=== PATIENT | female | born 1960 | race Hispanic/Latino ===

== ENCOUNTER 2021-08-02 14:10 | Inpatient (IN) | payer OTHER ==
--- OUTSIDE RECORDS SUMMARY | 2021-08-02 14:13 | XMS REPORT | Continuity of Care Document ---
:1960 Author Organization [facility] t Address [address] [place] [address] [place] [id number] Care Team Providers Name Role Phone Shankar MEYER Attending Clinician Unavailable Problems This patient has no known problems. Allergies, Adverse Reactions, Alerts This patient has no known allergies or adverse reactions. Medications This patient has no known medications. Procedures This patient has no known procedures. Results Test Description Test Time Test Comments Results Result Comments Source MISCELLANEOUS LAB ORDER 2021-04-23 10:27:00 Test Item Value Reference Range Interpretation Comme nts SCAN RESULT (test code = 0157137) See scanned [id number] 14:57:00 Test Item Value Reference Range Interpretation Comments FERRITIN (BEAKER) (test code = 425.05 ng/mL 5.00-275.00 H 361) Marriage Therapist ID - JAVI CALPHA FETOPROTEIN (AFP), TUMOR [id number] 14:16:00 Test Item Value Reference Range Interpretation Comments ALPHA-FETOPROTEIN (BEAKER) (test 38.9 ng/mL <10.0 H code = 1094) Marriage Therapist ID - MARJ MHEPATITIS B CORE ANTIBODY, [id number] 14:16:00 Test Item Value Reference Range Interpretation Comments HEPATITIS B CORE TOTAL ANTIBODY Nonreactive Nonreactive (BEAKER) (test code = 497) Marriage Therapist ID - MARJ ADÁN, TIBC, % SAT. (WITHOUT FERRITIN)2021-04-16 13:52:00 Test Item Value Reference Range Interpretation Comments IRON (BEAKER) (test code = 547) 136.0 ug/dL 40.0-160.0 TOTAL IRON BINDING CAPACITY 325 ug/dL 250-450 (BEAKER) (test code = 769) IRON % SATURATION (2) (BEAKER) 42 % 20-55 (test code = 2590) Marriage Therapist ID - MARJ MCOMPREHENSIVE METABOLIC [id number] 13:50:00 Test Item Value Reference Range Interpretation Comments TOTAL PROTEIN 7.9 gm/dL 6.0-8.3 (BEAKER) (test code = 770) ALBUMIN (BEAKER) 3.8 g/dL 3.5-5.0 (test code = 1145) ALKALINE PHOSPHATASE 175 U/L 40-150 H (BEAKER) (test code = 346) BILIRUBIN TOTAL 1.9 mg/dL 0.2-1.2 H (BEAKER) (test code = 377) SODIUM (BEAKER) (test 136 meq/L 136-145 code = 381) POTASSIUM (BEAKER) 4.8 meq/L 3.5-5.1 (test code = 379) CHLORIDE (BEAKER) 106 meq/L 98-107 (test code = 382) CO2 (BEAKER) (test 24 meq/L 22-29 code = 355) BLOOD UREA NITROGEN 10 mg/dL 7-21 (BEAKER) (test code = 354) CREATININE (BEAKER) 0.76 mg/dL 0.57-1.25 (test code = 358) GLUCOSE RANDOM 88 mg/dL 70-105 (BEAKER) (test code = 652) CALCIUM (BEAKER) 9.3 mg/dL 8.4-10.2 (test code = 697) AST (SGOT) (BEAKER) 106 U/L 5-34 H (test code = 353) ALT (SGPT) (BEAKER) 96 U/L 6-55 H (test code = 347) EGFR (BEAKER) (test 94 mL/min/1.73 ESTIMA ANA MARÍA GFR IS code = 1092) sq m NOT ACCURATE CREATININE CLEARANCE IN PREDICTING GLOMERULAR FILTRATION RATE . ESTIMATED GFR I S NOT APPLICABLE FOR DIALYSIS PATIEN TS. Marriage Therapist ID - MARJ MBILIRUBIN, [id number] 13:50:00 Test Item Value Reference Range Interpretation Comments BILIRUBIN DIRECT (BEAKER) (test 1.1 mg/dL 0.1-0.5 H code = 706) Marriage Therapist ID - MARJ MPROTHROMBIN [id number] 13:30:00 Test Item Value Reference Range Interpretation Comments PROTIME (BEAKER) 14.9 seconds 11.9-14.2 H (test code = 759) INR (BEAKER) (test 1.20 See_Comment [Automat ed message] code = 370) The system [employer] generated this result transmitted ref erence range: <=5.90. The reference range was not used to int erpret this result as normal/abnormal . RECOMMENDED COUMADIN/WARFARIN INR THERAPY RANGESSTANDARD DOSE: 2.0 - 3.0 Includes: PROPHYLAXIS forvenous thrombosis, systemic embolization; TREATMENT for venous thrombosis and/or pulmonary embolus.HIGH RISK: Target INR is 2.5-3.5 for patients with mechanical heart valves.CBC W/PLT COUNT & AUTO DIFFERENTIAL 2021-04-16 13:25:00 Test Item Value Reference Range Interpretation Comments WHITE BLOOD CELL COUNT (BEAKER) 8.3 K/ L 3.5-10.5 (test code = 775) RED BLOOD CELL COUNT (BEAKER) 3.96 M/ L 3.93-5.22 (test code = 761) HEMOGLOBIN (BEAKER) (test code = 13.1 GM/DL 11.2-15.7 410) HEMATOCRIT (BEAKER) (test code = 40.8 % 34.1-44.9 411) MEAN CORPUSCULAR VOLUME (BEAKER) 103.0 fL 79.4-94.8 H (test code = 753) MEAN CORPUSCULAR HEMOGLOBIN 33.1 pg 25.6-32.2 H (BEAKER) (test code = 751) MEAN CORPUSCULAR HEMOGLOBIN CONC 32.1 GM/DL 32.2-35.5 L (BEAKER) (test code = 752) RED CELL DISTRIBUTION WIDTH 13.6 % 11.7-14.4 (BEAKER) (test code = 412) PLATELET COUNT (BEAKER) (test code 97 K/CU MM 150-450 L = 756) MEAN PLATELET VOLUME (BEAKER) 12.8 fL 9.4-12.3 H (test code = 754) NUCLEATED RED BLOOD CELLS (BEAKER) 0 /100 WBC 0-0 (test code = 413) NEUTROPHILS RELATIVE PERCENT 62 % (BEAKER) (test code = 429) LYMPHOCYTES RELATIVE PERCENT 23 % (BEAKER) (test code = 430) MONOCYTES RELATIVE PERCENT 10 % (BEAKER) (test code = 431) EOSINOPHILS RELATIVE PERCENT 4 % (BEAKER) (test code = 432) BASOPHILS RELATIVE PERCENT 1 % (BEAKER) (test code = 437) NEUTROPHILS ABSOLUTE COUNT 5.12 K/ L 1.56-6.13 (BEAKER) (test code = 670) LYMPHOCYTES ABSOLUTE COUNT 1.92 K/ L 1.18-3.74 (BEAKER) (test code = 414) MONOCYTES ABSOLUTE COUNT (BEAKER) 0.86 K/ L 0.24-0.36 H (test code = 415) EOSINOPHILS ABSOLUTE COUNT 0.30 K/ L 0.04-0.36 (BEAKER) (test code = 416) BASOPHILS ABSOLUTE COUNT (BEAKER) 0.05 K/ L 0.01-0.08 (test code = 417) IMMATURE GRANULOCYTES-RELATIVE 0 % 0-1 PERCENT (BEAKER) (test code = 2801)
[2021-08-02 15:02] LABS: Basophils % 0.5 % (0-1.3); Hematocrit 40.9 % (36.0-45.0); Lymphocytes % 14.5 % (15.3-44.8); MPV 10.2 fL (7.6-11.3); RBC Red Blood Cell Count 4.05 M/uL (3.86-4.86)
[2021-08-02] MEDS ORDERED: NA CHLORIDE 0.9% 1,000 ML ONE (15:18)
[2021-08-02 16:16] LABS: Potassium 3.7 mmol/L (3.5-5.1)
[2021-08-02] MEDS ORDERED: Ringers Lactate 1,000 ML IV ONE (16:54)
--- NOTE | 2021-08-02 17:20 | RAD REPORT ---
EXAM DESCRIPTION: CT - Abdomen Pelvis W Contrast - 08/02/2021 4:45 pm CLINICAL HISTORY: ABD PAIN COMPARISON: Abdomen W Contrast dated 03/12/2021; Abdomen WWo Cont dated 04/02/2021 TECHNIQUE: Biphasic, helical CT imaging of the abdomen and pelvis was performed following 100 ml non -ionic IV contrast. No oral contrast administered. All CT scans are performed using dose optimization technique as appropriate and may include automated exposure control or mA/KV adjustment according to patient size. FINDINGS: No suspicious findings in the lung bases. Cirrhotic liver changes are noted. No portal vein abnormality seen. No new or enlarging liver lesion. The 13 millimeter subcapsular dome lesion is only minimally visualized on today's study. Spleen and pancreas show no acute findings. Gallbladder and biliary tree are also without suspicious finding. Symmetric renal function is seen with no hydronephrosis or suspicious renal mass. No pyelonephritis o r acute parenchymal process. No bladder abnormalities. No adrenal abnormalities. Normal for age sized uterus demonstrates a large 3.4 centimeter densely calcified fibroid. Lower left uterus shows a 16 m illimeter partially calcified fibroid. No suspicious ovarian finding. Stomach is decompressed which accentuates gastric wall thickness. No acute gastric finding identified . Small bowel loops are not dilated. There are several fluid-filled distal small bowel loops. The cassy endix is unremarkable. Liquid stool is seen in the right-side of the colon. Chen of the rectosigmoid colon are mildly thickened or edematous. There is a trace amount of stranding in the fat adjacent to the rectum. A discrete mass is not seen. No free air, free fluid or pneumatosis. No hernia, mass or bulky lymphadenopathy. No suspicious bony findings. IMPRESSION: No bowel obstruction, free air or surgically emergent finding identifiable. Mild wall thickness in the rectosigmoid colon, more notable in the rectum where there is also adjacen t stranding in the perirectal fat. Rectosigmoid colitis would be the primary consideration. Patient has a few mildly prominent fluid-filled small bowel loops and a concurrent nonspecific enteri tis could also be a consideration.
--- NOTE | 2021-08-02 17:29 | ER ---
Nurse's Notes [facility] Name: Leonila Chaudhry Age: 61 yrs Sex: Female : 1960 Arrival Date: 08/02/2021 Time: 14:16 Bed 27 Private MD: Diagnosis: Acidosis;Diarrhea, unspecified;Rectosigmoid Colitis;Enteritis Presentation: 08/02 14:19 Chief complaint: Patient states: Diarrhea x 6 days. Coronavirus screen: Vaccine status: kg Patient reports receiving the 1st dose of the Covid vaccine. Gee \T\ Gee diarrhea, Client presents with at least one sign or symptom that may indicate coronavirus-19. Standard/surgical mask placed on the client. Provider contacted for isolation considerations. Ebola Screen: Patient negative for fever greater than or equal to 101.5 degrees Fahrenheit, and additional compatible Ebola Virus Disease symptoms Patient denies exposure to infectious person. Patient denies travel to an Ebola-affected area in the 21 days before illness onset. Initial Sepsis Screen: Does the patient meet any 2 criteria? No. Patient's initial sepsis screen is negative. Does the patient have a suspected source of infection? No. Patient's initial sepsis screen is negative. Risk Assessment: Do you want to hurt yourself or someone else? Patient reports no desire to harm self or others. Onset of symptoms was July 27, 2021. 14:19 Method Of Arrival: Ambulatory kg 14:19 Acuity: ADAM 3 kg Triage Assessment: 14:22 General: Appears in no apparent distress. Behavior is calm, cooperative, appropriate kg for age, quiet. Pain: Denies pain. GI: Reports diarrhea. Historical: - Allergies: 14:22 No Known Allergies; kg - Home Meds: 14:22 lithium carbonate Oral [Active]; olanzapine oral [Active]; lisinopril Oral [Active]; kg metoprolol tartrate oral [Active]; amlodipine [Active]; omeprazole oral [Active]; - PMHx: 14:22 Hypertensive disorder; GERD; Bipolar disorder; kg - PSHx: 14:22 section; kg - Immunization history:: Adult Immunizations not up to date, Client reports receiving the Gee \T\ Gee single-dose vaccine. Date received February 05, 2021. - Social history:: Smoking status: Patient reports the use of cigarette tobacco products, smokes one-half pack cigarettes per day. Screenin:01 Abuse screen: Denies threats or abuse. Denies injuries from another. Nutritional ld1 screening: No deficits noted. Tuberculosis screening: No symptoms or risk factors identified. Fall Risk None identified. Assessment: 15:01 General: Appears in no apparent distress. comfortable, Behavior is calm, cooperative, ld1 appropriate for age. Pain: Denies pain. Neuro: Level of Consciousness is awake, alert, obeys commands, Oriented to person, place, time, situation, Appropriate for age. Cardiovascular: Capillary refill < 3 seconds Patient's skin is warm and dry. Respiratory: Airway is patent Respiratory effort is even, unlabored, Respiratory pattern is regular, symmetrical. GI: Abdomen is flat, non-distended, Reports diarrhea, nausea. : No signs and/or symptoms were reported regarding the genitourinary system. EENT: No signs and/or symptoms were reported regarding the EENT system. Derm: No signs and/or symptoms reported regarding the dermatologic system. Musculoskeletal: No signs and/or symptoms reported regarding the musculoskeletal system. 16:15 Reassessment: Patient appears in no apparent distress at this time. No changes from ld1 previously documented assessment. Patient and/or family updated on plan of care and expected duration. Pain level reassessed. Patient is alert, oriented x 3, equal unlabored respirations, skin warm/dry/pink. 16:57 Reassessment: Patient appears in no apparent distress at this time. No changes from ld1 previously documented assessment. Patient and/or family updated on plan of care and expected duration. Pain level reassessed. Patient is alert, oriented x 3, equal unlabored respirations, skin warm/dry/pink. Vital Signs: 14:19 BP 94 / 60; Pulse 48; Resp 18; Temp 97.7(O); Pulse Ox 100% on R/A; Weight 72.57 kg; kg Height 5 ft. 4 in. (162.56 cm); Pain 0/10; 15:01 BP 90 / 53; Pulse 46; Resp 18; Pulse Ox 98% on R/A; Pain 0/10; ld1 16:15 BP 100 / 65; Pulse 51; Resp 18; Pulse Ox 98% on R/A; ld1 16:57 BP 109 / 76; Pulse 53; Resp 18; Pulse Ox 99% on R/A; ld1 14:19 Body Mass Index 27.46 (72.57 kg, 162.56 cm) kg ED Course: 14:16 Patient arrived in ED. as 14:18 [facility] C Contreras [facility]-C [facility]. kb 14:18 Leoncio Polanco MD is Attending Physician. kb 14:22 Triage completed. kg 15:01 Patient has correct armband on for positive identification. Placed in gown. Bed in low ld1 position. Call light in reach. Side rails up X2. quality assurance monitor chassis on. Pulse ox on. NIBP on. Door closed. Noise minimized. Warm blanket given. 15:01 No provider procedures requiring assistance completed. Inserted saline lock: 20 gauge ld1 in right upper arm, using aseptic technique. Blood collected. 16:45 CT Abd/Pelvis - IV Contrast Only In Process Unspecified. EDMS 17:29 Alvaro Goodman is Hospitalizing Provider. kb 17:49 Blair Polanco MD is Hospitalizing Provider. kb Administered Medications: 15:06 Drug: NS 0.9% 1000 ml Route: IV; Rate: 1000 ml; Site: right forearm; ld1 16:34 Follow up: Response: No adverse reaction; IV Status: Completed infusion; IV Intake: ld1 1000ml 16:31 Drug: Lactated Ringers Solution 1000 ml Route: IV; Rate: bolus; Site: right forearm; ld1 17:43 Follow up: Response: No adverse reaction; IV Status: Completed infusion; IV Intake: ld1 1000ml 17:43 Drug: Cipro (ciprofloxacin) 400 mg Volume: 200 ml; Route: IVPB; Infused Over: 60 mins; ld1 Site: right antecubital; 18:57 Follow up: Response: No adverse reaction; IV Status: Completed infusion; IV Intake: ld1 200ml 18:45 Drug: Flagyl (metroNIDAZOLE) 500 mg Volume: 100 ml; Route: IVPB; Rate: 200 ml/hr; ld1 Infused Over: 30 mins; Site: right antecubital; Intake: 16:34 IV: 1000ml; Total: 1000ml. ld1 17:43 IV: 1000ml; Total: 2000ml. ld1 18:57 IV: 200ml; Total: 2200ml. ld1 Outcome: 17:29 Decision to Hospitalize by Provider. kb 21:14 Patient left the ED. ds4 Signatures: Dispatcher [employer] EDMS Maria C Contreras, HYDROELECTRIC SYSTEMS TECHNICIAN-C HYDROELECTRIC SYSTEMS TECHNICIAN-Elida Phillip as Erik Rosenthal ds4 Twila Resendiz RN RN ld1 Brigid Tovar RN RN kg Corrections: (The following items were deleted from the chart) 14: 14:22 PSHx: None; kg kg
--- NOTE | 2021-08-02 17:29 | EDPHYS ---
Physician Documentation [facility] Name: Leonila Chaudhry Age: 61 yrs Sex: Female : 1960 Arrival Date: 08/02/2021 Time: 14:16 Bed 27 Private MD: ED Physician Leoncio Polanco HPI: 08/02 15:53 This 61 yrs old Female presents to ER via Ambulatory with complaints of r/o kb covid. 15:53 The patient presents to the emergency department with diarrhea. Onset: The kb symptoms/episode began/occurred 6 day(s) ago. Possible causes: unknown. The symptoms are aggravated by nothing. The symptoms are alleviated by nothing. Associated signs and symptoms: Pertinent positives: diarrhea, Pertinent negatives: abdominal pain, fever, nausea, vomiting. Severity of symptoms: At their worst the symptoms were moderate in the emergency department the symptoms are unchanged. The patient has not experienced similar symptoms in the past. The patient has not recently seen a physician. Pt reports diarrhea for 6 days. Denies any pain, fever, chills, n/v or other symptoms. Historical: - Allergies: 14:22 No Known Allergies; kg - Home Meds: 14:22 lithium carbonate Oral [Active]; olanzapine oral [Active]; lisinopril Oral [Active]; kg metoprolol tartrate oral [Active]; amlodipine [Active]; omeprazole oral [Active]; - PMHx: 14:22 Hypertensive disorder; GERD; Bipolar disorder; kg - PSHx: 14:22 section; kg - Immunization history:: Adult Immunizations not up to date, Client reports receiving the Gee \T\ Gee single-dose vaccine. Date received February 05, 2021. - Social history:: Smoking status: Patient reports the use of cigarette tobacco products, smokes one-half pack cigarettes per day. ROS: 15:52 Constitutional: Negative for fever, chills, and weight loss. kb 15:52 Abdomen/GI: Positive for diarrhea, Negative for abdominal pain, nausea and vomiting. 15:52 All other systems are negative. Exam: 15:52 Constitutional: This is a well developed, well nourished patient who is awake, alert, kb and in no acute distress. Head/Face: Normocephalic, atraumatic. Cardiovascular: Regular rate and rhythm with a normal S1 and S2. No gallops, murmurs, or rubs. No pulse deficits. Respiratory: Respirations even and unlabored. No increased work of breathing, no retractions or nasal flaring. Abdomen/GI: Soft, non-tender. No distention Skin: Warm, dry with normal turgor. Normal color. MS/ Extremity: Pulses equal, no cyanosis. Neurovascular intact. Full, normal range of motion. Neuro: Awake and alert, GCS 15, oriented to person, place, time, and situation. Moves all extremities. Normal gait. Psych: Awake, alert, with orientation to person, place and time. Behavior, mood, and affect are within normal limits. Vital Signs: 14:19 BP 94 / 60; Pulse 48; Resp 18; Temp 97.7(O); Pulse Ox 100% on R/A; Weight 72.57 kg; kg Height 5 ft. 4 in. (162.56 cm); Pain 0/10; 15:01 BP 90 / 53; Pulse 46; Resp 18; Pulse Ox 98% on R/A; Pain 0/10; ld1 16:15 BP 100 / 65; Pulse 51; Resp 18; Pulse Ox 98% on R/A; ld1 16:57 BP 109 / 76; Pulse 53; Resp 18; Pulse Ox 99% on R/A; ld1 14:19 Body Mass Index 27.46 (72.57 kg, 162.56 cm) kg MDM: 14:20 Patient medically screened. kb 15:52 Data reviewed: vital signs, nurses notes. Data interpreted: Pulse oximetry: on room air kb is 98 %. Interpretation: normal. 17:27 Counseling: I had a detailed discussion with the patient and/or guardian regarding: the kb historical points, exam findings, and any diagnostic results supporting the discharge/admit diagnosis, lab results, radiology results, the need for further work-up and treatment in the hospital. 08/02 14:21 Order name: Basic Metabolic Panel; Complete Time: 16:18 kb 08/02 14:21 Order name: CBC with Diff; Complete Time: 15:07 kb 08/02 14:21 Order name: Stool Culture kb 08/02 14:21 Order name: C.difficile 08/02 16:11 Order name: SARS-COV-2 RT PCR; Complete Time: 16:12 EDMS 08/02 14:21 Order name: IV Saline Lock; Complete Time: 15:01 kb 08/02 14:21 Order name: Labs collected and sent; Complete Time: 15:01 kb 08/02 15:12 Order name: Labs - recollect needed: recollect green top tube; Complete Time: 15:41 bd 08/02 16:20 Order name: CT Abd/Pelvis - IV Contrast Only; Complete Time: 17:22 kb Administered Medications: 15:06 Drug: NS 0.9% 1000 ml Route: IV; Rate: 1000 ml; Site: right forearm; ld1 16:34 Follow up: Response: No adverse reaction; IV Status: Completed infusion; IV Intake: ld1 1000ml 16:31 Drug: Lactated Ringers Solution 1000 ml Route: IV; Rate: bolus; Site: right forearm; ld1 17:43 Follow up: Response: No adverse reaction; IV Status: Completed infusion; IV Intake: ld1 1000ml 17:43 Drug: Cipro (ciprofloxacin) 400 mg Volume: 200 ml; Route: IVPB; Infused Over: 60 mins; ld1 Site: right antecubital; 18:57 Follow up: Response: No adverse reaction; IV Status: Completed infusion; IV Intake: ld1 200ml 18:45 Drug: Flagyl (metroNIDAZOLE) 500 mg Volume: 100 ml; Route: IVPB; Rate: 200 ml/hr; ld1 Infused Over: 30 mins; Site: right antecubital; Disposition Summary: 08/02/21 17:29 Hospitalization Ordered Hospitalization Status: Observation kb Location: Telemetry/[facility] (observation) kb Condition: Stable kb Problem: new kb Symptoms: are unchanged kb Bed/Room Type: Standard kb Provider: Blair Polanco(08/02/21 17:49) kb Room Assignment: 215(08/02/21 19:56) mw Diagnosis - Acidosis kb - Diarrhea, unspecified kb - Rectosigmoid Colitis kb - Enteritis kb Forms: - Medication Reconciliation Form kb - SBAR form kb Addendum: 08/04/2021 07:08 Co-signature as Attending Physician, Leoncio Polanco MD I agree with the assessment and r n plan of care. Attestation: The patient's history, exam findings, diagnostics, and a summary of any interventions or procedures was reviewed in detail with Maria C GOODMAN. Signatures: Dispatcher [employer] EDMS Maria C Contreras, HYPERBARIC TECHNOLOGIST-C HYPERBARIC TECHNOLOGIST-Ckb Erlinda Thompson Martha RN RN mw Leoncio Polanco MD MD rn Dibbern, Lauren, RN RN ld1 Brigid Tovar RN RN kg Corrections: (The following items were deleted from the chart) 08/02 14:26 14:22 PSHx: None; kg kg 15:14 14:21 CORONAVIRUS+MR.LAB.BRZ ordered. EDMS EDMS 17:49 17:29 Alvaro Goodman kb kb 19:56 17:29 kb maricruz
[2021-08-02] MEDS ORDERED: METRONIDAZOLE 500mg IVPB 500 MG/100 ML BAG IV ONE (18:01)
[2021-08-02] MEDS ORDERED: CIPROFLOXACIN 400mg IV 400 MG/200 ML BAG IV ONE (18:01)
--- NOTE | 2021-08-02 18:20 | P.HP ---
Certification for Inpatient Patient admitted to: Inpatient Patient will require the following post-hospital care: None Practitioner: I am a practitioner with admitting privileges, knowledge of patient current condition, hospital course, and medical plan of care. Services: Services provided to patient in accordance with Admission requirements found in Title 42 Section 412.3 of the Code of Federal Regulations Patient History Date of Service: 08/02/21 Reason for admission: Colitis, dehydration History of Present Illness: 61-year-old [place] female with history of bipolar disorder, hypertension, GERD presents emergency department for diarrhea. Patient reports ongoing diarrhea over the course of last 1 week, denies any nausea/vomiting/abdominal pain. Patient was evaluated in the emergency department labs are significant for sodium 141 potassium 3.7 chloride 120 carbon dioxide 19 GFR 65 white blood cell count 13.9 platelets 115 MCV [address] abdomen pelvis demonstrated no bowel obstruction free air or surgically emergent findings identified, mild wall thickening in the rectosigmoid colon more notable in the rectum where there is also adjacent stranding in the perirectal fat, rectosigmoid colitis with a primary consideration. Also noted nonspecific enteritis pattern. Patient was treated with Cipro/Flagyl in the emergency department, ED provider wishes to admit for further evaluation and management of rectosigmoid colitis/dehydration/enteritis. - Past Medical/Surgical History -: GERD -: BPD -: Hypertension -: Psychosocial/ Personal History: Unemployed, lives with her daughter - Family History Father -: Heart disease Mother -: Heart disease - Social History Smoking Status: Never smoker Alcohol use: No CD- Drugs: No Caffeine use: Yes Place of Residence: Home Review of Systems 10-point ROS is otherwise unremarkable Gastrointestinal: Diarrhea Physical Examination - Physical Exam General: Alert, In no apparent distress, Oriented x3 HEENT: Atraumatic, PERRLA, Other (Mucous membranes dry), EOMI, Sclerae nonicteric Neck: Supple, 2+ carotid pulse no bruit, No LAD, Without JVD or thyroid abnormality Respiratory: Clear to auscultation bilaterally, Normal air movement Cardiovascular: Regular rate/rhythm, Normal S1 S2 Gastrointestinal: Normal bowel sounds, No tenderness Musculoskeletal: No tenderness Integumentary: No rashes Neurological: Normal speech, Normal strength at 5/5 x4 extr, Normal tone, Normal affect - Studies Laboratory Data (last 24 hrs) 08/02/21 15:39: Sodium 141, Potassium 3.7, BUN 18, Creatinine 0.89, Glucose 80 08/02/21 14:55: WBC 13.90 H, Hgb 13.6, Hct 40.9, Plt Count 115 L Assessment and Plan - Plan Assessment: Diarrhea/dehydration secondary to Retrosigmoid colitis/enteritis Diarrhea Hypertension GERD BPD Plan: Diarrhea/dehydration secondary to retrosigmoid colitis/enteritis: Patient without abdominal pain or vomiting this time continue with IV antibiotics Cipro/Flagyl, clear liquid diet advance as tolerated. P.o. probiotics, stool cultures/O&P/C. difficile pending. Anticipate clinical improvement over the course next 24 to 48 hours. Hypertension: Obtain and continue home medications GERD: Obtain and continue home medications BPD: Obtain and continue home medication DVT PPX: Lovenox Code status: Full Discharge Plan: Home Plan to discharge in: 48 Hours - Advance Directives Does patient have a Living Will: No Does patient have a Durable POA for Healthcare: No - Code Status/Comfort Care Code Status Assessed: Yes (Full code) Critical Care: No Time Spent Managing Pts Care (In Minutes): 55
[2021-08-02] MEDS ORDERED: ACETAMINOPHEN 500 MG TAB PO PRN (19:18)
[2021-08-02] MEDS ORDERED: ONDANSETRON 4 MG/2 ML VIAL IV PRN (19:18)
[2021-08-02 21:36] VITALS: O2SAT 99
[2021-08-02] MEDS: LACTOBACILLUS/ACIDOPHILUS TAB PO SCH (21:41)
[2021-08-03] MEDS: METRONIDAZOLE 500mg IVPB 500 MG/100 ML BAG IV SCH ×3 (00:12→16:44)
[2021-08-03 01:22] VITALS: BMI 29.6
[2021-08-03 01:32] LABS: Urine Appearance CLEAR (Clear); Urine Bilirubin NEGATIVE (Negative); Urine Blood NEGATIVE (Negative); Urine Color YELLOW (Yellow); Urine Glucose NEGATIVE (Negative); Urine Protein NEGATIVE (Negative); Urine Specific Gravity 1.015 (1.005-1.030); Urine Urobilinogen 0.2 mg/dL (0.2-1.0)
[2021-08-03 01:42] LABS: Urine Microscopic Reflex NO UMIC
[2021-08-03 05:56] LABS: Absolute Lymphocytes (CBC) 1.7 K/uL (0.7-4.9); Basophils % 0.6 % (0-1.3); Hematocrit 33.5 % (36.0-45.0); MPV 10.5 fL (7.6-11.3); RBC Red Blood Cell Count 3.32 M/uL (3.86-4.86)
[2021-08-03 06:32] LABS: ALT/SGPT 78 U/L (12-78); AST/SGOT 69 U/L (15-37); Albumin 2.6 g/dL (3.4-5.0); Alkaline Phosphatase 120 U/L (45-117); BUN Blood Urea Nitrogen 15 mg/dL (7-18); Bicarbonate 19 mmol/L (21-32); Bilirubin Total 1.4 mg/dL (0.2-1.0); Glucose Level 103 mg/dL (74-106); HDL Cholesterol 13 mg/dL (40-60); Magnesium 1.9 mg/dL (1.8-2.4); Potassium 4.2 mmol/L (3.5-5.1); Protein, Total 6.1 g/dL (6.4-8.2); Sodium Level 140 mmol/L (136-145)
[2021-08-03 06:36] LABS: LDL Cholesterol, Calculated 24 (<130)
[2021-08-03] MEDS: LACTOBACILLUS/ACIDOPHILUS TAB PO SCH ×3 (08:14→21:00)
[2021-08-03] MEDS: CIPROFLOXACIN 400mg IV 400 MG/200 ML BAG IV SCH ×2 (08:15→21:01)
[2021-08-03] MEDS: ENOXAPARIN 40 MG/0.4 ML SQ SCH (08:15)
[2021-08-03 09:07] LABS: Blood Morphology Comment NOT SEEN (NOT SEEN); Platelet Estimate DECR; White Blood Cell Scan OK (OK)
--- NOTE | 2021-08-03 09:32 | P.PN ---
Subjective Date of Service: 08/03/21 Chief Complaint: Colitis, dehydration Subjective: Improving (feeling better this morning, no abd pain, diarrhea improving. no SOB/chest pain. some appetite this morning) Review of Systems 10-point ROS is otherwise unremarkable Physical Examination - Vital Signs Temperature: 98.2 F Blood Pressure: 113/59 Pulse: 70 Respirations: 20 Pulse Ox (%): 96 - Studies Laboratory Data (last 24 hrs) 08/02/21 15:39: Sodium 141, Potassium 3.7, BUN 18, Creatinine 0.89, Glucose 80 08/02/21 14:55: WBC 13.90 H, Hgb 13.6, Hct 40.9, Plt Count 115 L Assessment & Plan Physician Review Additional Text: Physical Exam General: Alert, In no apparent distress, Oriented x3 HEENT: EOMI, Sclerae nonicteric Neck: Supple, 2+ carotid pulse no bruit, No LAD Respiratory: Clear to auscultation bilaterally, Normal air movement Cardiovascular: Regular rate/rhythm, Normal S1 S2 Gastrointestinal: soft, nontender, nondistended Integumentary: No rashes Problem List Diarrhea/dehydration secondary to Retrosigmoid colitis/enteritis metabolic acidosis Hypertension GERD BPD -continue IV antibiotics - cipro/flagyl. CLD and ADAT -continue probiotics -acidosis likely from intestinal loss, improving -f/u stool cultures/O&P, c diff -HTN - initially held secondary to hypotension -confirm / continue home medications -will need c-scope in near future Dispo: anticipated dc home in 24-48hrs Time Spent Managing Pts Care (In Minutes): 35
[2021-08-03] MEDS ORDERED: OLANZapine 10 MG TABLET PO SCH (21:00)
[2021-08-03] MEDS: LITHIUM CARBONATE 300 MG TAB PO SCH (21:00)
[2021-08-04] MEDS: METRONIDAZOLE 500mg IVPB 500 MG/100 ML BAG IV SCH (00:04)
[2021-08-04 05:42] LABS: Absolute Lymphocytes (CBC) 1.9 K/uL (0.7-4.9); Basophils % 0.6 % (0-1.3); Hematocrit 32.3 % (36.0-45.0); Lymphocytes % 22.8 % (15.3-44.8); MPV 10.3 fL (7.6-11.3); RBC Red Blood Cell Count 3.24 M/uL (3.86-4.86)
[2021-08-04 05:54] LABS: Potassium 4.1 mmol/L (3.5-5.1)
[2021-08-04 05:55] LABS: Albumin 2.6 g/dL (3.4-5.0); Bilirubin Total 1.3 mg/dL (0.2-1.0); Magnesium 1.7 mg/dL (1.8-2.4)
[2021-08-04] MEDS: ENOXAPARIN 40 MG/0.4 ML SQ SCH (08:49)
[2021-08-04] MEDS: LACTOBACILLUS/ACIDOPHILUS TAB PO SCH (08:50)
[2021-08-04] MEDS: LITHIUM CARBONATE 300 MG TAB PO SCH (08:55)
[2021-08-04] MEDS ORDERED: MAGNESIUM SULFATE 1 gm IVPB 1 GM/100 ML BAG IV ONE (09:00)
[2021-08-04] MEDS ORDERED: CIPROFLOXACIN HCL 500 MG TAB PO SCH (09:00)
[2021-08-04] MEDS ORDERED: metroNIDAZOLE 500 MG TABLET PO SCH (09:00)
[2021-08-04] MEDS ORDERED: NA CHLORIDE 0.9% 500 ML IV ONE (09:52)
[2021-08-04 11:46] VITALS: BP 102/56; TEMP 97.9
--- NOTE | 2021-08-04 16:41 | P.DS ---
Admission Date: 08/02/21 Discharge Date: 08/04/21 Disposition: ROUTINE DISCHARGE Discharge Condition: GOOD Reason for Admission: Colitis, dehydration Procedures: CT abdomen/pelvis (08/02): FINDINGS: No suspicious findings in the lung bases. Cirrhotic liver changes are noted. No portal vein abnormality seen. No new or enlarging liver lesion. The 13 millimeter subcapsular dome lesion is only minimally visualized on today's study. Spleen and pancreas show no acute findings. Gallbladder and biliary tree are also without suspicious finding. Symmetric renal function is seen with no hydronephrosis or suspicious renal mass . No pyelonephritis or acute parenchymal process. No bladder abnormalities. No adrenal abnormalities. Normal for age sized uterus demonstrates a large 3.4 centimeter densely calcified fibroid. Lower left uterus shows a 16 millimeter partially calcified fibroid. No suspicious ovarian finding. Stomach is decompressed which accentuates gastric wall thickness. No acute gastric finding identified. Small bowel loops are not dilated. There are several fluid-filled distal small bowel loops. The appendix is unremarkable. Liquid stool is seen in the right-side of the colon. Chen of the rectosigmoid colon are mildly thickened or edematous. There is a trace amount of stranding in the fat adjacent to the rectum. A discrete mass is not seen. No free air, free fluid or pneumatosis. No hernia, mass or bulky lymphadenopathy. No suspicious bony findings. IMPRESSION: No bowel obstruction, free air or surgically emergent finding identifiable. Mild wall thickness in the rectosigmoid colon, more notable in the rectum where there is also adjacent stranding in the perirectal fat. Rectosigmoid colitis would be the primary consideration. Patient has a few mildly prominent fluid-filled small bowel loops and a concurrent nonspecific enteritis could also be a consideration. Problem List Diarrhea/dehydration secondary to Retrosigmoid colitis/enteritis metabolic acidosis secondary to GI loss / diarrhea Hypertension GERD Bipolar disorder Brief History of Present Illness: 61-year-old [place] female with history of bipolar disorder, hypertension, GERD presents emergency department for diarrhea. Patient reports ongoing diarrhea over the course of last 1 week, denies any nausea/vomiting/abdominal pain. Patient was evaluated in the emergency department labs are significant for sodium 141 potassium 3.7 chloride 120 carbon dioxide 19 GFR 65 white blood cell count 13.9 platelets 115 MCV [address] abdomen pelvis demonstrated no bowel obstruction free air or surgically emergent findings identified, mild wall thickening in the rectosigmoid colon more notable in the rectum where there is also adjacent stranding in the perirectal fat, rectosigmoid colitis with a primary consideration. Also noted nonspecific enteritis pattern. Patient was treated with Cipro/Flagyl in the emergency department, ED provider wishes to admit for further evaluation and management of rectosigmoid colitis/dehydration/enteritis. Hospital Course: Patient was empirically treated with IV ciprofloxacin and Flagyl. She had improvement of her symptoms and no longer had diarrhea. She remained afebrile, her leukocytosis resolved, and she was tolerating regular diet and feeling much better. She was subsequently discharged home to complete a total of 2-week courses of antibiotics. Advised to follow-up with her PCP in 3-5 days. Advised to follow-up with her GI doctor, may benefit from a colonoscopy in the near future. Daughter states she had a colonoscopy approximately 6 months ago. Vital Signs/Physical Exam: Physical Exam General: Alert, In no apparent distress, Oriented x3 HEENT: EOMI, Sclerae nonicteric Neck: Supple, No LAD Respiratory: Clear to auscultation bilaterally, Normal air movement Cardiovascular: Regular rate/rhythm, Normal S1 S2 Gastrointestinal: soft, nontender, nondistended Integumentary: No rashes Temp Pulse Resp BP Pulse Ox 97.9 F 94 H 20 102/56 L 90 L 08/04/21 11:45 08/04/21 11:45 08/04/21 11:45 08/04/21 11:45 08/04/21 11:45 Laboratory Data at Discharge: WBC 8.10 K/uL (4.3-10.9) 08/04/21 05:07 Hgb 11.0 g/dL (12.0-15.0) L 08/04/21 05:07 Hct 32.3 % (36.0-45.0) L 08/04/21 05:07 Plt Count 95 K/uL (152-406) L 08/04/21 05:07 Sodium 138 mmol/L (136-145) 08/04/21 05:07 Potassium 4.1 mmol/L (3.5-5.1) 08/04/21 05:07 BUN 8 mg/dL (7-18) 08/04/21 05:07 Creatinine 0.80 mg/dL (0.55-1.3) 08/04/21 05:07 Glucose 95 mg/dL (74-106) 08/04/21 05:07 Magnesium 1.7 mg/dL (1.8-2.4) L 08/04/21 05:07 Total Bilirubin 1.3 mg/dL (0.2-1.0) H 08/04/21 05:07 AST 71 U/L (15-37) H 08/04/21 05:07 ALT 76 U/L (12-78) 08/04/21 05:07 Alkaline Phosphatase 140 U/L (45-117) H 08/04/21 05:07 Triglycerides 64 mg/dL (<150) 08/03/21 05:38 Cholesterol < 50 mg/dL (<200) 08/03/21 05:38 HDL Cholesterol 13 mg/dL (40-60) L 08/03/21 05:38 Cholesterol/HDL Ratio 3.85 08/03/21 05:38 Home Medications: Amlodipine Besylate 10 mg PO DAILY 08/02/21 Lisinopril [Zestril] 40 mg PO DAILY 08/02/21 [place] Carbonate [Lithotabs *] 300 mg PO BID 08/02/21 Metoprolol Tartrate [Lopressor*] 50 mg PO DAILY 08/02/21 OLANZapine [Olanzapine] 10 mg PO BEDTIME 08/02/21 Omeprazole [Prilosec] 40 mg PO DAILY 08/02/21 hydrOXYzine HCL [Atarax*] 25 mg PO BID 08/02/21 Ciprofloxacin HCl [Cipro 500 MG Tablet] 500 mg PO BID 12 Days #24 tab 08/04/21 metroNIDAZOLE [Flagyl] 500 mg PO Q8H 12 Days #36 tablet 08/04/21 New Medications: Ciprofloxacin HCl [Cipro 500 MG Tablet] 500 mg PO BID 12 Days #24 tab metroNIDAZOLE [Flagyl] 500 mg PO Q8H 12 Days #36 tablet Physician Discharge Instructions: PROBLEM: Colitis GOAL: Clear understanding of disease process INSTRUCTIONS: You were found to have rectosigmoid colitis - and improved with antibiotics. Your blood counts normalized, and you were able to tolerate soft foods. You are discharged home to continue antibiotics for an additional 12 days. Follow up with your PCP in 3-5 days. You were noted to have low-normal blood pressure, at times down to 100/60. Recommend holding your blood pressure medications - metoprolol, amlodipine, li sinopril. Check your blood pressure daily at home and can restart your metoprolol once your blood pressure (top number) is >130. Then you can restart your amlodipine or lisinopril one at a time afterwards if your blood pressure remains > 130. Avoid restarting all of them at once so that your blood pressure doesn't get too low. Your lithium may be at too high of a dose, recommend following up your doctor to obtain a lithium level and adjust the dosage as needed. If symptoms worsen, please go to the ER. If you have any questions, feel free to call . Diet: [place] Activity: Ad candice DME DME: Date Ordered: Name of Company: [employer] Services Needed: None Name of Company: Date or Referral: IMMUNIZATION Influenza Vaccine Indicated: Influenza Vaccine Given: Date Given: Pneumonia Vaccine Indicated: No Pneumonia Vaccine Given: Date Given: Diet: [place] Activity: Ad candice Followup: Johnathon Chandler FNP [Primary Care Provider] - Time spent managing pt's care (in minutes): 45
== END 2021-08-04 13:45 | disposition home or self-care (01) | DRG 392 ==
LOC: ER 14:10 → ERHOLD 18:09 → 2ND 20:39
PROVIDERS: ADMIT Hospitalist; ATTEND Hospitalist
DX: K52.9 Noninfective gastroenteritis and colitis, unspecified (principal); E87.2 Acidosis; E86.0 Dehydration; I10 Essential (primary) hypertension; K21.9 Gastro-esophageal reflux disease without esophagitis; F31.9 Bipolar disorder, unspecified; Z20.822 Contact with and (suspected) exposure to COVID-19
CPT/HCPCS: 36415; 74177; 80048; 80053; 80061; 81003; 83735; 84439; 84443; 85025; 96361; 96365; 96375; 99284; J0744; J1650; J3475; J7030; J7040; J7120; Q9967; U0003

== ENCOUNTER 2021-09-23 16:40 | Observation (INO) | payer OTHER ==
--- NOTE | 2021-09-23 18:02 | RAD REPORT ---
EXAM DESCRIPTION: RAD - Chest Single View - 09/23/2021 5:55 pm CLINICAL HISTORY: edema;Abdominal distention COMPARISON: Abdomen Pelvis W Contrast dated 08/02/2021 FINDINGS: Lines: None. Lungs: Mild basilar opacities. Pleural: No significant pleural effusions or pneumothorax. Cardiac: The heart size is within normal limits. Bones: No acute fractures. Other: IMPRESSION: Mild basilar opacities likely representing atelectasis. No definite process identified
[2021-09-23 18:20] LABS: Absolute Lymphocytes (CBC) 1.7 K/uL (0.7-4.9); Basophils % 0.6 % (0-1.3); Hematocrit 33.5 % (36.0-45.0); Lymphocytes % 25.7 % (15.3-44.8); RBC Red Blood Cell Count 3.29 M/uL (3.86-4.86)
[2021-09-23 18:27] LABS: Protime INR 1.31
[2021-09-23 18:41] LABS: ALT/SGPT 71 U/L (12-78); AST/SGOT 87 U/L (15-37); Albumin 2.5 g/dL (3.4-5.0); Alkaline Phosphatase 160 U/L (45-117); BUN Blood Urea Nitrogen 11 mg/dL (7-18); Bicarbonate 22 mmol/L (21-32); Bilirubin Direct 0.9 mg/dL (0-0.2); Bilirubin Total 1.5 mg/dL (0.2-1.0); Glucose Level 116 mg/dL (74-106); Magnesium 2.1 mg/dL (1.8-2.4); NT PRO-BNP 371 pg/mL (<125); Potassium 3.5 mmol/L (3.5-5.1); Protein, Total 6.9 g/dL (6.4-8.2); Sodium Level 141 mmol/L (136-145); Troponin (Emerg Dept Use Only) < 0.02 ng/mL (0.0-0.045)
--- NOTE | 2021-09-23 19:13 | RAD REPORT ---
EXAM DESCRIPTION: US - Extrem Venous W Compress Dany - 09/23/2021 6:37 pm CLINICAL HISTORY: Swelling COMPARISON: None. TECHNIQUE: Real-time sonographic evaluation of the bilateral lower extremity deep venous systems was performed. FINDINGS: Normal compressibility, flow augmentation, phasic flow and spontaneous flow is identified in both the left and right lower extremity deep venous systems. No intraluminal filling defects seen. IMPRESSION: No DVT in either lower extremity.
--- NOTE | 2021-09-23 20:05 | RAD REPORT ---
EXAM DESCRIPTION: CTAbdomen Pelvis W Contrast - 09/23/2021 7:47 pm CLINICAL HISTORY: ABDOMINAL DISTENTION COMPARISON: Abdomen Pelvis W Contrast dated 08/02/2021bdomen Pelvis W Contrast dated 08/02/2021; Abdomen WWo Cont dated 04/02/2021 TECHNIQUE: CT of the abdomen and pelvis was performed. All CT scans are performed using dose optimization technique as appropriate and may include automated exposure control or mA/KV adjustment according to patient size. FINDINGS: Lower chest: Small bilateral effusions. Moderately thickened distal esophagus. Paraesophag eal varices. Liver: Cirrhotic with liver morphology with heterogeneous enhancement an small subcentimeter nodules. The portal vein is patent. Biliary: No biliary ductal dilatation. Stomach: No significant focal abnormality. Duodenum: No significant focal abnormality. Pancreas: No significant abnormality. Spleen: No significant abnormality. Adrenal: No suspicious lesions. Kidney/ureter: No hydronephrosis. No renal calculi. Too small to characterize and/or benign appearing renal lesions are noted. Retroperitoneum: No retroperitoneal adenopathy. Vascular: Atherosclerosis. Bowel: Clinical wall thickening favored to be due to presence of portal hypertension.. Peritoneum: No ascites or free air. Bladder: Grossly unremarkable. Reproductive: No adnexal masses. Calcified uterine fibroid. Bones: No acute fracture. Other: n/a IMPRESSION: Interval development of large volume of ascites presumably due to portal hypertension. C irrhotic liver morphology. Portal vein is patent. Suggest nonemergent follow-up MRI for the findings on the comparison MRI from 04/02/2021.
[2021-09-23 20:56] LABS: Blood Morphology Comment NOT SEEN (NOT SEEN); Platelet Estimate DECR; White Blood Cell Scan OK (OK)
--- NOTE | 2021-09-23 21:21 | ER ---
Nurse's Notes [facility] Name: Leonila Chaudhry Age: 61 yrs Sex: Female : 1960 Arrival Date: 09/23/2021 Time: 16:42 Bed 23 Private MD: Diagnosis: Other cirrhosis of liver;Pleural effusion in other conditions classified elsewhere;Dyspnea, unspecified Presentation: 09/23 17:00 Chief complaint: Patient states: My feet started swelling 3 months ago, but today my ld1 abdomen started throbbing and swelling too. Coronavirus screen: At this time, the client does not indicate any symptoms associated with coronavirus-19. Ebola Screen: No symptoms or risks identified at this time. Initial Sepsis Screen: Does the patient meet any 2 criteria? No. Patient's initial sepsis screen is negative. Does the patient have a suspected source of infection? No. Patient's initial sepsis screen is negative. Risk Assessment: Do you want to hurt yourself or someone else? Patient reports no desire to harm self or others. Onset of symptoms was September 23, 2021. 17:00 Method Of Arrival: Ambulatory ld1 17:00 Acuity: ADAM 3 ld1 Triage Assessment: 17:02 General: Appears in no apparent distress. comfortable, Behavior is calm, cooperative, ld1 appropriate for age. Pain: Denies pain. EENT: No signs and/or symptoms were reported regarding the EENT system. Neuro: Level of Consciousness is awake, alert, obeys commands, Oriented to person, place, time, situation, Appropriate for age. Cardiovascular: Capillary refill < 3 seconds Patient's skin is warm and dry. Cardiovascular:. Cardiovascular: Cardiovascular: Reports swelling to CHERYL lower extremities. Respiratory: Airway is patent Respiratory effort is even, unlabored, Respiratory pattern is regular, symmetrical. Respiratory:. GI: Abdomen is round distended, Reports bloating. GI:. GI:. : No signs and/or symptoms were reported regarding the genitourinary system. Derm: No signs and/or symptoms reported regarding the dermatologic system. Derm:. Derm:. Musculoskeletal: No signs and/or symptoms reported regarding the musculoskeletal system. Historical: - Allergies: 17:02 No Known Allergies; ld1 - Home Meds: 17:02 Amlodipine [Active]; lisinopril Oral [Active]; [place] Carbonate Oral [Active]; ld1 Metoprolol Tartrate Oral [Active]; olanzapine Oral [Active]; Omeprazole Oral [Active]; - PMHx: 17:02 Bipolar disorder; Hypertensive disorder; GERD; ld1 17:54 Cirrhosis of liver; Hepatitis C; vg1 - PSHx: 17:02 section; ld1 - Immunization history:: Adult Immunizations up to date, Client reports receiving the Gee \T\ Gee single-dose vaccine. - Social history:: Smoking status: Patient reports the use of cigarette tobacco products, smokes one-half pack cigarettes per day, Patient/guardian denies using alcohol, street drugs. Screenin:52 Abuse screen: Denies threats or abuse. Denies injuries from another. Nutritional vg1 screening: No deficits noted. Tuberculosis screening: No symptoms or risk factors identified. Fall Risk No fall in past 12 months (0 pts). No secondary diagnosis (0 pts). IV access (20 points). Ambulatory Aid- None/Bed Rest/Nurse Assist (0 pts). Gait- Normal/Bed Rest/Wheelchair (0 pts) Mental Status- Oriented to own ability (0 pts). Total Doss Fall Scale indicates No Risk (0-24 pts). Assessment: 17:50 General: Appears in no apparent distress. comfortable, Behavior is calm, cooperative. vg1 Pain: Denies pain. Neuro: Level of Consciousness is awake, alert, obeys commands, Oriented to person, place, time, situation. Cardiovascular: Patient's skin is warm and dry. Respiratory: Reports shortness of breath at rest on exertion Airway is patent Respiratory effort is even, unlabored. GI: Abdomen is distended, Last BM was September 23, 2021. Bowel sounds hypoactive in right upper quadrant, left upper quadrant, right lower quadrant and left lower quadrant Abd is soft and non tender X 4 quads. Reports bloating, since x1 month Patient currently denies diarrhea, nausea, vomiting. : No signs and/or symptoms were reported regarding the genitourinary system. EENT: No signs and/or symptoms were reported regarding the EENT system. Derm: Skin is intact, is healthy with good turgor. Musculoskeletal: Circulation, motion, and sensation intact. Swelling present in CHERYL lower extremities. 18:40 Reassessment: Patient appears in no apparent distress at this time. No changes from vg1 previously documented assessment. Patient and/or family updated on plan of care and expected duration. Pain level reassessed. Patient is alert, oriented x 3, equal unlabored respirations, skin warm/dry/pink. 18:55 Reassessment: Brandon RN at bedside attempting IV. vg1 19:32 Reassessment: Patient appears in no apparent distress at this time. No changes from vg1 previously documented assessment. Patient and/or family updated on plan of care and expected duration. Pain level reassessed. Patient is alert, oriented x 3, equal unlabored respirations, skin warm/dry/pink. 20:40 Reassessment: Patient appears in no apparent distress at this time. No changes from vg1 previously documented assessment. Patient and/or family updated on plan of care and expected duration. Pain level reassessed. Patient is alert, oriented x 3, equal unlabored respirations, skin warm/dry/pink. Patient denies pain at this time. 22:30 Reassessment: No changes from previously documented assessment. Patient and/or family fu updated on plan of care and expected duration. Pain level reassessed. Patient is alert, oriented x 3, equal unlabored respirations, skin warm/dry/pink. Vital Signs: 17:00 BP 139 / 85; Pulse 91; Resp 22; Temp 98.2(O); Pulse Ox 98% on R/A; Weight 77.11 kg; ld1 Height 5 ft. 4 in. (162.56 cm); Pain 0/10; 17:54 BP 118 / 81; Pulse 85; Resp 16; Pulse Ox 100% ; vg1 18:35 BP 138 / 90; Pulse 84; Resp 18; Pulse Ox 100% ; vg1 19:22 BP 103 / 80; Pulse 80; Resp 17; Pulse Ox 100% ; vg1 20:30 BP 112 / 79; Pulse 81; Resp 19; Pulse Ox 100% ; vg1 20:55 BP 106 / 71; Pulse 81; Resp 22; Pulse Ox 100% ; vg1 22:53 BP 135 / 95; Pulse 83; Resp 20; Temp 98.9(O); Pulse Ox 100% on R/A; Pain 0/10; fu 17:00 Body Mass Index 29.18 (77.11 kg, 162.56 cm) ld1 ED Course: 16:42 Patient arrived in ED. as 17:02 Triage completed. ld1 17:02 Arm band placed on right wrist. ld1 17:18 Eduardo Tatum PA is PHCP. cp 17:18 Leoncio Polanco MD is Attending Physician. cp 17:42 Elvia Barker, RN is Primary Nurse. vg1 17:52 Patient has correct armband on for positive identification. Bed in low position. Call vg1 light in reach. Side rails up X 1. 17:52 No provider procedures requiring assistance completed. vg1 17:55 XRAY Chest (1 view) In Process Unspecified. EDMS 18:05 Initial lab(s) drawn, by me, sent to lab. Missed attempt(s): 24 gauge in right vg1 antecubital area. 18:37 US Extremity Venous W Compression Cheryl In Process Unspecified. EDMS 19:18 Inserted saline lock: 20 gauge in left upper arm, using aseptic technique. ,using vg1 aseptic technique. Midline, 10 cm Left Bicep, completed by Brandon SAMSON. 19:47 CT Abd/Pelvis - IV Contrast Only In Process Unspecified. EDMS 21:20 Meet Flynn PA is Hospitalizing Provider. cp 21:22 COVID swab sent to lab. vg1 21:59 Report given to Cathi SAMSON. vg1 22:55 Patient admitted, IV remains in place. fu Administered Medications: No medications were administered Outcome: 21:21 Decision to Hospitalize by Provider. cp 23:40 Admitted to Med/surg accompanied by nurse, via stretcher, room 225 , Report called to jorge Reece RN 23:40 Condition: good 23:40 Instructed on the need for admit, Demonstrated understanding of instructions. 23:50 Patient left the ED. fu Signatures: Dispatcher [employer] EDMS Elida Lehman as Eduardo Tatum PA PA cp Umadhay, Felix, RN Elvia Marlow, RN RN vg1 Twila Resendiz, MALI RN ld1 Corrections: (The following items were deleted from the chart) 17:54 17:50 Respiratory: Airway is patent Respiratory effort is even, unlabored, vg1 vg1 17:54 17:50 GI: Abdomen is distended, Last BM was September 23, 2021. Abd is soft and non vg1 tender X 4 quads. Reports bloating, since x1 month Patient currently denies diarrhea, nausea, vomiting, vg1 18:17 17:50 Cardiovascular: Patient's skin is warm and dry. [facility] 18:17 17:50 Derm: Skin is intact, is healthy with good turgor, [place] [id number] 18: 17:50 Musculoskeletal: Circulation, motion, and sensation intact. [facility] 23: 22:54 Admitted to Med/surg room 225 , fu fu : 22:54 Admitted to Med/surg accompanied by tech, room 225 , Report called to RN fu fu 22:54 Condition: good fu fu 22:54 Instructed on the need for admit, Demonstrated understanding of instructions, fu fu 22:54 Admitted to Med/surg accompanied by nurse, via stretcher, room 225 , Report fu called to MALI Reece fu
--- NOTE | 2021-09-23 21:21 | EDPHYS ---
Physician Documentation [facility] Name: Leonila Chaudhry Age: 61 yrs Sex: Female : 1960 Arrival Date: 09/23/2021 Time: 16:42 Bed 23 Private MD: ED Physician Leoncio Polanco HPI: 09/23 17:30 This 61 yrs old Female presents to ER via Ambulatory with complaints of cp Abdominal Swelling, Feet Swelling. 17:30 The patient presents with abdominal pain that is diffuse, abdominal distention that is cp diffuse. Onset: The symptoms/episode began/occurred gradually, and became worse today. 17:30 The symptoms do not radiate. Associated signs and symptoms: Pertinent positives: cp shortness of breath, lower extremity edema, Pertinent negatives: chest pain, fever, vomiting. The symptoms are described as constant. Historical: - Allergies: 17:02 No Known Allergies; ld1 - Home Meds: 17:02 Amlodipine [Active]; lisinopril Oral [Active]; [place] Carbonate Oral [Active]; ld1 Metoprolol Tartrate Oral [Active]; olanzapine Oral [Active]; Omeprazole Oral [Active]; - PMHx: 17:02 Bipolar disorder; Hypertensive disorder; GERD; ld1 17:54 Cirrhosis of liver; Hepatitis C; vg1 - PSHx: 17:02 section; ld1 - Immunization history:: Adult Immunizations up to date, Client reports receiving the Gee \\T\\ Gee single-dose vaccine. - Social history:: Smoking status: Patient reports the use of cigarette tobacco products, smokes one-half pack cigarettes per day, Patient/guardian denies using alcohol, street drugs. ROS: 17:35 Respiratory: Positive for shortness of breath, at rest. Negative for cough, wheezing. cp 17:35 Eyes: Negative for injury, pain, redness, and discharge. cp 17:35 Constitutional: Negative for body aches, chills, fever. 17:35 Cardiovascular: Positive for edema, Negative for chest pain, palpitations. 17:35 Abdomen/GI: Positive for abdominal distension, Negative for abdominal pain, vomiting, diarrhea, constipation, black/tarry stool, rectal bleeding. 17:35 Back: Negative for pain at rest, pain with movement. 17:35 MS/extremity: Negative for injury or acute deformity, decreased range of motion. 17:35 Skin: Negative for cellulitis, rash. 17:35 Neuro: Negative for altered mental status, headache, syncope, weakness. 17:35 All other systems are negative. Exam: 17:40 Constitutional: The patient appears in no acute distress, alert, awake, cp non-diaphoretic, non-toxic, well developed, well nourished. 17:40 Head/Face: Normocephalic, atraumatic. cp 17:40 Eyes: Periorbital structures: appear normal, Conjunctiva: normal, no exudate, no injection, Sclera: no appreciated abnormality, Lids and lashes: appear normal, bilaterally. 17:40 ENT: External ear(s): are unremarkable, Nose: is normal, Mouth: Lips: moist, Oral mucosa: moist, Posterior pharynx: Airway: no evidence of obstruction, patent. 17:40 Chest/axilla: Inspection: normal. 17:40 Cardiovascular: Rate: normal, Rhythm: regular, Edema: ankle edema, that is moderate, JVD: is not appreciated. 17:40 Respiratory: the patient does not display signs of respiratory distress, Respirations: normal, no use of accessory muscles, no retractions, labored breathing, is not present, Breath sounds: are clear throughout, no decreased breath sounds, no stridor, no wheezing. 17:40 Abdomen/GI: Inspection: distension, that is moderate, Bowel sounds: active, all quadrants, Palpation: soft, in all quadrants, mild abdominal tenderness, in all quadrants, rebound tenderness, is not appreciated, voluntary guarding, is not appreciated, involuntary guarding, is not appreciated. 17:40 Back: CVA tenderness, is absent. 17:40 Skin: cellulitis, is not appreciated, no rash present. 17:40 Neuro: Orientation: to person, place \\T\\ time. Mentation: is normal, Motor: moves all fours, strength is normal, Sensation: is normal. 18:17 ECG was reviewed by the Attending Physician. cp Vital Signs: 17:00 BP 139 / 85; Pulse 91; Resp 22; Temp 98.2(O); Pulse Ox 98% on R/A; Weight 77.11 kg; ld1 Height 5 ft. 4 in. (162.56 cm); Pain 0/10; 17:54 BP 118 / 81; Pulse 85; Resp 16; Pulse Ox 100% ; vg1 18:35 BP 138 / 90; Pulse 84; Resp 18; Pulse Ox 100% ; vg1 19:22 BP 103 / 80; Pulse 80; Resp 17; Pulse Ox 100% ; vg1 20:30 BP 112 / 79; Pulse 81; Resp 19; Pulse Ox 100% ; vg1 20:55 BP 106 / 71; Pulse 81; Resp 22; Pulse Ox 100% ; vg1 22:53 BP 135 / 95; Pulse 83; Resp 20; Temp 98.9(O); Pulse Ox 100% on R/A; Pain 0/10; fu 17:00 Body Mass Index 29.18 (77.11 kg, 162.56 cm) ld1 MDM: 17:28 Patient medically screened. cp 21:11 Data reviewed: vital signs, nurses notes, lab test result(s), EKG, radiologic studies, cp CT scan, plain films. Test interpretation: by ED physician or midlevel provider: ECG, plain radiologic studies. Physician consultation: Meet JADE was called at 21:11, was contacted at 21:11, regarding admission, to the telemetry unit. patient's condition, and will see patient in ED, shortly. 09/23 17:29 Order name: Basic Metabolic Panel; Complete Time: 18:47 cp 09/23 18:48 Interpretation: Normal except: CL 112; GLUC 116; GFR 57. cp 09/23 17:29 Order name: CBC with Diff; Complete Time: 21:09 cp 09/23 18:48 Interpretation: Normal except: RBC 3.29; HGB 11.0; HCT 33.5; MCV 101.7; PLT 92; MN% cp 12.5. 09/23 17:29 Order name: LFT's; Complete Time: 18:47 cp 09/23 18:48 Interpretation: Normal except: AST 87; ALK 160; BILIT 1.5; BILID 0.9; ALB 2.5; GLOB cp 4.4; A/G 0.6. 09/23 17:29 Order name: Magnesium; Complete Time: 18:47 cp 09/23 17:29 Order name: NT PRO-BNP; Complete Time: 18:47 cp 09/23 18:48 Interpretation: Abnormal: NT PRO-BNP 371. cp 09/23 17:29 Order name: PT-INR; Complete Time: 18:47 cp 09/23 17:29 Order name: US Extremity Venous W Compression Dany; Complete Time: 20:55 cp 09/23 17:29 Order name: Troponin (emerg Dept Use Only); Complete Time: 18:47 cp 09/23 17:29 Order name: XRAY Chest (1 view); Complete Time: 18:47 cp 09/23 17:29 Order name: EKG; Complete Time: 17:30 09/23 18:50 Order name: CT Abd/Pelvis - IV Contrast Only; Complete Time: 20:55 cp 09/23 20:56 Order name: CBC Smear Scan; Complete Time: 21:09 EDMS 09/23 21:19 Order name: COVID-19 (Coronavirus) Document "Date of Onset" if Symptomatic vg1 09/23 22:17 Order name: SARS-COV-2 RT PCR; Complete Time: 22:52 EDMS 09/23 22:52 Interpretation: Results reviewed. 09/23 17:29 Order name: Cardiac monitoring; Complete Time: 18:15 09/23 17:29 Order name: EKG - Nurse/Tech; Complete Time: 18:16 cp 09/23 17:29 Order name: IV Saline Lock; Complete Time: 19:19 cp 09/23 17:29 Order name: Labs collected and sent; Complete Time: 18:04 09/23 17:29 Order name: O2 Per Protocol; Complete Time: 17:43 cp 09/23 17:29 Order name: O2 Sat Monitoring; Complete Time: 17:43 cp EC:17 Rate is 83 beats/min. Rhythm is regular. SC interval is normal. QRS interval is normal. cp QT interval is normal. T waves are Inverted in lead V2. Interpreted by me. Reviewed by me. Administered Medications: No medications were administered Disposition: 09/24 19:05 Co-signature as Attending Physician, Leoncio Polanco MD I agree with the assessment and rn plan of care. Attestation: The patient's history, exam findings, diagnostics, and a summary of any interventions or procedures was reviewed in detail with Eduardo JADE. Disposition Summary: 09/23/21 21:21 Hospitalization Ordered Hospitalization Status: Observation cp Provider: Meet Flynn cp Location: Telemetry/MedSurg (observation) cp Condition: Stable cp Problem: an ongoing problem cp Symptoms: are unchanged cp Bed/Room Type: Standard cp Room Assignment: 225(09/23/21 22:18) mw Diagnosis - Other cirrhosis of liver cp - Pleural effusion in other conditions classified elsewhere cp - Dyspnea, unspecified cp Forms: - Medication Reconciliation Form cp - SBAR form cp Signatures: Dispatcher [employer] EDMS Rose Bailey RN RN mw Leoncio Polanco MD MD rn Page, Corey, PA PA cp Garcia, Victoria, RN RN vg1 Twila Resendiz RN RN ld1 Corrections: (The following items were deleted from the chart) 09/23 22:18 21:21 cp mw
--- NOTE | 2021-09-23 22:21 | P.HP ---
Certification for Inpatient Patient admitted to: Inpatient With expected LOS: <2 Midnights Patient will require the following post-hospital care: None Practitioner: I am a practitioner with admitting privileges, knowledge of patient current condition, hospital course, and medical plan of care. Services: Services provided to patient in accordance with Admission requirements found in Title 42 Section 412.3 of the Code of Federal Regulations Patient History Date of Service: 09/23/21 Reason for admission: ascites History of Present Illness: Ms. Chaudhry is a 61 yo F with hepatitis C cirrhosis (MELD score 11), bipolar disorder, HTN who presents with worsening ascites, edema and sypnea over the past month. She has had increasing swelling and pain in her abdomen. Her brother brought her in to be evaluated today. She reports cough, wheezing and leg pain. She is scheduled to see the liver team in [place] on 11/01 for further workup of a liver mass. She smokes 1/2ppd and drinks 2-3 beers a day. CTAP IMPRESSION: Interval development of large volume of ascites presumably due to portal hypertension. Cirrhotic liver morphology. Portal vein is patent. Allergies No Known Allergies Allergy (Unverified 08/02/21 19:18) Home Medications: Amlodipine Besylate 10 mg PO DAILY 08/02/21 Lisinopril [Zestril] 40 mg PO DAILY 08/02/21 [place] Carbonate [Lithotabs *] 300 mg PO BID 08/02/21 Metoprolol Tartrate [Lopressor*] 50 mg PO DAILY 08/02/21 OLANZapine [Olanzapine] 10 mg PO BEDTIME 08/02/21 Omeprazole [Prilosec] 40 mg PO DAILY 08/02/21 hydrOXYzine HCL [Atarax*] 25 mg PO BID 08/02/21 Ciprofloxacin HCl [Cipro 500 MG Tablet] 500 mg PO BID 12 Days #24 tab 08/04/21 metroNIDAZOLE [Flagyl] 500 mg PO Q8H 12 Days #36 tablet 08/04/21 - Past Medical/Surgical History -: GERD -: BPD -: Hypertension -: Hep C cirrhosis -: Psychosocial/ Personal History: Unemployed, lives with her daughter - Family History Father -: Heart disease Mother -: Heart disease - Social History Smoking Status: Current every day smoker Counseled patient to stop smoking for: less than 10 minutes Smoking therapy provided: Yes Patient receptive to therapy: Yes Alcohol use: Yes CD- Drugs: No Caffeine use: Yes Place of Residence: Home Review of Systems 10-point ROS is otherwise unremarkable General: Unremarkable Eyes: Unremarkable ENT: Unremarkable Respiratory: Cough, Shortness of Breath, SOB with Excertion, Wheezing, As per HPI Cardiovascular: Edema Gastrointestinal: Abdominal Pain, Distention, As per HPI Genitourinary: Unremarkable Musculoskeletal: Leg Pain, As per HPI Integumentary: Unremarkable Neurological: Unremarkable Lymphatics: Unremarkable Physical Examination - Physical Exam General: Alert, In no apparent distress, Cooperative HEENT: Atraumatic, PERRLA, Mucous membr. moist/pink, EOMI, Scleral icterus Neck: Supple, 2+ carotid pulse no bruit, No LAD, Without JVD or thyroid abnormality Respiratory: Normal air movement, Crackles/rales Cardiovascular: Regular rate/rhythm, Normal S1 S2, Edema Gastrointestinal: Normal bowel sounds, No tenderness, Ascites Musculoskeletal: No tenderness Integumentary: No rashes Neurological: Normal speech, Normal strength at 5/5 x4 extr, Normal tone, Normal affect Lymphatics: No axilla or inguinal lymphadenopathy - Studies Laboratory Data (last 24 hrs) 09/23/21 18:03: PT 15.1 H, INR 1.31 09/23/21 18:03: WBC 6.40, Hgb 11.0 L, Hct 33.5 L, Plt Count 92 L 09/23/21 18:03: Sodium 141, Potassium 3.5, BUN 11, Creatinine 1.00, Glucose 116 H, Magnesium 2.1, Total Bilirubin 1.5 H, AST 87 H, ALT 71, Alkaline Phosphatase 160 H Assessment and Plan - Problems (Diagnosis) (1) Hepatic cirrhosis due to chronic hepatitis C infection Current Visit: Yes Status: Chronic (2) Bipolar 1 disorder Current Visit: Yes Status: Chronic (3) HTN (hypertension) Current Visit: Yes Status: Chronic Qualifiers: Hypertension type: primary hypertension Qualified Code(s): I10 - Essential (primary) hypertension (4) Tobacco use Current Visit: Yes Status: Chronic (5) Alcohol use Current Visit: Yes Status: Chronic (6) Ascites Current Visit: Yes Status: Acute Qualifiers: Ascites type: other type Qualified Code(s): R18.8 - Other ascites - Plan US paracentesis in the AM low sodium diet, begin spironolactone hold BP medications counseled on alcohol and tobacco cessation reconcile and continue home medications SCDs Discharge Plan: Home Plan to discharge in: 48 Hours - Advance Directives Does patient have a Living Will: No Does patient have a Durable POA for Healthcare: No - Code Status/Comfort Care Code Status Assessed: Yes (full code ) Critical Care: No Time Spent Managing Pts Care (In Minutes): 70
[2021-09-23] MEDS ORDERED: ONDANSETRON 4 MG/2 ML VIAL IV PRN (23:17)
[2021-09-23] MEDS ORDERED: ALBUTEROL 2.5 MG/3 ML NEB SOL NEB PRN (23:17)
[2021-09-24 00:41] VITALS: BMI 29.0
[2021-09-24 06:19] LABS: Protime INR 1.36
[2021-09-24 06:20] LABS: Absolute Lymphocytes (CBC) 1.7 K/uL (0.7-4.9); Basophils % 0.8 % (0-1.3); Hematocrit 30.2 % (36.0-45.0); Lymphocytes % 27.5 % (15.3-44.8); MPV 9.3 fL (7.6-11.3); RBC Red Blood Cell Count 2.98 M/uL (3.86-4.86)
[2021-09-24 07:11] LABS: Albumin 2.1 g/dL (3.4-5.0); Bilirubin Total 1.3 mg/dL (0.2-1.0); Folic Acid, (Folate) 6.6 ng/mL (3.1-17.5); Magnesium 2.1 mg/dL (1.8-2.4); Phosphorus 3.2 mg/dL (2.5-4.9); Potassium 3.7 mmol/L (3.5-5.1); Protein, Total 6.1 g/dL (6.4-8.2)
[2021-09-24 07:14] LABS: Thyroid Stimulating Hormone 4.52 uIU/mL (0.360-3.740)
[2021-09-24] MEDS ORDERED: SPIRONOLACTONE 25 MG TABLET PO SCH (09:00)
--- NOTE | 2021-09-24 10:59 | RAD REPORT ---
EXAM DESCRIPTION: US - Paracentesis Proc Guidance - 09/24/2021 10:46 am CLINICAL HISTORY: ascites Ascites COMPARISON: Abdomen Pelvis W Contrast dated 09/23/2021 FINDINGS: Informed consent was obtained and time-out was performed. Patient's abdomen was prepped and draped in the usual sterile fashion. 1% lidocaine was used for loca l anesthetic purposes. A small skin incision was made. A paracentesis catheter was guided into the peroneal cavity under son ographic guidance. A small amount of fluid was sent for requested lab studies. A large volume paracentesis was performed . The patient tolerated the procedure well. IMPRESSION: Successful ultrasound-guided paracentesis.
[2021-09-24 13:06] LABS: Appearance CLEAR (CLEAR); Body Fluid Source PERITONEAL; Body Fluid WBC 63 /mm^3; Color of fluid Yellow (COLORLESS)
[2021-09-24] MEDS ORDERED: ALBUTEROL 2.5 MG/3 ML NEB SOL NEB PRN (15:00)
--- NOTE | 2021-09-24 16:04 | P.DS ---
Admission Date: 09/23/21 Discharge Date: 09/24/21 Disposition: ROUTINE DISCHARGE Discharge Condition: FAIR Reason for Admission: ascites - Problems (1) Ascites Current Visit: Yes Status: Acute Qualifiers: Ascites type: other type Qualified Code(s): R18.8 - Other ascites (2) Alcohol use Current Visit: Yes Status: Chronic (3) Bipolar 1 disorder Current Visit: Yes Status: Chronic (4) HTN (hypertension) Current Visit: Yes Status: Chronic Qualifiers: Hypertension type: primary hypertension Qualified Code(s): I10 - Essential (primary) hypertension (5) Hepatic cirrhosis due to chronic hepatitis C infection Current Visit: Yes Status: Chronic (6) Tobacco use Current Visit: Yes Status: Chronic (7) Chronic anemia Current Visit: Yes Status: Acute (8) Acquired thrombocytopenia Current Visit: Yes Status: Acute Brief History of Present Illness: 61 y/o woman with hepatitis C cirrhosis (MELD score 11), bipolar disorder, HTN presented with worsening ascites, edema and dyspnea over 1 month. She reported cough, wheezing and leg pain. She is scheduled to see the liver team in [place] on 11/01 for further workup of a liver mass. She smokes 1/2ppd and drinks 2-3 beers a day. CTAP IMPRESSION: Interval development of large volume of ascites presumably due to portal hypertension. Cirrhotic liver morphology. Portal vein is patent. Hospital Course: Patient placed under observation on the medical floor. [place].S. paracentesis was done by IR. Large volume of ascitic fluid was drained. Her blood pressure was stable after the paracenteses. Patient started on Aldactone 50 mg. She denied any pain. Ascitic fluid cell count unremarkable. Her abdominal distention has decreased significantly. Patient deemed stable for discharge. She is discharged with Lasix maintenance and Aldactone. Vital Signs/Physical Exam: Temp Pulse Resp BP Pulse Ox 97.1 F 82 18 113/56 L 98 09/24/21 12:00 09/24/21 12:00 09/24/21 12:00 09/24/21 12:00 09/24/21 12:00 General: Alert, In no apparent distress, Oriented x3 HEENT: Mucous membr. moist/pink, Sclerae nonicteric Neck: JVD not distended Respiratory: Clear to auscultation bilaterally, Normal air movement Cardiovascular: Regular rate/rhythm, Normal S1 S2, Edema (Trace bilateral lower extremity edema) Capillary refill: <2 Seconds Gastrointestinal: Normal bowel sounds, Soft and benign, No tenderness, Distended (Mildly distended) Musculoskeletal: No swelling Integumentary: No erythema Neurological: Normal strength at 5/5 x4 extr Laboratory Data at Discharge: WBC 6.10 K/uL (4.3-10.9) 09/24/21 06:06 Hgb 10.1 g/dL (12.0-15.0) L 09/24/21 06:06 Hct 30.2 % (36.0-45.0) L 09/24/21 06:06 Plt Count 83 K/uL (152-406) L 09/24/21 06:06 PT 15.7 SECONDS (9.5-12.5) H 09/24/21 06:06 INR 1.36 09/24/21 06:06 Sodium 143 mmol/L (136-145) 09/24/21 06:06 Potassium 3.7 mmol/L (3.5-5.1) 09/24/21 06:06 BUN 11 mg/dL (7-18) 09/24/21 06:06 Creatinine 0.82 mg/dL (0.55-1.3) 09/24/21 06:06 Glucose 86 mg/dL (74-106) 09/24/21 06:06 Phosphorus 3.2 mg/dL (2.5-4.9) 09/24/21 06:06 Magnesium 2.1 mg/dL (1.8-2.4) 09/24/21 06:06 Total Bilirubin 1.3 mg/dL (0.2-1.0) H 09/24/21 06:06 AST 81 U/L (15-37) H 09/24/21 06:06 ALT 63 U/L (12-78) 09/24/21 06:06 Alkaline Phosphatase 150 U/L (45-117) H 09/24/21 06:06 Triglycerides 80 mg/dL (<150) 09/24/21 06:06 Cholesterol 72 mg/dL (<200) 09/24/21 06:06 HDL Cholesterol 17 mg/dL (40-60) L 09/24/21 06:06 Cholesterol/HDL Ratio 4.24 09/24/21 06:06 Home Medications: [place] Carbonate [Lithotabs *] 300 mg PO BID 08/02/21 OLANZapine [Olanzapine] 10 mg PO BEDTIME 08/02/21 Omeprazole [Prilosec] 40 mg PO DAILY 08/02/21 hydrOXYzine HCL [Atarax*] 25 mg PO BID 08/02/21 Furosemide [Lasix] 40 mg PO DAILY #30 tab 09/24/21 Spironolactone [Aldactone*] 50 mg PO DAILY #60 tab 09/24/21 New Medications: Spironolactone [Aldactone*] 50 mg PO DAILY #60 tab Furosemide [Lasix] 40 mg PO DAILY #30 tab Diet: AHA Activity: Ad candice Followup: Johnathon Chandler FNP [Primary Care Provider] - 1 Week
[2021-09-24 17:03] VITALS: BP 127/69; TEMP 98
[2021-09-24 17:15] VITALS: O2SAT 95
--- NOTE | 2021-09-27 18:35 | EKG ---
Test Date: 2021-09-23 Test Time: 18:12:58 Administrative Assistant Front Desk: ALISHA MEASUREMENT RESULTS: Intervals: Rate: 83 OR: 144 QRSD: 80 QT: 358 QTc: 420 [place]: P: 52 OR: 144 QRS: 36 T: 46 INTERPRETIVE STATEMENTS: Normal sinus rhythm Cannot rule out Anterior infarct, age undetermined Abnormal ECG No previous ECG available for comparison Electronically Signed On 09-27-21 18:24:45 STOCK PREPARER by Enmanuel Leblanc
--- OUTSIDE RECORDS SUMMARY | 2021-10-02 11:43 | XMS REPORT | Continuity of Care Document ---
:1960 Author Organization [facility] t Address [address] [place] [address] Care Team Providers Name Role Phone Shankar MEYER Attending Clinician Unavailable Payers Payer Name Policy Type Policy Number Effective Date Expiration Date S tamiko [facility] [id number] 2018 00:00:00 PLAN Problems This patient has no known problems. Allergies, Adverse Reactions, Alerts Allergy Allergy Status Severity Reaction(s) Onset Inactive Treating Comm ents Source Name Type Date Date Clinician NO KNOWN Allergy Active [facility] Medications This patient has no known medications. Vital Signs Vital Name Observation Time Observation Value Comments Source HEIGHT 2021-04-16 09:45:00 162.6 cm WEIGHT 2021-04-16 09:45:00 76.839 kg HEIGHT 2021-04-16 09:45:00 162.6 cm WEIGHT 2021-04-16 09:45:00 76.839 kg Procedures This patient has no known procedures. Encounters Start End Encounter Admission Attending Care Care Encounter Source Date/Time Date/Time Type Type Clinicians Facility Department ID 2021-08-10 2021-08-10 [facility] [id number] [facility] 00:00:00 00:00:00 2021-08-02 2021-08-02 Outpatient KASEY BETSYERICCARL OREILLY [facility] [id number] [facility] 00:00:00 00:00:00 2021-06-15 2021-06-15 Outpatient VAISHNAVI SANCHES [facility] [id number] [facility] 00:00:00 00:00:00 2021-04-16 2021-04-16 Outpatient KASEY BETSYVAISHNAVI AFIA [facility] [id number] [facility] 00:00:00 00:00:00 Results Test Description Test Time Test Comments Results Result Comments Source MISCELLANEOUS LAB ORDER 2021-04-23 10:27:00 Test Item Value Reference Range Interpretation Comme nts SCAN RESULT (test code = 8562518) See scanned [id number] 14:57:00 Test Item Value Reference Range Interpretation Comments FERRITIN (BEAKER) (test code = 425.05 ng/mL 5.00-275.00 H 361) [employer] Operator ID - JAVI CALPHA FETOPROTEIN (AFP), TUMOR [id number] 14:16:00 Test Item Value Reference Range Interpretation Comments ALPHA-FETOPROTEIN (BEAKER) (test 38.9 ng/mL <10.0 H code = 1094) [employer] Operator ID - MARJ MHEPATITIS B CORE ANTIBODY, [id number] 14:16:00 Test Item Value Reference Range Interpretation Comments HEPATITIS B CORE TOTAL ANTIBODY Nonreactive Nonreactive (BEAKER) (test code = 497) [employer] Operator ID - MARJ ADÁN, TIBC, % SAT. (WITHOUT FERRITIN)2021-04-16 13:52:00 Test Item Value Reference Range Interpretation Comments IRON (BEAKER) (test code = 547) 136.0 ug/dL 40.0-160.0 TOTAL IRON BINDING CAPACITY 325 ug/dL 250-450 (BEAKER) (test code = 769) IRON % SATURATION (2) (BEAKER) 42 % 20-55 (test code = 2590) [employer] Operator ID - MARJ MCOMPREHENSIVE METABOLIC [id number] 13:50:00 Test Item Value Reference Range Interpretation [...] S NOT APPLICABLE FOR DIALYSIS PATIEN TS. [employer] Operator ID - MARJ MBILIRUBIN, [id number] 13:50:00 Test Item Value Reference Range Interpretation Comments BILIRUBIN DIRECT (BEAKER) (test 1.1 mg/dL 0.1-0.5 H code = 706) [employer] Operator ID - MARJ MPROTHROMBIN [id number] 13:30:00 Test Item Value Reference Range Interpretation Comments PROTIME (BEAKER) 14.9 seconds 11.9-14.2 H (test code = 759) INR (BEAKER) (test 1.20 See_Comment [Automat ed message] code = 370) The system [employer] generated this result transmitted ref erence range: [...] % 0-1 PERCENT (BEAKER) (test code = 2281)
== END 2021-09-24 17:16 | disposition home or self-care (01) ==
LOC: ER 16:40 → INTOOBSV 21:32 → ERHOLD 21:32 → 2ND 23:09
PROVIDERS: ADMIT Internal Medicine; ATTEND Internal Medicine
PROC: 0W9G3ZZ Drainage of Peritoneal Cavity, Percutaneous Approach (ICD-10-PCS; principal; 2021-09-24)
PROC: BW40ZZZ Ultrasonography of Abdomen (ICD-10-PCS; 2021-09-24)
DX: B19.20 Unspecified viral hepatitis C without hepatic coma (principal); K74.60 Unspecified cirrhosis of liver; R18.8 Other ascites; F31.9 Bipolar disorder, unspecified; I10 Essential (primary) hypertension; K21.9 Gastro-esophageal reflux disease without esophagitis; F17.200 Nicotine dependence, unspecified, uncomplicated; D64.9 Anemia, unspecified; D69.6 Thrombocytopenia, unspecified; Z20.822 Contact with and (suspected) exposure to COVID-19
CPT/HCPCS: 93005; 85025 ×2; 80048; 36415; 89050; 83735 ×2; 83615; 84100; 84157; 85610 ×2; 80061; 80076; 84443; 84484; 84439; 82746; 82607; 80053; 82042; 83880; 74177; 71045; 93970; 49083 ×2; 94760 ×3; 99285; U0003; Q9967; G0378 ×3

== ENCOUNTER 2022-12-27 12:40 | Inpatient (IN) | payer OTHER ==
--- OUTSIDE RECORDS SUMMARY | 2022-12-27 12:48 | XMS REPORT | Continuity of Care Document ---
:1960 Author Organization [facility] t Address [address] [place] [address] Care Team Providers Name Role Phone Abhinav MCGRATH,, Opal Primary Care Physician [phone] Jef ANGELA, Sri Attending Clinician Unavailable Mechelle SAMSON, Kayli Rubin Attending Clinician Unavailable VAISHNAVI MEYER Attending Clinician Unavailable Payers Payer Name Policy Type Policy Number Effective Date Expiration Date S ource Problems Condition Condition Condition Status Onset Resolution Last Treating Co mments Source Name Details Category Date Date Treatment Clinician Date Cirrhosis Cirrhosis Disease Active Overview: [facility] St 5-28 [facility] 00:00: g of this Medical note Center might be different from the original. Cirrhosis confirmed by imaging CT February, w/ nodular liver contour and sequela of portal hypertens ion (see discussio n). Etiology suspected - HCV. Last Assessmen t & Plan: Formattin g of this note might be different from the original. Cirrhosis confirmed by imaging CT February, w/ nodular liver contour and sequela of portal hypertens ion (see discussio n). Comprehen sive testing is available for review today, suspected etiology of cirrhosis is hepatitis C. In the absence of prior liver tests available to review at initial visit, we are unable to comment to current synthetic function of her liver. She denies episode of decompens ation or hospitali zations and none noted on exam today. Counseled today in pathology of cirrhosis and complicat ions of liver disease requiring emergent evaluatio n as well as guideline s for optimizin g care in patients with cirrhosis . We will update MELD labs today. She appears early for a discussio n of transplan t. Portal Portal Disease Active Overview: [facility] hypert[facility] hypertensi 04-16 [facility] on on 00:00: g of this Medical 00 note Center might be different from the original. CT February, reporting splenomeg wilda and MPV 1.7 cm Last Assessmen t & Plan: Formattin g of this note might be different from the original. Evidenced by CT February, reporting splenomeg wilda, MPV 1.7 cm. Cirrhosis represent s a potential risk for gastroeso phageal varices and/or portal hypertens lillie gastropat hy. Both increase the risk of UGI bleeding. She denies prior hematemes is or varices noted to recent EGD by Dr. Michaels, the official report is unavailab le at visit today for review. If moderate to large varices are found, we would recommend considera tion of serial band ligation to obliterat e large varices and beta blockade with either propranol ol or nadalol at a dose sufficien t to reduce the resting heart rate by 25%. Both are proven to prevent variceal bleeding. We will request report. Counseled and literatur e provided to low sodium diet (< 2GM). Encounter Encounter Disease Active Last [facility]: t & Plan: M edical for other for other 00 [facility] C enter viral viral g of this diseases diseases note might be different from the original. Serologic al tests previousl y completed to determine the presence of immunity to hepatitis A and B. CDC recommend s that all patients with chronic liver disease, regardles s of etiology, should be immunized to prevent hepatitis A and hepatitis B if they are not already immune. This should be done in addition to other age-appro priate vaccines. She should obtain both vaccinati ons with her PCP or local pharmacy. Hepatitis Hepatitis Disease Active Last [facility] 00:[facility]: t & Plan: Medical 00 [facility] g of this note might be different from the original. Pt reports diagnosed 2007. Suspected due to personal history of IV drug use (cocaine) in the . She reports two brothers with liver disease: one was also diagnosed with Hepatitis C and treated in 2016. The other passed from cirrhosis at the age of 53 suspected secondary to ETOH, but she is unsure of if HCV was ruled out. She has not previousl y pursued treatment as her insurance did not cover at the time. HCV viral load 04/02/21 1,010,000 IU/mL, genotype unknown. We will defer treatment due to evaluatio n of new liver mass. Genotype was ordered in anticipat ion of treatment at some time in the future. Liver mass Liver mass Disease Active Last [facility] 04[facility] 00:00: t & Plan: Medical 00 [facility] g of this note might be different from the original. CT scan February, reporting 1.3 cm enhancing lesion in the right segment of the liver - posterior ly at the dome. Equivocal finding on repeat MRI in Mar, 2021 notes T2 enhanceme nt with no visualiza tion on delayed sequences no mention of capsule. Cirrhosis , regardles s of etiology, is a risk factor for developme nt of hepatocel lular carcinoma . Correlati onally, alpha fetoprote in tumor marker elevated to 19.5 on 04/02/21. We will submit the outside imaging for review at radiology review conferenc e. Further recommend ations to come. Esophageal Esophageal Disease Active [facility] varices varices 04-16 [facility] 00:00: Medical 00 Center Allergies, Adverse Reactions, Alerts Allergy Allergy Status Severity Reaction(s) Onset Inactive Treating Comm ents Source Name Type Date Date Clinician NO KNOWN Allergy Active [facility] Family History Family Member Diagnosis Comments Start Date Stop Date Source Natural brother Liver disease [facility] Natural father Cancer [facility] Natural mother Aneurysm [facility] Paternal aunt Cancer [facility] Social History Social Habit Start Date Stop Date Quantity Comments Source History SDOH [facility] Alcohol Frequency Medical Center History SDOH [facility] Alcohol Std Drinks [facility] Center History SDOH [facility] Alcohol Binge Medical [facility] [facility] Alcohol Comment 2021-04-16 2021-04-16 Beer - one daily [facility] 00:00:00 00:00:00 [facility] Tobacco use and 2021-04-16 2021-04-16 Current user [facility] exposure 00:00:00 00:00:00 [facility] Alcohol intake 2021-04-16 2021-04-16 Current drinker LYNN Santiago 00:00:00 00:00:00 of alcohol Medical Center (finding) Sex Assigned At [birth year] [facility] Lila martínez 00:00:00 00:00:00 Medical Center Smoking Status Start Date Stop Date Source Current every day smoker 2021-04-16 00:00:00 [facility] Medications Ordered Filled Start Stop Current Ordering Indication Dosage Frequency Signature Comments Components Source Medication Medication Date Date Medication? Clinician (SIG) Name Name TAKE 1 2-0 No 40 CAPSULE BY 8-16 MOUTH EVERY 00:00: DAY 00 TAKE 1 2022-0 No 40 CAPSULE BY 8-16 MOUTH EVERY 00:00: DAY 00 TAKE 1 2-0 No 40 CAPSULE BY 8-16 MOUTH EVERY 00:00: DAY 00 lisinopril 2-0 No 1mg 40 mg 7-20 tablet 00:00: 00 &lt 2022-0 No 10 7-20 00:00: 00 &lt 2022-0 No 40 7-18 00:00: 00 TAKE 1 2-0 No 40 TABLET BY 7-18 MOUTH EVERY 00:00: DAY 00 TAKE 1 2-0 No 500 TABLET BY 7-18 MOUTH TWICE 00:00: A DAY 00 Lasix 40 mg 2-0 No 1mg tablet 7-12 00:00: 00 TAKE 1 2-0 No 50 TABLET BY 7-12 MOUTH EVERY 00:00: DAY 00 &lt 2022-0 No 10 7-12 00:00: 00 TAKE 1 2022-0 No TABLET BY 6-03 MOUTH EVERY 00:00: DAY FOR 00 BLOOD PRESSURE TAKE 1 2022-0 No TABLET BY 6-03 MOUTH EVERY 00:00: DAY 00 TAKE 1 2022-0 No TABLET BY 6-03 MOUTH EVERY 00:00: DAY 00 TAKE 1 2022-0 No TABLET BY 6-03 MOUTH EVERY 00:00: DAY FOR 00 BLOOD PRESSURE TAKE 1 2022-0 No TABLET BY 6-03 MOUTH TWICE 00:00: A DAY 00 TAKE 1 2022-0 No TABLET BY 6-03 MOUTH TWICE 00:00: A DAY 00 TAKE 1 2022-0 No CAPSULE BY 6-03 MOUTH TWICE 00:00: A DAY 00 TAKE 1 2022-0 No CAPSULE BY 6-03 MOUTH TWICE 00:00: A DAY 00 Dose 2022-0 No Unknown 4-11 00:00: 00 Dose 2022-0 No Unknown 4-11 00:00: 00 Dose 2022-0 No Unknown 4-11 00:00: 00 Dose 2022-0 No Unknown 4-11 00:00: 00 Dose 2022-0 No Unknown 4-11 00:00: 00 Dose 2022-0 No Unknown 4-11 00:00: 00 Dose 2022-0 No Unknown 4-11 00:00: 00 Dose 2022-0 No Unknown 4-11 00:00: 00 Dose 2022-0 No Unknown 4-11 00:00: 00 Dose 2022-0 No Unknown 4-11 00:00: 00 Dose 2022-0 No Unknown 4-11 00:00: 00 Dose 2022-0 No Unknown 4-11 00:00: 00 Dose 2022-0 No Unknown 4-11 00:00: 00 Dose 2022-0 No Unknown 4-11 00:00: 00 Dose 2022-0 No Unknown 4-11 00:00: 00 Dose 2022-0 No Unknown 4-11 00:00: 00 Dose 2022-0 No Unknown 4-11 00:00: 00 Dose 2022-0 No Unknown 4-11 00:00: 00 Dose 2022-0 No Unknown 4-11 00:00: 00 Dose 2022-0 No Unknown 4-11 00:00: 00 Dose 2022-0 No Unknown 4-11 00:00: 00 Dose 2022-0 No Unknown 4-11 00:00: 00 Dose 2022-0 No Unknown 4-11 00:00: 00 Dose 2022-0 No Unknown 4-11 00:00: 00 Dose 2022-0 No Unknown 4-11 00:00: 00 Dose 2022-0 No Unknown 4-11 00:00: 00 Dose 2022-0 No Unknown 4-11 00:00: 00 Dose 2022-0 No Unknown 4-11 00:00: 00 Dose 2022-0 No Unknown 4-11 00:00: 00 Dose 2022-0 No Unknown 4-11 00:00: 00 Dose 2022-0 No Unknown 4-11 00:00: 00 Dose 2022-0 No Unknown 4-11 00:00: 00 Dose 2022-0 No Unknown 4-11 00:00: 00 Dose 2022-0 No Unknown 4-11 00:00: 00 Dose 2022-0 No Unknown 4-11 00:00: 00 Dose 2022-0 No Unknown 4-11 00:00: 00 Dose 2022-0 No Unknown 4-11 00:00: 00 Dose 2022-0 No Unknown 4-11 00:00: 00 Dose 2022-0 No Unknown 4-11 00:00: 00 Dose 2022-0 No Unknown 4-11 00:00: 00 Dose 2022-0 No Unknown 4-11 00:00: 00 Dose 2022-0 No Unknown 4-11 00:00: 00 Dose 2022-0 No Unknown 4-11 00:00: 00 Dose 2022-0 No Unknown 4-11 00:00: 00 Dose 2022-0 No Unknown 4-11 00:00: 00 Dose 2022-0 No Unknown 4-11 00:00: 00 Dose 2022-0 No Unknown 4-11 00:00: 00 Dose 2022-0 No Unknown 4-11 00:00: 00 Lasix 40 mg 2-0 No 1mg tablet 4-11 00:00: 00 lisinopril 2-0 No 1mg 40 mg 4-11 tablet 00:00: 00 metoprolol 2022-0 No 1mg tartrate 50 4-11 mg tablet 00:00: 00 Dose 2022-0 No Unknown 4-11 00:00: 00 Dose 2022-0 No Unknown 4-11 00:00: 00 Dose 2022-0 No Unknown 4-11 00:00: 00 Dose 2022-0 No Unknown 4-11 00:00: 00 Dose 2022-0 No Unknown 4-11 00:00: 00 Dose 2022-0 No Unknown 4-11 00:00: 00 Dose 2022-0 No Unknown 4-11 00:00: 00 Dose 2022-0 No Unknown 4-11 00:00: 00 Dose 2022-0 No Unknown 4-11 00:00: 00 Dose 2022-0 No Unknown 4-11 00:00: 00 Dose 2022-0 No Unknown 4-11 00:00: 00 Dose 2022-0 No Unknown 4-11 00:00: 00 Dose 2022-0 No Unknown 4-11 00:00: 00 Dose 2022-0 No Unknown 4-11 00:00: 00 Dose 2022-0 No Unknown 4-11 00:00: 00 Dose 2022-0 No Unknown 4-11 00:00: 00 Dose 2022-0 No Unknown 4-11 00:00: 00 Dose 2022-0 No Unknown 4-11 00:00: 00 Dose 2022-0 No Unknown 4-11 00:00: 00 Dose 2022-0 No Unknown 4-11 00:00: 00 Dose 2022-0 No Unknown 4-11 00:00: 00 Dose 2-0 No Unknown 4-11 00:00: 00 Dose 2022-0 No Unknown 4-11 00:00: 00 Dose 2022-0 No Unknown 4-11 00:00: 00 Dose 2-0 No Unknown 4-11 00:00: 00 Dose 2-0 No Unknown 4-11 00:00: 00 Dose 2-0 No Unknown 4-11 00:00: 00 Dose 2022-0 No Unknown 4-11 00:00: 00 Dose 2-0 No Unknown 1-10 00:00: 00 Dose 2020-1 No Unknown 1-29 00:00: 00 Dose 2020-1 No Unknown 1-29 00:00: 00 Xifaxan 550 1-1 No 1mg mg tablet 1-11 00:00: 00 Dose 1-0 No Unknown 6-28 00:00: 00 Dose 1-0 No Unknown 6-28 00:00: 00 lisinopril 2020-0 No 1mg 40 mg 6-28 tablet 00:00: 00 OLANZapine 2020-[address] [facility] (ZYPREXA[facility] 5-24 [facility] 10 MG 00:00: Medical tablet 00 Center OLANZapine 2020-[address] [facility] (ZYPREXA) 5-24 [facility] 10 MG 00:00: Medical tablet 00 Center OLANZapine 2020-[address] [facility] (ZYPREXA) 5-24 [facility] 10 MG 00:00: Medical tablet 00 Center OLANZapine 2020-[address] [facility] (ZYPREXA) 5-24 [facility] 10 MG 00:00: Medical tablet 00 [place] omeprazole 2020-[address] (PriLOSEC) 5-21 [facility] 40 MG 00:00: Medical capsule 00 [place] amLODIPine 2020-0 Yes 10mg QD Take [address] (NORVASC) 5-21 by mouth [facility] 10 MG 00:00: daily. Medical tablet 00 [place] omeprazole 2020-[address] [facility] (PriLOSEC) 5-21 [facility] 40 MG 00:00: Medical capsule 00 [place] amLODIPine 2020-0 Yes 10mg QD Take [address] (NORVASC) 5-21 by mouth [facility] 10 MG 00:00: daily. Medical tablet 00 [place] omeprazole 2020-[address] (PriLOSEC) 5-21 [facility] 40 MG 00:00: Medical capsule 00 [place] amLODIPine 2020-0 Yes 10mg QD Take [address] (NORVASC) 5-21 by mouth [facility] 10 MG 00:00: daily. Medical tablet 00 [place] omeprazole 2020-[address] (PriLOSEC) 5-21 [facility] 40 MG 00:00: Medical capsule 00 [place] amLODIPine 2020-0 Yes 10mg QD Take [address] (NORVASC) 5-21 by mouth [facility] 10 MG 00:00: daily. Medical tablet 00 [place] lithium 300 2020-0 Yes 300mg Q.5D Take [address] MG capsule 4-29 mg by [facility] 00:00: mouth 2 Medical 00 (two) Center times daily. lithium 300 2020-0 Yes 300mg Q.5D Take [address] MG capsule 4-29 mg by [facility] 00:00: mouth 2 Medical 00 (two) Center times daily. lithium 300 2020-0 Yes 300mg Q.5D Take [address] MG capsule 4-29 mg by [facility] 00:00: mouth 2 Medical 00 (two) Center times daily. lithium 300 2020-0 Yes 300mg Q.5D Take [address] MG capsule 4-29 mg by [facility] 00:00: mouth 2 Medical 00 (two) Center times daily. lisinopriL 2020-0 Yes 40mg QD Take [address] (PRINIVIL,Z 4-18 by mouth [facility] ESTRIL) 40 00:00: daily. Medic al MG tablet [address] [place] [address] lisinopriL 2020-0 Yes 40mg QD Take [address] (PRINIVIL,Z 4-18 by mouth [facility] ESTRIL) 40 00:00: daily. Medic al MG tablet [address] [place] [address] lisinopriL 2020-0 Yes 40mg QD Take [address] (PRINIVIL,Z 4-18 by mouth [facility] ESTRIL) 40 00:00: daily. Medic al MG tablet 00 Center lisinopriL 2020-0 Yes 40mg QD Take [address] (PRINIVIL,Z 4-18 by mouth [facility] ESTRIL) 40 00:00: daily. Medic al MG tablet 00 Center metoprolol 2020-0 Yes 50mg QD Take [address] tartrate 4-03 by mouth [facility] (LOPRESSOR) 00:00: daily. Medi [place] 50 MG 00 Center tablet metoprolol 2020-0 Yes 50mg QD Take [address] tartrate 4-03 by mouth [facility] (LOPRESSOR) 00:00: daily. Medi [place] 50 MG 00 Center tablet metoprolol 2020-0 Yes 50mg QD Take [address] tartrate 4-03 by mouth [facility] (LOPRESSOR) 00:00: daily. Medi [place] 50 MG 00 Center tablet metoprolol 2020-0 Yes 50mg QD Take [address] tartrate 4-03 by mouth [facility] (LOPRESSOR) 00:00: daily. Medi [place] 50 MG 00 Center tablet amlodipine 0 No 1mg 10 mg 3-17 tablet 00:00: 00 metoprolol 2020-0 No 1mg tartrate 50 3-17 mg tablet 00:00: 00 lisinopril 2020-0 No 1mg 40 mg 1-28 tablet 00:00: 00 amlodipine 2019-1 No 1mg 10 mg 1-18 tablet 00:00: 00 metoprolol 2019-1 No 1mg tartrate 50 1-18 mg tablet 00:00: 00 lisinopril 2019-1 No 1mg 40 mg 1-18 tablet 00:00: 00 lisinopril 2020-1 No 1mg 40 mg 1-18 tablet 00:00: 00 metoprolol 2020-1 No 1mg tartrate 50 1-18 mg tablet 00:00: 00 amlodipine 2020-1 No 1mg 10 mg 1-18 tablet 00:00: 00 amlodipine 2020-0 No 1mg 10 mg 9-09 tablet 00:00: 00 metoprolol 2020-0 No 1mg tartrate 50 9-09 mg tablet 00:00: 00 lisinopril 2019-0 No 1mg 40 mg 7-21 tablet 00:00: 00 metoprolol 2020-0 No 1mg tartrate 50 5-26 mg tablet 00:00: 00 amlodipine 2020-0 No 1mg 10 mg 5-26 tablet 00:00: 00 lisinopril 2020-0 No 1mg 40 mg 4-20 tablet 00:00: 00 amlodipine 2019-1 No 1mg 10 mg 0-22 tablet 00:00: 00 metoprolol 2019-1 No 1mg tartrate 50 0-22 mg tablet 00:00: 00 lisinopril 2019-1 No 1mg 40 mg 0-22 tablet 00:00: 00 lisinopril 2019-0 No 1mg 40 mg 9-30 tablet 00:00: 00 amlodipine 2019-0 No 1mg 10 mg 9-30 tablet 00:00: 00 metoprolol 2019-0 No 1mg tartrate 50 9-30 mg tablet 00:00: 00 metronidazo 2019-0 No 1mg le 500 mg 2-21 tablet 00:00: 00 lisinopril 2019-0 No 1mg 40 mg 2-05 tablet 00:00: 00 amlodipine 2019-0 No 1mg 10 mg 2-05 tablet 00:00: 00 metoprolol 2019-0 No 1mg tartrate 50 2-05 mg tablet 00:00: 00 lisinopril 2018-1 No 1mg 40 mg 1-06 tablet 00:00: 00 amlodipine 2018-1 No 1mg 10 mg 1-06 tablet 00:00: 00 metoprolol 2018-1 No 1mg tartrate 50 1-06 mg tablet 00:00: 00 lisinopril 2018-1 No 1mg 40 mg 0-23 tablet 00:00: 00 amlodipine 2018-1 No 1mg 10 mg 0-23 tablet 00:00: 00 lisinopril 2018-0 No 1mg 40 mg 9-25 tablet 00:00: 00 metoprolol 2018-0 No 1mg tartrate 9-25 100 mg 00:00: tablet 00 metoprolol 2018-0 No 5mg tartrate 9-25 100 mg 00:00: tablet 00 lisinopril 2018-0 No 1mg 40 mg 6-22 tablet 00:00: 00 metoprolol 2018-0 No 1mg tartrate 50 6-22 mg tablet 00:00: 00 lisinopril 2018-0 No 1mg 40 mg 1-23 tablet 00:00: 00 metoprolol 2018-0 No 1mg tartrate 50 1-23 mg tablet 00:00: 00 lisinopril 2017-1 No 1mg 40 mg 2-06 tablet 00:00: 00 metoprolol 2017-1 No 1mg tartrate 50 2-06 mg tablet 00:00: 00 lisinopril 2017-0 No 1mg 40 mg 8-05 tablet 00:00: 00 metoprolol 2017-0 No 1mg tartrate 50 8-05 mg tablet 00:00: 00 metoprolol 2017-0 No 1mg tartrate 50 1-27 mg tablet 00:00: 00 lisinopril 2017-0 No 1mg 20 1-27 mg-hydrochl 00:00: orothiazide 00 12.5 mg tablet simvastatin 2017-0 No 1mg 20 mg 1-27 tablet 00:00: 00 metoprolol 2016-1 No 1mg tartrate 50 0-21 mg tablet 00:00: 00 lisinopril 2016-1 No 1mg 20 0-21 mg-hydrochl 00:00: orothiazide 00 12.5 mg tablet simvastatin 2016-1 No 1mg 20 mg 0-21 tablet 00:00: 00 metoprolol 2016-0 No 1mg tartrate 50 6-03 mg tablet 00:00: 00 lisinopril 2016-0 No 1mg 20 6-03 mg-hydrochl 00:00: orothiazide 00 12.5 mg tablet simvastatin 2016-0 No 1mg 20 mg 6-03 tablet 00:00: 00 lisinopril 2016-0 No 1mg 20 2-16 mg-hydrochl 00:00: orothiazide 00 12.5 mg tablet simvastatin 2016-0 No 1mg 20 mg 2-16 tablet 00:00: 00 metoprolol 2016-0 No 1mg tartrate 50 2-16 mg tablet 00:00: 00 metoprolol 2015-0 No 1mg tartrate 50 4-01 mg tablet 00:00: 00 lisinopril 2015-0 No 1mg 20 4-01 mg-hydrochl 00:00: orothiazide 00 12.5 mg tablet Depakote ER 2015-0 No 2mg 500 mg 4-01 tablet,exte 00:00: nded 00 release hydroxyzine 2014-0 No 1mg pamoate 25 4-01 mg capsule 00:00: 00 metoprolol 2013-0 No 1mg tartrate 50 9-02 mg tablet 00:00: 00 lisinopril 2014-0 No 1mg 20 9-02 mg-hydrochl 00:00: orothiazide 00 12.5 mg tablet Vital Signs Vital Name Observation Time Observation Value Comments Source HEIGHT 2021-04-16 09:45:00 162.6 cm WEIGHT 2021-04-16 09:45:00 76.839 kg HEIGHT 2021-04-16 09:45:00 162.6 cm WEIGHT 2021-04-16 09:45:00 76.839 kg BP Systolic 2022-07-29 10:45:00 162 mm[Hg] BP Diastolic 2022-07-29 10:45:00 88 mm[Hg] Weight Measured 2022-07-29 10:45:00 161.40 pounds Height Measured 2022-07-29 10:45:00 64.00 inches Body Temperature 2022-07-29 10:45:00 98.30 degrees Heart Rate 2022-07-29 10:45:00 92.00 /min Respiratory Rate 2022-07-29 10:45:00 17.00 /min BP Systolic 2022-04-22 10:42:00 103 mm[Hg] BP Diastolic 2022-04-22 10:42:00 68 mm[Hg] Weight Measured 2022-04-22 10:42:00 157.60 pounds Height Measured 2022-04-22 10:42:00 64.00 inches Body Temperature 2022-04-22 10:42:00 98.10 degrees Heart Rate 2022-04-22 10:42:00 54.00 /min Respiratory Rate 2022-04-22 10:42:00 18.00 /min BP Systolic 2022-03-17 10:43:00 119 mm[Hg] BP Diastolic 2022-03-17 10:43:00 72 mm[Hg] Weight Measured 2022-03-17 10:43:00 158.40 pounds Height Measured 2022-03-17 10:43:00 64.00 inches Body Temperature 2022-03-17 10:43:00 98.10 degrees Heart Rate 2022-03-17 10:43:00 75.00 /min Respiratory Rate 2022-03-17 10:43:00 BP Systolic 2022-02-28 13:38:00 160 mm[Hg] BP Diastolic 2022-02-28 13:38:00 87 mm[Hg] Weight Measured 2022-02-28 13:38:00 160.80 pounds Height Measured 2022-02-28 13:38:00 64.00 inches Body Temperature 2022-02-28 13:38:00 98.40 degrees Heart Rate 2022-02-28 13:38:00 97.00 /min Respiratory Rate 2022-02-28 13:38:00 BP Systolic 2021-11-29 09:41:00 BP Diastolic 2021-11-29 09:41:00 Weight Measured 2021-11-29 09:41:00 150.40 pounds Height Measured 2021-11-29 09:41:00 64.00 inches Body Temperature 2021-11-29 09:41:00 98.30 degrees Heart Rate 2021-11-29 09:41:00 67.00 /min Respiratory Rate 2021-11-29 09:41:00 16.00 /min BP Systolic 2021-10-18 13:37:00 123 mm[Hg] BP Diastolic 2021-10-18 13:37:00 71 mm[Hg] Weight Measured 2021-10-18 13:37:00 156.00 pounds Height Measured 2021-10-18 13:37:00 64.00 inches Body Temperature 2021-10-18 13:37:00 98.20 degrees Heart Rate 2021-10-18 13:37:00 77.00 /min Respiratory Rate 2021-10-18 13:37:00 BP Systolic 2021-09-30 14:22:00 136 mm[Hg] BP Diastolic 2021-09-30 14:22:00 87 mm[Hg] Weight Measured 2021-09-30 14:22:00 177.60 pounds Height Measured 2021-09-30 14:22:00 64.00 inches Body Temperature 2021-09-30 14:22:00 98.10 degrees Heart Rate 2021-09-30 14:22:00 100.00 /min Respiratory Rate 2021-09-30 14:22:00 18.00 /min BP Systolic 2021-05-31 09:26:00 132 mm[Hg] BP Diastolic 2021-05-31 09:26:00 80 mm[Hg] Weight Measured 2021-05-31 09:26:00 172.40 pounds Height Measured 2021-05-31 09:26:00 64.00 inches Body Temperature 2021-05-31 09:26:00 97.70 degrees Heart Rate 2021-05-31 09:26:00 69.00 /min Respiratory Rate 2021-05-31 09:26:00 16.00 /min BP Systolic 2021-05-17 10:47:00 126 mm[Hg] BP Diastolic 2021-05-17 10:47:00 76 mm[Hg] Weight Measured 2021-05-17 10:47:00 168.20 pounds Height Measured 2021-05-17 10:47:00 64.00 inches Body Temperature 2021-05-17 10:47:00 98.40 degrees Heart Rate 2021-05-17 10:47:00 57.00 /min Respiratory Rate 2021-05-17 10:47:00 17.00 /min BP Systolic 2020-10-07 14:35:00 135 mm[Hg] BP Diastolic 2020-10-07 14:35:00 88 mm[Hg] Weight Measured 2020-10-07 14:35:00 163.80 pounds Height Measured 2020-10-07 14:35:00 64.00 inches Body Temperature 2020-10-07 14:35:00 98.60 degrees Heart Rate 2020-10-07 14:35:00 81.00 /min Respiratory Rate 2020-10-07 14:35:00 16.00 /min Procedures This patient has no known procedures. Plan of Care Planned Activity Planned Date Details Comments Source Future Scheduled 2022-11-[address] [facility] 00:00:00 (12+) [code = Medical Center DEPRESSION SCREENING (12+)] Future Scheduled 2022-07-21 INFLUENZA VACCINE (#1) [facility] 00:00:00 [code = INFLUENZA Medical Ce nter VACCINE (#1)] Future Scheduled 2022-07-21 INFLUENZA VACCINE (#1) [facility] 00:00:00 [code = INFLUENZA Medical Ce nter VACCINE (#1)] Future Scheduled 2022-07-21 INFLUENZA VACCINE (#1) [facility] 00:00:00 [code = INFLUENZA Medical Ce nter VACCINE (#1)] Future Scheduled 2022-07-21 INFLUENZA VACCINE (#1) [facility] 00:00:00 [code = INFLUENZA Medical Ce nter VACCINE (#1)] Future Scheduled 2022-04-[address] [facility] 00:00:00 Counseling and Medical Cente r Screening (12+) [code = Tobacco Cessation Counseling and Screening (12+)] Future Scheduled 2022-04-[address] [facility] 00:00:00 [facility]ing and Medical Cente r Screening (12+) [code = Tobacco Cessation Counseling and Screening (12+)] Future Scheduled 2021-11-[address] [facility] 00:00:00 (12+) [code = Medical Center DEPRESSION SCREENING (12+)] Future Scheduled 2021-11-[address] [facility] 00:00:00 (12+) [code = Medical Center DEPRESSION SCREENING (12+)] Future Scheduled 2021-11-[address] [facility] 00:00:00 (12+) [code = Medical Center DEPRESSION SCREENING (12+)] Future Scheduled 2012 SHINGLES VACCINES ([address] [facility] 00:00:00 2) [code = SHINGLES [facility] VACCINES (1 of 2)] Future Scheduled 2012 SHINGLES VACCINES ([address] [facility] 00:00:00 2) [code = SHINGLES Medical Center VACCINES (1 of 2)] Future Scheduled 2012 SHINGLES VACCINES ([address] [facility] Test 00:00:00 2) [code = SHINGLES Medical Center VACCINES (1 of 2)] Future Scheduled 2012 SHINGLES VACCINES ([address] [facility] 00:00:00 2) [code = SHINGLES [facility] VACCINES (1 of 2)] Future Scheduled 2007 Lipid panel (procedure) [facility] 00:00:00 [code = 64999625] Medical Ce nter Future Scheduled 2007 Lipid panel (procedure) [facility] 00:00:00 [code = [id number]] Medical Ce nter Future Scheduled 2007 Lipid panel (procedure) [facility] 00:00:00 [code = [id number]] Medical Ce nter Future Scheduled 2007 Lipid panel (procedure) [facility] 00:00:00 [code = [id number]] Medical Ce nter Future Scheduled 1983 Screening for malignant [facility] 00:00:00 neoplasm of cervix Medical C enter (procedure) [code = 556300342] Future Scheduled 1983 Screening for malignant [facility] 00:00:00 neoplasm of cervix Medical C enter (procedure) [code = 625231071] Future Scheduled 1983 Screening for malignant [facility] Test 00:00:00 neoplasm of cervix Medical C enter (procedure) [code = 614134097] Future Scheduled 1983 Screening for malignant [facility] 00:00:00 neoplasm of cervix Medical C enter (procedure) [code = 407018142] Future Scheduled 1981 DTAP/TDAP/TD VACCINES [facility] 00:00:00 (1 - Tdap) [code = Medical C enter DTAP/TDAP/TD VACCINES (1 - Tdap)] Future Scheduled 1981 DTAP/TDAP/TD VACCINES [facility] 00:00:00 (1 - Tdap) [code = Medical C enter DTAP/TDAP/TD VACCINES (1 - Tdap)] Future Scheduled 1981 DTAP/TDAP/TD VACCINES [facility] 00:00:00 (1 - Tdap) [code = Medical C enter DTAP/TDAP/TD VACCINES (1 - Tdap)] Future Scheduled 1981 DTAP/TDAP/TD VACCINES [facility] 00:00:00 (1 - Tdap) [code = Medical C enter DTAP/TDAP/TD VACCINES (1 - Tdap)] Future Scheduled [address] [facility] 00:00:00 0-64 YRS (1 - PCV) Medical C enter [code = PNEUMOCOCCAL VACCINE 0-64 YRS (1 - PCV)] Future Scheduled [address] [facility] 00:00:00 0-64 YRS (1 - PCV) Medical C enter [code = PNEUMOCOCCAL VACCINE 0-64 YRS (1 - PCV)] Future Scheduled [address] [facility] 00:00:00 0-64 YRS (1 - PCV) Medical C enter [code = PNEUMOCOCCAL VACCINE 0-64 YRS (1 - PCV)] Future Scheduled [address] [facility] 00:00:00 0-64 YRS (1 - PCV) Medical C enter [code = PNEUMOCOCCAL VACCINE 0-64 YRS (1 - PCV)] Future Scheduled 1962 COVID-19 VACCINE (#1) [facility] 00:00:00 [code = COVID-[address]ACCINE (#1)] Future Scheduled 1962 COVID-19 VACCINE (#1) [facility] 00:00:00 [code = COVID-[address] VACCINE (#1)] Future Scheduled 1962 COVID-19 VACCINE (#1) [facility] 00:00:00 [code = COVID-[address] VACCINE (#1)] Future Scheduled 1962 COVID-19 VACCINE (#1) [facility] 00:00:00 [code = COVID-[address] VACCINE (#1)] Future Scheduled 1962 Screening for malignant [facility] 00:00:00 neoplasm of breast Medical C enter (procedure) [code = 011810234] Future Scheduled 1962 CT Colonography (combo) [facility] 00:00:00 [code = CT Colonography [facility] (combo)] Future Scheduled 1962 Screening for malignant [facility] 00:00:00 neoplasm of colon Medical Ce nter (procedure) [code = 974567787] Future Scheduled 1962 Screening for malignant [facility] 00:00:00 neoplasm of colon Medical Ce nter (procedure) [code = 940958825] Future Scheduled 1962 Screening for malignant [facility] 00:00:00 neoplasm of colon Medical Ce nter (procedure) [code = 505995853] Future Scheduled 1962 Screening for malignant [facility] 00:00:00 neoplasm of colon Medical Ce nter (procedure) [code = 454780717] Future Scheduled 1962 Sigmoidoscopy [code = [facility] S[facility]oscopy] [facility] Future Scheduled 1962 Screening for malignant [facility] 00:00:00 neoplasm of breast Medical C enter (procedure) [code = 736389499] Future Scheduled 1962 CT Colonography (combo) [facility] 00:00:00 [code = CT Colon[facility] (combo)] Future Scheduled 1962 Screening for malignant [facility] 00:00:00 neoplasm of colon Medical Ce nter (procedure) [code = 157621057] Future Scheduled 1962 Screening for malignant [facility] 00:00:00 neoplasm of colon Medical Ce nter (procedure) [code = 676387203] Future Scheduled 1962 Screening for malignant [facility] 00:00:00 neoplasm of colon Medical Ce nter (procedure) [code = 335041460] Future Scheduled 1962 Screening for malignant [facility] 00:00:00 neoplasm of colon Medical Ce nter (procedure) [code = 452885002] Future Scheduled 1962 Sigmoidoscopy [code = [facility] Sigmoidoscopy] Medical [place] [facility] Future Scheduled 1962 Screening for malignant [facility] 00:00:00 neoplasm of breast Medical C enter (procedure) [code = 957462165] Future Scheduled 1962 CT Colonography (combo) [facility] 00:00:00 [code = CT Colonography [facility] (combo)] Future Scheduled 1962 Screening for malignant [facility] 00:00:00 neoplasm of colon Medical Ce nter (procedure) [code = 392239964] Future Scheduled 1962 Screening for malignant [facility] 00:00:00 neoplasm of colon Medical Ce nter (procedure) [code = 064299529] Future Scheduled 1962 Screening for malignant [facility] 00:00:00 neoplasm of colon Medical Ce nter (procedure) [code = 857046851] Future Scheduled 1962 Screening for malignant [facility] 00:00:00 neoplasm of colon Medical Ce nter (procedure) [code = 485603487] Future Scheduled 1962 Sigmoidoscopy [code = [facility] Sigmoidoscopy] Medical Cent[facility] r Future Scheduled 1962 Screening for malignant [facility] 00:00:00 neoplasm of breast Medical C enter (procedure) [code = 989285129] Future Scheduled 1962 CT Colonography (combo) [facility] 00:00:00 [code = CT Colonography [facility] (combo)] Future Scheduled 1962 Screening for malignant [facility] 00:00:00 neoplasm of colon Medical Ce nter (procedure) [code = 036590071] Future Scheduled 1962 Screening for malignant [facility] 00:00:00 neoplasm of colon Medical Ce nter (procedure) [code = 186958938] Future Scheduled 1962 Screening for malignant [facility] 00:00:00 neoplasm of colon Medical Ce nter (procedure) [code = 276719871] Future Scheduled 1962 Screening for malignant [facility] 00:00:00 neoplasm of colon Medical Ce nter (procedure) [code = 167545161] Future Scheduled 1962 Sigmoidoscopy [code = [facility] Sigmoidoscopy] Medical Cente r Goal Plan of Care Note [code = 58866-4] Goal Plan of Care Note [code = 29227-3] Goal Plan of Care Note [code = 04751-4] Goal Plan of Care Note [code = 85492-6] Goal Plan of Care Note [code = 59464-5] Goal Plan of Care Note [code = 50591-9] Goal Plan of Care Note [code = 79632-0] Goal Plan of Care Note [code = 58797-3] Goal Plan of Care Note [code = 39920-6] Goal Plan of Care Note [code = 05913-3] Goal Plan of Care Note [code = 82471-4] Goal Plan of Care Note [code = 87718-6] Goal Plan of Care Note [code = 97976-3] Goal Plan of Care Note [code = 00033-3] Goal Plan of Care Note [code = 55026-2] Goal Plan of Care Note [code = 20226-6] Goal Plan of Care Note [code = 39875-0] Goal Plan of Care Note [code = 81654-6] Goal Plan of Care Note [code = 24952-3] Goal Plan of Care Note [code = 06725-1] Goal Plan of Care Note [code = 48645-4] Goal Plan of Care Note [code = 33792-8] Goal Plan of Care Note [code = 43985-6] Goal Plan of Care Note [code = 75845-6] Goal Plan of Care Note [code = 85766-9] Goal Plan of Care Note [code = 87255-8] Goal Plan of Care Note [code = 95198-5] Goal Plan of Care Note [code = 32884-6] Goal Plan of Care Note [code = 79729-8] Goal Plan of Care Note [code = 60522-6] Goal Plan of Care Note [code = 05479-2] Goal Plan of Care Note [code = 88238-6] Goal Plan of Care Note [code = 74807-1] Goal Plan of Care Note [code = 46737-6] Goal Plan of Care Note [code = 20980-3] Encounters Start End Encounter Admission Attending Care Care Encounter Source Date/Time Date/Time Type Type Clinicians Facility Department ID 2022-11-16 2022-11-16 Outpatient PASCUAL GARNER [id number] Kamar 09:04:19 09:04:19 228 F Marj 2022-10-28 2022-10-[address] [facility]ef[facility]US[facility] [id number] [facility]00 [facility] 2022-10-28 2022-10-[address] JefConchita [id number] 00[facility] 00:[facility]:00 [facility] 2022-08-19 2022-08-19 Outpatient PASCUAL GARNER [id number] 220 Kamar 11:07:33 11:07:33 930 F Marj 2022-07-29 2022-07-29 Outpatient [id number] 00:00:00 00:00:00 Visit [id number] 2021-12-06 2021-12-06 [facility] [id number] [facility]00 [facility] 2021-11-05 2021-11-05 [facility] [id number] [facility] 00[facility]00 [facility] 2021-09-14 2021-09-14 [facility] [id number] [facility] 00:00:00 00:00:00 [facility] 2021-08-10 2021-08-10 Outpatient VAISHNAVI SANCHES [facility] [id number] [facility] 00:00:00 00:00:00 2021-08-02 2021-08-02 Outpatient VAISHNAVI SANCHES [facility] [id number] [facility] 00:00:00 00:00:00 2021-06-15 2021-06-15 Outpatient VAISHNAVI SANCHES [facility] [id number] [facility] 00:00:00 00:00:00 2021-04-16 2021-04-16 Outpatient VAISHNAVI SANCHES [facility] [id number] [facility] 00:00:00 00:00:00 Results Test Description Test Time Test Comments Results Result Comments Source COMPREHENSIVE METABOLIC PANEL 2022-07-30 08:43:11 Test Item Value Reference Range Interpretation Comme nts GLUCOSE (test code = 2217) 102 MG/DL 70-99 H BUN (test code = 8) 9 MG/DL 8-23 CREATININE (test code = 0.76 MG/DL 0.60-1.30 2213) eGFR (2020 CKD-EPI) (test 90 ML/MIN/1.73 >60 code = 30024) CALC BUN/CREAT (test code = 12 RATIO 05-17) SODIUM (test code = 2231) 142 MEQ/L 133-146 POTASSIUM (test code = 2228) 4.3 MEQ/L 3.5-5.4 CHLORIDE (test code = 2215) 105 MEQ/L 95-107 CARBON DIOXIDE (test code = 24 MEQ/L -2205) CALCIUM (test code = 2209) 10.1 MG/DL 8.5-10.5 PROTEIN, TOTAL (test code = 8.0 G/DL 6.1-8.3 2228) ALBUMIN (test code = 220) 4.1 G/DL 3.5-5.2 CALC GLOBULIN (test code = 3.9 G/DL 1.9-3.7 H 2239) CALC A/G RATIO (test code = 1.1 RATIO 1.0-2.6 2233) BILIRUBIN, TOTAL (test code 2.5 MG/DL See_Comment H [Automated message] The = 2206) system which ge nerated this result transmit ana maría reference range: <=1.2. T he reference range was not u sed to interpret this result as normal/abnormal . ALKALINE PHOSPHATASE (test 163 U/L 40-136 H code = 2204) AST (test code = 2218) 125 U/L 9-40 H ALT (test code = 2219) 94 U/L 5-40 H LIPID [id number] 08:43:11 Test Item Value Reference Range Interpretation Comments CHOLESTEROL (test 137 MG/DL <200 code = 2210) TRIGLYCERIDES (test 98 MG/DL <150 code = 2232) HDL CHOLESTEROL (test 48 MG/DL >39 code = 2220) CALC LDL CHOL (test 71 MG/DL <100 NOTE: C ALCULATED LDL code = 2237) IS BASED ON VIOLET-CHAMORRO METHOD WHICHINCLUDES ADJUSTABLE TRIGLYCERIDE:VL DL CHOLESTEROL RAT IO.THIS FACTOR VARIES B Y MEASURED TRIGLY CERIDE AND NON-HDLCHOL ESTEROL CONCENTRATIONS WITH INCREASED CALCU LATED LDL SEENIN HIGH ER TRIGLYCERIDE OR LOWER NON-HDL SPECIME NS. FOR MOREINFORMATION , SEE CLIENT ANNOUNCE MENT AT [email or web address] RISK RATIO LDL/HDL 1.48 RATIO <3.22 UNLESS O THERWISE (test code = 223) INDICATED , ALL TESTING PERFORMED [facility], [place] [facility] [place] [address] [facility] DIRECTOR: MARLENE BARBOSA M.D. CLIA NUMBER [id number] CAP ACCREDITATION N O. [id number] CBC W/AUTO DIFF WITH [id number] 08:17:54 Test Item Value Reference Range Interpretation Comments WBC (test code = 7.1 K/UL 3.5-11.0 1001) RBC (test code = 3.72 M/UL 3.80-5.40 L 1002) HEMOGLOBIN (test code 12.9 G/DL 11.5-15.5 = 1003) HEMATOCRIT (test code 37.1 % 34.0-45.0 = 1004) MCV (test code = 99.7 fL 80.0-99.0 H 1005) MCH (test code = 34.7 PG 25.0-33.0 H 1006) MCHC (test code = 34.8 G/DL 31.0-36.0 1007) RDW (test code = 12.1 % 11.5-15.0 1038) NEUTROPHILS (test 60.4 % code = 1008) LYMPHOCYTES (test 25.1 % code = 1010) MONOCYTES (test code 11.1 % = 1011) EOSINOPHILS (test 2.7 % code = 1012) BASOPHILS (test code 0.6 % = 1013) IMMATURE GRANULOCYTES 0.1 % (test code = 1036) NUCLEATED RBCS (test 0.0 /100 WBC'S See_Comment [Aut omated code = 1065) message] The sy stem which generated this result transmitted reference range : 0.0. The refere nce range was not u sed to interpret th is result as normal/abnormal . PLATELET COUNT (test 81 K/UL 130-400 L code = 1015) ABSOLUTE NEUTROPHILS 4.30 K/UL 1.50-7.50 (test code = 1066) ABSOLUTE LYMPHOCYTES 1.79 K/UL 1.00-4.00 (test code = 1067) ABSOLUTE MONOCYTES 0.79 K/UL 0.20-1.00 (test code = 1068) ABSOLUTE EOSINOPHILS 0.19 K/UL 0.00-0.50 (test code = 1040) ABSOLUTE BASOPHILS 0.04 K/UL 0.00-0.20 (test code = 1069) ABS IMMATURE 0.01 K/UL 0.00-0.10 GRANULOCYTES (test code = 1020) ABS NUCLEATED RBCS 0.00 K/UL 0.00-0.11 (test code = 62151) HEMOGLOBIN [id number] 08:16:27 Test Item Value Reference Range Interpretation Comments HEMOGLOBIN A1c (test code = 89071) 4.4 % 4.2-5.6 HEMOGLOBIN [id number] 00:00:00 Test Item Value Reference Range Interpretation Comments HEMOGLOBIN A1c (test code = 02948) 4.4 % HEMOGLOBIN [id number] 00:00:00 Test Item Value Reference Range Interpretation Comments HEMOGLOBIN A1c (test code = 12887) 4.4 % HEMOGLOBIN [id number] 00:00:00 Test Item Value Reference Range Interpretation Comments HEMOGLOBIN A1c (test code = 52963) 4.4 % CBC W/AUTO [id number] 00:00:00 Test Item Value Reference Range Interpretation Comments WBC (test code = 1001) 7.1 K/UL RBC (test code = 1002) 3.72 M/UL HEMOGLOBIN (test code = 1003) 12.9 G/DL HEMATOCRIT (test code = 1004) 37.1 % MCV (test code = 1005) 99.7 fL MCH (test code = 1006) 34.7 PG MCHC (test code = 1007) 34.8 G/DL RDW (test code = 1038) 12.1 % NEUTROPHILS (test code = 1008) 60.4 % LYMPHOCYTES (test code = 1010) 25.1 % MONOCYTES (test code = 1011) 11.1 % EOSINOPHILS (test code = 1012) 2.7 % BASOPHILS (test code = 1013) 0.6 % IMMATURE GRANULOCYTES (test 0.1 % code = 1036) NUCLEATED RBCS (test code = 0.0 /100WBC'S 1065) PLATELET COUNT (test code = 81 K/UL 1015) ABSOLUTE NEUTROPHILS (test code 4.30 K/UL = 1066) ABSOLUTE LYMPHOCYTES (test code 1.79 K/UL = 1067) ABSOLUTE MONOCYTES (test code = 0.79 K/UL 1068) ABSOLUTE EOSINOPHILS (test code 0.19 K/UL = 1040) ABSOLUTE BASOPHILS (test code = 0.04 K/UL 1069) ABS IMMATURE GRANULOCYTES (test 0.01 K/UL code = 1020) ABS NUCLEATED RBCS (test code = 0.00 K/UL 48530) CBC W/AUTO [id number] 00:00:00 Test Item Value Reference Range Interpretation Comments WBC (test code = 1001) 7.1 K/UL RBC (test code = 1002) 3.72 M/UL HEMOGLOBIN (test code = 1003) 12.9 G/DL HEMATOCRIT (test code = 1004) 37.1 % MCV (test code = 1005) 99.7 fL MCH (test code = 1006) 34.7 PG MCHC (test code = 1007) 34.8 G/DL RDW (test code = 1038) 12.1 % NEUTROPHILS (test code = 1008) 60.4 % LYMPHOCYTES (test code = 1010) 25.1 % MONOCYTES (test code = 1011) 11.1 % EOSINOPHILS (test code = 1012) 2.7 % BASOPHILS (test code = 1013) 0.6 % IMMATURE GRANULOCYTES (test 0.1 % code = 1036) NUCLEATED RBCS (test code = 0.0 /100WBC'S 1065) PLATELET COUNT (test code = 81 K/UL 1015) ABSOLUTE NEUTROPHILS (test code 4.30 K/UL = 1066) ABSOLUTE LYMPHOCYTES (test code 1.79 K/UL = 1067) ABSOLUTE MONOCYTES (test code = 0.79 K/UL 1068) ABSOLUTE EOSINOPHILS (test code 0.19 K/UL = 1040) ABSOLUTE BASOPHILS (test code = 0.04 K/UL 1069) ABS IMMATURE GRANULOCYTES (test 0.01 K/UL code = 1020) ABS NUCLEATED RBCS (test code = 0.00 K/UL 24356) CBC W/AUTO [id number] 00:00:00 Test Item Value Reference Range Interpretation Comments WBC (test code = 1001) 7.1 K/UL RBC (test code = 1002) 3.72 M/UL HEMOGLOBIN (test code = 1003) 12.9 G/DL HEMATOCRIT (test code = 1004) 37.1 % MCV (test code = 1005) 99.7 fL MCH (test code = 1006) 34.7 PG MCHC (test code = 1007) 34.8 G/DL RDW (test code = 1038) 12.1 % NEUTROPHILS (test code = 1008) 60.4 % LYMPHOCYTES (test code = 1010) 25.1 % MONOCYTES (test code = 1011) 11.1 % EOSINOPHILS (test code = 1012) 2.7 % BASOPHILS (test code = 1013) 0.6 % IMMATURE GRANULOCYTES (test 0.1 % code = 1036) NUCLEATED RBCS (test code = 0.0 /100WBC'S 1065) PLATELET COUNT (test code = 81 K/UL 1015) ABSOLUTE NEUTROPHILS (test code 4.30 K/UL = 1066) ABSOLUTE LYMPHOCYTES (test code 1.79 K/UL = 1067) ABSOLUTE MONOCYTES (test code = 0.79 K/UL 1068) ABSOLUTE EOSINOPHILS (test code 0.19 K/UL = 1040) ABSOLUTE BASOPHILS (test code = 0.04 K/UL 1069) ABS IMMATURE GRANULOCYTES (test 0.01 K/UL code = 1020) ABS NUCLEATED RBCS (test code = 0.00 K/UL 91239) COMPREHENSIVE METABOLIC [id number] 00:00:00 Test Item Value Reference Range Interpretation Comments GLUCOSE (test code = 2217) 102 MG/DL BUN (test code = 2208) 9 MG/DL CREATININE (test code = 2214) 0.76 MG/DL eGFR (2020 CKD-EPI) (test code 90 ML/MIN/1.73 = 73399) CALC BUN/CREAT (test code = 12 RATIO 2235) SODIUM (test code = 2231) 142 MEQ/L POTASSIUM (test code = 2228) 4.3 MEQ/L CHLORIDE (test code = 2215) 105 MEQ/L CARBON DIOXIDE (test code = 24 MEQ/L 220) CALCIUM (test code = 2209) 10.1 MG/DL PROTEIN, TOTAL (test code = 8.0 G/DL 2228) ALBUMIN (test code = 2201) 4.1 G/DL CALC GLOBULIN (test code = 3.9 G/DL 2240) CALC A/G RATIO (test code = 1.1 RATIO 2234) BILIRUBIN, TOTAL (test code = 2.5 MG/DL 2206) ALKALINE PHOSPHATASE (test 163 U/L code = 2204) AST (test code = 2218) 125 U/L ALT (test code = 2219) 94 U/L COMPREHENSIVE METABOLIC [id number] 00:00:00 Test Item Value Reference Range Interpretation Comments GLUCOSE (test code = 2217) 102 MG/DL BUN (test code = 2208) 9 MG/DL CREATININE (test code = 2214) 0.76 MG/DL eGFR (2020 CKD-EPI) (test code 90 ML/MIN/1.73 = 78959) CALC BUN/CREAT (test code = 12 RATIO 2235) SODIUM (test code = 2231) 142 MEQ/L POTASSIUM (test code = 2228) 4.3 MEQ/L CHLORIDE (test code = 2215) 105 MEQ/L CARBON DIOXIDE (test code = 24 MEQ/L 2205) CALCIUM (test code = 2209) 10.1 MG/DL PROTEIN, TOTAL (test code = 8.0 G/DL 2228) ALBUMIN (test code = 2201) 4.1 G/DL CALC GLOBULIN (test code = 3.9 G/DL 2239) CALC A/G RATIO (test code = 1.1 RATIO 223) BILIRUBIN, TOTAL (test code = 2.5 MG/DL 2206) ALKALINE PHOSPHATASE (test 163 U/L code = 2204) AST (test code = 2218) 125 U/L ALT (test code = 2219) 94 U/L LIPID [id number] 00:00:00 Test Item Value Reference Range Interpretation Comments CHOLESTEROL (test code = 2210) 137 MG/DL TRIGLYCERIDES (test code = 2232) 98 MG/DL HDL CHOLESTEROL (test code = 2220) 48 MG/DL CALC LDL CHOL (test code = 2237) 71 MG/DL RISK RATIO LDL/HDL (test code = 1.48 RATIO 2238) LIPID [id number] 00:00:00 Test Item Value Reference Range Interpretation Comments CHOLESTEROL (test code = 2210) 137 MG/DL TRIGLYCERIDES (test code = 2232) 98 MG/DL HDL CHOLESTEROL (test code = 2220) 48 MG/DL CALC LDL CHOL (test code = 2237) 71 MG/DL RISK RATIO LDL/HDL (test code = 1.48 RATIO 2238) TSH, THIRD [id number] 03:55:19 Test Item Value Reference Range Interpretation Comments TSH, THIRD GENERATION (test code 2.080 UIU/ML 0.400-4.100 = 2821) FREE [id number] 03:55:19 Test Item Value Reference Range Interpretation Comments FREE T3 (test code = 4273) 2.5 PG/ML 2.2-4.2 FREE T4 (THYROXINE)2022-04-23 03:55:19 Test Item Value Reference Range Interpretation Comments FREE T4 1.43 NG/DL 0.80-1.90 UNLESS OTHERWI SE (THYROXINE) (test INDICATED, ALL TESTING code = 2823) [facility] [address] [place] [address] [facility] DIRECTOR: MARLENE BARBOSA M.D. CLIA NUMBER [id number] CAP ACCREDITATION N O. [id number] 00:00:00 Test Item Value Reference Range Interpretation Comments TSH, THIRD GENERATION (test code 2.080 UIU/ML = 2821) [id number] 00:00:00 Test Item Value Reference Range Interpretation Comments TSH, THIRD GENERATION (test code 2.080 UIU/ML = 2821) [id number] 00:00:00 Test Item Value Reference Range Interpretation Comments TSH, THIRD GENERATION (test code 2.080 UIU/ML = 2821) FREE 00:00:00 Test Item Value Reference Range Interpretation Comments FREE T3 (test code = 4273) 2.5 PG/ML FREE 00:00:00 Test Item Value Reference Range Interpretation Comments FREE T3 (test code = 4273) 2.5 PG/ML FREE T4 (THYROXINE)2022-04-23 00:00:00 Test Item Value Reference Range Interpretation Comments FREE T4 (THYROXINE) (test code = 1.43 NG/DL 2823) FREE T4 (THYROXINE)2022-04-23 00:00:00 Test Item Value Reference Range Interpretation Comments FREE T4 (THYROXINE) (test code = 1.43 NG/DL 2823) FREE T4 (THYROXINE)2022-04-23 00:00:00 Test Item Value Reference Range Interpretation Comments FREE T4 (THYROXINE) (test code = 1.43 NG/DL 2823) BASIC METABOLIC [id number] 04:23:34 Test Item Value Reference Range Interpretation Comments GLUCOSE (test code 86 MG/DL 70-99 = 2217) BUN (test code = 8 MG/DL 05-09) CREATININE (test 0.75 MG/DL 0.60-1.30 code = 2214) eGFR (2020 CKD-EPI) 92 ML/MIN/1.73 >60 (test code = 83354) SODIUM (test code = 139 MEQ/L 262-220 5625) POTASSIUM (test 3.8 MEQ/L 3.5-5.4 code = 2228) CHLORIDE (test code 103 MEQ/L 95-107 = 2215) CARBON DIOXIDE 22 MEQ/L 19-31 (test code = 2206) CALCIUM (test code 9.9 MG/DL 8.5-10.5 UNLESS OTHERWISE = 2209) INDICATED, ALL TESTING PERFORM [facility] [place] [place] [address] [facility] DIRECTOR: MARLENE BARBOSA M.D. CLIA NUMBER [id number] CAP ACCREDITATION N O. [id number] BASIC METABOLIC [id number] 00:00:00 Test Item Value Reference Range Interpretation Comments GLUCOSE (test code = 2217) 86 MG/DL BUN (test code = 2208) 8 MG/DL CREATININE (test code = 2214) 0.75 MG/DL eGFR (2020 CKD-EPI) (test code 92 ML/MIN/1.73 = 79875) SODIUM (test code = 2231) 139 MEQ/L POTASSIUM (test code = 2228) 3.8 MEQ/L CHLORIDE (test code = 2215) 103 MEQ/L CARBON DIOXIDE (test code = 22 MEQ/L 2206) CALCIUM (test code = 2209) 9.9 MG/DL BASIC METABOLIC [id number] 00:00:00 Test Item Value Reference Range Interpretation Comments GLUCOSE (test code = 2217) 86 MG/DL BUN (test code = 2208) 8 MG/DL CREATININE (test code = 2214) 0.75 MG/DL eGFR (2020 CKD-EPI) (test code 92 ML/MIN/1.73 = 77882) SODIUM (test code = 2231) 139 MEQ/L POTASSIUM (test code = 2228) 3.8 MEQ/L CHLORIDE (test code = 2215) 103 MEQ/L CARBON DIOXIDE (test code = 22 MEQ/L 2206) CALCIUM (test code = 2209) 9.9 MG/DL COMPREHENSIVE METABOLIC [id number] 00:00:00 Test Item Value Reference Range Interpretation Comments GLUCOSE (test code = 2217) 90 MG/DL BUN (test code = 2208) 18 MG/DL CREATININE (test code = 2214) 1.15 MG/DL eGFR AMER. (test code 60 ML/MIN/1.73 = 01556) eGFR NON- AMER. (test 52 ML/MIN/1.73 code = 12170) CALC BUN/CREAT (test code = 16 RATIO 2235) SODIUM (test code = 2231) 137 MEQ/L POTASSIUM (test code = 2228) 4.9 MEQ/L CHLORIDE (test code = 2215) 108 MEQ/L CARBON DIOXIDE (test code = 20 MEQ/L 2205) CALCIUM (test code = 2209) 9.7 MG/DL PROTEIN, TOTAL (test code = 7.9 G/DL 2228) ALBUMIN (test code = 2201) 3.7 G/DL CALC GLOBULIN (test code = 4.2 G/DL 2240) CALC A/G RATIO (test code = 0.9 RATIO 2234) BILIRUBIN, TOTAL (test code = 1.2 MG/DL 2206) ALKALINE PHOSPHATASE (test 197 U/L code = 2204) AST (test code = 2218) 74 U/L ALT (test code = 2219) 64 U/L COMPREHENSIVE METABOLIC [id number] 00:00:00 Test Item Value Reference Range Interpretation Comments GLUCOSE (test code = 2217) 90 MG/DL BUN (test code = 2208) 18 MG/DL CREATININE (test code = 2214) 1.15 MG/DL eGFR AMER. (test code 60 ML/MIN/1.73 = 16110) eGFR NON- AMER. (test 52 ML/MIN/1.73 code = 61259) CALC BUN/CREAT (test code = 16 RATIO 2235) SODIUM (test code = 2231) 137 MEQ/L POTASSIUM (test code = 2228) 4.9 MEQ/L CHLORIDE (test code = 2215) 108 MEQ/L CARBON DIOXIDE (test code = 20 MEQ/L 2205) CALCIUM (test code = 2209) 9.7 MG/DL PROTEIN, TOTAL (test code = 7.9 G/DL 2228) ALBUMIN (test code = 2201) 3.7 G/DL CALC GLOBULIN (test code = 4.2 G/DL 2240) CALC A/G RATIO (test code = 0.9 RATIO 2234) BILIRUBIN, TOTAL (test code = 1.2 MG/DL 2207) ALKALINE PHOSPHATASE (test 197 U/L code = 2204) AST (test code = 2218) 74 U/L ALT (test code = 2219) 64 U/L CBC W/AUTO [id number] 00:00:00 Test Item Value Reference Range Interpretation Comments WBC (test code = 1001) 6.2 K/UL RBC (test code = 1002) 3.56 M/UL HEMOGLOBIN (test code = 1003) 12.4 G/DL HEMATOCRIT (test code = 1004) 34.8 % MCV (test code = 1005) 97.8 fL MCH (test code = 1006) 34.8 PG MCHC (test code = 1007) 35.6 G/DL RDW (test code = 1038) 11.9 % NEUTROPHILS (test code = 1008) 57.0 % LYMPHOCYTES (test code = 1010) 29.1 % MONOCYTES (test code = 1011) 9.5 % EOSINOPHILS (test code = 1012) 3.4 % BASOPHILS (test code = 1013) 0.5 % IMMATURE GRANULOCYTES (test 0.5 % code = 1036) NUCLEATED RBCS (test code = 0.0 /100WBC'S 1065) PLATELET COUNT (test code = 98 K/UL 1015) ABSOLUTE NEUTROPHILS (test code 3.52 K/UL = 1066) ABSOLUTE LYMPHOCYTES (test code 1.80 K/UL = 1067) ABSOLUTE MONOCYTES (test code = 0.59 K/UL 1068) ABSOLUTE EOSINOPHILS (test code 0.21 K/UL = 1040) ABSOLUTE BASOPHILS (test code = 0.03 K/UL 1069) ABS IMMATURE GRANULOCYTES (test 0.03 K/UL code = 1020) ABS NUCLEATED RBCS (test code = 0.00 K/UL 69765) CBC W/AUTO [id number] 00:00:00 Test Item Value Reference Range Interpretation Comments WBC (test code = 1001) 6.2 K/UL RBC (test code = 1002) 3.56 M/UL HEMOGLOBIN (test code = 1003) 12.4 G/DL HEMATOCRIT (test code = 1004) 34.8 % MCV (test code = 1005) 97.8 fL MCH (test code = 1006) 34.8 PG MCHC (test code = 1007) 35.6 G/DL RDW (test code = 1038) 11.9 % NEUTROPHILS (test code = 1008) 57.0 % LYMPHOCYTES (test code = 1010) 29.1 % MONOCYTES (test code = 1011) 9.5 % EOSINOPHILS (test code = 1012) 3.4 % BASOPHILS (test code = 1013) 0.5 % IMMATURE GRANULOCYTES (test 0.5 % code = 1036) NUCLEATED RBCS (test code = 0.0 /100WBC'S 1065) PLATELET COUNT (test code = 98 K/UL 1015) ABSOLUTE NEUTROPHILS (test code 3.52 K/UL = 1066) ABSOLUTE LYMPHOCYTES (test code 1.80 K/UL = 1067) ABSOLUTE MONOCYTES (test code = 0.59 K/UL 1068) ABSOLUTE EOSINOPHILS (test code 0.21 K/UL = 1040) ABSOLUTE BASOPHILS (test code = 0.03 K/UL 1069) ABS IMMATURE GRANULOCYTES (test 0.03 K/UL code = 1020) ABS NUCLEATED RBCS (test code = 0.00 K/UL 24872) CBC W/AUTO [id number] 00:00:00 Test Item Value Reference Range Interpretation Comments WBC (test code = 1001) 6.2 K/UL RBC (test code = 1002) 3.56 M/UL HEMOGLOBIN (test code = 1003) 12.4 G/DL HEMATOCRIT (test code = 1004) 34.8 % MCV (test code = 1005) 97.8 fL MCH (test code = 1006) 34.8 PG MCHC (test code = 1007) 35.6 G/DL RDW (test code = 1038) 11.9 % NEUTROPHILS (test code = 1008) 57.0 % LYMPHOCYTES (test code = 1010) 29.1 % MONOCYTES (test code = 1011) 9.5 % EOSINOPHILS (test code = 1012) 3.4 % BASOPHILS (test code = 1013) 0.5 % IMMATURE GRANULOCYTES (test 0.5 % code = 1036) NUCLEATED RBCS (test code = 0.0 /100WBC'S 1065) PLATELET COUNT (test code = 98 K/UL 1015) ABSOLUTE NEUTROPHILS (test code 3.52 K/UL = 1066) ABSOLUTE LYMPHOCYTES (test code 1.80 K/UL = 1067) ABSOLUTE MONOCYTES (test code = 0.59 K/UL 1068) ABSOLUTE EOSINOPHILS (test code 0.21 K/UL = 1040) ABSOLUTE BASOPHILS (test code = 0.03 K/UL 1069) ABS IMMATURE GRANULOCYTES (test 0.03 K/UL code = 1020) ABS NUCLEATED RBCS (test code = 0.00 K/UL 90421) COMPREHENSIVE METABOLIC [id number] 00:00:00 Test Item Value Reference Range Interpretation Comments GLUCOSE (test code = 2217) 89 MG/DL BUN (test code = 2208) 9 MG/DL CREATININE (test code = 2214) 0.81 MG/DL eGFR AMER. (test code 92 ML/MIN/1.73 = 72093) eGFR NON- AMER. (test 79 ML/MIN/1.73 code = 64110) CALC BUN/CREAT (test code = 11 RATIO 2235) SODIUM (test code = 2231) 140 MEQ/L POTASSIUM (test code = 2228) 4.3 MEQ/L CHLORIDE (test code = 2215) 106 MEQ/L CARBON DIOXIDE (test code = 24 MEQ/L 2205) CALCIUM (test code = 2209) 9.5 MG/DL PROTEIN, TOTAL (test code = 7.0 G/DL 2228) ALBUMIN (test code = 2201) 3.2 G/DL CALC GLOBULIN (test code = 3.8 G/DL 2240) CALC A/G RATIO (test code = 0.8 RATIO 4) BILIRUBIN, TOTAL (test code = 1.8 MG/DL 2206) ALKALINE PHOSPHATASE (test 151 U/L code = 2204) AST (test code = 2218) 104 U/L ALT (test code = 2219) 73 U/L COMPREHENSIVE METABOLIC [id number] 00:00:00 Test Item Value Reference Range Interpretation Comments GLUCOSE (test code = 2217) 89 MG/DL BUN (test code = 2208) 9 MG/DL CREATININE (test code = 2214) 0.81 MG/DL eGFR AMER. (test code 92 ML/MIN/1.73 = 25648) eGFR NON- AMER. (test 79 ML/MIN/1.73 code = 77329) CALC BUN/CREAT (test code = 11 RATIO 2235) SODIUM (test code = 2231) 140 MEQ/L POTASSIUM (test code = 2228) 4.3 MEQ/L CHLORIDE (test code = 2215) 106 MEQ/L CARBON DIOXIDE (test code = 24 MEQ/L 2205) CALCIUM (test code = 2209) 9.5 MG/DL PROTEIN, TOTAL (test code = 7.0 G/DL 2228) ALBUMIN (test code = 2201) 3.2 G/DL CALC GLOBULIN (test code = 3.8 G/DL 0) CALC A/G RATIO (test code = 0.8 RATIO 2233) BILIRUBIN, TOTAL (test code = 1.8 MG/DL 2206) ALKALINE PHOSPHATASE (test 151 U/L code = 2204) AST (test code = 2218) 104 U/L ALT (test code = 2219) 73 U/L PATHOLOGIST SMEAR [id number] 00:00:00 Test Item Value Reference Range Interpretation Comments DIAGNOSIS: (test code = 8200) (NOTE) MICROSCOPIC DESCRIPTION: (test (NOTE) code = 8210) PATHOLOGIST: (test code = 8250) (NOTE) CPT: (test code = 8400) 04889 WBC (test code = 1001) 8.4 K/UL RBC (test code = 1002) 3.89 M/UL HEMOGLOBIN (test code = 1003) 12.7 G/DL HEMATOCRIT (test code = 1004) 37.4 % MCV (test code = 1005) 96.1 fL MCH (test code = 1006) 32.6 PG MCHC (test code = 1007) 34.0 G/DL RDW (test code = 1038) 12.1 % NEUTROPHILS (test code = 1008) 63.4 % LYMPHOCYTES (test code = 1010) 29.6 % MONOCYTES (test code = 1011) 6.1 % EOSINOPHILS (test code = 1012) 0.9 % BASOPHILS (test code = 1013) 0.0 % NUCLEATED RBCS (test code = 0.0 /100WBC'S 1065) PLATELET COUNT (test code = 94 K/UL 1015) ABSOLUTE NEUTROPHILS (test code 5.33 K/UL = 1066) ABSOLUTE LYMPHOCYTES (test code 2.49 K/UL = 1067) ABSOLUTE MONOCYTES (test code = 0.51 K/UL 1068) ABSOLUTE EOSINOPHILS (test code 0.08 K/UL = 1040) ABSOLUTE BASOPHILS (test code = 0.00 K/UL 1069) ABS NUCLEATED RBCS (test code = 0.00 K/UL 85190) COMMENTS (test code = 1016) (NOTE) PATHOLOGIST SMEAR [id number] 00:00:00 Test Item Value Reference Range Interpretation Comments DIAGNOSIS: (test code = 8200) (NOTE) MICROSCOPIC DESCRIPTION: (test (NOTE) code = 8210) PATHOLOGIST: (test code = 8250) (NOTE) CPT: (test code = 8400) 05324 WBC (test code = 1001) 8.4 K/UL RBC (test code = 1002) 3.89 M/UL HEMOGLOBIN (test code = 1003) 12.7 G/DL HEMATOCRIT (test code = 1004) 37.4 % MCV (test code = 1005) 96.1 fL MCH (test code = 1006) 32.6 PG MCHC (test code = 1007) 34.0 G/DL RDW (test code = 1038) 12.1 % NEUTROPHILS (test code = 1008) 63.4 % LYMPHOCYTES (test code = 1010) 29.6 % MONOCYTES (test code = 1011) 6.1 % EOSINOPHILS (test code = 1012) 0.9 % BASOPHILS (test code = 1013) 0.0 % NUCLEATED RBCS (test code = 0.0 /100WBC'S 1065) PLATELET COUNT (test code = 94 K/UL 1015) ABSOLUTE NEUTROPHILS (test code 5.33 K/UL = 1066) ABSOLUTE LYMPHOCYTES (test code 2.49 K/UL = 1067) ABSOLUTE MONOCYTES (test code = 0.51 K/UL 1068) ABSOLUTE EOSINOPHILS (test code 0.08 K/UL = 1040) ABSOLUTE BASOPHILS (test code = 0.00 K/UL 1069) ABS NUCLEATED RBCS (test code = 0.00 K/UL 52323) COMMENTS (test code = 1016) (NOTE) CBC W/AUTO [id number] 00:00:00 Test Item Value Reference Range Interpretation Comments WBC (test code = 1001) 6.9 K/UL RBC (test code = 1002) 4.08 M/UL HEMOGLOBIN (test code = 1003) 13.4 G/DL HEMATOCRIT (test code = 1004) 39.3 % MCV (test code = 1005) 96.3 fL MCH (test code = 1006) 32.8 PG MCHC (test code = 1007) 34.1 G/DL RDW (test code = 1038) 12.1 % NEUTROPHILS (test code = 1008) 47.5 % LYMPHOCYTES (test code = 1010) 40.8 % MONOCYTES (test code = 1011) 8.4 % EOSINOPHILS (test code = 1012) 2.3 % BASOPHILS (test code = 1013) 0.7 % IMMATURE GRANULOCYTES (test 0.3 % code = 1036) NUCLEATED RBCS (test code = 0.0 /100WBC'S 1065) PLATELET COUNT (test code = 88 K/UL 1015) ABSOLUTE NEUTROPHILS (test code 3.26 K/UL = 1066) ABSOLUTE LYMPHOCYTES (test code 2.80 K/UL = 1067) ABSOLUTE MONOCYTES (test code = 0.58 K/UL 1068) ABSOLUTE EOSINOPHILS (test code 0.16 K/UL = 1040) ABSOLUTE BASOPHILS (test code = 0.05 K/UL 1069) ABS IMMATURE GRANULOCYTES (test 0.02 K/UL code = 1020) ABS NUCLEATED RBCS (test code = 0.00 K/UL 40267) CBC W/AUTO [id number] 00:00:00 Test Item Value Reference Range Interpretation Comments WBC (test code = 1001) 6.9 K/UL RBC (test code = 1002) 4.08 M/UL HEMOGLOBIN (test code = 1003) 13.4 G/DL HEMATOCRIT (test code = 1004) 39.3 % MCV (test code = 1005) 96.3 fL MCH (test code = 1006) 32.8 PG MCHC (test code = 1007) 34.1 G/DL RDW (test code = 1038) 12.1 % NEUTROPHILS (test code = 1008) 47.5 % LYMPHOCYTES (test code = 1010) 40.8 % MONOCYTES (test code = 1011) 8.4 % EOSINOPHILS (test code = 1012) 2.3 % BASOPHILS (test code = 1013) 0.7 % IMMATURE GRANULOCYTES (test 0.3 % code = 1036) NUCLEATED RBCS (test code = 0.0 /100WBC'S 1065) PLATELET COUNT (test code = 88 K/UL 1015) ABSOLUTE NEUTROPHILS (test code 3.26 K/UL = 1066) ABSOLUTE LYMPHOCYTES (test code 2.80 K/UL = 1067) ABSOLUTE MONOCYTES (test code = 0.58 K/UL 1068) ABSOLUTE EOSINOPHILS (test code 0.16 K/UL = 1040) ABSOLUTE BASOPHILS (test code = 0.05 K/UL 1069) ABS IMMATURE GRANULOCYTES (test 0.02 K/UL code = 1020) ABS NUCLEATED RBCS (test code = 0.00 K/UL 37031) CBC W/AUTO [id number] 00:00:00 Test Item Value Reference Range Interpretation Comments WBC (test code = 1001) 6.9 K/UL RBC (test code = 1002) 4.08 M/UL HEMOGLOBIN (test code = 1003) 13.4 G/DL HEMATOCRIT (test code = 1004) 39.3 % MCV (test code = 1005) 96.3 fL MCH (test code = 1006) 32.8 PG MCHC (test code = 1007) 34.1 G/DL RDW (test code = 1038) 12.1 % NEUTROPHILS (test code = 1008) 47.5 % LYMPHOCYTES (test code = 1010) 40.8 % MONOCYTES (test code = 1011) 8.4 % EOSINOPHILS (test code = 1012) 2.3 % BASOPHILS (test code = 1013) 0.7 % IMMATURE GRANULOCYTES (test 0.3 % code = 1036) NUCLEATED RBCS (test code = 0.0 /100WBC'S 1065) PLATELET COUNT (test code = 88 K/UL 1015) ABSOLUTE NEUTROPHILS (test code 3.26 K/UL = 1066) ABSOLUTE LYMPHOCYTES (test code 2.80 K/UL = 1067) ABSOLUTE MONOCYTES (test code = 0.58 K/UL 1068) ABSOLUTE EOSINOPHILS (test code 0.16 K/UL = 1040) ABSOLUTE BASOPHILS (test code = 0.05 K/UL 1069) ABS IMMATURE GRANULOCYTES (test 0.02 K/UL code = 1020) ABS NUCLEATED RBCS (test code = 0.00 K/UL 88839) COMPREHENSIVE METABOLIC [id number] 00:00:00 Test Item Value Reference Range Interpretation Comments GLUCOSE (test code = 2217) 98 MG/DL BUN (test code = 2208) 9 MG/DL CREATININE (test code = 2214) 0.72 MG/DL eGFR AMER. (test code 106 ML/MIN/1.73 = 79478) eGFR NON- AMER. (test 92 ML/MIN/1.73 code = 03608) CALC BUN/CREAT (test code = 13 RATIO 2235) SODIUM (test code = 2231) 144 MEQ/L POTASSIUM (test code = 2228) 5.1 MEQ/L CHLORIDE (test code = 2215) 109 MEQ/L CARBON DIOXIDE (test code = 23 MEQ/L 2205) CALCIUM (test code = 2209) 9.5 MG/DL PROTEIN, TOTAL (test code = 7.5 G/DL 222) ALBUMIN (test code = 2201) 3.8 G/DL CALC GLOBULIN (test code = 3.7 G/DL 2240) CALC A/G RATIO (test code = 1.0 RATIO 2234) BILIRUBIN, TOTAL (test code = 1.6 MG/DL 2206) ALKALINE PHOSPHATASE (test 154 U/L code = 2204) AST (test code = 2218) 113 U/L ALT (test code = 2219) 81 U/L COMPREHENSIVE METABOLIC [id number] 00:00:00 Test Item Value Reference Range Interpretation Comments GLUCOSE (test code = 2217) 98 MG/DL BUN (test code = 2208) 9 MG/DL CREATININE (test code = 2214) 0.72 MG/DL eGFR AMER. (test code 106 ML/MIN/1.73 = 87862) eGFR NON- AMER. (test 92 ML/MIN/1.73 code = 97987) CALC BUN/CREAT (test code = 13 RATIO 2234) SODIUM (test code = 2231) 144 MEQ/L POTASSIUM (test code = 2228) 5.1 MEQ/L CHLORIDE (test code = 2215) 109 MEQ/L CARBON DIOXIDE (test code = 23 MEQ/L 2205) CALCIUM (test code = 2209) 9.5 MG/DL PROTEIN, TOTAL (test code = 7.5 G/DL 2228) ALBUMIN (test code = 2201) 3.8 G/DL CALC GLOBULIN (test code = 3.7 G/DL 2240) CALC A/G RATIO (test code = 1.0 RATIO 2234) BILIRUBIN, TOTAL (test code = 1.6 MG/DL 7) ALKALINE PHOSPHATASE (test 154 U/L code = 2204) AST (test code = 2218) 113 U/L ALT (test code = 2219) 81 U/L LIPID [id number] 00:00:00 Test Item Value Reference Range Interpretation Comments CHOLESTEROL (test code = 2210) 115 MG/DL TRIGLYCERIDES (test code = 2232) 96 MG/DL HDL CHOLESTEROL (test code = 2220) 41 MG/DL CALC LDL CHOL (test code = 2237) 56 MG/DL RISK RATIO LDL/HDL (test code = 1.37 RATIO 2238) LIPID [id number] 00:00:00 Test Item Value Reference Range Interpretation Comments CHOLESTEROL (test code = 2210) 115 MG/DL TRIGLYCERIDES (test code = 2232) 96 MG/DL HDL CHOLESTEROL (test code = 2220) 41 MG/DL CALC LDL CHOL (test code = 2237) 56 MG/DL RISK RATIO LDL/HDL (test code = 1.37 RATIO 2238) MISCELLANEOUS LAB [id number] 10:27:00 Test Item Value Reference Range Interpretation Comments SCAN RESULT (test code = 9283515) See scanned [id number] 14:57:00 Test Item Value Reference Range Interpretation Comments FERRITIN (BEAKER) (test code = 425.05 ng/mL 5.00-275.00 H 361) Hair Rooting Machine Operator ID - JAVI CALPHA FETOPROTEIN (AFP), TUMOR [id number] 14:16:00 Test Item Value Reference Range Interpretation Comments ALPHA-FETOPROTEIN (BEAKER) (test 38.9 ng/mL <10.0 H code = 1094) Hair Rooting Machine Operator ID - MARJ MHEPATITIS B CORE ANTIBODY, [id number] 14:16:00 Test Item Value Reference Range Interpretation Comments HEPATITIS B CORE TOTAL ANTIBODY Nonreactive Nonreactive (BEAKER) (test code = 497) Hair Rooting Machine Operator ID - MARJ ADÁN, TIBC, % SAT. (WITHOUT FERRITIN)2021-04-16 13:52:00 Test Item Value Reference Range Interpretation Comments IRON (BEAKER) (test code = 547) 136.0 ug/dL 40.0-160.0 TOTAL IRON BINDING CAPACITY 325 ug/dL 250-450 (BEAKER) (test code = 769) IRON % SATURATION (2) (BEAKER) 42 % 20-55 (test code = 2590) Hair Rooting Machine Operator ID - MARJ MCOMPREHENSIVE METABOLIC [id number] 13:50:00 Test Item Value Reference Range Interpretation [...] S NOT APPLICABLE FOR DIALYSIS PATIEN TS. Hair Rooting Machine Operator ID - MARJ MBILIRUBIN, [id number] 13:50:00 Test Item Value Reference Range Interpretation Comments BILIRUBIN DIRECT (BEAKER) (test 1.1 mg/dL 0.1-0.5 H code = 706) Hair Rooting Machine Operator ID - MARJ MPROTHROMBIN [id number] 13:30:00 Test Item Value Reference Range Interpretation Comments PROTIME (BEAKER) 14.9 seconds 11.9-14.2 H (test code = 759) INR (BEAKER) (test 1.20 See_Comment [Automat ed message] code = 370) The system [employer] generated this result transmitted ref erence range: <=5.90. The reference range was not used to int erpret this result as normal/abnormal . RECOMMENDED COUMADIN/WARFARIN INR THERAPY RANGESSTANDARD DOSE: 2.0 - 3.0 Includes: PROPHYLAXIS for venous thrombosis, systemic embolization; TREATMENT for venous thrombosis and/or pulmonary embolus.HIGH RISK: Target INR is 2.5-3.5 for patients with mechanical heart valves.CBC W/PLT COUNT & AUTO [id number] 13:25:00 Test Item Value Reference Range Interpretation [...] 0-1 PERCENT (BEAKER) (test code = 2801) CBC W/AUTO [id number] 00:00:00 Test Item Value Reference Range Interpretation Comments WBC (test code = 1001) 10.7 K/UL RBC (test code = 1002) 4.40 M/UL HEMOGLOBIN (test code = 1003) 14.5 G/DL HEMATOCRIT (test code = 1004) 42.2 % MCV (test code = 1005) 95.9 fL MCH (test code = 1006) 33.0 PG MCHC (test code = 1007) 34.4 G/DL RDW (test code = 1038) 11.7 % NEUTROPHILS (test code = 1008) 59.9 % LYMPHOCYTES (test code = 1010) 31.7 % MONOCYTES (test code = 1011) 7.5 % EOSINOPHILS (test code = 1012) 0.1 % BASOPHILS (test code = 1013) 0.8 % PLATELET COUNT (test code = 1015) 135 K/UL CBC W/AUTO [id number] 00:00:00 Test Item Value Reference Range Interpretation Comments WBC (test code = 1001) 10.7 K/UL RBC (test code = 1002) 4.40 M/UL HEMOGLOBIN (test code = 1003) 14.5 G/DL HEMATOCRIT (test code = 1004) 42.2 % MCV (test code = 1005) 95.9 fL MCH (test code = 1006) 33.0 PG MCHC (test code = 1007) 34.4 G/DL RDW (test code = 1038) 11.7 % NEUTROPHILS (test code = 1008) 59.9 % LYMPHOCYTES (test code = 1010) 31.7 % MONOCYTES (test code = 1011) 7.5 % EOSINOPHILS (test code = 1012) 0.1 % BASOPHILS (test code = 1013) 0.8 % PLATELET COUNT (test code = 1015) 135 K/UL CBC W/AUTO [id number] 00:00:00 Test Item Value Reference Range Interpretation Comments WBC (test code = 1001) 10.7 K/UL RBC (test code = 1002) 4.40 M/UL HEMOGLOBIN (test code = 1003) 14.5 G/DL HEMATOCRIT (test code = 1004) 42.2 % MCV (test code = 1005) 95.9 fL MCH (test code = 1006) 33.0 PG MCHC (test code = 1007) 34.4 G/DL RDW (test code = 1038) 11.7 % NEUTROPHILS (test code = 1008) 59.9 % LYMPHOCYTES (test code = 1010) 31.7 % MONOCYTES (test code = 1011) 7.5 % EOSINOPHILS (test code = 1012) 0.1 % BASOPHILS (test code = 1013) 0.8 % PLATELET COUNT (test code = 1015) 135 K/UL COMPREHENSIVE METABOLIC [id number] 00:00:00 Test Item Value Reference Range Interpretation Comments GLUCOSE (test code = 2217) 95 MG/DL BUN (test code = 2208) 8 MG/DL CREATININE (test code = 2214) 0.78 MG/DL eGFR AMER. (test code 97 ML/MIN/1.73 = 32717) eGFR NON- AMER. (test 84 ML/MIN/1.73 code = 51814) CALC BUN/CREAT (test code = 10 RATIO 2235) SODIUM (test code = 2231) 137 MEQ/L POTASSIUM (test code = 2228) 5.2 MEQ/L CHLORIDE (test code = 2215) 104 MEQ/L CARBON DIOXIDE (test code = 22 MEQ/L 2206) CALCIUM (test code = 2209) 10.1 MG/DL PROTEIN, TOTAL (test code = 8.5 G/DL 2228) ALBUMIN (test code = 2201) 4.4 G/DL CALC GLOBULIN (test code = 4.1 G/DL 2240) CALC A/G RATIO (test code = 1.1 RATIO 2234) BILIRUBIN, TOTAL (test code = 0.9 MG/DL 2206) ALKALINE PHOSPHATASE (test 130 U/L code = 2204) AST (test code = 2218) 109 U/L ALT (test code = 2219) 88 U/L COMPREHENSIVE METABOLIC [id number] 00:00:00 Test Item Value Reference Range Interpretation Comments GLUCOSE (test code = 2217) 95 MG/DL BUN (test code = 2208) 8 MG/DL CREATININE (test code = 2214) 0.78 MG/DL eGFR AMER. (test code 97 ML/MIN/1.73 = 48416) eGFR NON- AMER. (test 84 ML/MIN/1.73 code = 22898) CALC BUN/CREAT (test code = 10 RATIO 2235) SODIUM (test code = 2231) 137 MEQ/L POTASSIUM (test code = 2228) 5.2 MEQ/L CHLORIDE (test code = 2215) 104 MEQ/L CARBON DIOXIDE (test code = 22 MEQ/L 2205) CALCIUM (test code = 2209) 10.1 MG/DL PROTEIN, TOTAL (test code = 8.5 G/DL 2228) ALBUMIN (test code = 2201) 4.4 G/DL CALC GLOBULIN (test code = 4.1 G/DL 2239) CALC A/G RATIO (test code = 1.1 RATIO 2233) BILIRUBIN, TOTAL (test code = 0.9 MG/DL 2206) ALKALINE PHOSPHATASE (test 130 U/L code = 2204) AST (test code = 2218) 109 U/L ALT (test code = 2219) 88 U/L LIPID [id number] 00:00:00 Test Item Value Reference Range Interpretation Comments CHOLESTEROL (test code = 2210) 119 MG/DL TRIGLYCERIDES (test code = 2232) 140 MG/DL HDL CHOLESTEROL (test code = 2220) 32 MG/DL CALC LDL CHOL (test code = 2237) 65 MG/DL RISK RATIO LDL/HDL (test code = 2.03 RATIO 2238) LIPID [id number] 00:00:00 Test Item Value Reference Range Interpretation Comments CHOLESTEROL (test code = 2210) 119 MG/DL TRIGLYCERIDES (test code = 2232) 140 MG/DL HDL CHOLESTEROL (test code = 2220) 32 MG/DL CALC LDL CHOL (test code = 2237) 65 MG/DL RISK RATIO LDL/HDL (test code = 2.03 RATIO 2238) CBC W/AUTO [id number] 00:00:00 Test Item Value Reference Range Interpretation Comments WBC (test code = 1001) 6.0 K/UL RBC (test code = 1002) 4.37 M/UL HEMOGLOBIN (test code = 1003) 14.5 G/DL HEMATOCRIT (test code = 1004) 40.5 % MCV (test code = 1005) 92.7 fL MCH (test code = 1006) 33.2 PG MCHC (test code = 1007) 35.8 G/DL RDW (test code = 1038) 12.7 % NEUTROPHILS (test code = 1008) 45.9 % LYMPHOCYTES (test code = 1010) 41.5 % MONOCYTES (test code = 1011) 11.6 % EOSINOPHILS (test code = 1012) 0.2 % BASOPHILS (test code = 1013) 0.8 % PLATELET COUNT (test code = 1015) 81 K/UL CBC W/AUTO [id number] 00:00:00 Test Item Value Reference Range Interpretation Comments WBC (test code = 1001) 6.0 K/UL RBC (test code = 1002) 4.37 M/UL HEMOGLOBIN (test code = 1003) 14.5 G/DL HEMATOCRIT (test code = 1004) 40.5 % MCV (test code = 1005) 92.7 fL MCH (test code = 1006) 33.2 PG MCHC (test code = 1007) 35.8 G/DL RDW (test code = 1038) 12.7 % NEUTROPHILS (test code = 1008) 45.9 % LYMPHOCYTES (test code = 1010) 41.5 % MONOCYTES (test code = 1011) 11.6 % EOSINOPHILS (test code = 1012) 0.2 % BASOPHILS (test code = 1013) 0.8 % PLATELET COUNT (test code = 1015) 81 K/UL CBC W/AUTO [id number] 00:00:00 Test Item Value Reference Range Interpretation Comments WBC (test code = 1001) 6.0 K/UL RBC (test code = 1002) 4.37 M/UL HEMOGLOBIN (test code = 1003) 14.5 G/DL HEMATOCRIT (test code = 1004) 40.5 % MCV (test code = 1005) 92.7 fL MCH (test code = 1006) 33.2 PG MCHC (test code = 1007) 35.8 G/DL RDW (test code = 1038) 12.7 % NEUTROPHILS (test code = 1008) 45.9 % LYMPHOCYTES (test code = 1010) 41.5 % MONOCYTES (test code = 1011) 11.6 % EOSINOPHILS (test code = 1012) 0.2 % BASOPHILS (test code = 1013) 0.8 % PLATELET COUNT (test code = 1015) 81 K/UL LIPID [id number] 00:00:00 Test Item Value Reference Range Interpretation Comments CHOLESTEROL (test code = 2210) 131 MG/DL TRIGLYCERIDES (test code = 2232) 108 MG/DL HDL CHOLESTEROL (test code = 2220) 28 MG/DL CALC LDL CHOL (test code = 2237) 81 MG/DL RISK RATIO LDL/HDL (test code = 2.91 RATIO 2238) LIPID [id number] 00:00:00 Test Item Value Reference Range Interpretation Comments CHOLESTEROL (test code = 2210) 131 MG/DL TRIGLYCERIDES (test code = 2232) 108 MG/DL HDL CHOLESTEROL (test code = 2220) 28 MG/DL CALC LDL CHOL (test code = 2237) 81 MG/DL RISK RATIO LDL/HDL (test code = 2.91 RATIO 2238) COMPREHENSIVE METABOLIC [id number] 00:00:00 Test Item Value Reference Range Interpretation Comments GLUCOSE (test code = 2217) 85 MG/DL BUN (test code = 2208) 13 MG/DL CREATININE (test code = 2214) 0.78 MG/DL eGFR AMER. (test code 98 ML/MIN/1.73 = 43800) eGFR NON- AMER. (test 84 ML/MIN/1.73 code = 17087) CALC BUN/CREAT (test code = 17 RATIO 2235) SODIUM (test code = 2231) 143 MEQ/L POTASSIUM (test code = 2228) 4.5 MEQ/L CHLORIDE (test code = 2215) 105 MEQ/L CARBON DIOXIDE (test code = 24 MEQ/L 2205) CALCIUM (test code = 2209) 9.6 MG/DL PROTEIN, TOTAL (test code = 7.6 G/DL 2228) ALBUMIN (test code = 2201) 3.9 G/DL CALC GLOBULIN (test code = 3.7 G/DL 2239) CALC A/G RATIO (test code = 1.1 RATIO 2234) BILIRUBIN, TOTAL (test code = 0.7 MG/DL 2206) ALKALINE PHOSPHATASE (test 171 U/L code = 2204) AST (test code = 2218) 73 U/L ALT (test code = 2219) 54 U/L COMPREHENSIVE METABOLIC [id number] 00:00:00 Test Item Value Reference Range Interpretation Comments GLUCOSE (test code = 2217) 85 MG/DL BUN (test code = 2208) 13 MG/DL CREATININE (test code = 2214) 0.78 MG/DL eGFR AMER. (test code 98 ML/MIN/1.73 = 26820) eGFR NON- AMER. (test 84 ML/MIN/1.73 code = 49966) CALC BUN/CREAT (test code = 17 RATIO 2235) SODIUM (test code = 2231) 143 MEQ/L POTASSIUM (test code = 2228) 4.5 MEQ/L CHLORIDE (test code = 2215) 105 MEQ/L CARBON DIOXIDE (test code = 24 MEQ/L 2205) CALCIUM (test code = 2209) 9.6 MG/DL PROTEIN, TOTAL (test code = 7.6 G/DL 222) ALBUMIN (test code = 2201) 3.9 G/DL CALC GLOBULIN (test code = 3.7 G/DL 2240) CALC A/G RATIO (test code = 1.1 RATIO 2234) BILIRUBIN, TOTAL (test code = 0.7 MG/DL 2206) ALKALINE PHOSPHATASE (test 171 U/L code = 2204) AST (test code = 2218) 73 U/L ALT (test code = 2219) 54 U/L VAGINAL PATHOGENS DNA [id number] 00:00:00 Test Item Value Reference Range Interpretation Comments PILY SPECIES (test code = ) NEGATIVE G. VAGINALIS (test code = 06270) POSITIVE T. VAGINALIS (test code = 76642) NEGATIVE VAGINAL PATHOGENS DNA [id number] 00:00:00 Test Item Value Reference Range Interpretation Comments PILY SPECIES (test code = 13960) NEGATIVE G. VAGINALIS (test code = 50940) POSITIVE T. VAGINALIS (test code = 23549) NEGATIVE PAP TEST, THINPREP, [id number] 00:00:00 Test Item Value Reference Range Interpretation Comments SOURCE: (test code = Vaginal 8001) SLIDES: (test code = 1 8011) LMP: (test code = 8021) 2011 SPECIMEN ADEQUACY: (NOTE) (test code = 16338) INTERPRETATION: (test NILM/NO EPITH. code = 84120) ABNORMALITY;SEE BELOW PROCESS DEVELOPMENT TECHNICIAN: (test JOHN G. code = 8101) ANAND MARIE(ASCP) LOCATION: (test code = (NOTE) 27066) CPT: (test code = 8140) (NOTE) PAP TEST, THINPREP, [id number] 00:00:00 Test Item Value Reference Range Interpretation Comments SOURCE: (test code = Vaginal 8001) SLIDES: (test code = 1 8011) LMP: (test code = 8021) 2011 SPECIMEN ADEQUACY: (NOTE) (test code = 54788) INTERPRETATION: (test NILM/NO EPITH. code = 79099) ABNORMALITY;SEE BELOW PROCESS DEVELOPMENT TECHNICIAN: (test JOHN Palma. code = 8101) ANAND MARIE(ASCP) LOCATION: (test code = (NOTE) 06749) CPT: (test code = 8140) (NOTE) HPV HIGH RISK WITH GENOTYPE, [id number] 00:00:00 Test Item Value Reference Range Interpretation Comments HPV HIGH RISK INTERP (test code = NEGATIVE 39732) HPV 16 (test code = 99843) NEGATIVE HPV 18 (test code = 75189) NEGATIVE HPV, HR, OTHER GENOTYPES (test code NEGATIVE = 03187) HPV HIGH RISK WITH GENOTYPE, [id number] 00:00:00 Test Item Value Reference Range Interpretation Comments HPV HIGH RISK INTERP (test code = NEGATIVE 10163) HPV 16 (test code = 16036) NEGATIVE HPV 18 (test code = 10490) NEGATIVE HPV, HR, OTHER GENOTYPES (test code NEGATIVE = 05694) HEMOGLOBIN [id number] 00:00:00 Test Item Value Reference Range Interpretation Comments HEMOGLOBIN A1c (test code = 13280) 4.7 % HEMOGLOBIN [id number] 00:00:00 Test Item Value Reference Range Interpretation Comments HEMOGLOBIN A1c (test code = 71426) 4.7 % HEMOGLOBIN [id number] 00:00:00 Test Item Value Reference Range Interpretation Comments HEMOGLOBIN A1c (test code = 87091) 4.7 % CBC W/AUTO [id number] 00:00:00 Test Item Value Reference Range Interpretation Comments WBC (test code = 1001) 6.6 K/UL RBC (test code = 1002) 4.43 M/UL HEMOGLOBIN (test code = 1003) 15.0 G/DL HEMATOCRIT (test code = 1004) 41.9 % MCV (test code = 1005) 94.6 fL MCH (test code = 1006) 33.9 PG MCHC (test code = 1007) 35.8 G/DL RDW (test code = 1038) 12.9 % NEUTROPHILS (test code = 1008) 38.1 % LYMPHOCYTES (test code = 1010) 50.1 % MONOCYTES (test code = 1011) 9.3 % EOSINOPHILS (test code = 1012) 2.0 % BASOPHILS (test code = 1013) 0.5 % PLATELET COUNT (test code = 1015) 88 K/UL CBC W/AUTO [id number] 00:00:00 Test Item Value Reference Range Interpretation Comments WBC (test code = 1001) 6.6 K/UL RBC (test code = 1002) 4.43 M/UL HEMOGLOBIN (test code = 1003) 15.0 G/DL HEMATOCRIT (test code = 1004) 41.9 % MCV (test code = 1005) 94.6 fL MCH (test code = 1006) 33.9 PG MCHC (test code = 1007) 35.8 G/DL RDW (test code = 1038) 12.9 % NEUTROPHILS (test code = 1008) 38.1 % LYMPHOCYTES (test code = 1010) 50.1 % MONOCYTES (test code = 1011) 9.3 % EOSINOPHILS (test code = 1012) 2.0 % BASOPHILS (test code = 1013) 0.5 % PLATELET COUNT (test code = 1015) 88 K/UL CBC W/AUTO [id number] 00:00:00 Test Item Value Reference Range Interpretation Comments WBC (test code = 1001) 6.6 K/UL RBC (test code = 1002) 4.43 M/UL HEMOGLOBIN (test code = 1003) 15.0 G/DL HEMATOCRIT (test code = 1004) 41.9 % MCV (test code = 1005) 94.6 fL MCH (test code = 1006) 33.9 PG MCHC (test code = 1007) 35.8 G/DL RDW (test code = 1038) 12.9 % NEUTROPHILS (test code = 1008) 38.1 % LYMPHOCYTES (test code = 1010) 50.1 % MONOCYTES (test code = 1011) 9.3 % EOSINOPHILS (test code = 1012) 2.0 % BASOPHILS (test code = 1013) 0.5 % PLATELET COUNT (test code = 1015) 88 K/UL COMPREHENSIVE METABOLIC [id number] 00:00:00 Test Item Value Reference Range Interpretation Comments GLUCOSE (test code = 2217) 84 MG/DL BUN (test code = 2208) 11 MG/DL CREATININE (test code = 2214) 0.79 MG/DL eGFR AMER. (test code 97 ML/MIN/1.73 = 22629) eGFR NON- AMER. (test 84 ML/MIN/1.73 code = 15839) CALC BUN/CREAT (test code = 14 RATIO 2235) SODIUM (test code = 2231) 143 MEQ/L POTASSIUM (test code = 2228) 5.6 MEQ/L CHLORIDE (test code = 2215) 107 MEQ/L CARBON DIOXIDE (test code = 26 MEQ/L 2205) CALCIUM (test code = 2209) 8.9 MG/DL PROTEIN, TOTAL (test code = 7.0 G/DL 2228) ALBUMIN (test code = 2201) 3.4 G/DL CALC GLOBULIN (test code = 3.6 G/DL 0) CALC A/G RATIO (test code = 0.9 RATIO 4) BILIRUBIN, TOTAL (test code = 0.9 MG/DL 2206) ALKALINE PHOSPHATASE (test 112 U/L code = 2204) AST (test code = 2218) 63 U/L ALT (test code = 2219) 45 U/L COMPREHENSIVE METABOLIC [id number] 00:00:00 Test Item Value Reference Range Interpretation Comments GLUCOSE (test code = 2217) 84 MG/DL BUN (test code = 2208) 11 MG/DL CREATININE (test code = 2214) 0.79 MG/DL eGFR AMER. (test code 97 ML/MIN/1.73 = 31190) eGFR NON- AMER. (test 84 ML/MIN/1.73 code = 06611) CALC BUN/CREAT (test code = 14 RATIO 2235) SODIUM (test code = 2231) 143 MEQ/L POTASSIUM (test code = 2228) 5.6 MEQ/L CHLORIDE (test code = 2215) 107 MEQ/L CARBON DIOXIDE (test code = 26 MEQ/L 2205) CALCIUM (test code = 2209) 8.9 MG/DL PROTEIN, TOTAL (test code = 7.0 G/DL 2228) ALBUMIN (test code = 2201) 3.4 G/DL CALC GLOBULIN (test code = 3.6 G/DL 2240) CALC A/G RATIO (test code = 0.9 RATIO 2234) BILIRUBIN, TOTAL (test code = 0.9 MG/DL 2206) ALKALINE PHOSPHATASE (test 112 U/L code = 2204) AST (test code = 2218) 63 U/L ALT (test code = 2219) 45 U/L LIPID [id number] 00:00:00 Test Item Value Reference Range Interpretation Comments CHOLESTEROL (test code = 2210) 132 MG/DL TRIGLYCERIDES (test code = 2232) 125 MG/DL HDL CHOLESTEROL (test code = 2220) 24 MG/DL CALC LDL CHOL (test code = 2237) 83 MG/DL RISK RATIO LDL/HDL (test code = 3.46 RATIO 2238) LIPID [id number] 00:00:00 Test Item Value Reference Range Interpretation Comments CHOLESTEROL (test code = 2210) 132 MG/DL TRIGLYCERIDES (test code = 2232) 125 MG/DL HDL CHOLESTEROL (test code = 2220) 24 MG/DL CALC LDL CHOL (test code = 2237) 83 MG/DL RISK RATIO LDL/HDL (test code = 3.46 RATIO 2238) HCV RNA, PCR QUANT [REFLEX][id number] 00:00:00 Test Item Value Reference Range Interpretation Comments HCV RNA, PCR QUANT (test code 8614624 IU/ML = 4571) HCV VIRAL LOG (test code = 6.932 LOGIU/ML 46924) HCV RNA, PCR QUANT [REFLEX][id number] 00:00:00 Test Item Value Reference Range Interpretation Comments HCV RNA, PCR QUANT (test code 9617104 IU/ML = 4571) HCV VIRAL LOG (test code = 6.932 LOGIU/ML 33407) HCV RNA, PCR QUANT [REFLEX]2017-12-18 00:00:00 Test Item Value Reference Range Interpretation Comments HCV RNA, PCR QUANT (test code 7978064 IU/ML = 4571) HCV VIRAL LOG (test code = 6.932 LOGIU/ML 72850) CBC W/AUTO [id number] 00:00:00 Test Item Value Reference Range Interpretation Comments WBC (test code = 1001) 7.1 K/UL RBC (test code = 1002) 4.77 M/UL HEMOGLOBIN (test code = 1003) 15.5 G/DL HEMATOCRIT (test code = 1004) 44.0 % MCV (test code = 1005) 92.2 fL MCH (test code = 1006) 32.5 PG MCHC (test code = 1007) 35.2 G/DL RDW (test code = 1038) 13.2 % NEUTROPHILS (test code = 1008) 59.8 % LYMPHOCYTES (test code = 1010) 29.0 % MONOCYTES (test code = 1011) 10.6 % EOSINOPHILS (test code = 1012) 0.0 % BASOPHILS (test code = 1013) 0.6 % PLATELET COUNT (test code = 1015) 90 K/UL COMMENTS (test code = 1016) (NOTE) CBC W/AUTO [id number] 00:00:00 Test Item Value Reference Range Interpretation Comments WBC (test code = 1001) 7.1 K/UL RBC (test code = 1002) 4.77 M/UL HEMOGLOBIN (test code = 1003) 15.5 G/DL HEMATOCRIT (test code = 1004) 44.0 % MCV (test code = 1005) 92.2 fL MCH (test code = 1006) 32.5 PG MCHC (test code = 1007) 35.2 G/DL RDW (test code = 1038) 13.2 % NEUTROPHILS (test code = 1008) 59.8 % LYMPHOCYTES (test code = 1010) 29.0 % MONOCYTES (test code = 1011) 10.6 % EOSINOPHILS (test code = 1012) 0.0 % BASOPHILS (test code = 1013) 0.6 % PLATELET COUNT (test code = 1015) 90 K/UL COMMENTS (test code = 1016) (NOTE) CBC W/AUTO [id number] 00:00:00 Test Item Value Reference Range Interpretation Comments WBC (test code = 1001) 7.1 K/UL RBC (test code = 1002) 4.77 M/UL HEMOGLOBIN (test code = 1003) 15.5 G/DL HEMATOCRIT (test code = 1004) 44.0 % MCV (test code = 1005) 92.2 fL MCH (test code = 1006) 32.5 PG MCHC (test code = 1007) 35.2 G/DL RDW (test code = 1038) 13.2 % NEUTROPHILS (test code = 1008) 59.8 % LYMPHOCYTES (test code = 1010) 29.0 % MONOCYTES (test code = 1011) 10.6 % EOSINOPHILS (test code = 1012) 0.0 % BASOPHILS (test code = 1013) 0.6 % PLATELET COUNT (test code = 1015) 90 K/UL COMMENTS (test code = 1016) (NOTE) COMPREHENSIVE METABOLIC [id number] 00:00:00 Test Item Value Reference Range Interpretation Comments GLUCOSE (test code = 2217) 109 MG/DL BUN (test code = 2208) 14 MG/DL CREATININE (test code = 2214) 0.73 MG/DL eGFR AMER. (test code 107 ML/MIN/1.73 = 87015) eGFR NON- AMER. (test 93 ML/MIN/1.73 code = 12890) CALC BUN/CREAT (test code = 19 RATIO 2235) SODIUM (test code = 2231) 142 MEQ/L POTASSIUM (test code = 2228) 5.0 MEQ/L CHLORIDE (test code = 2215) 99 MEQ/L CARBON DIOXIDE (test code = 27 MEQ/L 2205) CALCIUM (test code = 2209) 9.6 MG/DL PROTEIN, TOTAL (test code = 8.0 G/DL 2228) ALBUMIN (test code = 2201) 3.8 G/DL CALC GLOBULIN (test code = 4.2 G/DL 2240) CALC A/G RATIO (test code = 0.9 RATIO 2234) BILIRUBIN, TOTAL (test code = 0.7 MG/DL 220) ALKALINE PHOSPHATASE (test 163 U/L code = 2204) AST (test code = 2218) 85 U/L ALT (test code = 2219) 57 U/L COMPREHENSIVE METABOLIC [id number] 00:00:00 Test Item Value Reference Range Interpretation Comments GLUCOSE (test code = 2217) 109 MG/DL BUN (test code = 2208) 14 MG/DL CREATININE (test code = 2214) 0.73 MG/DL eGFR AMER. (test code 107 ML/MIN/1.73 = 22227) eGFR NON- AMER. (test 93 ML/MIN/1.73 code = 76030) CALC BUN/CREAT (test code = 19 RATIO 2235) SODIUM (test code = 2231) 142 MEQ/L POTASSIUM (test code = 2228) 5.0 MEQ/L CHLORIDE (test code = 2215) 99 MEQ/L CARBON DIOXIDE (test code = 27 MEQ/L 220) CALCIUM (test code = 2209) 9.6 MG/DL PROTEIN, TOTAL (test code = 8.0 G/DL 2228) ALBUMIN (test code = 2201) 3.8 G/DL CALC GLOBULIN (test code = 4.2 G/DL 224) CALC A/G RATIO (test code = 0.9 RATIO 2233) BILIRUBIN, TOTAL (test code = 0.7 MG/DL 2206) ALKALINE PHOSPHATASE (test 163 U/L code = 2204) AST (test code = 2218) 85 U/L ALT (test code = 2219) 57 U/L LIPID [id number] 00:00:00 Test Item Value Reference Range Interpretation Comments CHOLESTEROL (test code = 2210) 153 MG/DL TRIGLYCERIDES (test code = 2232) 239 MG/DL HDL CHOLESTEROL (test code = 2220) 27 MG/DL CALC LDL CHOL (test code = 2237) 78 MG/DL RISK RATIO LDL/HDL (test code = 2.90 RATIO 2238) LIPID [id number] 00:00:00 Test Item Value Reference Range Interpretation Comments CHOLESTEROL (test code = 2210) 153 MG/DL TRIGLYCERIDES (test code = 2232) 239 MG/DL HDL CHOLESTEROL (test code = 2220) 27 MG/DL CALC LDL CHOL (test code = 2237) 78 MG/DL RISK RATIO LDL/HDL (test code = 2.90 RATIO 2238) HEPATITIS C REFLEX [id number] 00:00:00 Test Item Value Reference Range Interpretation Comments HEPATITIS C ANTIBODY (test code = REACTIVE 4675) HEPATITIS C REFLEX [id number] 00:00:00 Test Item Value Reference Range Interpretation Comments HEPATITIS C ANTIBODY (test code = REACTIVE 4675) COMPREHENSIVE METABOLIC [id number] 00:00:00 Test Item Value Reference Range Interpretation Comments GLUCOSE (test code = 2217) 102 MG/DL BUN (test code = 2208) 17 MG/DL CREATININE (test code = 2214) 0.64 MG/DL eGFR AMER. (test code 116 ML/MIN/1.73 = 31367) eGFR NON- AMER. (test 100 ML/MIN/1.73 code = 11942) CALC BUN/CREAT (test code = 27 RATIO 2235) SODIUM (test code = 2231) 145 MEQ/L POTASSIUM (test code = 2228) 4.8 MEQ/L CHLORIDE (test code = 2215) 108 MEQ/L CARBON DIOXIDE (test code = 26 MEQ/L 2206) CALCIUM (test code = 2209) 9.1 MG/DL PROTEIN, TOTAL (test code = 6.6 G/DL 2228) ALBUMIN (test code = 2201) 3.5 G/DL CALC GLOBULIN (test code = 3.1 G/DL 2240) CALC A/G RATIO (test code = 1.1 RATIO 2234) BILIRUBIN, TOTAL (test code = 0.6 MG/DL 2206) ALKALINE PHOSPHATASE (test 177 U/L code = 2204) AST (test code = 2218) 78 U/L ALT (test code = 2219) 54 U/L COMPREHENSIVE METABOLIC [id number] 00:00:00 Test Item Value Reference Range Interpretation Comments GLUCOSE (test code = 2217) 102 MG/DL BUN (test code = 2208) 17 MG/DL CREATININE (test code = 2214) 0.64 MG/DL eGFR AMER. (test code 116 ML/MIN/1.73 = 12217) eGFR NON- AMER. (test 100 ML/MIN/1.73 code = 63941) CALC BUN/CREAT (test code = 27 RATIO 2235) SODIUM (test code = 2231) 145 MEQ/L POTASSIUM (test code = 2228) 4.8 MEQ/L CHLORIDE (test code = 2215) 108 MEQ/L CARBON DIOXIDE (test code = 26 MEQ/L 2206) CALCIUM (test code = 2209) 9.1 MG/DL PROTEIN, TOTAL (test code = 6.6 G/DL 222) ALBUMIN (test code = 2201) 3.5 G/DL CALC GLOBULIN (test code = 3.1 G/DL 2240) CALC A/G RATIO (test code = 1.1 RATIO 2234) BILIRUBIN, TOTAL (test code = 0.6 MG/DL 2207) ALKALINE PHOSPHATASE (test 177 U/L code = 2204) AST (test code = 2218) 78 U/L ALT (test code = 2219) 54 U/L LIPID [id number] 00:00:00 Test Item Value Reference Range Interpretation Comments CHOLESTEROL (test code = 2210) 126 MG/DL TRIGLYCERIDES (test code = 2232) 127 MG/DL HDL CHOLESTEROL (test code = 2220) 29 MG/DL CALC LDL CHOL (test code = 2237) 72 MG/DL RISK RATIO LDL/HDL (test code = 2.47 RATIO 2238) LIPID [id number] 00:00:00 Test Item Value Reference Range Interpretation Comments CHOLESTEROL (test code = 2210) 126 MG/DL TRIGLYCERIDES (test code = 2232) 127 MG/DL HDL CHOLESTEROL (test code = 2220) 29 MG/DL CALC LDL CHOL (test code = 2237) 72 MG/DL RISK RATIO LDL/HDL (test code = 2.47 RATIO 2238) CBC W/AUTO [id number] 00:00:00 Test Item Value Reference Range Interpretation Comments WBC (test code = 1001) 4.7 K/UL RBC (test code = 1002) 4.02 M/UL HEMOGLOBIN (test code = 1003) 13.3 G/DL HEMATOCRIT (test code = 1004) 38.1 % MCV (test code = 1005) 94.8 fL MCH (test code = 1006) 33.1 PG MCHC (test code = 1007) 34.9 G/DL RDW (test code = 1038) 12.8 % NEUTROPHILS (test code = 1008) 47.3 % LYMPHOCYTES (test code = 1010) 40.0 % MONOCYTES (test code = 1011) 12.3 % EOSINOPHILS (test code = 1012) 0.0 % BASOPHILS (test code = 1013) 0.4 % PLATELET COUNT (test code = 1015) 79 K/UL COMMENTS (test code = 1016) (NOTE) CBC W/AUTO [id number] 00:00:00 Test Item Value Reference Range Interpretation Comments WBC (test code = 1001) 4.7 K/UL RBC (test code = 1002) 4.02 M/UL HEMOGLOBIN (test code = 1003) 13.3 G/DL HEMATOCRIT (test code = 1004) 38.1 % MCV (test code = 1005) 94.8 fL MCH (test code = 1006) 33.1 PG MCHC (test code = 1007) 34.9 G/DL RDW (test code = 1038) 12.8 % NEUTROPHILS (test code = 1008) 47.3 % LYMPHOCYTES (test code = 1010) 40.0 % MONOCYTES (test code = 1011) 12.3 % EOSINOPHILS (test code = 1012) 0.0 % BASOPHILS (test code = 1013) 0.4 % PLATELET COUNT (test code = 1015) 79 K/UL COMMENTS (test code = 1016) (NOTE) CBC W/AUTO [id number] 00:00:00 Test Item Value Reference Range Interpretation Comments WBC (test code = 1001) 4.7 K/UL RBC (test code = 1002) 4.02 M/UL HEMOGLOBIN (test code = 1003) 13.3 G/DL HEMATOCRIT (test code = 1004) 38.1 % MCV (test code = 1005) 94.8 fL MCH (test code = 1006) 33.1 PG MCHC (test code = 1007) 34.9 G/DL RDW (test code = 1038) 12.8 % NEUTROPHILS (test code = 1008) 47.3 % LYMPHOCYTES (test code = 1010) 40.0 % MONOCYTES (test code = 1011) 12.3 % EOSINOPHILS (test code = 1012) 0.0 % BASOPHILS (test code = 1013) 0.4 % PLATELET COUNT (test code = 1015) 79 K/UL COMMENTS (test code = 1016) (NOTE) PATHOLOGIST SMEAR [id number] 00:00:00 Test Item Value Reference Range Interpretation Comments DIAGNOSIS: (test code = 8200) (NOTE) COMMENTS: (test code = 8205) (NOTE) MICROSCOPIC DESCRIPTION: (test code (NOTE) = 8210) PATHOLOGIST: (test code = 8250) (NOTE) WBC (test code = 1001) 5.1 K/UL RBC (test code = 1002) 4.43 M/UL HEMOGLOBIN (test code = 1003) 15.0 G/DL HEMATOCRIT (test code = 1004) 42.0 % MCV (test code = 1005) 94.8 fL MCH (test code = 1006) 33.9 PG MCHC (test code = 1007) 35.7 G/DL RDW (test code = 1038) 13.0 % NEUTROPHILS (test code = 1008) 31.3 % LYMPHOCYTES (test code = 1010) 50.3 % MONOCYTES (test code = 1011) 17.2 % EOSINOPHILS (test code = 1012) 0.6 % BASOPHILS (test code = 1013) 0.6 % PLATELET COUNT (test code = 1015) 73 K/UL COMMENTS (test code = 1016) (NOTE) PATHOLOGIST SMEAR [id number] 00:00:00 Test Item Value Reference Range Interpretation Comments DIAGNOSIS: (test code = 8200) (NOTE) COMMENTS: (test code = 8205) (NOTE) MICROSCOPIC DESCRIPTION: (test code (NOTE) = 8210) PATHOLOGIST: (test code = 8250) (NOTE) WBC (test code = 1001) 5.1 K/UL RBC (test code = 1002) 4.43 M/UL HEMOGLOBIN (test code = 1003) 15.0 G/DL HEMATOCRIT (test code = 1004) 42.0 % MCV (test code = 1005) 94.8 fL MCH (test code = 1006) 33.9 PG MCHC (test code = 1007) 35.7 G/DL RDW (test code = 1038) 13.0 % NEUTROPHILS (test code = 1008) 31.3 % LYMPHOCYTES (test code = 1010) 50.3 % MONOCYTES (test code = 1011) 17.2 % EOSINOPHILS (test code = 1012) 0.6 % BASOPHILS (test code = 1013) 0.6 % PLATELET COUNT (test code = 1015) 73 K/UL COMMENTS (test code = 1016) (NOTE) LEUKEMIA/LYMPHOMA [id number] 00:00:00 Test Item Value Reference Range Interpretation Comments FLOW CYTOMETRY (test code = 22674) (NOTE) PATHOLOGIST: (test code = 8250) (NOTE) DISCLAIMER (test code = 50445) (NOTE) CPT: (test code = 662949) (NOTE) NUMBER OF SITES (test code = 42286) (NOTE) LEUKEMIA/LYMPHOMA [id number] 00:00:00 Test Item Value Reference Range Interpretation Comments FLOW CYTOMETRY (test code = 40318) (NOTE) PATHOLOGIST: (test code = 8250) (NOTE) DISCLAIMER (test code = 51692) (NOTE) CPT: (test code = 589712) (NOTE) NUMBER OF SITES (test code = 47465) (NOTE) SEDIMENTATION [id number] 00:00:00 Test Item Value Reference Range Interpretation Comments SEDIMENTATION RATE (test code = 7 MM/HOUR 1017) SEDIMENTATION [id number] 00:00:00 Test Item Value Reference Range Interpretation Comments SEDIMENTATION RATE (test code = 7 MM/HOUR 1017) CBC W/AUTO [id number] 00:00:00 Test Item Value Reference Range Interpretation Comments WBC (test code = 1001) 6.2 K/UL RBC (test code = 1002) 4.71 M/UL HEMOGLOBIN (test code = 1003) 15.7 G/DL HEMATOCRIT (test code = 1004) 45.8 % MCV (test code = 1005) 97.2 fL MCH (test code = 1006) 33.3 PG MCHC (test code = 1007) 34.3 G/DL RDW (test code = 1038) 13.0 % NEUTROPHILS (test code = 1008) 31.5 % LYMPHOCYTES (test code = 1010) 54.7 % MONOCYTES (test code = 1011) 13.5 % EOSINOPHILS (test code = 1012) 0.0 % BASOPHILS (test code = 1013) 0.3 % PLATELET COUNT (test code = 1015) 103 K/UL CBC W/AUTO [id number] 00:00:00 Test Item Value Reference Range Interpretation Comments WBC (test code = 1001) 6.2 K/UL RBC (test code = 1002) 4.71 M/UL HEMOGLOBIN (test code = 1003) 15.7 G/DL HEMATOCRIT (test code = 1004) 45.8 % MCV (test code = 1005) 97.2 fL MCH (test code = 1006) 33.3 PG MCHC (test code = 1007) 34.3 G/DL RDW (test code = 1038) 13.0 % NEUTROPHILS (test code = 1008) 31.5 % LYMPHOCYTES (test code = 1010) 54.7 % MONOCYTES (test code = 1011) 13.5 % EOSINOPHILS (test code = 1012) 0.0 % BASOPHILS (test code = 1013) 0.3 % PLATELET COUNT (test code = 1015) 103 K/UL CBC W/AUTO [id number] 00:00:00 Test Item Value Reference Range Interpretation Comments WBC (test code = 1001) 6.2 K/UL RBC (test code = 1002) 4.71 M/UL HEMOGLOBIN (test code = 1003) 15.7 G/DL HEMATOCRIT (test code = 1004) 45.8 % MCV (test code = 1005) 97.2 fL MCH (test code = 1006) 33.3 PG MCHC (test code = 1007) 34.3 G/DL RDW (test code = 1038) 13.0 % NEUTROPHILS (test code = 1008) 31.5 % LYMPHOCYTES (test code = 1010) 54.7 % MONOCYTES (test code = 1011) 13.5 % EOSINOPHILS (test code = 1012) 0.0 % BASOPHILS (test code = 1013) 0.3 % PLATELET COUNT (test code = 1015) 103 K/UL CBC W/AUTO [id number] 00:00:00 Test Item Value Reference Range Interpretation Comments WBC (test code = TEST NOT PERFORMED K/UL 1001) CBC W/AUTO [id number] 00:00:00 Test Item Value Reference Range Interpretation Comments WBC (test code = TEST NOT PERFORMED K/UL 1001) CBC W/AUTO [id number] 00:00:00 Test Item Value Reference Range Interpretation Comments WBC (test code = TEST NOT PERFORMED K/UL 1001) PAP TEST, THINPREP, [id number] 00:00:00 Test Item Value Reference Range Interpretation Comments SOURCE: (test code = A) Cervical/Endocervical 8001) SLIDES: (test code = 1 8011) LMP: (test code = 8021) SPECIMEN ADEQUACY: (NOTE) (test code = 08760) INTERPRETATION: (test NO EPITHELIAL code = 62900) ABNORMALITY SEE BELOW PROCESS DEVELOPMENT TECHNICIAN: ANAND CALHOUN(ASCP) (test code = 8101) LOCATION: (test code (NOTE) = 15772) CPT: (test code = (NOTE) 8140) PAP TEST, THINPREP, [id number] 00:00:00 Test Item Value Reference Range Interpretation Comments SOURCE: (test code = A) Cervical/Endocervical 8001) SLIDES: (test code = 1 8011) LMP: (test code = 8021) SPECIMEN ADEQUACY: (NOTE) (test code = 60842) INTERPRETATION: (test NO EPITHELIAL code = 57419) ABNORMALITY SEE BELOW PROCESS DEVELOPMENT TECHNICIAN: ANAND CALHOUN(ASCP) (test code = 8101) LOCATION: (test code (NOTE) = 59112) CPT: (test code = (NOTE) 8140) HPV HIGH RISK WITH GENOTYPE, [id number] 00:00:00 Test Item Value Reference Range Interpretation Comments HPV HIGH RISK INTERP (test code = NEGATIVE 55200) HPV 16 (test code = 68183) NEGATIVE HPV 18 (test code = 35924) NEGATIVE HPV, HR, OTHER GENOTYPES (test code NEGATIVE = 02907) HPV HIGH RISK WITH GENOTYPE, [id number] 00:00:00 Test Item Value Reference Range Interpretation Comments HPV HIGH RISK INTERP (test code = NEGATIVE 15486) HPV 16 (test code = 73589) NEGATIVE HPV 18 (test code = 47652) NEGATIVE HPV, HR, OTHER GENOTYPES (test code NEGATIVE = 46993) CBC W/AUTO [id number] 00:00:00 Test Item Value Reference Range Interpretation Comments WBC (test code = 1001) 5.1 K/UL RBC (test code = 1002) 4.83 M/UL HEMOGLOBIN (test code = 1003) 16.4 G/DL HEMATOCRIT (test code = 1004) 47.0 % MCV (test code = 1005) 97.3 fL MCH (test code = 1006) 34.0 PG MCHC (test code = 1007) 34.9 G/DL RDW (test code = 1038) 13.7 % NEUTROPHILS (test code = 1008) 46 % LYMPHOCYTES (test code = 1010) 37 % MONOCYTES (test code = 1011) 15 % EOSINOPHILS (test code = 1012) 2 % BASOPHILS (test code = 1013) % PLATELET COUNT (test code = 1015) 107 K/UL CBC W/AUTO [id number] 00:00:00 Test Item Value Reference Range Interpretation Comments WBC (test code = 1001) 5.1 K/UL RBC (test code = 1002) 4.83 M/UL HEMOGLOBIN (test code = 1003) 16.4 G/DL HEMATOCRIT (test code = 1004) 47.0 % MCV (test code = 1005) 97.3 fL MCH (test code = 1006) 34.0 PG MCHC (test code = 1007) 34.9 G/DL RDW (test code = 1038) 13.7 % NEUTROPHILS (test code = 1008) 46 % LYMPHOCYTES (test code = 1010) 37 % MONOCYTES (test code = 1011) 15 % EOSINOPHILS (test code = 1012) 2 % BASOPHILS (test code = 1013) % PLATELET COUNT (test code = 1015) 107 K/UL CBC W/AUTO [id number] 00:00:00 Test Item Value Reference Range Interpretation Comments WBC (test code = 1001) 5.1 K/UL RBC (test code = 1002) 4.83 M/UL HEMOGLOBIN (test code = 1003) 16.4 G/DL HEMATOCRIT (test code = 1004) 47.0 % MCV (test code = 1005) 97.3 fL MCH (test code = 1006) 34.0 PG MCHC (test code = 1007) 34.9 G/DL RDW (test code = 1038) 13.7 % NEUTROPHILS (test code = 1008) 46 % LYMPHOCYTES (test code = 1010) 37 % MONOCYTES (test code = 1011) 15 % EOSINOPHILS (test code = 1012) 2 % BASOPHILS (test code = 1013) % PLATELET COUNT (test code = 1015) 107 K/UL COMPREHENSIVE METABOLIC [id number] 00:00:00 Test Item Value Reference Range Interpretation Comments GLUCOSE (test code = 2217) 177 MG/DL BUN (test code = 2208) 9 MG/DL CREATININE (test code = 2214) 0.86 MG/DL eGFR AMER. (test code 89 ML/MIN/1.73 = 69122) eGFR NON- AMER. (test 77 ML/MIN/1.73 code = 77981) CALC BUN/CREAT (test code = 10 RATIO 2235) SODIUM (test code = 2231) 137 MEQ/L POTASSIUM (test code = 2228) 4.0 MEQ/L CHLORIDE (test code = 2215) 102 MEQ/L CARBON DIOXIDE (test code = 27 MEQ/L 2205) CALCIUM (test code = 2209) 9.3 MG/DL PROTEIN, TOTAL (test code = 7.4 G/DL 2228) ALBUMIN (test code = 2201) 3.4 G/DL CALC GLOBULIN (test code = 4.0 G/DL 2240) CALC A/G RATIO (test code = 0.9 RATIO 2234) BILIRUBIN, TOTAL (test code = 1.4 MG/DL 2206) ALKALINE PHOSPHATASE (test 115 U/L code = 2204) AST (test code = 2218) 82 U/L ALT (test code = 2219) 50 U/L COMPREHENSIVE METABOLIC [id number] 00:00:00 Test Item Value Reference Range Interpretation Comments GLUCOSE (test code = 2217) 177 MG/DL BUN (test code = 2208) 9 MG/DL CREATININE (test code = 2214) 0.86 MG/DL eGFR AMER. (test code 89 ML/MIN/1.73 = 68820) eGFR NON- AMER. (test 77 ML/MIN/1.73 code = 94102) CALC BUN/CREAT (test code = 10 RATIO 2235) SODIUM (test code = 2231) 137 MEQ/L POTASSIUM (test code = 2228) 4.0 MEQ/L CHLORIDE (test code = 2215) 102 MEQ/L CARBON DIOXIDE (test code = 27 MEQ/L 2205) CALCIUM (test code = 2209) 9.3 MG/DL PROTEIN, TOTAL (test code = 7.4 G/DL 2228) ALBUMIN (test code = 2201) 3.4 G/DL CALC GLOBULIN (test code = 4.0 G/DL 2240) CALC A/G RATIO (test code = 0.9 RATIO 2234) BILIRUBIN, TOTAL (test code = 1.4 MG/DL 2206) ALKALINE PHOSPHATASE (test 115 U/L code = 2204) AST (test code = 2218) 82 U/L ALT (test code = 2219) 50 U/L COMPREHENSIVE METABOLIC [id number] 00:00:00 Test Item Value Reference Range Interpretation Comments GLUCOSE (test code = 2217) 123 MG/DL BUN (test code = 2208) 10 MG/DL CREATININE (test code = 2214) 0.74 MG/DL eGFR AMER. (test code 107 ML/MIN/1.73 = 33492) eGFR NON- AMER. (test 92 ML/MIN/1.73 code = 44767) CALCULATED BUN/CREAT (test 14 RATIO code = 2235) SODIUM (test code = 2231) 140 MEQ/L POTASSIUM (test code = 2228) 4.4 MEQ/L CHLORIDE (test code = 2215) 102 MEQ/L CARBON DIOXIDE (test code = 20 MEQ/L 220) CALCIUM (test code = 2209) 9.8 MG/DL PROTEIN, TOTAL (test code = 7.7 G/DL 2228) ALBUMIN (test code = 2201) 3.7 G/DL CALCULATED GLOBULIN (test 4.0 G/DL code = 2240) CALCULATED A/G RATIO (test 0.9 RATIO code = 2234) BILIRUBIN, TOTAL (test code = 0.8 MG/DL 2206) ALKALINE PHOSPHATASE (test 91 U/L code = 2204) SGOT (AST) (test code = 2218) 59 U/L SGPT (ALT) (test code = 2219) 45 U/L COMPREHENSIVE METABOLIC [id number] 00:00:00 Test Item Value Reference Range Interpretation Comments GLUCOSE (test code = 2217) 123 MG/DL BUN (test code = 2208) 10 MG/DL CREATININE (test code = 2214) 0.74 MG/DL eGFR AMER. (test code 107 ML/MIN/1.73 = 37016) eGFR NON- AMER. (test 92 ML/MIN/1.73 code = 75518) CALCULATED BUN/CREAT (test 14 RATIO code = 2235) SODIUM (test code = 2231) 140 MEQ/L POTASSIUM (test code = 2228) 4.4 MEQ/L CHLORIDE (test code = 2215) 102 MEQ/L CARBON DIOXIDE (test code = 20 MEQ/L 2205) CALCIUM (test code = 2209) 9.8 MG/DL PROTEIN, TOTAL (test code = 7.7 G/DL 2228) ALBUMIN (test code = 2201) 3.7 G/DL CALCULATED GLOBULIN (test 4.0 G/DL code = 2240) CALCULATED A/G RATIO (test 0.9 RATIO code = 2234) BILIRUBIN, TOTAL (test code = 0.8 MG/DL 2206) ALKALINE PHOSPHATASE (test 91 U/L code = 2204) SGOT (AST) (test code = 2218) 59 U/L SGPT (ALT) (test code = 2219) 45 U/L LIPID [id number] 00:00:00 Test Item Value Reference Range Interpretation Comments CHOLESTEROL (test code = 2210) 170 MG/DL TRIGLYCERIDES (test code = 2232) 170 MG/DL HDL CHOLESTEROL (test code = 2220) 41 MG/DL CALCULATED LDL CHOL (test code = 95 MG/DL 2237) RISK RATIO LDL/HDL (test code = 2.32 RATIO 2238) LIPID [id number] 00:00:00 Test Item Value Reference Range Interpretation Comments CHOLESTEROL (test code = 2210) 170 MG/DL TRIGLYCERIDES (test code = 2232) 170 MG/DL HDL CHOLESTEROL (test code = 2220) 41 MG/DL CALCULATED LDL CHOL (test code = 95 MG/DL 2237) RISK RATIO LDL/HDL (test code = 2.32 RATIO 2238) CBC W/AUTO [id number] 00:00:00 Test Item Value Reference Range Interpretation Comments WBC (test code = 1001) 5.6 K/UL RBC (test code = 1002) 4.97 M/UL HEMOGLOBIN (test code = 1003) 15.6 G/DL HEMATOCRIT (test code = 1004) 45.3 % MCV (test code = 1005) 91.1 fL MCH (test code = 1006) 31.4 PG MCHC (test code = 1007) 34.4 G/DL RDW (test code = 1038) 13.9 % NEUTROPHILS (test code = 1008) 51 % LYMPHOCYTES (test code = 1010) 38 % MONOCYTES (test code = 1011) 11 % EOSINOPHILS (test code = 1012) % BASOPHILS (test code = 1013) % PLATELET COUNT (test code = 1015) 116 K/UL CBC W/AUTO [id number] 00:00:00 Test Item Value Reference Range Interpretation Comments WBC (test code = 1001) 5.6 K/UL RBC (test code = 1002) 4.97 M/UL HEMOGLOBIN (test code = 1003) 15.6 G/DL HEMATOCRIT (test code = 1004) 45.3 % MCV (test code = 1005) 91.1 fL MCH (test code = 1006) 31.4 PG MCHC (test code = 1007) 34.4 G/DL RDW (test code = 1038) 13.9 % NEUTROPHILS (test code = 1008) 51 % LYMPHOCYTES (test code = 1010) 38 % MONOCYTES (test code = 1011) 11 % EOSINOPHILS (test code = 1012) % BASOPHILS (test code = 1013) % PLATELET COUNT (test code = 1015) 116 K/UL CBC W/AUTO [id number] 00:00:00 Test Item Value Reference Range Interpretation Comments WBC (test code = 1001) 5.6 K/UL RBC (test code = 1002) 4.97 M/UL HEMOGLOBIN (test code = 1003) 15.6 G/DL HEMATOCRIT (test code = 1004) 45.3 % MCV (test code = 1005) 91.1 fL MCH (test code = 1006) 31.4 PG MCHC (test code = 1007) 34.4 G/DL RDW (test code = 1038) 13.9 % NEUTROPHILS (test code = 1008) 51 % LYMPHOCYTES (test code = 1010) 38 % MONOCYTES (test code = 1011) 11 % EOSINOPHILS (test code = 1012) % BASOPHILS (test code = 1013) % PLATELET COUNT (test code = 1015) 116 K/UL HEMOGLOBIN [id number] 00:00:00 Test Item Value Reference Range Interpretation Comments HEMOGLOBIN A1c (test code = 59216) 5.3 % HEMOGLOBIN [id number] 00:00:00 Test Item Value Reference Range Interpretation Comments HEMOGLOBIN A1c (test code = 18884) 5.3 % HEMOGLOBIN [id number] 00:00:00 Test Item Value Reference Range Interpretation Comments HEMOGLOBIN A1c (test code = 48023) 5.3 % [id number] 00:00:00 Test Item Value Reference Range Interpretation Comments TSH (test code = 2821) 1.5 UIU/ML [id number] 00:00:00 Test Item Value Reference Range Interpretation Comments TSH (test code = 2821) 1.5 UIU/ML [id number] 00:00:00 Test Item Value Reference Range Interpretation Comments TSH (test code = 2821) 1.5 UIU/ML
--- NOTE | 2022-12-27 13:04 | RAD REPORT ---
EXAM DESCRIPTION: CT - Ct Stroke Brain Wo Cont - 12/27/2022 12:47 pm CLINICAL HISTORY: STROKE ALERT, AMS COMPARISON: No comparisons TECHNIQUE: Axial 5 millimeter thick images of the head were obtained without IV contrast. All CT scans are performed using dose optimization technique as appropriate and may include automated exposure control or mA/KV adjustment according to patient size. FINDINGS: No intracranial hemorrhage, mass, or cerebral edema. No acute cortical based infarction. N o cortical edema or sulcal effacement. There is some minimal artifacts along the inner table of the s kull. Asymmetry is created by patient head tilt. No extra-axial fluid collections. [place] matter-white matter differentiation is preserved.No significant atrophy or chronic ischemic changes seen. Ventric les are normal. Visualized portions of the mastoid air cells, paranasal sinuses, and orbits are unremarkable. Findings telephoned to Dr. Molina 12:47 p.m. IMPRESSION: No CT evidence of acute intracranial process.
[2022-12-27 13:10] LABS: Absolute Lymphocytes (CBC) 2.2 K/uL (0.7-4.9); Lymphocytes % 26.9 % (15.3-44.8); MPV 10.1 fL (7.6-11.3); RBC Red Blood Cell Count 4.06 M/uL (3.86-4.86)
--- NOTE | 2022-12-27 13:33 | RAD REPORT ---
EXAM DESCRIPTION: RAD - Chest Single View - 12/27/2022 1:24 pm CLINICAL HISTORY: AMS Chest pain. COMPARISON: Chest Single View dated 09/23/2021 FINDINGS: Portable technique limits examination quality. Mild interstitial pulmonary edema suspected. The heart is moderately enlarged in size. No displaced f ractures. IMPRESSION: Mild CHF.
[2022-12-27 13:36] LABS: Urine Blood Negative (Negative); Urine Glucose Negative (Negative); Urine Protein Negative (Negative); Urine Specific Gravity <=1.005 (1.005-1.030); Urine pH 5.5 (5.0-7.0)
[2022-12-27 13:52] LABS: Urine Bilirubin Negative (Negative); Urine Blood Negative (Negative); Urine Clarity Clear (Clear); Urine Color Yellow (Yellow); Urine Glucose Negative (Negative); Urine Protein Negative (Negative); Urine pH 5.5 (5.0-7.0)
[2022-12-27 13:54] LABS: Urine Bacteria <20 /HPF (<20); Urine Mucus Slight /HPF (None Seen); Urine RBC <5 /HPF (None Seen)
[2022-12-27 14:19] LABS: Protime INR 1.29
[2022-12-27 14:34] LABS: Albumin 3.3 g/dL (3.4-5.0); Bilirubin Direct 0.9 mg/dL (0-0.2); Bilirubin Total 1.4 mg/dL (0.2-1.0); Magnesium 1.9 mg/dL (1.6-2.4); Potassium 4.5 mmol/L (3.5-5.1); Protein, Total 8.9 g/dL (6.4-8.2); Troponin High Sensitivity 4.5 pg/mL (<58.9)
[2022-12-27 15:12] LABS: SARS-CoV-2 Antigen Rapid Res Negative (Negative)
--- NOTE | 2022-12-27 15:45 | EDPHYS ---
Physician Documentation [facility] Name: Leonila Chaudhry Age: 62 yrs Sex: Female : 1960 Arrival Date: 12/27/2022 Time: 12:44 Bed 4 Private MD: ED Physician Jones Molina HPI: 12/27 14:02 This 62 yrs old Female presents to ER via EMS with complaints of Altered sp3 Mental Status. 14:02 62-year-old female with a history of cirrhosis of the liver, bipolar disease, GERD, sp3 hepatitis C, hypertension presents with chief complaint altered mental status last seen yesterday p.m. Per EMS, patient was found this way at 10 AM and after nonself resolution EMS was activated around noon at which point patient presented to the ED. She has garbled speech the past with her appearing to understand questions but chronic with broken speech. No facial droop noted or focal gross neurodeficit. Review of systems and H\T\P fully limited secondary to altered mental status. Stroke alert was initiated and initial head CT was negative. Please see below for remainder of assessment and plan.. Historical: - Home Meds: 12:44 [place] Carbonate Oral [Active]; Amlodipine [Active]; lisinopril Oral [Active]; mb9 Metoprolol Tartrate Oral [Active]; - PMHx: 12:44 Bipolar disorder; cirrhosis of liver; GERD; Hepatitis C; Hypertensive disorder; mb9 - PSHx: 12:44 section; mb9 ROS: 14:04 Unable to obtain ROS due to altered mental status. sp3 Exam: 14:05 Neck: Trachea midline, no thyromegaly or masses palpated, and no cervical sp3 lymphadenopathy. Supple, full range of motion without nuchal rigidity, or vertebral point tenderness. No Meningismus. Chest/axilla: Normal chest wall appearance and motion. Nontender with no deformity. No lesions are appreciated. Cardiovascular: Regular rate and rhythm with a normal S1 and S2. No gallops, murmurs, or rubs. Normal PMI, no JVD. No pulse deficits. Respiratory: Lungs have equal breath sounds bilaterally, clear to auscultation and percussion. No rales, rhonchi or wheezes noted. No increased work of breathing, no retractions or nasal flaring. Abdomen/GI: Soft, non-tender, with normal bowel sounds. No distension or tympany. No guarding or rebound. No evidence of tenderness throughout. MS/ Extremity: Pulses equal, no cyanosis. Neurovascular intact. Full, normal range of motion. 14:05 Neuro: Patient has a very limited neurological exam. Patient is able to to answer questions in a limited fashion but answers with garbled voice. He is also on lithium and lithium level is pending ordered in addition to her other lab work. Because of pain equally on both sides and does have spontaneous movement. Pupils equal round reactive to light she does have spontaneous eye movements and opening.. Vital Signs: 12:45 BP 148 / 71; Pulse 60; Resp 13; Temp 96.2(R); Pulse Ox 96% on 2 lpm NC; Pain 0/10; mb9 13:23 Weight 72.57 kg; Height 5 ft. 5 in. (165.10 cm); mb9 14:20 BP 107 / 71; Pulse 55; Resp 15; Pulse Ox 98% on 2 lpm NC; mb9 15:12 BP 136 / 81; Pulse 58; Resp 12; Pulse Ox 98% on 2 lpm NC; mb9 16:16 BP 135 / 71; Pulse 61; Resp 13; Temp 97.5(R); Pulse Ox 96% on 2 lpm NC; mb9 16:59 BP 108 / 60; Pulse 56; Resp 13; Pulse Ox 96% on 2 lpm NC; mb9 18:09 BP 113 / 61; Pulse 58; Resp 18; Pulse Ox 97% on 2 lpm NC; mb9 13:23 Body Mass Index 26.63 (72.57 kg, 165.10 cm) mb9 MDM: 14:06 Data reviewed: vital signs, nurses notes, EMS record, lab test result(s), EKG, sp3 radiologic studies. ED course: 60 differential diagnosis includes and enidfsbo-qbwn-asf female with multiple medical problems including bipolar disease and cirrhosis of the liver presents with altered mental status. CT scan of the head is negative as per report and images reviewed by me also further support that. Laboratory values are pending. Will admit patient for general observation assuming no diagnoses attained through initial work-up. Diagnosis includes CVA, ICH, metabolic derangement, lithium toxicity, liver cirrhosis, hepatic encephalopathy, sepsis, shock, infection, UTI, pneumonia, among others.. 15:40 ED course: [place] level noted to be 2.4 with the upper limit of normal being 1.2. I sp3 believe this is the source of patient's acute mental status changes. Stat consults were placed to general surgery for Dimit[place] dialysis access placement and nephrology for emergent dialysis. Both consult services responded and will be here in reasonable timeframe for dialysis. I discussed this with the patient and family who consent and are okay with the plan. Patient will be subsequently admitted for further work-up.. 15:44 Patient medically screened. 3 12/27 12:44 Order name: Basic Metabolic Panel; Complete Time: 14:44 3 12/27 12:44 Order name: CBC with Diff; Complete Time: 14:44 3 12/27 12:44 Order name: Hepatic Function; Complete Time: 14:44 3 12/27 12:44 Order name: High Sensitivity Troponin; Complete Time: 14:44 3 12/27 12:44 Order name: Magnesium; Complete Time: 14:44 3 12/27 12:44 Order name: Protime (+inr); Complete Time: 14:44 3 12/27 12:44 Order name: Ptt, Activated; Complete Time: 14:44 3 12/27 12:52 Order name: Blood Culture Adult (2) 3 12/27 12:53 Order name: AMMONIA; Complete Time: 14:44 3 12/27 12:55 Order name: Lactate w/ 2H reflex if indic.; Complete Time: 14:44 3 12/27 13:03 Order name: Glucose, Ancillary Testing; Complete Time: 14:44 EDMT 12/27 12:44 Order name: CT Stroke Brain w/o Contrast; Complete Time: 14:44 3 12/27 12:44 Order name: Stroke CXR 1 View; Complete Time: 14:44 3 12/27 12:44 Order name: Call for Old EKG 3 12/27 12:44 Order name: EKG; Complete Time: 12:45 3 12/27 12:44 Order name: Accucheck; Complete Time: 12:50 3 12/27 12:44 Order name: Cardiac monitoring; Complete Time: 12:50 3 12/27 12:44 Order name: EKG - Nurse/Tech; Complete Time: 12:50 3 12/27 12:44 Order name: IV Saline Lock; Complete Time: 12:50 sp3 12/27 12:44 Order name: Labs collected and sent; Complete Time: 12:50 sp3 12/27 12:44 Order name: NPO; Complete Time: 12:50 sp3 12/27 13:36 Order name: Urine Dipstick-Ancillary; Complete Time: 14:44 EDMS 12/27 13:52 Order name: Urinalysis; Complete Time: 14:44 EDMS 12/27 13:54 Order name: Urine Microscopic Only; Complete Time: 14:44 EDMS 12/27 14:31 Order name: SARS RAPID; Complete Time: 15:21 mb9 12/27 14:46 Order name: [place]; Complete Time: 15:26 sp3 12/27 16:40 Order name: CXR XRAY bd 12/27 12:44 Order name: O2 Per Protocol; Complete Time: 12:50 sp3 12/27 12:44 Order name: O2 Sat Monitoring; Complete Time: 12:50 sp3 12/27 12:52 Order name: Urine Dipstick-Ancillary (obtain specimen); Complete Time: 14:27 sp3 12/27 13:16 Order name: Labs - recollect needed: recollect green and blue top; Complete Time: 13:56 bd 12/27 13:19 Order name: Labs - recollect needed: recollect all labs, ammonia and lactate on ice; bd Complete Time: 13:56 Administered Medications: No medications were administered Disposition Summary: 12/27/22 15:44 Hospitalization Ordered Hospitalization Status: Inpatient Admission sp3 Provider: [place] sp3 [facility] sp[facility] Condition: Fair sp3 Problem: new sp3 Symptoms: have worsened sp3 Bed/Room Type: Standard sp3 Room Assignment: 224(12/27/22 18:06) jl7 Diagnosis - [place] Toxicity, Altered Mental Status sp3 Forms: - Medication Reconciliation Form sp3 - SBAR form sp3 Signatures: Dispatcher [employer] EDMS Erlinda Thompson Shelby, RN RN ss Leal, Jahala, RN RN jl7 Domenic Benito RN RN ja1 Jones Molina MD MD sp3 Rand [address] RN RN mb9 Corrections: (The following items were deleted from the chart) 13:32 12:52 URINALYSIS+U.LAB.BRZ ordered. EDMS EDMS 13:32 12:52 UA MICROSCOPIC+U.LAB.BRZ ordered. EDMS EDMS 13:54 13:32 Urinalysis W/Microscopic ordered. EDMS EDMS 17:25 15:44 sp3 ss 18:06 17:25 219 ss ja1 18:06 18:06 224 ja1 jl7
--- NOTE | 2022-12-27 15:45 | ER ---
Nurse's Notes [facility] Name: Leonila Chaudhry Age: 62 yrs Sex: Female : 1960 Arrival Date: 12/27/2022 Time: 12:44 Bed 4 Private MD: Diagnosis: [place] Toxicity, Altered Mental Status Presentation: 12/27 12:44 Chief complaint: EMS states: Last seen normal at midnight. Found with AMS at 1000 by ss family. Coronavirus screen: Client denies travel out of the [place] in the last 14 days. Ebola Screen: Patient denies exposure to infectious person. Patient denies travel to an Ebola-affected area in the 21 days before illness onset. Initial Sepsis Screen: Does the patient meet any 2 criteria? No. Patient's initial sepsis screen is negative. Does the patient have a suspected source of infection? No. Patient's initial sepsis screen is negative. Risk Assessment: Do you want to hurt yourself or someone else? Patient reports no desire to harm self or others. Onset of symptoms is unknown. 12:44 Method Of Arrival: EMS: [facility] 12:44 Acuity: ADAM 2 ss Historical: - Home Meds: 12:44 [place] Carbonate Oral [Active]; Amlodipine [Active]; lisinopril Oral [Active]; mb9 Metoprolol Tartrate Oral [Active]; - PMHx: 12:44 Bipolar disorder; cirrhosis of liver; GERD; Hepatitis C; Hypertensive disorder; mb9 - PSHx: 12:44 section; mb9 Screenin:00 [facility] ED Fall Risk Assessment (Adult) History of falling in the last 3 months, mb9 including since admission No falls in past 3 months (0 pts) Confusion or Disorientation Yes (5 pts) Intoxicated or Sedated No (0 pts) Impaired Gait Yes (1 pt) Mobility Assist Device Used No (0 pt) Altered Elimination Yes (1 pt) Score/Fall Risk Level 3 or more points = High Risk Oriented to surroundings, Maintained a safe environment, Educated pt \\T\\ family on fall prevention, incl call for assistance when getting out of bed. Abuse screen: Denies threats or abuse. Nutritional screening: No deficits noted. Tuberculosis screening: No symptoms or risk factors identified. Assessment: 12:44 Reassessment: Code stroke called. Pt taken to CT via stretcher with charge nurse, greta Solorio, and MALI Philip. 13:00 General: Behavior is responsive to painful stimuli. mb9 13:00 Pain: Unable to use pain scale. Patient is disoriented. Neuro: Snow mb9 Agitation-Sedation Scale (RASS): -1 Drowsy Level of Consciousness is lethargic, Oriented to none Weakness in left in right in bilateral hand(s) arm(s) leg(s) Speech is slurred, Facial symmetry appears normal, Pupils are non-reactive, pinpoint. Cardiovascular: Heart tones S1 S2 present Rhythm is sinus bradycardia. Respiratory: Airway is patent Respiratory effort is even, unlabored, Respiratory pattern is regular, symmetrical, Breath sounds are clear bilaterally. Respiratory: pt intermittently clearing throat and coughing. GI: Abdomen is round non-distended, Bowel sounds present X 4 quads. Abd is soft and non tender X 4 quads. : Urine is orange. EENT:. EENT: No signs and/or symptoms were reported regarding the EENT system. Derm: Skin is fragile, is thin, Skin is dry, Skin is normal, Skin temperature is cool. Musculoskeletal: Range of motion: limited in all extremities. 13:25 Reassessment: Spoke with inside lab about redrawing blood. Stated "we will come but it mb9 may be a while". 13:55 Reassessment: First set of blood cultures sent. Lab at bedside collecting second set. mb9 14:00 General:. Neuro: Level of Consciousness is lethargic, Oriented to none. Respiratory: mb9 Airway is patent Respiratory effort is even, unlabored, Respiratory pattern is regular, symmetrical. Derm: Skin is fragile, is thin, Skin is dry, Skin is normal, Skin temperature is cool. 15:00 General: Appears uncomfortable. Pain: Denies pain. Neuro: Level of Consciousness is mb9 awake, Oriented to person, place, Speech is slurred. Cardiovascular: Rhythm is sinus bradycardia. Respiratory: Airway is patent Respiratory effort is even, unlabored, Respiratory pattern is regular, symmetrical. Derm: Skin is normal. 16:16 Reassessment: No changes from previously documented assessment. Neuro: Level of mb9 Consciousness is awake, lethargic, Oriented to person. Cardiovascular: Rhythm is regular. Respiratory: Airway is patent Respiratory effort is even, unlabored, Respiratory pattern is regular, symmetrical. 16:43 Reassessment: Dr. Miner at bedside performing dialysis catheter placement. Pt altered ss and no family present at this time. Consent signed by Dr. Miner and Dr. Molina for emergent procedure. 17:28 Reassessment: Attempted to call report to admitting nurse. mb9 18:04 Reassessment: Attempted to call report to admitting nurse. Kalina from second floor mb9 stated "that room is blocked off so I'm going to call Domenic to figure that out." Charge nurse, Bobby, notified. 18:09 Reassessment: Attempted to call report to extension [phone], line says "busy". mb9 18:11 Reassessment: No changes from previously documented assessment. Cardiovascular: Rhythm mb9 is sinus bradycardia. Respiratory: Airway is patent Respiratory effort is even, unlabored, Respiratory pattern is regular, symmetrical. Derm: Skin is normal. 18:26 Reassessment: gave report to admitting nurse MALI Ivy. mb9 Vital Signs: 12:45 BP 148 / 71; Pulse 60; Resp 13; Temp 96.2(R); Pulse Ox 96% on 2 lpm NC; Pain 0/10; mb9 13:23 Weight 72.57 kg; Height 5 ft. 5 in. (165.10 cm); mb9 14:20 BP 107 / 71; Pulse 55; Resp 15; Pulse Ox 98% on 2 lpm NC; mb9 15:12 BP 136 / 81; Pulse 58; Resp 12; Pulse Ox 98% on 2 lpm NC; mb9 16:16 BP 135 / 71; Pulse 61; Resp 13; Temp 97.5(R); Pulse Ox 96% on 2 lpm NC; mb9 16:59 BP 108 / 60; Pulse 56; Resp 13; Pulse Ox 96% on 2 lpm NC; mb9 18:09 BP 113 / 61; Pulse 58; Resp 18; Pulse Ox 97% on 2 lpm NC; mb9 13:23 Body Mass Index 26.63 (72.57 kg, 165.10 cm) mb9 ED Course: 12:44 Patient arrived in ED. sp3 12:44 Jones Molina MD is Attending Physician. sp3 12:44 Arm band placed on. mb9 12:47 CT Stroke Brain w/o Contrast In Process Unspecified. EDMS 12:[address], RN is Primary Nurse. mb9 13:00 Placed in gown. Bed in low position. Call light in reach. Side rails up X 1. Client mb9 placed on continuous cardiac and pulse oximetry monitoring. NIBP monitoring applied. compliance monitor on. 13:00 Inserted saline lock: 20 gauge in right antecubital area, using aseptic technique. mb9 Blood collected. 13:00 EKG done, by it technical architect. reviewed by Jones Molina MD. Mueller cath inserted, using sterile mb9 technique, 16 Fr., by health care attorney, balloon inflated, to gravity drainage, clamped. urine specimen collected. returned kelby urine. Patient tolerated well. 13:05 Inserted saline lock: 20 gauge in left antecubital area, using aseptic technique. mb9 13:26 Triage completed. ss 13:26 Stroke CXR 1 View In Process Unspecified. EDMS 13:35 Missed attempt(s): 22 gauge in left hand. Bleeding controlled, band aid applied, mb9 catheter tip intact. 15:13 No provider procedures requiring assistance completed. mb9 15:43 [place] MD is Hospitalizing Provider. sp3 17:05 CXR XRAY In Process Unspecified. EDMS 18:35 Patient admitted, IV remains in place. mb9 Administered Medications: No medications were administered Medication: 15:14 VIS not applicable for this client. mb9 Outcome: 15:44 Decision to Hospitalize by Provider. sp3 18:34 Admitted to Med/surg accompanied by tech, room 224, with oxygen, Report called to greta Ivy RN 18:34 Condition: stable 18:34 Condition: stable 18:35 Patient left the ED. mb9 Signatures: Dispatcher [employer] EDSD Lyndsey Fontenot RN RN ss Jones Molina MD MD sp3 [address], MALI RN greta Corrections: (The following items were deleted from the chart) 13:27 13:27 General: Appears mb9 mb9 16:44 14:00 Reassessment: No changes from previously documented assessment. mb9 ss 18:04 17:56 Reassessment: Attempted to call report to admitting nurse. Kalina from second mb9 floor stated "that room is blocked off so I'm going to call Domenic to figure that out." mb9
[2022-12-27] MEDS ORDERED: LIDOCAINE 1% MPF 30 ML VIAL ONE (16:06)
[2022-12-27] MEDS ORDERED: HEPARIN 500 UNIT/5 ML SYR IV ONE (16:06)
[2022-12-27] MEDS ORDERED: NA CHLORIDE 0.9% 1,000 ML ONE (16:13)
--- NOTE | 2022-12-27 17:09 | RAD REPORT ---
EXAM DESCRIPTION: RAD - Chest Single View - 12/27/2022 5:03 pm CLINICAL HISTORY: cath placement Chest pain. COMPARISON: Chest Single View dated 12/27/2022; Chest Single View dated 09/23/2021 FINDINGS: Portable technique limits examination quality. A left-sided venous catheter has been placed with its tip in the SVC. No postprocedure pneumothorax i s present.
[2022-12-27] MEDS ORDERED: ACETAMINOPHEN 650MG/RECT SUPP PR PRN (18:25)
[2022-12-27] MEDS ORDERED: ONDANSETRON 4 MG/2 ML VIAL IV PRN (18:25)
[2022-12-27] MEDS ORDERED: SODIUM CHLORIDE 0.9% 10ML INJ IV PRN (18:26)
--- NOTE | 2022-12-27 18:30 | P.HP ---
Certification for Inpatient Patient admitted to: Inpatient With expected LOS: >2 Midnights Patient will require the following post-hospital care: None Practitioner: I am a practitioner with admitting privileges, knowledge of patient current condition, hospital course, and medical plan of care. Services: Services provided to patient in accordance with Admission requirements found in Title 42 Section 412.3 of the Code of Federal Regulations Patient History Date of Service: 12/27/22 Reason for admission: Altered mental status, lithium toxicity History of Present Illness: Patient is a 62-year-old female with a past medical history significant for bipolar disorder, cirrhosis of the liver, GERD, hep C, hypertension who presents with complaint of altered mental status. Patient with garbled speech and lethargic. Patient unable to respond appropriately to verbal commands. Per nursing staff patient was found confused, noted to be weak and lethargic. No other signs or symptoms reported. Symptoms are aggravated or relieved by nothing. Patient was brought to the hospital for medical evaluation. Allergies No Known Allergies Allergy (Unverified 08/02/21 19:18) Home Medications: [place] Carbonate [Lithotabs *] 300 mg PO BID 08/02/21 OLANZapine [Olanzapine] 10 mg PO BEDTIME 08/02/21 Omeprazole [Prilosec] 40 mg PO DAILY 08/02/21 hydrOXYzine HCL [Atarax*] 25 mg PO BID 08/02/21 Furosemide [Lasix] 40 mg PO DAILY #30 tab 09/24/21 Spironolactone [Aldactone*] 50 mg PO DAILY #60 tab 09/24/21 - Past Medical/Surgical History -: GERD -: BPD -: Hypertension -: Hep C cirrhosis -: Psychosocial/ Personal History: Unemployed, lives with her daughter - Family History Father -: Heart disease Mother -: Heart disease - Social History Smoking Status: Unknown if ever smoked Alcohol use: Yes CD- Drugs: No Caffeine use: Yes Place of Residence: Home Review of Systems is unable to be obtained (Unable to assess. Patient confused.) Physical Examination - Physical Exam General: In no apparent distress, Confused HEENT: Atraumatic, PERRLA, Mucous membr. moist/pink, EOMI, Sclerae nonicteric Neck: Supple, 2+ carotid pulse no bruit, No LAD, Without JVD or thyroid abnormality Respiratory: Clear to auscultation bilaterally, Normal air movement Cardiovascular: No edema, Regular rate/rhythm, Normal S1 S2 Capillary refill: <2 Seconds Gastrointestinal: Normal bowel sounds, Non-distended, No tenderness Musculoskeletal: No clubbing, No swelling, No tenderness Integumentary: No rashes, No breakdown, No significant lesion, No tenderness/swelling Neurological: Normal speech, Normal tone, Normal affect Lymphatics: No axilla or inguinal lymphadenopathy - Studies Laboratory Data (last 24 hrs) 12/27/22 13:52: PT 14.2 H, INR 1.29, APTT 36.0 12/27/22 13:52: Sodium 136, Potassium 4.5, BUN 13, Creatinine 1.07 H, Glucose 124 H, Magnesium 1.9, Total Bilirubin 1.4 H, AST 86 H, ALT 77 H, Alkaline Phosphatase 183 H 12/27/22 12:57: WBC 8.30, Hgb 13.7, Hct 41.0, Plt Count 91 L Assessment and Plan - Plan --[place] toxicity. Surgeon consulted in the ER. Patient had a dialysis catheter placed. Nephrology consulted for emergent dialysis. CT head does not indicate any acute intracranial abnormality. We will await further recommendation from consultants. --Acute encephalopathy. Likely secondary to lithium toxicity. Initial ammonia level was elevated but repeat labs indicates normal levels. CT head unremarkable for any intracranial abnormality. Emergent dialysis planned. Continue supportive care --Bipolar disorder. We will hold off on home medication. Continue supportive care. --Liver cirrhosis. Continue supportive care. --History of hep C. Status unknown. Continue supportive care. --Thrombocytopenia. Secondary to liver disease. Continue supportive care. --Hypertension. Poorly controlled. We will manage BP with hydralazine as needed. --Hypomagnesemia. Replete as needed. --UTI POA. Continue antibiotics. Urine cultures pending. --CKD 3A. Baseline functions unknown. We will continue to monitor renal functions. --GERD. Patient placed on Protonix. --DVT prophylaxis with SCDs. Discharge Plan: Home Plan to discharge in: Greater than 2 days - Advance Directives Does patient have a Living Will: No Does patient have a Durable POA for Healthcare: No - Code Status/Comfort Care Code Status Assessed: Yes Physician Review: Patient Assessed, Agree with Above Assessment and Plan Critical Care: No
[2022-12-27 19:59] LABS: Thyroid Stimulating Hormone 0.412 uIU/mL (0.358-3.740)
[2022-12-27] MEDS ORDERED: ENOXAPARIN 40 MG/0.4 ML SQ SCH (20:00)
[2022-12-27 20:02] LABS: Magnesium 1.4 mg/dL (1.6-2.4)
[2022-12-27 20:10] LABS: Hepatitis B surface AG Interp. Nonreactive (Nonreactive)
[2022-12-27] MEDS ORDERED: MAGNESIUM SULFATE 1 gm IVPB 1 GM/100 ML BAG IV ONE (20:43)
[2022-12-27] MEDS ORDERED: HYDRALAZINE HCL 20 MG/ML VIAL IV PRN (20:52)
[2022-12-27] MEDS: CEFTRIAXONE 1,000 MG in NA CHLORIDE 0.9% 50 ML IVPB SCH (22:02)
[2022-12-28 02:25] VITALS: BMI 26.6
[2022-12-28 04:19] LABS: Absolute Lymphocytes (CBC) 2.3 K/uL (0.7-4.9); MPV 9.7 fL (7.6-11.3); RBC Red Blood Cell Count 3.53 M/uL (3.86-4.86)
[2022-12-28 04:32] LABS: Magnesium 2.4 mg/dL (1.6-2.4); Potassium 4.3 mmol/L (3.5-5.1)
[2022-12-28 05:06] LABS: Blood Morphology Comment NOT SEEN (NOT SEEN); Platelet Estimate DECR; White Blood Cell Scan OK (OK)
[2022-12-28] MEDS ORDERED: NA CHLORIDE 0.9% 500 ML IV ONE (08:02)
[2022-12-28] MEDS ORDERED: NA CHLORIDE 0.9% 1,000 ML ONE (08:08)
[2022-12-28] MEDS: PANTOPRAZOLE 40 MG INJ IVP SCH (08:49)
[2022-12-28] MEDS: CEFTRIAXONE 1,000 MG in NA CHLORIDE 0.9% 50 ML IVPB SCH (08:52)
[2022-12-28] MEDS ORDERED: NA CHLORIDE 0.9% 250 ML IV ONE (09:57)
[2022-12-28] MEDS ORDERED: NA CHLORIDE 0.9% 1,000 ML IV SCH ×2 (10:00→11:00)
[2022-12-28 10:07] LABS: Arterial Blood Carboxyhemoglob 1.3 % (0-1.5); Blood Gas Oxyhemoglobin 92.6 % (94-97); Blood O2 Saturation 95.2 % (92-98.5)
[2022-12-28] MEDS ORDERED: NA CHLORIDE 0.9% 1,000 ML IV ONE (10:39)
[2022-12-28 10:56] LABS: Absolute Lymphocytes (CBC) 1.5 K/uL (0.7-4.9); Hematocrit 33.4 % (36.0-45.0); MPV 9.3 fL (7.6-11.3); RBC Red Blood Cell Count 3.28 M/uL (3.86-4.86)
[2022-12-28 11:06] LABS: Protime INR 1.41
[2022-12-28 11:15] LABS: Albumin 2.6 g/dL (3.4-5.0); Bilirubin Total 1.2 mg/dL (0.2-1.0); Magnesium 2.3 mg/dL (1.6-2.4); Potassium 4.3 mmol/L (3.5-5.1); Protein, Total 6.8 g/dL (6.4-8.2); Troponin High Sensitivity 5.6 pg/mL (<58.9)
--- NOTE | 2022-12-28 12:02 | RAD REPORT ---
EXAM DESCRIPTION: RAD - Chest Single View - 12/28/2022 11:56 am CLINICAL HISTORY: pneumonia Chest pain. COMPARISON: Chest Single View dated 12/27/2022; Chest Single View dated 12/27/2022; Chest Single View da dipika 09/23/2021 FINDINGS: Portable technique limits examination quality. Mild linear atelectasis is present in the left lung base. The heart is mildly prominent in size. Left -sided venous catheter its tip in the SVC.
--- NOTE | 2022-12-28 15:05 | CON ---
Date of Consultation: 12/28/2022 History Of Present Illness: All the information has been obtained from the record and from the famil y by bedside as the patient sleepy, altered mental status. This is a 62-year-old female with signifi cant past medical history of bipolar and hypertension and cirrhosis, GERD, hep C. The patient came t o the hospital with altered mental status and drooling from the mouth. The patient's primary workup showed lithium toxicity with level 2.5. We took the patient for urgent dialysis yesterday. The aleta ent tolerated the dialysis very well. The patient's repeated lithium level down to 0.8, but the aleta ent still altered mental status. The patient denied taking any nonsteroidal. No recent change in he r medication. Allergies: NO KNOWN DRUG ALLERGIES. Home Medications: Include lithium 300 b.i.d., , omeprazole, Atarax, Lasix 40 daily, spiron olactone 50. Past Medical History: Includes; 1.GERD. 2.Bipolar. 3.Hypertension. 4.Cirrhosis of the liver. Past Surgical History: Includes , temporary hemodialysis catheter placement. Family History: Positive for hypertension and CAD. Social History: Active alcohol. Denied drugs abuse. Denied smoking. Review of Systems: Head and Neck: No red eye. No ear pain. GI: No nausea. No vomiting. : No polyuria. No dysuria. No hematuria. 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 Respiratory: No shortness of breath. Cardiovascular: No chest pain. Endocrine: No polydipsia. Skin: No rash. Neuro: Has altered mental status. Musculoskeletal: Generalized fatigue. Physical Examination: Vital Signs: Blood pressure 103/54, pulse of 60, afebrile. Earlier blood pressure down to 82. Chest: Clear to auscultation. Heart: S1, S2. Regular. Abdomen: Soft, nontender. Extremities: No edema. Neuro: The patient is sleepy. Moving 4 extremities. No focality. Laboratory Data: WBC 9, hemoglobin 11.1, platelet of 77. Sodium 142, potassium 4.3, bicarb 24, BUN 17, creatinine 1.1, GFR 53, calcium 8.2, phosphorus of 3. TSH 0.4. Urinalysis was negative for infe ction. Current Medications: The patient on include; 1.Ceftriaxone. 2.Hydralazine. 3.IV fluid at 75 per hour of normal saline. Assessment And Plan: 1.[place] toxicity, status post dialysis, currently low level is down. I am going to watch the aleta ent and we will follow up repeated level. 2.Acute kidney injury secondary to prerenal, dehydration, secondary to possible DI secondary to the lithium supported with specific gravity of 1.005. The patient will need aggressive hydration. I am going to give the patient another L of bolus and we will increase the normal saline to 100 to avoid a ny dehydration. 3.Marginal hypernatremia secondary to dehydration, secondary to the DI. I will change IV fluid to D 5 half and we will follow up the patient. 4.Altered mental status, possible secondary to lithium toxicity. Nevertheless, currently the level is down. We will follow up with primary. Continue hydration. Time spent examining the patient, [id number] review of data, lab, and radiology, discussing the vaibhav e with family by bedside, discussing the case with hospitalist and nursing staff, placing order more than 65 minutes. BONNIE Voice ID: [id number] Report ID: [id number]
[2022-12-28] MEDS: D5 0.45 NS 1,000 ML IV SCH ×2 (15:11→22:00)
--- NOTE | 2022-12-28 15:14 | RAD REPORT ---
EXAM DESCRIPTION: MRI - Brain Wo Cont - 12/28/2022 2:56 pm CLINICAL HISTORY: AMS Headache, drowsiness COMPARISON: Ct Stroke Brain Wo Cont dated 12/27/2022; Chest Single View dated 12/28/2022 TECHNIQUE: Multi-sequence, multiplanar MR imaging of the brain was performed without contrast. FINDINGS: No intracranial hemorrhage, hydrocephalus or extra-axial fluid collections. No edema or sh ift of midline structures. No findings to suspect brain mass. DWI is negative for acute CVA. Midline structures are normally formed. Mastoid air cells and paranasal sinuses are clear. IMPRESSION: No acute or concerning intracranial abnormalities.
--- NOTE | 2022-12-28 22:22 | CON ---
Reason For Consultation: Consultation called because of altered mental status. Chief Complaint: The patient is in bed and mumbles some words, but eventually did follow commands, b ut complaint is altered mental status. History Of Present Illness: Ms. Chaudhry is a 62-year-old patient with bipolar disorder, hepatitis rel ated liver cirrhosis, gastroesophageal reflux disease, and hypertension who reportedly was last known well somewhere in the afternoon, but then was found around 10 in the morning confused, disoriented w ith garbled speech, and not making sense. She was brought to [facility] and her evaluation identified toxic levels of lithium of twice the upper limit at 2.4. Her ammonia level was elevated t o 70. Creatinine was slightly elevated at 1.17. Otherwise, there is mildly elevated white blood baldo l count of 12.1. Arterial blood gas did show low pH of 7.4, pCO2 was elevated 47.2, and pO2 normal a t 81.8. Urinalysis showed positive nitrite with 10 to 20 hyaline casts, but was otherwise unremarkab le. Her hepatitis B antigen nonreactive and COVID testing was negative. She did have a head CT scan and an MRI of the brain that showed no acute ischemic or hemorrhagic findings. The patient has rece ived hydration and she has actually had low blood pressures, initially reported systolic had dropped to 82 with diastolic 51 and she did receive hydration, most recently 140/73. She is not on lactulose yet and will likely be shortly as she has had some low blood pressures. The patient's lithium level on repeat today after hydration was 0.8. She did have a routine electroencephalogram, which showed a mild to moderately slow background with diffusely expressed diphasic and triphasic sharp waves cons istent with diffuse, but nonspecific dysfunction in cerebral activity. The effects of lithium toxici ty may have that appearance. Past Medical History: As noted. Medications: At home are lithium, amlodipine, lisinopril, and metoprolol. Past Surgical History: . Review of Systems: Not reliable. Family History: Noncontributory. Physical Examination: Vital Signs: Blood pressure 140/73, pulse 65, respiratory rate 16, temperature 97.7, and oxygen satu ration 97% to 100%. Weight 106 pounds, height 5 feet 5 inches. General: Ms. Chaudhry is resting in bed. She is receiving IV fluids. Family is at the bedside. Neurologic: She did make some grunting sounds and eventually did follow commands to move her feet, w hich she did equally well to the left hand. The right hand had board restraining it where the IV was placed, but she did move her hands and that was across the forearm where the board was placed. In t erms of cranial nerves, she did not have any obvious focal deficits. With the motor exam, no focal w eakness noted. Sensory exam with no apparent asymmetries. Reflexes symmetric and depressed. Coordi nation difficult to assess, but she did have slowed movements and she did not ambulate and will ambul ate with physical therapy and likely with a gait belt in place. Assessment: Ms. Chaudhry is a 62-year-old patient with likely encephalopathy due to toxic causes of li thium toxicity and elevated ammonia level from her hepatitis C cirrhosis. She is mildly dehydrated a nd has had some hypercapnia as well. At this point, IV hydration and elevation of the blood pressure s will be helpful and may then give lactulose to help lower the ammonia level. [place] level in the blood is now normal, but likely has diffused from the cerebral regions allowing more improved cogniti ve functioning. She did not have seizures on EEG, but diffusely slow pattern with biphasic and triph asic sharp waves that should improve as lithium is removed from the brain. Plan: Follow the patient as she is improving. Continue hydration. Continue possibility of ammonia reduction with lactulose and she may require physical therapy to help improve her coordination, gait, balance, especially if she remains in the hospital for 3 days. Otherwise, she may follow up with r psychiatrist as appropriate. She has no evidence of stroke on MRI and CT or neurological examination. She may follow up with Neur ology as needed. LB/MODL Voice ID: [id number] Report ID: [id number]
[2022-12-28] MEDS ORDERED: LORazepam 2 MG/ML VIAL IV ONE (23:01)
[2022-12-29] MEDS ORDERED: ZIPRASIDONE MESYLA 20 MG/VIAL IM ONE (00:08)
[2022-12-29] MEDS ORDERED: WATER FOR INJ,STERILE 10 ML IM PRN (00:08)
--- NOTE | 2022-12-29 00:08 | P.PN ---
Date of Service: 12/29/22 Patient has been intermittently agitated, trying to pull out her dialysis catheter and getting out of bed resulting in a mechanical fall. Bed alarm did not sound. She was found on the floor on her hands and knees. No signs of head trauma. Noted to be very confused without and is unable to verbalize what happened or how she ended up on the floor. No injuries sustained. Vital signs stable. No indication for imaging. Per chart review, ammonia elevated at 70. Lactulose ordered. Geodon ordered for agitation.
[2022-12-29] MEDS ORDERED: LACTULOSE 20 GM/30 ML UCUP PO ONE (03:50)
--- NOTE | 2022-12-29 08:01 | EKG ---
Test Date: 2022-12-27 Test Time: 12:52:32 Sports Physiologist: BUDDY MEASUREMENT RESULTS: Intervals: Rate: 50 NC: 154 QRSD: 80 QT: 444 QTc: 404 [place]: P: 43 NC: 154 QRS: 85 T: 80 INTERPRETIVE STATEMENTS: Sinus bradycardia Otherwise normal ECG Compared to ECG 09/23/2021 18:12:58 Sinus rhythm no longer present Myocardial infarct finding no longer present Electronically Signed On 12-29-22 07:56:06 EVENT HOST by Jaylon Wheat
--- NOTE | 2022-12-29 08:33 | ECHO ---
HEIGHT: 5 ft 5 in WEIGHT: 160 lb 0 oz DATE OF STUDY: 12/28/[address]: [place] MD 2-DIMENSIONAL: YES M.MODE: YES DOPPLER: YES COLOR FLOW: YES TDS: PORTABLE: DEFINITY: BUBBLE STUDY: DIAGNOSIS: CONGESTIVE HEART FAILURE CARDIAC HISTORY: CATHERIZATION: SURGERY: PROSTHETIC VALVE: PACEMAKER: MEASUREMENTS (cm) DIASTOLIC (NORMALS) SYSTOLIC (NORMALS) IVSd 0.9 (0.6-1.2) LA Diam 3.8 (1.9-4.0) LVEF 76% LVIDd 4.1 (3.5-5.7) LVIDs 2.3 (2.0-3.5) %FS 44% LVPWd 0.9 (0.6-1.2) Ao Diam 2.6 (2.0-3.7) 2 DIMENSIONAL ASSESSMENT: RIGHT ATRIUM: NORMAL LEFT ATRIUM: NORMAL RIGHT VENTRICLE: NORMAL LEFT VENTRICLE: NORMAL TRICUSPID VALVE: MILD TRICUSPID REGURGITATION MITRAL VALVE: MILD MITRAL REGURGITATION PULMONIC VALVE: MILD PULMONIC INSUFFICIENCY AORTIC VALVE: NORMAL PERICARDIAL EFFUSION: NONE AORTIC ROOT: NORMAL LEFT VENTRICULAR WALL MOTION: NORMAL DOPPLER/COLOR FLOW: SEE BELOW COMMENTS: 1. NORMAL LEFT VENTRICULAR EJECTION FRACTION 60-65% WITH NORMAL WALL MOTION 2. NORMAL DIASTOLIC FUNCTION 3. MILD TRICUSPID REGURGITATION, PULMONIC INSUFFICIENCY 4. MILD MITRAL REGURGITATION 5. RIGHT VENTRICULAR SYSTOLIC PRESSURE 40-45 mmHg (MILDLY ELEVATED) TECHNOLOGIST: DAVID BISHOP
[2022-12-29] MEDS: CEFTRIAXONE 1,000 MG in NA CHLORIDE 0.9% 50 ML IVPB SCH (09:41)
[2022-12-29] MEDS: PANTOPRAZOLE 40 MG INJ IVP SCH (09:41)
[2022-12-29] MEDS: D5 0.45 NS 1,000 ML IV SCH (09:42)
--- NOTE | 2022-12-29 09:48 | EEG ---
CHART: [id number] TEST ID#: [id number] DATE OF STUDY: 12-28-2022 THE EEG WAS RECORDED PORTABLE IN THE PATIENT'S ROOM ON A 17 CHANNEL MACHINE. ELECTRODES WERE APPLIED IN THE USUAL MANNER USING THE INTERNATIONAL 10-20 SYSTEM. THE WAKING BACKGROUND RHYTHM IN THIS RECORD CONSISTS OF POORLY DEVELOPED AND POORLY ORGANIZED WAVES OF 4-6 HZ., IN A WIDE DISTRIBUTION WHICH ATTENUATE NORMALLY WITH EYE OPENING. MODERATE VOLTAGE DIAPHASIC AND TRIPHASIC WAVES ARE DIFFUSELY EXPRESSED. THERE ARE NO FOCAL OR LATERALIZING FEATURES. NO EPILEPTIFORM ACTIVITY APPEARS. SLEEP DID NOT OCCUR. HYPERVENTILATION WAS NOT PERFORMED. PHOTIC STIMULATION PRODUCED NO DRIVING BILATERALLY. IMPRESSION: THIS IS A MODERATELY ABNORMAL AWAKE EEG DUE TO A DIFFUSELY SLOW BACKGROUND AND DIFFUSELY EXPRESSED DIAPHASIC AND TRIPHASIC SHARP WAVES. THESE FINDINGS INDICATE THE PRESENCE OF A NON-SPECIFIC DIFFUSE DISTURBANCE IN CEREBRAL ACTIVITY. LITHIUM TOXICITY COULD HAVE THIS APPEARANCE.
[2022-12-29 12:30] LABS: Absolute Lymphocytes (CBC) 2.2 K/uL (0.7-4.9); Hematocrit 35.8 % (36.0-45.0); Lymphocytes % 31.2 % (15.3-44.8); MCV 102.2 fL (80-100); MPV 9.6 fL (7.6-11.3)
[2022-12-29 13:16] LABS: Blood Morphology Comment NOTED (NOT SEEN); Macrocytosis 1+; Platelet Estimate DECR; White Blood Cell Scan OK (OK)
[2022-12-29] MEDS ORDERED: D5 0.45 NS 1,000 ML IV SCH (14:00)
[2022-12-29 14:26] LABS: Albumin 2.6 g/dL (3.4-5.0); Bilirubin Total 1.3 mg/dL (0.2-1.0); Protein, Total 6.8 g/dL (6.4-8.2)
--- NOTE | 2022-12-29 14:29 | PN ---
Date of Progress Note: 12/29/2022 Subjective: The patient was admitted with lithium toxicity. The patient undergone dialysis 1 sessio n. [place] level has improved to therapeutic level. The patient more awake today. Physical Examination: Vital Signs: Blood pressure 106/59, pulse of 69, afebrile. Chest: Clear to auscultation. Heart: S1, S2. Regular. Abdomen: Soft, nontender. Extremities: No edema. Neurologic: Alert. No focality. Laboratory Data: Hemoglobin 11.9. Sodium 142, potassium 4.3, bicarb 24, BUN 17, creatinine 1.1, GFR 53, calcium 8.2. Current Medications: The patient on include; 1.Ceftriaxone. 2.Tylenol. 3.Geodon. 4.Lactulose. 5.Zofran. Assessment And Plan: 1.Acute kidney injury secondary to prerenal, secondary to polyuria secondary to lithium, recovered. I am going to continue hydration. If the patient optimizes her oral intake, we will discontinue IV fluid for today. We will decrease it to 50 per hour. 2.[place] toxicity, status post dialysis, recovered, resolved. 3.Hypernatremia. Continue IV fluid. Given the sodium toxicity and low specific gravity, I am going to go ahead and start the patient on hydrochlorothiazide and we will follow up the patient. 4.Hypertension, controlled, optimal. Continue current treatment and hydrochlorothiazide. 5.Bipolar as by primary. COREEN/ROLDAN Voice ID: [id number] Report ID: [id number]
--- NOTE | 2022-12-30 06:20 | P.PN ---
Subjective Date of Service: 12/28/22 PATIENT CONTINUES TO HAVE ALTERED MENTATION. VERY LETHARGIC. AGGRESSIVE IV FLUID BOLUSES PATIENT WITH VERY MINIMAL URINE OUTPUT. CONTINUE MONITORING LITHIUM LEVEL. CHECK AMMONIA LEVEL WELL. Review of Systems 10-point ROS is otherwise unremarkable Physical Examination - Vital Signs Temperature: 99.4 F Blood Pressure: 115/67 Pulse: 74 Respirations: 20 Pulse Ox (%): 96 - Physical Exam General: Confused Respiratory: Clear to auscultation bilaterally, Normal air movement Cardiovascular: Regular rate/rhythm, Normal S1 S2 Gastrointestinal: Normal bowel sounds, Soft and benign, Non-distended, No tenderness Musculoskeletal: No clubbing, No swelling, No tenderness Neurological: Sensation intact, Cranial nerves 3-12 intact - Studies Medications List Reviewed: Yes Assessment & Plan - Problems (Diagnosis) (1) [place] toxicity Current Visit: Yes Status: Acute (2) ESRD (end stage renal disease) Current Visit: Yes Status: Acute (3) Hemodialysis status Current Visit: Yes Status: Acute (4) Alcohol use Current Visit: No Status: Chronic (5) Bipolar 1 disorder Current Visit: No Status: Chronic (6) HTN (hypertension) Current Visit: No Status: Chronic Qualifiers: Hypertension type: primary hypertension Qualified Code(s): I10 - Essential (primary) hypertension (7) Hepatic cirrhosis due to chronic hepatitis C infection Current Visit: No Status: Chronic - Plan PLAN: 1. CONTINUE WITH AGGRESSIVE IV HYDRATION 2. APPRECIATE NEPHROLOGY CONSULTATION 3. MONITOR LITHIUM LEVEL 4. MRI AND EEG PENDING 5. NEUROLOGY CONSULTATION 6. MONITOR AMMONIA LEVEL 7. RULE OUT INFECTIOUS CAUSES 8. GI AND DVT PROPHYLAXIS Discharge Plan: Home Plan to discharge in: Greater than 2 days - Advance Directives Does patient have a Living Will: No Does patient have a Durable POA for Healthcare: No - Code Status/Comfort Care Code Status Assessed: Yes Code Status: Full Code Physician Review: Patient Assessed, Agree with Above Assessment and Plan Critical Care: No Time Spent Managing PTS Care (In Minutes): 35
--- NOTE | 2022-12-30 06:24 | P.PN ---
Date of Service: 12/29/22 Subjective PATIENT CONTINUES TO IMPROVE. REMOVED HEMODIALYSIS ACCESS CATHETER / MIRIAN CATHETER. SHE HAD PULLED ON IT THE NIGHT BEFORE AND THERE WAS BLEEDING AROUND THE CATHETER SITE. DECIDED TO GO AHEAD AND REMOVE IT AFTER TALKING TO NEPHROLOGY. LITHIUM LEVEL IS STABLE. AMMONIA LEVEL HAS IMPROVED. MENTATION HAS IMPROVED AND PATIENT A REALLY WELL. SHE SEEMS REALLY GEL FEEL AT THIS POINT. IF SHE CONTINUES TO IMPROVE POSSIBLE DISCHARGE IN THE MORNING. Review of Systems 10-point ROS is otherwise unremarkable Physical Examination - Vital Signs REVIEWED - Physical Exam General: ORIENTED TO PERSON PLACE BUT NOT TO TIME Respiratory: Clear to auscultation bilaterally, Normal air movement Cardiovascular: Regular rate/rhythm, Normal S1 S2 Gastrointestinal: Normal bowel sounds, Soft and benign, Non-distended, No tenderness Musculoskeletal: No clubbing, No swelling, No tenderness Neurological: Sensation intact, Cranial nerves 3-12 intact - Studies Medications List Reviewed: Yes Assessment & Plan - Problems (Diagnosis) (1) [place] toxicity Current Visit: Yes Status: Acute (2) ESRD (end stage renal disease) Current Visit: Yes Status: Acute (3) Hemodialysis status Current Visit: Yes Status: Acute (4) Alcohol use Current Visit: No Status: Chronic (5) Bipolar 1 disorder Current Visit: No Status: Chronic (6) HTN (hypertension) Current Visit: No Status: Chronic Qualifiers: Hypertension type: primary hypertension Qualified Code(s): I10 - Essential (primary) hypertension (7) Hepatic cirrhosis due to chronic hepatitis C infection Current Visit: No Status: Chronic - Plan CONTINUE WITH PLAN OF CARE MENTIONED BELOW 1. CONTINUE WITH IV HYDRATION 2. APPRECIATE NEPHROLOGY CONSULTATION 3. MONITOR LITHIUM LEVEL; LAST TWO LITHIUM LEVELS HAVE BEEN WITHIN NORMAL LIMITS 4. MRI AND EEG HAVE BEEN REVIEWED 5. NEUROLOGY CONSULTATION APPRECIATED 6. MONITOR AMMONIA LEVEL; WITHIN NORMAL LIMITS 7. GI AND DVT PROPHYLAXIS
[2022-12-30] MEDS: hydroCHLOROthiazide 12.5 MG CAP PO SCH (09:28)
[2022-12-30] MEDS: CEFTRIAXONE 1,000 MG in NA CHLORIDE 0.9% 50 ML IVPB SCH (09:28)
[2022-12-30] MEDS: PANTOPRAZOLE 40 MG INJ IVP SCH (09:28)
--- NOTE | 2022-12-30 14:06 | P.PN ---
Subjective Date of Service: 12/30/22 Chief Complaint: Altered mental status, lithium toxicity Subjective: No new changes Physical Examination - Vital Signs Temperature: 98.4 F Blood Pressure: 113/62 Pulse: 73 Respirations: 18 Pulse Ox (%): 97 - Physical Exam General: In no apparent distress HEENT: Atraumatic, Normocephalic Neck: Supple, JVD not distended Respiratory: Other (symmetric chest expansion) Cardiovascular: No rubs, No murmurs Gastrointestinal: Soft and benign, No guarding Musculoskeletal: No clubbing Integumentary: No warmth Neurological: Normal speech, Normal tone Lymphatics: No axilla or inguinal lymphadenopathy Urinary: Other (no bladder distention) External genitalia: Deferred Rectal: Deferred - Studies Medications List Reviewed: Yes Assessment And Plan - Plan # Acute kidney injury secondary to prerenal, secondary to polyuria secondary to lithium YOGI resolved [place] by mouth fluid intake. IV hydration prn. # [place] toxicity S/p dialysis Resolved, monitor # Hypertension Controlled, cont current med regimen # Bipolar disorder Per primary team # Dispo Okay to DC to home from renal standpoint Physician Review: Patient Assessed, Agree with Above Assessment and Plan
--- NOTE | 2022-12-30 15:08 | RAD REPORT ---
EXAM DESCRIPTION: RAD - Foot Left 2 View - 12/30/2022 1:51 pm CLINICAL HISTORY: Pain; s/p fall COMPARISON: No comparisons FINDINGS: No acute fracture. No malalignment. Calcaneal spurring. IMPRESSION: No acute osseous abnormality involving the left foot.
[2022-12-30 22:23] VITALS: O2SAT 96
--- NOTE | 2022-12-30 23:47 | P.PN ---
Date of Service: 12/30/22 Subjective patient is clinically doing well. Ambulated the patient without difficulty. Patient is tolerating her diet as well. Overall patient is doing much better. Anticipate discharge home later today. Review of Systems 10-point ROS is otherwise unremarkable Physical Examination - Vital Signs REVIEWED - Physical Exam General: Awake, alert, oriented to person place and time Respiratory: Clear to auscultation bilaterally, Normal air movement Cardiovascular: Regular rate/rhythm, Normal S1 S2 Gastrointestinal: Normal bowel sounds, Soft and benign, Non-distended, No tenderness Musculoskeletal: No clubbing, No swelling, No tenderness Neurological: no focal deficits - Studies Medications List Reviewed: Yes Assessment & Plan - Problems (Diagnosis) (1) [place] toxicity Current Visit: Yes Status: Acute (2) ESRD (end stage renal disease) Current Visit: Yes Status: Acute (3) Hemodialysis status Current Visit: Yes Status: Acute (4) Alcohol use Current Visit: No Status: Chronic (5) Bipolar 1 disorder Current Visit: No Status: Chronic (6) HTN (hypertension) Current Visit: No Status: Chronic Qualifiers: Hypertension type: primary hypertension Qualified Code(s): I10 - Essential (primary) hypertension (7) Hepatic cirrhosis due to chronic hepatitis C infection Current Visit: No Status: Chronic - Plan CONTINUE WITH PLAN OF CARE MENTIONED BELOW 1. CONTINUE WITH IV HYDRATION 2. APPRECIATE NEPHROLOGY CONSULTATION 3. LITHIUM LEVELS HAVE BEEN WITHIN NORMAL LIMITS; HEMODIALYSIS ACCESS CATHETER HAS BEEN REMOVED 4. MRI AND EEG HAVE BEEN REVIEWED 5. NEUROLOGY CONSULTATION APPRECIATED 6. MONITOR [place] LEVEL; WITHIN NORMAL LIMITS 7. STABLE FOR DISCHARGE HOME; WAITING FOR FAMILY TO [employer] BU[employer]ER PATIENT 8. GI AND DVT PROPHYLAXIS
[2022-12-31 06:40] LABS: Absolute Lymphocytes (CBC) 1.9 K/uL (0.7-4.9); Lymphocytes % 39.5 % (15.3-44.8); MCV 100.8 fL (80-100); MPV 9.7 fL (7.6-11.3); RBC Red Blood Cell Count 2.98 M/uL (3.86-4.86)
[2022-12-31 06:59] LABS: Magnesium 1.7 mg/dL (1.6-2.4); Potassium 3.9 mmol/L (3.5-5.1)
[2022-12-31 07:54] LABS: Blood Morphology Comment NOT SEEN (NOT SEEN); Platelet Estimate DECR; White Blood Cell Scan OK (OK)
[2022-12-31] MEDS: hydroCHLOROthiazide 12.5 MG CAP PO SCH ×2 (09:00→09:04)
[2022-12-31] MEDS: CEFTRIAXONE 1,000 MG in NA CHLORIDE 0.9% 50 ML IVPB SCH (09:04)
[2022-12-31] MEDS: PANTOPRAZOLE 40 MG INJ IVP SCH (09:04)
[2022-12-31 12:27] VITALS: BP 106/65; TEMP 98
== END 2022-12-31 13:27 | disposition home or self-care (01) | DRG 917 ==
LOC: ER 12:40 → ERHOLD 16:54 → 2ND 17:58
PROVIDERS: ADMIT Hospitalist; ATTEND Hospitalist
PROC: 5A1D70Z Performance of Urinary Filtration, Intermittent, Less than 6 Hours Per Day (ICD-10-PCS; principal; 2022-12-27)
PROC: 02HV33Z Insertion of Infusion Device into Superior Vena Cava, Percutaneous Approach (ICD-10-PCS; 2022-12-27)
DX: T43.591A Poisoning by other antipsychotics and neuroleptics, accidental (unintentional), initial encounter (principal); G92.8 Other toxic encephalopathy; N18.6 End stage renal disease; N39.0 Urinary tract infection, site not specified; N17.9 Acute kidney failure, unspecified; E87.0 Hyperosmolality and hypernatremia; I12.0 Hypertensive chronic kidney disease with stage 5 chronic kidney disease or end stage renal disease; K21.9 Gastro-esophageal reflux disease without esophagitis; F31.9 Bipolar disorder, unspecified; E86.0 Dehydration; K74.60 Unspecified cirrhosis of liver; B18.2 Chronic viral hepatitis C; D69.59 Other secondary thrombocytopenia; E83.42 Hypomagnesemia; Z99.2 Dependence on renal dialysis; Z56.0 Unemployment, unspecified; Z95.9 Presence of cardiac and vascular implant and graft, unspecified; Z79.899 Other long term (current) drug therapy; Z20.822 Contact with and (suspected) exposure to COVID-19
CPT/HCPCS: 36415; 51702; 70450; 70551; 71045; 80048; 80053; 80061; 80076; 80178; 81003; 81015; 82140; 82747; 82805; 82947; 83540; 83605; 83735; 83880; 84100; 84145; 84439; 84443; 84484; 85025; 85610; 85730; 87040; 87340; 87811; 92610; 93005; 93306; 95816; 97116; 97161; 99285; C9113; J1642; J2001; J3475; J7030; J7799

== ENCOUNTER 2023-10-05 11:24 | Inpatient (IN) | payer OTHER ==
--- OUTSIDE RECORDS SUMMARY | 2023-10-05 11:32 | XMS REPORT | Continuity of Care Document ---
:1960 Author Organization [facility] t Address [address] [facility]. [address] [place] [address] Care Team Providers Name Role Phone Abhinav MSN,, Opal Primary Care Physician [phone] Pollo Wagoner MD Attending Clinician Valente Glover PA-C Attending Clinician Mayra Whyte Attending Clinician Enmanuel Manning MD Attending Clinician Virtual, Surgeon Attending Clinician Unavailable ENMANUEL MANNING Attending Clinician Unavailable Jeffery CARDONA, Elsi Cassidy Attending Clinician [phone] Kip Molina MD Attending Clinician Alexander Burrows Attending Clinician Unavailable Maury SAMSON, Kaylyn Attending Clinician Unavailable Jung Sanches RN Attending Clinician Unavailable Uzma Perry MA Attending Clinician Unavailable Rusty Nguyễn MD Attending Clinician Sri Fuchs MA Attending Clinician Unavailable Benson Ireland MA Attending Clinician Unavailable Kayli Min RN Attending Clinician Unavailable VAISHNAVI MEYER Attending Clinician Unavailable ENMANUEL MANNING Admitting Clinician Unavailable Payers Payer Name Policy Type Policy Number Effective Date Expiration Date S ource Problems Condition Condition Condition Status Onset Resolution Last Treating Co mments Source Name Details Category Date Date Treatment Clinician Date 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 Portal Portal Disease Recurre Overview: [facility] on on 00:00: g of this Medical 00 note Center might be different from the original. CT February, reporting splenomeg wilda and MPV 1.7 cm Last Assessmen t & Plan: Formattin g of this note might be different from the original. Evidenced by CT February, reporting splenomeg widla, MPV 1.7 cm. Cirrhosis represent s a potential risk for gastroeso phageal varices and/or portal hypertens lillie gastropat hy. Both increase the risk of UGI bleeding. She denies prior hematemes is or varices noted to recent EGD by Dr. Mancuso, the official report is unavailab le at [...] provided to low sodium diet (< 2GM). Esophageal Esophageal Disease Recurre [facility] varices [facility] 04[facility]16 [facility] 00:[facility]: Medical 00 Center Encounter Encounter Disease Active Last [facility] for 04-16 [facility] screening screening 00:00: t & Plan: M [...] [facility] 00:00: t & Plan: Medical 00 [facility] g of this note might be different [...] [facility] 00:00: t & Plan: Medical 00 [facility] g of this note might be different [...] conferenc e. Further recommend ations to come. Allergies, Adverse Reactions, Alerts Allergy Allergy Status Severity Reaction(s) Onset Inactive Treating Comm ents Source Name Type Date Date Clinician NO KNOWN Allergy Active [facility] Family History Family Member Diagnosis Comments Start Date Stop Date Source Natural brother Liver disease [facility] Natural brother Hepatitis [facility] Natural father Cancer [facility] Maternal aunt Cancer [facility] Natural mother Aneurysm [facility] Paternal aunt Cancer [facility] Paternal uncle Cancer [facility] Social History Social Habit Start Date Stop Date Quantity Comments Source Sexual orientation 2023-06-[address] [facility] 09:21:24 (finding) Medical Center History of tobacco Cigarette Smoker [facility] use Medical Center History SDOH [facility] Alcohol Frequency Medical Center History SDOH [facility] Alcohol Std Drinks Medica [facility] History SDOH [facility] Alcohol Binge Medical [facility] [facility] Alcohol intake 2023-06-14 2023-06-14 Current drinker of [facility] 00:00:00 00:00:00 alcohol (finding) Medical Center History of Social 2023-06-14 2023-06-[address] [facility] function 00:00:00 00:00:00 Medical Center Cigarettes smoked 2023-04-12 2023-04-[address] [facility] current (pack per 00:00:00 00:00:00 Medical Center day) - Reported Cigarette 2023-04-12 2023-04-[address] [facility] pack-years 00:00:00 00:00:00 Medical Center Tobacco use and 2023-04-12 2023-04-12 User of smokeless [facility] exposure 00:00:00 00:00:00 tobacco Medical Center Alcohol Comment 2021-04-16 2021-04-16 Beer - one daily [facility] 00:00:00 00:00:00 Medical Center Sex Assigned At [address] [facility] 00:00:00 00:00:00 Medical Center Smoking Status Start Date Stop Date Source Smokes tobacco daily 2023-04-12 00:00:00 [facility] Medications Ordered Filled Start Stop Current Ordering Indication Dosage Frequency Signature Comments Components Source Medication Medication Date Date Medication? Clinician (SIG) Name Name spironolact Yes Other TAKE [address] [facility] one 7-17 [facility] TABLET BY [facility] (ALDACTONE) 00:00: MOUTH Medic al 50 MG 00 EVERY Center tablet MORNING FOR 30 DAYS spironolact Yes Other TAKE [address] [facility] one 7-17 ascites TABLET BY [facility] (ALDACTONE) 00:00: MOUTH Medic al 50 MG 00 EVERY Center tablet MORNING FOR 30 DAYS ibuprofen Yes 800mg [id number] Take [address] (ADVIL,MOTR 6-21 [id number] tablet [facility] IN) 800 MG 00:00: 3D (800 mg [facility]i [facility] tablet 00 total) by Center mouth 3 (three) times daily. ibuprofen Yes 800mg [id number] Take [address] (ADVIL,MOTR 6-21 [id number] tablet [facility] IN) 800 MG 00:00: 3D (800 mg [facility]i [facility] tablet 00 total) by Center mouth 3 (three) times daily. ibuprofen Yes 800mg [id number] Take [address] [address] (ADVIL,MOTR 6-21 [id number] tablet [facility] IN) 800 MG 00:00: 3D (800 mg Medi [place] tablet 00 total) by Center mouth 3 (three) times daily. albuterol Yes SMARTSIG:V [facility]FA 6-14 ia Inhaler [facility] (VENTOLIN 00:00: Medical HFA) 90 00 Center mcg/actuati on inhaler albuterol Yes SMARTSIG:V [facility] 6-14 ia Inhaler [facility] (VENTOLIN 00:00: Medical HFA) 90 00 Center mcg/actuati on inhaler albuterol Yes SMARTSIG:V [facility]FA 6-14 ia Inhaler [facility] (VENTOLIN 00:00: Medical HFA) 90 00 Center mcg/actuati on inhaler furosemide 0 2024- No 40mg QD Take [address] [facility] [address] (LASIX) 40 08 06-07 tablet (40 [facility] MG tablet 00:00: 23:59 mg total) Me dical 00 :00 by mouth Center in the morning. furosemide 2023- No 40mg QD Take [address] [facility] [address] (LASIX) 40 04-27-07 tablet (40 [facility] MG tablet 00:00: 23:59 mg total) Me dical 00 :00 by mouth Center in the morning. furosemide 2023- No 40mg QD Take [address] [facility] [address] (LASIX) 40 04-27-07 tablet (40 [facility] MG tablet 00:00: 23:59 mg total) Me dical 00 :00 by mouth Center in the morning. spironolact 2022- No Other 50mg QD Take [address] one 04-27-17 [facility] tablet (50 [facility] (ALDACTONE) 00:00: 00:00 mg total) Medical 50 MG 00 :00 by mouth Center tablet in the morning for 30 days. spironolact 2022- No Other 50mg QD Take [address] one 04-27- ascites tablet (50 [facility] (ALDACTONE) 00:00: 00:00 mg total) Medical 50 MG 00 :00 by mouth Center tablet in the morning for 30 days. spironolact 2022- No Other 50mg QD Take [address] one 04-27-08 [facility] tablet (50 [facility] (ALDACTONE) 00:00: 23:59 mg total) Medical 50 MG 00 :00 by mouth Center tablet in the morning for 30 days. spironolact 2022- No Other 50mg QD Take [address] one 04-20- ascites tablet (50 [facility] (ALDACTONE) 00:00: 00:00 mg total) Medical 50 MG 00 :00 by mouth Center tablet in the morning for 30 days. spironolact 2022- No Other 50mg QD Take [address] one 04-20-08 [facility] tablet (50 [facility] (ALDACTONE) 00:00: 00:00 mg total) Medical 50 MG 00 :00 by mouth Center tablet in the morning for 30 days. spironolact 2022- No Other 50mg QD Take [address] one 04-20-08 [facility] tablet (50 [facility] (ALDACTONE) 00:00: 00:00 mg total) Medical 50 MG 00 :00 by mouth Center tablet in the morning for 30 days. spironolact 2022-0 2022- No Other 50mg QD Take [address] one 04-04 [facility] tablet (50 [facility] (ALDACTONE) 00:00: 00:00 mg total) Medical 50 MG 00 :00 by mouth Center tablet in the morning for 90 days. spironolact 2022-0 2022- No Other 50mg QD Take [address] one 04-04 [facility] tablet (50 [facility] (ALDACTONE) 00:00: 00:00 mg total) Medical 50 MG 00 :00 by mouth Center tablet in the morning for 90 days. spironolact 2022-0 2022- No Other 50mg QD Take [address] one 04-04 [facility] tablet (50 [facility] (ALDACTONE) 00:00: 00:00 mg total) Medical 50 MG 00 :00 by mouth Center tablet in the morning for 90 days. lactulose 3-0 Yes QD Take by [facility] (CHRONULAC[facility] 5-11 mouth [facility] 10 gram/15 00:00: daily. Medic al mL solution 00 Center lactulose 2022-0 Yes QD Take by [facility] (CHRONULAC) 5-11 mouth [facility] 10 gram/15 00:00: daily. Medic al mL solution 00 Center lactulose 3-0 Yes QD Take by [facility] (CHRONULAC) 5-11 mouth [facility] 10 gram/15 00:00: daily. Medic al mL solution 00 Center furosemide 2022-0 3- No 40mg QD Take [address] [facility] (LASIX) 40 5-09 25-09 tablet (40 [facility] MG tablet 00:00: 00:00 mg total) Me dical 00 :00 by mouth Center in the morning. furosemide 2022-0 2022- No 40mg QD Take [address] [facility] (LASIX) 40 5- 06-09 tablet (40 [facility] MG tablet 00:00: 00:00 mg total) Me dical 00 :00 by mouth Center in the morning. furosemide 2022-0 2022- No 40mg QD Take [address] [facility] (LASIX) 40 5- 06-09 tablet (40 [facility] MG tablet 00:00: 00:00 mg total) Me dical 00 :00 by mouth Center in the morning. losartan 2023-0 Yes 100mg QD Take [address] [facility] (COZAAR) 3-21 tablet [facility] 100 MG 00:00: (100 mg Medical tablet 00 total) by Center mouth daily. losartan 2023-0 Yes 100mg QD Take [address] [facility] (COZAAR) 3-21 tablet [facility] 100 MG 00:00: (100 mg Medical tablet 00 total) by Center mouth daily. losartan 2023-0 Yes 100mg QD Take [address] (COZAAR) 3-21 tablet [facility] 100 MG 00:00: (100 mg Medical tablet 00 total) by Center mouth daily. TAKE 1 2-0 No 40 CAPSULE BY 8-16 MOUTH EVERY 00:00: DAY 00 TAKE 1 2022-0 No 40 CAPSULE BY 8-16 MOUTH EVERY 00:00: DAY 00 TAKE 1 2022-0 No 40 CAPSULE BY 8-16 MOUTH EVERY 00:00: DAY 00 lisinopril 2022-0 No 1mg 40 mg 7-20 tablet 00:00: 00 &lt 2022-0 No 10 7-20 00:00: 00 &lt 2022-0 No 40 7-18 00:00: 00 TAKE 1 2-0 No 40 TABLET BY 7-18 MOUTH EVERY 00:00: DAY 00 TAKE 1 2-0 No 500 TABLET BY 7-18 MOUTH TWICE 00:00: A DAY 00 Lasix 40 mg 2-0 No 1mg tablet 712 00:00: 00 TAKE 1 2-0 No 50 [...] DAY FOR 00 BLOOD PRESSURE TAKE 1 2-0 No TABLET BY 6-03 MOUTH TWICE 00:00: [...] No Unknown 1-29 00:00: 00 Xifaxan 550 2020-1 No 1mg mg tablet 1-11 00:00: 00 Dose 2020-0 No Unknown 6-28 00:00: 00 Dose 2020-0 No Unknown 6-28 00:00: 00 lisinopril 2020-0 No 1mg 40 mg 6-28 tablet 00:00: 00 OLANZapine 2020-0 Yes 10mg QD Take [facility] (ZYPREXA) 5-24 tablet (10 [facility] 10 MG 00:00: mg total) Medical tablet 00 by mouth Center nightly. OLANZapine [address] [facility] (ZYPREXA) 5-24 [facility] 10 MG 00:00: Medical tablet 00 [place] OLANZapine [address] [facility] [address] (ZYPREXA) 5-24 [facility] 10 MG 00:00: Medical tablet 00 Center OLANZapine [address] [facility] (ZYPREXA) 5-24 [facility] 10 MG 00:00: Medical tablet 00 [place] OLANZapine [address] [facility] (ZYPREXA) 5-24 [facility] 10 MG 00:00: Medical tablet 00 [place] OLANZapine 2020-[address] (ZYPREXA) 5-24 [facility] 10 MG 00:00: Medical tablet 00 Center OLANZapine 2020-[address] [facility] (ZYPREXA) 5-24 [facility] 10 MG 00:00: Medical tablet 00 Center OLANZapine 2020-[address] [facility] (ZYPREXA) 5-24 [facility] 10 MG 00:00: Medical tablet 00 [place] OLANZapine 2020-[address] [address] (ZYPREXA) 5-24 [facility] 10 MG 00:00: Medical tablet 00 [place] OLANZapine 2020-0 Yes 10mg QD Take 1 [facility] (ZYPREXA) 5-24 tablet (10 [facility] 10 MG 00:00: mg total) Medical tablet 00 by mouth Center nightly. OLANZapine 2020-0 Yes 10mg QD Take 1 [facility] (ZYPREXA) 5-24 tablet (10 [facility] 10 MG 00:00: mg total) Medical tablet 00 by mouth Center nightly. OLANZapine 2020-[address] (ZYPREXA) 5-24 [facility] 10 MG 00:00: Medical tablet 00 [place] OLANZapine 2020-[address] (ZYPREXA) 5-24 [facility] 10 MG 00:00: Medical tablet 00 [place] OLANZapine 2020-[address] (ZYPREXA) 5-24 [facility] 10 MG 00:00: Medical tablet 00 [place] omeprazole 2020-0 Yes 40mg QD [address] (PriLOSEC) 5-21 (40 mg [facility] 40 MG 00:00: total) Medical capsule 00 daily. [place] amLODIPine 2020-0 Yes 10mg QD Take 1 [facility] (NORVASC) 5-21 tablet (10 [facility] 10 MG 00:00: mg total) Medical tablet 00 by mouth Center daily. omeprazole 2020-[address] (PriLOSEC) 5-21 [facility] 40 MG 00:00: Medical capsule 00 [place] amLODIPine 2020-0 Yes 10mg QD Take [address] (NORVASC) 5-21 by mouth [facility] 10 MG 00:00: daily. Medical tablet 00 [place] omeprazole 2020-[address] (PriLOSEC) 5-21 [facility] 40 MG 00:00: Medical capsule 00 [place] amLODIPine 2020-0 Yes 10mg QD Take [address] (NORVASC) 5-21 by mouth [facility] 10 MG 00:00: daily. Medical tablet 00 [place] omeprazole [address] [facility] (PriLOSEC) 5-21 [facility] 40 MG 00:00: Medical capsule 00 [place] amLODIPine 2020-0 Yes 10mg QD Take [address] (NORVASC) 5-21 by mouth [facility] 10 MG 00:00: daily. Medical tablet 00 [place] omeprazole 2020-[address] (PriLOSEC) 5-21 [facility] 40 MG 00:00: Medical capsule 00 [place] amLODIPine 2020-0 Yes 10mg QD Take [address] (NORVASC) 5-21 by mouth [facility] 10 MG 00:00: daily. Medical tablet 00 [place] omeprazole 2020-[address] (PriLOSEC) 5-21 [facility] 40 MG 00:00: Medical capsule 00 [place] amLODIPine 2020-0 Yes 10mg QD Take [address] (NORVASC) 5-21 by mouth [facility] 10 MG 00:00: daily. Medical tablet 00 [place] omeprazole 2020-[address] (PriLOSEC) 5-21 [facility] 40 MG 00:00: Medical capsule 00 [place] amLODIPine 2020-0 Yes 10mg QD Take [address] (NORVASC) 5-21 by mouth [facility] 10 MG 00:00: daily. Medical tablet 00 [place] omeprazole 2020-[address] (PriLOSEC) 5-21 [facility] 40 MG 00:00: Medical capsule 00 [place] amLODIPine 2020-0 Yes 10mg QD Take [address] (NORVASC) 5-21 by mouth [facility] 10 MG 00:00: daily. Medical tablet 00 [place] omeprazole 2020-[address] (PriLOSEC) 5-21 [facility] 40 MG 00:00: Medical capsule 00 [place] amLODIPine 2020-0 Yes 10mg QD Take [address] (NORVASC) 5-21 by mouth [facility] 10 MG 00:00: daily. Medical tablet 00 [place] omeprazole 2020-0 Yes 40mg QD [address] [facility] (PriLOSEC) 5-21 (40 mg [facility] 40 MG 00:00: total) Medical capsule 00 daily. Center amLODIPine 2020-0 Yes 10mg QD Take 1 [facility] (NORVASC) 5-21 tablet (10 [facility] 10 MG 00:00: mg total) Medical tablet 00 by mouth Center daily. omeprazole 1-0 Yes 40mg QD [address] (PriLOSEC) 5-21 (40 mg [facility] 40 MG 00:00: total) Medical capsule 00 daily. Center amLODIPine 2020-0 Yes 10mg QD Take 1 [facility] (NORVASC) 5-21 tablet (10 [facility] 10 MG 00:00: mg total) Medical tablet 00 by mouth Center daily. omeprazole 1-[address] (PriLOSEC) 5-21 [facility] 40 MG 00:00: Medical capsule 00 Center amLODIPine 2020-0 Yes 10mg QD Take [address] (NORVASC) 5-21 by mouth [facility] 10 MG 00:00: daily. Medical tablet 00 [place] omeprazole 2020-[address] (PriLOSEC) 5-21 [facility] 40 MG 00:00: Medical capsule 00 [place] amLODIPine 2020-0 Yes 10mg QD Take [address] (NORVASC) 5-21 by mouth [facility] 10 MG 00:00: daily. Medical tablet 00 [place] omeprazole 2020-[address] (PriLOSEC) 5-21 [facility] 40 MG 00:00: Medical capsule 00 [place] amLODIPine 1-0 Yes 10mg QD Take [address] (NORVASC) 5-21 by mouth [facility] 10 MG 00:00: daily. Medical tablet 00 [place] lithium 300 1-0 Yes 300mg Q.5D Take [address] MG capsule 4-29 mg by [facility] 00:00: mouth 2 Medical 00 (two) Center times daily. lithium 300 2021-0 Yes 300mg Q.5D Take [address] MG capsule 4-29 mg by [facility] 00:00: mouth 2 Medical 00 (two) Center times daily. lithium 300 2021-0 Yes 300mg Q.5D Take [address] MG capsule 4-29 mg by [facility] 00:00: mouth 2 Medical 00 (two) Center times daily. lithium 300 2021-0 Yes 300mg Q.5D Take [address] MG capsule 4-29 mg by [facility] 00:00: mouth 2 Medical 00 (two) Center times daily. lithium 300 2021-0 Yes 300mg Q.5D Take [address] MG capsule 4-29 mg by [facility] 00:00: mouth 2 Medical 00 (two) Center times daily. lithium 300 2021-0 Yes 300mg Q.5D Take [address] MG capsule 4-29 mg by [facility] 00:00: mouth 2 Medical 00 (two) Center times daily. lithium 300 2021-0 Yes 300mg Q.5D Take [address] MG capsule 4-29 mg by [facility] 00:00: mouth 2 Medical 00 (two) Center times daily. lithium 300 2021-0 Yes 300mg Q.5D Take [address] MG capsule 4-29 mg by [facility] 00:00: mouth 2 Medical 00 (two) Center times daily. lithium 300 1-0 Yes 300mg Q.5D Take [address] MG capsule 4-29 mg by [facility] 00:00: mouth 2 Medical 00 (two) Center times daily. lithium 300 1-0 Yes 300mg Q.5D Take [address] MG capsule 4-29 mg by [facility] 00:00: mouth 2 Medical 00 (two) Center times daily. lithium 300 1-0 Yes 300mg Q.5D Take [address] MG capsule 4-29 mg by [facility] 00:00: mouth 2 Medical 00 (two) Center times daily. lithium 300 1-0 2023- No 300mg Q.5D Take [address] [facility] capsule 4-29 05-16 capsule [facility] 00:00: 00:00 (300 mg Medical 00 :00 total) by Center mouth in the morning and 1 capsule (300 mg total) before bedtime. lithium 300 2021-0 2023- No 300mg Q.5D Take [address] [facility] capsule 4-29 05-16 capsule [facility] 00:00: 00:00 (300 mg Medical 00 :00 total) by Center mouth in the morning and 1 capsule (300 mg total) before bedtime. lithium 300 2021-0 2023- No 300mg Q.5D Take [address] MG capsule 4-29 05-16 capsule [facility] 00:00: 00:00 (300 mg Medical 00 :00 total) by Center mouth in the morning and 1 capsule (300 mg total) before bedtime. lisinopriL 2021-0 Yes 40mg QD Take [address] (PRINIVIL,Z 4-18 by mouth Luke s ESTRIL) 40 00:00: daily. Medic al MG tablet 00 Center lisinopriL 2021-0 Yes 40mg QD Take [address] (PRINIVIL,Z 4-18 by mouth Luke s ESTRIL) 40 00:00: daily. Medic al MG tablet 00 Center lisinopriL 2021-0 Yes 40mg QD Take [address] (PRINIVIL,Z 4-18 by mouth Luke s ESTRIL) 40 00:00: daily. Medic al MG tablet 00 Center lisinopriL 2021-0 Yes 40mg QD Take [address] (PRINIVIL,Z 4-18 by mouth Luke s ESTRIL) 40 00:00: daily. Medic al MG tablet 00 Center lisinopriL 2021-0 Yes 40mg QD Take [address] (PRINIVIL,Z 4-18 by mouth Luke s ESTRIL) 40 00:00: daily. Medic al MG tablet 00 Center lisinopriL 2021-0 Yes 40mg QD Take [address] (PRINIVIL,Z 4-18 by mouth Luke s ESTRIL) 40 00:00: daily. Medic al MG tablet 00 Center lisinopriL 2021-0 Yes 40mg QD Take [address] (PRINIVIL,Z 4-18 by mouth Luke s ESTRIL) 40 00:00: daily. Medic al MG tablet 00 Center lisinopriL 2021-0 Yes 40mg QD Take [address] (PRINIVIL,Z 4-18 by mouth Luke s ESTRIL) 40 00:00: daily. Medic al MG tablet 00 Center lisinopriL 2021-0 Yes 40mg QD Take [address] (PRINIVIL,Z 4-18 by mouth Luke s ESTRIL) 40 00:00: daily. Medic al MG tablet 00 Center lisinopriL 2021-0 Yes 40mg QD Take [address] (PRINIVIL,Z 4-18 by mouth Luke s ESTRIL) 40 00:00: daily. Medic al MG tablet 00 Center lisinopriL 2021-0 Yes 40mg QD Take [address] (PRINIVIL,Z 4-18 by mouth Luke s ESTRIL) 40 00:00: daily. Medic al MG tablet 00 Center lisinopriL 2020-0 2023- No 40mg QD Take [address] [facility] (PRINIVIL,Z 4-18 05-16 by mouth María es ESTRIL) 40 00:00: 00:00 daily. [facility] MG tablet 00 :00 Center lisinopriL 2020-0 2023- No 40mg QD Take [address] [facility] (PRINIVIL,Z 4-18 05-16 by mouth María es ESTRIL) 40 00:00: 00:00 daily. [facility] MG tablet 00 :00 Center lisinopriL 2020-0 2023- No 40mg QD Take [address] [facility] (PRINIVIL,Z 4-18 05-16 by mouth María es ESTRIL) 40 00:00: 00:00 daily. [facility] MG tablet 00 :00 Center metoprolol 2020-0 Yes 50mg QD Take 1 [facility] tartrate 4-03 tablet (50 [facility] (LOPRESSOR) 00:00: mg total) M edical 50 MG 00 by mouth Center tablet daily. metoprolol 2020-0 Yes 50mg QD Take [address] tartrate 4-03 by mouth [facility] (LOPRESSOR) 00:00: daily. [facility] 50 MG 00 Center tablet metoprolol 2020-0 Yes 50mg QD Take [address] tartrate 4-03 by mouth [facility] (LOPRESSOR) 00:00: daily. [facility] 50 MG 00 Center tablet metoprolol 1-0 Yes 50mg QD Take [address] tartrate 4-03 by mouth [facility] (LOPRESSOR) 00:00: daily. [facility] [place] 50 MG 00 Center tablet metoprolol 1-0 Yes 50mg QD Take [address] tartrate 4-03 by mouth [facility] (LOPRESSOR) 00:00: daily. [facility] 50 MG 00 Center tablet metoprolol 2021-0 Yes 50mg QD Take [address] tartrate 4-03 by mouth [facility] (LOPRESSOR) 00:00: daily. [facility] 50 MG 00 Center tablet metoprolol 1-0 Yes 50mg QD Take [address] tartrate 4-03 by mouth [facility] (LOPRESSOR) 00:00: daily. [facility] 50 MG 00 Center tablet metoprolol 2020-0 Yes 50mg QD Take [address] tartrate 4-03 by mouth [facility] (LOPRESSOR) 00:00: daily. [facility] 50 MG 00 Center tablet metoprolol 1-0 Yes 50mg QD Take [address] tartrate 4-03 by mouth [facility] (LOPRESSOR) 00:00: daily. [facility]i [facility] 50 MG 00 Center tablet metoprolol 1-0 Yes 50mg QD Take [facility] tartrate 4-03 tablet (50 [facility] (LOPRESSOR) 00:00: mg total) M edical 50 MG 00 by mouth Center tablet daily. metoprolol 1-0 Yes 50mg QD Take [facility] tartrate 4-03 tablet (50 [facility] (LOPRESSOR) 00:00: mg total) M edical 50 MG 00 by mouth Center tablet daily. metoprolol 1-0 Yes 50mg QD Take 50 mg C [...] [place] 50 MG 00 Center tablet amlodipine 2020-0 No 1mg 10 mg 3-17 tablet 00:00: 00 metoprolol 1-0 No 1mg tartrate 50 3-17 mg tablet 00:00: 00 lisinopril 1-0 No 1mg 40 mg 1-28 tablet 00:00: 00 amlodipine 2020-1 No 1mg 10 mg 1-18 tablet 00:00: 00 metoprolol 2020-1 No 1mg tartrate 50 1-18 mg tablet 00:00: 00 lisinopril 2020-1 No 1mg [...] 50 9-09 mg tablet 00:00: 00 lisinopril 2020-0 No 1mg 40 mg 7-21 tablet 00:00: [...] 50 4-01 mg tablet 00:00: 00 lisinopril 2014-0 No 1mg 20 4-01 mg-hydrochl 00:00: orothiazide 00 12.5 mg tablet Depakote ER 2014-0 No 2mg 500 mg 4-01 tablet,exte 00:00: nded 00 release hydroxyzine 2014-0 No 1mg pamoate 25 4-01 mg capsule 00:00: 00 metoprolol 2013-0 No 1mg tartrate 50 9-02 mg tablet 00:00: 00 lisinopril 2013-0 No 1mg 20 9-02 mg-hydrochl 00:00: orothiazide 00 12.5 mg tablet Vital Signs Vital Name Observation Time Observation Value Comments Source HEIGHT 2021-04-16 09:45:00 162.6 cm WEIGHT 2021-04-16 09:45:00 76.839 kg HEIGHT 2021-04-16 09:45:00 162.6 cm WEIGHT 2021-04-16 09:45:00 76.839 kg Systolic blood 2023-06-14 19:00:00 142 mm[Hg] [facility] Diastolic blood 2023-06-14 19:00:00 68 mm[Hg] [facility] Heart rate 2023-06-14 19:00:00 62 /min [facility] Body temperature 2023-06-14 19:00:00 36.5 [facility] Respiratory rate 2023-06-14 19:00:00 14 /min [facility] Oxygen saturation in 2023-06-14 19:00:00 99 /min [facility] Arterial blood by Medical Ce nter Pulse oximetry Body height 2023-06-14 09:10:00 162.6 cm [facility] Body weight 2023-06-14 09:10:00 72.2 kg [facility] BMI 2023-06-14 09:10:00 27.32 kg/m2 [facility] Systolic blood 2023-05-29 09:19:00 106 mm[Hg] [facility] Diastolic blood 2023-05-29 09:19:00 67 mm[Hg] [facility] Heart rate 2023-05-29 09:19:00 66 /min [facility] Body temperature 2023-05-29 09:19:00 36.72 [facility] Body height 2023-05-29 09:19:00 162.6 cm [facility] Body weight 2023-05-29 09:19:00 72.213 kg [facility] BMI 2023-05-29 09:19:00 27.33 kg/m2 [facility] Oxygen saturation in 2023-05-29 09:19:00 99 /min [facility] Arterial blood by Medical Ce nter Pulse oximetry Respiratory rate 2023-04-12 11:12:00 18 /min [facility] Systolic blood 2023-01-24 13:41:00 148 mm[Hg] [facility] Diastolic blood 2023-01-24 13:41:00 68 mm[Hg] [facility] Heart rate 2023-01-24 13:41:00 78 /min [facility] Body temperature 2023-01-24 13:41:00 36.11 [facility] Respiratory rate 2023-01-24 13:41:00 18 /min [facility] Body weight 2023-01-24 13:41:00 70.398 kg [facility] BMI 2023-01-24 13:41:00 26.64 kg/m2 [facility] Oxygen saturation in 2023-01-24 13:41:00 96 /min [facility] Arterial blood by Medical Ce nter Pulse oximetry BP Systolic 2022-07-29 10:45:00 162 mm[Hg] BP [...] Respiratory Rate 2020-10-07 14:35:00 16.00 /min Procedures Procedure Date / Time Performed Performing Clinician Sourc e IR EMBOLIZATION ARTERIAL 2023-06-14 16:30:00 Vaishnavi Meyer [facility] ABORH, MANUAL 2023-06-14 10:16:00 Halina Canales [facility] CBC W/PLT COUNT & AUTO 2023-06-14 09:59:00 Elif Teran [facility] PROTHROMBIN TIME/INR 2023-06-14 09:59:00 Elif Teran [facility] APTT 2023-06-14 09:59:00 Elif Teran [facility] HEPATIC FUNCTION PANEL 2023-06-14 09:59:00 TeranElif burgos [facility] BASIC METABOLIC PANEL 2023-06-14 09:59:00 Elif Teran [facility] TYPE AND SCREEN, 2023-06-14 09:59:00 Pedro Wise [facility] CBC W/PLT COUNT & AUTO 2023-06-14 09:59:00 Elif Teran [facility] NM BONE SCAN WHOLE BODY 2023-05-18 13:42:00 Pollo Wagoner I [facility] MR ABDOMEN WITH & WITHOUT 2023-05-17 15:13:44 Ciaran [facility] IV CONTRAST [facility] Center CT CHEST WITH IV CONTRAST 2023-05-17 14:30:00 Ciaran [facility] CBC W/PLT COUNT & AUTO 2023-05-12 10:28:00 [facility] 2023-05-12 10:28:00 Pollo W[facility]er [facility] ALPHA FETOPROTEIN (AFP), 2023-05-12 10:28:00 Pollo Wagoner [facility] CBC W/PLT COUNT & AUTO 2023-05-12 10:28:[address] [facility] BASIC METABOLIC PANEL 2023-04-04 12:04:00 Jeffery [facility] HEPATIC FUNCTION PANEL 2023-04-04 12:04:00 Jeffery [facility] CBC W/PLT COUNT & AUTO 2023-04-04 12:04:00 Jeffery [facility] PROTHROMBIN TIME/INR 2023-04-04 12:04:00 Jeffery [facility] ALPHA FETOPROTEIN (AFP), 2023-04-04 12:04:00 Jeffery [facility] TUMOR [facility] CBC W/PLT COUNT & AUTO 2023-04-04 12:04:00 Jeffery El[facility] MR ABDOMEN WITH & WITHOUT 2023-03-14 10:00:00 Mayra Healy [facility] BASIC METABOLIC PANEL 2023-01-24 14:17:00 Mayra Healy [facility] HEPATIC FUNCTION PANEL 2023-01-24 14:17:00 Mayra Healy [facility] CBC W/PLT COUNT & AUTO 2023-01-24 14:17:00 Mayra Healy [facility] PROTHROMBIN TIME/INR 2023-01-24 14:17:00 Mayra Healy [facility] ALPHA FETOPROTEIN (AFP), 2023-01-24 14:17:[address] [facility] CBC W/PLT COUNT & AUTO 2023-01-24 14:17:[address] [facility] Plan of Care Planned Activity Planned Date Details Comments Source Future Scheduled 2023-07-21 Influenza Vaccine (#1) [facility] [code = Influenza Vaccine Me dical Center (#1)] Future Scheduled 2023-07-21 INFLUENZA VACCINE (Season [facility] 00:00:00 Ended) [code = INFLUENZA Med ical Center VACCINE (Season Ended)] Future Scheduled 2023-07-21 INFLUENZA VACCINE (Season [facility] 00:00:00 Ended) [code = INFLUENZA Med ical Center VACCINE (Season Ended)] Future Scheduled 2023-07-21 INFLUENZA VACCINE (Season [facility] 00:00:00 Ended) [code = INFLUENZA Med ical Center VACCINE (Season Ended)] Future Scheduled 2023-07-21 INFLUENZA VACCINE (Season [facility] 00:00:00 Ended) [code = INFLUENZA Med ical Center VACCINE (Season Ended)] Future Scheduled 2023-07-21 Influenza Vaccine (#1) [facility]00 [code = Influenza Vaccine Me dical Center (#1)] Future Scheduled 2023-07-21 Influenza Vaccine (#1) [facility] 00:00:00 [code = Influenza Vaccine Me dical Center (#1)] Future Scheduled 2022-11-[address] [facility] 00:00:00 (12+) [code = DEPRESSION Med ical Center SCREENING (12+)] Future Scheduled 2022-11-[address] [facility] 00:00:00 (12+) [code = DEPRESSION Med ical Center SCREENING (12+)] Future Scheduled 2022-11-[address] [facility] 00:00:00 (12+) [code = DEPRESSION Med ical Center SCREENING (12+)] Future Scheduled 2022-11-[address] [facility] 00:00:00 (12+) [code = DEPRESSION Med ical Center SCREENING (12+)] Future Scheduled 2022-11-[address] [facility] 00:00:00 (12+) [code = DEPRESSION Med ical Center SCREENING (12+)] Future Scheduled 2022-11-[address] [facility] 00:00:00 (12+) [code = DEPRESSION Med ical Center SCREENING (12+)] Future Scheduled 2022-11-[address] [facility] 00:00:00 (12+) [code = DEPRESSION Med ical Center SCREENING (12+)] Future Scheduled 2022-11-[address] [facility] 00:00:00 (12+) [code = DEPRESSION Med ical Center SCREENING (12+)] Future Scheduled 2022-07-21 INFLUENZA VACCINE (#1) [facility] 00:00:00 [code = INFLUENZA VACCINE Me dical Center (#1)] Future Scheduled 2022-07-21 INFLUENZA VACCINE (#1) [facility] 00:00:00 [code = INFLUENZA VACCINE Me dical Center (#1)] Future Scheduled 2022-07-21 INFLUENZA VACCINE (#1) [facility] 00:00:00 [code = INFLUENZA VACCINE Me dical Center (#1)] Future Scheduled 2022-07-21 INFLUENZA VACCINE (#1) [facility] 00:00:00 [code = INFLUENZA VACCINE Me dical Center (#1)] Future Scheduled 2022-07-21 INFLUENZA VACCINE (#1) [facility] 00:00:00 [code = INFLUENZA VACCINE Me dical Center (#1)] Future Scheduled 2022-07-21 INFLUENZA VACCINE (#1) [facility] 00:00:00 [code = INFLUENZA VACCINE Me dical Center (#1)] Future Scheduled 2022-07-21 INFLUENZA VACCINE (#1) [facility] 00:00:00 [code = INFLUENZA VACCINE Me dical Center (#1)] Future Scheduled 2022-04-[address] [facility] 00:00:00 Counseling and Screening Med ical Center (12+) [code = Tobacco Cessation Counseling and Screening (12+)] Future Scheduled 2022-04-[address] [facility] 00:00:00 Counseling and Screening Med ical Center (12+) [code = Tobacco Cessation Counseling and Screening (12+)] Future Scheduled 2021-11-[address] [facility] 00:00:00 (12+) [code = DEPRESSION Med ical Center SCREENING (12+)] Future Scheduled 2021-11-[address] [facility] 00:00:00 (12+) [code = DEPRESSION Med ical Center SCREENING (12+)] Future Scheduled 2021-11-[address] [facility] 00:00:00 (12+) [code = DEPRESSION Med ical Center SCREENING (12+)] Future Scheduled 2012 SHINGLES VACCINES [facility] 2) [code = SHINGLES [facility] Center VACCINES (1 of 2)] Future Scheduled 2012 SHINGLES VACCINES ([address] [facility] 00:00:00 2) [code = SHINGLES [facility] Center VACCINES (1 of 2)] Future Scheduled 2007 Lipid panel (procedure) [facility] 00:00:00 [code = [id number]] Medical Ce nter Future Scheduled 2007 Lipid panel (procedure) [facility] 00:00:00 [code = 82343059] Medical Ce nter Future Scheduled 2007 Lipid panel (procedure) [facility] 00:00:00 [code = [id number]] Medical Ce nter Future Scheduled 2007 Lipid panel (procedure) [facility] 00:00:00 [code = [id number]] Medical Ce nter Future Scheduled 2007 Lipid panel (procedure) [facility] 00:00:00 [code = 46200204] Medical Ce nter Future Scheduled 2007 Lipid panel (procedure) [facility] 00:00:00 [code = 63813612] Medical Ce nter Future Scheduled 2007 Lipid panel (procedure) [facility] 00:00:00 [code = 81634616] Medical Ce nter Future Scheduled 2007 Lipid panel (procedure) [facility] 00:00:00 [code = 09758654] Medical Ce nter Future Scheduled 2007 Lipid panel (procedure) [facility] 00:00:00 [code = 96893437] Medical Ce nter Future Scheduled 2007 Lipid panel (procedure) [facility] 00:00:00 [code = 19663975] Medical Ce nter Future Scheduled 2007 Lipid panel (procedure) [facility] 00:00:00 [code = [id number]] Medical Ce nter Future Scheduled 2007 Lipid panel (procedure) [facility] 00:00:00 [code = 81573613] Medical Ce nter Future Scheduled 2007 Lipid panel (procedure) [facility] 00:00:00 [code = 71346625] Medical Ce nter Future Scheduled 2007 Lipid panel (procedure) [facility] 00:00:00 [code = 31712044] Medical Ce nter Future Scheduled 1983 Screening for malignant [facility] 00:00:00 neoplasm of cervix Medical C enter (procedure) [code = 497611687] Future Scheduled 1983 Screening for malignant [facility] 00:00:00 neoplasm of cervix Medical C enter (procedure) [code = 478511812] Future Scheduled 1983 Screening for malignant [facility] 00:00:00 neoplasm of cervix Medical C enter (procedure) [code = 119774789] Future Scheduled 1983 Screening for malignant [facility] 00:00:00 neoplasm of cervix Medical C enter (procedure) [code = 618699504] Future Scheduled 1983 Screening for malignant [facility] 00:00:00 neoplasm of cervix Medical C enter (procedure) [code = 571100684] Future Scheduled 1983 Screening for malignant [facility] 00:00:00 neoplasm of cervix Medical C enter (procedure) [code = 566531921] Future Scheduled 1983 Screening for malignant [facility] 00:00:00 neoplasm of cervix Medical C enter (procedure) [code = 898705977] Future Scheduled 1983 Screening for malignant [facility] 00:00:00 neoplasm of cervix Medical C enter (procedure) [code = 940703098] Future Scheduled 1983 Screening for malignant [facility] 00:00:00 neoplasm of cervix Medical C enter (procedure) [code = 520049973] Future Scheduled 1983 Screening for malignant [facility] 00:00:00 neoplasm of cervix Medical C enter (procedure) [code = 926384483] Future Scheduled 1983 Screening for malignant [facility] 00:00:00 neoplasm of cervix Medical C enter (procedure) [code = 177323733] Future Scheduled 1983 Screening for malignant [facility] 00:00:00 neoplasm of cervix Medical C enter (procedure) [code = 789927264] Future Scheduled 1983 Screening for malignant [facility] 00:00:00 neoplasm of cervix Medical C enter (procedure) [code = 475423126] Future Scheduled 1983 Screening for malignant [facility] 00:00:00 neoplasm of cervix Medical C enter (procedure) [code = 932019257] Future Scheduled 1981 DTAP/TDAP/TD VACCINES ([address] [facility] 00:00:00 - Tdap) [code = Medical Cent er DTAP/TDAP/TD VACCINES (1 - Tdap)] Future Scheduled 1981 DTAP/TDAP/TD VACCINES ([address] [facility] 00:00:00 - Tdap) [code = Medical Cent er DTAP/TDAP/TD VACCINES (1 - Tdap)] Future Scheduled 1981 DTAP/TDAP/TD VACCINES ([address] [facility] 00:00:00 - Tdap) [code = Medical Cent er DTAP/TDAP/TD VACCINES (1 - Tdap)] Future Scheduled 1981 DTAP/TDAP/TD VACCINES ([address] [facility] 00:00:00 - Tdap) [code = Medical Cent er DTAP/TDAP/TD VACCINES (1 - Tdap)] Future Scheduled 1981 DTAP/TDAP/TD VACCINES ([address] [facility] 00:00:00 - Tdap) [code = Medical Cent er DTAP/TDAP/TD VACCINES (1 - Tdap)] Future Scheduled 1981 DTAP/TDAP/TD VACCINES ([address] [facility] 00:00:00 - Tdap) [code = Medical Cent er DTAP/TDAP/TD VACCINES (1 - Tdap)] Future Scheduled 1981 DTAP/TDAP/TD VACCINES ([address] [facility] 00:00:00 - Tdap) [code = Medical Cent er DTAP/TDAP/TD VACCINES (1 - Tdap)] Future Scheduled 1981 DTAP/TDAP/TD VACCINES ([address] [facility] 00:00:00 - Tdap) [code = Medical Cent er DTAP/TDAP/TD VACCINES (1 - Tdap)] Future Scheduled 1981 DTAP/TDAP/TD VACCINES ([address] [facility] 00:00:00 - Tdap) [code = Medical Cent er DTAP/TDAP/TD VACCINES (1 - Tdap)] Future Scheduled 1981 DTAP/TDAP/TD VACCINES ([address] [facility] 00:00:00 - Tdap) [code = Medical Cent er DTAP/TDAP/TD VACCINES (1 - Tdap)] Future Scheduled 1981 DTAP/TDAP/TD VACCINES ([address] [facility] 00:00:00 - Tdap) [code = Medical Cent er DTAP/TDAP/TD VACCINES (1 - Tdap)] Future Scheduled 1981 DTAP/TDAP/TD VACCINES ([address] [facility] 00:00:00 - Tdap) [code = Medical Cent er DTAP/TDAP/TD VACCINES (1 - Tdap)] Future Scheduled 1981 DTAP/TDAP/TD VACCINES ([address] [facility] 00:00:00 - Tdap) [code = Medical Cent er DTAP/TDAP/TD VACCINES (1 - Tdap)] Future Scheduled 1981 DTAP/TDAP/TD VACCINES ([address] [facility] 00:00:00 - Tdap) [code = Medical Cent er DTAP/TDAP/TD VACCINES (1 - Tdap)] Future Scheduled [address] [facility] 00:00:00 virus screening Medical Cent er (procedure) [code = 206052469] Future Scheduled [address] Human [address] [facility] 00:00:00 virus screening Medical Cent er (procedure) [code = 398187123] Future Scheduled [address] [facility] 00:00:00 Counseling and Screening [facility] (12+) [code = Tobacco Cessation Counseling and Screening (12+)] Future Scheduled [address] [facility] 00:00:00 Counseling and Screening [facility] (12+) [code = Tobacco Cessation Counseling and Screening (12+)] Future Scheduled [address] [facility] 00:00:00 Counseling and Screening Med ical Center (12+) [code = Tobacco Cessation Counseling and Screening (12+)] Future Scheduled [address] [facility] 00:00:00 Counseling and Screening Med ical Center (12+) [code = Tobacco Cessation Counseling and Screening (12+)] Future Scheduled [address] [facility] 00:00:00 Counseling and Screening Med ical Center (12+) [code = Tobacco Cessation Counseling and Screening (12+)] Future Scheduled [address] [facility] 00:00:00 Counseling and Screening Med ical Center (12+) [code = Tobacco Cessation Counseling and Screening (12+)] Future Scheduled [address] [facility] 00:00:00 Counseling and Screening Med ical Center (12+) [code = Tobacco Cessation Counseling and Screening (12+)] Future Scheduled [address] [facility] 00:00:00 Counseling and Screening Med ical Center (12+) [code = Tobacco Cessation Counseling and Screening (12+)] Future Scheduled [address] [facility] 00:00:00 Counseling and Screening Med ical Center (12+) [code = Tobacco Cessation Counseling and Screening (12+)] Future Scheduled [address] [facility] 00:00:00 Counseling and Screening Med ical Center (12+) [code = Tobacco Cessation Counseling and Screening (12+)] Future Scheduled 1968 Pneumococcal Vaccine: [facility]:00 0-64 Years (1 - PCV) Medical Center [code = Pneumococcal Vaccine: 0-64 Years (1 - PCV)] Future Scheduled 1968 PNEUMOCOCCAL VACCINE 0-[address] [facility] 00:00:00 YRS (1 - PCV) [code = Medica l Center PNEUMOCOCCAL VACCINE 0-64 YRS (1 - PCV)] Future Scheduled 1968 PNEUMOCOCCAL VACCINE 0-[address] [facility] 00:00:00 YRS (1 - PCV) [code = Medica l Center PNEUMOCOCCAL VACCINE 0-64 YRS (1 - PCV)] Future Scheduled 1968 PNEUMOCOCCAL VACCINE 0-[address] [facility] 00:00:00 YRS (1 - PCV) [code = Medica l Center PNEUMOCOCCAL VACCINE 0-64 YRS (1 - PCV)] Future Scheduled 1968 PNEUMOCOCCAL VACCINE 0-[address] [facility] 00:00:00 YRS (1 - PCV) [code = Medica l Center PNEUMOCOCCAL VACCINE 0-64 YRS (1 - PCV)] Future Scheduled 1968 PNEUMOCOCCAL VACCINE 0-[address] [facility] 00:00:00 YRS (1 - PCV) [code = Medica l Center PNEUMOCOCCAL VACCINE 0-64 YRS (1 - PCV)] Future Scheduled 1968 PNEUMOCOCCAL VACCINE 0-[address] [facility] 00:00:00 YRS (1 - PCV) [code = Medica l Center PNEUMOCOCCAL VACCINE 0-64 YRS (1 - PCV)] Future Scheduled 1968 PNEUMOCOCCAL VACCINE 0-[address] [facility] 00:00:00 YRS (1 - PCV) [code = Medica l Center PNEUMOCOCCAL VACCINE 0-64 YRS (1 - PCV)] Future Scheduled 1968 PNEUMOCOCCAL VACCINE 0-[address] [facility] 00:00:00 YRS (1 - PCV) [code = Medica l Center PNEUMOCOCCAL VACCINE 0-64 YRS (1 - PCV)] Future Scheduled 1968 Pneumococcal Vaccine: [facility] 00:[facility]:00 0-64 Years (1 - PCV) Medical Center [code = Pneumococcal Vaccine: 0-64 Years (1 - PCV)] Future Scheduled 1968 PNEUMOCOCCAL VACCINE 0-[address] [facility] 00:00:00 YRS (1 - PCV) [code = Medica l Center PNEUMOCOCCAL VACCINE 0-64 YRS (1 - PCV)] Future Scheduled 1968 Pneumococcal Vaccine: [facility] 00:00:00 0-64 Years (1 - PCV) Medical Center [code = Pneumococcal Vaccine: 0-64 Years (1 - PCV)] Future Scheduled 1968 PNEUMOCOCCAL VACCINE 0-[address] [facility] 00:00:00 YRS (1 - PCV) [code = Medica l Center PNEUMOCOCCAL VACCINE 0-64 YRS (1 - PCV)] Future Scheduled 1968 PNEUMOCOCCAL VACCINE 0-[address] [facility] 00:00:00 YRS (1 - PCV) [code = Medica l Center PNEUMOCOCCAL VACCINE 0-64 YRS (1 - PCV)] Future Scheduled 1962 COVID-19 VACCINE (#1) [facility]:00 [code = COVID-19 VACCINE Med ical Center (#1)] Future Scheduled 1962 COVID-19 VACCINE (#1) [facility]:00 [code = COVID-19 VACCINE Med ical Center (#1)] Future Scheduled 1962 COVID-19 VACCINE (#1) [facility]:00 [code = COVID-19 VACCINE Med ical Center (#1)] Future Scheduled 1962 COVID-19 VACCINE (#1) [facility]:00 [code = COVID-19 VACCINE Med ical Center (#1)] Future Scheduled 1962 COVID-19 VACCINE (#1) [facility]:00 [code = COVID-19 VACCINE Med ical Center (#1)] Future Scheduled 1962 COVID-19 VACCINE (#1) [facility]:00:00 [code = COVID-19 VACCINE Med ical Center (#1)] Future Scheduled 1962 COVID-19 VACCINE (#1) [facility]:00:00 [code = COVID-19 VACCINE Med ical Center (#1)] Future Scheduled 1962 COVID-19 VACCINE (#1) [facility]:00:00 [code = COVID-19 VACCINE Med ical Center (#1)] Future Scheduled 1962 COVID-19 VACCINE (#1) [facility]:00:00 [code = COVID-19 VACCINE Med ical Center (#1)] Future Scheduled 1962 COVID-19 VACCINE (#1) [facility]:00:00 [code = COVID-19 VACCINE Med ical Center (#1)] Future Scheduled 1962 COVID-19 VACCINE (#1) [facility]:00:00 [code = COVID-19 VACCINE Med ical Center (#1)] Future Scheduled 1962 COVID-19 VACCINE (#1) [facility]:00:00 [code = COVID-19 VACCINE Med ical Center (#1)] Future Scheduled 1962 COVID-19 VACCINE (#1) [facility]:00:00 [code = COVID-19 VACCINE Med ical Center (#1)] Future Scheduled 1962 COVID-19 VACCINE (#1) [facility]:00 [code = COVID-19 VACCINE Med ical Center (#1)] Future Scheduled 1962 Screening for malignant [facility] 00:00:00 neoplasm of breast Medical C enter (procedure) [code = 989500694] Future Scheduled 1962 CT Colonography (combo) [facility] 00:00:00 [code = [facility] ([facility])] Future Scheduled 1962 Screening for malignant [facility] 00:00:00 neoplasm of colon Medical Ce nter (procedure) [code = 966193920] Future Scheduled 1962 Screening for malignant [facility] 00:00:00 neoplasm of colon Medical Ce nter (procedure) [code = 996541981] Future Scheduled 1962 Screening for malignant [facility] 00:00:00 neoplasm of colon Medical Ce nter (procedure) [code = 780574956] Future Scheduled 1962 Screening for malignant [facility] 00:00:00 neoplasm of colon Medical Ce nter (procedure) [code = 179612819] Future Scheduled 1962 Sigmoidoscopy [code = [facility] S[facility]oidoscopy] Medical Cente r Future Scheduled 1962 CT Colonography (combo) [facility] 00:00:00 [code = CT [facility] (combo)] Future Scheduled 1962 Screening for malignant [facility] 00:00:00 neoplasm of colon Medical Ce nter (procedure) [code = 643624717] Future Scheduled 1962 Screening for malignant [facility] 00:00:00 neoplasm of colon Medical Ce nter (procedure) [code = 592717558] Future Scheduled 1962 Screening for malignant [facility] 00:00:00 neoplasm of colon Medical Ce nter (procedure) [code = 665459946] Future Scheduled 1962 Screening for malignant [facility] 00:00:00 neoplasm of colon Medical Ce nter (procedure) [code = 771595928] Future Scheduled 1962 Sigmoidoscopy [code = [facility] Sigmoidoscopy] Medical Cente r Future Scheduled 1962 Screening for malignant [facility] 00:00:00 neoplasm of breast Medical C enter (procedure) [code = 280670047] Future Scheduled 1962 CT Colonography (combo) [facility] 00:00:00 [code = CT [facility] (combo)] Future Scheduled 1962 Screening for malignant [facility] 00:00:00 neoplasm of colon Medical Ce nter (procedure) [code = 874138392] Future Scheduled 1962 Screening for malignant [facility] 00:00:00 neoplasm of colon Medical Ce nter (procedure) [code = 651155250] Future Scheduled 1962 Screening for malignant [facility] 00:00:00 neoplasm of colon Medical Ce nter (procedure) [code = 567642485] Future Scheduled 1962 Screening for malignant [facility] 00:00:00 neoplasm of colon Medical Ce nter (procedure) [code = 504140463] Future Scheduled 1962 Sigmoidoscopy [code = [facility] Sigmoidoscopy] Medical Cente r Future Scheduled 1962 Screening for malignant [facility] 00:00:00 neoplasm of breast Medical C enter (procedure) [code = 092909864] Future Scheduled 1962 CT Colonography (combo) [facility] 00:00:00 [code = CT [facility] (combo)] Future Scheduled 1962 Screening for malignant [facility] 00:00:00 neoplasm of colon Medical Ce nter (procedure) [code = 750970865] Future Scheduled 1962 Screening for malignant [facility] 00:00:00 neoplasm of colon Medical Ce nter (procedure) [code = 437841007] Future Scheduled 1962 Screening for malignant [facility] 00:00:00 neoplasm of colon Medical Ce nter (procedure) [code = 365712231] Future Scheduled 1962 Screening for malignant [facility] 00:00:00 neoplasm of colon Medical Ce nter (procedure) [code = 785030781] Future Scheduled 1962 Sigmoidoscopy [code = [facility] Sigmoidoscopy] Medical Cente r Future Scheduled 1962 Screening for malignant [facility] 00:00:00 neoplasm of breast Medical C enter (procedure) [code = 732069089] Future Scheduled 1962 CT Colonography (combo) [facility] 00:00:00 [code = CT [facility]ography [facility] (combo)] Future Scheduled 1962 Screening for malignant [facility] 00:00:00 neoplasm of colon Medical Ce nter (procedure) [code = 546221393] Future Scheduled 1962 Screening for malignant [facility] 00:00:00 neoplasm of colon Medical Ce nter (procedure) [code = 356452175] Future Scheduled 1962 Screening for malignant [facility] 00:00:00 neoplasm of colon Medical Ce nter (procedure) [code = 373697707] Future Scheduled 1962 Screening for malignant [facility] 00:00:00 neoplasm of colon Medical Ce nter (procedure) [code = 551434766] Future Scheduled 1962 Sigmoidoscopy [code = [facility] Sigmoidoscopy] Medical Cente r Future Scheduled 1962 Screening for malignant [facility] 00:00:00 neoplasm of breast Medical C enter (procedure) [code = 983478976] Future Scheduled 1962 CT Colonography (combo) [facility] 00:00:00 [code = CT Colonography [facility] (combo)] Future Scheduled 1962 Screening for malignant [facility] 00:00:00 neoplasm of colon Medical Ce nter (procedure) [code = 586161625] Future Scheduled 1962 Screening for malignant [facility] 00:00:00 neoplasm of colon Medical Ce nter (procedure) [code = 204956729] Future Scheduled 1962 Screening for malignant [facility] 00:00:00 neoplasm of colon Medical Ce nter (procedure) [code = 714387585] Future Scheduled 1962 Screening for malignant [facility] 00:00:00 neoplasm of colon Medical Ce nter (procedure) [code = 118539812] Future Scheduled 1962 Sigmoidoscopy [code = [facility] Sigmoidoscopy] Medical Cente r Future Scheduled 1962 Screening for malignant [facility] 00:00:00 neoplasm of breast Medical C enter (procedure) [code = 530529962] Future Scheduled 1962 CT Colonography (combo) [facility] 00:00:00 [code = CT Colonography [facility] (com[facility])] Future Scheduled 1962 Screening for malignant [facility] 00:00:00 neoplasm of colon Medical Ce nter (procedure) [code = 374641582] Future Scheduled 1962 Screening for malignant [facility] 00:00:00 neoplasm of colon Medical Ce nter (procedure) [code = 596057391] Future Scheduled 1962 Screening for malignant [facility] 00:00:00 neoplasm of colon Medical Ce nter (procedure) [code = 425514105] Future Scheduled 1962 [facility] [facility] neoplasm of colon Medical Ce nter (procedure) [code = 410917285] Future Scheduled 1960 S[facility]oid[facility]code [facility]] [facility] Cent[facility] Future Scheduled 1962 Screening for malignant [facility] 00:[facility]:00 neoplasm of breast Medical C enter (procedure) [code = 829205570] Future Scheduled 1962 CT Colonography (combo) [facility] 00[facility] [code = CT [facility] ([facility])] Future Scheduled 1962 Screening for malignant [facility] 00:[facility]:00 neoplasm of colon Medical Ce nter (procedure) [code = 497092743] Future Scheduled 1962 Screening for malignant [facility] 00:00:00 neoplasm of colon Medical Ce nter (procedure) [code = 703763802] Future Scheduled 1962 Screening for malignant [facility] 00:00:00 neoplasm of colon Medical Ce nter (procedure) [code = 222759253] Future Scheduled 1962 Screening for malignant [facility] 00:00:00 neoplasm of colon Medical Ce nter (procedure) [code = 896640387] Future Scheduled 1962 S[facility]oidoscopy [facility]code [facility]oscopy] Medical Cente r Future Scheduled 1962 Screening for malignant [facility] 00:00:00 neoplasm of breast Medical C enter (procedure) [code = 984698972] Future Scheduled 1962 CT Colonography (combo) [facility] 00:[facility]:00 [code = CT Colonography [facility] (combo)] Future Scheduled 1962 Screening for malignant [facility] 00:00:00 neoplasm of colon Medical Ce nter (procedure) [code = 399744303] Future Scheduled 1962 Screening for malignant [facility] 00:00:00 neoplasm of colon Medical Ce nter (procedure) [code = 933909203] Future Scheduled 1962 Screening for malignant [facility] 00:00:00 neoplasm of colon Medical Ce nter (procedure) [code = 179607528] Future Scheduled 1962 Screening for malignant [facility] 00:00:00 neoplasm of colon Medical Ce nter (procedure) [code = 252670641] Future Scheduled 1962 Sigmoidoscopy [facility]code [facility]oscopy] Medical Cente r Future Scheduled 1962 Screening for malignant [facility] 00:00:00 neoplasm of breast Medical C enter (procedure) [code = 304746023] Future Scheduled 1962 CT Colonography (combo) [facility] 00:00:00 [code = CT [facility] ([facility])] Future Scheduled 1962 Screening for malignant [facility] 00:00:00 neoplasm of colon Medical Ce nter (procedure) [code = 956961757] Future Scheduled 1962 Screening for malignant [facility] 00:00:00 neoplasm of colon Medical Ce nter (procedure) [code = 365564426] Future Scheduled 1962 Screening for malignant [facility] 00:00:00 neoplasm of colon Medical Ce nter (procedure) [code = 545473329] Future Scheduled 1962 Screening for malignant [facility] 00:00:00 neoplasm of colon Medical Ce nter (procedure) [code = 634501848] Future Scheduled 1962 S[facility]oidoscopy [facility]code [facility]oscopy] Medical Cente r Future Scheduled 1962 Screening for malignant [facility] 00:00:00 neoplasm of breast Medical C enter (procedure) [code = 040279617] Future Scheduled 1962 CT Colonography (combo) [facility] 00:00:00 [code = CT Colonography [facility] (combo)] Future Scheduled 1962 Screening for malignant [facility] 00:00:00 neoplasm of colon Medical Ce nter (procedure) [code = 797519679] Future Scheduled 1962 Screening for malignant [facility] 00:00:00 neoplasm of colon Medical Ce nter (procedure) [code = 898534587] Future Scheduled 1962 Screening for malignant [facility] 00:00:00 neoplasm of colon Medical Ce nter (procedure) [code = 752002457] Future Scheduled 1962 Screening for malignant [facility] 00:00:00 neoplasm of colon Medical Ce nter (procedure) [code = 883438991] Future Scheduled 1962 S[facility]oidoscopy [facility]code [facility]oscopy] Medical Cente r Future Scheduled 1962 Screening for malignant [facility] 00:00:00 neoplasm of breast Medical C enter (procedure) [code = 465668959] Future Scheduled 1962 CT Colonography (combo) [facility] 00:00:00 [code = CT Colonography [facility] (combo)] Future Scheduled 1962 Screening for malignant [facility] 00:00:00 neoplasm of colon Medical Ce nter (procedure) [code = 505607466] Future Scheduled 1962 Screening for malignant [facility] 00:00:00 neoplasm of colon Medical Ce nter (procedure) [code = 012780297] Future Scheduled 1962 Screening for malignant [facility] 00:00:00 neoplasm of colon Medical Ce nter (procedure) [code = 621340447] Future Scheduled 1962 Screening for malignant [facility] 00:00:00 neoplasm of colon Medical Ce nter (procedure) [code = 374861669] Future Scheduled 1962 S[facility]oidoscopy [facility]code [facility]] [facility] Future Scheduled 1962 Screening for malignant [facility] 00:00:00 neoplasm of breast Medical C enter (procedure) [code = 725506536] Future Scheduled 1962 CT Colonography (combo) [facility] 00:00:00 [code = CT Colonography [facility] (combo)] Future Scheduled 1962 Screening for malignant [facility] 00:00:00 neoplasm of colon Medical Ce nter (procedure) [code = 720058521] Future Scheduled 1962 Screening for malignant [facility] 00:00:00 neoplasm of colon Medical Ce nter (procedure) [code = 152312203] Future Scheduled 1962 Screening for malignant [facility] 00:00:00 neoplasm of colon Medical Ce nter (procedure) [code = 302441411] Future Scheduled 1962 Screening for malignant [facility] 00:00:00 neoplasm of colon Medical Ce nter (procedure) [code = 715325477] Future Scheduled 1962 S[facility]oidoscopy [facility]code [facility]] Medical Cente r Future Scheduled 1962 Screening for malignant [facility] 00:00:00 neoplasm of breast Medical C enter (procedure) [code = 919313181] Future Scheduled 1962 CT Colonography (combo) [facility] 00:00:00 [code = CT Colonography [facility] (combo)] Future Scheduled 1962 Screening for malignant [facility] 00:00:00 neoplasm of colon Medical Ce nter (procedure) [code = 420089102] Future Scheduled 1962 Screening for malignant [facility] 00:00:00 neoplasm of colon Medical Ce nter (procedure) [code = 279638889] Future Scheduled 1962 Screening for malignant [facility] 00:00:00 neoplasm of colon Medical Ce nter (procedure) [code = 074017986] Future Scheduled 1962 Screening for malignant [facility] 00:00:00 neoplasm of colon Medical Ce nter (procedure) [code = 312890304] Future Scheduled 1962 Sigmoidoscopy [code = [facility]] Medical Cente r Future Scheduled 1962 Screening for malignant [facility] 00:00:00 neoplasm of breast Medical C enter (procedure) [code = 069556288] Goal Plan of Care Note [code = 48702-5] Goal Plan of Care Note [code = 81893-2] Goal Plan of Care Note [code = 31080-6] Goal Plan of Care Note [code = 81368-9] Goal Plan of Care Note [code = 22084-8] Goal Plan of Care Note [code = 40341-7] Goal Plan of Care Note [code = 16772-9] Goal Plan of Care Note [code = 84831-2] Goal Plan of Care Note [code = 99483-5] Goal Plan of Care Note [code = 47028-4] Goal Plan of Care Note [code = 96354-6] Goal Plan of Care Note [code = 89070-0] Goal Plan of Care Note [code = 55699-0] Goal Plan of Care Note [code = 16205-5] Goal Plan of Care Note [code = 98984-2] Goal Plan of Care Note [code = 02201-3] Goal Plan of Care Note [code = 72330-1] Goal Plan of Care Note [code = 61276-5] Goal Plan of Care Note [code = 68636-3] Goal Plan of Care Note [code = 58337-1] Goal Plan of Care Note [code = 95769-7] Goal Plan of Care Note [code = 53742-3] Goal Plan of Care Note [code = 99222-6] Goal Plan of Care Note [code = 92470-9] Goal Plan of Care Note [code = 98161-5] Goal Plan of Care Note [code = 04251-3] Goal Plan of Care Note [code = 12114-0] Goal Plan of Care Note [code = 69215-1] Goal Plan of Care Note [code = 20550-5] Goal Plan of Care Note [code = 86122-6] Goal Plan of Care Note [code = 17427-8] Goal Plan of Care Note [code = 61802-5] Goal Plan of Care Note [code = 45286-2] Goal Plan of Care Note [code = 66664-1] Goal Plan of Care Note [code = 85059-5] Encounters Start End Encounter Admission Attending Care Care Encounter Source Date/Time Date/Time Type Type Clinicians Facility Department ID 2023-09-13 2023-09-13 Telephone Ciaran [facility] [id number] LYNN Martinez 00:00:00 00:00:00 [facility] 2023-07-11 2023-07-11 Telephone Ciaran [facility] [id number] LYNN Martinez 00:00:00 00:00:00 [facility] 2023-06-15 2023-06-15 Telephone Valente Glover [facility] [id number] 00:00:00 00:00:00 [facility] 2023-06-15 2023-06-15 Valente Peña [facility] [id number] 00:00:00 00:00:00 [facility] 2023-06-14 2023-06-14 [facility] [id number] 11:00:00 23:59:00 Encounter [facility] 2023-06-14 2023-06-14 [facility] [id number] 08:25:00 19:20:00 Encounter [facility] 2023-06-14 2023-06-14 Surgery Virtual, [facility] [id number] 11:00:00 11:30:00 [facility] 2023-06-14 2023-06-14 Travel [facility] [id number] [facility] 00:00:00 00:00:00 [facility] 2023-06-13 2023-06-13 [facility] Monet [facility] [id number] 00:00:00 00:00:00 [facility] 2023-06-07 2023-06-07 Outpatient SFA SFA [id number] 230 Kamar 09:55:20 09:55:20 719 F Marj 2023-06-06 2023-06-06 Outpatient SFA SFA [id number] 230 Kamar 11:32:53 11:32:53 718 F Marj 2023-06-05 2023-06-05 Antoni Gil, [facility] [id number] 00:00:00 00:00:00 [facility] 2023-06-05 2023-06-05 Reflaxmi Gil [facility] [id number] 00:00:00 00:00:00 [facility] 2023-05-31 2023-05-31 Surgery Virtual, [facility] [id number] 11:00:00 11:30:00 [facility] 2023-05-31 2023-05-31 Surgery Virtual, [facility] [id number] 11:00:00 11:30:00 [facility] 2023-05-31 2023-05-31 [facility], [facility] [id number] 07:14:00 07:14:00 Encounter [facility] 2023-05-31 2023-05-31 [facility] [id number] 07:14:00 07:14:00 Encounter [facility] 2023-05-29 2023-05-29 Office [facility], [facility] [id number] 09:20:00 12:20:20 Visit [facility] 2023-05-29 2023-05-29 Office [facility], [facility] [id number] 09:20:00 12:20:20 Visit [facility] 2023-05-29 2023-05-29 Treatment [facility], [facility] [id number] 09:05:00 09:20:00 [facility] 2023-05-29 2023-05-29 [facility] [id number] 09:05:00 09:20:00 [facility] 2023-05-18 2023-05-18 [facility] [id number] 10:08:03 23:59:00 Encounter [facility] 2023-05-18 2023-05-18 [facility] [id number] 10:08:03 23:59:00 Encounter [facility] 2023-05-18 2023-05-18 [facility] [id number] 09:30:00 10:07:00 Encounter [facility] 2023-05-18 2023-05-18 [facility] [id number] 09:30:00 10:07:00 Encounter [facility] 2023-05-17 2023-05-17 [facility] [id number] 13:07:32 23:59:00 Encounter [facility] 2023-05-17 2023-05-17 [facility], [facility] [id number] 13:07:32 23:59:00 Encounter [facility] 2023-05-17 2023-05-17 [facility] [id number] 13:00:00 13:06:00 Encounter [facility] 2023-05-17 2023-05-17 [facility], [facility] [id number] 13:00:00 13:06:00 Encounter [facility] 2023-05-12 2023-05-12 [facility] [id number] 09:20:00 10:48:50 Visit [facility] 2023-05-12 2023-05-12 [facility] [id number] 09:20:00 10:48:50 Visit [facility] 2023-05-12 2023-05-12 [facility] Ciaran [facility] [id number] 10:05:00 10:20:00 [facility] 2023-05-12 2023-05-12 [facility] Ciaran [facility] [id number] 10:05:00 10:20:00 [facility] 2023-05-11 2023-05-11 Surgery Virtual, [facility] [id number] 09:00:00 09:30:00 [facility] 2023-05-11 2023-05-11 Surgery Virtual, [facility] [id number] 09:00:00 09:30:00 [facility] 2023-05-11 2023-05-11 [facility] Mon[facility], [facility] [id number] 09:00:00 09:00:00 Encounter Mayra [facility] 2023-05-11 2023-05-11 [facility] [id number] 09:00:00 09:00:00 Encounter [facility] 2023-05-11 2023-05-11 [facility] [id number] 09:00:00 09:00:00 Encounter [facility] Pattie [facility] 2023-05-11 2023-05-11 [facility] [id number] 09:00:00 09:00:00 Encounter [facility] 2023-05-04 2023-05-04 [facility] [id number] 00:00:00 00:00:00 ion [facility] 2023-05-04 2023-05-04 Aiden Burrows [facility] [id number] 00:00:00 00:00:00 ion [facility] 2023-04-28 2023-04-28 [facility] [id number] 13:00:00 15:18:42 Visit [facility] 2023-04-28 2023-04-28 Office Ciaran [facility] [id number] 13:00:00 15:18:42 Visit [facility] 2023-04-27 2023-04-27 Rimma Gil [facility] [id number] 00:00:00 00:00:00 Only [facility] 2023-04-27 2023-04-27 Rimma Gil [facility] [id number] 00:00:00 00:00:00 Only [facility] 2023-04-26 2023-04-26 Reflaxmi Mendiola [facility] [id number] 00:00:00 00:00:00 [facility] 2023-04-26 2023-04-26 Reflaxmi Mendiola [facility] [id number] 00:00:00 00:00:00 [facility] 2023-04-25 2023-04-25 Telephone Myron [facility] [id number] 00:00:00 00:00:00 [facility] 2023-04-25 2023-04-25 Telephone Myron [facility] [id number] 00:00:00 00:00:00 [facility] 2023-04-20 2023-04-20 Abstract Uzma Perry [facility] [id number] 00:00:00 00:00:00 [facility] 2023-04-20 2023-04-20 Orders Jeffery [facility] [id number] 00:00:00 00:00:00 Only [facility] 2023-04-20 2023-04-20 Abstract Uzma Perry [facility] [id number] 00:00:00 00:00:00 [facility] 2023-04-20 2023-04-20 Orders Jeffery [facility] [id number] 00:00:00 00:00:00 Only [facility] 2023-04-19 2023-04-19 Orders Monet [facility] [id number] 00:00:00 00:00:00 Only [facility] 2023-04-19 2023-04-19 Orders Monet [facility] [id number] 00:00:00 00:00:00 Only [facility] 2023-04-12 2023-04-12 Office Delma [facility] [id number] 11:00:00 12:00:00 Visit [facility] 2023-04-12 2023-04-12 Office Delma [facility] [id number] 11:00:00 12:00:00 Visit [facility] 2023-04-12 2023-04-12 Telephone Monet [facility] [id number] 00:00:00 00:00:00 [facility] 2023-04-12 2023-04-12 Telephone Monet [facility] [id number] 00:00:00 00:00:00 [facility] 2023-04-10 2023-04-10 Abstract Uzma Perry [facility] [id number] 00:00:00 00:00:00 [facility] 2023-04-10 2023-04-10 Abstract Uzma Perry [facility] [id number] 00:00:00 00:00:00 [facility] 2023-04-06 2023-04-06 Telephone Jeffery [facility] [id number] 00:00:00 00:00:00 [facility] 2023-04-06 2023-04-06 [facility] [id number] 00:00:00 00:00:00 [facility] 2023-04-04 2023-04-04 Office Jeffery [facility] [id number] 10:30:00 11:00:00 Visit [facility] 2023-04-04 2023-04-04 Office Jeffery [facility] [id number] 10:30:00 11:00:00 Visit [facility] 2023-03-29 2023-03-29 Telephone Myron [facility] [id number] 00:00:00 00:00:00 [facility] 2023-03-29 2023-03-29 Telephone Myron [facility] [id number] 00:00:00 00:00:00 [facility] 2023-03-28 2023-03-28 Telephone Monet [facility] [id number] 00:00:00 00:00:00 [facility] 2023-03-28 2023-03-28 Telephone Monet [facility] [id number] 00:00:00 00:00:00 [facility] 2023-03-24 2023-03-24 [facility] [id number] 00:00:00 00:00:00 [facility] 2023-03-24 2023-03-24 [facility] [id number] 00:00:00 00:00:00 [facility] 2023-03-21 2023-03-21 [facility] [id number] 00:00:00 00:00:00 [facility] 2023-03-21 2023-03-21 Telephone Monet [facility] [id number] 00:00:00 00:00:00 [facility] 2023-03-14 2023-03-14 [facility], [facility] [id number] 07:29:36 23:59:00 [facility]23-[facility]-14 2023-03-14 [facility], [facility] [id number] 07:29:36 23:59:00 Encounter [facility] 2023-03-13 2023-03-13 Outpatient SFA SFA [id number] Kamar 13:30:17 13:30:17 424 F Marj 2023-02-28 2023-02-28 Outpatient SFA SFA [id number] 230 Kamar 17:34:06 17:34:06 411 F Marj 2023-02-07 2023-02-07 Outpatient SFA SFA [id number] 230 Kamar 09:50:41 09:50:41 321 F Marj 2023-01-24 2023-01-24 Office EL Monet [facility] [id number] [facility] 13:30:00 14:00:00 Visit [facility] 2023-01-24 2023-01-24 Office Monet [facility] [id number] 13:30:00 14:00:00 Visit [facility] 2023-01-23 2023-01-23 Telephone Yordymalaika [facility] [id number] 00:00:00 00:00:00 [facility] 2023-01-23 2023-01-23 Telephone Jef [facility] [id number] 00:00:00 00:00:00 [facility] 2023-01-03 2023-01-03 Telephone Beka [facility] [id number] 00:00:00 00:00:00 [facility] 2023-01-03 2023-01-03 Telephone Beka [facility] [id number] 00:00:00 00:00:00 [facility] 2022-11-16 2022-11-16 Outpatient SFA PASCUAL [id number] Kamar 09:04:19 09:04:19 228 F Marj 2022-10-28 2022-10-28 Abstract Jef [facility] [id number] 00:00:00 00:00:00 [facility] 2022-10-28 2022-10-28 Abstract Jef [facility] [id number] 00:00:00 00:00:00 [facility] 2022-08-19 2022-08-19 Outpatient SFA PASCUAL [id number] Kamar 11:07:33 11:07:33 930 F Marj 2022-07-29 2022-07-29 Outpatient [id number] 00:00:00 00:00:00 Visit [id number] 2021-12-06 2021-12-06 [facility] [id number] [facility] 00:00:00 00:00:00 [facility] 2021-11-05 2021-11-05 Telephone [facility] [id number] [facility] 00:00:00 00:00:00 [facility] 2021-09-14 2021-09-14 Telephone [facility] [id number] [facility] 00:00:00 00:00:00 [facility] 2021-08-10 2021-08-10 Outpatient [facility] [id number] [facility] 00:00:00 00:00:00 2021-08-02 2021-08-02 Outpatient [facility]ISH[facility]VI [facility]CH[facility] [id number] [facility] 00:00:00 00:00:00 2021-06-15 2021-06-15 Outpatient [facility]CH[facility] [id number] [facility] 00:00:00 00:00:00 2021-04-16 2021-04-16 Outpatient VAISHNAVI [facility]CH[facility] [id number] [facility] 00:00:00 00:00:00 Results Test Description Test Time Test Comments Results Result [facility] e Comments IR EMBOLIZATION 2023-05-21 ARTERIAL 7 12:41:26 [facility] 1960 Sex: F Chemoembolization. History: Hepatic dome HCC. Modality: Sonography and fluoroscopy. Sedation: Moderate sedation was administered. 1 mg of Versed and 50 mcgof fentanyl IV was used for moderate sedation monitored under mydirection. Total intra-service time of sedation was 120 minutes. Thepatient's vital signs were monitored throughout the procedure andrecorded in the patient's medical record by the nurse. [employer]: Jose Molina M.D.Sql Developer Dba: Dr. Abdalla Approach: Right common femoral artery. Estimated blood loss: < 5 cc.Specimen: None. Technique: Informed written consent was obtained. Discussion of risks, benefits,and alternatives were made with the patient. The patient expressedunderstanding and agreed to proceed. A universal timeout was performedprior to starting the procedure. All elements maximal sterile barriertechnique was utilized for this procedure, including utilization ofsterile scrub solution for skin prep, a large sterile sheet to cover theareas of the patient that were not prepped, and hand hygiene, mask, headcovering, and sterile gown for performing radiologist and scrubtechnologist.Local anesthesia was administered overlying the right common femoralartery. The right common femoral artery was accessed using amicropuncture needle and ultrasound guidance. The site was upsized toaccept a 5 [place] Helenian vascular sheath. Right common femoral angiogram wasperformed for closure purposes.A reverse curve catheter was advanced into the aorta. The superiormesenteric artery was catheterized, and DSA was performed. Thisdemonstrated no hepatic supply. Delayed angiogram demonstrated patentportal vein. Next, the same base catheter was used to select the originof the celiac artery. This demonstrated tumoral opacification in thehepatic dome, which was supplied by branches of the right hepaticartery.At this point, a 2.8 [place] Helenian microcatheter and microwire were used tointerrogate several branches of the right hepatic artery. There were 2right hepatic artery branches which were suspicious for supplying thetumor. A more lateral coursing branch was catheterized and treated.Approximately 25 mg of the doxorubicin was administered into the morelateral branch. Postembolization angiography demonstrated pruning of theblood vessel with no further opacification of the tumor. Next, the moremedial of the 2 branches was catheterized. DSA from this locationconfirmed that this was the dominant supply to the hepatic dome tumor.Once appropriate positioning was confirmed, the remainder of thedoxorubicin (approximately 50 mg) was administered. After administrationof the doxorubicin, there continue to be tumoral opacification.Therefore bland embolization was performed with approximately one vialof 100-300 particles. Postembolization angiography demonstrated nofurther tumoral opacification.All catheters and wires were removed. Hemostasis of the right commonfemoral arteriotomy was achieved with the Angio-Seal device. Steriledressing applied. IMPRESSION:Impression: Successful bland and chemoembolization of the hepatic dome tumor.Electronically Signed By: Jose Molina06/15/2023 12:43 CDTWorkstation Name: [id number] HEPATIC FUNCTION PANEL 2023-06-14 10:24:45 Test Item Value Reference Range Interpretation Comme nts TOTAL PROTEIN (BEAKER) (test code = 6.9 gm/dL 6.0-8.3 Specimen slightly hemolyzed 770) ALBUMIN (BEAKER) (test code = 1145) 2.9 g/dL 3.5-5.0 L Specimen slightly hemolyzed BILIRUBIN TOTAL (BEAKER) (test code = 1.4 mg/dL 0.2-1.2 H Specimen slightly hemolyzed 377) BILIRUBIN DIRECT (BEAKER) (test code 0.7 mg/dL 0.1-0.5 H Specimen slightly hemolyzed = 706) ALKALINE PHOSPHATASE (BEAKER) (test 172 U/L 40-150 H code = 346) AST (SGOT) (BEAKER) (test code = 353) 103 U/L 5-34 H Specimen slightly hemolyzed ALT (SGPT) (BEAKER) (test code = 347) 58 U/L 6-55 H Specimen slightly hemolyzed Phone Triage Specialist ID - MMBASIC METABOLIC [id number] 10:24:44 Test Item Value Reference Range Interpretation Comments SODIUM (BEAKER) 143 meq/L 136-145 (test code = 381) POTASSIUM 4.4 meq/L 3.5-5.1 Specimen slight ly (BEAKER) (test hemolyzed code = 379) CHLORIDE (BEAKER) 107 meq/L 98-107 (test code = 382) CO2 (BEAKER) 29 meq/L 22-29 (test code = 355) BLOOD UREA 12 mg/dL 7-21 NITROGEN (BEAKER) (test code = 354) CREATININE 0.71 mg/dL 0.57-1.25 Specimen slight ly (BEAKER) (test hemolyzed code = 358) GLUCOSE RANDOM 99 mg/dL 70-105 (BEAKER) (test code = 652) CALCIUM (BEAKER) 8.7 mg/dL 8.4-10.2 (test code = 697) EGFR (BEAKER) 97 Interpretatio n of eGFR (test code = mL/min/1.73 values Stage De scription 1092) sq m Result G1 Rolanda l or high >=90 G2 Mildly decreased 60-89 G3a Mildl y to moderately 45-5 9 G3b Moderately to s everely 30-44 G4 Severl y decreased 15-29 G5 Kidney failure <15Reported eGF R is based on the CKD-EPI 2020 equation that d oes not use a race coefficientEsti mated GFR is not as accur ate as Creatinine Helen law in predicting glom erular filtration rate . Estimated GFR is not appl icable for dialysis patien ts Phone Triage Specialist ID - MMCBC W/PLT COUNT & AUTO [id number] 10:23:05 Test Item Value Reference Range Interpretation Comments WHITE BLOOD CELL COUNT (BEAKER) 4.4 K/ L 3.5-10.5 (test code = 775) RED BLOOD CELL COUNT (BEAKER) 3.61 M/ L 3.93-5.22 L (test code = 761) HEMOGLOBIN (BEAKER) (test code = 10.7 GM/DL 11.2-15.7 L 410) HEMATOCRIT (BEAKER) (test code = 33.7 % 34.1-44.9 L 411) MEAN CORPUSCULAR VOLUME (BEAKER) 93 fL 79-95 (test code = 753) MEAN CORPUSCULAR HEMOGLOBIN 29.6 pg 25.6-32.2 (BEAKER) (test code = 751) MEAN CORPUSCULAR HEMOGLOBIN CONC 31.8 GM/DL 32.2-35.5 L (BEAKER) (test code = 752) RED CELL DISTRIBUTION WIDTH 17.2 % 11.7-14.4 H (BEAKER) (test code = 412) PLATELET COUNT (BEAKER) (test code 71 K/CU MM 150-450 L = 756) MEAN PLATELET VOLUME (BEAKER) 10.8 fL 9.4-12.3 (test code = 754) NUCLEATED RED BLOOD CELLS (BEAKER) 0 /100 WBC 0-0 (test code = 413) NEUTROPHILS RELATIVE PERCENT 41 % (BEAKER) (test code = 429) LYMPHOCYTES RELATIVE PERCENT 46 % (BEAKER) (test code = 430) MONOCYTES RELATIVE PERCENT 13 % (BEAKER) (test code = 431) EOSINOPHILS RELATIVE PERCENT 0 % (BEAKER) (test code = 432) BASOPHILS RELATIVE PERCENT 1 % (BEAKER) (test code = 437) NEUTROPHILS ABSOLUTE COUNT 1.77 K/ L 1.56-6.13 (BEAKER) (test code = 670) LYMPHOCYTES ABSOLUTE COUNT 2.00 K/ L 1.18-3.74 (BEAKER) (test code = 414) MONOCYTES ABSOLUTE COUNT (BEAKER) 0.56 K/ L 0.24-0.36 H (test code = 415) EOSINOPHILS ABSOLUTE COUNT 0.00 K/ L 0.04-0.36 L (BEAKER) (test code = 416) BASOPHILS ABSOLUTE COUNT (BEAKER) 0.02 K/ L 0.01-0.08 (test code = 417) IMMATURE GRANULOCYTES-RELATIVE 0.20 % 0.00-1.00 PERCENT (BEAKER) (test code = 2801) [id number] 10:16:49 Test Item Value Reference Range Interpretation Comments PARTIAL THROMBOPLASTIN TIME 34.4 seconds 22.5-36.0 (BEAKER) (test code = 760) PROTHROMBIN [id number] 10:16:05 Test Item Value Reference Range Interpretation Comments PROTIME (BEAKER) (test code = 16.9 seconds 11.9-14.2 H 759) INR (BEAKER) (test code = 370) 1.46 <=5.90 RECOMMENDED COUMADIN/WARFARIN INR THERAPY RANGESSTANDARD DOSE: 2.0 - 3.0 Includes: PROPHYLAXIS for venous thrombosis, systemic embolization; TREATMENT for venous thrombosis and/or pulmonary embolus.HIGH RISK: Target INR is 2.5-3.5 for patients with mechanical heart valves.MR ABDOMEN WITH & WITHOUT IV [id number] 15:23:50 [facility] : 1960 Sex: FMRI of the abdomen with and without contrastClinical History: Gastrointestinal cancer, stagingTechnique: Multiplanar and multisequence MR images of the abdomen areobtained before and after intravenous contrast administration. Contrastis administered to evaluate neoplasm and vasculature. Comparison: MRI dated March 14, 2023, and April 02, 2021 (performed at [facility])Discussion:Liver is cirrhotic. A lesion at the right hepatic dome measures 4.0 x3.4 x 2.7 cm, not significant changed since the previous exam. Itdemonstrates mild T1 hyperintensity, heterogeneous enhancement and aprominent pseudocapsule. LI-RADS 5. No new liver mass is identified.Hepatic vasculature is patent. The periumbilical vein is recanalized.Main portal vein measures 16 mm in diameter.No biliary ductal dilatation. Gallbladder is unremarkable. Previouslyseen gallbladder wall edema has resolved.Spleen is borderline enlarged and measures 12.5 cm axially. Thepancreas, and adrenal glands appear normal.There are several cystsin the kidneys, a few arehemorrhagic/proteinaceous. No hydronephrosis, or renal mass.Trace perihepatic ascites. Varices are present. There is nolymphadenopathy. Visualized bowel is unremarkable. No suspicious bonylesion. IMPRESSION:Impression:Stable LI-RADS 5 observation in the right hepatic lobe.Cirrhosis and portal hypertension. Trace ascites.Electronically Signed By: Kiki Morocho05/20/2023 15:25 CDTWorkstation Name: [id number] BONE SCAN WHOLE BODY 2023-05-18 15:26:19 [facility] : 1960 Sex: FPROCEDURE: BONE SCAN, WHOLE BODYCPT CODE: [id number]: Hepatocellular carcinomaTECHNIQUE: 22 mCi ofTc-99m MDP was injected intravenously. Whole bodyand selected spot images were obtained approximately 3 hours later.Comparison: Chest CT on May 17, 2023FINDINGS:Mildly increased uptake within the shoulders, cervical and lower lumbarspine, knees, and feet.Focus of increased activity at the third right costochondral junction.No radiologic correlate on recent chest imaging. There is irregular mildincrease in activity in the calvarium.IMPRESSION:1. Focus of activity at the right costochondral junction isindeterminate but likely represents prior traumatic injury. 2. Degenerative changes of the spine and peripheral joints.3. Benign hyperostosis of the skull.Electronically Signed By: Edin Quiroga05/18/2023 15:28 CDTWorkstation Name: [id number] CHEST WITH IV [id number] 22:48:10 [facility] : 1960 Sex: FEXAM: CT Chest WITH intravenous contrastINDICATION: Gastrointestinal cancer, stagingCOMPARISON: MRI abdomen 03/14/2023TECHNIQUE:The thorax was scanned utilizing a multidetector helical scanner fromthe lungapex through the level of the adrenal glands afteradministration of IV contrast. Coronal and sagittal reformations wereobtained. Routine protocol was performed. Dose modulation, iterative reconstruction, and/or weight basedadjustment of the mA/kV was utilized to reduce the radiation dose to aslow as reasonably achievable. FINDINGS:LINES/ TUBES: None.LUNGS AND AIRWAYS: No focal airspace consolidation.No suspiciouspulmonary nodules. PLEURA: No pleural effusion or pneumothorax.HEART AND MEDIASTINUM: Normal thyroid. No thoracic lymphadenopathy.Nonspecific calcified lymph node in the right axillary region. Normalheart size. No pericardial effusion. No significant aortic or coronaryartery atherosclerosi s.UPPER ABDOMEN: Cirrhotic liver morphology with a 4.1 cm mass in segmentVII, unchanged from prior exams. The spleen is enlarged. There areesophageal and perigastric varices.BONES: No acute osseous injury. No suspicious lytic or blastic lesions.SOFT TISSUES: Unremarkable.IMPRESSION:1. No evidence of me tastatic disease within the chest.2. Grossly stable segment VII 4.1 cm mass, previously characterized asa LI-RADS 5 observation.3. Hepatic cirrhosis with sequela of portal hypertension.Electronically Signed By: Osmin Tucker05/17/2023 22:50 CDTWorkstation Name: [id number] FETOPROTEIN (AFP), TUMOR MARKER 2023-05-12 12:52:38 Test Item Value Reference Range Interpretation Comments ALPHA-FETOPROTEIN (BEAKER) (test 64.2 ng/mL <10.0 H code = 1094) Phone Triage Specialist ID - ADMINCOMPREHENSIVE METABOLIC [id number] 11:02:22 Test Item Value Reference Range Interpretation Comments TOTAL PROTEIN 8.8 gm/dL 6.0-8.3 H Specimen sligh tly (BEAKER) (test hemolyzed code = 770) ALBUMIN (BEAKER) 4.1 g/dL 3.5-5.0 Specimen sl ightly (test code = 1145) hemolyzed ALKALINE 185 U/L 40-150 H PHOSPHATASE (BEAKER) (test code = 346) BILIRUBIN TOTAL 2.2 mg/dL 0.2-1.2 H Specimen sli ghtly (BEAKER) (test hemolyzed code = 377) SODIUM (BEAKER) 138 meq/L 136-145 (test code = 381) POTASSIUM (BEAKER) 4.8 meq/L 3.5-5.1 Specimen slightly (test code = 379) hemolyzed CHLORIDE (BEAKER) 107 meq/L 98-107 (test code = 382) CO2 (BEAKER) (test 26 meq/L 22-29 code = 355) BLOOD UREA 15 mg/dL 7-21 NITROGEN (BEAKER) (test code = 354) CREATININE 0.93 mg/dL 0.57-1.25 Specimen slight ly (BEAKER) (test hemolyzed code = 358) GLUCOSE RANDOM 87 mg/dL 70-105 (BEAKER) (test code = 652) CALCIUM (BEAKER) 9.6 mg/dL 8.4-10.2 (test code = 697) AST (SGOT) 105 U/L 5-34 H Specimen slight ly (BEAKER) (test hemolyzed code = 353) ALT (SGPT) 69 U/L 6-55 H Specimen slight ly (BEAKER) (test hemolyzed code = 347) EGFR (BEAKER) 70 Interpretatio n of eGFR (test code = 1092) mL/min/1.[address] age Description sq m Result G1 Rolanda l or high >=90 G2 Mildly decreased 60-89 G3a Mildl y to moderately 45- 59 G3b Moderately to s everely 30-44 G4 Severl y decreased 15-29 G5 Kidney failure <15Reported eGF R is based on the CKD-EPI 2021 equation that d oes not use a race coefficientEsti mated GFR is not as accur ate as Creatinine Helen foy in predicting glom erular filtration rate . Estimated GFR is not appl icable for dialysis patien ts Specimen slightly ictericCBC W/PLT COUNT & AUTO [id number] 10:48:10 Test Item Value Reference Range Interpretation Comments WHITE BLOOD CELL COUNT (BEAKER) 9.4 K/ L 3.5-10.5 (test code = 775) RED BLOOD CELL COUNT (BEAKER) 4.06 M/ L 3.93-5.22 (test code = 761) HEMOGLOBIN (BEAKER) (test code = 12.4 GM/DL 11.2-15.7 410) HEMATOCRIT (BEAKER) (test code = 39.3 % 34.1-44.9 411) MEAN CORPUSCULAR VOLUME (BEAKER) 97 fL 79-95 H (test code = 753) MEAN CORPUSCULAR HEMOGLOBIN 30.5 pg 25.6-32.2 (BEAKER) (test code = 751) MEAN CORPUSCULAR HEMOGLOBIN CONC 31.6 GM/DL 32.2-35.5 L (BEAKER) (test code = 752) RED CELL DISTRIBUTION WIDTH 15.9 % 11.7-14.4 H (BEAKER) (test code = 412) PLATELET COUNT (BEAKER) (test 146 K/CU MM 150-450 L code = 756) MEAN PLATELET VOLUME (BEAKER) 11.8 fL 9.4-12.3 (test code = 754) NEUTROPHILS RELATIVE PERCENT 52 % (BEAKER) (test code = 429) LYMPHOCYTES RELATIVE PERCENT 33 % (BEAKER) (test code = 430) MONOCYTES RELATIVE PERCENT 14 % (BEAKER) (test code = 431) EOSINOPHILS RELATIVE PERCENT 0 % (BEAKER) (test code = 432) BASOPHILS RELATIVE PERCENT 1 % (BEAKER) (test code = 437) NEUTROPHILS ABSOLUTE COUNT 4.90 K/ L 1.56-6.13 (BEAKER) (test code = 670) LYMPHOCYTES ABSOLUTE COUNT 3.06 K/ L 1.18-3.74 (BEAKER) (test code = 414) MONOCYTES ABSOLUTE COUNT (BEAKER) 1.34 K/ L 0.24-0.36 H (test code = 415) EOSINOPHILS ABSOLUTE COUNT 0.01 K/ L 0.04-0.36 L (BEAKER) (test code = 416) BASOPHILS ABSOLUTE COUNT (BEAKER) 0.05 K/ L 0.01-0.08 (test code = 417) IMMATURE GRANULOCYTES-RELATIVE 0.30 % 0.00-1.00 PERCENT (BEAKER) (test code = 2801) ALPHA FETOPROTEIN (AFP), TUMOR [id number] 14:41:58 Test Item Value Reference Range Interpretation Comments ALPHA-FETOPROTEIN (BEAKER) (test 45.1 ng/mL <10.0 H code = 1094) Phone Triage Specialist ID - FSEBASIC METABOLIC [id number] 14:30:01 Test Item Value Reference Range Interpretation Comments SODIUM (BEAKER) 141 meq/L 136-145 (test code = 381) POTASSIUM 4.2 meq/L 3.5-5.1 (BEAKER) (test code = 379) CHLORIDE (BEAKER) 106 meq/L 98-107 (test code = 382) CO2 (BEAKER) 26 meq/L 22-29 (test code = 355) BLOOD UREA 13 mg/dL 7-21 NITROGEN (BEAKER) (test code = 354) CREATININE 0.81 mg/dL 0.57-1.25 (BEAKER) (test code = 358) GLUCOSE RANDOM 93 mg/dL 70-105 (BEAKER) (test code = 652) CALCIUM (BEAKER) 9.3 mg/dL 8.4-10.2 (test code = 697) EGFR (BEAKER) 83 Interpretatio n of eGFR (test code = mL/min/1.73 values Stage De scription 1092) sq m Result G1 Rolanda l or high >=90 G2 Mildly decreased 60-89 G3a Mildl y to moderately 45-5 9 G3b Moderately to s everely 30-44 G4 Severl y decreased 15-29 G5 Kidney failure <15Reported eGF R is based on the CKD-EPI 2020 equation that d oes not use a race coefficientEsti mated GFR is not as accur ate as Creatinine Helen foy in predicting glom erular filtration rate . Estimated GFR is not appl icable for dialysis patien ts Phone Triage Specialist CARRIE Torresimeruiz slightly ictericHEPATIC FUNCTION [id number] 14:30:01 Test Item Value Reference Range Interpretation Comments TOTAL PROTEIN (BEAKER) (test code = 7.9 gm/dL 6.0-8.3 770) ALBUMIN (BEAKER) (test code = 1145) 3.5 g/dL 3.5-5.0 BILIRUBIN TOTAL (BEAKER) (test code 2.2 mg/dL 0.2-1.2 H = 377) BILIRUBIN DIRECT (BEAKER) (test 1.2 mg/dL 0.1-0.5 H code = 706) ALKALINE PHOSPHATASE (BEAKER) (test 246 U/L 40-150 H code = 346) AST (SGOT) (BEAKER) (test code = 121 U/L 5-34 H 353) ALT (SGPT) (BEAKER) (test code = 79 U/L 6-55 H 347) Phone Triage Specialist CARRIE Torresimen slightly ictericPROTHROMBIN [id number] 14:01:11 Test Item Value Reference Range Interpretation Comments PROTIME (BEAKER) (test code = 16.0 seconds 11.9-14.2 H 759) INR (BEAKER) (test code = 370) 1.36 <=5.90 RECOMMENDED COUMADIN/WARFARIN INR THERAPY RANGESSTANDARD DOSE: 2.0 - 3.0 Includes: PROPHYLAXIS for venous thrombosis, systemic embolization; TREATMENT for venous thrombosis and/or pulmonary embolus.HIGH RISK: Target INR is 2.5-3.5 for patients with mechanical heart valves.CBC W/PLT COUNT & AUTO [id number] 13:59:27 Test Item Value Reference Range Interpretation Comments WHITE BLOOD CELL COUNT (BEAKER) 6.9 K/ L 3.5-10.5 (test code = 775) RED BLOOD CELL COUNT (BEAKER) 3.76 M/ L 3.93-5.22 L (test code = 761) HEMOGLOBIN (BEAKER) (test code = 11.7 GM/DL 11.2-15.7 410) HEMATOCRIT (BEAKER) (test code = 36.4 % 34.1-44.9 411) MEAN CORPUSCULAR VOLUME (BEAKER) 97 fL 79-95 H (test code = 753) MEAN CORPUSCULAR HEMOGLOBIN 31.1 pg 25.6-32.2 (BEAKER) (test code = 751) MEAN CORPUSCULAR HEMOGLOBIN CONC 32.1 GM/DL 32.2-35.5 L (BEAKER) (test code = 752) RED CELL DISTRIBUTION WIDTH 17.5 % 11.7-14.4 H (BEAKER) (test code = 412) PLATELET COUNT (BEAKER) (test code 91 K/CU MM 150-450 L = 756) MEAN PLATELET VOLUME (BEAKER) 12.5 fL 9.4-12.3 H (test code = 754) NUCLEATED RED BLOOD CELLS (BEAKER) 0 /100 WBC 0-0 (test code = 413) NEUTROPHILS RELATIVE PERCENT 48 % (BEAKER) (test code = 429) LYMPHOCYTES RELATIVE PERCENT 33 % (BEAKER) (test code = 430) MONOCYTES RELATIVE PERCENT 15 % (BEAKER) (test code = 431) EOSINOPHILS RELATIVE PERCENT 3 % (BEAKER) (test code = 432) BASOPHILS RELATIVE PERCENT 1 % (BEAKER) (test code = 437) NEUTROPHILS ABSOLUTE COUNT 3.30 K/ L 1.56-6.13 (BEAKER) (test code = 670) LYMPHOCYTES ABSOLUTE COUNT 2.31 K/ L 1.18-3.74 (BEAKER) (test code = 414) MONOCYTES ABSOLUTE COUNT (BEAKER) 1.06 K/ L 0.24-0.36 H (test code = 415) EOSINOPHILS ABSOLUTE COUNT 0.17 K/ L 0.04-0.36 (BEAKER) (test code = 416) BASOPHILS ABSOLUTE COUNT (BEAKER) 0.06 K/ L 0.01-0.08 (test code = 417) IMMATURE GRANULOCYTES-RELATIVE 0.10 % 0.00-1.00 PERCENT (BEAKER) (test code = 2801) MR, ABDOMEN, [id number] 07:23:00Referring: RAZ MANCUSO MOHAMMADCirrhosis, liver mass- assess for HCCCirrhosis, liver mass- assess for HCCUnlisted Reason for Exam - Click Yes and Enter Reason Below->No [facility] : 1960 Sex: FFINAL REPORT MRI of the abdomen with and without contrast Clinical History: Liver lesion, > 1cm, US nondiagnostic Technique: Multiplanar and multisequence MR images of the abdomen are obtained before and after intravenous contrast administration. Contrast is administered to evaluate neoplasm and vasculature. Comparison: MRI dated April 02, 2021, performed at an outside institution Discussion: Liver is cirrhotic. At the right hepatic dome in segment 7, there is a 3.9 x 3.3 x 2.6 cmlesion that is new, demonstrating heterogeneous enhancement in the arterial phase, with subsequent washout and pseudocapsule, LI-RADS 5. Hepatic artery anatomy is conventional. The main portal vein measures 16 mm in diameter. Gallbladder wall edema is mild is nonspecific, in the setting of cirrhosis. No stone is identified. There is no biliary ductal dilatation. Spleen is enlarged, and measures 13.5 cm axially. The pancreas, and adrenal glands are unremarkable. There is no hydronephrosis, or renal mass. Several small renal cysts do not demonstrate complex features, no routine imaging follow-up is needed. There is a small amount of ascites. Varices are present. Visualized bowel is unremarkable. No adenopathy. No suspicious bony lesion is identified. Impression: Cirrhosis and mild splenomegaly. Small amount of ascites. There is a 3.9 x 3.3 x 2.6 cm LI-RADS 5 observation in segment 7. Nonspecific gallbladder wall edema, probably related to portal hypertension. Signed: [facility] Verified Date/Time: 03/19/2023 07:23:13 ALPHA FETOPROTEIN (AFP), TUMOR [id number] 15:45:15 Test Item Value Reference Range Interpretation Comments ALPHA-FETOPROTEIN (BEAKER) (test 33.9 ng/mL <10.0 H code = 1094) Phone Triage Specialist ID - DBBASIC METABOLIC [id number] 15:24:28 Test Item Value Reference Range Interpretation Comments SODIUM (BEAKER) 140 meq/L 136-145 (test code = 381) POTASSIUM 3.8 meq/L 3.5-5.1 (BEAKER) (test code = 379) CHLORIDE (BEAKER) 107 meq/L 98-107 (test code = 382) CO2 (BEAKER) 23 meq/L 22-29 (test code = 355) BLOOD UREA 9 mg/dL 7-21 NITROGEN (BEAKER) (test code = 354) CREATININE 0.79 mg/dL 0.57-1.25 (BEAKER) (test code = 358) GLUCOSE RANDOM 82 mg/dL 70-105 (BEAKER) (test code = 652) CALCIUM (BEAKER) 9.5 mg/dL 8.4-10.2 (test code = 697) EGFR (BEAKER) 86 Interpretatio n of eGFR (test code = mL/min/1.73 values Stage De scription 1092) sq m Result G1 Rolanda l or high >=90 G2 Mildly decreased 60-89 G3a Mildl y to moderately 45-5 9 G3b Moderately to s everely 30-44 G4 Severl y decreased 15-29 G5 Kidney failure <15Reported eGF R is based on the CKD-EPI 2021 equation that d oes not use a race coefficientEsti mated GFR is not as accur ate as Creatinine Helen law in predicting glom erular filtration rate . Estimated GFR is not appl icable for dialysis patien ts Phone Triage Specialist ID - BSHEPATIC FUNCTION [id number] 15:24:28 Test Item Value Reference Range Interpretation Comments TOTAL PROTEIN (BEAKER) (test code = 8.6 gm/dL 6.0-8.3 H 770) ALBUMIN (BEAKER) (test code = 1145) 3.9 g/dL 3.5-5.0 BILIRUBIN TOTAL (BEAKER) (test code 2.0 mg/dL 0.2-1.2 H = 377) BILIRUBIN DIRECT (BEAKER) (test 1.0 mg/dL 0.1-0.5 H code = 706) ALKALINE PHOSPHATASE (BEAKER) (test 171 U/L 40-150 H code = 346) AST (SGOT) (BEAKER) (test code = 100 U/L 5-34 H 353) ALT (SGPT) (BEAKER) (test code = 67 U/L 6-55 H 347) Phone Triage Specialist ID - BSCBC W/PLT COUNT & AUTO [id number] 15:14:05 Test Item Value Reference Range Interpretation Comments WHITE BLOOD CELL COUNT (BEAKER) 8.9 K/ L 3.5-10.5 (test code = 775) RED BLOOD CELL COUNT (BEAKER) 3.98 M/ L 3.93-5.22 (test code = 761) HEMOGLOBIN (BEAKER) (test code = 12.7 GM/DL 11.2-15.7 410) HEMATOCRIT (BEAKER) (test code = 40.0 % 34.1-44.9 411) MEAN CORPUSCULAR VOLUME (BEAKER) 101 fL 79-95 H (test code = 753) MEAN CORPUSCULAR HEMOGLOBIN 31.9 pg 25.6-32.2 (BEAKER) (test code = 751) MEAN CORPUSCULAR HEMOGLOBIN CONC 31.8 GM/DL 32.2-35.5 L (BEAKER) (test code = 752) RED CELL DISTRIBUTION WIDTH 13.5 % 11.7-14.4 (BEAKER) (test code = 412) PLATELET COUNT (BEAKER) (test 115 K/CU MM 150-450 L code = 756) MEAN PLATELET VOLUME (BEAKER) 11.6 fL 9.4-12.3 (test code = 754) NUCLEATED RED BLOOD CELLS 0 /100 WBC 0-0 (BEAKER) (test code = 413) NEUTROPHILS RELATIVE PERCENT 46 % (BEAKER) (test code = 429) LYMPHOCYTES RELATIVE PERCENT 40 % (BEAKER) (test code = 430) MONOCYTES RELATIVE PERCENT 11 % (BEAKER) (test code = 431) EOSINOPHILS RELATIVE PERCENT 3 % (BEAKER) (test code = 432) BASOPHILS RELATIVE PERCENT 1 % (BEAKER) (test code = 437) NEUTROPHILS ABSOLUTE COUNT 4.09 K/ L 1.56-6.13 (BEAKER) (test code = 670) LYMPHOCYTES ABSOLUTE COUNT 3.58 K/ L 1.18-3.74 (BEAKER) (test code = 414) MONOCYTES ABSOLUTE COUNT (BEAKER) 0.93 K/ L 0.24-0.36 H (test code = 415) EOSINOPHILS ABSOLUTE COUNT 0.22 K/ L 0.04-0.36 (BEAKER) (test code = 416) BASOPHILS ABSOLUTE COUNT (BEAKER) 0.05 K/ L 0.01-0.08 (test code = 417) IMMATURE GRANULOCYTES-RELATIVE 0.20 % 0.00-1.00 PERCENT (BEAKER) (test code = 2801) PROTHROMBIN [id number] 15:13:04 Test Item Value Reference Range Interpretation Comments PROTIME (BEAKER) (test code = 16.0 seconds 11.9-14.2 H 759) INR (BEAKER) (test code = 370) 1.37 <=5.90 RECOMMENDED COUMADIN/WARFARIN INR THERAPY RANGESSTANDARD DOSE: 2.0 - 3.0 Includes: PROPHYLAXIS for venous thrombosis, systemic embolization; TREATMENT for venous thrombosis and/or pulmonary embolus.HIGH RISK: Target INR is 2.5-3.5 for patients with mechanical heart valves.COMPREHENSIVE METABOLIC PANEL 2022-07-30 08:43:11 Test Item Value Reference Range Interpretation Comments GLUCOSE (test code = 102 MG/DL 70-99 H 2216) BUN (test code = 9 MG/DL 8-23 2207) CREATININE (test 0.76 MG/DL 0.60-1.30 code = 2214) eGFR (2020 CKD-EPI) 90 ML/MIN/1.73 >60 (test code = 45076) CALC BUN/CREAT (test 12 RATIO 6-28 code = 2235) SODIUM (test code = 142 MEQ/L 699-017 5003) POTASSIUM (test code 4.3 MEQ/L 3.5-5.4 = 2227) CHLORIDE (test code 105 MEQ/L 95-107 = 2214) CARBON DIOXIDE (test 24 MEQ/L 19-31 code = 220) CALCIUM (test code = 10.1 MG/DL 8.5-10.5 2208) PROTEIN, TOTAL (test 8.0 G/DL 6.1-8.3 code = 222) ALBUMIN (test code = 4.1 G/DL 3.5-5.2 2200) CALC GLOBULIN (test 3.9 G/DL 1.9-3.7 H code = 2240) CALC A/G RATIO (test 1.1 RATIO 1.0-2.6 code = 2234) BILIRUBIN, TOTAL 2.5 MG/DL See_Comment H [Automated message] (test code = 2207) The syste m which generated this result transmit dipika reference range : <=1.2. The refe rence range was not u sed to interpret th is result as normal/abnormal . ALKALINE PHOSPHATASE 163 U/L 40-136 H (test code = 2204) AST (test code = 125 U/L 9-40 H 2217) ALT (test code = 94 U/L 5-40 H 2218) LIPID [id number] 08:43:11 Test Item Value Reference Range Interpretation [...] MOREINFORMATION , SEE CLIENT ANNOUNCE MENT AT [email or web address] RISK RATIO LDL/HDL 1.48 RATIO <3.22 UNLESS O THERWISE (test code = 2238) INDICATED , ALL TESTING PERFORMED [facility], [address] [place] [address] [facility] DIRECTOR: MARLENE BARBOSA M.D. CLIA NUMBER [id number] CAP ACCREDITATION N O. [id number] CBC W/AUTO DIFF WITH [id number] 08:17:54 Test Item Value Reference Range Interpretation [...] RBCS 0.00 K/UL 0.00-0.11 (test code = 33053) HEMOGLOBIN [id number] 08:16:27 Test Item Value Reference Range Interpretation Comments HEMOGLOBIN A1c (test code = 06699) 4.4 % 4.2-5.6 HEMOGLOBIN [id number] 00:00:00 Test Item Value Reference Range Interpretation Comments HEMOGLOBIN A1c (test code = 83453) 4.4 % HEMOGLOBIN [id number] 00:00:00 Test Item Value Reference Range Interpretation Comments HEMOGLOBIN A1c (test code = 78571) 4.4 % HEMOGLOBIN [id number] 00:00:00 Test Item Value Reference Range Interpretation Comments HEMOGLOBIN A1c (test code = 54869) 4.4 % CBC W/AUTO [id number] 00:00:00 Test Item Value Reference Range Interpretation [...] NUCLEATED RBCS (test code = 0.00 K/UL 25983) CBC W/AUTO [id number] 00:00:00 Test Item Value Reference Range Interpretation [...] NUCLEATED RBCS (test code = 0.00 K/UL 50500) CBC W/AUTO [id number] 00:00:00 Test Item Value Reference Range Interpretation [...] NUCLEATED RBCS (test code = 0.00 K/UL 15620) COMPREHENSIVE METABOLIC [id number] 00:00:00 Test Item Value Reference Range Interpretation Comments GLUCOSE (test code = 2217) 102 MG/DL BUN (test code = 2208) 9 MG/DL CREATININE (test code = 2214) 0.76 MG/DL eGFR (2020 CKD-EPI) (test code 90 ML/MIN/1.73 = 00156) CALC BUN/CREAT (test code = 12 RATIO 2235) SODIUM (test code = 2231) 142 MEQ/L POTASSIUM (test code = 2228) 4.3 MEQ/L CHLORIDE (test code = 2215) 105 MEQ/L CARBON DIOXIDE (test code = 24 MEQ/L 2205) CALCIUM (test code = 2209) 10.1 MG/DL PROTEIN, TOTAL (test code = 8.0 G/DL 2229) ALBUMIN (test code = 2201) 4.1 G/DL CALC GLOBULIN (test code = 3.9 G/DL 2240) CALC A/G RATIO (test code = 1.1 RATIO 2234) BILIRUBIN, TOTAL (test code = 2.5 MG/DL 2206) ALKALINE PHOSPHATASE (test 163 U/L code = 2204) AST (test code = 2218) 125 U/L ALT (test code = 2219) 94 U/L COMPREHENSIVE METABOLIC [id number] 00:00:00 Test Item Value Reference Range Interpretation Comments GLUCOSE (test code = 2217) 102 MG/DL BUN (test code = 2208) 9 MG/DL CREATININE (test code = 2214) 0.76 MG/DL eGFR (2020 CKD-EPI) (test code 90 ML/MIN/1.73 = 34280) CALC BUN/CREAT (test code = 12 RATIO [...] (test code = 2219) 94 U/L LIPID [id number] 00:00:00 Test Item Value Reference Range Interpretation Comments CHOLESTEROL (test code = 2210) 137 MG/DL TRIGLYCERIDES (test code = 2232) 98 MG/DL HDL CHOLESTEROL (test code = 2220) 48 MG/DL CALC LDL CHOL (test code = 2237) 71 MG/DL RISK RATIO LDL/HDL (test code = 1.48 RATIO 2238) LIPID [id number] 00:00:00 Test Item Value Reference Range Interpretation Comments CHOLESTEROL (test code = 2210) 137 MG/DL TRIGLYCERIDES (test code = 2232) 98 MG/DL HDL CHOLESTEROL (test code = 2220) 48 MG/DL CALC LDL CHOL (test code = 2237) 71 MG/DL RISK RATIO LDL/HDL (test code = 1.48 RATIO 2238) TSH, THIRD [id number] 03:55:19 Test Item Value Reference Range Interpretation Comments TSH, THIRD GENERATION (test code 2.080 UIU/ML 0.400-4.100 = 2821) FREE 03:55:19 Test Item Value Reference Range Interpretation Comments FREE T3 (test code = 4273) 2.5 PG/ML 2.2-4.2 FREE T4 (THYROXINE)2022-04-23 03:55:19 Test Item Value Reference Range Interpretation Comments FREE T4 1.43 NG/DL 0.80-1.90 UNLESS OTHERWI SE (THYROXINE) (test INDICATED, ALL TESTING code = 2823) PERFORMED [facility] [employer] [address] [place] [id number] [place] [address] DIRECTOR: MARLENE BARBOSA M.D. CLIA NUMBER [id number] [facility] ACCREDITATION N O. [id number] 00:00:00 Test Item Value Reference Range Interpretation Comments TSH, THIRD GENERATION (test code 2.080 UIU/ML = 2821) [id number] 00:00:00 Test Item Value Reference Range Interpretation Comments TSH, THIRD GENERATION (test code 2.080 UIU/ML = 2821) [id number] 00:00:00 Test Item Value Reference Range Interpretation [...] code = 1.43 NG/DL 2823) BASIC METABOLIC [id number] 04:23:34 Test Item Value Reference Range Interpretation Comments GLUCOSE (test code 86 MG/DL 70-99 = 2217) BUN (test code = 8 MG/DL 6-20 2207) CREATININE (test 0.75 MG/DL 0.60-1.30 code = 2214) eGFR (2020 CKD-EPI) 92 ML/MIN/1.73 >60 (test code = 00332) SODIUM (test code = 139 MEQ/L 676-901 9790) POTASSIUM (test 3.8 MEQ/L 3.5-5.4 code = 2228) CHLORIDE (test code 103 MEQ/L 95-107 = 2215) CARBON DIOXIDE 22 MEQ/L 19-31 (test code = 2206) CALCIUM (test code 9.9 MG/DL 8.5-10.5 UNLESS O THERWISE = 2209) INDICATED, ALL TESTING PERFORM [facility], [address] [place], [place] [id number] [place] [address] DIRECTOR: MARLENE BARBOSA M.D. CLIA NUMBER [id number] CAP ACCREDITATION N O. [id number] BASIC METABOLIC [id number] 00:00:00 Test Item Value Reference Range Interpretation Comments GLUCOSE (test code = 2217) 86 MG/DL BUN (test code = 2208) 8 MG/DL CREATININE (test code = 2214) 0.75 MG/DL eGFR (2020 CKD-EPI) (test code 92 ML/MIN/1.73 = 27041) SODIUM (test code = 2231) 139 MEQ/L POTASSIUM (test code = 2228) 3.8 MEQ/L CHLORIDE (test code = 2215) 103 MEQ/L CARBON DIOXIDE (test code = 22 MEQ/L 2206) CALCIUM (test code = 2209) 9.9 MG/DL BASIC METABOLIC [id number] 00:00:00 Test Item Value Reference Range Interpretation Comments GLUCOSE (test code = 2217) 86 MG/DL BUN (test code = 2208) 8 MG/DL CREATININE (test code = 2214) 0.75 MG/DL eGFR (2020 CKD-EPI) (test code 92 ML/MIN/1.73 = 26784) SODIUM (test code = 2231) 139 MEQ/L POTASSIUM (test code = 2228) 3.8 MEQ/L CHLORIDE (test code = 2215) 103 MEQ/L CARBON DIOXIDE (test code = 22 MEQ/L 2206) CALCIUM (test code = 2209) 9.9 MG/DL COMPREHENSIVE METABOLIC [id number] 00:00:00 Test Item Value Reference Range Interpretation Comments GLUCOSE (test code = 2217) 90 MG/DL BUN (test code = 2208) 18 MG/DL CREATININE (test code = 2214) 1.15 MG/DL eGFR AMER. (test code 60 ML/MIN/1.73 = 10683) eGFR NON- AMER. (test 52 ML/MIN/1.73 code = 19972) CALC BUN/CREAT (test code = 16 RATIO 2235) SODIUM (test code = 2231) 137 MEQ/L POTASSIUM (test code = 2228) 4.9 MEQ/L CHLORIDE (test code = 2215) 108 MEQ/L CARBON DIOXIDE (test code = 20 MEQ/L 6) CALCIUM (test code = 2209) 9.7 MG/DL PROTEIN, TOTAL (test code = 7.9 G/DL 2228) ALBUMIN (test code = 2201) 3.7 G/DL CALC GLOBULIN (test code = 4.2 G/DL 2240) CALC A/G RATIO (test code = 0.9 RATIO 2233) BILIRUBIN, TOTAL (test code = 1.2 MG/DL 2206) ALKALINE PHOSPHATASE (test 197 U/L code = 2204) AST (test code = 2218) 74 U/L ALT (test code = 2219) 64 U/L COMPREHENSIVE METABOLIC [id number] 00:00:00 Test Item Value Reference Range Interpretation Comments GLUCOSE (test code = 2217) 90 MG/DL BUN (test code = 2208) 18 MG/DL CREATININE (test code = 2214) 1.15 MG/DL eGFR AMER. (test code 60 ML/MIN/1.73 = 31974) eGFR NON- AMER. (test 52 ML/MIN/1.73 code = 21472) CALC BUN/CREAT (test code = 16 RATIO [...] RATIO 2233) BILIRUBIN, TOTAL (test code = 1.2 MG/DL 2206) ALKALINE PHOSPHATASE (test 197 U/L code = 220) AST (test code = 2218) 74 U/L ALT (test code = 2219) 64 U/L CBC W/AUTO [id number] 00:00:00 Test Item Value Reference Range Interpretation [...] NUCLEATED RBCS (test code = 0.00 K/UL 09461) CBC W/AUTO [id number] 00:00:00 Test Item Value Reference Range Interpretation [...] NUCLEATED RBCS (test code = 0.00 K/UL 27589) CBC W/AUTO [id number] 00:00:00 Test Item Value Reference Range Interpretation [...] NUCLEATED RBCS (test code = 0.00 K/UL 76260) COMPREHENSIVE METABOLIC [id number] 00:00:00 Test Item Value Reference Range Interpretation Comments GLUCOSE (test code = 2217) 89 MG/DL BUN (test code = 2208) 9 MG/DL CREATININE (test code = 2214) 0.81 MG/DL eGFR AMER. (test code 92 ML/MIN/1.73 = 76785) eGFR NON- AMER. (test 79 ML/MIN/1.73 code = 23901) CALC BUN/CREAT (test code = 11 RATIO 2235) SODIUM (test code = 2231) 140 MEQ/L POTASSIUM (test code = 2228) 4.3 MEQ/L CHLORIDE (test code = 2215) 106 MEQ/L CARBON DIOXIDE (test code = 24 MEQ/L 2206) CALCIUM (test code = 2209) 9.5 MG/DL PROTEIN, TOTAL (test code = 7.0 G/DL 2228) ALBUMIN (test code = 2201) 3.2 G/DL CALC GLOBULIN (test code = 3.8 G/DL 2240) CALC A/G RATIO (test code = 0.8 RATIO 2234) BILIRUBIN, TOTAL (test code = 1.8 MG/DL 2207) ALKALINE PHOSPHATASE (test 151 U/L code = 2204) AST (test code = 2218) 104 U/L ALT (test code = 2219) 73 U/L COMPREHENSIVE METABOLIC [id number] 00:00:00 Test Item Value Reference Range Interpretation Comments GLUCOSE (test code = 2217) 89 MG/DL BUN (test code = 2208) 9 MG/DL CREATININE (test code = 2214) 0.81 MG/DL eGFR AMER. (test code 92 ML/MIN/1.73 = 05573) eGFR NON- AMER. (test 79 ML/MIN/1.73 code = 52371) CALC BUN/CREAT (test code = 11 RATIO [...] code = 2219) 73 U/L PATHOLOGIST SMEAR [id number] 00:00:00 Test Item Value Reference Range Interpretation Comments DIAGNOSIS: (test code = 8200) (NOTE) MICROSCOPIC DESCRIPTION: (test (NOTE) code = 8210) PATHOLOGIST: (test code = 8250) (NOTE) CPT: (test code = 8400) 06674 WBC (test code = 1001) 8.4 K/UL [...] NUCLEATED RBCS (test code = 0.00 K/UL 36105) COMMENTS (test code = 1016) (NOTE) PATHOLOGIST SMEAR [id number] 00:00:00 Test Item Value Reference Range Interpretation Comments DIAGNOSIS: (test code = 8200) (NOTE) MICROSCOPIC DESCRIPTION: (test (NOTE) code = 8210) PATHOLOGIST: (test code = 8250) (NOTE) CPT: (test code = 8400) 79033 WBC (test code = 1001) 8.4 K/UL [...] NUCLEATED RBCS (test code = 0.00 K/UL 47959) COMMENTS (test code = 1016) (NOTE) CBC W/AUTO [id number] 00:00:00 Test Item Value Reference Range Interpretation [...] NUCLEATED RBCS (test code = 0.00 K/UL 48646) CBC W/AUTO [id number] 00:00:00 Test Item Value Reference Range Interpretation [...] NUCLEATED RBCS (test code = 0.00 K/UL 66027) CBC W/AUTO [id number] 00:00:00 Test Item Value Reference Range Interpretation [...] NUCLEATED RBCS (test code = 0.00 K/UL 09745) COMPREHENSIVE METABOLIC [id number] 00:00:00 Test Item Value Reference Range Interpretation Comments GLUCOSE (test code = 2217) 98 MG/DL BUN (test code = 2208) 9 MG/DL CREATININE (test code = 2214) 0.72 MG/DL eGFR AMER. (test code 106 ML/MIN/1.73 = 55208) eGFR NON- AMER. (test 92 ML/MIN/1.73 code = 95677) CALC BUN/CREAT (test code = 13 RATIO 2235) SODIUM (test code = 2231) 144 MEQ/L POTASSIUM (test code = 2228) 5.1 MEQ/L CHLORIDE (test code = 2215) 109 MEQ/L CARBON DIOXIDE (test code = 23 MEQ/L 220) CALCIUM (test code = 2209) 9.5 MG/DL PROTEIN, TOTAL (test code = 7.5 G/DL 2228) ALBUMIN (test code = 2201) 3.8 G/DL CALC GLOBULIN (test code = 3.7 G/DL 2240) CALC A/G RATIO (test code = 1.0 RATIO 4) BILIRUBIN, TOTAL (test code = 1.6 MG/DL 2206) ALKALINE PHOSPHATASE (test 154 U/L code = 2204) AST (test code = 2218) 113 U/L ALT (test code = 2219) 81 U/L COMPREHENSIVE METABOLIC [id number] 00:00:00 Test Item Value Reference Range Interpretation Comments GLUCOSE (test code = 2217) 98 MG/DL BUN (test code = 2208) 9 MG/DL CREATININE (test code = 2214) 0.72 MG/DL eGFR AMER. (test code 106 ML/MIN/1.73 = 92889) eGFR NON- AMER. (test 92 ML/MIN/1.73 code = 68871) CALC BUN/CREAT (test code = 13 RATIO 2235) SODIUM (test code = 2231) 144 MEQ/L POTASSIUM (test code = 2228) 5.1 MEQ/L CHLORIDE (test code = 2215) 109 MEQ/L CARBON DIOXIDE (test code = 23 MEQ/L 220) CALCIUM (test code = 2209) 9.5 MG/DL PROTEIN, TOTAL (test code = 7.5 G/DL 9) ALBUMIN (test code = 2201) 3.8 G/DL CALC GLOBULIN (test code = 3.7 G/DL 2240) CALC A/G RATIO (test code = 1.0 RATIO 2234) BILIRUBIN, TOTAL (test code = 1.6 MG/DL 2207) ALKALINE PHOSPHATASE (test 154 U/L code = 2204) AST (test code = 2218) 113 U/L ALT (test code = 2219) 81 U/L LIPID [id number] 00:00:00 Test Item Value Reference Range Interpretation Comments CHOLESTEROL (test code = 2210) 115 MG/DL TRIGLYCERIDES (test code = 2232) 96 MG/DL HDL CHOLESTEROL (test code = 2220) 41 MG/DL CALC LDL CHOL (test code = 2237) 56 MG/DL RISK RATIO LDL/HDL (test code = 1.37 RATIO 2238) LIPID [id number] 00:00:00 Test Item Value Reference Range Interpretation Comments CHOLESTEROL (test code = 2210) 115 MG/DL TRIGLYCERIDES (test code = 2232) 96 MG/DL HDL CHOLESTEROL (test code = 2220) 41 MG/DL CALC LDL CHOL (test code = 2237) 56 MG/DL RISK RATIO LDL/HDL (test code = 1.37 RATIO 2238) MISCELLANEOUS LAB [id number] 10:27:00 Test Item Value Reference Range Interpretation Comments SCAN RESULT (test code = 2089713) See scanned [id number] 14:57:00 Test Item Value Reference Range Interpretation Comments FERRITIN (BEAKER) (test code = 425.05 ng/mL 5.00-275.00 H 361) Phone Triage Specialist ID - AYLA CALPHA FETOPROTEIN (AFP), TUMOR [id number] 14:16:00 Test Item Value Reference Range Interpretation Comments ALPHA-FETOPROTEIN (BEAKER) (test 38.9 ng/mL <10.0 H code = 1094) Phone Triage Specialist ID - MARJ MHEPATITIS B CORE ANTIBODY, [id number] 14:16:00 Test Item Value Reference Range Interpretation Comments HEPATITIS B CORE TOTAL ANTIBODY Nonreactive Nonreactive (BEAKER) (test code = 497) Phone Triage Specialist ID - MARJ ADÁN, TIBC, % SAT. (WITHOUT FERRITIN)2021-04-16 13:52:00 Test Item Value Reference Range Interpretation Comments IRON (BEAKER) (test code = 547) 136.0 ug/dL 40.0-160.0 TOTAL IRON BINDING CAPACITY 325 ug/dL 250-450 (BEAKER) (test code = 769) IRON % SATURATION (2) (BEAKER) 42 % 20-55 (test code = 2590) Phone Triage Specialist ID - MARJ MCOMPREHENSIVE METABOLIC [id number] 13:50:00 Test Item Value Reference Range Interpretation [...] 347) EGFR (BEAKER) (test 94 mL/min/1.73 ESTIMA DIPIKA GFR IS code = 1092) sq m NOT ACCURATE CREATININE CLEARANCE IN PREDICTING GLOMERULAR FILTRATION RATE . ESTIMATED GFR I S NOT APPLICABLE FOR DIALYSIS PATIEN TS. Phone Triage Specialist ID Julianna MCMAHAN GABBI, [id number] 13:50:00 Test Item Value Reference Range Interpretation Comments BILIRUBIN DIRECT (BEAKER) (test 1.1 mg/dL 0.1-0.5 H code = 706) Phone Triage Specialist ID - MARJ MPROTHROMBIN [id number] 13:30:00 Test Item Value Reference Range Interpretation Comments PROTIME (BEAKER) 14.9 seconds 11.9-14.2 H (test code = 759) INR (BEAKER) (test 1.20 See_Comment [Automat ed message] code = 370) The system [employer] generated this result transmitted ref erence range: <=5.90. The reference range was not used to int erpret this result as normal/abnormal . RECOMMENDED COUMADIN/WARFARIN INR THERAPY RANGESSTANDARD DOSE: 2.0 - 3.0 Includes: PROPHYLAXIS for venous thrombosis, systemic embolization; TREATMENT for venous thrombosis and/or pulmonary embolus.HIGH RISK: Target INR is 2.5-3.5 for patients with mechanical heart valves.CBC W/PLT COUNT & AUTO [id number] 13:25:00 Test Item Value Reference Range Interpretation [...] (BEAKER) (test code = 2801) CBC W/AUTO [id number] 00:00:00 Test Item Value Reference Range Interpretation [...] code = 1015) 135 K/UL CBC W/AUTO [id number] 00:00:00 Test Item Value Reference Range Interpretation [...] code = 1015) 135 K/UL CBC W/AUTO [id number] 00:00:00 Test Item Value Reference Range Interpretation [...] code = 1015) 135 K/UL COMPREHENSIVE METABOLIC [id number] 00:00:00 Test Item Value Reference Range Interpretation Comments GLUCOSE (test code = 2217) 95 MG/DL BUN (test code = 2208) 8 MG/DL CREATININE (test code = 2214) 0.78 MG/DL eGFR AMER. (test code 97 ML/MIN/1.73 = 26549) eGFR NON- AMER. (test 84 ML/MIN/1.73 code = 61565) CALC BUN/CREAT (test code = 10 RATIO 2235) SODIUM (test code = 2231) 137 MEQ/L POTASSIUM (test code = 2228) 5.2 MEQ/L CHLORIDE (test code = 2215) 104 MEQ/L CARBON DIOXIDE (test code = 22 MEQ/L 2205) CALCIUM (test code = 220) 10.1 MG/DL PROTEIN, TOTAL (test code = [...] code = 2219) 88 U/L COMPREHENSIVE METABOLIC [id number] 00:00:00 Test Item Value Reference Range Interpretation Comments GLUCOSE (test code = 221) 95 MG/DL BUN (test code = 2208) 8 MG/DL CREATININE (test code = 2214) 0.78 MG/DL eGFR AMER. (test code 97 ML/MIN/1.73 = 05076) eGFR NON- AMER. (test 84 ML/MIN/1.73 code = 71215) CALC BUN/CREAT (test code = 10 RATIO 2235) SODIUM (test code = 2231) 137 MEQ/L POTASSIUM (test code = 2228) 5.2 MEQ/L CHLORIDE (test code = 2215) 104 MEQ/L CARBON DIOXIDE (test code = 22 MEQ/L 2205) CALCIUM (test code = 220) 10.1 MG/DL PROTEIN, TOTAL (test code = [...] (test code = 2219) 88 U/L LIPID [id number] 00:00:00 Test Item Value Reference Range Interpretation Comments CHOLESTEROL (test code = 2210) 119 MG/DL TRIGLYCERIDES (test code = 2232) 140 MG/DL HDL CHOLESTEROL (test code = 2220) 32 MG/DL CALC LDL CHOL (test code = 2237) 65 MG/DL RISK RATIO LDL/HDL (test code = 2.03 RATIO 2238) LIPID [id number] 00:00:00 Test Item Value Reference Range Interpretation Comments CHOLESTEROL (test code = 2210) 119 MG/DL TRIGLYCERIDES (test code = 2232) 140 MG/DL HDL CHOLESTEROL (test code = 2220) 32 MG/DL CALC LDL CHOL (test code = 2237) 65 MG/DL RISK RATIO LDL/HDL (test code = 2.03 RATIO 2238) CBC W/AUTO [id number] 00:00:00 Test Item Value Reference Range Interpretation [...] code = 1015) 81 K/UL CBC W/AUTO [id number] 00:00:00 Test Item Value Reference Range Interpretation [...] code = 1015) 81 K/UL CBC W/AUTO [id number] 00:00:00 Test Item Value Reference Range Interpretation [...] (test code = 1015) 81 K/UL LIPID [id number] 00:00:00 Test Item Value Reference Range Interpretation Comments CHOLESTEROL (test code = 2210) 131 MG/DL TRIGLYCERIDES (test code = 2232) 108 MG/DL HDL CHOLESTEROL (test code = 2220) 28 MG/DL CALC LDL CHOL (test code = 2237) 81 MG/DL RISK RATIO LDL/HDL (test code = 2.91 RATIO 2238) LIPID [id number] 00:00:00 Test Item Value Reference Range Interpretation Comments CHOLESTEROL (test code = 2210) 131 MG/DL TRIGLYCERIDES (test code = 2232) 108 MG/DL HDL CHOLESTEROL (test code = 2220) 28 MG/DL CALC LDL CHOL (test code = 2237) 81 MG/DL RISK RATIO LDL/HDL (test code = 2.91 RATIO 2238) COMPREHENSIVE METABOLIC [id number] 00:00:00 Test Item Value Reference Range Interpretation Comments GLUCOSE (test code = 2217) 85 MG/DL BUN (test code = 2208) 13 MG/DL CREATININE (test code = 2214) 0.78 MG/DL eGFR AMER. (test code 98 ML/MIN/1.73 = 12253) eGFR NON- AMER. (test 84 ML/MIN/1.73 code = 22355) CALC BUN/CREAT (test code = 17 RATIO [...] code = 2219) 54 U/L COMPREHENSIVE METABOLIC [id number] 00:00:00 Test Item Value Reference Range Interpretation Comments GLUCOSE (test code = 2217) 85 MG/DL BUN (test code = 2208) 13 MG/DL CREATININE (test code = 2214) 0.78 MG/DL eGFR AMER. (test code 98 ML/MIN/1.73 = 16913) eGFR NON- AMER. (test 84 ML/MIN/1.73 code = 72122) CALC BUN/CREAT (test code = 17 RATIO [...] = 2219) 54 U/L VAGINAL PATHOGENS DNA [id number] 00:00:00 Test Item Value Reference Range Interpretation Comments PILY SPECIES (test code = ) NEGATIVE G. VAGINALIS (test code = ) POSITIVE T. VAGINALIS (test code = ) NEGATIVE VAGINAL PATHOGENS DNA [id number] 00:00:00 Test Item Value Reference Range Interpretation Comments PILY SPECIES (test code = ) NEGATIVE G. VAGINALIS (test code = ) POSITIVE T. VAGINALIS (test code = ) NEGATIVE PAP TEST, THINPREP, [id number] 00:00:00 Test Item Value Reference Range Interpretation Comments SOURCE: (test code = Vaginal 8001) SLIDES: (test code = 1 8011) LMP: (test code = 8021) 2011 SPECIMEN ADEQUACY: (NOTE) (test code = 63772) INTERPRETATION: (test NILM/NO EPITH. code = 24583) ABNORMALITY;SEE BELOW STOCK PREPARER: (test JOHN G. code = 8101) ANAND MARIE(ASCP) LOCATION: (test code = (NOTE) 17111) CPT: (test code = 8140) (NOTE) PAP TEST, THINPREP, [id number] 00:00:00 Test Item Value Reference Range Interpretation Comments SOURCE: (test code = Vaginal 8000) SLIDES: (test code = 1 8011) LMP: (test code = 8021) 2011 SPECIMEN ADEQUACY: (NOTE) (test code = 89128) INTERPRETATION: (test NILM/NO EPITH. code = 63196) ABNORMALITY;SEE BELOW STOCK PREPARER: (test JOHN G. code = 8101) ANAND MARIE(ASCP) LOCATION: (test code = (NOTE) 72826) CPT: (test code = 8140) (NOTE) HPV HIGH RISK WITH GENOTYPE, [id number] 00:00:00 Test Item Value Reference Range Interpretation Comments HPV HIGH RISK INTERP (test code = NEGATIVE 59086) HPV 16 (test code = 31024) NEGATIVE HPV 18 (test code = 04604) NEGATIVE HPV, HR, OTHER GENOTYPES (test code NEGATIVE = 46301) HPV HIGH RISK WITH GENOTYPE, [id number] 00:00:00 Test Item Value Reference Range Interpretation Comments HPV HIGH RISK INTERP (test code = NEGATIVE 58768) HPV 16 (test code = 25956) NEGATIVE HPV 18 (test code = 16922) NEGATIVE HPV, HR, OTHER GENOTYPES (test code NEGATIVE = 25719) HEMOGLOBIN [id number] 00:00:00 Test Item Value Reference Range Interpretation Comments HEMOGLOBIN A1c (test code = 98480) 4.7 % HEMOGLOBIN [id number] 00:00:00 Test Item Value Reference Range Interpretation Comments HEMOGLOBIN A1c (test code = 65008) 4.7 % HEMOGLOBIN [id number] 00:00:00 Test Item Value Reference Range Interpretation Comments HEMOGLOBIN A1c (test code = 80756) 4.7 % CBC W/AUTO [id number] 00:00:00 Test Item Value Reference Range Interpretation [...] code = 1015) 88 K/UL CBC W/AUTO [id number] 00:00:00 Test Item Value Reference Range Interpretation [...] code = 1015) 88 K/UL CBC W/AUTO [id number] 00:00:00 Test Item Value Reference Range Interpretation [...] code = 1015) 88 K/UL COMPREHENSIVE METABOLIC [id number] 00:00:00 Test Item Value Reference Range Interpretation Comments GLUCOSE (test code = 2217) 84 MG/DL BUN (test code = 2208) 11 MG/DL CREATININE (test code = 2214) 0.79 MG/DL eGFR AMER. (test code 97 ML/MIN/1.73 = 68819) eGFR NON- AMER. (test 84 ML/MIN/1.73 code = 78248) CALC BUN/CREAT (test code = 14 RATIO [...] BILIRUBIN, TOTAL (test code = 0.9 MG/DL 220) ALKALINE PHOSPHATASE (test 112 U/L code = 2204) AST (test code = 2218) 63 U/L ALT (test code = 2219) 45 U/L COMPREHENSIVE METABOLIC [id number] 00:00:00 Test Item Value Reference Range Interpretation Comments GLUCOSE (test code = 2217) 84 MG/DL BUN (test code = 2208) 11 MG/DL CREATININE (test code = 2214) 0.79 MG/DL eGFR AMER. (test code 97 ML/MIN/1.73 = 46038) eGFR NON- AMER. (test 84 ML/MIN/1.73 code = 88371) CALC BUN/CREAT (test code = 14 RATIO [...] CALC GLOBULIN (test code = 3.6 G/DL 224) CALC A/G RATIO (test code = 0.9 RATIO 2233) BILIRUBIN, TOTAL (test code = 0.9 MG/DL 2206) ALKALINE PHOSPHATASE (test 112 U/L code = 2204) AST (test code = 2218) 63 U/L ALT (test code = 2219) 45 U/L LIPID [id number] 00:00:00 Test Item Value Reference Range Interpretation Comments CHOLESTEROL (test code = 2210) 132 MG/DL TRIGLYCERIDES (test code = 2232) 125 MG/DL HDL CHOLESTEROL (test code = 2220) 24 MG/DL CALC LDL CHOL (test code = 2237) 83 MG/DL RISK RATIO LDL/HDL (test code = 3.46 RATIO 2238) LIPID [id number] 00:00:00 Test Item Value Reference Range Interpretation [...] Comments HCV RNA, PCR QUANT (test code 9900684 IU/ML = 4571) HCV VIRAL LOG (test code = 6.932 LOGIU/ML 95447) HCV RNA, PCR QUANT [REFLEX]2017-12-18 00:00:00 Test Item Value Reference Range Interpretation Comments HCV RNA, PCR QUANT (test code 1937759 IU/ML = 4571) HCV VIRAL LOG (test code = 6.932 LOGIU/ML 96049) HCV RNA, PCR QUANT [REFLEX]2017-12-18 00:00:00 Test Item Value Reference Range Interpretation Comments HCV RNA, PCR QUANT (test code 4052429 IU/ML = 4571) HCV VIRAL LOG (test code = 6.932 LOGIU/ML 04237) CBC W/AUTO [id number] 00:00:00 Test Item Value Reference Range Interpretation [...] (test code = 1016) (NOTE) CBC W/AUTO [id number] 00:00:00 Test Item Value Reference Range Interpretation [...] (test code = 1016) (NOTE) CBC W/AUTO [id number] 00:00:00 Test Item Value Reference Range Interpretation [...] (test code = 1016) (NOTE) COMPREHENSIVE METABOLIC [id number] 00:00:00 Test Item Value Reference Range Interpretation Comments GLUCOSE (test code = 2217) 109 MG/DL BUN (test code = 2208) 14 MG/DL CREATININE (test code = 2214) 0.73 MG/DL eGFR AMER. (test code 107 ML/MIN/1.73 = 68308) eGFR NON- AMER. (test 93 ML/MIN/1.73 code = 10219) CALC BUN/CREAT (test code = 19 RATIO 2235) SODIUM (test code = 2231) 142 MEQ/L POTASSIUM (test code = 2228) 5.0 MEQ/L CHLORIDE (test code = 2215) 99 MEQ/L CARBON DIOXIDE (test code = 27 MEQ/L 2206) CALCIUM (test code = 2209) 9.6 MG/DL PROTEIN, TOTAL (test code = 8.0 G/DL 2228) ALBUMIN (test code = 2201) 3.8 G/DL CALC GLOBULIN (test code = 4.2 G/DL 2239) CALC A/G RATIO (test code = 0.9 RATIO 2234) BILIRUBIN, TOTAL (test code = 0.7 MG/DL 2207) ALKALINE PHOSPHATASE (test 163 U/L code = 2204) AST (test code = 2218) 85 U/L ALT (test code = 2219) 57 U/L COMPREHENSIVE METABOLIC [id number] 00:00:00 Test Item Value Reference Range Interpretation Comments GLUCOSE (test code = 2217) 109 MG/DL BUN (test code = 2208) 14 MG/DL CREATININE (test code = 2214) 0.73 MG/DL eGFR AMER. (test code 107 ML/MIN/1.73 = 79999) eGFR NON- AMER. (test 93 ML/MIN/1.73 code = 40699) CALC BUN/CREAT (test code = 19 RATIO [...] BILIRUBIN, TOTAL (test code = 0.7 MG/DL 7) ALKALINE PHOSPHATASE (test 163 U/L code = 2204) AST (test code = 2218) 85 U/L ALT (test code = 2219) 57 U/L LIPID [id number] 00:00:00 Test Item Value Reference Range Interpretation Comments CHOLESTEROL (test code = 2210) 153 MG/DL TRIGLYCERIDES (test code = 2232) 239 MG/DL HDL CHOLESTEROL (test code = 2220) 27 MG/DL CALC LDL CHOL (test code = 2237) 78 MG/DL RISK RATIO LDL/HDL (test code = 2.90 RATIO 2238) LIPID [id number] 00:00:00 Test Item Value Reference Range Interpretation Comments CHOLESTEROL (test code = 2210) 153 MG/DL TRIGLYCERIDES (test code = 2232) 239 MG/DL HDL CHOLESTEROL (test code = 2220) 27 MG/DL CALC LDL CHOL (test code = 2237) 78 MG/DL RISK RATIO LDL/HDL (test code = 2.90 RATIO 2238) HEPATITIS C REFLEX [id number] 00:00:00 Test Item Value Reference Range Interpretation Comments HEPATITIS C ANTIBODY (test code = REACTIVE 4675) HEPATITIS C REFLEX [id number] 00:00:00 Test Item Value Reference Range Interpretation Comments HEPATITIS C ANTIBODY (test code = REACTIVE 4675) COMPREHENSIVE METABOLIC [id number] 00:00:00 Test Item Value Reference Range Interpretation Comments GLUCOSE (test code = 2217) 102 MG/DL BUN (test code = 2208) 17 MG/DL CREATININE (test code = 2214) 0.64 MG/DL eGFR AMER. (test code 116 ML/MIN/1.73 = 68138) eGFR NON- AMER. (test 100 ML/MIN/1.73 code = 09535) CALC BUN/CREAT (test code = 27 RATIO 2235) SODIUM (test code = 2231) 145 MEQ/L POTASSIUM (test code = 2228) 4.8 MEQ/L CHLORIDE (test code = 2215) 108 MEQ/L CARBON DIOXIDE (test code = 26 MEQ/L 6) CALCIUM (test code = 2209) 9.1 MG/DL [...] code = 2219) 54 U/L COMPREHENSIVE METABOLIC [id number] 00:00:00 Test Item Value Reference Range Interpretation Comments GLUCOSE (test code = 2217) 102 MG/DL BUN (test code = 2208) 17 MG/DL CREATININE (test code = 2214) 0.64 MG/DL eGFR AMER. (test code 116 ML/MIN/1.73 = 30995) eGFR NON- AMER. (test 100 ML/MIN/1.73 code = 92613) CALC BUN/CREAT (test code = 27 RATIO 223) SODIUM (test code = 2231) 145 MEQ/L POTASSIUM (test code = 2228) 4.8 MEQ/L CHLORIDE (test code = 2215) 108 MEQ/L CARBON DIOXIDE (test code = 26 MEQ/L 2205) CALCIUM (test code = 2209) 9.1 MG/DL PROTEIN, TOTAL (test code = 6.6 G/DL 2228) ALBUMIN (test code = 2201) 3.5 G/DL CALC GLOBULIN (test code = 3.1 G/DL 2239) CALC A/G RATIO (test code = 1.1 RATIO 2233) BILIRUBIN, TOTAL (test code = 0.6 MG/DL 2206) ALKALINE PHOSPHATASE (test 177 U/L code = 2204) AST (test code = 2218) 78 U/L ALT (test code = 2219) 54 U/L LIPID [id number] 00:00:00 Test Item Value Reference Range Interpretation Comments CHOLESTEROL (test code = 2210) 126 MG/DL TRIGLYCERIDES (test code = 2232) 127 MG/DL HDL CHOLESTEROL (test code = 2220) 29 MG/DL CALC LDL CHOL (test code = 2237) 72 MG/DL RISK RATIO LDL/HDL (test code = 2.47 RATIO 2238) LIPID [id number] 00:00:00 Test Item Value Reference Range Interpretation Comments CHOLESTEROL (test code = 2210) 126 MG/DL TRIGLYCERIDES (test code = 2232) 127 MG/DL HDL CHOLESTEROL (test code = 2220) 29 MG/DL CALC LDL CHOL (test code = 2237) 72 MG/DL RISK RATIO LDL/HDL (test code = 2.47 RATIO 2238) CBC W/AUTO [id number] 00:00:00 Test Item Value Reference Range Interpretation [...] (test code = 1016) (NOTE) CBC W/AUTO [id number] 00:00:00 Test Item Value Reference Range Interpretation [...] (test code = 1016) (NOTE) CBC W/AUTO [id number] 00:00:00 Test Item Value Reference Range Interpretation [...] (test code = 1016) (NOTE) PATHOLOGIST SMEAR [id number] 00:00:00 Test Item Value Reference Range Interpretation [...] (test code = 1016) (NOTE) PATHOLOGIST SMEAR [id number] 00:00:00 Test Item Value Reference Range Interpretation [...] COMMENTS (test code = 1016) (NOTE) LEUKEMIA/LYMPHOMA [id number] 00:00:00 Test Item Value Reference Range Interpretation Comments FLOW CYTOMETRY (test code = 39896) (NOTE) PATHOLOGIST: (test code = 8250) (NOTE) DISCLAIMER (test code = 35202) (NOTE) CPT: (test code = 427068) (NOTE) NUMBER OF SITES (test code = 04274) (NOTE) LEUKEMIA/LYMPHOMA [id number] 00:00:00 Test Item Value Reference Range Interpretation Comments FLOW CYTOMETRY (test code = 74494) (NOTE) PATHOLOGIST: (test code = 8250) (NOTE) DISCLAIMER (test code = 42395) (NOTE) CPT: (test code = 552357) (NOTE) NUMBER OF SITES (test code = 23223) (NOTE) SEDIMENTATION [id number] 00:00:00 Test Item Value Reference Range Interpretation Comments SEDIMENTATION RATE (test code = 7 MM/HOUR 1017) SEDIMENTATION [id number] 00:00:00 Test Item Value Reference Range Interpretation Comments SEDIMENTATION RATE (test code = 7 MM/HOUR 1017) CBC W/AUTO [id number] 00:00:00 Test Item Value Reference Range Interpretation [...] code = 1015) 103 K/UL CBC W/AUTO [id number] 00:00:00 Test Item Value Reference Range Interpretation [...] code = 1015) 103 K/UL CBC W/AUTO [id number] 00:00:00 Test Item Value Reference Range Interpretation [...] code = 1015) 103 K/UL CBC W/AUTO [id number] 00:00:00 Test Item Value Reference Range Interpretation Comments WBC (test code = TEST NOT PERFORMED K/UL 1001) CBC W/AUTO [id number] 00:00:00 Test Item Value Reference Range Interpretation Comments WBC (test code = TEST NOT PERFORMED K/UL 1001) CBC W/AUTO [id number] 00:00:00 Test Item Value Reference Range Interpretation Comments WBC (test code = TEST NOT PERFORMED K/UL 1001) PAP TEST, THINPREP, [id number] 00:00:00 Test Item Value Reference Range Interpretation Comments SOURCE: (test code = A) Cervical/Endocervical 8001) SLIDES: (test code = 1 8011) LMP: (test code = 8021) SPECIMEN ADEQUACY: (NOTE) (test code = 06388) INTERPRETATION: (test NO EPITHELIAL code = 77417) ABNORMALITY SEE BELOW STOCK PREPARER: ANAND CALHOUN(ASCP) (test code = 8101) LOCATION: (test code (NOTE) = 63735) CPT: (test code = (NOTE) 8140) PAP TEST, THINPREP, [id number] 00:00:00 Test Item Value Reference Range Interpretation Comments SOURCE: (test code = A) Cervical/Endocervical 8001) SLIDES: (test code = 1 8011) LMP: (test code = 8021) SPECIMEN ADEQUACY: (NOTE) (test code = 85375) INTERPRETATION: (test NO EPITHELIAL code = 99867) ABNORMALITY SEE BELOW STOCK PREPARER: ANAND CALHOUN(ASCP) (test code = 8101) LOCATION: (test code (NOTE) = 94681) CPT: (test code = (NOTE) 8140) HPV HIGH RISK WITH GENOTYPE, [id number] 00:00:00 Test Item Value Reference Range Interpretation Comments HPV HIGH RISK INTERP (test code = NEGATIVE 69060) HPV 16 (test code = 65994) NEGATIVE HPV 18 (test code = 50998) NEGATIVE HPV, HR, OTHER GENOTYPES (test code NEGATIVE = 92627) HPV HIGH RISK WITH GENOTYPE, [id number] 00:00:00 Test Item Value Reference Range Interpretation Comments HPV HIGH RISK INTERP (test code = NEGATIVE 21130) HPV 16 (test code = 78755) NEGATIVE HPV 18 (test code = 52210) NEGATIVE HPV, HR, OTHER GENOTYPES (test code NEGATIVE = 33537) CBC W/AUTO [id number] 00:00:00 Test Item Value Reference Range Interpretation [...] code = 1015) 107 K/UL CBC W/AUTO [id number] 00:00:00 Test Item Value Reference Range Interpretation [...] code = 1015) 107 K/UL CBC W/AUTO [id number] 00:00:00 Test Item Value Reference Range Interpretation [...] code = 1015) 107 K/UL COMPREHENSIVE METABOLIC [id number] 00:00:00 Test Item Value Reference Range Interpretation Comments GLUCOSE (test code = 2217) 177 MG/DL BUN (test code = 2208) 9 MG/DL CREATININE (test code = 2214) 0.86 MG/DL eGFR AMER. (test code 89 ML/MIN/1.73 = 44696) eGFR NON- AMER. (test 77 ML/MIN/1.73 code = 73249) CALC BUN/CREAT (test code = 10 RATIO [...] code = 2219) 50 U/L COMPREHENSIVE METABOLIC [id number] 00:00:00 Test Item Value Reference Range Interpretation Comments GLUCOSE (test code = 2217) 177 MG/DL BUN (test code = 2208) 9 MG/DL CREATININE (test code = 2214) 0.86 MG/DL eGFR AMER. (test code 89 ML/MIN/1.73 = 55721) eGFR NON- AMER. (test 77 ML/MIN/1.73 code = 53170) CALC BUN/CREAT (test code = 10 RATIO 2235) SODIUM (test code = 2231) 137 MEQ/L POTASSIUM (test code = 2228) 4.0 MEQ/L CHLORIDE (test code = 2215) 102 MEQ/L CARBON DIOXIDE (test code = 27 MEQ/L 220) CALCIUM (test code = 2209) 9.3 MG/DL [...] code = 2219) 50 U/L COMPREHENSIVE METABOLIC [id number] 00:00:00 Test Item Value Reference Range Interpretation Comments GLUCOSE (test code = 2217) 123 MG/DL BUN (test code = 2208) 10 MG/DL CREATININE (test code = 2214) 0.74 MG/DL eGFR AMER. (test code 107 ML/MIN/1.73 = 64025) eGFR NON- AMER. (test 92 ML/MIN/1.73 code = 77380) CALCULATED BUN/CREAT (test 14 RATIO code = 2235) SODIUM (test code = 2231) 140 MEQ/L POTASSIUM (test code = 2228) 4.4 MEQ/L CHLORIDE (test code = 2215) 102 MEQ/L CARBON DIOXIDE (test code = 20 MEQ/L 2206) CALCIUM (test code = 2209) 9.8 MG/DL [...] code = 2219) 45 U/L COMPREHENSIVE METABOLIC [id number] 00:00:00 Test Item Value Reference Range Interpretation Comments GLUCOSE (test code = 2217) 123 MG/DL BUN (test code = 2208) 10 MG/DL CREATININE (test code = 2214) 0.74 MG/DL eGFR AMER. (test code 107 ML/MIN/1.73 = 56185) eGFR NON- AMER. (test 92 ML/MIN/1.73 code = 66652) CALCULATED BUN/CREAT (test 14 RATIO code = 2235) SODIUM (test code = 2231) 140 MEQ/L POTASSIUM (test code = 2228) 4.4 MEQ/L CHLORIDE (test code = 2215) 102 MEQ/L CARBON DIOXIDE (test code = 20 MEQ/L 2206) CALCIUM (test code = 2209) 9.8 MG/DL PROTEIN, TOTAL (test code = 7.7 G/DL 2228) ALBUMIN (test code = 2201) 3.7 G/DL CALCULATED GLOBULIN (test 4.0 G/DL code = 2240) CALCULATED A/G RATIO (test 0.9 RATIO code = 2234) BILIRUBIN, TOTAL (test code = 0.8 MG/DL 7) ALKALINE PHOSPHATASE (test 91 U/L code = 2204) SGOT (AST) (test code = 2218) 59 U/L SGPT (ALT) (test code = 2219) 45 U/L LIPID [id number] 00:00:00 Test Item Value Reference Range Interpretation Comments CHOLESTEROL (test code = 2210) 170 MG/DL TRIGLYCERIDES (test code = 2232) 170 MG/DL HDL CHOLESTEROL (test code = 2220) 41 MG/DL CALCULATED LDL CHOL (test code = 95 MG/DL 2237) RISK RATIO LDL/HDL (test code = 2.32 RATIO 2238) LIPID [id number] 00:00:00 Test Item Value Reference Range Interpretation Comments CHOLESTEROL (test code = 2210) 170 MG/DL TRIGLYCERIDES (test code = 2232) 170 MG/DL HDL CHOLESTEROL (test code = 2220) 41 MG/DL CALCULATED LDL CHOL (test code = 95 MG/DL 2237) RISK RATIO LDL/HDL (test code = 2.32 RATIO 2238) CBC W/AUTO [id number] 00:00:00 Test Item Value Reference Range Interpretation [...] code = 1015) 116 K/UL CBC W/AUTO [id number] 00:00:00 Test Item Value Reference Range Interpretation [...] code = 1015) 116 K/UL CBC W/AUTO [id number] 00:00:00 Test Item Value Reference Range Interpretation [...] (test code = 1015) 116 K/UL HEMOGLOBIN [id number] 00:00:00 Test Item Value Reference Range Interpretation Comments HEMOGLOBIN A1c (test code = 29362) 5.3 % HEMOGLOBIN [id number] 00:00:00 Test Item Value Reference Range Interpretation Comments HEMOGLOBIN A1c (test code = 34137) 5.3 % HEMOGLOBIN [id number] 00:00:00 Test Item Value Reference Range Interpretation Comments HEMOGLOBIN A1c (test code = 78617) 5.3 % [id number] 00:00:00 Test Item Value Reference Range Interpretation Comments TSH (test code = 2821) 1.5 UIU/ML [id number] 00:00:00 Test Item Value Reference Range Interpretation Comments TSH (test code = 2821) 1.5 UIU/ML [id number] 00:00:00 Test Item Value Reference Range Interpretation Comments TSH (test code = 2821) 1.5 UIU/ML
[2023-10-05] MEDS ORDERED: NA CHLORIDE 0.9% 1,000 ML ONE (12:32)
[2023-10-05] MEDS ORDERED: CEFEPIME 2 GM VIAL ONE (12:32)
[2023-10-05] MEDS ORDERED: NA CHLORIDE 0.9% 100 ML ONE (12:32)
[2023-10-05 12:52] LABS: Absolute Lymphocytes (CBC) 0.9 K/uL (0.7-4.9); Hematocrit 27.5 % (36.0-45.0); Lymphocytes % 4.6 % (15.3-44.8); MCV 91.5 fL (80-100); MPV 9.2 fL (7.6-11.3); Platelets 57 thou/uL (152-406)
[2023-10-05 13:03] LABS: Albumin 1.8 g/dL (3.4-5.0); Bilirubin Total 5.2 mg/dL (0.2-1.0); Potassium 3.8 mEq/L (3.5-5.1); Protein, Total 5.9 g/dL (6.4-8.2)
[2023-10-05 13:05] LABS: Protime INR 1.9
--- NOTE | 2023-10-05 13:15 | RAD REPORT ---
EXAM DESCRIPTION: RADChest Single View10/05/2023 12:49 pm CLINICAL HISTORY: FEVER COMPARISON: Chest Single View dated 12/28/2022; Chest Single View dated 12/27/2022; Chest Single View da dipika 12/27/2022; Chest Single View dated 09/23/2021 TECHNIQUE: Portable AP view of the chest. FINDINGS: Cardiomegaly. Central interstitial prominence. Elevation of the left hemidiaphragm, with s uspicion of left basilar atelectasis, airspace disease, with or without small effusion. No pneumothor ax or right effusion. Mediastinal contours otherwise unremarkable within limits of some patient rotat ion. IMPRESSION: Findings suggestive of central congestion or CHF. Left basilar airspace opacity which ma y reflect atelectasis or possibly airspace disease, with suspected small effusion.
--- NOTE | 2023-10-05 15:05 | RAD REPORT ---
EXAM DESCRIPTION: CT - Chest Abd Pelvis Wo Con - 10/05/2023 2:20 pm CLINICAL HISTORY: sepsis, r/o pna, diarrhea COMPARISON: Abdomen Pelvis W Contrast dated 09/23/2021; Mri Abdomen W/Wo Cont dated 12/17/2021 TECHNIQUE: Thin axial CT images of the chest, abdomen, and pelvis, performed without IV contrast. Mu ltiplanar reformats were generated and reviewed. All CT scans are performed using dose optimization technique as appropriate and may include automated exposure control or mA/KV adjustment according to patient size. FINDINGS: The right lung is clear apart from apical scarring.Mild layering left pleural effusion. De pendent segmental left lower lobe airspace opacification, could reflect atelectasis or airspace disea se.No pneumothorax. No intrathoracic adenopathy. Mild wall thickening along the distal esophagus. The liver again shows sequelae of cirrhosis with nodular contour of the liver. 2.6 cm hepatic dome mi ldly hypoattenuating lesion, with marginal calcifications, previously measured 23 millimeter along th e 12/17/2021 MRI. Spleen is borderline enlarged, measuring 13 cm in long axis. Pancreas, and adrenal glands are within normal limits. 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 C ortical areas of hypoattenuation, most notably with a 3.3 cm left interpolar region hypoattenuating l esion, increased in size since 2020, but overall not well evaluated. Gallbladder is decompressed bueno iting evaluation. Moderate free ascites. No bowel obstruction, free air, or abscess. Segmental prominence of the proxim al colon, as well as areas of the small bowel, nonspecific, and could relate to underlying portal hyp ertension or nonspecific inflammation. Fibroid uterus. No pathologic lymphadenopathy in the abdomen or pelvis. No worrisome osseous finding. IMPRESSION: Mild left pleural effusion. Underlying dependent segmental left lower lobe airspace opac ification, may represent atelectasis or airspace disease. Stigmata of cirrhosis, borderline splenomegaly, and moderate ascites. Right hepatic dome 2.6 cm lesion, stable to minimally increased in size since the prior MRI, now demo nstrating faint marginal mineralization. This is not well characterized, and could represent a dyspla stic nodule, hepatocellular carcinoma, among other considerations. Segmental prominence of the proximal colon as well as short segments of small bowel. This may relate to underlying portal hypertension or nonspecific enterocolitis. Enlarging hypoattenuating lesion left interpolar region, while still favored statistically to represe nt a cyst. This can be further evaluated by targeted renal ultrasound. Nonspecific mild distal esophagus wall thickening, may relate to sequelae of reflux or esophagitis. Other incidental findings as above.
--- NOTE | 2023-10-05 15:55 | P.HP ---
Certification for Inpatient Patient admitted to: Inpatient With expected LOS: <2 Midnights Patient will require the following post-hospital care: None Practitioner: I am a practitioner with admitting privileges, knowledge of patient current condition, hospital course, and medical plan of care. Services: Services provided to patient in accordance with Admission requirements found in Title 42 Section 412.3 of the Code of Federal Regulations Patient History Date of Service: 10/05/23 Reason for admission: Sepsis, pneumonia History of Present Illness: 63-year-old female with a past medical history of bipolar, cirrhosis, hepatitis C, GERD, presents to the emergency room with fever. She reports symptoms worse last over the last day or 2. She reports moderate associated weakness, frequent falls. She reports seeing Dr. Thorne as GI. She reports hepatitis C that is untreated. She reports she lives at home with boyfriend. Reports drinking 3 beers daily, daily tobacco use. She denies rectal bleeding, nausea vomiting diarrhea. Plan to admit for sepsis secondary to pneumonia without shock. Decompensated liver disease, ascites, hepatitis C. Laboratory evaluation WBCs 19.0, normocytic anemia 9.3 27.5, mild hyponatremia 134 acute on chronic kidney injury BUN 32 creatinine 1.57 transaminitis, AST 63 ALT 152, UA pending, CT of the abdomen pelvis IMPRESSION: Mild left pleural effusion. Underlying dependent segmental left lower lobe airspace opacification, may represent atelectasis or airspace disease. Stigmata of cirrhosis, borderline splenomegaly, and moderate ascites.Right hepatic dome 2.6 cm lesion, stable to minimally increased in size since the prior MRI, now demonstrating faint marginal mineralization. This is not well characterized, and could represent a dysplastic nodule, hepatocellular carcinoma, among other considerations Chest x-ray IMPRESSION: Findings suggestive of central congestion or CHF. Left basilar airspace opacity which may reflect atelectasis or possibly airspace disease, with suspected small effusion. Allergies No Known Allergies Allergy (Unverified 08/02/21 19:18) Home Medications: OLANZapine [Olanzapine] 10 mg PO BEDTIME 08/02/21 Omeprazole [Prilosec] 40 mg PO DAILY 08/02/21 Furosemide [Lasix*] 40 mg PO DAILY #30 tab 09/24/21 Amlodipine Besylate 10 mg PO DAILY 12/27/22 Lisinopril [Zestril] 40 mg PO DAILY 12/27/22 Metoprolol Tartrate [Lopressor*] 50 mg PO DAILY 12/27/22 Lactulose 30 ml PO Q12HP PRN #2000 ml 12/31/22 - Past Medical/Surgical History -: GERD -: BPD -: Hypertension -: Hep C cirrhosis -: Hepatocellular carcinoma -: Psychosocial/ Personal History: Unemployed, lives with her daughter - Family History Father -: Heart disease Mother -: Heart disease - Social History Smoking Status: Current some day smoker Alcohol use: Yes CD- Drugs: No Caffeine use: Yes Place of Residence: Home Review of Systems 10-point ROS is otherwise unremarkable Physical Examination - Physical Exam General: Alert, Oriented x2, Confused HEENT: Atraumatic, Normocephalic Neck: Supple, 2+ carotid pulse no bruit Respiratory: Diminished Cardiovascular: No edema, Normal pulses Gastrointestinal: Normal bowel sounds, No tenderness, Ascites Musculoskeletal: No clubbing, No swelling, Other (Moderate generalized weakness) Integumentary: No rashes, No breakdown Neurological: Normal speech, Other (Hepatic encephalopathy) - Studies Laboratory Data (last 24 hrs) 10/05/23 10/05/23 10/05/23 12:30 12:30 12:30 WBC 19.00 H Hgb 9.3 L Hct 27.5 L Plt Count 57 L PT 20.9 H INR 1.90 APTT 31.6 Sodium 134 L Potassium 3.8 BUN 32 H Creatinine 1.57 H Glucose 73 L Total Bilirubin 5.2 H AST 138 H ALT 63 H Alkaline Phosphatase 152 H Assessment and Plan - Plan Assessment and plan Sepsis without shock secondary to pneumonia Cefepime, nebs, Pulmonary consult to evaluate need for thoracentesis Laboratory evaluation WBCs 19.0, Chest x-ray IMPRESSION: Findings suggestive of central congestion or CHF. Left basilar airspace opacity which may reflect atelectasis or possibly airspace disease, with suspected small effusion. Blood cultures, urine cultures ordered Hepatic encephalopathy Frequent falls, fall precautions Trend MELD score Decompensated liver disease with ascites Cirrhosis secondary to hepatitis C Hepatocellular carcinoma Transaminitis Hepatitis panel, ammonia level in the a.m. diuretics ordered Interventional radiology paracentesis ordered reports seeing Dr. Thorne as GI. She reports hepatitis C that is untreated. She reports she lives at home with boyfriend. Reports drinking 3 beers daily, daily tobacco use. She denies rectal bleeding, nausea vomiting diarrhea. AST 63 ALT 152, hepatitis panel ordered UA pending, CT of the abdomen pelvis IMPRESSION: Mild left pleural effusion. Underlying dependent segmental left lower lobe airspace opacification, may represent atelectasis or airspace disease. Stigmata of cirrhosis, borderline splenomegaly, and moderate ascites.Right hepatic dome 2.6 cm lesion, stable to minimally increased in size since the prior MRI, now demonstrating faint marginal mineralization. This is not well characterized, and could represent a dysplastic nodule, hepatocellular carcinoma, among other considerations Hyponatremia Acute kidney injury Nephrology consult to manage, diuretics, trend kidney function mild hyponatremia 134 acute on chronic kidney injury BUN 32 creatinine 1.57 Normocytic anemia normocytic anemia 9.3 27.5, trend HH bipolar GERD Resume appropriate home medications Tobacco use Alcohol use Librium, CIWA precautions Full code DVT prophylaxis SCDs Diet cardiac , Discharge Plan: Home Plan to discharge in: 48 Hours - Advance Directives Does patient have a Living Will: No Does patient have a Durable POA for Healthcare: No - Code Status/Comfort Care Code Status: Full Code Physician Review: Patient Assessed, Agree with Above Assessment and Plan Critical Care: No Time Spent Managing Pts Care (In Minutes): 55
--- NOTE | 2023-10-05 16:09 | ER ---
Nurse's Notes [facility] Name: Leonila Chaudhry Age: 63 yrs Sex: Female : 1960 Arrival Date: 10/05/2023 Time: 11:24 Bed 7 Private MD: Diagnosis: Sepsis, unspecified organism;Acute kidney injury Presentation: 10/05 11:22 Chief complaint: EMS states: FROM HOME CALLED EMS FOR SWOLLEN HANDS AND DIARRHEA X 1 db WEEK. PATIENT TEMP FOR EMS WAS 101.2. Coronavirus screen: Vaccine status: Patient reports receiving the 2nd dose of the covid vaccine. Client denies travel out of the [place] in the last 14 days. At this time, the client does not indicate any symptoms associated with coronavirus-19. Ebola Screen: Patient negative for fever greater than or equal to 101.5 degrees Fahrenheit, and additional compatible Ebola Virus Disease symptoms Patient denies exposure to infectious person. Patient denies travel to an Ebola-affected area in the 21 days before illness onset. No symptoms or risks identified at this time. Initial Sepsis Screen: Does the patient meet any 2 criteria? No. Patient's initial sepsis screen is negative. Does the patient have a suspected source of infection? No. Patient's initial sepsis screen is negative. Risk Assessment: Do you want to hurt yourself or someone else? Patient reports no desire to harm self or others. Onset of symptoms was October 05, 2023. 11:22 Method Of Arrival: EMS: [facility] db 11:22 Acuity: ADAM 2 db Triage Assessment: 11:30 General: Appears in no apparent distress. comfortable, Behavior is cooperative, drowsy. db Pain: Complains of pain in right hand and left hand. Neuro: Level of Consciousness is awake, alert, obeys commands, Oriented to person, place, time, situation. Respiratory: Airway is patent Respiratory effort is even, unlabored, Respiratory pattern is regular, symmetrical. GI: Abdomen is flat, non-distended, Reports diarrhea. Historical: - Allergies: 11:30 No Known Allergies; db - Home Meds: 11:30 Amlodipine [Active]; db - PMHx: 11:30 Bipolar disorder; cirrhosis of liver; GERD; Hepatitis C; Hypertensive disorder; db - PSHx: 11:30 section; db - Immunization history:: Client reports receiving the 2nd dose of the Covid vaccine. - Social history:: Smoking status: Patient reports the use of cigarette tobacco products, smokes one pack cigarettes per day. - Family history:: not pertinent. Screenin:33 [facility] ED Fall Risk Assessment (Adult) History of falling in the last 3 months, db including since admission No falls in past 3 months (0 pts) Confusion or Disorientation No (0 pts) Intoxicated or Sedated No (0 pts) Impaired Gait Yes (1 pt) Mobility Assist Device Used Yes (1 pt) Altered Elimination No (0 pt) Score/Fall Risk Level 0 - 2 = Low Risk Oriented to surroundings, Maintained a safe environment. Abuse screen: Denies threats or abuse. Denies injuries from another. Nutritional screening: No deficits noted. Tuberculosis screening: No symptoms or risk factors identified. Assessment: 11:33 Reassessment: Patient appears in no apparent distress at this time. Patient and/or db family updated on plan of care and expected duration. Pain level reassessed. SEE TRIAGE FOR INITIAL ASSESSMENT. 12:30 Reassessment: Patient appears in no apparent distress at this time. Patient and/or db family updated on plan of care and expected duration. Pain level reassessed. Patient is alert, oriented x 3, equal unlabored respirations, skin warm/dry/pink. 13:30 Reassessment: Patient appears in no apparent distress at this time. Patient and/or db family updated on plan of care and expected duration. Pain level reassessed. Patient is alert, oriented x 3, equal unlabored respirations, skin warm/dry/pink. PT IS EATING SNACK. 14:36 Reassessment: Patient appears in no apparent distress at this time. Patient and/or db family updated on plan of care and expected duration. Pain level reassessed. Patient is alert, oriented x 3, equal unlabored respirations, skin warm/dry/pink. Reassessment: FAMILY IS AT BEDSIDE Patient states feeling better. Patient states symptoms have improved. General: Appears in no apparent distress. comfortable, Behavior is calm, cooperative. Neuro: Level of Consciousness is awake, alert, obeys commands, Oriented to person, place, time, situation. 15:48 Reassessment: No changes from previously documented assessment. ll1 16:15 Reassessment: PATIENT ASSISTED TO RESTROOM VIA WHEELCHAIR. db 17:00 Reassessment: Patient appears in no apparent distress at this time. Patient and/or db family updated on plan of care and expected duration. Pain level reassessed. Patient is alert, oriented x 3, equal unlabored respirations, skin warm/dry/pink. 18:15 Reassessment: Patient appears in no apparent distress at this time. Patient and/or db family updated on plan of care and expected duration. Pain level reassessed. Patient is alert, oriented x 3, equal unlabored respirations, skin warm/dry/pink. 18:15 Respiratory: Airway is patent Respiratory effort is even, unlabored, Respiratory db pattern is regular, symmetrical. GI: Abdomen is round distended, Patient currently denies abdominal pain. 18:30 Reassessment: SEE [employer] FOR CONTINUED CHARTING. db 19:30 Reassessment: Unsuccessful attempt to call report at this time. Room given to another [facility] patient. Charge nurse notified. Vital Signs: 11:22 BP 111 / 79; Pulse 110; Resp 18; Temp 99.5(O); Pulse Ox 95% ; Weight 77.11 kg; Height 5 db ft. 5 in. ; 12:25 BP 95 / 56; Pulse 106; Resp 28; Pulse Ox 97% on R/A; db 13:00 BP 94 / 58; Pulse 103; Resp 20; Pulse Ox 96% on R/A; db 14:00 BP 117 / 76; Pulse 113; Resp 18; Pulse Ox 100% on R/A; db 15:00 BP 91 / 61; Pulse 95; Resp 19; Pulse Ox 97% on R/A; MAP 71 mmHg; ll1 15:47 BP 92 / 57; Pulse 17; Resp 97; Pulse Ox 97% on R/A; MAP 68 mmHg; ll1 16:20 BP 89 / 54; Pulse 90; Resp 15; Pulse Ox 95% ; db 17:00 BP 89 / 60; Pulse 85; Resp 16; Pulse Ox 99% on R/A; db 18:00 BP 94 / 56; Pulse 80; Resp 16; Pulse Ox 98% on R/A; db 19:20 BP 102 / 56; Pulse 79; Resp 21; Temp 98.4(O); Pulse Ox 99% on R/A; MAP 69 mmHg; nj1 20:19 BP 107 / 59; Pulse 105; Resp 20; Pulse Ox 97% ; co1 11:22 Body Mass Index 28.29 (77.11 kg, 165.1 cm) db 16:[address] DIAZ OF BP db ED Course: 11:27 Patient arrived in ED. db 11:30 Triage completed. db 11:30 Arm band placed on Patient placed in an exam room. db 11:33 Patient has correct armband on for positive identification. Bed in low position. Call db light in reach. Side rails up X 1. Client placed on continuous cardiac and pulse oximetry monitoring. NIBP monitoring applied. 11:37 Carter Diaz MD is Attending Physician. rt 11:42 Anais Gutierrez, RN is Primary Nurse. db 12:15 Missed attempt(s): 22 gauge in left antecubital area. bc6 12:44 CPK Sent. bc6 12:44 Loving Sent. bc6 12:44 AMMONIA Sent. bc6 12:44 Blood Culture Adult (2) Sent. bc6 12:44 CBC with Diff Sent. bc6 12:44 CMP Sent. bc6 12:45 Lactate w/ 2H reflex if indic. Sent. bc6 12:45 Protime (+inr) Sent. bc6 12:45 Ptt, Activated Sent. bc6 12:45 Inserted saline lock: 22 gauge in left forearm, using aseptic technique. Blood bc6 collected. 12:50 Chest Single View XRAY In Process Unspecified. EDMS 13:10 Notified ED physician of a critical lab result(s). Lactate 2.6. nj1 14:22 Chest Abd Pelvis Wo Con In Process Unspecified. EDMS 16:07 [place] MD is Hospitalizing Provider. rt 18:00 Provided Education on: ADMISSION. db 18:00 No provider procedures requiring assistance completed. Patient admitted, IV remains in db place. Administered Medications: 12:32 Drug: NS 0.9% IV 1000 ml IV at 1 bolus Per protocol; 1000 mL bolus Route: IV; Rate: 1 db bolus; Site: left antecubital; 14:00 Follow up: Response: No adverse reaction; IV Status: Completed infusion; IV Intake: db 1000ml 12:32 Drug: Cefepime IVPB 2 grams IVPB at 200 ml/hr once over 30 mins; (mix in NS 100 mL) db Route: IVPB; Rate: 200 ml/hr; Infused Over: 30 mins; Site: left antecubital; 13:06 Follow up: Response: No adverse reaction; IV Status: Completed infusion; IV Intake: ll1 100ml 16:32 Drug: NS 0.9% IV 500 ml IV at bolus once Route: IV; Rate: bolus; Site: left antecubital;nj1 17:00 Follow up: Response: No adverse reaction; IV Status: Completed infusion; IV Intake: db 500ml Medication: 14:37 VIS not applicable for this client. db Intake: 13:06 IV: 100ml; Total: 100ml. ll1 14:00 IV: 1000ml; Total: 1100ml. db 17:00 IV: 500ml; Total: 1600ml. db Outcome: 16:09 Decision to Hospitalize by Provider. rt 18:39 Condition: stable db 18:39 Instructed on the need for admit, 20:00 Admitted to Med/surg accompanied by tech, room 212, Report called to Nurse Chely nj1 20:00 Condition: stable nj1 20:00 Instructed on the need for admit, 20:20 Patient left the ED. nj1 Signatures: Dispatcher [employer] EDMS Wilbert Salomon, RN RN ll1 Anais Gutierrez RN RN db Carter Diaz MD MD rt Ana Thomas 6 Rolanda Hood, MALI RN nj1 Corrections: (The following items were deleted from the chart) 11:30 11:22 Chief complaint: EMS states: FROM HOME CALLED EMS FOR SWOLLEN HANDS AND DIARRHEA. db PATIENT TEMP FOR EMS WAS 101.2 db 14:37 13:30 Reassessment: Patient appears in no apparent distress at this time. Patient db and/or family updated on plan of care and expected duration. Pain level reassessed. Patient is alert, oriented x 3, equal unlabored respirations, skin warm/dry/pink. db 15:06 15:00 BP 90 / 55; Pulse 95bpm; Resp 19bpm; Pulse Ox 97% RA; ll1 ll1 18:38 12:30 Reassessment: Patient appears in no apparent distress at this time. Patient db and/or family updated on plan of care and expected duration. Pain level reassessed. Patient is alert, oriented x 3, equal unlabored respirations, skin warm/dry/pink. db 19:34 19:20 BP 102 / 56; Pulse 79bpm; Resp 21bpm; Pulse Ox 99% RA; MAP 69 mmHg; nj1 nj1 20:16 18:39 Admitted to ER Hold. Please see [facility] for further documentation. db nj1
--- NOTE | 2023-10-05 16:09 | EDPHYS ---
Physician Documentation [facility] Name: Leonila Chaudhry Age: 63 yrs Sex: Female : 1960 Arrival Date: 10/05/2023 Time: 11:24 Bed 7 Private MD: ED Physician Carter Diaz HPI: 10/05 12:05 This 63 yrs old Female presents to ER via EMS with complaints of Hand rt Swelling, Diarrhea, Fever. 12:05 History limited due to patient with confusion. The patient states that she has had a rt fever, reported diarrhea for about 1 week. States the confusion has been going on since that time as well. She does take lactulose for cirrhosis. She states that she has had a bilateral hand pain for about 6 months. Denies any acute changes, injury. Denies other acute complaints at this time, symptoms are moderate in severity, no other aggravating alleviating factors.. Historical: - Allergies: 11:30 No Known Allergies; db - Home Meds: 11:30 Amlodipine [Active]; db - PMHx: 11:30 Bipolar disorder; cirrhosis of liver; GERD; Hepatitis C; Hypertensive disorder; db - PSHx: 11:30 section; db - Immunization history:: Client reports receiving the 2nd dose of the Covid vaccine. - Social history:: Smoking status: Patient reports the use of cigarette tobacco products, smokes one pack cigarettes per day. - Family history:: not pertinent. ROS: 12:05 Cardiovascular: Negative for chest pain, palpitations, and edema, Respiratory: Negative rt for shortness of breath, cough, wheezing, and pleuritic chest pain, Skin: Negative for injury, rash, and discoloration, Psych: Negative for depression, anxiety, suicide ideation, homicidal ideation, and hallucinations, 12:05 Constitutional: Positive for fatigue, fever, 12:05 Abdomen/GI: Positive for diarrhea, Negative for abdominal pain, nausea and vomiting, 12:05 MS/extremity: Positive for pain, swelling, 12:05 Neuro: Positive for altered mental status, Negative for loss of consciousness, Exam: 12:05 Constitutional: This is a well developed, well nourished patient who is awake, alert, rt and in no acute distress. Head/Face: Normocephalic, atraumatic. Chest/axilla: Normal chest wall appearance and motion. Nontender with no deformity. No lesions are appreciated. Cardiovascular: Regular rate and rhythm with a normal S1 and S2. No gallops, murmurs, or rubs. Normal PMI, no JVD. No pulse deficits. Respiratory: Lungs have equal breath sounds bilaterally, clear to auscultation and percussion. No rales, rhonchi or wheezes noted. No increased work of breathing, no retractions or nasal flaring. Abdomen/GI: Soft, non-tender, with normal bowel sounds. No distension or tympany. No guarding or rebound. No evidence of tenderness throughout. Skin: Warm, dry with normal turgor. Normal color with no rashes, no lesions, and no evidence of cellulitis. MS/ Extremity: Pulses equal, no cyanosis. Neurovascular intact. Full, normal range of motion. 12:05 ECG was reviewed by the Attending Physician. 12:05 Neuro: Confused, difficult to redirect, moves all 4 extremities equally, no cranial nerve deficits, Vital Signs: 11:22 BP 111 / 79; Pulse 110; Resp 18; Temp 99.5(O); Pulse Ox 95% ; Weight 77.11 kg; Height 5 db ft. 5 in. ; 12:25 BP 95 / 56; Pulse 106; Resp 28; Pulse Ox 97% on R/A; db 13:00 BP 94 / 58; Pulse 103; Resp 20; Pulse Ox 96% on R/A; db 14:00 BP 117 / 76; Pulse 113; Resp 18; Pulse Ox 100% on R/A; db 15:00 BP 91 / 61; Pulse 95; Resp 19; Pulse Ox 97% on R/A; MAP 71 mmHg; ll1 15:47 BP 92 / 57; Pulse 17; Resp 97; Pulse Ox 97% on R/A; MAP 68 mmHg; ll1 16:20 BP 89 / 54; Pulse 90; Resp 15; Pulse Ox 95% ; db 17:00 BP 89 / 60; Pulse 85; Resp 16; Pulse Ox 99% on R/A; db 18:00 BP 94 / 56; Pulse 80; Resp 16; Pulse Ox 98% on R/A; db 19:20 BP 102 / 56; Pulse 79; Resp 21; Temp 98.4(O); Pulse Ox 99% on R/A; MAP 69 mmHg; nj1 20:19 BP 107 / 59; Pulse 105; Resp 20; Pulse Ox 97% ; nj1 11:22 Body Mass Index 28.29 (77.11 kg, 165.1 cm) db 16:[address] DIAZ OF BP db MDM: 11:41 Patient medically screened. rt 16:09 Differential diagnosis: Sepsis, pneumonia, SBP. Data reviewed: vital signs, nurses rt notes, lab test result(s), EKG, radiologic studies. Consideration of Admission/Observation Patient was admitted/placed on observation. Management of patient was discussed with the following: Hospitalist: Agrees to admit. I considered the following discharge prescriptions or medication management in the emergency department Medications were administered in the Emergency Department. See MAR. Independent interpretation of the following test(s) in the Emergency Department X-Ray: My interpretation is No pneumothorax on interpretation. Care significantly affected by the following chronic conditions: Cirrhosis. Counseling: I had a detailed discussion with the patient and/or guardian regarding the historical points, exam findings, and any diagnostic results supporting the discharge/admit diagnosis, lab results, radiology results, the need for further work-up and treatment in the hospital. Response to treatment: the patient's symptoms have mildly improved after treatment. 10/05 11:48 Order name: Blood Culture Adult (2) rt 10/05 11:48 Order name: CBC with Diff rt 10/05 11:48 Order name: CMP; Complete Time: 13:07 rt 10/05 11:48 Order name: Lactate w/ 2H reflex if indic.; Complete Time: 13:07 rt 10/05 11:48 Order name: Protime (+inr); Complete Time: 13:07 rt 10/05 11:48 Order name: Ptt, Activated; Complete Time: 13:07 rt 10/05 11:48 Order name: Urinalysis w/ reflexes rt 10/05 11:48 Order name: AMMONIA; Complete Time: 13:21 rt 10/05 11:48 Order name: Rozel rt 10/05 11:48 Order name: CPK; Complete Time: 13:07 rt 10/05 15:55 Order name: Ammonia EDMS 10/05 15:55 Order name: Ammonia EDMS 10/05 15:55 Order name: Ammonia EDMS 10/05 15:55 Order name: Ammonia EDMS 10/05 16:45 Order name: Lactate Sepsis 2 HR Follow-up EDMS 10/05 17:57 Order name: Manual Differential EDMS 10/05 11:48 Order name: Chest Single View XRAY; Complete Time: 13:21 rt 10/05 14:08 Order name: Chest Abd Pelvis Wo Con; Complete Time: 15:07 EDMS 10/05 11:48 Order name: EKG; Complete Time: 11:49 rt 10/05 11:42 Order name: EKG - Nurse/Tech; Complete Time: 13:38 db 10/05 11:48 Order name: Accucheck; Complete Time: 12:13 rt 10/05 11:48 Order name: Cardiac monitoring; Complete Time: 12:13 rt 10/05 11:48 Order name: IV Saline Lock - Large Bore; Complete Time: 12:13 rt 10/05 11:48 Order name: Labs collected and sent; Complete Time: 12:13 rt 10/05 11:48 Order name: O2 Per Protocol; Complete Time: 12:13 rt 10/05 11:48 Order name: O2 Sat Monitoring; Complete Time: 12:13 rt 10/05 11:48 Order name: Vital Signs; Complete Time: 12:13 rt EC:05 Rate is 104 beats/min. Rhythm is regular, Sinus tachycardia with No ectopy. QRS [place] is rt Normal. OR interval is normal. QT interval is normal. No Q waves. T waves are Normal. No ST changes noted. Interpreted by me. Administered Medications: 12:32 Drug: NS 0.9% IV 1000 ml IV at 1 bolus Per protocol; 1000 mL bolus Route: IV; Rate: 1 db bolus; Site: left antecubital; 14:00 Follow up: Response: No adverse reaction; IV Status: Completed infusion; IV Intake: db 1000ml 12:32 Drug: Cefepime IVPB 2 grams IVPB at 200 ml/hr once over 30 mins; (mix in NS 100 mL) db Route: IVPB; Rate: 200 ml/hr; Infused Over: 30 mins; Site: left antecubital; 13:06 Follow up: Response: No adverse reaction; IV Status: Completed infusion; IV Intake: ll1 100ml 16:32 Drug: NS 0.9% IV 500 ml IV at bolus once Route: IV; Rate: bolus; Site: left antecubital;nj 17:00 Follow up: Response: No adverse reaction; IV Status: Completed infusion; IV Intake: db 500ml Disposition Summary: 10/05/23 16:09 Hospitalization Ordered Notes: Hospitalization Status: Inpatient Admission rt Provider: [place] rt Condition: Stable rt Problem: new rt Symptoms: have improved rt Bed/Room Type: Standard rt Location: Telemetry/MedSurg (Inpatient)(10/05/23 18:31) em1 Room Assignment: [facility](10/05/23 19:51) [facility] Diagnosis - Sepsis, unspecified organism rt - Acute kidney injury rt Forms: - Medication Reconciliation Form rt - SBAR form rt - Leadership Thank You Letter rt Signatures: Dispatcher [employer] EDMS Dominik, Steve em1 Anais Gutierrez RN RN db Carter Diaz MD MD rt Rolanda Hood RN RN nj1 [place] [id number] Wilbert Salomon RN ll1 Corrections: (The following items were deleted from the chart) 14:08 14:00 Chest Abdomen Pelvis W Con+CT.RAD.BRZ ordered. EDMS EDMS 17:55 16:09 Telemetry/MedSurg (Inpatient) rt em1 17:55 16:09 rt em1 18:31 17:55 [facility] ER HOLD em1 em1 18:31 17:55 ERHOLD- em1 em1 19:51 18:31 203 em1 [id number]
[2023-10-05] MEDS ORDERED: NA CHLORIDE 0.9% 500 ML ONE (16:42)
--- NOTE | 2023-10-05 17:30 | P.CNS ---
Date of Consult: 10/05/23 Reason for Consult: YOGI/ Hyponatremia Requesting Physician: [place] Chief Complaint: Sepsis, pneumonia History of Present Illness: 63-year-old female with a past medical history of bipolar, cirrhosis, hepatitis C, GERD, presents to the emergency room with fever. She reports symptoms worse last over the last day or 2. She reports moderate associated weakness, frequent falls. She reports seeing Dr. Thorne as GI. She reports hepatitis C that is untreated. She reports she lives at home with boyfriend. Reports drinking 3 beers daily, daily tobacco use. She denies rectal bleeding, nausea vomiting diarrhea. Plan to admit for sepsis secondary to pneumonia without shock. Decompensated liver disease, ascites, hepatitis C. Laboratory evaluation WBCs 19.0, normocytic anemia 9.3 27.5, mild hyponatremia 134 acute on chronic kidney injury BUN 32 creatinine 1.57 transaminitis, AST 63 ALT 152, UA pending, CT of the abdomen pelvis IMPRESSION: Mild left pleural effusion. Underlying dependent segmental left lower lobe airspace opacification, may represent atelectasis or airspace disease. Stigmata of cirrhosis, borderline splenomegaly, and moderate ascites.Right hepatic dome 2.6 cm lesion, stable to minimally increased in size since the prior MRI, now demonstrating faint marginal mineralization. This is not well characterized, and could represent a dysplastic nodule, hepatocellular carcinoma, among other considerations Chest x-ray IMPRESSION: Findings suggestive of central congestion or CHF. Left basilar airspace opacity which may reflect atelectasis or possibly airspace disease, with suspected small effus ion. 12:05 This 63 yrs old Female presents to ER via EMS with complaints of Hand rt Swelling, Diarrhea, Fever. 12:05 History limited due to patient with confusion. The patient states that she has had a rt fever, reported diarrhea for about 1 week. States the confusion has been going on since that time as well. She does take lactulose for cirrhosis. She states that she has had a bilateral hand pain for about 6 months. Denies any acute changes, injury. Denies other acute complaints at this time, symptoms are moderate in severity, no other aggravating alleviating factors. Allergies No Known Allergies Allergy (Verified 10/05/23 20:45) Home medications list reviewed: Yes Home Medications: Amlodipine [Norvasc*] 10 mg PO DAILY 10/06/23 Furosemide [Lasix*] 40 mg PO DAILY 10/06/23 Metoprolol Tartrate [Lopressor] 50 mg PO DAILY 10/06/23 OLANZapine [Zyprexa*] 10 mg PO DAILY 10/06/23 Omeprazole [Prilosec] 40 mg PO DAILY 10/06/23 - Past Medical/Surgical History -: GERD -: BPD -: HTN -: Hep C cirrhosis -: Hepatocellular carcinoma -: HTN -: Hx YOGI (Dr. Lambert/ Dr. Hogue) -: Psychosocial/ Personal History: Unemployed, lives with her daughter - Family History Father Medical History: Heart disease Mother Medical History: Heart disease - Social History Smoking Status: Current every day smoker Alcohol use: Yes CD- Drugs: No Caffeine use: Yes Place of Residence: Home Review of Systems 10-point ROS is otherwise unremarkable General: Weakness, Malaise Gastrointestinal: Distention Physical Examination General: In no apparent distress, Cooperative HEENT: Atraumatic Neck: Supple Respiratory: Clear to auscultation bilaterally, Normal air movement Cardiovascular: Regular rate/rhythm, Edema Gastrointestinal: Soft and benign, Distended Musculoskeletal: No clubbing, No contractures Integumentary: No rashes, No cyanosis Neurological: Normal speech Laboratory Data (last 24 hrs) 10/05/23 10/05/23 10/05/23 12:30 12:30 12:30 WBC 19.00 H Hgb 9.3 L Hct 27.5 L Plt Count 57 L PT 20.9 H INR 1.90 APTT 31.6 Sodium 134 L Potassium 3.8 BUN 32 H Creatinine 1.57 H Glucose 73 L Total Bilirubin 5.2 H AST 138 H ALT 63 H Alkaline Phosphatase 152 H Imagings Data: EXAM DESCRIPTION: CT - Chest Abd Pelvis Wo Con - 10/05/2023 2:20 pm CLINICAL HISTORY: sepsis, r/o pna, diarrhea COMPARISON: Abdomen Pelvis W Contrast dated 09/23/2021; Mri Abdomen W/Wo Cont dated 12/17/2021 TECHNIQUE: Thin axial CT images of the chest, abdomen, and pelvis, performed without IV contrast. Multiplanar reformats were generated and reviewed. All CT scans are performed using dose optimization technique as appropriate and may include automated exposure control or mA/KV adjustment according to patient size. FINDINGS: The right lung is clear apart from apical scarring.Mild layering left pleural effusion. Dependent segmental left lower lobe airspace opacification, could reflect atelectasis or airspace disease.No pneumothorax. No intrathoracic adenopathy. Mild wall thickening along the distal esophagus. The liver again shows sequelae of cirrhosis with nodular contour of the liver. 2.6 cm hepatic dome mildly hypoattenuating lesion, with marginal calcifications, previously measured 23 millimeter along the 12/17/2021 MRI. Spleen is borderline enlarged, measuring 13 cm in long axis. Pancreas, and adrenal glands are within normal limits. 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 Cortical areas of hypoattenuation, most notably with a 3.3 cm left interpolar region hypoattenuating lesion, increased in size since 2020, but overall not well evaluated. Gallbladder is decompressed limiting evaluation. Moderate free ascites. No bowel obstruction, free air, or abscess. Segmental prominence of the proximal colon, as well as areas of the small bowel, nonspecific, and could relate to underlying portal hypertension or nonspecific inflammation. Fibroid uterus. No pathologic lymphadenopathy in the abdomen or pelvis. No worrisome osseous finding. IMPRESSION: Mild left pleural effusion. Underlying dependent segmental left lower lobe airspace opacification, may represent atelectasis or airspace disease. Stigmata of cirrhosis, borderline splenomegaly, and moderate ascites. Right hepatic dome 2.6 cm lesion, stable to minimally increased in size since the prior MRI, now demonstrating faint marginal mineralization. This is not well characterized, and could represent a dysplastic nodule, hepatocellular carcinoma, among other considerations. Segmental prominence of the proximal colon as well as short segments of small bowel. This may relate to underlying portal hypertension or nonspecific enterocolitis. Enlarging hypoattenuating lesion left interpolar region, while still favored statistically to represent a cyst. This can be further evaluated by targeted renal ultrasound. Nonspecific mild distal esophagus wall thickening, may relate to sequelae of reflux or esophagitis. Other incidental findings as above. EXAM DESCRIPTION: RADChest Single View10/05/2023 12:49 pm CLINICAL HISTORY: FEVER COMPARISON: Chest Single View dated 12/28/2022; Chest Single View dated 12/27/2022; Chest Single View dated 12/27/2022; Chest Single View dated 09/23/2021 TECHNIQUE: Portable AP view of the chest. FINDINGS: Cardiomegaly. Central interstitial prominence. Elevation of the left hemidiaphragm, with suspicion of left basilar atelectasis, airspace disease, with or without small effusion. No pneumothorax or right effusion. Mediastinal contours otherwise unremarkable within limits of some patient rotation. IMPRESSION: Findings suggestive of central congestion or CHF. Left basilar airspace opacity which may reflect atelectasis or possibly airspace disease, with suspected small effusion. Conclusions/Impression: Stage II YOGI likely multifactorial including hypotension in the setting of liver disease -No NSAIDs Hypervolemic Hyponatremia -Continue Lasix -Fluid restriction HTN complicated by hypotension -Hold antihypertensives at this time -Albumin IV prn Severe Hypoalbuminemia -Consider protein supplementation Liver Cirrhosis with Ascites Chronic HCV HCC Chronic Alcohol Follows with Dr. Pruett -Consider paracentesis Hepatic Encephalopathy -Lactulose prn Anemia in chronic illness -Monitor H&H -Transfuse PRBC prn Sepsis/ PNA -Continue Abx -Follow up cultures Cigarette Smoker -Recommend cessation -Nicotine TD prn Hospitalist and ER notes reviewed Thank you kindly for the consultation Critical Care: Yes
[2023-10-05 17:57] LABS: Blood Morphology Comment NOT SEEN (NOT SEEN); Platelet Estimate DECR; Toxic Granulation PRESENT
[2023-10-05] MEDS ORDERED: ONDANSETRON 4 MG/2 ML VIAL IV PRN (18:53)
[2023-10-05] MEDS ORDERED: FLUMAZENIL 0.1 MG/ML (5 mL VIAL) IV PRN (18:53)
[2023-10-05] MEDS ORDERED: LORazepam 2 MG/ML VIAL IV PRN (18:53)
[2023-10-05] MEDS: ALBUTEROL 2.5 MG/3 ML NEB SOL NEB SCH (21:01)
[2023-10-05] MEDS: FUROSEMIDE 40 MG/4 ML VIAL IV SCH (21:03)
[2023-10-05] MEDS: chlordiazePOXIDE HCl 25 MG CAP PO SCH ×2 (21:03→23:45)
[2023-10-06] MEDS ORDERED: CEFEPIME 2 GM in NA CHLORIDE 0.9% 100 ML IV SCH ×2
[2023-10-06] MEDS: ALBUTEROL 2.5 MG/3 ML NEB SOL NEB SCH ×4 (02:50→20:00)
[2023-10-06 04:12] LABS: Absolute Lymphocytes (CBC) 1.5 K/uL (0.7-4.9); Lymphocytes % 7.6 % (15.3-44.8); MCV 92.4 fL (80-100); MPV 9.2 fL (7.6-11.3); Platelets 63 thou/uL (152-406); RBC Red Blood Cell Count 2.81 M/uL (3.86-4.86)
[2023-10-06 04:20] LABS: Protime INR 1.94
[2023-10-06 05:32] LABS: Albumin 1.7 g/dL (3.4-5.0); Bilirubin Total 4.7 mg/dL (0.2-1.0); Magnesium 2.3 mg/dL (1.6-2.4); Potassium 3.8 mEq/L (3.5-5.1); Protein, Total 5.8 g/dL (6.4-8.2); Uric Acid 6.4 mg/dL (2.6-6.0)
[2023-10-06] MEDS: chlordiazePOXIDE HCl 25 MG CAP PO SCH ×4 (06:00→20:37)
[2023-10-06 07:00] LABS: Hepatitis B Core IgM Nonreactive (Nonreactive); Hepatitis B surface AG Interp. Nonreactive (Nonreactive); Hepatitis C Virus Ab Reactive (Nonreactive)
[2023-10-06] MEDS ORDERED: POTASSIUM PHOS IN 0.9 % NACL 15 MMOL/250 ML BAG IV ONE (08:00)
[2023-10-06] MEDS: FOLIC ACID 1 MG TABLET PO SCH (08:37)
[2023-10-06] MEDS: SPIRONOLACTONE 25 MG TABLET PO SCH (08:37)
[2023-10-06] MEDS: MULTIVITAMIN TAB PO SCH (08:37)
[2023-10-06] MEDS: THIAMINE HCL 100 MG TABLET PO SCH (08:38)
[2023-10-06] MEDS: FUROSEMIDE 40 MG/4 ML VIAL IV SCH (08:40)
[2023-10-06] MEDS: ALBUMIN HUMAN 25% 100 ML IV SCH ×2 (10:29→22:18)
--- NOTE | 2023-10-06 11:23 | P.PN ---
Nephrology note (S) Pt reports feeling better overall, s/p paracentesis, getting IV Albumin, denies abd pain, no LUNDBERG. BP no longer low (O) Vitals, labs and imaging reports reviewed in the chart General: In no apparent distress, Cooperative HEENT: Atraumatic, not needing O2 Neck: Supple Respiratory: b/l air entry without rales or wheezing Cardiovascular: Regular rate/rhythm mostly Gastrointestinal: Soft and NT, mild distention Musculoskeletal: Mild distal edema b/l Integumentary: No rashes Neurological: Normal speech, awake, alert, non encephalopathic Laboratory Data (last 24 hrs) Reviewed in the EMR Imagings Data: EXAM DESCRIPTION: CT - Chest Abd Pelvis Wo Con - 10/05/2023 2:20 pm CLINICAL HISTORY: sepsis, r/o pna, diarrhea COMPARISON: Abdomen Pelvis W Contrast dated 09/23/2021; Mri Abdomen W/Wo Cont dated 12/17/2021 TECHNIQUE: Thin axial CT images of the chest, abdomen, and pelvis, performed wi thout IV contrast. Multiplanar reformats were generated and reviewed. All CT scans are performed using dose optimization technique as appropriate and may include automated exposure control or mA/KV adjustment according to patient size. FINDINGS: The right lung is clear apart from apical scarring.Mild layering left pleural effusion. Dependent segmental left lower lobe airspace opacification, could reflect atelectasis or airspace disease.No pneumothorax. No intrathoracic adenopathy. Mild wall thickening along the distal esophagus. The liver again shows sequelae of cirrhosis with nodular contour of the liver. 2.6 cm hepatic dome mildly hypoattenuating lesion, with marginal calcifications, previously measured 23 mi llimeter along the 12/17/2021 MRI. Spleen is borderline enlarged, measuring 13 cm in long axis. Pancreas, and adrenal glands are within normal limits. 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 Cortical areas of hypoattenuation, most notably with a 3.3 cm left interpolar region hypoattenuating lesion, increased in size since 2020, but overall not well evaluated. Gallbladder is decompressed limiting evaluation. Moderate free ascites. No bowel obstruction, free air, or abscess. Segmental prominence of the proximal colon, as well as areas of the small bowel, nonspecific, and could relate to underlying portal hypertension or nonspecific inflammation. Fibroid uterus. No pathologic lymphadenopathy in the abdomen or pelvis. No worrisome osseous finding. IMPRESSION: Mild left pleural effusion. Underlying dependent segmental left lower lobe airspace opacification, may represent atelectasis or airspace disease. Stigmata of cirrhosis, borderline splenomegaly, and moderate ascites. Right hepatic dome 2.6 cm lesion, stable to minimally increased in size since the prior MRI, now demonstrating faint marginal mineralization. This is not well characterized, and could represent a dysplastic nodule, hepatocellular carcinoma, among other considerations. Segmental prominence of the proximal colon as well as short segments of small bowel. This may relate to underlying portal hypertension or nonspecific enterocolitis. Enlarging hypoattenuating lesion left interpolar region, while still favored statistically to represent a cyst. This can be further evaluated by targeted renal ultrasound. Nonspecific mild distal esophagus wall thickening, may relate to sequelae of reflux or esophagitis. Other incidental findings as above. Conclusions/Impression: Stage II YOGI, Cr level rise > 0.5 mg/dl from baseline -Likely multifactorial and in the setting of hypotension, underlying effective arterial blood vol depletion in the setting of cirrhosis and portal HTN. Pt is non oliguric. Renal function test stable on repeat. -Will check UA and random [place] -Cont to monitor closely Hypotension, other -Multifactorial and in the setting of meds, liver disease +/- infection -Recommend d/c'ing Amlodipine on discharge -SBP > 100 mmHg this AM but will order IV Albumin 25% q12h x 2 doses Liver Cirrhosis unspecified with Ascites -Decompensated with abnormal LFTs and recurrent ascites and other. S/p paracentesis, f/u any ascitic fluid studies. Will cont diuretics as currently ordered but will lower lasix dose, no gross fluid overload Leukocytosis, unspecified -W/u and empiric Abx per primary team Anemia in chronic illness -Monitor H&H closely Tim Hogue MD, NINFA
--- NOTE | 2023-10-06 13:15 | RAD REPORT ---
EXAM DESCRIPTION: US - Paracentesis Proc Guidance - 10/06/2023 9:49 am CLINICAL HISTORY: Liver disease with ascites FINDINGS: The risks, benefits and alternatives to the procedure were explained to the patient and in formed consent obtained. The skin and deeper tissues were anesthetized with Lidocaine. Under sonographic guidance an 8 Portuguese catheter was placed into the right lower quadrant. .5 liters of yellow fluid removed. Fluid sent to t he lab. The patient experienced no immediate complication. IMPRESSION: Paracentesis
--- NOTE | 2023-10-06 14:25 | EKG ---
Test Date: 2023-10-05 Test Time: 11:36:46 Set Decorator: THERESA Rivera MEASUREMENT RESULTS: Intervals: Rate: 104 PA: 122 QRSD: 80 QT: 316 QTc: 415 [place]: P: 60 PA: 122 QRS: 42 T: 64 INTERPRETIVE STATEMENTS: Sinus tachycardia Otherwise normal ECG Compared to ECG 12/27/2022 12:52:32 Sinus bradycardia no longer present Electronically Signed On 10-06-23 14:22:31 [employer]IN [employer]ATER by Jaylon Wheat
[2023-10-06] MEDS: FUROSEMIDE 20 MG/ 2ML VIAL IV SCH (16:40)
[2023-10-06] MEDS ORDERED: ALBUMIN HUMAN 25% 100 ML IV ONE (18:00)
[2023-10-06 23:10] LABS: Specific Gravity 1.007 (1.005-1.030); Urine Bacteria <20 /HPF (<20); Urine Bilirubin NEGATIVE (Negative); Urine Blood Negative (Negative); Urine Clarity Turbid (Clear); Urine Color Yellow (Yellow); Urine Crystals Unidentified Few /HPF (None Seen); Urine Glucose NEGATIVE (Negative); Urine Mucus Slight /HPF (None Seen); Urine Protein NEGATIVE (Negative); Urine RBC <5 /HPF (None Seen); Urine Urobilinogen Normal (Normal)
[2023-10-07] MEDS: CEFEPIME 2 GM in NA CHLORIDE 0.9% 100 ML IV SCH ×2 (00:01→23:51)
[2023-10-07] MEDS: ALBUTEROL 2.5 MG/3 ML NEB SOL NEB SCH ×4 (01:20→21:25)
[2023-10-07 05:14] LABS: Absolute Lymphocytes (CBC) 1.5 K/uL (0.7-4.9); Hematocrit 23.9 % (36.0-45.0); Lymphocytes % 10.9 % (15.3-44.8); MCV 91.1 fL (80-100); Platelets 61 thou/uL (152-406); Protime INR 2.15; RBC Red Blood Cell Count 2.63 M/uL (3.86-4.86)
[2023-10-07 05:27] LABS: Albumin 2.6 g/dL (3.4-5.0); Bilirubin Total 4.9 mg/dL (0.2-1.0); Magnesium 1.8 mg/dL (1.6-2.4); Potassium 3.5 mEq/L (3.5-5.1); Protein, Total 6.2 g/dL (6.4-8.2)
[2023-10-07] MEDS: chlordiazePOXIDE HCl 25 MG CAP PO SCH ×4 (05:41→23:51)
[2023-10-07] MEDS ORDERED: MAGNESIUM SULFATE 1 gm IVPB 1 GM/100 ML BAG IV ONE (08:00)
[2023-10-07] MEDS: FOLIC ACID 1 MG TABLET PO SCH (08:05)
[2023-10-07] MEDS: THIAMINE HCL 100 MG TABLET PO SCH (08:05)
[2023-10-07] MEDS: MULTIVITAMIN TAB PO SCH (08:10)
[2023-10-07] MEDS: POTASS/SODIUM PHOSPHATE 1 PKT POWD.PACK PO SCH ×3 (08:17→10:05)
[2023-10-07] MEDS: FUROSEMIDE 20 MG/ 2ML VIAL IV SCH ×2 (08:17→16:32)
[2023-10-07] MEDS: SPIRONOLACTONE 25 MG TABLET PO SCH (08:17)
[2023-10-07] MEDS ORDERED: POTASSIUM 25 MEQ EFFERV TAB PO ONE (09:00)
[2023-10-07 09:27] LABS: Blood Morphology Comment NOT SEEN (NOT SEEN); Platelet Estimate DECR; White Blood Cell Scan OK (OK)
--- NOTE | 2023-10-07 16:08 | PN ---
Date of Progress Note: 10/07/2023 Subjective: Patient was seen and examined at bedside. She is doing okay. Denies any complaints. N o overnight events were noted. Objective: Vital Signs: Have been reviewed. Blood pressures are running in the low 100s. General: She appears in no acute distress. HEENT: Shows atraumatic head. Lungs: Clear to auscultation. Abdomen: Soft and nontender auscultation of heart revealed regular rate and rhythm. Extremities: Showed no evidence of edema. Laboratory Data: Showing creatinine of 1.36, improving from 1.5 and other electrolytes are stable. LFTs were noted to be elevated. AST of 140 and ALT of 72. CBC showing hemoglobin of 8.2, hematocrit 23.9, and platelet count of 61, and WBC count of 14.1. Impression: 1.Acute on chronic renal insufficiency secondary to underlying type 2 hepatorenal syndrome, currentl y with overall stable renal function. 2.Chronic hypotension in the setting of liver cirrhosis. Continue to monitor and giving amlodipine very cautiously. 3.Acute decompensated liver cirrhosis with abnormal LFTs, status post paracentesis. The patient is being followed by primary team and will need follow up with hepatology as outpatient. 4.Leukocytosis, source of infection unclear. Currently remains on antibiotics at this time. Plan: Overall, patient's renal function is stable. Avoid severe hypotension and nephrotoxins. Cont inue gentle diuresis at this time and will follow up closely. VV/MODL Voice ID: [id number] Report ID: [id number]
[2023-10-08] MEDS: ALBUTEROL 2.5 MG/3 ML NEB SOL NEB SCH ×4 (02:00→19:15)
[2023-10-08] MEDS: OLANZapine 10 MG TABLET PO SCH (08:44)
[2023-10-08] MEDS: METOPROLOL TAR 50 MG TAB PO SCH (08:44)
[2023-10-08] MEDS: PANTOPRAZOLE 40MG TABLET PO SCH (08:44)
[2023-10-08] MEDS: SPIRONOLACTONE 25 MG TABLET PO SCH (08:45)
[2023-10-08] MEDS: FOLIC ACID 1 MG TABLET PO SCH (08:45)
[2023-10-08] MEDS: MULTIVITAMIN TAB PO SCH (08:45)
[2023-10-08] MEDS: AMLODIPINE 10 MG TAB PO SCH (08:45)
[2023-10-08] MEDS: chlordiazePOXIDE HCl 25 MG CAP PO SCH (08:45)
[2023-10-08] MEDS: THIAMINE HCL 100 MG TABLET PO SCH (08:45)
[2023-10-08] MEDS: FUROSEMIDE 20 MG/ 2ML VIAL IV SCH ×2 (08:46→16:39)
[2023-10-08] MEDS ORDERED: chlordiazePOXIDE HCl 5 MG CAP PO SCH (13:00)
[2023-10-08 13:06] LABS: Absolute Lymphocytes (CBC) 1.7 K/uL (0.7-4.9); MPV 8.7 fL (7.6-11.3); Platelets 102 thou/uL (152-406); RBC Red Blood Cell Count 3.16 M/uL (3.86-4.86)
[2023-10-08 13:13] LABS: Protime INR 2.13
[2023-10-08 13:35] LABS: Albumin 2.4 g/dL (3.4-5.0); Bilirubin Total 5.7 mg/dL (0.2-1.0); Magnesium 2.1 mg/dL (1.6-2.4); Phosphorus 2.6 mg/dL (2.5-4.9); Potassium 4.2 mEq/L (3.5-5.1); Protein, Total 6.9 g/dL (6.4-8.2)
[2023-10-08 16:59] LABS: Urine Bacteria <20 /HPF (<20); Urine Bilirubin NEGATIVE (Negative); Urine Blood 1+ (Negative); Urine Clarity Extremely Turbid (Clear); Urine Color Yellow (Yellow); Urine Crystals Unidentified Few /HPF (None Seen); Urine Glucose NEGATIVE (Negative); Urine Mucus Slight /HPF (None Seen); Urine Protein 1+ (Negative); Urine RBC <5 /HPF (None Seen); Urine Urobilinogen 2+ (Normal); Urine WBC Clump Rare /HPF (None Seen)
[2023-10-08 17:06] LABS: UR PROTEIN 47.3 mg/dL (<11.9); Urine Protein/Creatinine Ratio 0.88 ratio (<0.15)
[2023-10-08] MEDS: chlordiazePOXIDE HCl 5 MG CAP PO SCH (21:28)
[2023-10-09] MEDS ORDERED: CEFEPIME 2 GM in NA CHLORIDE 0.9% 100 ML IV SCH ×2
[2023-10-09] MEDS: ALBUTEROL 2.5 MG/3 ML NEB SOL NEB SCH ×4 (00:45→19:12)
[2023-10-09 00:54] VITALS: BMI 29.1
--- NOTE | 2023-10-09 05:42 | P.PN ---
Date of Service: 10/06/23 Subjective Patient is doing well with no new complaints. Patient clinical symptoms are improving. Blood cultures positive for gram-negative rods Physical Examination -Vitals Reviewed -Physical Exam General: Alert, Oriented x2, Confused Respiratory: Diminished Cardiovascular: No edema, Normal pulses Gastrointestinal: Normal bowel sounds, No tenderness, Ascites Musculoskeletal: No clubbing, No swelling, Other (Moderate generalized weakness) Integumentary: Within normal limits Neurological: No focal deficits Assessment and Plan -Assessment and Plan Assessment and plan -Sepsis without shock secondary to spontaneous bacterial peritonitis; Gram stain pending Continue with antibiotic regimen: Cefepime Status post paracentesis. Patient with possible peritonitis although Gram stain's are negative. Hepatic encephalopathy Frequent falls, fall precautions; ammonia level within normal limits Decompensated liver disease with ascites Cirrhosis secondary to hepatitis C Hepatocellular carcinoma Continue monitoring liver disease. We will hold off on anxiolytics Hyponatremia Acute kidney injury Continue with monitoring sodium level and renal function; hold off on albumin Normocytic anemia Hemoglobin is stable Bipolar GERD Resume appropriate home medications Tobacco use Alcohol use Librium, CIWA precautions Full code DVT prophylaxis SCDs Diet cardiac Discharge Plan: Home Plan to discharge in: 48 Hours - Advance Directives Does patient have a Living Will: No Does patient have a Durable POA for Healthcare: No - Code Status/Comfort Care Code Status: Full Code Physician Review: Patient Assessed, Agree with Above Assessment and Plan Critical Care: No Time Spent Managing Pts Care (In Minutes): 30
--- NOTE | 2023-10-09 05:43 | P.PN ---
Date of Service: 10/07/23 Subjective Patient with no new complaints. Clinical symptoms are stable. Blood cultures positive for E. coli which is sensitive to multiple antibiotics. Continue with cefepime. Peritoneal fluid is negative. Physical Examination -Vitals Reviewed -Physical Exam General: Alert, Oriented x2, Confused Respiratory: Diminished Cardiovascular: No edema, Normal pulses Gastrointestinal: Normal bowel sounds, No tenderness, Ascites Musculoskeletal: No clubbing, No swelling, Other (Moderate generalized weakness) Integumentary: Within normal limits Neurological: No focal deficits Assessment and Plan -Assessment and Plan Assessment and plan -Sepsis without shock secondary to spontaneous bacterial peritonitis; Gram stain pending Continue with antibiotic regimen as patient with positive blood cultures for E. coli which is pansensitive. Continue cefepime. Most likely source is from peritoneal fluid although Gram stain is negative. Continue cefepime at this time. Hepatic encephalopathy Frequent falls, fall precautions; ammonia level within normal limits Decompensated liver disease with ascites Cirrhosis secondary to hepatitis C Hepatocellular carcinoma Continue monitoring liver disease. We will hold off on anxiolytics Hyponatremia Acute kidney injury Continue with monitoring sodium level and renal function; hold off on albumin Normocytic anemia Hemoglobin is stable Bipolar GERD Resume appropriate home medications Tobacco use Alcohol use Librium, CIWA precautions Full code DVT prophylaxis SCDs Diet cardiac Discharge Plan: Home Plan to discharge in: 48 Hours - Advance Directives Does patient have a Living Will: No Does patient have a Durable POA for Healthcare: No - Code Status/Comfort Care Code Status: Full Code Physician Review: Patient Assessed, Agree with Above Assessment and Plan Critical Care: No Time Spent Managing Pts Care (In Minutes): 30
--- NOTE | 2023-10-09 05:44 | P.PN ---
Date of Service: 10/08/23 Subjective Patient is doing well with no new complaints. Patient's clinical symptoms are stable. Patient denies any new complaints. Continue with cefepime. Patient more awake and alert. Physical Examination -Vitals Reviewed -Physical Exam General: Alert, Oriented x2, Confused Respiratory: Diminished Cardiovascular: No edema, Normal pulses Gastrointestinal: Normal bowel sounds, No tenderness, Ascites Musculoskeletal: No clubbing, No swelling, Other (Moderate generalized weakness) Integumentary: Within normal limits Neurological: No focal deficits Assessment and Plan -Assessment and Plan Assessment and plan -Sepsis without shock secondary to spontaneous bacterial peritonitis; Gram stain pending Continue with antibiotic regimen. Patient on cefepime. Blood cultures were positive. Peritoneal fluid was negative for Gram stain. Continue with antibiotic regimen as patient with positive blood cultures for E. coli which is pansensitive. Continue cefepime. Most likely source is from peritoneal fluid although Gram stain is negative. Continue cefepime at this time. Hepatic encephalopathy Frequent falls, fall precautions; ammonia level within normal limits Decompensated liver disease with ascites Cirrhosis secondary to hepatitis C Hepatocellular carcinoma Continue monitoring liver disease. We will hold off on anxiolytics Hyponatremia Acute kidney injury Continue with monitoring sodium level and renal function; hold off on albumin Normocytic anemia Hemoglobin is stable Bipolar GERD Resume appropriate home medications Tobacco use Alcohol use Librium, CIWA precautions Full code DVT prophylaxis SCDs Diet cardiac Discharge Plan: Home Plan to discharge in: 48 Hours - Advance Directives Does patient have a Living Will: No Does patient have a Durable POA for Healthcare: No - Code Status/Comfort Care Code Status: Full Code Physician Review: Patient Assessed, Agree with Above Assessment and Plan Critical Care: No Time Spent Managing Pts Care (In Minutes): 30
[2023-10-09 06:45] LABS: Bilirubin Total 4.8 mg/dL (0.2-1.0); Potassium 4.7 mEq/L (3.5-5.1); Protein, Total 6.1 g/dL (6.4-8.2)
[2023-10-09 06:49] LABS: Absolute Lymphocytes (CBC) 1.7 K/uL (0.7-4.9); Hematocrit 25.5 % (36.0-45.0); Lymphocytes % 11.6 % (15.3-44.8); MPV 8.8 fL (7.6-11.3); Platelets 97 thou/uL (152-406); RBC Red Blood Cell Count 2.77 M/uL (3.86-4.86)
[2023-10-09] MEDS: THIAMINE HCL 100 MG TABLET PO SCH (07:51)
[2023-10-09] MEDS: SPIRONOLACTONE 25 MG TABLET PO SCH (07:51)
[2023-10-09] MEDS: OLANZapine 10 MG TABLET PO SCH (07:51)
[2023-10-09] MEDS: FOLIC ACID 1 MG TABLET PO SCH (07:52)
[2023-10-09] MEDS: PANTOPRAZOLE 40MG TABLET PO SCH (07:52)
[2023-10-09] MEDS: AMLODIPINE 10 MG TAB PO SCH (07:52)
[2023-10-09] MEDS: FUROSEMIDE 20 MG/ 2ML VIAL IV SCH ×2 (07:53→16:33)
[2023-10-09] MEDS: MULTIVITAMIN TAB PO SCH (07:53)
[2023-10-09] MEDS: METOPROLOL TAR 50 MG TAB PO SCH (07:53)
--- NOTE | 2023-10-09 09:13 | RAD REPORT ---
EXAM DESCRIPTION: [place] Single View10/09/2023 4:28 am CLINICAL HISTORY: Chest pain COMPARISON: October 05, 2023 FINDINGS: Worsening in the left basilar lung opacity. Small left pleural effusion Right lung appears clear. Heart remains enlarged IMPRESSION: Worsening in the left basilar opacity probably pneumonia Small left pleural
[2023-10-09] MEDS: chlordiazePOXIDE HCl 5 MG CAP PO SCH ×2 (11:17→21:06)
--- NOTE | 2023-10-09 15:56 | P.PN ---
Subjective Date of Service: 10/09/23 Chief Complaint: Sepsis, pneumonia Subjective: No new changes, Tolerating diet, Working w/ PT Patient seen at bedside. Patient working with physical therapy. Patient denies any s\s of distress. Continue supportive care Review of Systems General: Unremarkable Eyes: Unremarkable ENT: Unremarkable Respiratory: Unremarkable Cardiovascular: Unremarkable Gastrointestinal: Unremarkable Genitourinary: Unremarkable Musculoskeletal: Unremarkable Integumentary: Other (Jaundiced ) Neurological: Confusion Lymphatics: Unremarkable Physical Examination - Vital Signs Temperature: 97.5 F Blood Pressure: 110/54 Pulse: 80 Respirations: 16 Pulse Ox (%): 99 - Physical Exam General: Oriented x2 HEENT: Atraumatic, PERRLA, EOMI Neck: Supple, JVD not distended Respiratory: Clear to auscultation bilaterally, Normal air movement Cardiovascular: Regular rate/rhythm, Normal S1 S2 Capillary refill: <2 Seconds Gastrointestinal: Normal bowel sounds, Soft and benign, No tenderness Musculoskeletal: No clubbing, No tenderness Integumentary: Other (jaundiced ) Neurological: Normal speech, Normal tone, Normal affect Lymphatics: No axilla or inguinal lymphadenopathy Assessment And Plan - Plan -Assessment and Plan Assessment and plan Interval Hx 10/09/23 Patient seen at bedside. Renal functions improving. [employer] Agent on board. WBC trending down. Continue antibiotics. Patient working with physical therapy but reports that she was unable to do much today. H\H is stable. We will continue to monitor hemoglobin and transfuse if less than 7.0. Continue supportive care. -Sepsis without shock secondary to spontaneous bacterial peritonitis; Gram stain pending Continue with antibiotic regimen. Patient on cefepime. Blood cultures were positive. Peritoneal fluid was negative for Gram stain. Continue with antibiotic regimen as patient with positive blood cultures for E. coli which is pansensitive. Continue cefepime. Most likely source is from peritoneal fluid although Gram stain is negative. Continue cefepime at this time. Hepatic encephalopathy Frequent falls, fall precautions; ammonia level within normal limits Decompensated liver disease with ascites Cirrhosis secondary to hepatitis C Hepatocellular carcinoma Continue monitoring liver disease. We will hold off on anxiolytics Hyponatremia Acute kidney injury Continue with monitoring sodium level and renal function; hold off on albumin Normocytic anemia Hemoglobin is stable Bipolar GERD Resume appropriate home medications Tobacco use Alcohol use Librium, CIWA precautions Full code DVT prophylaxis SCDs Diet cardiac Discharge Plan: Home Plan to discharge in: 48 Hours - Advance Directives Does patient have a Living Will: No Does patient have a Durable POA for Healthcare: No - Code Status/Comfort Care Code Status: Full Code Physician Review: Patient Assessed, Agree with Above Assessment and Plan Critical Care: No Time Spent Managing Pts Care (In Minutes): 30 Discharge Plan: Home Plan to discharge in: Greater than 2 days - Code Status/Comfort Care Code Status Assessed: Yes Code Status: Full Code Physician Review: Patient Assessed, Agree with Above Assessment and Plan
[2023-10-09] MEDS: CEFTRIAXONE 2,000 MG in NA CHLORIDE 0.9% 100 ML IV SCH (16:33)
--- NOTE | 2023-10-09 20:28 | P.PN ---
Date of Service: 10/09/23 Vital Signs Temp Pulse Resp BP Pulse Ox 97.5 F 80 16 121/56 L 98 10/09/23 16:00 10/09/23 16:33 10/09/23 16:00 10/09/23 16:33 10/09/23 16:00 Medications Albuterol Sulfate (Albuterol 2.5 Mg/3 Ml Neb Shreya) 2.5 mg NEB [id number] [facility] Last Admin: 10/09/23 19:12 Dose: 2.5 mg Amlodipine Besylate (Amlodipine 10 Mg Tab) 10 mg PO DAILY [facility] Last Admin: 10/09/23 07:52 Dose: 10 mg Chlordiazepoxide HCl (Chlordiazepoxide Hcl 5 Mg Cap) 10 mg PO Q12H [facility] Last Admin: 10/09/23 11:17 Dose: 10 mg Flumazenil (Flumazenil 0.1 Mg/Ml (5 Ml Vial)) 0.2 mg IV 1X PRN PRN Reason: RESP <8,STUPOROUS/UNAROUSABLE Folic Acid (Folic Acid 1 Mg Tablet) 1 mg PO DAILY [facility] Last Admin: 10/09/23 07:52 Dose: 1 mg Furosemide (Furosemide 20 Mg/ 2ml Vial) 20 mg IV BIDL [facility] Last Admin: 10/09/23 16:33 Dose: 20 mg Ceftriaxone Sodium 2,000 mg/ (Sodium Chloride) 100 mls @ 200 mls/hr IV DAILY [facility] Last Admin: 10/09/23 16:33 Dose: 100 mls Metoprolol Tartrate (Metoprolol Tar 50 Mg Tab) 50 mg PO DAILY [facility] Last Admin: 10/09/23 07:53 Dose: Not Given Multivitamins/Minerals (Multivitamin Tab) 1 tab PO DAILY [facility] Last Admin: 10/09/23 07:53 Dose: 1 tab Olanzapine (Olanzapine 10 Mg Tablet) 10 mg PO DAILY [facility] Last Admin: 10/09/23 07:51 Dose: 10 mg Ondansetron HCl (Ondansetron 4 Mg/2 Ml Vial) 4 mg IV Q6HP PRN PRN Reason: NAUSEA / VOMITING Pantoprazole Sodium (Pantoprazole 40mg Tablet) 40 mg PO DAILY [facility] Last Admin: 10/09/23 07:52 Dose: 40 mg Spironolactone (Spironolactone 25 Mg Tablet) 25 mg PO DAILY [facility] Last Admin: 10/09/23 07:51 Dose: 25 mg Thiamine HCl (Thiamine Hcl 100 Mg Tablet) 100 mg PO DAILY [facility] Last Admin: 10/09/23 07:51 Dose: 100 mg Microbiology Results 10/05/23 12:30 Blood - Blood Aerobic Blood Culture - Final Escherichia Coli 10/05/23 12:30 Blood - Blood Blood Culture Gram Stain - Final 10/05/23 12:30 Blood - Blood Anaerobic Blood Culture - Final Escherichia Coli 10/05/23 12:30 Blood - Blood Gram Stain - Final 10/05/23 12:15 Blood - Blood Aerobic Blood Culture - Final Escherichia Coli 10/05/23 12:15 Blood - Blood Blood Culture Gram Stain - Final 10/05/23 12:15 Blood - Blood Anaerobic Blood Culture - Final Escherichia Coli 10/05/23 12:15 Blood - Blood Gram Stain - Final Assessment/ Plan: Nephrology No dyspnea No chest pain No acute events overnight Limited IH/ ROS due to confusion Vitals, medications, blood work and imaging reviewed in the chart. General: In no apparent distress, Cooperative HEENT: Atraumatic Neck: Supple Respiratory: Clear to auscultation bilaterally, Normal air movement Cardiovascular: Regular rate/rhythm, Edema trace Gastrointestinal: Soft and benign, Distended Musculoskeletal: No clubbing, No contractures Integumentary: No rashes, No cyanosis Neurological: Normal speech Laboratory Data (last 24 hrs) 10/05/23 10/05/23 10/05/23 12:30 12:30 12:30 WBC 19.00 H Hgb 9.3 L Hct 27.5 L Plt Count 57 L PT 20.9 H INR 1.90 APTT 31.6 Sodium 134 L Potassium 3.8 BUN 32 H Creatinine 1.57 H Glucose 73 L Total Bilirubin 5.2 H AST 138 H ALT 63 H Alkaline Phosphatase 152 H Imagings Data: EXAM DESCRIPTION: CT - Chest Abd Pelvis Wo Con - 10/05/2023 2:20 pm CLINICAL HISTORY: sepsis, r/o pna, diarrhea COMPARISON: Abdomen Pelvis W Contrast dated 09/23/2021; Mri Abdomen W/Wo Cont dated 12/17/2021 TECHNIQUE: Thin axial CT images of the chest, abdomen, and pelvis, performed without IV contrast. Multiplanar reformats were generated and reviewed. All CT scans are performed using dose optimization technique as appropriate and may include automated exposure control or mA/KV adjustment according to patient size. FINDINGS: The right lung is clear apart from apical scarring.Mild layering left pleural effusion. Dependent segmental left lower lobe airspace opacification, could reflect atelectasis or airspace disease.No pneumothorax. No intrathoracic adenopathy. Mild wall thickening along the distal esophagus. The liver again shows sequelae of cirrhosis with nodular contour of the liver. 2.6 cm hepatic dome mildly hypoattenuating lesion, with marginal calcifications, previously measured 23 millimeter along the 12/17/2021 MRI. Spleen is borderline enlarged, measuring 13 cm in long axis. Pancreas, and adrenal glands are within normal limits. 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 Cortical areas of hypoattenuation, most notably with a 3.3 cm left interpolar region hypoattenuating lesion, increased in size since 2020, but overall not well evaluated. Gallbladder is decompressed limiting evaluation. Moderate free ascites. No bowel obstruction, free air, or abscess. Segmental prominence of the proximal colon, as well as areas of the small bowel, nonspecific, and could relate to underlying portal hypertension or nonspecific inflammation. Fibroid uterus. No pathologic lymphadenopathy in the abdomen or pelvis. No worrisome osseous finding. IMPRESSION: Mild left pleural effusion. Underlying dependent segmental left lower lobe airspace opacification, may represent atelectasis or airspace disease. Stigmata of cirrhosis, borderline splenomegaly, and moderate ascites. Right hepatic dome 2.6 cm lesion, stable to minimally increased in size since the prior MRI, now demonstrating faint marginal mineralization. This is not well characterized, and could represent a dysplastic nodule, hepatocellular carcinoma, among other considerations. Segmental prominence of the proximal colon as well as short segments of small bowel. This may relate to underlying portal hypertension or nonspecific enterocolitis. Enlarging hypoattenuating lesion left interpolar region, while still favored statistically to represent a cyst. This can be further evaluated by targeted renal ultrasound. Nonspecific mild distal esophagus wall thickening, may relate to sequelae of reflux or esophagitis. Other incidental findings as above. [facility] CLINICAL HISTORY: FEVER COMPARISON: Chest Single View dated 12/28/2022; Chest Single View dated 12/27/2022; Chest Single View dated 12/27/2022; Chest Single View dated 09/23/2021 TECHNIQUE: Portable AP view of the chest. FINDINGS: Cardiomegaly. Central interstitial prominence. Elevation of the left hemidiaphragm, with suspicion of left basilar atelectasis, airspace disease, with or without small effusion. No pneumothorax or right effusion. Mediastinal contours otherwise unremarkable within limits of some patient rotation. IMPRESSION: Findings suggestive of central congestion or CHF. Left basilar airspace opacity which may reflect atelectasis or possibly airspace disease, with suspected small effusion. Conclusions/Impression: Stage II YOGI likely multifactorial including hypotension in the setting of liver disease CKD I with Proteinuria -No NSAIDs Hypervolemic Hyponatremia -Continue Lasix -Fluid restriction HTN complicated by hypotension -Hold antihypertensives at this time -Albumin IV prn Severe Hypoalbuminemia -Consider protein supplementation Liver Cirrhosis with Ascites Chronic HCV HCC Chronic Alcohol Follows with Dr. Pruett -S/P paracentesis Hepatic Encephalopathy -Lactulose prn Anemia in chronic illness -Monitor H&H -Transfuse PRBC prn E.coli Sepsis Lobar PNA -Continue Abx Cigarette Smoker -Recommend cessation -Nicotine TD prn Hospitalist note reviewed
[2023-10-10] MEDS: ALBUTEROL 2.5 MG/3 ML NEB SOL NEB SCH ×5 (00:59→19:03)
[2023-10-10] MEDS: THIAMINE HCL 100 MG TABLET PO SCH (09:00)
[2023-10-10] MEDS: SPIRONOLACTONE 25 MG TABLET PO SCH (09:39)
[2023-10-10] MEDS: OLANZapine 10 MG TABLET PO SCH (09:39)
[2023-10-10] MEDS: PANTOPRAZOLE 40MG TABLET PO SCH (09:39)
[2023-10-10] MEDS: FOLIC ACID 1 MG TABLET PO SCH (09:39)
[2023-10-10] MEDS: MULTIVITAMIN TAB PO SCH (09:39)
[2023-10-10] MEDS: AMLODIPINE 10 MG TAB PO SCH (09:40)
[2023-10-10] MEDS: METOPROLOL TAR 50 MG TAB PO SCH (09:40)
[2023-10-10] MEDS: chlordiazePOXIDE HCl 5 MG CAP PO SCH ×2 (09:41→22:00)
[2023-10-10] MEDS: FUROSEMIDE 20 MG/ 2ML VIAL IV SCH ×2 (09:41→18:43)
[2023-10-10] MEDS: CEFTRIAXONE 2,000 MG in NA CHLORIDE 0.9% 100 ML IV SCH (09:41)
[2023-10-10 13:46] LABS: Hematocrit 29.3 % (36.0-45.0); MCV 92.9 fL (80-100); MPV 8.8 fL (7.6-11.3); Platelets 137 thou/uL (152-406); RBC Red Blood Cell Count 3.16 M/uL (3.86-4.86)
[2023-10-10 13:47] LABS: Absolute Lymphocytes (CBC) 1.7 K/uL (0.7-4.9); Lymphocytes % 10.8 % (15.3-44.8)
--- NOTE | 2023-10-10 15:50 | P.PN ---
Subjective Date of Service: 10/10/23 Chief Complaint: Sepsis, pneumonia Subjective: Improving Patient seen at bedside. Patient making with physical therapy. Patient denies any s\s of distress. Continue supportive care Review of Systems General: Weakness Eyes: Unremarkable ENT: Unremarkable Respiratory: Unremarkable Cardiovascular: Unremarkable Gastrointestinal: Unremarkable Genitourinary: Unremarkable Musculoskeletal: Unremarkable Integumentary: Unremarkable Neurological: Confusion Lymphatics: Unremarkable Physical Examination - Vital Signs Temperature: 97.4 F Blood Pressure: 110/62 Pulse: 89 Respirations: 16 Pulse Ox (%): 100 - Physical Exam General: Alert, In no apparent distress, Oriented x2, Cooperative, Confused HEENT: Atraumatic, PERRLA, EOMI Neck: Supple, JVD not distended Respiratory: Normal air movement, Diminished Cardiovascular: No edema, Regular rate/rhythm, Normal S1 S2 Capillary refill: <2 Seconds Gastrointestinal: Normal bowel sounds, No tenderness Musculoskeletal: No clubbing, No tenderness Integumentary: No rashes Neurological: Normal speech, Normal tone, Normal affect Lymphatics: No axilla or inguinal lymphadenopathy Assessment And Plan - Plan -Assessment and Plan Assessment and plan Interval Hx 10/10/23 Patient seen at bedside. Patient confused but patient denies any signs and symptoms of distress. Patient making progressive with physical therapy. Renal functions remained stable. H&H improving. We will continue to monitor hemoglobin and transfuse if less than 7.0. Continue antibiotics. Continue supportive care. 10/09/23 Patient seen at bedside. Renal functions improving. [employer] Operator on board. WBC trending down. Continue antibiotics. Patient working with physical therapy but reports that she was unable to do much today. H\H is stable. We will continue to monitor hemoglobin and transfuse if less than 7.0. Continue sup portive care. -Sepsis without shock secondary to spontaneous bacterial peritonitis; Gram stain pending Continue with antibiotic regimen. Patient on cefepime. Blood cultures were positive. Peritoneal fluid was negative for Gram stain. Continue with antibiotic regimen as patient with positive blood cultures for E. coli which is pansensitive. Continue cefepime. Most likely source is from peritoneal fluid although Gram stain is negative. Continue cefepime at this time. Hepatic encephalopathy Frequent falls, fall precautions; ammonia level within normal limits Decompensated liver disease with ascites Cirrhosis secondary to hepatitis C Hepatocellular carcinoma Continue monitoring liver disease. We will hold off on anxiolytics Hyponatremia Acute kidney injury Continue with monitoring sodium level and renal function; hold off on albumin Normocytic anemia Hemoglobin is stable Bipolar GERD Resume appropriate home medications Tobacco use Alcohol use Librium, CIWA precautions Full code DVT prophylaxis SCDs Diet cardiac Discharge Plan: Home Plan to discharge in: 48 Hours - Advance Directives Does patient have a Living Will: No Does patient have a Durable POA for Healthcare: No - Code Status/Comfort Care Code Status: Full Code Physician Review: Patient Assessed, Agree with Above Assessment and Plan Critical Care: No Time Spent Managing Pts Care (In Minutes): 30 Discharge Plan: Home Plan to discharge in: Greater than 2 days - Code Status/Comfort Care Code Status Assessed: Yes Physician Review: Patient Assessed, Agree with Above Assessment and Plan Critical Care: No
--- NOTE | 2023-10-10 17:18 | P.DS ---
Admission Date: 10/05/23 Discharge Date: 10/10/23 Disposition: DC HOME/HOME HEALTH CARE Discharge Condition: GOOD Reason for Admission: Sepsis, pneumonia Hospital Course: Patient is 63-year-old female with a past medical history of bipolar, cirrhosis, hepatitis C, GERD who presents to the hospital with complaints of fever with associated signs and symptoms of weakness, frequent falls. Patient was diagnosed with sepsis secondary to pneumonia. Patient was placed on antibiotics. Nephrology was consulted for management of YOGI . Blood cultures positive for E. coli which was sensitive to multiple antibiotics. Peritoneal fluid was noted as negative. Patient had paracentesis. Patient clinical conditions improved over time. Patient worked with physical therapy and Patient showed remarkable improvement. Patient was set-up with home health upon discharge. Renal functions also improved over time. Patient was deemed stable to be discharged by the attending doctor. Patient was instructed to follow up with her PCP and stabber. Patient was discharged home in stable condition with antibiotics. Vital Signs/Physical Exam: Temp Pulse Resp BP Pulse Ox 97.5 F 71 16 114/72 97 10/10/23 16:00 10/10/23 16:00 10/10/23 16:00 10/10/23 16:00 10/10/23 16:00 Laboratory Data at Discharge: WBC 15.40 thou/uL (4.3-10.9) H 10/10/23 13:08 Hgb 9.8 g/dL (12.0-15.0) L 10/10/23 13:08 Hct 29.3 % (36.0-45.0) L 10/10/23 13:08 Plt Count 137 thou/uL (152-406) L 10/10/23 13:08 PT 23.4 SECONDS (9.5-12.5) H 10/08/23 12:56 INR 2.13 10/08/23 12:56 APTT 31.6 SECONDS (24.3-36.9) 10/05/23 12:30 Sodium 133 mEq/L (136-145) L 10/10/23 13:08 Potassium 5.0 mEq/L (3.5-5.1) 10/10/23 13:08 BUN 30 mg/dL (7-18) H 10/10/23 13:08 Creatinine 1.19 mg/dL (0.55-1.02) H 10/10/23 13:08 Glucose 110 mg/dL (74-106) H 10/10/23 13:08 Uric Acid 6.4 mg/dL (2.6-6.0) H 10/06/23 03:34 Phosphorus 2.6 mg/dL (2.5-4.9) 10/08/23 12:56 Magnesium 2.0 mg/dL (1.6-2.4) 10/09/23 06:06 Total Bilirubin 4.8 mg/dL (0.2-1.0) H 10/09/23 06:06 AST 107 U/L (15-37) H 10/09/23 06:06 ALT 74 U/L (13-56) H 10/09/23 06:06 Alkaline Phosphatase 127 U/L (45-117) H 10/09/23 06:06 Home Medications: Amlodipine [Norvasc*] 10 mg PO DAILY 10/06/23 Furosemide [Lasix*] 40 mg PO DAILY 10/06/23 Metoprolol Tartrate [Lopressor] 50 mg PO DAILY 10/06/23 OLANZapine [Zyprexa*] 10 mg PO DAILY 10/06/23 Omeprazole [Prilosec] 40 mg PO DAILY 10/06/23 Ciprofloxacin HCl [Cipro 500 MG Tablet] 500 mg PO BID 7 Days #14 tab 10/10/23 New Medications: Ciprofloxacin HCl [Cipro 500 MG Tablet] 500 mg PO BID 7 Days #14 tab Followup: URSZULA ENRIQUEZ [Primary Care Provider] -
[2023-10-10 20:22] VITALS: BP 104/53; TEMP 98.4
--- NOTE | 2023-10-10 21:15 | P.PN ---
Date of Service: 10/10/23 Vital Signs Temp Pulse Resp BP Pulse Ox 98.4 F 77 18 104/53 L 95 10/10/23 20:00 10/10/23 20:00 10/10/23 20:00 10/10/23 20:00 10/10/23 20:00 Medications Albuterol Sulfate (Albuterol 2.5 Mg/3 Ml Neb Shreya) 2.5 mg NEB [id number] [facility] Last Admin: 10/10/23 19:03 Dose: Not Given Amlodipine Besylate (Amlodipine 10 Mg Tab) 10 mg PO DAILY [facility] Last Admin: 10/10/23 09:40 Dose: 10 mg Chlordiazepoxide HCl (Chlordiazepoxide Hcl 5 Mg Cap) 10 mg PO Q12H [facility] Last Admin: 10/10/23 09:41 Dose: 10 mg Flumazenil (Flumazenil 0.1 Mg/Ml (5 Ml Vial)) 0.2 mg IV 1X PRN PRN Reason: RESP <8,STUPOROUS/UNAROUSABLE Folic Acid (Folic Acid 1 Mg Tablet) 1 mg PO DAILY [facility] Last Admin: 10/10/23 09:39 Dose: 1 mg Furosemide (Furosemide 20 Mg/ 2ml Vial) 20 mg IV BIDL [facility] Last Admin: 10/10/23 18:43 Dose: 20 mg Ceftriaxone Sodium 2,000 mg/ (Sodium Chloride) 100 mls @ 200 mls/hr IV DAILY [facility] Last Admin: 10/10/23 09:41 Dose: 100 mls Metoprolol Tartrate (Metoprolol Tar 50 Mg Tab) 50 mg PO DAILY [facility] Last Admin: 10/10/23 09:40 Dose: 50 mg Multivitamins/Minerals (Multivitamin Tab) 1 tab PO DAILY [facility] Last Admin: 10/10/23 09:39 Dose: 1 tab Olanzapine (Olanzapine 10 Mg Tablet) 10 mg PO DAILY [facility] Last Admin: 10/10/23 09:39 Dose: 10 mg Ondansetron HCl (Ondansetron 4 Mg/2 Ml Vial) 4 mg IV Q6HP PRN PRN Reason: NAUSEA / VOMITING Pantoprazole Sodium (Pantoprazole 40mg Tablet) 40 mg PO DAILY [facility] Last Admin: 10/10/23 09:39 Dose: 40 mg Spironolactone (Spironolactone 25 Mg Tablet) 25 mg PO DAILY [facility] Last Admin: 10/10/23 09:39 Dose: 25 mg Thiamine HCl (Thiamine Hcl 100 Mg Tablet) 100 mg PO DAILY [facility] Last Admin: 10/10/23 09:00 Dose: Not Given Microbiology Results 10/05/23 12:30 Blood - Blood Aerobic Blood Culture - Final Escherichia Coli 10/05/23 12:30 Blood - Blood Blood Culture Gram Stain - Final 10/05/23 12:30 Blood - Blood Anaerobic Blood Culture - Final Escherichia Coli 10/05/23 12:30 Blood - Blood Gram Stain - Final 10/05/23 12:15 Blood - Blood Aerobic Blood Culture - Final Escherichia Coli 10/05/23 12:15 Blood - Blood Blood Culture Gram Stain - Final 10/05/23 12:15 Blood - Blood Anaerobic Blood Culture - Final Escherichia Coli 10/05/23 12:15 Blood - Blood Gram Stain - Final Assessment/ Plan: Nephrology No dyspnea No chest pain No acute events overnight Limited IH/ ROS due to confusion Vitals, medications, blood work and imaging reviewed in the chart. General: In no apparent distress, Cooperative HEENT: Atraumatic Neck: Supple Respiratory: Clear to auscultation bilaterally, Normal air movement Cardiovascular: Regular rate/rhythm, Edema trace Gastrointestinal: Soft and benign, Distended Musculoskeletal: No clubbing, No contractures Integumentary: No rashes, No cyanosis Neurological: Normal speech Laboratory Data (last 24 hrs) 10/05/23 10/05/23 10/05/23 12:30 12:30 12:30 WBC 19.00 H Hgb 9.3 L Hct 27.5 L Plt Count 57 L PT 20.9 H INR 1.90 APTT 31.6 Sodium 134 L Potassium 3.8 BUN 32 H Creatinine 1.57 H Glucose 73 L Total Bilirubin 5.2 H AST 138 H ALT 63 H Alkaline Phosphatase 152 H Imagings Data: EXAM DESCRIPTION: CT - Chest Abd Pelvis Wo Con - 10/05/2023 2:20 pm CLINICAL HISTORY: sepsis, r/o pna, diarrhea COMPARISON: Abdomen Pelvis W Contrast dated 09/23/2021; Mri Abdomen W/Wo Cont dated 12/17/2021 TECHNIQUE: Thin axial CT images of the chest, abdomen, and pelvis, performed without IV contrast. Multiplanar reformats were generated and reviewed. All CT scans are performed using dose optimization technique as appropriate and may include automated exposure control or mA/KV adjustment according to patient size. FINDINGS: The right lung is clear apart from apical scarring.Mild layering left pleural effusion. Dependent segmental left lower lobe airspace opacification, could reflect atelectasis or airspace disease.No pneumothorax. No intrathoracic adenopathy. Mild wall thickening along the distal esophagus. The liver again shows sequelae of cirrhosis with nodular contour of the liver. 2.6 cm hepatic dome mildly hypoattenuating lesion, with marginal calcifications, previously measured 23 millimeter along the 12/17/2021 MRI. Spleen is borderline enlarged, measuring 13 cm in long axis. Pancreas, and adrenal glands are within normal limits. 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 Cortical areas of hypoattenuation, most notably with a 3.3 cm left interpolar region hypoattenuating lesion, increased in size since 2020, but overall not well evaluated. Gallbladder is decompressed limiting evaluation. Moderate free ascites. No bowel obstruction, free air, or abscess. Segmental prominence of the proximal colon, as well as areas of the small bowel, nonspecific, and could relate to underlying portal hypertension or nonspecific inflammation. Fibroid uterus. No pathologic lymphadenopathy in the abdomen or pelvis. No worrisome osseous finding. IMPRESSION: Mild left pleural effusion. Underlying dependent segmental left lower lobe airspace opacification, may represent atelectasis or airspace disease. Stigmata of cirrhosis, borderline splenomegaly, and moderate ascites. Right hepatic dome 2.6 cm lesion, stable to minimally increased in size since the prior MRI, now demonstrating faint marginal mineralization. This is not well characterized, and could represent a dysplastic nodule, hepatocellular carcinoma, among other considerations. Segmental prominence of the proximal colon as well as short segments of small bowel. This may relate to underlying portal hypertension or nonspecific enterocolitis. Enlarging hypoattenuating lesion left interpolar region, while still favored statistically to represent a cyst. This can be further evaluated by targeted renal ultrasound. Nonspecific mild distal esophagus wall thickening, may relate to sequelae of reflux or esophagitis. Other incidental findings as above. EXAM DESCRIPTION: RADChest Single View10/05/2023 12:49 pm CLINICAL HISTORY: FEVER COMPARISON: Chest Single View dated 12/28/2022; Chest Single View dated 12/27/2022; Chest Single View dated 12/27/2022; Chest Single View dated 09/23/2021 TECHNIQUE: Portable AP view of the chest. FINDINGS: Cardiomegaly. Central interstitial prominence. Elevation of the left hemidiaphragm, with suspicion of left basilar atelectasis, airspace disease, with or without small effusion. No pneumothorax or right effusion. Mediastinal contours otherwise unremarkable within limits of some patient rotation. IMPRESSION: Findings suggestive of central congestion or CHF. Left basilar airspace opacity which may reflect atelectasis or possibly airspace disease, with suspected small effusion. Conclusions/Impression: Stage II YOGI likely multifactorial including hypotension in the setting of liver disease CKD I with Proteinuria -No NSAIDs Hypervolemic Hyponatremia -Continue Lasix -Fluid restriction HTN complicated by hypotension -Hold antihypertensives at this time -Albumin IV prn Severe Hypoalbuminemia -Consider protein supplementation Liver Cirrhosis with Ascites Chronic HCV HCC Chronic Alcohol Follows with Dr. Pruett -S/P paracentesis Hepatic Encephalopathy -Lactulose prn Anemia in chronic illness -Monitor H&H -Transfuse PRBC prn E.coli Sepsis Lobar PNA -Continue Abx Cigarette Smoker -Recommend cessation -Nicotine TD prn Hospitalist note reviewed
[2023-10-10 21:17] LABS: GLUCOSE, PERITONEAL FLUID 76 mg/dL; TOTAL PROTEIN,PERITONEAL FLUID <3.0 g/dL
[2023-10-10 22:24] VITALS: O2SAT 95
== END 2023-10-10 22:20 | disposition home health service (06) | DRG 871 ==
LOC: ER 11:24 → ERHOLD 16:16 → 2ND 20:14
PROVIDERS: ADMIT Hospitalist; ATTEND Internal Medicine Nephrology
PROC: 0W9G3ZZ Drainage of Peritoneal Cavity, Percutaneous Approach (ICD-10-PCS; principal; 2023-10-06)
DX: A41.51 Sepsis due to Escherichia coli [E. coli] (principal); J18.9 Pneumonia, unspecified organism; K65.2 Spontaneous bacterial peritonitis; N17.9 Acute kidney failure, unspecified; R18.8 Other ascites; E87.1 Hypo-osmolality and hyponatremia; C22.0 Liver cell carcinoma; K74.60 Unspecified cirrhosis of liver; K76.82 Hepatic encephalopathy; F31.9 Bipolar disorder, unspecified; K21.9 Gastro-esophageal reflux disease without esophagitis; E88.09 Other disorders of plasma-protein metabolism, not elsewhere classified; I12.9 Hypertensive chronic kidney disease with stage 1 through stage 4 chronic kidney disease, or unspecified chronic kidney disease; N18.1 Chronic kidney disease, stage 1; D63.1 Anemia in chronic kidney disease; D63.8 Anemia in other chronic diseases classified elsewhere; B19.20 Unspecified viral hepatitis C without hepatic coma; F17.210 Nicotine dependence, cigarettes, uncomplicated; R74.01 Elevation of levels of liver transaminase levels; Z56.0 Unemployment, unspecified; Z79.899 Other long term (current) drug therapy
CPT/HCPCS: 36415; 49083; 71045; 71250; 74176; 80048; 80053; 80074; 80178; 81001; 82042; 82140; 82533; 82550; 82570; 82945; 83605; 83735; 83880; 84100; 84145; 84156; 84157; 84300; 84550; 85025; 85610; 85730; 86160; 87040; 87070; 87077; 87086; 87088; 87186; 87205; 93005; 96361; 96365; 97110; 97116; 97162; 97530; 99285; J0692; J0696; J1940; J3475; J7030; J7040; J7613; P9047

== ENCOUNTER 2024-05-20 08:11 | Emergency (ER) | payer OTHER ==
--- NOTE | 2024-05-20 08:20 | ER ---
Nurse's Notes [facility] Name: Leonila Chaudhry Age: 64 yrs Sex: Female : 1960 Arrival Date: 05/20/2024 Time: 08:11 Bed 6 Private MD: Diagnosis: Encounter for medication refill Presentation: 05/20 08:14 Chief complaint: EMS states: Called EMS for allergic reaction to medication prescribed ph to pt yesterday in ED, pt reports itching to bilateral ankles, pt states, " I told them I needed some Flexeril and they didn't give it to me, they gave me some other shit.". Coronavirus screen: Vaccine status: Patient reports receiving the 1st dose of the Covid vaccine. Ebola Screen: No symptoms or risks identified at this time. Onset: The symptoms/episode began/occurred this morning. Anaphylaxis evaluation, no signs or symptoms of anaphylaxis were noted. Initial Sepsis Screen: Does the patient meet any 2 criteria? No. Patient's initial sepsis screen is negative. Does the patient have a suspected source of infection? No. Patient's initial sepsis screen is negative. Risk Assessment: Do you want to hurt yourself or someone else? Patient reports no desire to harm self or others. Onset of symptoms was May 20, 2024. 08:14 Method Of Arrival: EMS: [facility] 08:14 Acuity: ADAM 4 ph Triage Assessment: 08:20 General: Appears in no apparent distress. Behavior is cooperative, fussy. Pain: ph Complains of pain in "all over". Neuro: Level of Consciousness is awake, alert, obeys commands, Oriented to person, place, time, situation. Cardiovascular: Capillary refill < 3 seconds in bilateral fingers Patient's skin is warm and dry. Respiratory: Airway is patent Respiratory effort is even, unlabored, Respiratory pattern is regular, symmetrical. Derm: Skin is pink, warm \\T\\ dry. Reports itching, to bilateral ankles, skin dry in appearance. Musculoskeletal: Circulation, motion, and sensation intact. Range of motion: intact in all extremities. Historical: - Allergies: 08:19 LITHIUM DERIVITIVES; ph - Home Meds: 08:19 Amlodipine [Active]; lisinopril Oral [Active]; Metoprolol Tartrate Oral [Active]; ph olanzapine Oral [Active]; Omeprazole Oral [Active]; - PMHx: 08:19 Bipolar disorder; cirrhosis of liver; GERD; Hepatitis C; Hypertensive disorder; ph - PSHx: 08:19 section; ph - Immunization history:: Adult Immunizations unknown. - Infectious Disease History:: Denies. - Social history:: Smoking status: unknown. Screenin:22 [facility] ED Fall Risk Assessment (Adult) History of falling in the last 3 months, ph including since admission No falls in past 3 months (0 pts) Confusion or Disorientation No (0 pts) Intoxicated or Sedated No (0 pts) Impaired Gait No (0 pts) Mobility Assist Device Used No (0 pt) Altered Elimination No (0 pt) Score/Fall Risk Level 0 - 2 = Low Risk Oriented to surroundings, Maintained a safe environment, Hourly rounding (assess needs \\T\\ fall precautionary measures) done. Abuse screen: Denies threats or abuse. Denies injuries from another. Nutritional screening: No deficits noted. Tuberculosis screening: No symptoms or risk factors identified. Assessment: 08:39 General: SEE TRIAGE ASSESSMENT. Respiratory: Airway is patent Breath sounds are clear ph bilaterally. Vital Signs: 08:14 BP 144 / 81; Pulse 98; Resp 18; Temp 97.9; Pulse Ox 100% on R/A; Weight 77.11 kg; ph Height 5 ft. 4 in. ; 08:14 Body Mass Index 29.18 (77.11 kg, 162.56 cm) ph ED Course: 08:13 Patient arrived in ED. ph 08:14 Ava Williamson PA-C is PHCP. sb4 08:14 Eduardo Barrett MD is Attending Physician. sb4 08:19 Triage completed. ph 08:22 Arm band placed on Patient placed in an exam room, on a stretcher. ph 08:22 Patient has correct armband on for positive identification. Pulse ox on. NIBP on. ph 08:39 Aruna Martell RN is Primary Nurse. ph 08:43 No provider procedures requiring assistance completed. Patient did not have IV access ph during this emergency room visit. Administered Medications: No medications were administered Medication: 08:22 VIS not applicable for this client. ph Outcome: 08:20 Discharge ordered by . sb4 08:43 Discharged to home via wheelchair, with family, ph 08:43 Condition: good 08:43 Discharge instructions given to patient, Instructed on discharge instructions, follow up and referral plans. medication usage, Demonstrated understanding of instructions, follow-up care, medications, Prescriptions given X 2 08:44 Patient left the ED. ph Signatures: Aruna Martell, RN RN Ava Morgan, PA-C PA-C sb4
--- NOTE | 2024-05-20 08:20 | EDPHYS ---
Physician Documentation [facility] Name: Leonila Chaudhry Age: 64 yrs Sex: Female : 1960 Arrival Date: 05/20/2024 Time: 08:11 Bed 6 Private MD: ED Physician Eduardo Barrett HPI: 05/20 08:23 This 64 yrs old Female presents to ER via EMS with complaints of Allergic sb4 Reaction, medication refill. 08:23 The patient presents with itching. Onset: The symptoms/episode began/occurred this sb4 morning. Associated signs and symptoms: The patient has no apparent associated signs or symptoms. patient was released from residential recently, came here yesterday requesting medication refill, had her antihypertensives and flexeril refilled. states she wasn't given her flexeril, was given something else, and now is having an allergic reaction- itching on her ankles. Historical: - Allergies: 08:19 LITHIUM DERIVITIVES; ph - Home Meds: 08:19 Amlodipine [Active]; lisinopril Oral [Active]; Metoprolol Tartrate Oral [Active]; ph olanzapine Oral [Active]; Omeprazole Oral [Active]; - PMHx: 08:19 Bipolar disorder; cirrhosis of liver; GERD; Hepatitis C; Hypertensive disorder; ph - PSHx: 08:19 section; ph - Immunization history:: Adult Immunizations unknown. - Infectious Disease History:: Denies. - Social history:: Smoking status: unknown. ROS: 08:23 Constitutional: Negative for fever, chills, and weight loss, sb4 08:23 Skin: Positive for itching, 08:23 All other systems are negative, Exam: 08:23 Head/Face: Normocephalic, atraumatic. Eyes: Extra-ocular motions intact. Periorbital sb4 areas with no swelling, redness, or edema. 08:23 Constitutional: The patient appears alert, awake, agitated, 08:23 Skin: Appearance: Moisture: dry, 08:23 Psych: Behavior/mood is aggressive, Patient has no thoughts/intents to harm self or others. Vital Signs: 08:14 BP 144 / 81; Pulse 98; Resp 18; Temp 97.9; Pulse Ox 100% on R/A; Weight 77.11 kg; ph Height 5 ft. 4 in. ; 08:14 Body Mass Index 29.18 (77.11 kg, 162.56 cm) ph MDM: 08:14 Patient medically screened. sb4 08:23 Data reviewed: vital signs, nurses notes, EMS record, and as a result, I will discharge sb4 patient. Counseling: I had a detailed discussion with the patient and/or guardian regarding the historical points, exam findings, and any diagnostic results supporting the discharge/admit diagnosis, to return to the emergency department if symptoms worsen or persist or if there are any questions or concerns that arise at home. Administered Medications: No medications were administered Disposition Summary: 05/20/24 08:20 Discharge Ordered Notes: Location: Home sb4 Problem: an ongoing problem sb4 Symptoms: are unchanged sb4 Condition: Stable sb4 Diagnosis - Encounter for medication refill sb4 Followup: sb4 - With: Private Physician - When: 1 week - Reason: Continuance of care Discharge Instructions: - Discharge Summary Sheet sb4 Forms: - Patient Portal Instructions sb4 - Leadership Thank You Letter sb4 Prescriptions: - Doxepin 25 mg Oral Capsule - take 1 capsule ORAL route every 8 hours; 14 capsule; Refills: 0, Product sb4 Selection Permitted - Cyclobenzaprine 5 mg Oral Tablet - take 1 tablet ORAL route 3 times per day As needed; 15 tablet; Refills: 0, sb4 Product Selection Permitted Signatures: Aruna Martell, RN RN Ava Morgan PA-C PA-C sb4
[2024-05-20 09:34] VITALS: BP 144/81; TEMP 97.9; O2SAT 100
== END 2024-05-20 08:44 | disposition home or self-care (01) ==
LOC: ER 08:11
DX: Z76.0 Encounter for issue of repeat prescription (principal); L29.9 Pruritus, unspecified; Z88.8 Allergy status to other drugs, medicaments and biological substances
CPT/HCPCS: 99283

== ENCOUNTER 2024-05-21 23:49 | Emergency (ER) | payer OTHER ==
[2024-05-22] MEDS ORDERED: THIAMINE 200 MG/2 ML INJ ONE (00:55)
[2024-05-22] MEDS ORDERED: MULTIVITAMINS 10 ML VIAL (INJ) IV ONE (00:56)
[2024-05-22] MEDS ORDERED: FOLIC ACID 5 MG/ML VIAL ONE (00:57)
[2024-05-22] MEDS ORDERED: NA CHLORIDE 0.9% 1,000 ML ONE (00:57)
[2024-05-22 01:17] LABS: Absolute Lymphocytes (CBC) 1.5 K/uL (0.7-4.9); Absolute Monocytes 0.6 K/uL (0.1-1.3); Absolute Neutrophil 2.6 K/uL (1.8-8.0); Basophils % 0.7 % (0-1.3); Eosinophils % 0.9 % (0-4.4); Hematocrit 21.9 % (36.0-45.0); Hemoglobin 6.9 g/dL (12.0-15.0); Lymphocytes % 31.2 % (15.3-44.8); MCH 24.5 pg (27.0-35.0); MCHC 31.6 g/dL (32.0-36.0); MCV 77.6 fL (80-100); MPV 7.8 fL (7.6-11.3); Monocytes % 12.4 % (3.3-12.3); Neutrophils % 54.8 % (41.7-73.7); Nucleated Red Blood Cells % 0.2 % (0-0); Platelets 125 thou/uL (152-406); RBC Red Blood Cell Count 2.82 M/uL (3.86-4.86); Red Cell Distribution Width 18.8 % (12.1-15.2)
[2024-05-22 01:20] LABS: PTT, Activated Partial Thromb 32.7 SECONDS (24.3-36.9)
[2024-05-22 01:21] LABS: PT Prothrombin Time 13.1 SECONDS (9.4-12.5); Protime INR 1.2
[2024-05-22 01:38] LABS: Albumin 2.7 g/dL (3.4-5.0); Albumin/Globulin Ratio 0.7 (1.1-1.8); Bilirubin Direct 0.3 mg/dL (0-0.2); Bilirubin Indirect, Calculated 0.2 mg/dL (0.2-0.8); Bilirubin Total 0.5 mg/dL (0.2-1.0); Globulin 4.1 g/dL (2.3-3.5); Magnesium 2.1 mg/dL (1.6-2.4); Protein, Total 6.8 g/dL (6.4-8.2); Troponin High Sensitivity 9.8 pg/mL (<58.9)
[2024-05-22] MEDS ORDERED: NA CHLORIDE 0.9% 100 ML ONE (03:59)
--- NOTE | 2024-05-22 05:38 | EDPHYS ---
Physician Documentation [facility] Name: Leonila Chaudhry Age: 64 yrs Sex: Female : 1960 Arrival Date: 05/21/2024 Time: 23:49 Bed 19 Private MD: ED Physician Steffen Dale HPI: 05/21 23:54 This 64 yrs old Female presents to ER via Unassigned with complaints of left sp4 arm weakness . 05/22 05:17 64-year-old female presents with worsening generalized weakness. Initially patient sp4 complained of left arm weakness. Stroke alert was announced.. 05:31 Patient reports associated black his stools. History of bipolar disorder, liver sp4 cirrhosis, hepatitis C, GERD, recent incarceration. Last hemoglobin 9.8. Last admission 10/05/2023 for sepsis and pneumonia. Home medications include amlodipine, furosemide, metoprolol, olanzapine, metoprolol, ciprofloxacin.. Historical: - Allergies: 05/21 23:56 LITHIUM DERIVITIVES; jb4 - Home Meds: 23:56 Amlodipine [Active]; lisinopril Oral [Active]; Metoprolol Tartrate Oral [Active]; jb4 olanzapine Oral [Active]; Omeprazole Oral [Active]; - PMHx: 23:56 cirrhosis of liver; GERD; Hepatitis C; Bipolar disorder; Hypertensive disorder; jb4 - PSHx: 23:56 section; jb4 - Immunization history:: Adult Immunizations up to date. - Infectious Disease History:: Denies. - Social history:: Smoking status: Patient reports the use of cigarette tobacco products, smokes one-half pack cigarettes per day, Patient uses alcohol, on a daily basis. - Family history:: not pertinent. ROS: 05/22 05:17 Constitutional: Negative for fever, chills, and weight loss, positive for generalized sp4 weakness and bloody stools All other systems are negative, Exam: 05:17 Constitutional: This is a well developed, well nourished patient who is awake, alert, sp4 and in no acute distress. Positive generalized pallor Head/Face: Normocephalic, atraumatic. Eyes: Pupils equal round and reactive to light, extra-ocular motions intact. Lids and lashes normal. Conjunctiva and sclera are not injected. Cornea within normal limits. Periorbital areas with no swelling, redness, or edema. ENT: Nares patent. No nasal discharge, no septal abnormalities noted. Tympanic membranes are normal and external auditory canals are clear. Oropharynx with no redness, swelling, or masses, exudates, or evidence of obstruction, uvula midline. Mucous membranes moist. Neck: Trachea midline, no thyromegaly or masses palpated, and no cervical lymphadenopathy. Supple, full range of motion without nuchal rigidity, or vertebral point tenderness. Chest/axilla: Normal chest wall appearance and motion. Nontender with no deformity. No lesions are appreciated. Cardiovascular: Regular rate and rhythm with a normal S1 and S2. No gallops, murmurs, or rubs. Normal PMI, no JVD. No pulse deficits. Respiratory: Lungs have equal breath sounds bilaterally, clear to auscultation and percussion. No rales, rhonchi or wheezes noted. No increased work of breathing, no retractions or nasal flaring. Abdomen/GI: Soft, with normal bowel sounds. No distension or tympany. No guarding or rebound. No evidence of tenderness throughout. Digital rectal exam reveals dark stool but no shaina melena no bright red blood, no dark red blood. Back: No spinal tenderness. No costovertebral tenderness. Skin: Warm, dry with normal turgor. Normal color with no rashes, no lesions, and no evidence of cellulitis. MS/ Extremity: Pulses equal, no cyanosis. Neurovascular intact. Full, normal range of motion. Neuro: Awake and alert, GCS 15, oriented to person, place, time, and situation. Cranial nerves II-XII grossly intact. Motor strength 5/5 in all extremities. Sensory grossly intact. Psych: Awake, alert, with orientation to person, place and time. Behavior, mood, and affect are within normal limits 05:17 ECG was reviewed by the Attending Physician. EKG at 0012 normal sinus rhythm at a rate of 88, normal EKG Vital Signs: 05/21 23:53 BP 130 / 76; Pulse 90; Resp 16; Temp 98.3(O); Pulse Ox 100% ; Weight 77.11 kg (R); jb4 Height 5 ft. 4 in. (R); 05/22 01:00 BP 135 / 80; Pulse 90; Resp 16; Pulse Ox 100% on R/A; jb4 02:00 BP 123 / 77; Pulse 83; Resp 16; Pulse Ox 98% on R/A; jb4 03:00 BP 138 / 85; Pulse 84; Resp 16; Pulse Ox 99% on R/A; jb4 04:00 BP 135 / 91; Pulse 79; Resp 16; Pulse Ox 100% on R/A; jb4 06:45 jb4 07:35 BP 150 / 91; Pulse 83; Resp 18; Temp 97.2(O); Pulse Ox 95% ; mb9 09:09 BP 143 / 78; Pulse 83; Resp 18; Pulse Ox 95% on R/A; mb9 05/21 23:53 Body Mass Index 29.18 (77.11 kg, 162.56 cm) jb4 06:45 see transfusion sheet jb4 07:35 baseline for 2nd unit of RBCs mb9 NIH Stroke Scale Scores: 05:31 NIHSS Score: 0 sp4 [place] Coma Score: 05:34 Eye Response: spontaneous(4). Motor Response: obeys commands(6). Verbal Response: sp4 oriented(5). Total: 15. MDM: 05/21 23:55 Patient medically screened. sp4 05/22 03:05 Data reviewed: vital signs, nurses notes, EMS record, lab test result(s), EKG, sp4 radiologic studies, CT scan. ED course: CT - IMPRESSION: 1. No acute intracranial abnormality. 2. The aortic arch and origins of the supraaortic arteries were not included on the provided images. Allowing for this, no occlusion, high-grade stenosis, or acute abnormality of the cervical or central intracranial arteries. 3. 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 Electronically signed by: Koko Alvarado MD 05/22/2024 03:00 AM. ED course: IMPRESSION: 1. No acute intracranial abnormality. 2. The aortic arch and origins of the supraaortic arteries were not included on the provided images. Allowing for this, no occlusion, high-grade stenosis, or acute abnormality of the cervical or central intracranial arteries. 3. 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 ED course: EXAM DESCRIPTION: Chest Single View CLINICAL HISTORY: stroke allert COMPARISON: None TECHNIQUE: Single AP view of the chest. FINDINGS: Asymmetric elevation of the left hemidiaphragm. Cardiac silhouette is normal in size. No pneumothorax. No large pleural effusion. No focal consolidation. Minimal reticular opacities in the left lower lobe, likely scarring/atelectasis. No acute bony finding. IMPRESSION: 1. No acute cardiopulmonary findings. 2. Minimal reticular opacities in the left lower lobe, likely scarring/atelectasis. 05:21 Differential Diagnosis altered mental status, sepsis, flu, CVA, GI bleeding . sp4 05:34 Consideration of Admission/Observation Escalation of care including sp4 admission/observation considered. ED course: Patient states that she has been having black to bloody stools since her discharge from long-term. Patient warrants 2 units PRBC transfusion also transfer for GI bleed with symptomatic anemia.. 05:36 ED course: Patient warrants transfer for GI bleed with symptomatic anemia. Will start sp4 PPI infusion. 05/21 23:55 Order name: Basic Metabolic Panel; Complete Time: 02:59 sp4 05/21 23:55 Order name: CBC with Diff; Complete Time: 02:59 sp4 05/21 23:55 Order name: Hepatic Function; Complete Time: 02:59 sp4 05/21 23:55 Order name: High Sensitivity Troponin; Complete Time: 02:59 sp4 05/21 23:55 Order name: Magnesium; Complete Time: 02:59 sp4 05/21 23:55 Order name: Protime (+inr); Complete Time: 01:24 sp4 05/21 23:55 Order name: Ptt, Activated; Complete Time: 01:24 sp4 05/21 23:55 Order name: UDS sp4 05/21 23:55 Order name: Alcohol Level; Complete Time: 02:59 sp4 05/22 01:45 Order name: Glucose, Ancillary Testing; Complete Time: 02:59 EDIA 05/22 03:28 Order name: Type And Screen ss 05/22 03:56 Order name: Packed RBC Leukored EDIA 05/22 04:30 Order name: ABO/RH no charge; Complete Time: 04:52 EDIA 05/21 23:55 Order name: CT Neck Angio 4 05/21 23:55 Order name: Stroke CXR 1 View 4 05/22 00:44 Order name: Head Brain Wo Cont EDMS 05/22 00:45 Order name: Head angio EDMS 05/21 23:55 Order name: Accucheck; Complete Time: 02:36 sp4 05/21 23:55 Order name: Cardiac monitoring; Complete Time: 01:04 sp4 05/21 23:55 Order name: EKG - Nurse/Tech; Complete Time: 01:04 sp4 05/21 23:55 Order name: IV Saline Lock; Complete Time: 01:03 sp4 05/21 23:55 Order name: Labs collected and sent; Complete Time: 01:03 sp4 05/21 23:55 Order name: NPO; Complete Time: 01:04 sp4 05/21 23:55 Order name: O2 Per Protocol; Complete Time: 01:03 sp4 05/21 23:55 Order name: O2 Sat Monitoring; Complete Time: 01:03 sp4 05/21 23:55 Order name: Stroke Swallow Screen; Complete Time: 06:49 sp4 05/22 03:02 Order name: Transfuse; Complete Time: 05:55 sp4 EC:17 Rate is 88 beats/min. Rhythm is regular, Normal Sinus Rhythm. QRS [place] is Normal. IN sp4 interval is normal. QRS interval is normal. QT interval is normal. No Q waves. T waves are Normal. No ST changes noted. Clinical impression: Normal ECG. Interpreted by me. Reviewed by me. Administered Medications: 01:15 Drug: Banana Bag - (Multivitamin IV 1 amp, NS 0.9% IV 1000 ml, Thiamine IV 100 mg, jb4 foLIC Acid IVPB 1 mg) IV at calculated rate once Route: IV; Rate: calculated rate; Site: right forearm; 04:22 Follow up: Response: No adverse reaction; IV Status: Completed infusion; IV Intake: jb4 1000ml 06:36 Drug: Octreotide Infusion (50 mcg/hr) - (Octreotide IV 500 mcg, NS 0.9% IV 500 ml) IV jb4 at 50 ml/hr continuous Route: IV; Rate: 50 ml/hr; Site: left forearm; 06:36 Drug: Pantoprazole IV 8 mg/hr IV at 25 ml/hr continuous; (Standard dilution is 80 mg in jb4 250 mL NS) Route: IV; Rate: 25 ml/hr; Site: left forearm; 06:36 Drug: Pantoprazole IVP 80 mg IVP once Route: IVP; Site: left forearm; jb4 Disposition Summary: 05/22/24 05:37 Transfer Ordered Notes: Transfer Location: [facility] sp4 Reason: Higher level of care sp4 Condition: Stable sp4 Problem: new sp4 Symptoms: have improved sp4 Accepting Physician: Attending (05/22/24 09:10) greta Diagnosis - GI Bleed/ Gastrointestinal hemorrhage, unspecified sp4 - Symptomatic anemia, generalized weakness sp4 Forms: - Medication Reconciliation Form sp4 - SBAR form sp4 Critical care time excluding procedures: 05:37 Critical care time: Bedside Care: 36 minutes, Consultation: 12 minutes, Family sp4 Intervention: 12 minutes. Total time: 60 minutes NIH Stroke Scale - NIH Stroke Score Date: 05/22/2024 Time: 05:31 Total Score = 0 10. Dysarthria (speech clarity - read or repeat words) - 0(Normal) 11. Extinction and Inattention (visual/tactile/auditory/spatial/personal) - 0(No abnormality) 1a. Level of Consciousness (LOC) - 0(Alert) 1b. Level of Consciousness (LOC) (Month \T\ Age) - 0(Both) 1c. LOC Commands (Open \T\ Closes Eyes/Data Processing Clerk) - 0(Both) 2. Best Gaze (Lateral Gaze Paresis) - 0(Normal) 3. Visual Field Loss - 0(No visual loss) 4. Facial Palsy - 0(Normal) 5a. Left Arm: Motor (10-second hold) - 0(No drift) 5b. Right Arm: Motor (10-second hold) - 0(No drift) 6a. Left Leg: Motor (5-second hold - always test supine) - 0(No drift) 6b. Right Leg: Motor (5-second hold - always test supine) - 0(No drift) 7. Limb Ataxia (finger/nose \T\ heel/gonzalez - test with eyes open) - 0(Absent) 8. Sensory Loss (pinprick arms/legs/face) - 0(Normal) 9. Best Language: Aphasia (description/naming/reading) - 0(No aphasia) Initials: sp4 Signatures: Dispatcher [employer] EDLd Quinn RN RN jb4 Rand Ibanez RN RN mb9 Steffen Dale MD MD sp4 Corrections: (The following items were deleted from the chart) 05/21 23:56 23:56 BASIC METABOLIC PANEL+C.LAB.BRZ ordered. EDMS EDMS 23:56 23:56 CBC+H.LAB.BRZ ordered. EDMS EDMS 23:56 23:56 HEPATIC FUNCTION+C.LAB.BRZ ordered. EDMS EDMS 23:56 23:56 Troponin High Sensitivity+C.LAB.BRZ ordered. EDMS EDMS 23:56 23:56 MAGNESIUM+C.LAB.BRZ ordered. EDMS EDMS 23:56 23:56 PROTIME (+INR)+COAG.LAB.BRZ ordered. EDMS EDMS 23:56 23:56 PTT, ACTIVATED+COAG.LAB.BRZ ordered. EDMS EDMS 23:56 23:56 URINE DRUG SCREEN+UC.LAB.BRZ ordered. EDMS EDMS 23:56 23:56 ETHANOL+C.LAB.BRZ ordered. EDMS EDMS 05/22 00:44 05/21 23:56 CT-STROKE BRAIN W/O CONTRAST+CT.RAD.BRZ ordered. EDMS EDMS 07 03:28 03:28 TYPE AND SCREEN+BB.LAB.BRZ ordered. EDMS EDMS 03:56 03:02 PACKED RBC LEUKORED+BB.LAB.BRZ ordered. EDMS EDMS 03:56 03:04 ABO/RH typing ordered. EDMS EDMS 03:56 03:04 Antibody Screen ordered. EDMS EDMS 09:10 05:37 Attending MD mercado mb9
--- NOTE | 2024-05-22 05:38 | ER ---
Nurse's Notes [facility] Name: Leonila Chaudhry Age: 64 yrs Sex: Female : 1960 Arrival Date: 05/21/2024 Time: 23:49 Bed 19 Private MD: Diagnosis: GI Bleed/ Gastrointestinal hemorrhage, unspecified;Symptomatic anemia, generalized weakness Presentation: 05/21 23:53 Chief complaint: EMS states: Pt called EMS reporting left sided weakness that started jb4 at 12pm upon waking. Coronavirus screen: At this time, the client does not indicate any symptoms associated with coronavirus-19. Ebola Screen: No symptoms or risks identified at this time. Initial Sepsis Screen: Does the patient meet any 2 criteria? No. Patient's initial sepsis screen is negative. Does the patient have a suspected source of infection? No. Patient's initial sepsis screen is negative. Risk Assessment: Do you want to hurt yourself or someone else? Patient reports no desire to harm self or others. Onset of symptoms was May 21, 2024. Transition of care: patient was not received from another setting of care. 23:53 Method Of Arrival: Ambulatory jb4 23:53 Acuity: ADAM 3 jb4 Historical: - Allergies: 23:56 LITHIUM DERIVITIVES; jb4 - Home Meds: 23:56 Amlodipine [Active]; lisinopril Oral [Active]; Metoprolol Tartrate Oral [Active]; jb4 olanzapine Oral [Active]; Omeprazole Oral [Active]; - PMHx: 23:56 cirrhosis of liver; GERD; Hepatitis C; Bipolar disorder; Hypertensive disorder; jb4 - PSHx: 23:56 section; jb4 - Immunization history:: Adult Immunizations up to date. - Infectious Disease History:: Denies. - Social history:: Smoking status: Patient reports the use of cigarette tobacco products, smokes one-half pack cigarettes per day, Patient uses alcohol, on a daily basis. - Family history:: not pertinent. Screenin/03 09:10 [facility] ED Fall Risk Assessment (Adult) History of falling in the last 3 months, mb9 including since admission No falls in past 3 months (0 pts) Confusion or Disorientation No (0 pts) Intoxicated or Sedated No (0 pts) Impaired Gait No (0 pts) Mobility Assist Device Used No (0 pt) Altered Elimination No (0 pt) Score/Fall Risk Level 0 - 2 = Low Risk Oriented to surroundings, Maintained a safe environment, Educated pt \T\ family on fall prevention, incl call for assistance when getting out of bed. Abuse screen: Denies threats or abuse. Nutritional screening: No deficits noted. Tuberculosis screening: No symptoms or risk factors identified. Assessment: 00:00 General: Appears in no apparent distress. comfortable, Behavior is calm, cooperative, jb4 appropriate for age. Pain: Denies pain. Neuro: Level of Consciousness is awake, alert, obeys commands, Oriented to person, place, time, situation. Cardiovascular: Patient's skin is warm and dry. Respiratory: Airway is patent Respiratory effort is even, unlabored, Respiratory pattern is regular, symmetrical. GI: No signs and/or symptoms were reported involving the gastrointestinal system. : No signs and/or symptoms were reported regarding the genitourinary system. EENT: No signs and/or symptoms were reported regarding the EENT system. Derm: Skin is intact, Skin is pink, warm \T\ dry. Musculoskeletal: Circulation, motion, and sensation intact. Range of motion: intact in all extremities. 01:00 Reassessment: Patient appears in no apparent distress at this time. Patient and/or jb4 family updated on plan of care and expected duration. Pain level reassessed. Patient is alert, oriented x 3, equal unlabored respirations, skin warm/dry/pink. 02:00 Reassessment: Patient appears in no apparent distress at this time. Patient and/or jb4 family updated on plan of care and expected duration. Pain level reassessed. Patient is alert, oriented x 3, equal unlabored respirations, skin warm/dry/pink. 03:00 Reassessment: pt resting peacefully in bed with no s/s of pain or distress noted. jb4 04:00 Reassessment: Patient appears in no apparent distress at this time. No changes from jb4 previously documented assessment. Patient and/or family updated on plan of care and expected duration. Pain level reassessed. 07:54 General: Appears in no apparent distress. Behavior is calm, cooperative, appropriate mb9 for age. Pain: Denies pain. Neuro: [place] Agitation-Sedation Scale (RASS): 0 - Alert and Calm Level of Consciousness is awake, alert, obeys commands, Oriented to person, place, time, situation. Cardiovascular: Patient's skin is warm and dry. Respiratory: Airway is patent Respiratory effort is even, unlabored, Respiratory pattern is regular, symmetrical. GI: Abdomen is round non-distended, Bowel sounds present X 4 quads. : No signs and/or symptoms were reported regarding the genitourinary system. EENT: No signs and/or symptoms were reported regarding the EENT system. Derm: Skin is pink, warm \T\ dry. Musculoskeletal: Range of motion: intact in all extremities. 09:09 Reassessment: No changes from previously documented assessment. Patient and/or family mb9 updated on plan of care and expected duration. Pain level reassessed. Patient is alert, oriented x 3, equal unlabored respirations, skin warm/dry/pink. Vital Signs: 05/21 23:53 BP 130 / 76; Pulse 90; Resp 16; Temp 98.3(O); Pulse Ox 100% ; Weight 77.11 kg (R); jb4 Height 5 ft. 4 in. (R); 05/22 01:00 BP 135 / 80; Pulse 90; Resp 16; Pulse Ox 100% on R/A; jb4 02:00 BP 123 / 77; Pulse 83; Resp 16; Pulse Ox 98% on R/A; jb4 03:00 BP 138 / 85; Pulse 84; Resp 16; Pulse Ox 99% on R/A; jb4 04:00 BP 135 / 91; Pulse 79; Resp 16; Pulse Ox 100% on R/A; jb4 06:45 jb4 07:35 BP 150 / 91; Pulse 83; Resp 18; Temp 97.2(O); Pulse Ox 95% ; mb9 09:09 BP 143 / 78; Pulse 83; Resp 18; Pulse Ox 95% on R/A; mb9 05/21 23:53 Body Mass Index 29.18 (77.11 kg, 162.56 cm) jb4 06:45 see transfusion sheet jb4 07:35 baseline for 2nd unit of RBCs mb9 [place] Coma Score: 05:34 Eye Response: spontaneous(4). Motor Response: obeys commands(6). Verbal Response: sp4 oriented(5). Total: 15. NIH Stroke Scale Scores: 05:31 NIHSS Score: 0 sp4 ED Course: 07/02 23:53 Patient arrived in ED. jb4 23:54 Steffen Dale MD is Attending Physician. sp4 23:55 Triage completed. jb4 23:56 Arm band placed on right wrist. jb4 07 00:20 EKG done, by ED staff, reviewed by Steffen Dale MD. oe 00:35 Ld Dennis, RN is Primary Nurse. jb4 00:39 Stroke CXR 1 View In Process Unspecified. EDMS 02:24 CT Neck Angio In Process Unspecified. EDMS 02:24 Head Brain Wo Cont In Process Unspecified. EDMS 02:24 Head angio In Process Unspecified. EDMS 05:18 initiated transfer with Sandra \T\ [facility]. kmf 06:30 Inserted saline lock: 20 gauge in left forearm, using aseptic technique. ,using aseptic jb4 technique. double lumen catheter. 06:31 pt accepted to [facility] bed 2431. number for nurse to nurse report [phone]. Accepting [facility] \T\ 0631. Admin approval given by Joellen Santiago \T\ 0631. [facility] to transfer pt. 08:02 Assist provider with bone marrow aspiration. Patient transferred, IV remains in place. mb9 08:19 spoke with myles at [facility] given an eta of 30 minutes. bc6 Administered Medications: 01:15 Drug: Banana Bag - (Multivitamin IV 1 amp, NS 0.9% IV 1000 ml, Thiamine IV 100 mg, jb4 foLIC Acid IVPB 1 mg) IV at calculated rate once Route: IV; Rate: calculated rate; Site: right forearm; 04:22 Follow up: Response: No adverse reaction; IV Status: Completed infusion; IV Intake: jb4 1000ml 06:36 Drug: Octreotide Infusion (50 mcg/hr) - (Octreotide IV 500 mcg, NS 0.9% IV 500 ml) IV jb4 at 50 ml/hr continuous Route: IV; Rate: 50 ml/hr; Site: left forearm; 06:36 Drug: Pantoprazole IV 8 mg/hr IV at 25 ml/hr continuous; (Standard dilution is 80 mg in jb4 250 mL NS) Route: IV; Rate: 25 ml/hr; Site: left forearm; 06:36 Drug: Pantoprazole IVP 80 mg IVP once Route: IVP; Site: left forearm; jb4 Intake: 04:22 IV: 1000ml; Total: 1000ml. jb4 Outcome: 05:37 ER care complete, transfer ordered by . sp4 08:02 Transferred by ground EMS to [facility], Transfer form completed. mb9 X-rays sent w/ patient. 08:02 Condition: stable 08:02 Instructed on the need for admit, report called to transferring nurse MALI Chanel 09:10 Patient left the ED. mb9 NIH Stroke Scale - NIH Stroke Score Date: 05/22/2024 Time: 05:31 Total Score = 0 10. Dysarthria (speech clarity - read or repeat words) - 0(Normal) 11. Extinction and Inattention (visual/tactile/auditory/spatial/personal) - 0(No abnormality) 1a. Level of Consciousness (LOC) - 0(Alert) 1b. Level of Consciousness (LOC) (Month \T\ Age) - 0(Both) 1c. LOC Commands (Open \T\ Closes Eyes/Educational Psychology Teacher) - 0(Both) 2. Best Gaze (Lateral Gaze Paresis) - 0(Normal) 3. Visual Field Loss - 0(No visual loss) 4. Facial Palsy - 0(Normal) 5a. Left Arm: Motor (10-second hold) - 0(No drift) 5b. Right Arm: Motor (10-second hold) - 0(No drift) 6a. Left Leg: Motor (5-second hold - always test supine) - 0(No drift) 6b. Right Leg: Motor (5-second hold - always test supine) - 0(No drift) 7. Limb Ataxia (finger/nose \T\ heel/gonzalez - test with eyes open) - 0(Absent) 8. Sensory Loss (pinprick arms/legs/face) - 0(Normal) 9. Best Language: Aphasia (description/naming/reading) - 0(No aphasia) Initials: sp4 Signatures: Dispatcher [employer] Ld Salazar, RN RN jb4 Edvin Laurent Mary Beth RN RN mb9 Ana Thomas Sergey, MD MD sp4 [facility]
[2024-05-22] MEDS ORDERED: PANTOPRAZOLE 40 MG INJ ONE (06:21)
[2024-05-22] MEDS ORDERED: OCTREOTIDE ACETATE 500 MCG/ML ONE (06:22)
[2024-05-22] MEDS ORDERED: NA CHLORIDE 0.9% 500 ML ONE (06:22)
[2024-05-22] MEDS ORDERED: NA CHLORIDE 0.9% 250 ML ONE (06:22)
[2024-05-22 09:36] VITALS: TEMP 97.2; O2SAT 95
[2024-05-22 09:37] VITALS: BP 143/78
--- NOTE | 2024-05-22 11:35 | RAD REPORT ---
EXAM DESCRIPTION: CT - Head angio - 05/22/2024 6:45 am ADDENDUM #1 ADDENDUM: Dr. Alvarado discussed these findings with Steffen Dale MD via telephone at [facility] 0406 hours EST on 05/22/2024. Electronically signed by: Koko Alvarado MD 05/22/2024 05:18 AM CDT RP End of Addendum EXAM DESCRIPTION: CT Angiography Head and Neck Without and With Intravenous Contrast CLINICAL HISTORY: The patient is 64 years old and is Female; STROKE ALERT Bed Name: 19 TECHNIQUE: [place] [facility] [place]/head and neck CT angiography protocol performed without and with intrave nous contrast. Sagittal and coronal reformatted images were created and reviewed. This CT exam wa s performed using one or more of the following dose reduction techniques: automated exposure contro l, adjustment of the mA and/or kV according to patient size, and/or use of iterative reconstruction t echnique. MIP reconstructed images were created and reviewed. COMPARISON: 12/27/2022 CT head without contrast FINDINGS: HEAD: RIGHT ANTERIOR CEREBRAL ARTERY: Unremarkable No occlusion or significant stenosis. Anterior com municating artery is present. No aneurysm. RIGHT MIDDLE CEREBRAL ARTERY: Unremarkable No occlusion or significant stenosis. No aneurysm. RIGHT POSTERIOR CEREBRAL ARTERY: origin of the right RAILROAD ACCOUNTANT. No occlusion or significant stenosis. No aneurysm. RIGHT INTRACRANIAL INTERNAL CAROTID ARTERY: Unremarkable No significant stenosis. No dissection or occlusion. RIGHT INTRACRANIAL VERTEBRAL ARTERY: Markedly diminutive appearance of the right vertebral artery V 4 segment. No significant stenosis. No dissection or occlusion. LEFT ANTERIOR CEREBRAL ARTERY: Unremarkable No occlusion or significant stenosis. No aneurysm. LEFT MIDDLE CEREBRAL ARTERY: Unremarkable No occlusion or significant stenosis. No aneurysm. LEFT POSTERIOR CEREBRAL ARTERY: origin of the left RAILROAD ACCOUNTANT. No occlusion or significant stenosis. No aneurysm. LEFT INTRACRANIAL INTERNAL CAROTID ARTERY: Unremarkable No significant stenosis. No dissection or occlusion. LEFT INTRACRANIAL VERTEBRAL ARTERY: Unremarkable No significant stenosis. No dissection or occl usion. BASILAR ARTERY: Markedly diminutive appearance of the distal basilar artery. No occlusion or significant stenosis. No aneurysm. OTHER VASCULATURE: See below. BRAIN AND EXTRA-AXIAL SPACES: No evidence of acute infarct. Posterior fossa structures are unrema rkable. Ventricles are appropriate for age. No hydrocephalus. Basal cisterns are patent. No extra-axial fluid collection. No intracranial hemorrhage. No midline shift. No transtentorial herniation. No focal jain-white matter differentiation abnormality. SINUSES: Unremarkable as visualized. Clear. MASTOID AIR CELLS: Unremarkable as visualized. Clear. ORBITS: Visualized globes, extraocular muscles, optic nerves and retrobulbar fat appear unremarkabl e. NECK: RIGHT COMMON CAROTID ARTERY: Unremarkable No significant stenosis. No dissection or occlusion. RIGHT EXTRACRANIAL INTERNAL CAROTID ARTERY: Unremarkable No significant stenosis. No dissection or occlusion. RIGHT EXTERNAL CAROTID ARTERY: Unremarkable No occlusion. RIGHT EXTRACRANIAL VERTEBRAL ARTERY: Unremarkable No significant stenosis. No dissection or occ lusion. LEFT COMMON CAROTID ARTERY: Unremarkable No significant stenosis. No dissection or occlusion. LEFT EXTRACRANIAL INTERNAL CAROTID ARTERY: Unremarkable No significant stenosis. No dissection or occlusion. LEFT EXTERNAL CAROTID ARTERY: Unremarkable No occlusion. LEFT EXTRACRANIAL VERTEBRAL ARTERY: Left vertebral artery dominance. No significant stenosis. No dissection or occlusion. AORTA: Note, the aortic arch and origins of the supraaortic arteries are not included in the provid ed images. LUNG APICES: Unremarkable as visualized. HEAD and NECK: BONES/JOINTS: Multilevel cervical spondylosis with multilevel mid to inferior anterior cervical ost eophytes. No discrete lytic or blastic abnormalities. No fracture of the calvarium or visualized facial bones. No high-grade cervical canal stenosis. SOFT TISSUES: Unremarkable No abnormal prevertebral soft tissue swelling. LYMPH NODES: No suspicious cervical lymphadenopathy. CAROTID STENOSIS REFERENCE USING NASCET CRITERIA: % ICA stenosis = (1 - narrowest ICA diameter/diameter of distal cervical ICA) x 100. Mild - <50% stenosis. Moderate - 50-69% stenosis. Severe - 70-94% stenosis. Near occlusion - 95-99% stenosis. Occluded - 100% stenosis. IMPRESSION: 1. No acute intracranial abnormality. 2. The aortic arch and origins of the supraaortic arteries were not included on the provided images . Allowing for this, no occlusion, high-grade stenosis, or acute abnormality of the cervical or centr al intracranial arteries. 3. 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 Electronically signed by: Koko Alvarado MD 05/22/2024 03:00 AM CDT RP Due to temporary technical issues with the PACS/Fluency reporting system, reports are being signed by the in house radiologist without review as a courtesy to ensure prompt reporting. The interpreting r adiologist is fully responsible for the content of the report.
--- NOTE | 2024-05-22 11:46 | RAD REPORT ---
EXAM DESCRIPTION: CT - Neck Angio - 05/22/2024 6:46 am ADDENDUM #1 Addendum: Dr. Alvarado discussed these findings with Steffen Dale MD via telephone at approximately 0406 ho [facility] EST on 05/22/2024. Electronically signed by: Koko Alvarado MD 05/22/2024 05:18 AM CDT RP End of Addendum EXAM DESCRIPTION: CT Angiography Head and Neck Without and With Intravenous Contrast CLINICAL HISTORY: The patient is 64 years old and is Female; STROKE ALERT Bed Name: 19 TECHNIQUE: [place]/head and neck CT angiography protocol performed without and with intrave nous contrast. Sagittal and coronal reformatted images were created and reviewed. This CT exam wa s performed using one or more of the following dose reduction techniques: automated exposure contro l, adjustment of the mA and/or kV according to patient size, and/or use of iterative reconstruction t echnique. MIP reconstructed images were created and reviewed. COMPARISON: 12/27/2022 CT head without contrast FINDINGS: HEAD: RIGHT ANTERIOR CEREBRAL ARTERY: Unremarkable No occlusion or significant stenosis. Anterior com municating artery is present. No aneurysm. RIGHT MIDDLE CEREBRAL ARTERY: Unremarkable No occlusion or significant stenosis. No aneurysm. RIGHT POSTERIOR CEREBRAL ARTERY: origin of the right SKATING CARHOP. No occlusion or significant stenosis. No aneurysm. RIGHT INTRACRANIAL INTERNAL CAROTID ARTERY: Unremarkable No significant stenosis. No dissection or occlusion. RIGHT INTRACRANIAL VERTEBRAL ARTERY: Markedly diminutive appearance of the right vertebral artery V 4 segment. No significant stenosis. No dissection or occlusion. LEFT ANTERIOR CEREBRAL ARTERY: Unremarkable No occlusion or significant stenosis. No aneurysm. LEFT MIDDLE CEREBRAL ARTERY: Unremarkable No occlusion or significant stenosis. No aneurysm. LEFT POSTERIOR CEREBRAL ARTERY: origin of the left SKATING CARHOP. No occlusion or significant stenosis. No aneurysm. LEFT INTRACRANIAL INTERNAL CAROTID ARTERY: Unremarkable No significant stenosis. No dissection or occlusion. LEFT INTRACRANIAL VERTEBRAL ARTERY: Unremarkable No significant stenosis. No dissection or occl usion. BASILAR ARTERY: Markedly diminutive appearance of the distal basilar artery. No occlusion or significant stenosis. No aneurysm. OTHER VASCULATURE: See below. BRAIN AND EXTRA-AXIAL SPACES: No evidence of acute infarct. Posterior fossa structures are unrema rkable. Ventricles are appropriate for age. No hydrocephalus. Basal cisterns are patent. No extra-axial fluid collection. No intracranial hemorrhage. No midline shift. No transtentorial herniation. No focal jain-white matter differentiation abnormality. SINUSES: Unremarkable as visualized. Clear. MASTOID AIR CELLS: Unremarkable as visualized. Clear. ORBITS: Visualized globes, extraocular muscles, optic nerves and retrobulbar fat appear unremarkabl e. NECK: RIGHT COMMON CAROTID ARTERY: Unremarkable No significant stenosis. No dissection or occlusion. RIGHT EXTRACRANIAL INTERNAL CAROTID ARTERY: Unremarkable No significant stenosis. No dissection or occlusion. RIGHT EXTERNAL CAROTID ARTERY: Unremarkable No occlusion. RIGHT EXTRACRANIAL VERTEBRAL ARTERY: Unremarkable No significant stenosis. No dissection or occ lusion. LEFT COMMON CAROTID ARTERY: Unremarkable No significant stenosis. No dissection or occlusion. LEFT EXTRACRANIAL INTERNAL CAROTID ARTERY: Unremarkable No significant stenosis. No dissection or occlusion. LEFT EXTERNAL CAROTID ARTERY: Unremarkable No occlusion. LEFT EXTRACRANIAL VERTEBRAL ARTERY: Left vertebral artery dominance. No significant stenosis. No dissection or occlusion. AORTA: Note, the aortic arch and origins of the supraaortic arteries are not included in the provid ed images. LUNG APICES: Unremarkable as visualized. HEAD and NECK: BONES/JOINTS: Multilevel cervical spondylosis with multilevel mid to inferior anterior cervical ost eophytes. No discrete lytic or blastic abnormalities. No fracture of the calvarium or visualized facial bones. No high-grade cervical canal stenosis. SOFT TISSUES: Unremarkable No abnormal prevertebral soft tissue swelling. LYMPH NODES: No suspicious cervical lymphadenopathy. CAROTID STENOSIS REFERENCE USING NASCET CRITERIA: % ICA stenosis = (1 - narrowest ICA diameter/diameter of distal cervical ICA) x 100. Mild - <50% stenosis. Moderate - 50-69% stenosis. Severe - 70-94% stenosis. Near occlusion - 95-99% stenosis. Occluded - 100% stenosis. IMPRESSION: 1. No acute intracranial abnormality. 2. The aortic arch and origins of the supraaortic arteries were not included on the provided images . Allowing for this, no occlusion, high-grade stenosis, or acute abnormality of the cervical or centr al intracranial arteries. 3. 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 Electronically signed by: Koko Alvarado MD 05/22/2024 03:00 AM CDT Due to temporary technical issues with the PACS/Fluency reporting system, reports are being signed by the in house radiologist without review as a courtesy to ensure prompt reporting. The interpreting r adiologist is fully responsible for the content of the report.
--- NOTE | 2024-05-22 11:49 | RAD REPORT ---
EXAM DESCRIPTION: CT - Head Brain Wo Cont - 05/22/2024 6:46 am ADDENDUM #1 Addendum: Dr. Alvarado discussed these findings with Steffen Dale MD via telephone at approximately 0406 ho urs EST on 05/22/2024. Electronically signed by: Koko Alvarado MD 05/22/2024 05:18 AM CDT RP End of Addendum EXAM DESCRIPTION: CT Angiography Head and Neck Without and With Intravenous Contrast CLINICAL HISTORY: The patient is 64 years old and is Female; STROKE ALERT Bed Name: 19 TECHNIQUE: [place]/head and neck CT angiography protocol performed without and with intrave nous contrast. Sagittal and coronal reformatted images were created and reviewed. This CT exam wa s performed using one or more of the following dose reduction techniques: automated exposure contro l, adjustment of the mA and/or kV according to patient size, and/or use of iterative reconstruction t echnique. MIP reconstructed images were created and reviewed. COMPARISON: 12/27/2022 CT head without contrast FINDINGS: HEAD: RIGHT ANTERIOR CEREBRAL ARTERY: Unremarkable No occlusion or significant stenosis. Anterior com municating artery is present. No aneurysm. RIGHT MIDDLE CEREBRAL ARTERY: Unremarkable No occlusion or significant stenosis. No aneurysm. RIGHT POSTERIOR CEREBRAL ARTERY: origin of the right BRANCH OPERATIONS MANAGER. No occlusion or significant stenosis. No aneurysm. RIGHT INTRACRANIAL INTERNAL CAROTID ARTERY: Unremarkable No significant stenosis. No dissection or occlusion. RIGHT INTRACRANIAL VERTEBRAL ARTERY: Markedly diminutive appearance of the right vertebral artery V 4 segment. No significant stenosis. No dissection or occlusion. LEFT ANTERIOR CEREBRAL ARTERY: Unremarkable No occlusion or significant stenosis. No aneurysm. LEFT MIDDLE CEREBRAL ARTERY: Unremarkable No occlusion or significant stenosis. No aneurysm. LEFT POSTERIOR CEREBRAL ARTERY: origin of the left BRANCH OPERATIONS MANAGER. No occlusion or significant stenosis. No aneurysm. LEFT INTRACRANIAL INTERNAL CAROTID ARTERY: Unremarkable No significant stenosis. No dissection or occlusion. LEFT INTRACRANIAL VERTEBRAL ARTERY: Unremarkable No significant stenosis. No dissection or occl usion. BASILAR ARTERY: Markedly diminutive appearance of the distal basilar artery. No occlusion or significant stenosis. No aneurysm. OTHER VASCULATURE: See below. BRAIN AND EXTRA-AXIAL SPACES: No evidence of acute infarct. Posterior fossa structures are unrema rkable. Ventricles are appropriate for age. No hydrocephalus. Basal cisterns are patent. No extra-axial fluid collection. No intracranial hemorrhage. No midline shift. No transtentorial herniation. No focal jain-white matter differentiation abnormality. SINUSES: Unremarkable as visualized. Clear. MASTOID AIR CELLS: Unremarkable as visualized. Clear. ORBITS: Visualized globes, extraocular muscles, optic nerves and retrobulbar fat appear unremarkabl e. NECK: RIGHT COMMON CAROTID ARTERY: Unremarkable No significant stenosis. No dissection or occlusion. RIGHT EXTRACRANIAL INTERNAL CAROTID ARTERY: Unremarkable No significant stenosis. No dissection or occlusion. RIGHT EXTERNAL CAROTID ARTERY: Unremarkable No occlusion. RIGHT EXTRACRANIAL VERTEBRAL ARTERY: Unremarkable No significant stenosis. No dissection or occ lusion. LEFT COMMON CAROTID ARTERY: Unremarkable No significant stenosis. No dissection or occlusion. LEFT EXTRACRANIAL INTERNAL CAROTID ARTERY: Unremarkable No significant stenosis. No dissection or occlusion. LEFT EXTERNAL CAROTID ARTERY: Unremarkable No occlusion. LEFT EXTRACRANIAL VERTEBRAL ARTERY: Left vertebral artery dominance. No significant stenosis. No dissection or occlusion. AORTA: Note, the aortic arch and origins of the supraaortic arteries are not included in the provid ed images. LUNG APICES: Unremarkable as visualized. HEAD and NECK: BONES/JOINTS: Multilevel cervical spondylosis with multilevel mid to inferior anterior cervical ost eophytes. No discrete lytic or blastic abnormalities. No fracture of the calvarium or visualized facial bones. No high-grade cervical canal stenosis. SOFT TISSUES: Unremarkable No abnormal prevertebral soft tissue swelling. LYMPH NODES: No suspicious cervical lymphadenopathy. CAROTID STENOSIS REFERENCE USING NASCET CRITERIA: % ICA stenosis = (1 - narrowest ICA diameter/diameter of distal cervical ICA) x 100. Mild - <50% stenosis. Moderate - 50-69% stenosis. Severe - 70-94% stenosis. Near occlusion - 95-99% stenosis. Occluded - 100% stenosis. IMPRESSION: 1. No acute intracranial abnormality. 2. The aortic arch and origins of the supraaortic arteries were not included on the provided images . Allowing for this, no occlusion, high-grade stenosis, or acute abnormality of the cervical or centr al intracranial arteries. 3. 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 Electronically signed by: Koko Alvarado MD 05/22/2024 03:00 AM CDT RP Due to temporary technical issues with the PACS/Fluency reporting system, reports are being signed by the in house radiologist without review as a courtesy to ensure prompt reporting. The interpreting r adiologist is fully responsible for the content of the report.
--- NOTE | 2024-05-22 12:19 | RAD REPORT ---
EXAM DESCRIPTION: RAD - Chest Single View - 05/22/2024 12:37 am CLINICAL HISTORY: Stroke allert COMPARISON: None TECHNIQUE: Single AP view of the chest. FINDINGS: Asymmetric elevation of the left hemidiaphragm. Cardiac silhouette is normal in size. No pneumothorax. No large pleural effusion. No focal consolidation. Minimal reticular opacities in the left lower lobe, likely scarring/atelectasis. No acute bony finding. IMPRESSION: 1. No acute cardiopulmonary findings. 2. Minimal reticular opacities in the left lower lobe, likely scarring/atelectasis. Electronically signed by: Lucrecia Guaman MD 05/22/2024 01:01 AM CDT RP Z9 Due to temporary technical issues with the PACS/Fluency reporting system, reports are being signed by the in house radiologist without review as a courtesy to ensure prompt reporting. The interpreting r adiologist is fully responsible for the content of the report.
== END 2024-05-22 09:10 | disposition short-term general hospital (02) ==
LOC: ER 23:49
PROC: 30233N1 Transfusion of Nonautologous Red Blood Cells into Peripheral Vein, Percutaneous Approach (ICD-10-PCS; principal; 2024-05-21)
DX: D64.9 Anemia, unspecified (principal); R53.1 Weakness; I10 Essential (primary) hypertension; K74.60 Unspecified cirrhosis of liver; F17.210 Nicotine dependence, cigarettes, uncomplicated; Z88.8 Allergy status to other drugs, medicaments and biological substances
CPT/HCPCS: 36415; 70450; 70496; 70498; 71045; 80048; 80076; 82077; 82947; 83735; 84484; 85025; 85610; 85730; 86850; 86900; 86901; 86920; 93005; C9113; J2354; J3411; J7030; J7040; J7050; P9016; Q9967

== ENCOUNTER 2024-06-18 18:26 | Emergency (ER) | payer OTHER ==
[2024-06-18] MEDS ORDERED: KETOROLAC 30 MG/ML INJ ONE (20:34)
--- NOTE | 2024-06-18 21:10 | RAD REPORT ---
EXAM DESCRIPTION: RAD - Forearm Left - 06/18/2024 7:23 pm CLINICAL HISTORY: PAIN COMPARISON: No comparisons TECHNIQUE: Left forearm, 2 views. FINDINGS: Buckled mildly comminuted fracture of the distal radial metaphysis, with some buckling christopher ng the posterior cortex. There is no dislocation or periosteal reaction noted. Mild diffuse soft tissue swelling about the wrist. IMPRESSION: Buckled distal radius fracture as above.
--- NOTE | 2024-06-18 21:23 | RAD REPORT ---
EXAM DESCRIPTION: RAD - Knee Right 2 View - 06/18/2024 7:23 pm CLINICAL HISTORY: PAIN COMPARISON: No comparisons TECHNIQUE: Right knee, 3 views. FINDINGS: Osseous irregularity and lucency along the posterior margin of the tibial articular surfac e. No dislocation or periosteal reaction. Triangular radiodensity, which appears just lateral to the lateral femoral condyle on the AP view, and projects more superiorly at the level of the distal fem oral shaft on the lateral view. Moderate effusion seen. No joint space narrowing. No soft tissue abno rmality. IMPRESSION: Questionable osseous irregularity and lucency along the posterior tibia articular surfac e margin, raises concern for an occult fracture. Triangular radiodensity with variation in positioning between the views as above, may represent an ex tracorporeal radiodensity versus a small loose body. Please correlate clinically.
--- NOTE | 2024-06-18 21:25 | ER ---
Nurse's Notes [facility] Name: Leonila Chaudhry Age: 64 yrs Sex: Female : 1960 Arrival Date: 06/18/2024 Time: 18:26 Bed 10 Private MD: Diagnosis: Buckle fracture distal radius - left;Contusion of right knee Presentation: 06/18 18:34 Chief complaint: Patient states: she got tangled up in the dog leash and fell onto her ap3 right knee and left wrist. patient complains of pain to her left arm and right knee. patient attempted to ice the locations, however she reports the ice made the pain worse. Coronavirus screen: At this time, the client does not indicate any symptoms associated with coronavirus-19. Ebola Screen: No symptoms or risks identified at this time. Initial Sepsis Screen: Does the patient meet any 2 criteria? No. Patient's initial sepsis screen is negative. Does the patient have a suspected source of infection? No. Patient's initial sepsis screen is negative. Risk Assessment: Do you want to hurt yourself or someone else? Patient reports no desire to harm self or others. Onset of symptoms was June 18, 2024. 18:34 Method Of Arrival: EMS: [facility] ap3 18:34 Acuity: ADAM 4 ap3 Triage Assessment: 18:37 General: Appears in no apparent distress. Behavior is calm, cooperative, appropriate ap3 for age. Pain: Complains of pain in left arm and right knee Pain currently is 10 out of 10 on a pain scale. Pain began suddenly. Neuro: Level of Consciousness is awake, alert, obeys commands, Oriented to person, place, time, situation, Appropriate for age. Cardiovascular: Patient's skin is warm and dry. Respiratory: Airway is patent Respiratory effort is even, unlabored, Respiratory pattern is regular, symmetrical. Musculoskeletal: Swelling present in left arm and right knee. Historical: - Allergies: 18:37 LITHIUM DERIVITIVES; ap3 - PMHx: 18:37 Bipolar disorder; Bipolar disorder; cirrhosis of liver; GERD; Hepatitis C; Hypertensive ap3 disorder; - PSHx: 18:37 section; ap3 - Immunization history:: Client reports receiving the 2nd dose of the Covid vaccine, Last tetanus immunization: unknown. - Infectious Disease History:: Denies. - Social history:: Smoking status: Patient reports the use of cigarette tobacco products, smokes one-half pack cigarettes per day. Screenin:38 Abuse screen: Denies threats or abuse. Nutritional screening: No deficits noted. ap3 Tuberculosis screening: No symptoms or risk factors identified. 22:19 [facility] ED Fall Risk Assessment (Adult) History of falling in the last 3 months, jb4 including since admission No falls in past 3 months (0 pts) Confusion or Disorientation No (0 pts) Intoxicated or Sedated No (0 pts) Impaired Gait No (0 pts) Mobility Assist Device Used No (0 pt) Altered Elimination No (0 pt) Score/Fall Risk Level 0 - 2 = Low Risk Oriented to surroundings, Maintained a safe environment. Assessment: 20:00 General: Appears in no apparent distress. comfortable, Behavior is calm, cooperative, jb4 appropriate for age. Pain: Complains of pain in left arm Pain does not radiate. Pain currently is 6 out of 10 on a pain scale. Neuro: Level of Consciousness is awake, alert, obeys commands, Oriented to person, place, time, situation. Cardiovascular: Patient's skin is warm and dry. Respiratory: Airway is patent Respiratory effort is even, unlabored, Respiratory pattern is regular, symmetrical. GI: No signs and/or symptoms were reported involving the gastrointestinal system. : No signs and/or symptoms were reported regarding the genitourinary system. EENT: No signs and/or symptoms were reported regarding the EENT system. Derm: Skin is intact, Skin is pink, warm \T\ dry. Musculoskeletal: Circulation, motion, and sensation intact. Range of motion: intact in all extremities. 22:17 Reassessment: Patient appears in no apparent distress at this time. Patient and/or jb4 family updated on plan of care and expected duration. Pain level reassessed. Patient is alert, oriented x 3, equal unlabored respirations, skin warm/dry/pink. Patient states feeling better. Vital Signs: 18:34 BP 166 / 99; Pulse 84; Resp 17; Temp 98.4; Pulse Ox 100% ; Weight 72.57 kg; Pain 10/10; ap3 18:34 Pain Scale: Adult ap3 ED Course: 18:31 Patient arrived in ED. ra3 18:33 Maria C Contreras FNP-C is PHCP. kb 18:33 Eduardo Barrett MD is Attending Physician. kb 18:37 Triage completed. ap3 18:38 Arm band placed on right wrist. ap3 19:24 Forearm Left XRAY In Process Unspecified. EDMS 19:24 Knee Right 2 View XRAY In Process Unspecified. EDMS 20:38 Inserted saline lock: 18 gauge in right antecubital area, using aseptic technique. jb4 22:05 Orthoglass splint: Sugar tong splint applied on left arm. Sling applied to left arm. oe 22:19 Patient has correct armband on for positive identification. Bed in low position. Call jb4 light in reach. Side rails up X 1. Provided Education on: discharge instructions.. 22:19 No provider procedures requiring assistance completed. IV discontinued, intact, jb4 bleeding controlled, No redness/swelling at site. Pressure dressing applied. Administered Medications: 20:38 Drug: Ketorolac IVP 15 mg IVP once Route: IVP; Site: right antecubital; jb4 Outcome: 21:25 Discharge ordered by MD. kb 22:19 Discharged to home ambulatory, with family, jb4 22:19 Condition: stable 22:19 Discharge instructions given to patient, Instructed on discharge instructions, follow up and referral plans. Demonstrated understanding of instructions, follow-up care, 22:19 Patient left the ED. jb4 Signatures: Dispatcher [employer] EDMS Maria C Contreras, LIQUOR BRIDGE OPERATOR-C LIQUOR BRIDGE OPERATOR-CkLd Jeffries, RN RN jb4 Edvin Laurent Amanda, RN RN ap3 Isha Rodgers ra3 Corrections: (The following items were deleted from the chart) 22:06 22:04 Orthoglass splint: oe oe
--- NOTE | 2024-06-18 21:25 | EDPHYS ---
Physician Documentation [facility] Name: Leonila Chaudhry Age: 64 yrs Sex: Female : 1960 Arrival Date: 06/18/2024 Time: 18:26 Bed 10 Private MD: ED Physician Eduardo Barrett HPI: 06/18 18:42 This 64 yrs old Female presents to ER via EMS with complaints of Arm Injury. kb 18:42 Pt is a 64 year old female who presents for pain to left forearm after tripping over dog's leash and falling. Reports pain and bruising to right knee as well. Denies hitting head, loc, any other injuries. Historical: - Allergies: 18:37 LITHIUM DERIVITIVES; ap3 - PMHx: 18:37 Bipolar disorder; Bipolar disorder; cirrhosis of liver; GERD; Hepatitis C; Hypertensive ap3 disorder; - PSHx: 18:37 section; ap3 - Immunization history:: Client reports receiving the 2nd dose of the Covid vaccine, Last tetanus immunization: unknown. - Infectious Disease History:: Denies. - Social history:: Smoking status: Patient reports the use of cigarette tobacco products, smokes one-half pack cigarettes per day. ROS: 18:42 Constitutional: As per HPI kb Exam: 18:42 Constitutional: This is a well developed, well nourished patient who is awake, alert, kb and in no acute distress. Head/Face: Normocephalic, atraumatic. ENT: Moist Mucous membranes Cardiovascular: Regular rate Respiratory: Respirations even and unlabored. No increased work of breathing. Talking in full sentences Abdomen/GI: Soft, non-tender. No distention Skin: Warm, dry with normal turgor. Normal color. Neuro: Awake and alert, GCS 15, oriented to person, place, time, and situation. Moves all extremities. Normal gait. 18:42 Musculoskeletal/extremity: Extremities: grossly normal except: noted in the left forearm: deformity, pain, tenderness, noted in the right knee: contusion, pain, ROM: intact in all extremities, Circulation is intact in all extremities. Sensation intact. Weight bearing: able to fully bear weight, Vital Signs: 18:34 BP 166 / 99; Pulse 84; Resp 17; Temp 98.4; Pulse Ox 100% ; Weight 72.57 kg; Pain 10/10; ap3 18:34 Pain Scale: Adult ap3 MDM: 18:33 Patient medically screened. kb 18:42 Differential diagnosis: dislocation, closed fracture, contusion. Data reviewed: vital kb signs, nurses notes. Historians other than the Patient: EMS: [facility]. 21:24 Counseling: I had a detailed discussion with the patient and/or guardian regarding the kb historical points, exam findings, and any diagnostic results supporting the discharge/admit diagnosis, radiology results, the need for outpatient follow up, a orthopedic surgeon, to return to the emergency department if symptoms worsen or persist or if there are any questions or concerns that arise at home. 06/18 18:37 Order name: Forearm Left XRAY; Complete Time: 21:11 kb 06/18 18:37 Order name: Knee Right 2 View XRAY; Complete Time: 21:23 kb 06/18 21:11 Order name: Sugar Tong Forearm Splint; Complete Time: 22:17 kb Administered Medications: 20:38 Drug: Ketorolac IVP 15 mg IVP once Route: IVP; Site: right antecubital; jb4 Disposition: 06/19 21:23 Co-signature as Attending Physician, Eduardo Barrett MD I agree with the assessment and abelardo plan of care. Disposition Summary: 06/18/24 21:25 Discharge Ordered Notes: Location: Home kb Condition: Stable kb Diagnosis - Buckle fracture distal radius - left kb - Contusion of right knee kb Followup: kb - With: Emergency Department - When: As needed - Reason: Worsening of condition Followup: kb - With: Private Physician - When: 2 - 3 days - Reason: Recheck today's complaints, Continuance of care, Re-evaluation by your physician Discharge Instructions: - Discharge Summary Sheet kb - Radial Fracture kb - Contusion, [id number] kb Forms: - Medication Reconciliation Form kb - Antibiotic Education kb - Prescription Opioid Use kb - Patient Portal Instructions kb - Leadership Thank You Letter kb Signatures: Dispatcher [employer] EDMaria C Robert FNP-C DILLON-Eduardo Willson MD MD cha Bryson, James RN RN jb4 Ruby Black RN RN ap3 Corrections: (The following items were deleted from the chart) 06/18 18:38 18:38 Knee Right 2 View+RAD.RAD.BRZ ordered. EDMS EDMS
[2024-06-19 03:46] VITALS: BP 166/99; TEMP 98.4; O2SAT 100
== END 2024-06-18 22:19 | disposition home or self-care (01) ==
LOC: ER 18:26
PROC: 2W3DX1Z Immobilization of Left Lower Arm using Splint (ICD-10-PCS; principal; 2024-06-18)
DX: S52.522A Torus fracture of lower end of left radius, initial encounter for closed fracture (principal); S80.01XA Contusion of right knee, initial encounter
CPT/HCPCS: 96374; 99284

== ENCOUNTER 2024-07-14 14:20 | Emergency (ER) | payer OTHER ==
--- NOTE | 2024-07-14 18:57 | RAD REPORT ---
EXAM DESCRIPTION: RAD - Forearm Left - 07/14/2024 5:52 pm CLINICAL HISTORY: PAIN COMPARISON: Forearm Left dated 06/18/2024 TECHNIQUE: Left forearm, 2 views. FINDINGS: Unchanged alignment of distal radius metaphysis fracture with early osseous remodeling sug gesting early healing. There is no dislocation or periosteal reaction noted. No foreign body or other soft tissue abnormality. IMPRESSION: Early healing of distal radius fracture with unchanged alignment.
--- NOTE | 2024-07-14 19:05 | EDPHYS ---
Physician Documentation [facility] Name: Leonila Chaudhry Age: 64 yrs Sex: Female : 1960 Arrival Date: 07/14/2024 Time: 14:20 Bed DX1 Private MD: ED Physician Kayli Kiser HPI: 07/14 17:13 This 64 yrs old Female presents to ER via EMS with complaints of Split check. kb 17:13 Pt is a 64 year old female who presents for left arm pain. States she broke her arm on kb 06/18/24 and hasn't been able to follow up with ortho because she has been working on getting clearance from [facility]. States she has an appt with GI to get clearance on Monday. States she took the splint off and came to get another x-ray to see if she needs another one. . Historical: - Allergies: 14:36 LITHIUM DERIVITIVES; aa5 - PMHx: 14:36 Bipolar disorder; cirrhosis of liver; GERD; Hepatitis C; Hypertensive disorder; aa5 - PSHx: 14:36 section; aa5 ROS: 17:11 Constitutional: As per HPI kb Exam: 17:11 Constitutional: This is a well developed, well nourished patient who is awake, alert, kb and in no acute distress. Head/Face: Normocephalic, atraumatic. ENT: Moist Mucous membranes Cardiovascular: Regular rate Respiratory: Respirations even and unlabored. No increased work of breathing. Talking in full sentences Abdomen/GI: Soft, non-tender. No distention Skin: Warm, dry with normal turgor. Normal color. Neuro: Awake and alert, GCS 15, oriented to person, place, time, and situation. Moves all extremities. Normal gait. 17:11 Musculoskeletal/extremity: Extremities: grossly normal except: noted in the left forearm: pain, tenderness, ROM: intact in all extremities, Circulation is intact in all extremities. Sensation intact. Vital Signs: 14:35 BP 132 / 75; Pulse 87; Resp 18 S; Temp 97.5(O); Pulse Ox 97% on R/A; Weight 72.57 kg aa5 (R); Height 5 ft. 4 in. (R); 14:35 Body Mass Index 27.46 (72.57 kg, 162.56 cm) aa5 MDM: 16:15 Patient medically screened. cp 17:15 Differential diagnosis: sprain, fracture. Data reviewed: vital signs, nurses notes. kb 19:01 Counseling: I had a detailed discussion with the patient and/or guardian regarding the kb historical points, exam findings, and any diagnostic results supporting the discharge/admit diagnosis, radiology results, the need for outpatient follow up, a orthopedic surgeon, to return to the emergency department if symptoms worsen or persist or if there are any questions or concerns that arise at home. 19:03 ED course: I recommended new splint be placed until follow up with ortho. Pt prefers kb not to have another splint applied. States she will follow up with ortho soon. 07/14 17:12 Order name: Forearm Left XRAY; Complete Time: 18:58 kb Administered Medications: No medications were administered Disposition Summary: 07/14/24 19:05 Discharge Ordered Notes: Location: Home kb Condition: Stable kb Diagnosis - Healing buckle fracture kb - Healing buckle fracture left distal radius kb Followup: kb - With: Emergency Department - When: As needed - Reason: Worsening of condition Followup: kb - With: Private Physician - When: 2 - 3 days - Reason: Recheck today's complaints, Continuance of care, Re-evaluation by your physician Discharge Instructions: - Discharge Summary Sheet kb - Forearm Fracture Rehab kb Forms: - Medication Reconciliation Form kb - Antibiotic Education kb - Prescription Opioid Use kb - Patient Portal Instructions kb - Leadership Thank You Letter kb Prescriptions: - Ibuprofen 600 mg Oral Tablet - take 1 tablet ORAL route every 6 hours As needed take with food; 30 tablet; kb Refills: 0, Product Selection Permitted - Cyclobenzaprine 5 mg Oral tablet - take 1 tablet ORAL route 3 times per day As needed; 12 tablet; Refills: 0, kb Product Selection Permitted Signatures: Dispatcher [employer] Maria C Santana FNP-C FNP-Ckb Calderon, Audri, RN RN aa5 Eduardo Tatum PA PA cp
--- NOTE | 2024-07-14 19:05 | ER ---
Nurse's Notes [facility] Name: Leonila Chaudhry Age: 64 yrs Sex: Female : 1960 Arrival Date: 07/14/2024 Time: 14:20 Bed DX1 Private MD: Diagnosis: Healing buckle fracture;Healing buckle fracture left distal radius Presentation: 07/14 14:35 Chief complaint: EMS states: wants Orthoglass splint changed or checked to left arm, aa5 was unable to afford follow-up with orthopedic. Coronavirus screen: At this time, the client does not indicate any symptoms associated with coronavirus-19. Ebola Screen: No symptoms or risks identified at this time. Initial Sepsis Screen: Does the patient meet any 2 criteria? No. Patient's initial sepsis screen is negative. Does the patient have a suspected source of infection? No. Patient's initial sepsis screen is negative. Risk Assessment: Do you want to hurt yourself or someone else? Patient reports no desire to harm self or others. Onset of symptoms was July 14, 2024. 14:35 Method Of Arrival: EMS: [facility] aa5 14:35 Acuity: ADAM 4 aa5 Historical: - Allergies: 14:36 LITHIUM DERIVITIVES; aa5 - PMHx: 14:36 Bipolar disorder; cirrhosis of liver; GERD; Hepatitis C; Hypertensive disorder; aa5 - PSHx: 14:36 section; aa5 Screenin:24 [facility] ED Fall Risk Assessment (Adult). Abuse screen: Denies threats or abuse. vc1 Nutritional screening: No deficits noted. Tuberculosis screening: No symptoms or risk factors identified. Vital Signs: 14:35 BP 132 / 75; Pulse 87; Resp 18 S; Temp 97.5(O); Pulse Ox 97% on R/A; Weight 72.57 kg aa5 (R); Height 5 ft. 4 in. (R); 14:35 Body Mass Index 27.46 (72.57 kg, 162.56 cm) aa5 ED Course: 14:34 Patient arrived in ED. aa5 14:35 Arm band placed on. aa5 14:36 Triage completed. aa5 16:15 Eduardo Tatum PA is PHCP. cp 16:15 Kayli Kiser MD is Attending Physician. cp 17:10 Maria C Contreras F[facility]-C [facility] kb 17:10 Kayli Kiser MD is Attending Physician. kb 17:54 Forearm Left XRAY In Process Unspecified. EDMS Administered Medications: No medications were administered Outcome: 19:05 Discharge ordered by . kb 19:25 Discharged to home ambulatory, vc1 19:25 Condition: good 19:25 Discharge instructions given to patient, Instructed on discharge instructions, follow up and referral plans. medication usage, Demonstrated understanding of instructions, follow-up care, medications, discharged by provider 19:25 Patient left the ED. vc1 Signatures: Dispatcher [employer] EDMS Maria C Contreras FNP-C FNP-Ckb Calderon, Audri, RN RN aa5 Eduardo Tatum PA PA Laurie Dominguez, RN RN vc1
[2024-07-14 19:59] VITALS: BP 132/75; TEMP 97.5; O2SAT 97
== END 2024-07-14 19:25 | disposition home or self-care (01) ==
LOC: ER 14:20
DX: M79.632 Pain in left forearm (principal); S52.522 Torus fracture of lower end of left radius
CPT/HCPCS: 99283

== ENCOUNTER 2024-09-10 10:52 | Inpatient (IN) | payer OTHER ==
[2024-09-10 13:46] LABS: Absolute Basophils 0.1 K/uL (0-0.5); Absolute Lymphocytes (CBC) 1.5 K/uL (0.7-4.9); Absolute Monocytes 2.3 K/uL (0.1-1.3); Absolute Neutrophil 9.8 K/uL (1.8-8.0); Basophils % 0.4 % (0-1.3); Eosinophils % 0.1 % (0-4.4); Hematocrit 31.6 % (36.0-45.0); Hemoglobin 10.4 g/dL (12.0-15.0); Lymphocytes % 11.2 % (15.3-44.8); MCH 29.2 pg (27.0-35.0); MCHC 32.9 g/dL (32.0-36.0); MCV 88.7 fL (80-100); MPV 9.4 fL (7.6-11.3); Monocytes % 16.5 % (3.3-12.3); Neutrophils % 71.8 % (41.7-73.7); Nucleated Red Blood Cells % 0.1 % (0-0); Platelets 68 thou/uL (152-406); RBC Red Blood Cell Count 3.57 M/uL (3.86-4.86); Red Cell Distribution Width 16.7 % (12.1-15.2)
[2024-09-10 14:05] LABS: Albumin 2.4 g/dL (3.4-5.0); Albumin/Globulin Ratio 0.6 (1.1-1.8); Anion Gap 11.2 mEq/L (5.0-15.0); Bilirubin Total 2.2 mg/dL (0.2-1.0); Globulin 4.3 g/dL (2.3-3.5); Potassium 3.2 mEq/L (3.5-5.1); Protein, Total 6.7 g/dL (6.4-8.2)
[2024-09-10 15:33] LABS: Blood Morphology Comment NOTED (NOT SEEN); Platelet Estimate DECR; Poikilocytosis 1+; White Blood Cell Scan OK (OK)
[2024-09-10] MEDS ORDERED: POTASSIUM CL SA 10 MEQ TAB PO ONE (16:23)
[2024-09-10] MEDS ORDERED: VANCOMYCIN 1 GM/VIAL ONE (16:23)
--- NOTE | 2024-09-10 16:23 | RAD REPORT ---
Extremity Venous Uni Ltd CLINICAL INDICATION: Female, 64 years old.Pain;Swelling RIGHT TECHNIQUE: Complete duplex sonography of the lower extremity veins was performed of the affected limb . The examination included compression for vein patency, color Doppler imaging and flow augmentation in response to distal compression Of the distal external iliac, common femoral, femoral, popliteal, peroneal, tibial and great saphenous veins. [id number]. COMPARISON: No prior exams FINDINGS: Duplex sonography imaging demonstrates incompletely compressible posterior tibial vein consistent wit h thrombosis. The remaining interrogated veins are patent and compressible. IMPRESSION: Positive for deep venous thrombosis in the posterior tibial vein. The remaining interrogated veins in the right lower extremity are patent. Conveyed to Dr. Landers by Dr. Martinez at 1618 on 09/10/24
[2024-09-10] MEDS ORDERED: NA CHLORIDE 0.9% 250 ML ONE (16:24)
[2024-09-10] MEDS ORDERED: MORPHINE 4 MG/ML SYR ONE (16:24)
--- NOTE | 2024-09-10 16:51 | ER ---
Nurse's Notes [facility] Name: Leonila Chaudhry Age: 64 yrs Sex: Female : 1960 Arrival Date: 09/10/2024 Time: 10:52 Bed 5 Private MD: Diagnosis: Right lower extremity DVT;Cellulitis of right lower limb;Pain in left leg Presentation: 09/10 10:56 Chief complaint: EMS states: Pain all over. Pt stated "I got pain because of my hb colitis, I need to be hospitalized because I am being harassed by my doctor, he won't call me back." Confused in triage. Coronavirus screen: At this time, the client does not indicate any symptoms associated with coronavirus-19. Ebola Screen: No symptoms or risks identified at this time. Initial Sepsis Screen: Does the patient meet any 2 criteria? No. Patient's initial sepsis screen is negative. Does the patient have a suspected source of infection? No. Patient's initial sepsis screen is negative. Risk Assessment: Do you want to hurt yourself or someone else? Patient reports no desire to harm self or others. Onset of symptoms was September 10, 2024. 10:56 Method Of Arrival: EMS: [facility] 10:56 Acuity: ADAM 2 hb Triage Assessment: 19:10 General: Appears in no apparent distress. comfortable, Behavior is calm, cooperative, cp4 appropriate for age. 19:10 Pain: Complains of pain in "all over" Pain currently is 5 out of 10 on a pain scale. cp4 EENT: No signs and/or symptoms were reported regarding the EENT system. Neuro: Level of Consciousness is awake, alert, obeys commands, Oriented to person, place, time, situation. Cardiovascular: Patient's skin is warm and dry. Respiratory: Airway is patent Respiratory effort is even, unlabored. GI: No signs and/or symptoms were reported involving the gastrointestinal system. : No signs and/or symptoms were reported regarding the genitourinary system. Derm: No signs and/or symptoms reported regarding the dermatologic system. Musculoskeletal: No signs and/or symptoms reported regarding the musculoskeletal system. Historical: - Allergies: 11:00 LITHIUM DERIVITIVES; hb - PMHx: 11:00 Bipolar disorder; cirrhosis of liver; GERD; Hepatitis C; Hypertensive disorder; hb - PSHx: 11:00 section; hb - Immunization history:: Adult Immunizations up to date. - Infectious Disease History:: Denies. - Social history:: Smoking status: Patient denies any tobacco usage or history of. Screenin:00 Abuse screen: Denies threats or abuse. Denies injuries from another. Nutritional ko1 screening: No deficits noted. Tuberculosis screening: No symptoms or risk factors identified. 15:00 [facility] ED Fall Risk Assessment (Adult) History of falling in the last 3 months, ko1 including since admission No falls in past 3 months (0 pts) Confusion or Disorientation No (0 pts) Intoxicated or Sedated No (0 pts) Impaired Gait Yes (1 pt) Mobility Assist Device Used Yes (1 pt) Altered Elimination No (0 pt) Score/Fall Risk Level 0 - 2 = Low Risk Oriented to surroundings, Maintained a safe environment, Educated pt \\T\\ family on fall prevention, incl call for assistance when getting out of bed, Assessed \\T\\ reinforced patient's understanding of fall precautions, Provided non-skid footwear, Hourly rounding (assess needs \\T\\ fall precautionary measures) done. Assessment: 12:19 Reassessment: No changes from previously documented assessment. Patient and/or family ll1 updated on plan of care and expected duration. Pain level reassessed. 15:00 Pain: Complains of pain in all over. ko1 18:57 Reassessment: no lab results noted for PT/PTT earlier, called lab for results since lab ko1 tech came down and obtained labs. No specimen in lab, laboratory technology teacher will call back with clarification. 19:00 Reassessment: No changes from previously documented assessment. Patient and/or family cp4 updated on plan of care and expected duration. Pain level reassessed. Patient is alert, oriented x 3, equal unlabored respirations, skin warm/dry/pink. 20:00 Reassessment: Patient appears in no apparent distress at this time. Patient and/or cp4 family updated on plan of care and expected duration. Pain level reassessed. Patient is alert, oriented x 3, equal unlabored respirations, skin warm/dry/pink. 21:00 Reassessment: Patient appears in no apparent distress at this time. Patient and/or cp4 family updated on plan of care and expected duration. Pain level reassessed. Patient is alert, oriented x 3, equal unlabored respirations, skin warm/dry/pink. 22:00 Reassessment: Patient appears in no apparent distress at this time. Patient and/or cp4 family updated on plan of care and expected duration. Pain level reassessed. Patient is alert, oriented x 3, equal unlabored respirations, skin warm/dry/pink. 23:00 Reassessment: Patient appears in no apparent distress at this time. Patient and/or cp4 family updated on plan of care and expected duration. Pain level reassessed. Patient is alert, oriented x 3, equal unlabored respirations, skin warm/dry/pink. Vital Signs: 10:56 BP 124 / 71; Pulse 97; Resp 18; Temp 99.7(TE); Pulse Ox 98% on R/A; Weight 77.11 kg; hb Height 5 ft. 4 in. ; Pain 6/10; 13:00 BP 155 / 83; Pulse 92; Resp 16; Pulse Ox 97% ; ko1 14:00 BP 149 / 86; Pulse 91; Resp 15; Pulse Ox 98% ; ko1 15:00 BP 142 / 79; Pulse 89; Resp 16; Pulse Ox 100% ; ko1 16:37 BP 152 / 78; Pulse 93; Resp 17; Pulse Ox 97% on R/A; ko1 19:00 BP 126 / 71; Pulse 91; Resp 17; Pulse Ox 95% ; cp4 20:00 BP 113 / 59; Pulse 94; Resp 16; Pulse Ox 95% ; cp4 21:05 BP 113 / 58; Pulse 93; Resp 17; Pulse Ox 96% ; cp4 22:00 BP 106 / 56; Pulse 98; Resp 18; Pulse Ox 94% ; cp4 22:00 BP 119 / 58; Pulse 98; Resp 18; Temp 101.2; Pulse Ox 94% ; cp4 10:56 Body Mass Index 29.18 (77.11 kg, 162.56 cm) hb 10:56 Pain Scale: Adult hb ED Course: 10:56 Patient arrived in ED. hb 11:00 Triage completed. hb 11:00 Hoang Landers DO is Attending Physician. ms3 11:00 Arm band placed on. hb 12:19 Patient placed in an exam room, in a wheelchair. ll1 12:20 Tamera Brink, MALI is Primary Nurse. ko1 13:44 AMMONIA Sent. ko1 13:44 CBC with Diff Sent. ko1 13:44 CMP Sent. ko1 13:49 Accessed peripheral vein via ultrasound, utilizing dynamic ultrasound technique Blood cm10 collected. Clean \\T\\ dry. Dressing intact. Good blood return. Flushes easily. 20g right ac. 15:00 Patient has correct armband on for positive identification. Allergy band placed. Fall ko1 risk band placed. Bed in low position. Call light in reach. Side rails up X2. Provided Education on: labs. Pulse ox on. NIBP on. Door closed. Noise minimized. Lights dimmed. Warm blanket given. Pillow given. 15:00 No provider procedures requiring assistance completed. ko1 16:07 Extremity Venous Uni Ltd US In Process Unspecified. EDMS 16:49 [place] MD is Hospitalizing Provider. ms3 17:08 EKG done, by ED staff, reviewed by Hoang Landers DO. ap3 18:11 Accessed peripheral vein via ultrasound, utilizing dynamic ultrasound technique Clean \\T\\ cm10 dry. Dressing intact. Good blood return. Flushes easily. 20G Left upper arm. 18:35 Abdomen In Process Unspecified. EDMS 19:09 Urinalysis w/ reflexes Sent. ko1 23:06 Patient admitted, IV remains in place. cp4 Administered Medications: 16:32 Drug: morphine IVP or IV 4 mg IVP once over 4 mins Route: IVP; Infused Over: 4 mins; ko1 Site: right antecubital; 17:02 Follow up: Response: No adverse reaction ko1 16:32 Drug: vancoMYCIN IVPB 1 grams IVPB once over 2 hrs Route: IVPB; Infused Over: 2 hrs; ko1 Site: right antecubital; 18:11 Follow up: IV SiteChange: left upper arm; IV SiteChange Reason: Infiltration cm10 16:32 Drug: Potassium Chloride PO Liquid 40 mEq PO once Route: PO; ko1 17:02 Follow up: Response: No adverse reaction ko1 17:36 Not Given (Physician Discretion): [id number] mg PO once ko1 19:50 Drug: Heparin (DVT/PE- Bolus per protocol) - HEParin IVP 80 units/kg IVP once; Max cp4 8,000 units {Co-Signature: br2 (Britney Castañeda RN).} Route: IVP; Site: left antecubital; 21:07 Follow up: Response: No adverse reaction cp4 19:51 Drug: Heparin (DVT/PE Drip) 18 units/kg/hr - ([place] [address] units, D5W IV 500 ml) IV cp4 at calculated rate Per protocol; Max initial rate 1800 units/hr {Co-Signature: br2 (Britney Castañeda RN).} Route: IV; Rate: calculated rate; Site: left antecubital; 23:08 Follow up: IV Status: Infusion continued upon admission cp4 Medication: 15:00 VIS not applicable for this client. ko1 Outcome: 16:50 Decision to Hospitalize by Provider. ms3 23:06 Admitted to Med/surg accompanied by nurse, via stretcher, with chart, cp4 23:06 Condition: stable 23:06 Instructed on the need for admit, 23:08 Patient left the ED. cp4 Signatures: Dispatcher [employer] EDMS Chica Baker RN MALI hb Ruby Black RN RN tj3 Wilbert Salomon RN RN ll1 Hoang Landers DO DO ms3 Tamera Brink RN RN ko1 Holli Lehman, RN RN Jie Wong cp4 Britney Castañeda RN br2 Corrections: (The following items were deleted from the chart) 11:01 10:56 Acuity: ADAM 3 hb hb 11:01 10:56 Acuity: ADAM 2 hb hb 11:03 10:56 Chief complaint: EMS states: Pain all over. Pt stated "I got pain because of my hb colitis." hb 11:05 10:56 Chief complaint: EMS states: Pain all over. Pt stated "I got pain because of my hb colitis, I need to be hospitalized because I am being harassed by my doctor, he won't call me back.." hb 11:05 10:56 Acuity: ADAM 3 hb hb 12:25 12:19 Patient placed in an exam room, on a stretcher, ll1 ll1 16:25 15:00 [facility] ED Fall Risk Assessment (Adult) History of falling in the last 3 months, ko1 including since admission Yes- single mechanical fall (1 pt) Confusion or Disorientation No (0 pts) Intoxicated or Sedated No (0 pts) Impaired Gait Yes (1 pt) Mobility Assist Device Used Yes (1 pt) Altered Elimination No (0 pt) Score/Fall Risk Level 3 or more points = High Risk Oriented to surroundings, Maintained a safe environment, Educated pt \\T\\ family on fall prevention, incl call for assistance when getting out of bed, Assessed \\T\\ reinforced patient's understanding of fall precautions, Provided non-skid footwear, Hourly rounding (assess needs \\T\\ fall precautionary measures) done, Used ambulatory aids as needed (educated on \\T\\ assisted with), Used gait belt as appropriate Implemented a Fall Risk Plan of Care, Apply high fall risk patient identification: yellow non skid footwear/ fall signage, Remained w/in arm's length of patient and in sight while toileting, Offered frequent toileting (1:1 observation), Remained with patient while ambulating, Utilized family, sitter, or virtual boiler blower as indicated ko1
--- NOTE | 2024-09-10 16:51 | EDPHYS ---
Physician Documentation [facility] Name: Leonila Chaudhry Age: 64 yrs Sex: Female : 1960 Arrival Date: 09/10/2024 Time: 10:52 Bed 5 Private MD: ED Physician Hoang Landers HPI: 09/10 11:22 This 64 yrs old Female presents to ER via EMS with complaints of Pain All Over.ms3 11:22 64-year-old female with past medical history of bipolar disorder, cirrhosis, GERD, type ms3 C, hypertension presents to the emergency department via [facility] for medication refill for her colitis medication. On exam patient denies pain. Patient denies any alleviating or inciting factors. . Historical: - Allergies: 11:00 LITHIUM DERIVITIVES; hb - PMHx: 11:00 Bipolar disorder; cirrhosis of liver; GERD; Hepatitis C; Hypertensive disorder; hb - PSHx: 11:00 section; hb - Immunization history:: Adult Immunizations up to date. - Infectious Disease History:: Denies. - Social history:: Smoking status: Patient denies any tobacco usage or history of. ROS: 11:22 Constitutional: Negative for fever, and chills. Cardiovascular: Negative for chest ms3 pain, and palpitations. Respiratory: Negative for shortness of breath, cough, wheezing, and pleuritic chest pain, Abdomen/GI: Negative for abdominal pain, nausea, vomiting, diarrhea, and constipation, MS/Extremity: Negative for injury and deformity, Skin: Negative for injury, rash, and discoloration, Exam: 11:22 Constitutional: This is a well developed, well nourished patient who is awake, alert, ms3 and in no acute distress. Head/Face: Normocephalic, atraumatic. Neck: Trachea midline, no cervical lymphadenopathy. Supple, full range of motion without nuchal rigidity, or vertebral point tenderness. No Meningismus. Chest/axilla: Normal chest wall appearance and motion. Nontender with no deformity. Cardiovascular: Regular rate and rhythm with a normal S1 and S2. No gallops, murmurs, or rubs. Normal PMI, no JVD. No pulse deficits. Respiratory: Lungs have equal breath sounds bilaterally, clear to auscultation and percussion. No rales, rhonchi or wheezes noted. No increased work of breathing, no retractions or nasal flaring. Abdomen/GI: Soft, non-tender, with normal bowel sounds. No distension or tympany. No guarding or rebound. No evidence of tenderness throughout. Skin: Warm, dry with normal turgor. Normal color with no rashes, no lesions, and no evidence of cellulitis. 18:00 ECG was reviewed by the Attending Physician. ms3 Vital Signs: 10:56 BP 124 / 71; Pulse 97; Resp 18; Temp 99.7(TE); Pulse Ox 98% on R/A; Weight 77.11 kg; hb Height 5 ft. 4 in. ; Pain 6/10; 13:00 BP 155 / 83; Pulse 92; Resp 16; Pulse Ox 97% ; ko1 14:00 BP 149 / 86; Pulse 91; Resp 15; Pulse Ox 98% ; ko1 15:00 BP 142 / 79; Pulse 89; Resp 16; Pulse Ox 100% ; ko1 16:37 BP 152 / 78; Pulse 93; Resp 17; Pulse Ox 97% on R/A; ko1 19:00 BP 126 / 71; Pulse 91; Resp 17; Pulse Ox 95% ; cp4 20:00 BP 113 / 59; Pulse 94; Resp 16; Pulse Ox 95% ; cp4 21:05 BP 113 / 58; Pulse 93; Resp 17; Pulse Ox 96% ; cp4 22:00 BP 106 / 56; Pulse 98; Resp 18; Pulse Ox 94% ; cp4 22:00 BP 119 / 58; Pulse 98; Resp 18; Temp 101.2; Pulse Ox 94% ; cp4 10:56 Body Mass Index 29.18 (77.11 kg, 162.56 cm) hb 10:56 Pain Scale: Adult hb MDM: 11:22 Medical Screening Exam initiated ms3 11:22 Differential Diagnosis Hepatic encephalopathy versus anemia versus cirrhosis. ms3 15:33 ED course: Patient complaining of R leg pain. Ankle/ lower leg is red and swollen. Will ms3 give Vancomycin. Sepsis order set ordered previously.. 20:01 Data reviewed: vital signs, nurses notes, lab test result(s), EKG, radiologic studies, ms3 and as a result, I will admit patient. Consideration of Admission/Observation Patient was admitted/placed on observation. Management of patient was discussed with the following: Hospitalist: Dr Diego. I considered the following discharge prescriptions or medication management in the emergency department Medications were administered in the Emergency Department. See MAR. Independent interpretation of the following test(s) in the Emergency Department EKG: See my EKG interpretation above retail and restaurant: rate is 88 beats/min, Rhythm is normal sinus rhythm, regular, with no ectopy, Interpretation: normal rate, normal rhythm. Historians other than the Patient: EMS: [facility]. Counseling: I had a detailed discussion with the patient and/or guardian regarding the historical points, exam findings, and any diagnostic results supporting the discharge/admit diagnosis, lab results, radiology results, the need for further work-up and treatment in the hospital. ED course: Discussed plan for admission with patient and her family. They understand and agree with plan. All questions were answered.. 09/10 11:22 Order name: CBC with Diff; Complete Time: 16:07 ms3 09/10 11:22 Order name: CMP; Complete Time: 14:11 ms3 09/10 11:22 Order name: AMMONIA; Complete Time: 14:11 ms3 09/10 14:14 Order name: Urinalysis w/ reflexes ms3 09/10 14:14 Order name: Blood Culture Adult (2) ms3 09/10 14:14 Order name: Lactate w/ 2H reflex if indic.; Complete Time: 20:21 ms3 09/10 14:14 Order name: Protime (+inr); Complete Time: 20:45 ms3 09/10 14:14 Order name: Ptt, Activated; Complete Time: 20:45 ms3 09/10 15:33 Order name: CBC Smear Scan; Complete Time: 16:07 EDMS 09/10 21:25 Order name: Ammonia EDMS 09/10 21:25 Order name: Ammonia EDMS 09/10 21:25 Order name: CBC with Automated Diff EDMS 09/10 21:25 Order name: CBC with Automated Diff EDMS 09/10 21:25 Order name: Comprehensive Metabolic Panel EDMS 09/10 21:25 Order name: Comprehensive Metabolic Panel EDMS 09/10 21:25 Order name: Protime (+INR) EDMS 09/10 21:25 Order name: Protime (+INR) EDMS 09/10 21:25 Order name: PTT, Activated Partial Thromb EDMS 09/10 21:25 Order name: PTT, Activated Partial Thromb EDMS 09/10 21:25 Order name: Troponin High Sensitivity EDMS 09/10 21:25 Order name: Troponin High Sensitivity EDMS 09/10 21:25 Order name: Troponin High Sensitivity EDMS 09/10 21:25 Order name: Troponin High Sensitivity EDMS 09/10 21:26 Order name: Type and Screen EDMS 09/10 22:06 Order name: Ghost Lactate-NO COLLECT Timer EDMS 09/10 15:30 Order name: Extremity Venous Uni Ltd US; Complete Time: 16:48 ms3 09/10 17:39 Order name: Abdomen ; Complete Time: 20:02 EDMS 09/10 21:25 Order name: CONS Physician Consult EDMS 09/10 11:22 Order name: IV Saline Lock; Complete Time: 13:44 ms3 09/10 11:22 Order name: Labs collected and sent; Complete Time: 13:44 ms3 09/10 14:14 Order name: Accucheck; Complete Time: 14:33 ms3 09/10 14:14 Order name: Cardiac monitoring; Complete Time: 14:33 ms3 09/10 14:14 Order name: EKG - Nurse/Tech; Complete Time: 17:08 ms3 09/10 14:14 Order name: IV Saline Lock - Large Bore; Complete Time: 14:33 ms3 09/10 14:14 Order name: O2 Per Protocol; Complete Time: 14:33 ms3 09/10 14:14 Order name: O2 Sat Monitoring; Complete Time: 14:33 ms3 09/10 14:14 Order name: Vital Signs; Complete Time: 14:33 ms3 EC:00 Rate is 93 beats/min. Rhythm is regular. QRS [place] is Normal. [place] interval is normal. QRS ms3 interval is normal. Clinical impression: Normal ECG. Interpreted by me. Reviewed by me. Administered Medications: 16:32 Drug: morphine IVP or IV 4 mg IVP once over 4 mins Route: IVP; Infused Over: 4 mins; ko1 Site: right antecubital; 17:02 Follow up: Response: No adverse reaction ko1 16:32 Drug: vancoMYCIN IVPB 1 grams IVPB once over 2 hrs Route: IVPB; Infused Over: 2 hrs; ko1 Site: right antecubital; 18:11 Follow up: IV SiteChange: left upper arm; IV SiteChange Reason: Infiltration cm10 16:32 Drug: Potassium Chloride PO Liquid 40 mEq PO once Route: PO; ko1 17:02 Follow up: Response: No adverse reaction ko1 17:36 Not Given (Physician Discretion): [id number] mg PO once ko1 19:50 Drug: Heparin (DVT/PE- Bolus per protocol) - HEParin IVP 80 units/kg IVP once; Max cp4 8,000 units {Co-Signature: jacqui (Britney Castañeda RN).} Route: IVP; Site: left antecubital; 21:07 Follow up: Response: No adverse reaction cp4 19:51 Drug: Heparin (DVT/PE Drip) 18 units/kg/hr - ([place] [address] units, D5W IV 500 ml) IV cp4 at calculated rate Per protocol; Max initial rate 1800 units/hr {Co-Signature: jacqui (Britney Castañeda RN).} Route: IV; Rate: calculated rate; Site: left antecubital; 23:08 Follow up: IV Status: Infusion continued upon admission cp4 Disposition Summary: 09/10/24 16:50 Hospitalization Ordered Notes: Hospitalization Status: Observation ms3 Provider: [place] ms3 Location: Telemetry/MedSurg (observation) ms3 Condition: Stable ms3 Problem: new ms3 Symptoms: are unchanged ms3 Bed/Room Type: Standard ms3 Room Assignment: 408(09/10/24 21:34) cg Diagnosis - Right lower extremity DVT ms3 - Cellulitis of right lower limb ms3 - Pain in left leg ms3 Forms: - Medication Reconciliation Form ms3 - SBAR form ms3 - Leadership Thank You Letter ms3 Signatures: Dispatcher [employer] Amisah Meredith RN RN Chica Baker RN RN Hoang Anthony DO DO ms3 Tamera Brink RN RN Jie Bueno cp4 Holli Lehman RN cm10 Britney Castañeda RN br2 Corrections: (The following items were deleted from the chart) 11:23 11:23 CBC+H.LAB.BRZ ordered. EDMS EDMS 11:23 11:23 COMPREHENSIVE METABOLIC PANEL+C.LAB.BRZ ordered. EDMS EDMS 11:23 11:23 AMMONIA+C.LAB.BRZ ordered. EDMS EDMS 14:14 14:14 Urinalysis+U.LAB.BRZ ordered. EDMS EDMS 14:14 14:14 BLOOD CULTURE*+BA.LAB.BRZ ordered. EDMS EDMS 14:14 14:14 LACTATE+C.LAB.BRZ ordered. EDMS EDMS 14:14 14:14 PROTIME (+INR)+COAG.LAB.BRZ ordered. EDMS EDMS 14:14 14:14 PTT, ACTIVATED+COAG.LAB.BRZ ordered. EDMS EDMS 21:34 16:50 ms3 cg
[2024-09-10] MEDS ORDERED: HEPARIN/D5W 25,000 UNIT/500 ML BAG IV ONE (18:45)
[2024-09-10] MEDS ORDERED: HEPARIN 5000 UNIT/ML 1 ML VIAL ONE (18:45)
--- NOTE | 2024-09-10 18:56 | RAD REPORT ---
EXAMINATION: CT ABDOMEN AND PELVIS WITH CONTRAST CLINICAL INDICATION: Female, 64 years old.cirrhosis/liver mass TECHNIQUE: CT abdomen and pelvis was performed, after the administration of IV contrast, as [facility]. Axial, sagittal and coronal reconstructions were obtained. One or more of the following dose reduction techniques were used: Automated exposure control, adjustment of the mA and/o r kV according to patient size, and/or iterative reconstruction. Unless otherwise specified, incidental findings do not require dedicated imaging follow-up. [id number]. COMPARISON: No prior exam. FINDINGS: LOWER CHEST: Trace left pleural effusion. Moderately thickened distal esophagus. Probable paraesophag eal varices. LIVER: Cirrhotic liver morphology. The main portal vein is patent. GALLBLADDER/BILE DUCT: No biliary ductal dilatation.? PANCREAS: No significant abnormality. SPLEEN: Splenomegaly ADRENALS: Normal; no mass. KIDNEYS AND URETERS: Bilateral renal lesions which are either benign in appearance or too small to ac curately characterize but statistically benign. GASTROINTESTINAL TRACT: Wall thickening at the ascending, transverse, and descending colon. The sigmo id colon and rectum are within normal limits. PERITONEUM: Mild ascites. LYMPH NODES: No lymphadenopathy. ABDOMINAL AORTA AND OTHER VESSELS: Normal caliber aorta and IVC. URINARY BLADDER: Normal contour. REPRODUCTIVE ORGANS: Calcified uterine fibroid. MUSCULOSKELETAL: No acute or suspicious osseous abnormality. ADDITIONAL FINDINGS: None. IMPRESSION: Wall thickening extending from the ascending colon through the descending colon concerning for the pr esence of a colitis. There is motion artifact which limits evaluation. Findings are most pronounced at the ascending colon. No evidence of bowel obstruction, perforation, or abscess. Cirrhosis with evidence of portal hypertension including moderate ascites, lower paraesophageal varic es, and splenomegaly.
[2024-09-10 19:55] LABS: PT Prothrombin Time 16.5 SECONDS (9.4-12.5); PTT, Activated Partial Thromb 32.7 SECONDS (24.3-36.9); Protime INR 1.49
[2024-09-10] MEDS ORDERED: ACETAMINOPHEN 500 MG TAB PO PRN (21:17)
--- NOTE | 2024-09-10 21:36 | P.HP ---
Certification for Inpatient Patient admitted to: Inpatient With expected LOS: >2 Midnights Patient will require the following post-hospital care: Intermediate Practitioner: I am a practitioner with admitting privileges, knowledge of patient current condition, hospital course, and medical plan of care. Services: Services provided to patient in accordance with Admission requirements found in Title 42 Section 412.3 of the Code of Federal Regulations Patient History Date of Service: 09/10/24 Reason for admission: Right lower extremity DVT; colitis History of Present Illness: patient is a 64-year-old female who is well known to me from prior admission. She came in with confusion and complaints of needing her medication for colitis. However, the family members at bedside stated that they was willing at patient has significant pain in the right leg it is warm and tender and erythematous. Patient most likely has a secondary cellulitis to the deep venous thrombosis. Patient has a history of psychosis and left patient also with liver cirrhosis. Patient has been poorly compliant with her treatment. At this time, patient will be admitted to the hospital for treatment of the DVT along with cellulitis. Patient has cirrhosis. Patient has had elevated bilirubin on numerous occasions along with thrombocytopenia. At this time, patient will be admitted for inpatient hospitalization. Allergies lithium Allergy (Verified 09/11/24 07:16) Anaphylaxis Home Medications: Amlodipine [Norvasc*] 10 mg PO DAILY 10/06/23 Furosemide [Lasix*] 40 mg PO DAILY 10/06/23 Metoprolol Tartrate [Lopressor] 50 mg PO DAILY 10/06/23 OLANZapine [Zyprexa*] 10 mg PO DAILY 10/06/23 Omeprazole [Prilosec] 40 mg PO DAILY 10/06/23 Ciprofloxacin HCl [Cipro 500 MG Tablet] 500 mg PO BID 7 Days #14 tab 10/10/23 - Past Medical/Surgical History Diabetic: No -: GERD -: BPD -: HTN -: Hep C cirrhosis -: Hepatocellular carcinoma -: HTN -: Hx YOGI (Dr. Lambert/ Dr. Hogue) -: -: liver sx Psychosocial/ Personal History: Unemployed, lives with her daughter - Family History Father Medical History: Heart disease Mother Medical History: Heart disease - Social History Smoking Status: Former smoker Alcohol use: Yes CD- Drugs: No Caffeine use: Yes Review of Systems is unable to be obtained Physical Examination - Vital Signs Temperature: 98 F Blood Pressure: 140/80 Pulse: 80 Respirations: 18 Pulse Ox (%): 95 - Physical Exam General: Alert, In no apparent distress, Confused HEENT: Atraumatic, Normocephalic, Scleral icterus Neck: Supple, 2+ carotid pulse no bruit, JVD not distended Respiratory: Expiratory wheezes Cardiovascular: Regular rate/rhythm, Normal S1 S2, No murmurs Gastrointestinal: Normal bowel sounds, Soft and benign, Non-distended, No tenderness Musculoskeletal: No clubbing, No swelling, Erythema, Tenderness, Warmth Integumentary: Tenderness/swelling, Erythema, Warmth Neurological: Abnormal gait, Abnormal speech Lymphatics: No axilla or inguinal lymphadenopathy - Studies Laboratory Data (last 24 hrs) 09/10/24 09/10/24 09/10/24 19:15 13:34 13:34 WBC 13.70 H Hgb 10.4 L Hct 31.6 L Plt Count 68 L PT 16.5 H INR 1.49 APTT 32.7 Sodium 136 Potassium 3.2 L BUN 19 H Creatinine 1.18 H Glucose 123 H Total Bilirubin 2.2 H AST 60 H ALT 47 Alkaline Phosphatase 112 Assessment & Plan - Problems (Diagnosis) (1) Right leg DVT Current Visit: Yes Status: Acute (2) Colitis Current Visit: Yes Status: Acute (3) Thrombocytopenia Current Visit: Yes Status: Acute (4) Bipolar 1 disorder Current Visit: No Status: Chronic (5) HTN (hypertension) Current Visit: No Status: Chronic Qualifiers: Hypertension type: primary hypertension Qualified Code(s): I10 - Essential (primary) hypertension (6) Hepatic cirrhosis due to chronic hepatitis C infection Current Visit: No Status: Chronic (7) Tobacco use Current Visit: No Status: Chronic - Plan Plan: 1. continue with anticoagulation and antibiotics. 2. monitor H&H closely as we are going to go ahead and start her on IV heparin. Will probably advanced to oral anticoagulation. 3. Gastroenterology consultation 4. May need to get Infectious Disease consulted 5. Patient has colitis on imaging but the family does not state that she is having lot of diarrhea. If she does not have stool studies. - Advance Directives Does patient have a Living Will: No Does patient have a Durable POA for Healthcare: No - Code Status/Comfort Care Code Status Assessed: Yes Code Status: Full Code Critical Care: No Time Spent Managing PTS Care (In Minutes): 45
[2024-09-10] MEDS ORDERED: VANCOMYCIN 1 GM in NA CHLORIDE 0.9% 250 ML IVPB SCH (22:00)
[2024-09-10] MEDS: NA CHLORIDE 0.9% 1,000 ML IV SCH (22:00)
[2024-09-11 01:25] VITALS: BMI 29.2
[2024-09-11 05:20] LABS: PTT, Activated Partial Thromb 93.5 SECONDS (24.3-36.9); Protime INR 1.72
[2024-09-11 06:01] LABS: Absolute Basophils 0.1 K/uL (0-0.5); Absolute Monocytes 3.9 K/uL (0.1-1.3); Absolute Neutrophil 11.3 K/uL (1.8-8.0); Basophils % 0.4 % (0-1.3); Eosinophils % 0.2 % (0-4.4); Hematocrit 30.3 % (36.0-45.0); Hemoglobin 9.7 g/dL (12.0-15.0); Lymphocytes % 16.1 % (15.3-44.8); MCH 28.5 pg (27.0-35.0); MCHC 32.1 g/dL (32.0-36.0); MCV 88.9 fL (80-100); MPV 9.7 fL (7.6-11.3); Monocytes % 21.3 % (3.3-12.3); Platelets 62 thou/uL (152-406); RBC Red Blood Cell Count 3.41 M/uL (3.86-4.86)
[2024-09-11] MEDS: MORPHINE 2 MG/ML SYR IV PRN (06:01)
[2024-09-11 06:17] LABS: Albumin/Globulin Ratio 0.5 (1.1-1.8); Anion Gap 8.8 mEq/L (5.0-15.0); Bilirubin Total 2.7 mg/dL (0.2-1.0); Potassium 3.8 mEq/L (3.5-5.1); Troponin High Sensitivity 19.4 pg/mL (<58.9)
[2024-09-11 07:02] LABS: Differential Total Cells Count 100; Dohle Bodies NOTED; Lymphocytes 13 % (15-42); Metamyelocytes 1 % (0-0); Monocytes 19 % (0-10); Platelet Estimate DECR; Reactive Lymphocytes 1 %; Segmented Neutrophils 66 % (40-80)
[2024-09-11 07:03] LABS: Blood Morphology Comment NOT SEEN (NOT SEEN)
[2024-09-11] MEDS: SPIRONOLACTONE 25 MG TABLET PO SCH (08:55)
[2024-09-11] MEDS: FUROSEMIDE 20 MG TABLET PO SCH (08:55)
[2024-09-11] MEDS: metroNIDAZOLE 500 MG TABLET PO SCH (08:55)
[2024-09-11] MEDS: METHYLPREDNISOLONE 125 MG INJ IV ONE (08:55)
[2024-09-11] MEDS: VANCOMYCIN 1.5 GM in NA CHLORIDE 0.9% 500 ML IVPB SCH (08:55)
[2024-09-11] MEDS ORDERED: VANCOMYCIN 1.5 GM in NA CHLORIDE 0.9% 500 ML IVPB SCH (10:00)
--- NOTE | 2024-09-11 12:27 | P.PN ---
Subjective Date of Service: 09/11/24 Chief Complaint: Right lower extremity DVT; colitis Pt is resting comfortably in bed. She is having visual hallucination and talking to people that are not in the room. She is eager to go home. Pt is using curse words on the members of the medical team. No other complaints. Review of Systems is unable to be obtained Physical Examination - Vital Signs Temperature: 98 F Blood Pressure: 140/80 Pulse: 80 Respirations: 16 Pulse Ox (%): 94 - Physical Exam General: Alert, In no apparent distress, Confused HEENT: Atraumatic, Normocephalic, PERRLA Neck: Supple, 2+ carotid pulse no bruit, JVD not distended Respiratory: Clear to auscultation bilaterally, Normal air movement Cardiovascular: No edema, Normal pulses, Regular rate/rhythm, Normal S1 S2 Capillary refill: <2 Seconds Gastrointestinal: Normal bowel sounds, Soft and benign, Non-distended Musculoskeletal: No clubbing, No swelling, No contractures Integumentary: No rashes, No breakdown, No significant lesion Neurological: Normal gait, Normal speech, Normal strength at 5/5 x4 extr, Normal tone Lymphatics: No axilla or inguinal lymphadenopathy - Studies Laboratory Data (last 24 hrs) 09/10/24 09/10/24 09/10/24 19:15 13:34 13:34 WBC 13.70 H Hgb 10.4 L Hct 31.6 L Plt Count 68 L PT 16.5 H INR 1.49 APTT 32.7 Sodium 136 Potassium 3.2 L BUN 19 H Creatinine 1.18 H Glucose 123 H Total Bilirubin 2.2 H AST 60 H ALT 47 Alkaline Phosphatase 112 Microbiology Data (last 24 hrs): 09/10/24 19:15 Blood - Blood Anaerobic Blood Culture - Final 09/10/24 19:30 Blood - Blood Anaerobic Blood Culture - Final Assessment And Plan - Plan Right leg DVT/ cellulitis: Will continue heparin drip, iv vanc and prn pain. Acute colitis: Will continue iv flagyl. Thrombocytospenia: Plt is 62. No active bleeding. Will monitor plt. Hx of Bipolar disorder I; Will continue home med once reconciled. Htn: Monitor BP. BP is normotensive. Liver cirrhosis 2/2 Chronic Hep C: Will monitor LFTs. Tobacco abuse: Pt was advised to quit smoking. DVT ppx: heparin drip Dispo: pending hospital course.
[2024-09-11 15:53] LABS: Specific Gravity 1.023 (1.005-1.030); Urine Bacteria <20 /HPF (<20); Urine Bilirubin NEGATIVE (Negative); Urine Blood Negative (Negative); Urine Clarity Turbid (Clear); Urine Color Yellow (Yellow); Urine Crystals Unidentified Few /HPF (None Seen); Urine Culture Reflex Order NOT NEEDED; Urine Glucose NEGATIVE (Negative); Urine Ketones NEGATIVE (Negative); Urine Microscopic Reflex YN ORDER UMIC; Urine Mucus Slight /HPF (None Seen); Urine Nitrite NEGATIVE (Negative); Urine Protein TRACE (Negative); Urine RBC <5 /HPF (None Seen); Urine Urobilinogen 2+ (Normal); Urine WBC <5 /HPF (<5); Urine pH 6.5 (5.0-7.0)
[2024-09-11] MEDS: HEPARIN/D5W 25,000 UNIT/500 ML BAG IV SCH (17:42)
[2024-09-11] MEDS: OLANZapine 10 MG TABLET PO SCH (20:04)
[2024-09-12 07:40] LABS: Absolute Lymphocytes (CBC) 2.4 K/uL (0.7-4.9); Basophils % 0.2 % (0-1.3); Hematocrit 27.5 % (36.0-45.0); Hemoglobin 8.9 g/dL (12.0-15.0); Lymphocytes % 13.7 % (15.3-44.8); MCH 28.7 pg (27.0-35.0); MCHC 32.5 g/dL (32.0-36.0); MCV 88.3 fL (80-100); MPV 10.1 fL (7.6-11.3); Monocytes % 11.3 % (3.3-12.3); Neutrophils % 74.8 % (41.7-73.7); Platelets 64 thou/uL (152-406); RBC Red Blood Cell Count 3.11 M/uL (3.86-4.86); Red Cell Distribution Width 16.7 % (12.1-15.2)
[2024-09-12 07:53] LABS: Anion Gap 10.9 mEq/L (5.0-15.0); Potassium 3.9 mEq/L (3.5-5.1); Troponin High Sensitivity 9.5 pg/mL (<58.9)
[2024-09-12 09:33] LABS: Band Neutrophils 6 % (0-1); Differential Total Cells Count 100; Lymphocytes 14 % (15-42); Metamyelocytes 1 % (0-0); Monocytes 4 % (0-10); Platelet Estimate DECR; Segmented Neutrophils 75 % (40-80); Toxic Granulation 1+
[2024-09-12 09:34] LABS: Blood Morphology Comment NOT SEEN (NOT SEEN)
--- NOTE | 2024-09-12 10:37 | P.PN ---
Subjective Date of Service: 09/12/24 Chief Complaint: Right lower extremity DVT; colitis Pt is resting comfortably in bed. She is having visual hallucination and talking to people that are not in the room. The erythema on right leg is better. No other complaints. Review of Systems General: Unremarkable Eyes: Unremarkable ENT: Unremarkable Respiratory: Unremarkable Cardiovascular: Unremarkable Gastrointestinal: Unremarkable Genitourinary: Unremarkable Integumentary: Other (erythema on right leg) Neurological: Confusion Lymphatics: Unremarkable Physical Examination - Vital Signs Temperature: 97.6 F Blood Pressure: 105/63 Pulse: 71 Respirations: 17 Pulse Ox (%): 96 - Physical Exam General: Alert, In no apparent distress, Oriented x3 HEENT: Atraumatic, Normocephalic, PERRLA Neck: Supple, 2+ carotid pulse no bruit, JVD not distended Respiratory: Clear to auscultation bilaterally, Normal air movement Cardiovascular: No edema, Normal pulses, Regular rate/rhythm, Normal S1 S2 Capillary refill: <2 Seconds Gastrointestinal: Normal bowel sounds, Soft and benign, Non-distended Musculoskeletal: No clubbing, No swelling, No contractures Integumentary: No rashes, No breakdown, No significant lesion Neurological: Normal gait, Normal speech, Normal strength at 5/5 x4 extr Lymphatics: No axilla or inguinal lymphadenopathy - Studies Microbiology Data (last 24 hrs): 09/10/24 19:30 Blood - Blood Anaerobic Blood Culture - Final 09/10/24 19:15 Blood - Blood Anaerobic Blood Culture - Final Assessment And Plan - Plan Right leg DVT/ cellulitis: Will continue heparin drip, iv vanc and prn pain. Acute colitis: Will continue iv flagyl. Thrombocytospenia: Plt is 64<- 62. No active bleeding. Will monitor plt. Hx of Bipolar disorder I: Will continue home med once reconciled. Htn: Monitor BP. BP is normotensive. Liver cirrhosis 2/2 Chronic Hep C: Will monitor LFTs. Tobacco abuse: Pt was advised to quit smoking. DVT ppx: heparin drip Dispo: pending hospital course.
--- NOTE | 2024-09-12 12:21 | EKG ---
Test Date: 2024-09-10 Test Time: 17:05:19 Non Morse Intercept Technician: ALP MEASUREMENT RESULTS: Intervals: Rate: 93 DC: 132 QRSD: 90 QT: 316 QTc: 392 [place]: P: 38 DC: 132 QRS: 51 T: 60 INTERPRETIVE STATEMENTS: Normal sinus rhythm Normal ECG Compared to ECG 05/22/2024 00:12:18 No significant changes Electronically Signed On 09-12-24 12:16:48 CDT by Beka Hatch
[2024-09-12 21:25] VITALS: O2SAT 99
[2024-09-13] MEDS: ONDANSETRON 4 MG/2 ML VIAL IV PRN (01:00)
[2024-09-13 06:29] LABS: Absolute Eosinophils 0.1 K/uL (0-0.5); Absolute Lymphocytes (CBC) 2.3 K/uL (0.7-4.9); Absolute Neutrophil 14.2 K/uL (1.8-8.0); Basophils % 0.2 % (0-1.3); Eosinophils % 0.7 % (0-4.4); Hematocrit 27.8 % (36.0-45.0); Hemoglobin 9.3 g/dL (12.0-15.0); Lymphocytes % 12.5 % (15.3-44.8); MCH 29.2 pg (27.0-35.0); MCHC 33.5 g/dL (32.0-36.0); MPV 9.6 fL (7.6-11.3); Monocytes % 10.9 % (3.3-12.3); Neutrophils % 75.7 % (41.7-73.7); Platelets 100 thou/uL (152-406); Red Cell Distribution Width 16.3 % (12.1-15.2)
[2024-09-13 06:50] LABS: Anion Gap 9.1 mEq/L (5.0-15.0); Potassium 4.1 mEq/L (3.5-5.1); Troponin High Sensitivity 9.1 pg/mL (<58.9)
--- NOTE | 2024-09-13 10:16 | P.PN ---
Subjective Date of Service: 09/13/24 Chief Complaint: Right lower extremity DVT; colitis Pt is resting comfortably in bed. She is more interactive today. Visual hallucination improved since we resumed her home meds. The erythema on right leg is better. No other complaints. Review of Systems General: Unremarkable Eyes: Unremarkable ENT: Unremarkable Respiratory: Unremarkable Cardiovascular: Unremarkable Gastrointestinal: Unremarkable Genitourinary: Unremarkable Musculoskeletal: Leg Pain Integumentary: Other (erythema on right leg) Neurological: Unremarkable Lymphatics: Unremarkable Physical Examination - Vital Signs Temperature: 97.6 F Blood Pressure: 105/57 Pulse: 70 Respirations: 16 Pulse Ox (%): 96 - Physical Exam General: Alert, In no apparent distress, Oriented x3 HEENT: Atraumatic, Normocephalic, PERRLA Neck: Supple, 2+ carotid pulse no bruit, JVD not distended Respiratory: Clear to auscultation bilaterally, Normal air movement Cardiovascular: No edema, Normal pulses, Regular rate/rhythm, Normal S1 S2 Capillary refill: <2 Seconds Gastrointestinal: Normal bowel sounds, Soft and benign, Non-distended Musculoskeletal: No clubbing, No swelling, No contractures, No erythema Integumentary: No rashes, No breakdown, No significant lesion, No tenderness/swelling Neurological: Normal gait, Normal speech, Normal strength at 5/5 x4 extr, Normal tone, Sensation intact Lymphatics: No axilla or inguinal lymphadenopathy Assessment And Plan - Plan Right leg DVT / cellulitis: Will continue heparin drip, iv vanc and prn pain. Acute colitis: Will continue iv flagyl. Thrombocytopenia: Plt is 100 <- 64 <- 62. No active bleeding. Will monitor plt. Hx of Bipolar disorder I: Will continue home med once reconciled. Htn: Monitor BP. BP is normotensive. Liver cirrhosis 2/2 Chronic Hep C: Will monitor LFTs. Tobacco abuse: Pt was advised to quit smoking. DVT ppx: heparin drip Dispo: pending hospital course.
[2024-09-13] MEDS: CEFEPIME 2 GM in NA CHLORIDE 0.9% 100 ML IV SCH (12:25)
[2024-09-13] MEDS: LACTULOSE 20 GM/30 ML UCUP PO PRN (15:21)
[2024-09-13] MEDS: CODEINE 30MG/APAP 300MG TAB PO PRN (20:47)
[2024-09-14 07:27] VITALS: BP 105/65; TEMP 97.8
[2024-09-14] MEDS: APIXABAN 2.5 MG TABLET PO SCH (08:12)
[2024-09-14 09:18] LABS: Absolute Eosinophils 0.2 K/uL (0-0.5); Absolute Lymphocytes (CBC) 2.7 K/uL (0.7-4.9); Absolute Monocytes 1.8 K/uL (0.1-1.3); Absolute Neutrophil 10.9 K/uL (1.8-8.0); Basophils % 0.3 % (0-1.3); Eosinophils % 1.5 % (0-4.4); Hemoglobin 10.3 g/dL (12.0-15.0); Lymphocytes % 17.2 % (15.3-44.8); MCH 29.1 pg (27.0-35.0); MCHC 33.3 g/dL (32.0-36.0); MCV 87.6 fL (80-100); MPV 8.6 fL (7.6-11.3); Monocytes % 11.4 % (3.3-12.3); Neutrophils % 69.6 % (41.7-73.7); Nucleated Red Blood Cells % 0.3 % (0-0); Platelets 105 thou/uL (152-406); RBC Red Blood Cell Count 3.54 M/uL (3.86-4.86); Red Cell Distribution Width 17.1 % (12.1-15.2)
[2024-09-14] MEDS ORDERED: APIXABAN 5 MG TABLET PO SCH (21:00)
== END 2024-09-14 12:01 | disposition home or self-care (01) | DRG 300 ==
LOC: ER 10:52 → 4TH 21:17
PROVIDERS: ADMIT Hospitalist; ATTEND Hospitalist
DX: I82.441 Acute embolism and thrombosis of right tibial vein (principal); I85.10 Secondary esophageal varices without bleeding; L03.115 Cellulitis of right lower limb; K76.6 Portal hypertension; R18.8 Other ascites; K74.60 Unspecified cirrhosis of liver; I10 Essential (primary) hypertension; F31.9 Bipolar disorder, unspecified; D69.6 Thrombocytopenia, unspecified; K52.9 Noninfective gastroenteritis and colitis, unspecified; B18.2 Chronic viral hepatitis C; K21.9 Gastro-esophageal reflux disease without esophagitis; R44.1 Visual hallucinations; Z56.0 Unemployment, unspecified; Z79.899 Other long term (current) drug therapy; Z87.891 Personal history of nicotine dependence
CPT/HCPCS: 36415; 74177; 80048; 80053; 80202; 81001; 82140; 83605; 84484; 85025; 85610; 85730; 86850; 86900; 86901; 87040; 87205; 93005; 93971; 97161; 97530; 99285; J0692; J1644; J2270; J2405; J2919; J7030; J7040; J7050; Q9967

== ENCOUNTER 2024-10-28 11:46 | Emergency (ER) | payer OTHER ==
--- OUTSIDE RECORDS SUMMARY | 2024-10-28 11:57 | XMS REPORT | Continuity of Care Document ---
Author Name Unknown Address [address] [place] [address] [facility] thconnect Address 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 Name Role Phone Pcp, Pcp Primary Care Physician Unavailab JOHN Lino Attending Clinician Unavailable Tim Castillo MD Attending Clinician [phone]- [phone] Jeffery Villafuerte MD Attending Clinician [phone] John Singh MD Attend ing Clinician Karo Yoo RN Attending Clinician [phone] CYNDEE MARTÍNEZ Attending Clinician Unavailable Grant CARDONA, Mackenzie Palma Attending Clinician [phone] Cyndee Martínez MD Attending Clinician [phone] STEVEN GAYTAN Attending Clinician UnavailSTEVEN Oro Attending Clinician UnavailMegan Soriano Attending Clinician [phone] Hitesh SAMSON, Emmanuel Attending Clinician Unavailable Estella Kohler MD Attending Clinician [phone] Chandler Muniz MD Attending Clinician [phone] Ebony Ferrera MD Attending Clinician [phone] Kely La CRNA Attending Clinician [phone] ESTELLA KOHLER Attending Clinician Unavailable Milady FOWLER, Blanka Attending Clinician Unavail able Steven Gaytan MD Attending Clinician [phone] Doctor Unassigned, Kreamer Attending Clinician U navailable Kervin GROUND SUPPORT AGENT, Kalyani A Attending Clinician Unav jeremías Newsome PT, Nellie Attending Clinician Unavailabl nenita Wagoner MD, Pollo Attending Clinician [phone] Belen GREER, Valente Yao Attending Clinician [phone] Monet GAITANP, Mayra Blankenship Attending Clinician [phone] Kerri LEON, Enmanuel Attending Clinician [phone] Virtual, Surgeon Attending Clinician Unavailable Jeffery CARDONA, Elsi Cassidy Attending Clinician [phone] Jesse LEON, Kip Rodriguez Attending Clinician [phone] Alexander Burrows Attending Clinician Unavailable Maury SAMSON, Kaylyn Attending Clinician Unavail able Jung Sanches RN Attending Clinician Un available Uzma Perry MA Attending Clinician Unavailable Delma LEON, Rusty Shine Attending Clinician [phone] Sri Fuchs MA Attending Clinician Benson Brooks MA Attending Clinician Unavaila phyllis Min RN, Kayli Rubin Attending Clinician Unavailable VAISHNAVI MEYER Attending Clinician Unavailable JEFFERY VILLAFUERTE Admitting Clinician Unavailable Jeffery Villafuerte MD Admitting Clinician [phone] CYNDEE MARTÍNEZ Admitting Clinician Unavailable Cyndee Martínez MD Admitting Clinician [phone] CHANDLER MUNIZ Admitting Clinician Unavailable ENMANUEL REESE Admitting Clinician Unavailable Payers Payer Name Policy Type Policy Number Effective Date Expirati on Date Source [facility] [id number] 2023 00:00:00 Problems Condition Name Condition Details Condition Category Status Onset Date Resolution Date Last Treatment Date Treating Clinician Comments Source Physical debility Physical debility Disease Active 2023-11 00:00: 00 Hieu Warren Lymphedema Lymphedema Disease Recurre nce 2023-11 00:00: 00 Memtara foster [place] [facility] Acute pulmonary edema (CMS/HCC) Acute pulmonary edema (CMS/HCC) Disease Active 2023-11 00:00: 00 Hieu foster [facility] Epic Bilateral leg edema Bilateral leg edema Disease Active 2023-11 00:00: 00 Hieu Christopher Epic Hepatitis C Hepatitis C Disease Active 2023-11 00:00: 00 Hieu Christopher Epic Liver cirrhosis Liver cirrhosis Disease Active 2023-11 00:00: 00 Hieu Christopher Epic Portal hypertensi on (CMS/HCC) Portal hypertensi on (CMS/HCC) Disease Active 2023-11 00:00: 00 Hieu Christopher Epic Esophageal varices Esophageal varices Disease Active 2023-11 00:00: 00 Hieu Christopher Epic Bipolar disorder Bipolar disorder Disease Active 2023-11 00:00: 00 Hieu Christopher Epic Macrocytic anemia Macrocytic anemia Disease Active 2023-11 00:00: 00 Hieu foster [facility] Epic Thrombocyt openia Thrombocyt openia Disease Active 2023-11 00:00: 00 Hieu foster [place] Epic Leg swelling Leg swelling Disease Active 2023-11 0-29 00:00: 00 [facility] GI bleed GI bleed Disease Active 7-03 00:00: 00 [facility] Hepatocell ular carcinoma Hepatocell ular carcinoma Disease Recurre nce 2022-0 5-16 00:00: 00 [facility] Cirrhosis Cirrhosis Disease Recurre nce 2020-0 5-28 00:00: 00 Overview: Formattin g of this note might be [...] for a discussio n of transplan t. [facility] Portal hypertensi on Portal hypertensi on Disease Recurre nce 04-16 00:00: 00 Overview: Formattin g of this note might be [...] provided to low sodium diet (< 2GM). [facility] Screening for malignant neoplasm Screening for malignant neoplasm Disease Active 04-16 00:00: 00 Overview: Formattin g of this note might be different from the original. Cirrhosis , regardles s of etiology, is a risk factor for developme nt of hepatocel lular carcinoma with an annual incidence of 1.5-4.5%. We recommend surveilla nce for HCC with abdominal imaging and alphafeto protein every 6 months. Last Assessmen t & Plan: Formattin g of this note might be different from the original. Cirrhosis , regardles s of etiology, is a risk factor for developme nt of hepatocel lular carcinoma with an annual incidence of 1.5-4.5%. We recommend surveilla nce for HCC with abdominal imaging and alphafeto protein every [address] scan February, reporting 1.3 cm enhancing lesion in the right segment of the liver - posterior ly at the dome. Alpha fetoprote in tumor marker elevated to 19.5 ng/mL on 04/02/21. (see discussio n under Liver Mass) [facility] Hepatitis C Hepatitis C Disease Active 04-16 00:00: 00 Last Assessmen t & Plan: Formattin g [...] treatment at some time in the future. [facility] Liver mass Liver mass Disease Active 04-16 00:00: 00 Last Assessmen t & Plan: Formattin g [...] conferenc e. Further recommend ations to come. [facility] Esophageal varices Esophageal varices Disease Recurre nce 04-16 00:00: [address] [facility] Allergies, Adverse Reactions, Alerts Allergy Name Allergy Type Status Severity Reaction(s) Onset Date Inactive Date Treating Clinician Comments Source Penicill ins Propensi ty to adverse reaction to drug Active 8- 00:00: 00 Kamar Mcmahan LITHIUM Allergy Active High Anaphylaxis 7 00:00: 00 [facility] [place] Propensi ty to adverse reaction s Active Anaphylaxis 05-22 00:00: 00 [facility] NO KNOWN ALLERGIE S Drug Class Active [facility] NO KNOWN ALLERGIE S Allergy Active [facility] Family History Family Member Diagnosis Comments Start Date Stop Date Sourc e Natural brother Liver disease [facility] Natural brother Hepatitis [facility] Natural father Cancer [facility] Natural mother Aneurysm [facility] Paternal aunt Cancer [facility] Maternal aunt Cancer [facility] Paternal uncle Cancer [facility] Social History Social Habit Start Date Stop Date Quantity Comments Source Gender identity 2024-10-12 13:26:34 Identifies as female gender (finding) [facility] History SDOH Alcohol Frequency [facility] History SDOH Alcohol Std Drinks [facility] History SDOH Alcohol Binge [facility] History of tobacco use Cigarette Smoker [facility] ASSERTION Possible [facility] Sexual orientation [facility] History of Social function 2024-10-14 00:00:00 2024-10-14 00:00:00 [facility] Tobacco use and exposure 2024-10-12 00:00:00 2024-10-12 00:00:00 User of smokeless tobacco [facility] Alcohol intake 2024-05-22 00:00:00 2024-05-22 00:00:00 Current drinker of alcohol (finding) [facility] Cigarettes smoked current (pack per day) - Reported 2023-04-12 00:00:00 2023-04-12 00:00:00 [facility] Cigarette pack-years 2023-04-12 00:00:00 2023-04-12 00:00:00 [facility] Alcohol Comment 2021-04-16 00:00:00 2021-04-16 00:00:00 Beer - one daily [facility] Sex assigned at 1960 00:00:1960 00:00:00 [facility] Smoking Status Start Date Stop Date Source Tobacco smoking consumption unknown [facility] Smokes tobacco daily 2024-10-12 00:00:00 [facility] Medications Ordered Medication Name Filled Medication Name Start Date Stop Date Current Medication? Ordering Clinician Indication Dosage Frequency Signature (SIG) Comments Components Source furosemide (Lasix) tablet 40 mg furosemide (Lasix) tablet 40 mg 2023-11 08:00: 00 Yes 40mg 40 mg, Oral, 2 times daily (07/05), First dose on Mon10/16/24 at 0800 Hieu Christopher [facility] lactulose (Chronulac) 10 GM/15ML solution lactulose (Chronulac) 10 GM/15ML solution 2023-11 00:00: 00 11-15 23:59 :00 No 20g [id number] 3D Take 30 mL by mouth in the morning and 30 mL at noon and 30 mL in the evening. Hieu Christopher [facility] omeprazole (PriLOSEC) [address] capsule omeprazole (PriLOSEC) [address] capsule 2023-11 00:00: 00 11-15 23:59 :00 No 40mg Take 1 capsule by mouth in the morning. Take before meals. Do not crush or chew. Hieu Christopher [facility] furosemide (Lasix) 40 MG tablet furosemide (Lasix) 40 MG tablet 2023-11 00:00: 00 11-15 23:59 :00 No 40mg QD Take 1 tablet by mouth 1 time each day. Hieu Christopher [facility] apixaban (Eliquis) 5 MG tablet apixaban (Eliquis) 5 MG tablet 2023-11 00:00: 00 11-15 23:59 :00 No 5mg Q.5D Take 1 tablet by mouth in the morning and 1 tablet in the evening. Hieu Christopher [facility] acetaminoph en-codeine (Tylenol w/ Codeine #3) 300-30 MG tablet acetaminoph en-codeine (Tylenol w/ Codeine #3) 300-30 MG tablet 2023-11 00:00: 00 10-23 23:59 :00 No [id number] 1{tbl} [id number] 3D Take 1 tablet by mouth in the morning and 1 tablet at noon and 1 tablet in the evening. Do all this for 7 days. Hieu Christopher [facility] lisinopril 10 MG tablet lisinopril 10 MG tablet 2023-11 00:00: 00 10-16 00:00 :00 Yes 10mg QD Take 1 tablet by mouth 1 time each day. Hieu Warren OLANZapine (ZyPREXA) 10 MG tablet OLANZapine (ZyPREXA) 10 MG tablet 2023-11 00:00: 00 10-16 00:00 :00 Yes 10mg Take 1 tablet by mouth at bedtime. Hieu Christopher [facility] amLODIPine (Norvasc) 10 MG tablet amLODIPine (Norvasc) 10 MG tablet 2023-11 00:00: 00 10-16 00:00 :00 Yes 10mg QD Take 1 tablet by mouth 1 time each day. Hieu Christopher [facility] apixaban (Eliquis) tablet 5 mg apixaban (Eliquis) tablet 5 mg 2023-11 21:00: 00 Yes 5mg Q.5D 5 mg, Oral, 2 times daily, First dose on 10/13/24 at 2100 Hieu Christopher [facility] furosemide (Lasix) injection 40 mg furosemide (Lasix) injection 40 mg 2023-11 20:45: 00 10-15 17:26 :45 No 40mg Q.5D 40 mg, Intravenou s, 2 times daily, First dose on 10/13/24 at 2045 Hieu Warren OLANZapine (ZyPREXA) tablet 10 mg OLANZapine (ZyPREXA) tablet 10 mg 2023-11 21:00: 00 Yes 10mg 10 mg, Oral, Nightly, First dose on 10/12/24 at 2100 Hieu Warren propranolol (Inderal) tablet 10 mg propranolol (Inderal) tablet 10 mg 2023-11 18:45: 00 Yes 10mg Q.5D 10 mg, Oral, 2 times daily, First dose on 10/12/24 at 1845 Hieu Christopher Epic lactulose (Chronulac) 10 GM/15ML solution 20 g lactulose (Chronulac) 10 GM/15ML solution 20 g 2023-11 18:45: 00 Yes 20g [id number] 3D 20 g, Oral, 3 times daily, First dose on 10/12/24 at 1845 Hieu Christopher Epic pantoprazol e (ProtoNix) EC tablet 40 mg pantoprazol e (ProtoNix) EC tablet 40 mg 2023-11 18:45: 00 Yes 40mg QD 40 mg, Oral, Daily, First dose on 10/12/24 at 1845, Do not crush, chew, or split. Hieu Christopher Epic amLODIPine (Norvasc) tablet 5 mg amLODIPine (Norvasc) tablet 5 mg 2023-11 18:45: 00 10-13 10:38 :33 No 5mg QD 5 mg, Oral, Daily, First dose on 10/12/24 at 1845 Hieu Christopher Epic calcium gluconate 3 g in sodium chloride 0.9 % 100 mL IVPB calcium gluconate 3 g in sodium chloride 0.9 % 100 mL IVPB 2023-11 16:50: 13 Yes 3g 3 g, Intravenou s, Administer over 30 Minutes, As needed, Abnormal Lab Result, For NON-ICU Patients Only, Starting on 10/12/24 at 1650, For Ionized Calcium 1-1.05 mmol/L: Replace with 2 gm Calcium gluconate IVPB over 30 minutes x 1 dose. For Ionized Calcium 0.91 - 0.99 mmol/L: Replace with 3 gm Calcium gluconate IVPB over 30 minutes x 1 dose. Recheck Ionized Calcium level 4 hours after Calcium replacemen t.? Notify if ionized calcium < 0.91 mMol/L prior to replacemen t. *DO NOT replace if patient is on dialysis, temperatur e < 35 Celsius, or serum creatinine >2.0 mg/dL or GFR < 45 mL/min. Hieu Christopher Epic calcium gluconate in NaCl 100mL IVPB 2 g calcium gluconate in NaCl 100mL IVPB 2 g 2023-11 16:50: 13 Yes 2g 2 g, Intravenou s, Administer over 30 Minutes, As needed, Abnormal Lab Result, For NON-ICU Patients Only., Starting on 10/12/24 at 1650, For Ionized Calcium 1-1.05 mmol/L: Replace with 2 gm Calcium gluconate IVPB over 30 minutes x 1 dose. For Ionized Calcium 0.91 - 0.99 mmol/L: Replace with 3 gm Calcium gluconate IVPB over 30 minutes x 1 dose. Recheck Ionized Calcium level 4 hours after Calcium replacemen t.? Notify MD if ionized calcium < 0.91 mMol/L prior to replacemen t. *DO NOT replace if patient is on dialysis, temperatur e < 35 Celsius, or serum creatinine >2.0 mg/dL or GFR < 45 mL/min. Hieu Christopher Epic magnesium oxide (Mag-Ox) tablet 800 mg magnesium oxide (Mag-Ox) tablet 800 mg 2023-11 16:50: 13 Yes 800mg 800 mg, Oral, As needed, Abnormal Lab Result, For NON-ICU Patients Only., Starting on 10/12/24 at 1650, For Magnesium 1.8 - 2.0 mg/dL:? Replace with Magnesium 800 mg PO x 1 dose. For Magnesium 1.5 - 1.7 mg/dL: Replace with Magnesium 800 mg PO every 4 hours x 2 doses. For Magnesium 1.1 - 1.4 mg/dL:? Replace with Magnesium 800 mg PO every 4 hours x 3 doses.? Recheck Magnesium level 4 hours after the end of replacemen t.Notify MD if Magnesium level is < 1.1 mg/dL prior to replacemen t.*Use PO or NJ administra tion unless patient is first 12 hours post-op, active GI bleed, acute arrhythmia s, ischemic bowel or NPO. *DO NOT replace if patient is on dialysis, temperatur e < 35 Celsius, or serum creatinine > 2.0 mg/dL or GFR < 45 mL/min. Hieu Christopher Epic magnesium sulfate IVPB 4 g magnesium sulfate IVPB 4 g 2023-11 16:50: 13 Yes 4g 4 g, Intravenou s, at 25 mL/hr, Administer over 4 Hours, As needed, Abnormal Lab Result, For NON-ICU Patients Only, Starting on 10/12/24 at 1650, For Magnesium 1.8 - 2 mg/dL: Replace with Magnesium Sulfate 1 gram IVPB over 1 hour x 1 dose. For Magnesium 1.5 - 1.7 mg/dL: Replace with Magnesium Sulfate 2 grams IVPB over 2 hours x 1 dose. For Magnesium 1.1 - 1.4 mg/dL:? Replace with Magnesium Sulfate 4 grams IVPB over 4 hours x 1 dose. Recheck Magnesium level 4 hours after the end of replacemen t.Notify MD if Magnesium level is < 1.1 mg/dL prior to replacemen t.*Use PO or NJ administra tion unless patient is first 12 hours post-op, active GI bleed, acute arrhythmia s, ischemic bowel or NPO. *DO NOT replace if patient is on dialysis, temperatur e < 35 Celsius, or serum creatinine > 2.0 mg/dL or GFR < 45 mL/min. Hieu Christopher Epic magnesium sulfate IVPB 2 g magnesium sulfate IVPB 2 g 2023-11 16:50: 13 Yes 2g 2 g, Intravenou s, at 25 mL/hr, Administer over 2 Hours, As needed, Abnormal Lab Result. For NON-ICU Patients Only., Starting on 10/12/24 at 1650, For Magnesium 1.8 - 2 mg/dL: Replace with Magnesium Sulfate 1 gram IVPB over 1 hour x 1 dose. For Magnesium 1.5 - 1.7 mg/dL: Replace with Magnesium Sulfate 2 grams IVPB over 2 hours x 1 dose. For Magnesium 1.1 - 1.4 mg/dL:? Replace with Magnesium Sulfate 4 grams IVPB over 4 hours x 1 dose. Recheck Magnesium level 4 hours after the end of replacemen t.Notify MD if Magnesium level is < 1.1 mg/dL prior to replacemen t.*Use PO or NJ administra tion unless patient is first 12 hours post-op, active GI bleed, acute arrhythmia s, ischemic bowel or NPO. *DO NOT replace if patient is on dialysis, temperatur e < 35 Celsius, or serum creatinine > 2.0 mg/dL or GFR < 45 mL/min. Hieu Christopher Epic magnesium sulfate in D5W IVPB 1 g magnesium sulfate in D5W IVPB 1 g 2023-11 16:50: 13 Yes 1g 1 g, Intravenou s, at 100 mL/hr, Administer over 1 Hours, As needed, Abnormal Lab Result, For NON-ICU Patients Only., Starting on 10/12/24 at 1650, For Magnesium 1.8 - 2 mg/dL: Replace with Magnesium Sulfate 1 gram IVPB over 1 hour x 1 dose. For Magnesium 1.5 - 1.7 mg/dL: Replace with Magnesium Sulfate 2 grams IVPB over 2 hours x 1 dose. For Magnesium 1.1 - 1.4 mg/dL:? Replace with Magnesium Sulfate 4 grams IVPB over 4 hours x 1 dose. Recheck Magnesium level 4 hours after the end of replacemen t.Notify MD if Magnesium level is < 1.1 mg/dL prior to replacemen t.*Use PO or NJ administra tion unless patient is first 12 hours post-op, active GI bleed, acute arrhythmia s, ischemic bowel or NPO. *DO NOT replace if patient is on dialysis, temperatur e < 35 Celsius, or serum creatinine > 2.0 mg/dL or GFR < 45 mL/min. Hieu Christopher Epic sodium phosphates 30 mmol in sodium chloride 0.9 % 100 mL IVPB sodium phosphates 30 mmol in sodium chloride 0.9 % 100 mL IVPB 2023-11 16:50: 13 Yes 30mmol 30 mmol, Intravenou s, Administer over 4 Hours, As needed, Abnormal Lab Result, For NON-ICU Patients Only, Starting on 10/12/24 at 1650, Evaluate Potassium, Phosphorou s, and Sodium level prior to replacemen t.Phosphor ous IVPB replacemen t when K > 3.9 mEq/L: (For PO or [place] replacemen t option, see orders for potassium phosphate- sodium phosphate oral packet.) For phosphorou s 2 - 2.4 mg/dL and K > 3.9 mEq/L: Replace with Sodium Phosphate 15 mmol IVPB over 4 hrs. For phosphorou s 1.6 - 1.9 mg/dL and K > 3.9 mEq/L: Replace with Sodium Phosphate 30 mmol IVPB over 4 hrs. Recheck phosphorou s level 4 hours after replacemen t complete.N otify MD if Phosphorou s level < 1.6 mg/dL or Na > 148 mEq/L prior to replacemen t. *Use PO or [place] administra tion unless patient is first 12 hours post-op, active GI bleed, acute arrhythmia s, ischemic bowel or NPO. *DO NOT replace if patient is on dialysis, temperatur e < 35 Celsius, or serum creatinine > 2.0 mg/dL or GFR < 45 mL/min. Memoria l [facility] Epic sodium phosphates 15 mmol in sodium chloride 0.9 % 100 mL IVPB sodium phosphates 15 mmol in sodium chloride 0.9 % 100 mL IVPB 2023-11 16:50: 13 Yes 15mmol 15 mmol, Intravenou s, Administer over 4 Hours, As needed, Abnormal Lab Result, For NON-ICU Patients Only, Starting on 10/12/24 at 1650, Evaluate Potassium, Phosphorou s, and Sodium level prior to replacemen t.Phosphor ous IVPB replacemen t when K > 3.9 mEq/L: (For PO or [place] replacemen t option, see orders for potassium phosphate- sodium phosphate oral packet.) For phosphorou s 2 - 2.4 mg/dL and K > 3.9 mEq/L: Replace with Sodium Phosphate 15 mmol IVPB over 4 hrs. For phosphorou s 1.6 - 1.9 mg/dL and K > 3.9 mEq/L: Replace with Sodium Phosphate 30 mmol IVPB over 4 hrs. Recheck phosphorou s level 4 hours after replacemen t complete.N otify MD if Phosphorou s level < 1.6 mg/dL or Na > 148 mEq/L prior to replacemen t. *Use PO or [place] administra tion unless patient is first 12 hours post-op, active GI bleed, acute arrhythmia s, ischemic bowel or NPO. *DO NOT replace if patient is on dialysis, temperatur e < 35 Celsius, or serum creatinine > 2.0 mg/dL or GFR < 45 mL/min. Memoria l [facility] Epic Potassium Phosphates 30 mmol in sodium chloride 0.9 % 100 mL infusion Potassium Phosphates 30 mmol in sodium chloride 0.9 % 100 mL infusion 2023-11 16:50: 13 Yes 30mmol 30 mmol, Intravenou s, Administer over 4 Hours, As needed, Abnormal Lab Result, For NON-ICU Patients Only, Starting on 10/12/24 at 1650, Potassium and Phosphorou s replacemen t:For K 3.5 - 3.9 mEq/L AND phosphorou s 2.0 - 2.4 mg/dL: Replace with Potassium Phosphate 15 mMol IVPB over 4 hours. For K 3.1 - 3.4 mEq/L AND phosphorou s 2.0 - 2.4 mg/dL: Replace with KCL 20 meq PO/NJ (or IVPB over 2 hours) followed by Potassium Phosphate 15 mMol IVPB over 4 hours. For K 3.1 - 3.9 mEq/L AND phosphorou s 1.6 - 1.9 mg/dL: Replace with Potassium Phosphate 30 mMol IVPB over 4 hours. Recheck Potassium and Phosphorou s level 4 hours after replacemen t complete. Notify MD for K < 3.1 mEq/L or Phosphorou s < 1.6 mg/dL prior to replacemen t.*Use PO or [place] administra tion unless patient is first 12 hours post-op, active GI bleed, acute arrhythmia s, ischemic bowel or NPO. *DO NOT replace if patient is on dialysis, temperatur e < 35 Celsius, or serum creatinine > 2.0 mg/dL or GFR < 45 mL/min. Hieu Warren potassium phosphates 15 mmol in sodium chloride 0.9 % 100 mL infusion potassium phosphates 15 mmol in sodium chloride 0.9 % 100 mL infusion 2023-11 16:50: 13 Yes 15mmol 15 mmol, Intravenou s, Administer over 4 Hours, As needed, PRN Abnormal Lab Result, For NON-ICU Patients Only., Starting on 10/12/24 at 1650, Potassium and Phosphorou s replacemen t:For K 3.5 - 3.9 mEq/L AND phosphorou s 2.0 - 2.4 mg/dL: Replace with Potassium Phosphate 15 mMol IVPB over 4 hours. For K 3.1 - 3.4 mEq/L AND phosphorou s 2.0 - 2.4 mg/dL: Replace with KCL 20 meq PO/NJ (or IVPB over 2 hours) followed by Potassium Phosphate 15 mMol IVPB over 4 hours. For K 3.1 - 3.9 mEq/L AND phosphorou s 1.6 - 1.9 mg/dL: Replace with Potassium Phosphate 30 mMol IVPB over 4 hours. Recheck Potassium and Phosphorou s level 4 hours after replacemen t complete. Notify MD for K < 3.1 mEq/L or Phosphorou s < 1.6 mg/dL prior to replacemen t.*Use PO or [place] administra tion unless patient is first 12 hours post-op, active GI bleed, acute arrhythmia s, ischemic bowel or NPO. *DO NOT replace if patient is on dialysis, temperatur e < 35 Celsius, or serum creatinine > 2.0 mg/dL or GFR < 45 mL/min. Maximum rate for peripheral administra tion 40 mL/hr, maximum rate for central line administra tion 100 mL/hr. Memoria l [place] Epic potassium & sodium phosphates (Phos-NaK) 280-160-250 MG packet 2 packet potassium & sodium phosphates (Phos-NaK) 280-160-250 MG packet 2 packet 2023-11 16:50: 13 Yes 2{packe t} 2 packet, Oral, As needed, Abnormal Lab Result, For NON-ICU Patients Only, Starting on 10/12/24 at 1650, Oral Phosphorou s replacemen t when K is 3.5 - 4.5 mEq/L:(If the K is < 3.5 mEq/L, refer to IVPB Potassium Phosphate orders for replacemen t)Evaluate Potassium, Phosphorou s, and Sodium level prior to replacemen t. For Phosphorou s 2 - 2.4 mg/dL and K 3.5 - 4.5 mEq/L: Replace with 2 packets PO x 1 dose For Phosphorou s 1.6 - 1.9 mg/dL and K 3.5 - 4.5 mEq/L: Replace with 2 packets PO every 4 hours x 2 doses Recheck Potassium and Phosphorou s level 4 hours after replacemen t.Notify MD if PO4 level is <1.6mg/dL prior to replacemen t.*Use PO or [place] administra tion unless patient is first 12 hours post-op, active GI bleed, acute arrhythmia s, ischemic bowel or NPO. *DO NOT replace if patient is on dialysis, temperatur e < 35 Celsius, or serum creatinine > 2.0 mg/dL or GFR < 45 mL/min. Memoria l [place] Epic potassium chloride IVPB 10 mEq potassium chloride IVPB 10 mEq 2023-11 16:50: 13 Yes 10meq 10 mEq, Intravenou s, at 100 mL/hr, Administer over 1 Hours, As needed, Abnormal Lab Result, For NON-ICU Patients Only, Starting on 10/12/24 at 1650, Evaluate Potassium and Phosphorou s level prior to replacemen t.Potassiu m chloride Peripheral infusion concentrat ion = 0.1 mEq/mLAdmi nister each KCL 10 mEq IVPB dose over 1 hour. Potassium replacemen t; phosphorou s > 2.4 mg/dL or phosphorou s level not available: For K = 3.5 - 3.9 mEq/L: Replace with KCL 20 mEq IVPB over 2 hours.? Recheck Potassium with next scheduled lab. For K = 3.1 - 3.4 mEq/L: Replace with KCL 40 mEq IVPB over 4 hours.? Recheck Potassium 4 hours after replacemen t. Potassium and Phosphorou s IV Replacemen t (See Potassium Phosphate orders): For K = 3.5 - 3.9 mEq/L AND Phosphorou s 2 - 2.4 mg/dL:? Replace with Potassium Phosphate 15 mMol IVPB over 4 hours. For K = 3.1 - 3.4 mEq/L AND Phosphorou s 2 - 2.4 mg/dL: Replace with KCL 20 mEq? IVPB over 2 hours followed by Potassium Phosphate 15 mMol IVPB over 4 hours.? For K = 3.1 - 3.9 mEq/L AND Phosphorou s 1.6 - 1.9 mg/dL: Replace with Potassium Phosphate 30 mMol IVPB over 4 hours.? Recheck Potassium and Phosphorou s levels 4 hours after replacemen t complete. Notify MD for K < 3.1 mEq/L or Phosphorou s < 1.6 mg/dL prior to replacemen t.*Use PO or NJ administra tion unless patient is first 12 hours post-op, active GI bleed, acute arrhythmia s, ischemic bowel or NPO. *DO NOT replace if patient is on dialysis, temperatur e < 35 Celsius, or serum creatinine > 2.0 mg/dL or GFR < 45 mL/min. Hieu Warren Potassium chloride solution 20 mEq Potassium chloride solution 20 mEq 2023-11 16:50: 13 Yes 20meq 20 mEq, Nasogastri c, As needed, Abnormal Lab Result, For NON-ICU Patients Only, Starting on 10/12/24 at 1650, Evaluate Potassium and Phosphorou s level prior to replacemen t. Potassium replacemen t; phosphorou s > 2.4 mg/dL or phosphorou s level not available: For K = 3.5 - 3.9 mEq/L: Replace with KCL 20 mEq.? Recheck Potassium with next scheduled lab. For K = 3.1 - 3.4 mEq/L: Replace with KCL 40 mEq.? Recheck Potassium 4 hours after replacemen t. Potassium and Phosphorou s Replacemen t (See Phosphate replacemen t orders):Fo r K = 3.5 - 4.5 mEq/L AND Phosphorou s 2 - 2.4 mg/dL:? Replace with 2 packets of Potassium phosphate/ sodium phosphate oral powder x 1 dose. For K = 3.5 - 4.5 mEq/L AND Phosphorou s 1.6 - 1.9 mg/dL:? Replace with 2 packets of Potassium phosphate/ sodium phosphate oral powder Q4H x 2 doses. For K = 3.1 - 3.4 mEq/L AND Phosphorou s 2 - 2.4 mg/dL: Replace with KCL 20 mEq PO/NJ AND Potassium Phosphate 15 mMol IVPB over 4 hours.? For K = 3.1 - 3.4 mEq/L AND Phosphorou s 1.6 - 1.9 mg/dL: Replace with Potassium Phosphate 30 mMol IVPB over 4 hours.? Recheck Potassium and Phosphorou s levels 4 hours after replacemen t complete. Notify MD for K < 3.1 mEq/L or Phosphorou s < 1.6 mg/dL prior to replacemen t. *Use PO or NJ administra tion unless patient is first 12 hours post-op, active GI bleed, acute arrhythmia s, ischemic bowel or NPO. *DO NOT replace if patient is on dialysis, temperatur e < 35 Celsius, or serum creatinine > 2.0 mg/dL or GFR < 45 mL/min. Hieu Warren potassium chloride CR (Klor-Con M20) ER tablet 40 mEq potassium chloride CR (Klor-Con M20) ER tablet 40 mEq 2023-11 16:50: 12 Yes 40meq 40 mEq, Oral, As needed, Abnormal Lab Result, NON-ICU Patients Only, Starting on 10/12/24 at 1650, Evaluate Potassium and Phosphorou s level prior to replacemen t. Potassium replacemen t; phosphorou s > 2.4 mg/dL or phosphorou s level not available: For K = 3.5 - 3.9 mEq/L: Replace with KCL 20 mEq. Recheck Potassium with next scheduled lab. For K = 3.1 - 3.4 mEq/L: Replace with KCL 40 mEq.? Recheck Potassium 4 hours after replacemen t. Potassium and Phosphorou s Replacemen t: For K = 3.5 - 4.5 mEq/L AND Phosphorou s 2 - 2.4 mg/dL:? Replace with 2 packets of Potassium phosphate/ sodium phosphate oral powder x 1 dose. For K = 3.5 - 4.5 mEq/L AND Phosphorou s 1.6 - 1.9 mg/dL:? Replace with 2 packets of Potassium phosphate/ sodium phosphate oral powder Q4H x 2 doses. For K = 3.1 - 3.4 mEq/L AND Phosphorou s 2 - 2.4 mg/dL: Replace with KCL 20 mEq PO/NJ AND Potassium Phosphate 15 mMol IVPB over 4 hours. For K = 3.1 - 3.4 mEq/L AND Phosphorou s 1.6 - 1.9 mg/dL: Replace with Potassium Phosphate 30 mMol IVPB over 4 hours. Recheck Potassium and Phosphorou s levels 4 hours after replacemen t complete.N otify MD for K < 3.1 mEq/L or Phosphorou s < 1.6 mg/dL prior to replacemen t. *Use PO or NJ administra tion unless patient is first 12 hours post-op, active GI bleed, acute arrhythmia s, ischemic bowel or NPO. Do Not Crush the ER tablets. DO NOT replace if patient is on dialysis, temperatur e < 35 Celsius, or serum creatinine > 2.0 mg/dL or GFR < 45 mL/min. DO NOT CRUSH.? For patients able to take medication s orally or via feeding tube >/= 14 Tongan, may dissolve each 20 mEq tablet in 4 oz of water.? Allow about 2 minutes for the tablets to disintegra te.? Stir before giving to prepare slurry and administer .? Please exclude patient's with feeding tube less than 14 Tongan (Dobhoff, J-tube, etc) and pediatric and patients. Do not crush or chew. Hieu Warren potassium chloride CR (Klor-Con M20) ER tablet 20 mEq potassium chloride CR (Klor-Con M20) ER tablet 20 mEq 2023-11 16:50: 12 Yes 20meq 20 mEq, Oral, As needed, Abnormal Lab Result, For NON-ICU Patients Only, Starting on 10/12/24 at 1650, Evaluate Potassium and Phosphorou s level prior to replacemen t. Potassium replacemen t; phosphorou s > 2.4 mg/dL or phosphorou s level not available: For K = 3.5 - 3.9 mEq/L: Replace with KCL 20 mEq. Recheck Potassium with next scheduled lab. For K = 3.1 - 3.4 mEq/L: Replace with KCL 40 mEq.? Recheck Potassium 4 hours after replacemen t. Potassium and Phosphorou s Replacemen t: For K = 3.5 - 4.5 mEq/L AND Phosphorou s 2 - 2.4 mg/dL:? Replace with 2 packets of Potassium phosphate/ sodium phosphate oral powder x 1 dose. For K = 3.5 - 4.5 mEq/L AND Phosphorou s 1.6 - 1.9 mg/dL:? Replace with 2 packets of Potassium phosphate/ sodium phosphate oral powder Q4H x 2 doses. For K = 3.1 - 3.4 mEq/L AND Phosphorou s 2 - 2.4 mg/dL: Replace with KCL 20 mEq PO/NJ AND Potassium Phosphate 15 mMol IVPB over 4 hours. For K = 3.1 - 3.4 mEq/L AND Phosphorou s 1.6 - 1.9 mg/dL: Replace with Potassium Phosphate 30 mMol IVPB over 4 hours. Recheck Potassium and Phosphorou s levels 4 hours after replacemen t complete.N otify MD for K < 3.1 mEq/L or Phosphorou s < 1.6 mg/dL prior to replacemen t. *Use PO or NJ administra tion unless patient is first 12 hours post-op, active GI bleed, acute arrhythmia s, ischemic bowel or NPO. Do Not Crush the ER tablets. DO NOT replace if patient is on dialysis, temperatur e < 35 Celsius, or serum creatinine > 2.0 mg/dL or GFR < 45 mL/min. DO NOT CRUSH.? For patients able to take medication s orally or via feeding tube >/= 14 Tongan, may dissolve each 20 mEq tablet in 4 oz of water.? Allow about 2 minutes for the tablets to disintegra te.? Stir before giving to prepare slurry and administer .? Please exclude patient's with feeding tube less than 14 Tongan (Dobhoff, J-tube, etc) and pediatric and patients. Do not crush or chew. Hieu Warren furosemide (Lasix) injection 40 mg furosemide (Lasix) injection 40 mg 2023-11 14:10: 00 Yes 40mg 40 mg, Intravenou s, Once, On 10/12/24 at 1410, For 1 dose Hieu Warren sodium chloride (NS) 0.9 % flush 10 mL sodium chloride (NS) 0.9 % flush 10 mL 2023-11 12:15: 19 Yes 10mL [Order 1 Start] Name: Insert peripheral IV Signed Summary: Once, On 10/12/24 at 1216, For 1 occurrence [Order 1 End] [Order 2 Start] Name: Saline lock IV Signed Summary: Once, On 10/12/24 at 1216, For 1 occurrence [Order 2 End] [Order 3 Start] Name: sodium chloride (NS) 0.9 % flush 10 mL Signed Summary: 10 mL, Intravenou s, As needed, line care, Starting on 10/12/24 at 1215 [Order 3 End] Hieu Warren amLODIPine 5 mg tablet 2023-11 00:00: 00 10-22 05:59 :00 Yes [id number] 5mg Take 1 tablet by mouth in the morning for 30 days. [facility] OLANZapine 10 mg tablet 2023-11 00:00: 00 10-22 05:59 :00 Yes [id number] 10mg Take 1 tablet by mouth in the morning for 30 days. [facility] pantoprazol e 40 mg EC tablet 2023-11 00:00: 00 10-22 05:59 :00 Yes [id number] 40mg Take 1 tablet by mouth every morning for 30 days. [facility] cefdinir 300 mg capsule 2023-11 14:13: 47 09-20 00:00 :00 No 300mg Take 1 capsule by mouth in the morning and 1 capsule in the evening. [facility] metroNIDAZO LE 500 mg tablet 2023-11 14:13: 47 09-20 00:00 :00 No 500mg Take 1 tablet by mouth every 8 (eight) hours. [facility] apixaban (ELIQUIS) 5 mg tablet 2023-11 14:13: 47 09-20 00:00 :00 No 5mg Take 1 tablet by mouth in the morning and 1 tablet in the evening. [facility] sodium chloride tablet 1 g 2023-11 13:15: 00 Yes 1g 1 g, Oral, TID MEALS, First dose on Mon09/20/24 at 0815, Until Discontinu ed, Routine [facility] propranoloL 10 mg tablet 2023-11 00:00: 00 10-21 05:59 :00 Yes [id number] 10mg Take 1 tablet by mouth in the morning and 1 tablet in the evening. Do all this for 30 days. [facility] lactulose 10 gram/15 mL oral solution 2023-11 00:00: 00 10-21 05:59 :00 Yes [id number] 30mL Take 30 mL by mouth in the morning and 30 mL in the evening. Do all this for 30 days. [facility] furosemide 40 mg tablet 2023-11 00:00: 00 10-21 05:59 :00 Yes [id number] 40mg Take 1 tablet by mouth in the morning for 30 days. [facility] doxycycline hyclate 100 mg capsule 2023-11 00:00: 00 09-28 05:59 :00 Yes [id number] 100mg Take 1 capsule by mouth every 12 (twelve) hours for 7 days. [facility] sodium chloride 1,000 mg tablet 2023-11 00:00: 00 09-28 05:59 :00 Yes [id number] 1g Take 1 tablet by mouth in the morning and 1 tablet at noon and 1 tablet in the evening. Take with meals. Do all this for 7 days. [facility] OLANZapine (ZyPREXA) tablet 10 mg 2023-11 14:00: 00 Yes 10mg 10 mg, Oral, DAILY, First dose (after last modificati on) on Mon09/19/24 at 0900, Until Discontinu ed, Routine [facility] nicotine (NICODERM) 7 mg/24 hr patch 1 Patch 2023-11 11:00: 00 09-20 22:00 :45 No 1{patch } 1 Patch, Topical, Administer over 24 Hours, Q24H, First dose on Mon09/19/24 at 0600, Until Discontinu ed, Routine [facility] LORazepam (ATIVAN) injection 0.5 mg 2023-11 10:45: 00 09-19 10:07 :00 No .5mg 0.5 mg, Slow IV Push, ONCE, 1 dose, On Mon09/19/24 at 0545, Routine [facility] phytonadion e (vitamin K1) (MEPHYTON) tablet 5 mg 2023-11 00:30: 00 09-20 22:00 :45 No 5mg 5 mg, Oral, DAILY, 3 doses, First dose on Mon09/18/24 at 1930, Last dose on Mon09/20/24 at 0900, Routine [facility] ziprasidone (GEODON) injection 20 mg 2023-11 00:30: 00 09-19 00:56 :00 No 20mg 20 mg, Intramuscu lar, ONCE, 1 dose, On Mon09/18/24 at 1930, Routine [facility] LORazepam (ATIVAN) injection 2 mg 2023-11 23:00: 00 09-18 22:35 :00 No 2mg 2 mg, Slow IV Push, ONCE, 1 dose, On Mon09/18/24 at 1800, Routine [facility] ziprasidone (GEODON) injection 10 mg 2023-11 20:15: 00 09-18 19:57 :00 No 10mg 10 mg, Intramuscu lar, ONCE, 1 dose, On Mon09/18/24 at 1515, Routine [facility] propranoloL (INDERAL) tablet 10 mg 2023-11 13:00: 00 Yes 10mg 10 mg, Oral, BID, First dose on Mon09/18/24 at 0800, Until Discontinu ed, Routine [facility] pantoprazol e (PROTONIX) EC tablet 40 mg 2023-11 11:00: 00 Yes 40mg 40 mg, Oral, QAM-0600, First dose on Mon09/18/24 at 0600, Until Discontinu ed, Routine [facility] cefTRIAXone (ROCEPHIN) 1,000 mg in water for injection, sterile 10 mL IV Push 2023-11 10:00: 00 09-20 22:00 :45 No 1000mg 1,000 mg, Intravenou s, Q24H ABX, 10 doses, First dose on Mon09/18/24 at 0500, Last dose on Mon09/27/24 at 0500, 10 mL, Reason for Anti-Infec tive: Documented Infection, Documented Infection Site: Skin / Soft Tissue, Duration of Therapy: 10 days [facility] OLANZapine (ZyPREXA) tablet 10 mg 2023-11 08:30: 00 09-18 13:38 :27 No 10mg 10 mg, Oral, DAILY, First dose (after last modificati on) on Mon09/18/24 at 0330, Until Discontinu ed, Routine [facility] amLODIPine (NORVASC) tablet 5 mg 2023-11 08:00: 00 Yes 5mg 5 mg, Oral, DAILY, First dose on Mon09/18/24 at 0300, Until Discontinu ed, Routine [facility] lactulose (CEPHULAC) 10 gram/15 mL oral solution 30 mL 2023-11 02:00: 00 Yes 30mL 30 mL, Oral, BID, First dose on Mon09/17/24 at 2100, Until Discontinu ed, Routine [facility] doxycycline hyclate (Vibramycin ) capsule 100 mg 2023-11 01:15: 00 09-27 23:59 :00 Yes 100mg 100 mg, Oral, Q12HA2, 20 doses, First dose on Mon09/17/24 at 2014, Last dose on Mon09/27/24 at 0600, OBI, Reason for Anti-Infec tive: Documented Infection, Documented Infection Site: Skin / Soft Tissue, Duration of Therapy: 10 days [facility] furosemide (LASIX) injection 20 mg 2023-11 01:15: 00 09-20 22:00 :45 No 20mg 20 mg, Slow IV Push, BIDPC, First dose on Mon09/17/24 at 2014, Until Discontinu ed, Routine [facility] ondansetron (ZOFRAN (PF)) injection 4 mg 2023-11 00:56: 30 09-20 22:00 :45 No 4mg [facility] acetaminoph en (TYLENOL) tablet 650 mg 2023-11 00:56: 22 09-20 22:00 :45 No 650mg 650 mg, Oral, Q6HPRN, Starting on Mon09/17/24 at 1956, Until Mon09/20/24 at 1700, Routine, Pain (scale 1-3), Temp > 38 C [facility] piperacilli n-tazobacta m (ZOSYN) 3.375 g in NaCl 0.9% (NS) 100 mL MINI-BAG 2023-11 00:45: 00 09-18 03:03 :00 No 3.375g 3.375 g, IV Piggyback, ONCE, 1 dose, On Mon09/17/24 at 1945, Administer over 30 Minutes, 100 mL, Reason for Anti-Infec tive: Empiric Therapy for Suspected Infection, Empiric Therapy Site: Abdominal, Duration of therapy: Once (ED) [facility] iopamidol (ISOVUE 370-500 mL) injection 75 mL 2023-11 0 00:45: 00 09-18 00:45 :00 No [id number] 75mL 75 mL, Intravenou s, ONCE, 1 dose, On Mon09/17/24 at 1945, Routine [facility] omeprazole 40 mg capsule,del ayed release 8- 00:00: 00 Yes mg Kamar Mcmahan furosemide 40 mg tablet 8- 00:00: 00 Yes 1mg Kamar Mcmahan ibuprofen 800 mg tablet - 00:00: 00 Yes 1mg Kamar Mcmahan amlodipine 10 mg tablet - 00:00: 00 Yes 1mg Kamar Mcmahan lisinopril 10 mg tablet 06-28 00:00: 00 Yes 1mg Kamar Mcmahan Ventolin HFA 90 mcg/actuati on aerosol inhaler 8- 00:00: 00 Yes mcg/act uation Kamar Mcmahan olanzapine 10 mg tablet 06-10 00:00: 00 Yes mg Kamar Mcmahan cyclobenzap rine 5 mg tablet - 00:00: 00 Yes mg Kamar Mcmahan Ventolin HFA 90 mcg/actuati on aerosol inhaler - 00:00: 00 Yes mcg/act uation Kamar Mcmahna amlodipine 10 mg tablet 05-19 00:00: 00 Yes mg Kamar Mcmahan lisinopril 10 mg tablet 05-19 00:00: 00 Yes mg Kamar Mcmahan TAKE 1 TABLET BY MOUTH EVERYDAY AT BEDTIME - 00:00: 00 Yes Kamar Mcmahan furosemide 40 mg tablet 2- 00:00: 00 Yes mg Kamar Mcmahan ibuprofen 800 mg tablet 2- 00:00: 00 Yes mg Kamar Mcmahan omeprazole 40 mg capsule,del ayed release - 00:00: 00 Yes mg Kamar Mcmahan promethazin e-DM 6.25 mg-15 mg/5 mL oral syrup 2- 00:00: 00 Yes mg/5 mL Kamar Mcmahan Ventolin HFA 90 mcg/actuati on aerosol inhaler - 00:00: 00 Yes mcg/act uation Kamar Mcmahan INHALE 1 TO 2 PUFFS EVERY 6 HOURS NEEDED. 01-10 00:00: 00 Yes [id number] Kamar Mcmahan TAKE 30 ML BY MOUTH 2 TIMES A DAY NEEDED 01-10 00:00: 00 Yes 1015 Kamar Mcmahan TAKE 1 TABLET BY MOUTH EVERY DAY - 00:00: 00 Yes 50 Kamar Mcmahan TAKE 1 TABLET BY MOUTH EVERY DAY 01-10 00:00: 00 Yes 100 Kamar Mcmahan TAKE 1 TABLET BY MOUTH EVERY DAY 01-10 00:00: 00 Yes 10 Kamar Mcmahan naltrexone 50 mg tablet 12-12 00:00: 00 Yes mg Kamar Mcmahan OLANZAPINE 10 MG TABS 2022-11 00:00: 00 Yes Kamar Mcmahan TAKE 1 TABLET ONCE DAILY. 2022-11 2- 00:00: 00 03-14 00:00 :00 No 50 Kamar Mcmahan TAKE 1 TABLET BY MOUTH EVERY DAY 2022-11 2 00:00: 00 03-14 00:00 :00 No 50 Kamar Mcmahan TAKE 1 TABLET BY MOUTH EVERY DAY 2022-11 2 00:00: 00 03-14 00:00 :00 No 40 Kamar Mcmahan TAKE 1 CAPSULE BY MOUTH EVERY DAY IN THE MORNING 2022-11 2 00:00: 00 03-14 00:00 :00 No 40 Kamar Mcmahan TAKE 1 CAPSULE BY MOUTH EVERY DAY IN THE MORNING 2022-11 2- 00:00: 00 03-14 00:00 :00 No 40 Kamar Mcmahan TAKE 1 TABLET BY MOUTH EVERY DAY 2022-11 2- 00:00: 00 03-14 00:00 :00 No 50 Kamar Mcmahan CIPROFLOXAC IN HYDROCHLORI DE 500 MG TABS 2022-11- 00:00: 00 Yes Kamar Mcmahan TAKE 1 TABLET BY MOUTH EVERY DAY 2022-11 0-11 00:00: 00 03-14 00:00 :00 No 10 Kamar Mcmahan TAKE 1 TABLET EVERY 8 HOURS WITH FOOD NEEDED. 06-07 00:00: 00 03-14 00:00 :00 No 800 Kamar Mcmahan TAKE 1 TABLET BY MOUTH EVERY DAY 06-07 00:00: 00 03-14 00:00 :00 No 40 Kamar Mcmahan TAKE 1 CAPSULE DAILY WITH A MEAL. 06-06 00:00: 00 03-14 00:00 :00 No 200 Kamar Mcmahan spironolact one (ALDACTONE) 50 MG tablet 06-05 00:00: 00 Yes Other ascites TAKE 1 TABLET BY MOUTH EVERY MORNING FOR 30 DAYS [facility] TAKE 1 CAPSULE BY MOUTH EVERY DAY IN THE MORNING 06-01 00:00: 00 Yes 40 Kamar Mcmahan OLANZAPINE 10 MG TABS 05-30 00:00: 00 Yes Kamar Mcmahan ibuprofen (ADVIL,MOTR IN) 800 MG tablet 05-10 00:00: 00 Yes 800mg [id number] 3D Take 1 tablet (800 mg total) by mouth 3 (three) times daily. [facility] TAKE 1 TABLET BY MOUTH EVERY DAY 05-08 00:00: 00 Yes Kamar Mcmahan TAKE 1 TABLET BY MOUTH EVERY DAY 05-08 00:00: 00 03-14 00:00 :00 No 100 Kamar Mcmahan TAKE 1 TABLET BY MOUTH EVERY DAY 05-08 00:00: 00 03-14 00:00 :00 No 10 Kamar Mcmahan TAKE 1 CAPSULE BY MOUTH EVERY DAY IN THE MORNING 05-08 00:00: 00 03-14 00:00 :00 No 40 Kamar Mcmahan IBUPROFEN 800 MG TABS 05-03 00:00: 00 Yes Kamar Mcmahan albuterol HFA (VENTOLIN HFA) 90 mcg/actuati on inhaler 05-03 00:00: 00 Yes SMARTSIG:V ia Inhaler [facility] SPIRONOLACT ONE 50 MG TABS 04-27 00:00: 00 Yes Kamar Mcmahan FUROSEMIDE 40 MG TABS 04-27 00:00: 00 Yes Kamar Mcmahan furosemide (LASIX) 40 MG tablet 04-27 00:00: 00 04-26 23:59 :00 No 40mg QD Take 1 tablet (40 mg total) by mouth in the morning. [facility] spironolact one (ALDACTONE) 50 MG tablet 04-27 00:00: 00 06-05 00:00 :00 No Other ascites 50mg QD Take 1 tablet (50 mg total) by mouth in the morning for 30 days. [facility] spironolact one (ALDACTONE) 50 MG tablet 04-20 00:00: 00 04-27 00:00 :00 No Other ascites 50mg QD Take 1 tablet (50 mg total) by mouth in the morning for 30 days. [facility] spironolact one (ALDACTONE) 50 MG tablet 04-04 00:00: 00 04-20 00:00 :00 No Other ascites 50mg QD Take 1 tablet (50 mg total) by mouth in the morning for 90 days. [facility] lactulose (CHRONULAC) 10 gram/15 mL solution 03-30 00:00: 00 Yes QD Take by mouth daily. [facility] furosemide (LASIX) 40 MG tablet 03-30 00:00: 00 04-28 00:00 :00 No 40mg QD Take 1 tablet (40 mg total) by mouth in the morning. [facility] PROMETHAZIN E HYDROCHLORI DE/DEXTROME THORPHAN HYDROBROMID E 6.25-15 MG/5ML SYRP 03-13 00:00: 00 Yes Kamar Mcmahan INHALE 1 TO 2 PUFFS EVERY 6 HOURS NEEDED. 03-13 00:00: 00 03-14 00:00 :00 No [id number] Kamar Mcmahan TAKE 1 TABLET BY MOUTH EVERYDAY AT BEDTIME 03-07 00:00: 00 Yes Kamar Mcmahan LACTULOSE 10 GM/15ML SOLN 02-28 00:00: 00 Yes Kamar Mcmahan OMEPRAZOLE 40 MG CPDR 02-28 00:00: 00 Yes Kamar Mcmahan AMLODIPINE BESYLATE 10 MG TABS 02-28 00:00: 00 Yes Kamar Mcmahan FUROSEMIDE 40 MG TABS 02-28 00:00: 00 Yes Kamar Mcmahan TAKE 1 CAPSULE DAILY WITH A MEAL. 02-28 00:00: 00 03-14 00:00 :00 No 200 Kamar Mcmahan TAKE 1 TABLET EVERY 8 HOURS WITH FOOD NEEDED. 02-28 00:00: 00 03-14 00:00 :00 No 800 Kamar Mcmahan APPLY 2 GM ON THE SKIN EVERY 8 HOURS NEEDED APPLY TO AFFECTED AREAS 02-28 00:00: 00 03-14 00:00 :00 No 3 Kamar Mcmahan TAKE 1 TABLET DAILY. 02-28 00:00: 00 03-14 00:00 :00 No 100 Kamar Mcmahan TAKE 1 TABLET EVERY 8 HOURS WITH FOOD NEEDED. 02-14 00:00: 00 03-14 00:00 :00 No 800 Kamar Mcmahan TAKE 1 TABLET BY MOUTH EVERY DAY 02-07 00:00: 00 Yes Kamar Mcmahan losartan (COZAAR) 100 MG tablet 02-07 00:00: 00 Yes 100mg QD Take 1 tablet (100 mg total) by mouth daily. [facility] TAKE 30 ML BY MOUTH 2 TIMES A DAY NEEDED 02-07 00:00: 00 03-14 00:00 :00 No 1015 Kamar Mcmahan TAKE 1 TABLET BY MOUTH EVERY DAY 02-07 00:00: 00 03-14 00:00 :00 No 50 Kamar Mcmahan TAKE 1 TABLET BY MOUTH EVERY DAY 02-07 00:00: 00 03-14 00:00 :00 No 40 Kamar Mcmahan TAKE 1 TABLET DAILY. 02-07 00:00: 00 03-14 00:00 :00 No 100 Kamar Mcmahan APPLY 2 GM ON THE SKIN EVERY 8 HOURS NEEDED APPLY TO AFFECTED AREAS 02-07 00:00: 00 03-14 00:00 :00 No 3 Kamar Mcmahan TAKE 1 CAPSULE DAILY WITH A MEAL. 02-07 00:00: 00 03-14 00:00 :00 No 200 Kamar Mcmahan TAKE 5 ML EVERY 4 TO 6 HOURS NEEDED. 02-07 00:00: 00 03-14 00:00 :00 No [id number] Kamar Mcmahan 1 CAP EVERY 8 HOURS NEEDED FOR COUGH 02-07 00:00: 00 03-14 00:00 :00 No 200 Kamar Mcmahan TAKE 1 CAPSULE EVERY MORNING DAILY. 02-07 00:00: 00 03-14 00:00 :00 No 40 Kamar Mcmahan TAKE 1 TABLET BY MOUTH EVERY DAY 0 02-02 00:00: 00 03-14 00:00 :00 No 40 Kamar Mcmahan TAKE 30 MILLILITER BY MOUTH EVERY 12 HOURS NEEDED 0 212 00:00: 00 Yes Kamar Mcmahan TAKE 1 CAPSULE BY MOUTH TWICE A DAY 12-13 00:00: 00 Yes Kamar Mcmahan OLANZAPINE 10 MG TABS 0 1-24 00:00: 00 Yes Kamar Mcmahan LISINOPRIL 40 MG TABS 2021-11 2- 00:00: 00 Yes Kamar Mcamhan FUROSEMIDE 40 MG TABS 2021-11 00:00: 00 Yes Kamar Mcmahan METOPROLOL TARTRATE 50 MG TABS 2021-11 00:00: 00 Yes Kamar Mcmahan TAKE 1 TABLET BY MOUTH EVERY DAY 2021-11 00:00: 00 Yes Kamar Mcmahan OLANZAPINE 10 MG TABS 2021-11 2-18 00:00: 00 Yes Kamar Mcmahan METRONIDAZO LE 500 MG TABS 2021-11 2- 00:00: 00 Yes Kamar Mcmahan TAKE 1 TABLET BY MOUTH EVERY DAY 2021-11 2-18 00:00: 00 03-14 00:00 :00 No Kamar Richard Marj TAKE 1 TABLET BY MOUTH EVERY DAY 2021-11 00:00: 00 03-14 00:00 :00 No Kamar Mcmahan TAKE 1 TABLET BY MOUTH EVERY DAY 2021-11 218 00:00: 00 03-14 00:00 :00 No Kamar Mcmahan Dose Unknown 2021-11 2 00:00: 00 Yes Kamar Richard Mcmahan AMLODIPINE BESYLATE 10 MG TABS 2021-11 215 00:00: 00 Yes Kamar Richard Marj TAKE 1 TABLET BY MOUTH EVERY 8 HOURS 2021-11 00:00: 00 Yes Kamar Richard Marj TAKE 1 TABLET BY MOUTH EVERYDAY AT BEDTIME 2021-11 2 00:00: 00 Yes Kamar Richard Marj TAKE 1 TABLET BY MOUTH TWICE A DAY 2021-11 00:00: 00 Yes Kamar Richard Marj Dose Unknown 2021-11 00:00: 00 Yes Kamar Richard Marj TAKE 2 TABLETS BY MOUTH EVERY DAY 2021-11 00:00: 00 Yes Kamar Richard Marj TAKE 1 TABLET BY MOUTH EVERY DAY 2021-11 00:00: 00 03-14 00:00 :00 No Kamar Richard Marj TAKE 1 TABLET DAILY. 2021-11 00:00: 00 03-14 00:00 :00 No Kamar Richard Marj METOPROLOL TARTRATE 50 MG TABS 2021-11 00:00: 00 03-14 00:00 :00 No Kamargagan Mcmahan TAKE 1 TABLET BY MOUTH EVERY DAY 2021-11 00:00: 00 Yes Kamar Mcmahan FUROSEMIDE 40 MG TABS 2021-11 00:00: 00 Yes Kamar Mcmahan OLANZAPINE 10 MG TABS 2021-11 00:00: 00 Yes Kamar Mcmahan TAKE 1 CAPSULE BY MOUTH TWICE A DAY 2021-1124 00:00: 00 Yes Kamar Mcmahan TAKE 1 TABLET BY MOUTH EVERY DAY 2021-11 0 00:00: 00 Yes Kamar Mcmahan TAKE 1 CAPSULE BY MOUTH EVERY DAY 08-19 00:00: 00 Yes Kamar Mcmahan TAKE 1 TABLET BY MOUTH EVERY DAY 07-29 00:00: 00 Yes Kamar Mcmahan TAKE 1 TABLET BY MOUTH EVERY DAY 07-27 00:00: 00 Yes Kamar Mcmahan TAKE 1 CAPSULE BY MOUTH EVERY DAY 2021-0 8-16 00:00: 00 No 40 TAKE 1 CAPSULE BY MOUTH EVERY DAY 2021-0 8-16 00:00: 00 Yes 40 Kamar Mcmahan lisinopril 40 mg tablet 2021-0 7-20 00:00: 00 No 1mg &lt 2021-0 7-20 00:00: 00 No 10 lisinopril 40 mg tablet 2021-0 7-20 00:00: 00 Yes 1mg Kamar Mcmahan &lt 2021-0 7-20 00:00: 00 Yes 10 Kamar Mcmahan &lt 2021-0 7-18 00:00: 00 No 40 TAKE 1 TABLET BY MOUTH TWICE A DAY 2021-0 7-18 00:00: 00 No 500 &lt 2021-0 7-18 00:00: 00 Yes 40 Kamar Mcmahan TAKE 1 TABLET BY MOUTH TWICE A DAY 2021-0 7-18 00:00: 00 Yes 500 Kamar Mcmahan Lasix 40 mg tablet 2021-0 7-12 00:00: 00 No 1mg TAKE 1 TABLET BY MOUTH EVERY DAY 2021-0 7-12 00:00: 00 No 50 &lt 2021-0 7-12 00:00: 00 No 10 Lasix 40 mg tablet 2021-0 7-12 00:00: 00 Yes 1mg Kamar Mcmahan TAKE 1 TABLET BY MOUTH EVERY DAY 2021-0 7-12 00:00: 00 Yes 50 Kamar Mcmahan &lt 2021-0 7-12 00:00: 00 Yes 10 Kamar Mcmahan TAKE 1 TABLET BY MOUTH EVERY DAY FOR BLOOD PRESSURE 2021-0 6-03 00:00: 00 No TAKE 1 TABLET BY MOUTH EVERY DAY 2021-0 6-03 00:00: 00 No TAKE 1 TABLET BY MOUTH EVERY DAY 2021-0 6-03 00:00: 00 No TAKE 1 TABLET BY MOUTH TWICE A DAY 2021-0 6-03 00:00: 00 No TAKE 1 CAPSULE BY MOUTH TWICE A DAY 2021-0 6-03 00:00: 00 No TAKE 1 TABLET BY MOUTH EVERY DAY FOR BLOOD PRESSURE 2021-0 6-03 00:00: 00 Yes Kamar Mcmahan TAKE 1 TABLET BY MOUTH EVERY DAY 2021-0 6- 00:00: 00 Yes Kamar Mcmahan TAKE 1 TABLET BY MOUTH EVERY DAY 0 - 00:00: 00 Yes Kamar Mcmahan TAKE 1 TABLET BY MOUTH TWICE A DAY 0 - 00:00: 00 Yes Kamar Mcmahan TAKE 1 CAPSULE BY MOUTH TWICE A DAY 0 - 00:00: 00 Yes Kamar Mcmahan TAKE 1 TABLET BY MOUTH EVERYDAY AT BEDTIME 0 5- 00:00: 00 Yes Kamar Mcmahan LITHIUM CARBONATE 300 MG 0 5- 00:00: 00 Yes Kamar Mcmahan OMEPRAZOLE 40 MG CPDR 4-19 00:00: 00 Yes Kamar Mcmahan Dose Unknown - 00:00: 00 No Dose Unknown - 00:00: 00 No lisinopril 40 mg tablet - 00:00: 00 No 1mg metoprolol tartrate 50 mg tablet 0 - 00:00: 00 No 1mg Dose Unknown - 00:00: 00 No Lasix 40 mg tablet - 00:00: 00 Yes 1mg Kamar Mcmahan lisinopril 40 mg tablet - 00:00: 00 Yes 1mg Kamar Mcmahan metoprolol tartrate 50 mg tablet - 00:00: 00 Yes 1mg Kamar Mcmahan amlodipine 10 mg tablet - 00:00: 00 Yes 1mg Kamar Mcmahan Dose Unknown - 00:00: 00 Yes Kamar Mcmahan Dose Unknown - 00:00: 00 No Dose Unknown 11-29 00:00: 00 Yes Kamar Mcmahan Dose Unknown 2020-11 00:00: 00 No Dose Unknown 2020-11 00:00: 00 No Dose Unknown 2020-11 00:00: 00 Yes Kamar Mcmahan Dose Unknown 2020-11 00:00: 00 Yes Kamar Mcmahan Xifaxan 550 mg tablet 2020-11- 00:00: 00 No 1mg Xifaxan 550 mg tablet 2020-11 00:00: 00 Yes 1mg Kamar Mcmahan Dose Unknown 05-17 00:00: 00 No Dose Unknown 05-17 00:00: 00 No lisinopril 40 mg tablet 05-17 00:00: 00 No 1mg Dose Unknown 05-17 00:00: 00 Yes Kamar Mcmahan Dose Unknown 05-17 00:00: 00 Yes Kamar Mcmahan lisinopril 40 mg tablet 05-17 00:00: 00 Yes 1mg Kamar Mcmahan OLANZapine (ZYPREXA) 10 MG tablet 04-12 00:00: 00 Yes 10mg QD Take 1 tablet (10 mg total) by mouth nightly. [facility] omeprazole (PriLOSEC) 40 MG capsule 04-09 00:00: 00 Yes 40mg QD 1 capsule (40 mg total) daily. [facility] amLODIPine (NORVASC) 10 MG tablet 04-09 00:00: 00 Yes 10mg QD Take 1 tablet (10 mg total) by mouth daily. [facility] lithium 300 MG capsule 29 00:00: 00 04-04 00:00 :00 No 300mg Q.5D Take 1 capsule (300 mg total) by mouth in the morning and 1 capsule (300 mg total) before bedtime. [facility] lisinopriL (PRINIVIL,Z ESTRIL) 40 MG tablet 18 00:00: 00 04-04 00:00 :00 No 40mg QD Take 1 tablet (40 mg total) by mouth daily. [facility] metoprolol tartrate (LOPRESSOR) 50 MG tablet 4-03 00:00: 00 Yes 50mg QD Take 1 tablet (50 mg total) by mouth daily. [facility] amlodipine 10 mg tablet -17 00:00: 00 No 1mg metoprolol tartrate 50 mg tablet -17 00:00: 00 No 1mg amlodipine 10 mg tablet -17 00:00: 00 Yes 1mg Kamar Mcmahan metoprolol tartrate 50 mg tablet - 00:00: 00 Yes 1mg Kamar Mcmahan lisinopril 40 mg tablet 12-17 00:00: 00 No 1mg lisinopril 40 mg tablet 12-17 00:00: 00 Yes 1mg Kamar Mcmahan amlodipine 10 mg tablet 2019-11 00:00: 00 No 1mg metoprolol tartrate 50 mg tablet 2019-11 00:00: 00 No 1mg lisinopril 40 mg tablet 2019-11 00:00: 00 No 1mg amlodipine 10 mg tablet 2019-11 00:00: 00 Yes 1mg Kamar Mcmahan metoprolol tartrate 50 mg tablet 2019-11 00:00: 00 Yes 1mg Kamar Mcmahan lisinopril 40 mg tablet 2019-11 00:00: 00 Yes 1mg Kamar Mcmahan amlodipine 10 mg tablet 07-29 00:00: 00 No 1mg metoprolol tartrate 50 mg tablet 07-29 00:00: 00 No 1mg amlodipine 10 mg tablet 07-29 00:00: 00 Yes 1mg Kamar Mcmahan metoprolol tartrate 50 mg tablet 07-29 00:00: 00 Yes 1mg Kamar Mcmahan lisinopril 40 mg tablet 06-09 00:00: 00 No 1mg lisinopril 40 mg tablet 06-09 00:00: 00 Yes 1mg Kamar Mcmahan metoprolol tartrate 50 mg tablet 04-14 00:00: 00 No 1mg amlodipine 10 mg tablet 04-14 00:00: 00 No 1mg metoprolol tartrate 50 mg tablet 04-14 00:00: 00 Yes 1mg Kamar Mcmahan amlodipine 10 mg tablet 04-14 00:00: 00 Yes 1mg Kamar Mcmahan lisinopril 40 mg tablet 03-09 00:00: 00 No 1mg lisinopril 40 mg tablet 03-09 00:00: 00 Yes 1mg Kamar Mcmahan amlodipine 10 mg tablet 2018-11 0 00:00: 00 No 1mg metoprolol tartrate 50 mg tablet 2018-11 00:00: 00 No 1mg lisinopril 40 mg tablet 2018-11 00:00: 00 No 1mg amlodipine 10 mg tablet 2018-11 00:00: 00 Yes 1mg Kamar Mcmahan metoprolol tartrate 50 mg tablet 2018-11 00:00: 00 Yes 1mg Kamar Mcmahan lisinopril 40 mg tablet 2018-11 00:00: 00 Yes 1mg Kamar Mcmahan lisinopril 40 mg tablet 08-19 00:00: 00 No 1mg amlodipine 10 mg tablet 08-19 00:00: 00 No 1mg metoprolol tartrate 50 mg tablet 08-19 00:00: 00 No 1mg lisinopril 40 mg tablet 08-19 00:00: 00 Yes 1mg Kamar Mcmahan amlodipine 10 mg tablet 08-19 00:00: 00 Yes 1mg Kamar Mcmahan metoprolol tartrate 50 mg tablet 08-19 00:00: 00 Yes 1mg Kamar Mcmahan metronidazo le 500 mg tablet 01-10 00:00: 00 No 1mg metronidazo le 500 mg tablet 01-10 00:00: 00 Yes 1mg Kamar Mcmahan lisinopril 40 mg tablet 12-25 00:00: 00 No 1mg amlodipine 10 mg tablet 2 00:00: 00 No 1mg metoprolol tartrate 50 mg tablet 2 00:00: 00 No 1mg lisinopril 40 mg tablet 2 00:00: 00 Yes 1mg Kamar Mcmahan amlodipine 10 mg tablet 2 00:00: 00 Yes 1mg Kamar Mcmahan metoprolol tartrate 50 mg tablet 205 00:00: 00 Yes 1mg Kamar Mcmahan lisinopril 40 mg tablet 2017-11 00:00: 00 No 1mg amlodipine 10 mg tablet 2017-11 00:00: 00 No 1mg metoprolol tartrate 50 mg tablet 2017-11 00:00: 00 No 1mg lisinopril 40 mg tablet 2017-11 00:00: 00 Yes 1mg Kamar Mcmahan amlodipine 10 mg tablet 2017-11 00:00: 00 Yes 1mg Kamar Mcmahan metoprolol tartrate 50 mg tablet 2017-11 00:00: 00 Yes 1mg Kamar Mcmahan lisinopril 40 mg tablet 2017-11 00:00: 00 No 1mg amlodipine 10 mg tablet 2017-11 00:00: 00 No 1mg lisinopril 40 mg tablet 2017-11 00:00: 00 Yes 1mg Kamar Mcmahan amlodipine 10 mg tablet 2017-11 00:00: 00 Yes 1mg Kamar Mcmahan lisinopril 40 mg tablet 08-14 00:00: 00 No 1mg metoprolol tartrate 100 mg tablet 08-14 00:00: 00 No 1mg metoprolol tartrate 100 mg tablet 08-14 00:00: 00 No 5mg lisinopril 40 mg tablet 08-14 00:00: 00 Yes 1mg Kamar Mcmahan metoprolol tartrate 100 mg tablet 08-14 00:00: 00 Yes 1mg Kamar Mcmahan lisinopril 40 mg tablet 05-11 00:00: 00 No 1mg metoprolol tartrate 50 mg tablet 05-11 00:00: 00 No 1mg lisinopril 40 mg tablet 05-11 00:00: 00 Yes 1mg Kamar Mcmahan metoprolol tartrate 50 mg tablet 05-11 00:00: 00 Yes 1mg Kamar Mcmahan lisinopril 40 mg tablet 12-12 00:00: 00 No 1mg metoprolol tartrate 50 mg tablet 12-12 00:00: 00 No 1mg lisinopril 40 mg tablet 12-12 00:00: 00 Yes 1mg Kamar Mcmahan metoprolol tartrate 50 mg tablet 12-12 00:00: 00 Yes 1mg Kamar Mcmahan lisinopril 40 mg tablet 2016-11 00:00: 00 No 1mg metoprolol tartrate 50 mg tablet 2016-11 00:00: 00 No 1mg lisinopril 40 mg tablet 2016-11 00:00: 00 Yes 1mg Kamar Mcmahan metoprolol tartrate 50 mg tablet 2016-11 00:00: 00 Yes 1mg Kamar Mcmahan lisinopril 40 mg tablet 06-24 00:00: 00 No 1mg metoprolol tartrate 50 mg tablet 06-24 00:00: 00 No 1mg lisinopril 40 mg tablet 06-24 00:00: 00 Yes 1mg Kamar Mcmahan metoprolol tartrate 50 mg tablet 06-24 00:00: 00 Yes 1mg Kamar Mcmahan metoprolol tartrate 50 mg tablet 12-16 00:00: 00 No 1mg lisinopril 20 mg-hydrochl orothiazide 12.5 mg tablet 12-16 00:00: 00 No 1mg simvastatin 20 mg tablet 12-16 00:00: 00 No 1mg metoprolol tartrate 50 mg tablet 12-16 00:00: 00 Yes 1mg Kamar Mcmahan lisinopril 20 mg-hydrochl orothiazide 12.5 mg tablet 12-16 00:00: 00 Yes 1mg Kamar Mcmahan simvastatin 20 mg tablet 12-16 00:00: 00 Yes 1mg Kamar Mcmahan metoprolol tartrate 50 mg tablet 2015-11 00:00: 00 No 1mg lisinopril 20 mg-hydrochl orothiazide 12.5 mg tablet 2015-11 00:00: 00 No 1mg simvastatin 20 mg tablet 2015-11 00:00: 00 No 1mg metoprolol tartrate 50 mg tablet 2015-11 00:00: 00 Yes 1mg Kamar Mcmahan lisinopril 20 mg-hydrochl orothiazide 12.5 mg tablet 2015-11 00:00: 00 Yes 1mg Kamar Mcmahan simvastatin 20 mg tablet 2015-11 00:00: 00 Yes 1mg Kamar Mcmahan metoprolol tartrate 50 mg tablet 04-22 00:00: 00 No 1mg lisinopril 20 mg-hydrochl orothiazide 12.5 mg tablet 04-22 00:00: 00 No 1mg simvastatin 20 mg tablet 04-22 00:00: 00 No 1mg metoprolol tartrate 50 mg tablet 04-22 00:00: 00 Yes 1mg Kamar Mcmahan lisinopril 20 mg-hydrochl orothiazide 12.5 mg tablet 04-22 00:00: 00 Yes 1mg Kamar Mcmahan simvastatin 20 mg tablet 04-22 00:00: 00 Yes 1mg Kamar Mcmahan lisinopril 20 mg-hydrochl orothiazide 12.5 mg tablet 01-05 00:00: 00 No 1mg simvastatin 20 mg tablet 01-05 00:00: 00 No 1mg metoprolol tartrate 50 mg tablet 01-05 00:00: 00 No 1mg metoprolol tartrate 50 mg tablet 01-05 00:00: 00 Yes 1mg Kamar Mcmahan lisinopril 20 mg-hydrochl orothiazide 12.5 mg tablet 01-05 00:00: 00 Yes 1mg Kamar Mcmahan simvastatin 20 mg tablet 01-05 00:00: 00 Yes 1mg Kamar Mcmahan metoprolol tartrate 50 mg tablet 02-18 00:00: 00 No 1mg lisinopril 20 mg-hydrochl orothiazide 12.5 mg tablet 02-18 00:00: 00 No 1mg Depakote ER 500 mg tablet,exte nded release 02-18 00:00: 00 No 2mg hydroxyzine pamoate 25 mg capsule 02-18 00:00: 00 No 1mg metoprolol tartrate 50 mg tablet 02-18 00:00: 00 Yes 1mg Kamar Mcmahan lisinopril 20 mg-hydrochl orothiazide 12.5 mg tablet 02-18 00:00: 00 Yes 1mg Kamar Mcmahan Depakote ER 500 mg tablet,exte nded release 02-18 00:00: 00 Yes 2mg Kamar Mcmahan hydroxyzine pamoate 25 mg capsule 02-18 00:00: 00 Yes 1mg Kamar Mcmahan metoprolol tartrate 50 mg tablet 07-22 00:00: 00 No 1mg lisinopril 20 mg-hydrochl orothiazide 12.5 mg tablet 07-22 00:00: 00 No 1mg metoprolol tartrate 50 mg tablet 07-22 00:00: 00 Yes 1mg Kamar Mcmahan lisinopril 20 mg-hydrochl orothiazide 12.5 mg tablet 07-22 00:00: 00 Yes 1mg Kamar Mcmahan Vital Signs Vital Name Observation Time Observation Value Comments S tamiko Heart rate 2024-10-16 07:36:42 76 /min [facility] Oxygen saturation in Arterial blood by Pulse oximetry 2024-10-16 07:36:42 96 /min [facility] Systolic blood pressure 2024-10-16 07:36:37 115 mm[Hg] [facility] Diastolic blood pressure 2024-10-16 07:36:37 57 mm[Hg] [facility] Body temperature 2024-10-16 07:36:17 36.72 [facility] Respiratory rate 2024-10-16 00:36:32 18 /min [facility] Body height 2024-10-12 12:06:[address] [facility] Body weight 2024-10-12 12:06:[address] [facility] BMI 2024-10-12 12:06:00 25.82 kg/m2 [facility] Heart rate 2024-10-16 07:36:42 76 /min [facility] [place] [facility] Oxygen saturation in Arterial blood by Pulse oximetry 2024-10-16 07:36:42 96 /min [facility] Systolic blood pressure 2024-10-16 07:36:37 115 mm[Hg] [facility] Diastolic blood pressure 2024-10-16 07:36:37 57 mm[Hg] [facility] Body temperature 2024-10-16 07:36:17 36.72 [facility] Respiratory rate 2024-10-16 00:36:32 18 /min [facility] Body height 2024-10-12 12:06:00 167.6 cm Familia [facility] Body weight 2024-10-12 12:06:[address] [facility] BMI 2024-10-12 12:06:00 25.82 kg/m2 Familia [facility] Systolic blood pressure 2024-09-20 21:24:00 104 mm[Hg] [place] [facility] Diastolic blood pressure 2024-09-20 21:24:00 59 mm[Hg] [place] [facility] Heart rate 2024-09-20 21:24:00 78 /min [facility] Body temperature 2024-09-20 21:24:00 36.72 Gwen [facility] Respiratory rate 2024-09-20 21:24:00 18 /min [facility] Oxygen saturation in Arterial blood by Pulse oximetry 2024-09-20 21:24:00 96 /min [facility] Body weight 2024-09-20 08:10:00 72.485 kg [facility] BMI 2024-09-20 08:10:00 21.67 kg/m2 [facility] Body height 2024-09-19 01:08:00 182.9 cm [facility] HEIGHT 2021-04-16 09:45:00 162.6 cm WEIGHT 2021-04-16 09:45:00 76.839 kg HEIGHT 2021-04-16 09:45:00 162.6 cm WEIGHT 2021-04-16 09:45:00 76.839 kg BP Systolic 2024-06-28 13:25:00 176 mm[Hg] Step hen Richard Mcmahan BP Diastolic 2024-06-28 13:25:00 95 mm[Hg] Alexx phen F Marj Weight Measured 2024-06-28 13:25:00 163.60 pounds Kamar Richard Mcmahan Height Measured 2024-06-28 13:25:00 64.00 inches Kamar Richard Mcmahan Body Temperature 2024-06-28 13:25:00 98.10 degrees Kamar F Marj Heart Rate 2024-06-28 13:25:00 87.00 /min Kanchan en F Marj Respiratory Rate 2024-06-28 13:25:00 Kamar Richard Marj Systolic blood pressure 2024-05-22 16:21:00 145 mm[Hg] [facility] Diastolic blood pressure 2024-05-22 16:21:00 63 mm[Hg] [facility] Heart rate 2024-05-22 16:21:00 86 /min [facility] Body temperature 2024-05-22 16:21:00 36.28 Gwen [facility] Respiratory rate 2024-05-22 16:21:00 18 /min [facility] Oxygen saturation in Arterial blood by Pulse oximetry 2024-05-22 16:21:00 96 /min [facility] BP Systolic 2024-01-10 10:38:00 181 mm[Hg] Step hen Richard Mcmahan BP Diastolic 2024-01-10 10:38:00 93 mm[Hg] Alexx phen Richard Mcmahan Weight Measured 2024-01-10 10:38:00 163.00 pounds Kamar Mcmahan Height Measured 2024-01-10 10:38:00 64.00 inches Kamar Mcmahan Body Temperature 2024-01-10 10:38:00 98.20 degrees Kamar Mcmahan Heart Rate 2024-01-10 10:38:00 82.00 /min Kanchan en F Marj Respiratory Rate 2024-01-10 10:38:00 17.00 /min Kamargagan Mcmahan BP Systolic 2023-10-31 11:29:00 135 mm[Hg] Step hen F Marj BP Diastolic 2023-10-31 11:29:00 83 mm[Hg] Alexx phen Richard Mcmahan Weight Measured 2023-10-31 11:29:00 Kamargagan Mcmahan Height Measured 2023-10-31 11:29:00 Kamargagan Mcmahan Body Temperature 2023-10-31 11:29:00 98.10 degrees Kamar Mcmahan Heart Rate 2023-10-31 11:29:00 78.00 /min Kanchan en F Marj Respiratory Rate 2023-10-31 11:29:00 18.00 /min Kamar Richard Mcmahan Systolic blood pressure 2023-06-14 19:00:00 142 mm[Hg] [facility] Diastolic blood pressure 2023-06-14 19:00:00 68 mm[Hg] [facility] Heart rate 2023-06-14 19:00:00 62 /min [facility] Body temperature 2023-06-14 19:00:00 36.5 Gwen [facility] Respiratory rate 2023-06-14 19:00:00 14 /min [facility] Oxygen saturation in Arterial blood by Pulse oximetry 2023-06-14 19:00:00 99 /min [facility] Body height 2023-06-14 09:10:00 162.6 cm [facility] Body weight 2023-06-14 09:10:00 72.2 kg [facility] BMI 2023-06-14 09:10:00 27.32 kg/m2 [facility] BP Systolic 2023-06-07 10:02:00 118 mm[Hg] Nba Mcmahan BP Diastolic 2023-06-07 10:02:00 77 mm[Hg] Alexx Mcmahan Weight Measured 2023-06-07 10:02:00 161.20 pounds Kamar Mcmahan Height Measured 2023-06-07 10:02:00 64.00 inches Kamar Mcmahan Body Temperature 2023-06-07 10:02:00 98.10 degrees Kamar Mcmahan Heart Rate 2023-06-07 10:02:00 94.00 /min Kanchan Mcmahan Respiratory Rate 2023-06-07 10:02:00 17.00 /min Kamar Mcmahan Systolic blood pressure 2023-05-29 09:19:00 106 mm[Hg] [facility] Diastolic blood pressure 2023-05-29 09:19:00 67 mm[Hg] [facility] Heart rate 2023-05-29 09:19:00 66 /min [facility] Body temperature 2023-05-29 09:19:00 36.72 Gwen [facility] Body height 2023-05-29 09:19:00 162.6 cm [facility] Body weight 2023-05-29 09:19:00 72.213 kg [facility] BMI 2023-05-29 09:19:00 27.33 kg/m2 [facility] Oxygen saturation in Arterial blood by Pulse oximetry 2023-05-29 09:19:00 99 /min [facility] Respiratory rate 2023-04-12 11:12:00 18 /min [facility] BP Systolic 2023-03-13 13:36:00 129 mm[Hg] Step hen F Marj BP Diastolic 2023-03-13 13:36:00 81 mm[Hg] Alexx phen F Marj Weight Measured 2023-03-13 13:36:00 171.60 pounds Kamar F Marj Height Measured 2023-03-13 13:36:00 64.00 inches Kamar F Marj Body Temperature 2023-03-13 13:36:00 98.20 degrees Kamar F Marj Heart Rate 2023-03-13 13:36:00 79.00 /min Kanchan en F Marj Respiratory Rate 2023-03-13 13:36:00 17.00 /min Kamar F Marj BP Systolic 2023-02-28 17:34:00 125 mm[Hg] Step hen F Marj BP Diastolic 2023-02-28 17:34:00 80 mm[Hg] Alexx phen F Marj Weight Measured 2023-02-28 17:34:00 172.60 pounds Kamar F Marj Height Measured 2023-02-28 17:34:00 64.00 inches Kamar F Marj Body Temperature 2023-02-28 17:34:00 98.20 degrees Kamar F Marj Heart Rate 2023-02-28 17:34:00 71.00 /min Kanchan en F Marj Respiratory Rate 2023-02-28 17:34:00 19.00 /min Kamar F Marj BP Systolic 2023-02-07 09:57:00 115 mm[Hg] Step hen F Marj BP Diastolic 2023-02-07 09:57:00 76 mm[Hg] Alexx phen F Marj Weight Measured 2023-02-07 09:57:00 159.60 pounds Kamar F Marj Height Measured 2023-02-07 09:57:00 64.00 inches Kamar F Marj Body Temperature 2023-02-07 09:57:00 98.40 degrees Kamar F Marj Heart Rate 2023-02-07 09:57:00 76.00 /min Kanchan en F Marj Respiratory Rate 2023-02-07 09:57:00 18.00 /min Kamar F Marj Systolic blood pressure 2023-01-24 13:41:00 148 mm[Hg] [facility] Diastolic blood pressure 2023-01-24 13:41:00 68 mm[Hg] [facility] Heart rate 2023-01-24 13:41:00 78 /min [facility] Body temperature 2023-01-24 13:41:00 36.11 Gwen [facility] Respiratory rate 2023-01-24 13:41:00 18 /min [facility] Body weight 2023-01-24 13:41:00 70.398 kg [facility] BMI 2023-01-24 13:41:00 26.64 kg/m2 [facility] Oxygen saturation in Arterial blood by Pulse oximetry 2023-01-24 13:41:00 96 /min [facility] BP Systolic 2022-11-16 09:17:00 159 mm[Hg] Step hen F Marj BP Diastolic 2022-11-16 09:17:00 87 mm[Hg] Alexx phen F Marj Weight Measured 2022-11-16 09:17:00 162.20 pounds Kamar Richard Mcmahan Height Measured 2022-11-16 09:17:00 64.00 inches Kamar F Marj Body Temperature 2022-11-16 09:17:00 98.20 degrees Kamar F Marj Heart Rate 2022-11-16 09:17:00 97.00 /min Kanchan en F Marj Respiratory Rate 2022-11-16 09:17:00 18.00 /min Kamar F Marj BP Systolic 2022-07-29 10:45:00 162 mm[Hg] Step hen F Marj BP Diastolic 2022-07-29 10:45:00 88 mm[Hg] Alexx phen F Marj Weight Measured 2022-07-29 10:45:00 161.40 pounds Kamar F Marj Height Measured 2022-07-29 10:45:00 64.00 inches Kamar F Marj Body Temperature 2022-07-29 10:45:00 98.30 degrees Kamar F Marj Heart Rate 2022-07-29 10:45:00 92.00 /min Kanchan en F Marj Respiratory Rate 2022-07-29 10:45:00 17.00 /min Kamar F Marj BP Systolic 2022-04-22 10:42:00 103 mm[Hg] Step hen F Marj BP Diastolic 2022-04-22 10:42:00 68 mm[Hg] Alexx phen F Marj Weight Measured 2022-04-22 10:42:00 157.60 pounds Kamar Richard Mcmahan Height Measured 2022-04-22 10:42:00 64.00 inches Kamar F Marj Body Temperature 2022-04-22 10:42:00 98.10 degrees Kamar F Marj Heart Rate 2022-04-22 10:42:00 54.00 /min Kanchan en F Marj Respiratory Rate 2022-04-22 10:42:00 18.00 /min Kamar F Marj BP Systolic 2022-03-17 10:43:00 119 mm[Hg] BP [...] Procedure Date / Time Performed Performing Clinician Source External Catheter 2024-10-16 00:00:00 [facility] COMPREHENSIVE METABOLIC PANEL 2024-10-15 04:33:00 Ajibade, [facility] COMPLETE BLOOD COUNT W/DIFF AND PLATELET 2024-10-15 04:33:00 Ajibade, [facility] COMPLETE BLOOD COUNT 2024-10-15 04:33:00 Ajibade, [facility] AUTOMATED DIFFERENTIAL 2024-10-15 04:33:00 Ajibade, To [facility] COMPREHENSIVE METABOLIC PANEL 2024-10-14 05:46:00 Ajibade, [facility] COMPLETE BLOOD COUNT W/DIFF AND PLATELET 2024-10-14 05:46:00 Ajibade, [facility] MANUAL DIFFERENTIAL 2024-10-14 05:46:00 Ajibade, [facility] COMPLETE BLOOD COUNT 2024-10-14 05:46:00 Ajibade, [facility] AUTOMATED DIFFERENTIAL 2024-10-14 05:46:00 Ajibade, To [facility] REFLEX MAN DIFF AND MORPH - DO NOT ORDER 2024-10-14 05:46:00 Ajibade, [facility] COMPREHENSIVE METABOLIC PANEL 2024-10-13 06:44:00 Ajibade, [facility] MAGNESIUM LEVEL 2024-10-13 06:44:00 Ajibade, [facility] COMPLETE BLOOD COUNT W/DIFF AND PLATELET 2024-10-13 06:44:00 Ajibade, [facility] COMPLETE BLOOD COUNT 2024-10-13 06:44:00 Ajibade, [facility] AUTOMATED DIFFERENTIAL 2024-10-13 06:44:00 Ajibade, To [facility] PILY AURIS FUNGAL CULTURE 2024-10-12 17:28:00 Jeffery Villafuerte [facility] ECG 12-LEAD 2024-10-12 15:40:50 Pedro Castillo [facility] XR CHEST 1 VIEW 2024-10-12 13:20:00 Pedro Castillo [facility] UA WITH CULTURE IF INDICATED 2024-10-12 13:01:00 Tim Castillo [facility] BASIC METABOLIC PANEL 2024-10-12 12:38:00 Tim Castillo [facility] B-TYPE NATRIURETIC PEPTIDE 2024-10-12 12:38:00 [facility] COMPLETE BLOOD COUNT W/DIFF AND PLATELET 2024-10-12 12:38:00 [facility] TROPONIN I HIGH SENSITIVITY (SINGLE ORDER) 2024-10-12 12:38:00 [facility] COMPLETE BLOOD COUNT 2024-10-12 12:38:00 [facility] AUTOMATED DIFFERENTIAL 2024-10-12 12:38:00 Ramiro carcamo [facility] PANEL IDENTIFICATION 2024-09-20 15:12:00 Robbie Martínez i [facility] HB ABO GROUPING 2024-09-20 15:12:00 Katie Ford [facility] CBC WITHOUT DIFF 2024-09-20 15:12:00 Katie Ford [facility] CBC WITH DIFF 2024-09-20 08:16:00 Katie Ford [facility] MAGNESIUM 2024-09-20 08:16:00 Cyndee Martínez [facility] HEPATIC FUNCTION PANEL ([id number]) (ALB,T.PRO,BILI T,BU/BC,ALT,AST,ALK PHOS) 2024-09-20 08:16:00 Cyndee Martínez [facility] BASIC METABOLIC PANEL (NA, K, CL, CO2, GLUCOSE, BUN, CREATININE, CA) 2024-09-20 08:16:00 Katie Ford [facility] CBC WITH DIFF 2024-09-19 09:18:00 Mahad Jimenez [facility] PROTHROMBIN TIME / INR 2024-09-19 09:18:00 William Martínez [facility] MAGNESIUM 2024-09-19 09:18:00 Mahad Jimenez [facility] HEPATIC FUNCTION PANEL ([id number]) (ALB,T.PRO,BILI T,BU/BC,ALT,AST,ALK PHOS) 2024-09-19 09:18:00 [facility] (NA, K, CL, CO2, GLUCOSE, BUN, CREATININE, CA) 2024-09-19 09:18:00 Tony [facility] HEPATITIS C VIRUS (HCV) BY QUANTITATIVE NAAT 2024-09-18 19:18:00 Tony [facility] TRANSTHORACIC ECHO (TTE) LIMITED W/ DOPPLER AND COLOR 2024-09-18 13:48:00 Tony [facility] PROTHROMBIN TIME / INR 2024-09-18 08:37:00 William Martínez [facility] HCV ANTIBODY 2024-09-18 08:37:00 Mahad Jimenez [facility] RETICULOCYTES AUTOMATED 2024-09-18 08:37:00 Arturo Jimenez [facility] MAGNESIUM 2024-09-18 08:37:00 Cyndee Martínez [facility] IRON 2024-09-18 08:37:00 Mahad Jimenez [facility] HEPATIC FUNCTION PANEL (79243) (ALB,T.PRO,BILI T,BU/BC,ALT,AST,ALK PHOS) 2024-09-18 08:37:00 [facility] (NA, K, CL, CO2, GLUCOSE, BUN, CREATININE, CA) 2024-09-18 08:37:00 [facility]FF 2024-09-18 08:37:00 Cyndee Martínez [facility] CT HEAD WO CONTRAST 2024-09-18 05:38:44 Tony [facility] URINALYSIS 2024-09-17 23:54:00 Mackenzie Goyal [facility] URINE CULTURE 2024-09-17 23:54:00 Mackenzie Goyal [facility] URINE DRUG (IMMUNOASSAY) - COMPREHENSIVE DRUG SCREEN W/O REFLEX 2024-09-17 23:54:00 Mackenzie Goyal [facility] CT ABDOMEN PELVIS W CONTRAST 2024-09-17 23:49:03 Mackenzie Goyal [facility] XR CHEST 1 VW 2024-09-17 23:30:00 Mackenzie Goyal [facility] LACTIC ACID WHOLE BLOOD 2024-09-17 22:39:00 Alberto Goyal [facility] CBC WITH DIFF 2024-09-17 22:39:00 Mackenzie Goyal [facility] PHOSPHORUS 2024-09-17 22:00:00 Mackenzie Goyal [facility] MAGNESIUM 2024-09-17 22:00:00 Mackenzie Goyal [facility] THYROID STIMULATING HORMONE 2024-09-17 22:00:00 Mackenzie Goyal [facility] COMP. METABOLIC PANEL ([id number]) 2024-09-17 22:00:00 Mackenzie Goyal [facility] PROTHROMBIN TIME / INR 2024-09-17 21:59:00 Bria Goyal ala [facility] BLOOD CULTURE SCREEN 2024-09-17 21:59:00 Per Goyal [facility] AMMONIA, PLASMA 2024-09-17 21:59:00 [facility] 2024-09-17 21:59:00 Mackenzie Goyal [facility] DUPLEX VENOUS LEGS BILATERAL - BY VASCULAR LAB 2024-09-17 20:47:06 Mackenzie Goyal [facility] HIGH SENSITIVITY TROPONIN I 2024-05-22 16:20[facility]00 [facility] 2024-05-22 15:24:00 Nikhil [facility] ECG 12-LEAD 2024-05-22 14:36:39 Nikhil [facility] ECG 12-LEAD 2024-05-22 14:36:39 Unknown, Hl7 Doctor C [facility] ECG 12-LEAD 2024-05-22 14:36:09 Unknown, Hl7 Doctor C [facility] HIGH SENSITIVITY TROPONIN I 2024-05-22 13:55:00 Nikhil [facility] CBC W/PLT COUNT & AUTO DIFFERENTIAL 2024-05-22 11:42:00 Nikhil [facility] COMPREHENSIVE METABOLIC PANEL 2024-05-22 11:42:00 [facility] PROTHROMBIN TIME/INR 2024-05-22 11:42:00 Nikhil [facility] TYPE AND SCREEN, AUTOMATED 2024-05-22 11:42:00 [facility] CBC W/PLT COUNT & AUTO DIFFERENTIAL 2024-05-22 11:42:00 [facility] EKG-SCANNED 2024-05-22 00:00:00 ProviderParra [facility] CONSENT/REFUSAL FOR DIAGNOSIS AND TREATMENT 2024-01-19 16:38:29 Doctor Unassigned, [facility] IR EMBOLIZATION ARTERIAL 2023-06-14 16:30:00 García Meyer [facility] ABORH, MANUAL 2023-06-14 10:16:00 Halina Canales [facility] CBC W/PLT COUNT & AUTO DIFFERENTIAL 2023-06-14 09:59:00 Elif Teran [facility] PROTHROMBIN TIME/INR 2023-06-14 09:59:00 TeranSadi burgos-Andrade [facility] APTT 2023-06-14 09:59:00 Sadi Teran [facility] HEPATIC FUNCTION PANEL 2023-06-14 09:59:00 Elif Plata [facility] BASIC METABOLIC PANEL 2023-06-14 09:59:00 Teran Elif [facility] TYPE AND SCREEN, AUTOMATED 2023-06-14 09:59:00 Pedro Wise [facility] CBC W/PLT COUNT & AUTO DIFFERENTIAL 2023-06-14 09:59:00 TeranSadi leroyJuliannaAndrade Ayala [facility] NM BONE SCAN WHOLE BODY 2023-05-18 13:42:00 [facility] WITH & WITHOUT IV CONTRAST 2023-05-17 15:13:[address] [facility] CHEST WITH IV CONTRAST 2023-05-17 14:30:[address] [facility] CBC W/PLT COUNT & AUTO DIFFERENTIAL 2023-05-12 10:28:00 [facility] COMPREHENSIVE METABOLIC PANEL 2023-05-12 10:28:00 [facility] ALPHA FETOPROTEIN (AFP), TUMOR MARKER 2023-05-12 10:28:[address] [facility] CBC W/PLT COUNT & AUTO DIFFERENTIAL 2023-05-12 10:28:00 [facility] BASIC METABOLIC PANEL 2023-04-04 12:04:00 Elsi Gil [facility] HEPATIC FUNCTION PANEL 2023-04-04 12:04:00 Elsi Zuniga [facility] CBC W/PLT COUNT & AUTO DIFFERENTIAL 2023-04-04 12:04:00 Elsi Gil [facility] PROTHROMBIN TIME/INR 2023-04-04 12:04:00 Elsi Gil [facility] ALPHA FETOPROTEIN (AFP), TUMOR MARKER 2023-04-04 12:04:00 Elsi Gil [facility] CBC W/PLT COUNT & AUTO DIFFERENTIAL 2023-04-04 12:04:00 Elsi Gil [facility] MR ABDOMEN WITH & WITHOUT IV CONTRAST 2023-03-14 10:00:00 Mayra Healy [facility] BASIC METABOLIC PANEL 2023-01-24 14:17:00 Gavin Healy [facility] HEPATIC FUNCTION PANEL 2023-01-24 14:17:00 Valerio Healy [facility] CBC W/PLT COUNT & AUTO DIFFERENTIAL 2023-01-24 14:17:00 Gaivn Healyrolaarabella Blankenship [facility] PROTHROMBIN TIME/INR 2023-01-24 14:17:00 Gavin Healykylee eyad Blankenship [facility] ALPHA FETOPROTEIN (AFP), TUMOR MARKER 2023-01-24 14:17:00 Gavin Healyrolaarabella Blankenship [facility] CBC W/PLT COUNT & AUTO DIFFERENTIAL 2023-01-24 14:17:00 MonetLaney parsons Pattie [facility] Plan of Care Planned Activity Planned Date Details Comments Source Future Scheduled Test 2023-07-21 00:00:00 INFLUENZA VACCINE (Season Ended) [code = INFLUENZA VACCINE (Season Ended)] [facility] Future Scheduled Test 2023-07-21 00:00:00 INFLUENZA VACCINE (Season Ended) [code = INFLUENZA VACCINE (Season Ended)] [facility] Future Scheduled Test 2023-07-21 00:00:00 INFLUENZA VACCINE (Season Ended) [code = INFLUENZA VACCINE (Season Ended)] [facility] Future Scheduled Test 2023-07-21 00:00:00 INFLUENZA VACCINE (Season Ended) [code = INFLUENZA VACCINE (Season Ended)] [facility] Future Scheduled Test 2023-07-21 00:00:00 Influenza Vaccine (#1) [code = Influenza Vaccine (#1)] [facility] Future Scheduled Test 2023-07-21 00:00:00 Influenza Vaccine (#1) [code = Influenza Vaccine (#1)] [facility] Future Scheduled Test 2023-07-21 00:00:00 Influenza Vaccine (#1) [code = Influenza Vaccine (#1)] [facility] Future Scheduled Test 2023-07-21 00:00:00 Influenza Vaccine (#1) [code = Influenza Vaccine (#1)] [facility] Future Scheduled Test 2023-07-21 00:00:00 Influenza Vaccine (#1) [code = Influenza Vaccine (#1)] [facility] Future Scheduled Test 2023-07-21 00:00:00 Influenza Vaccine (#1) [code = Influenza Vaccine (#1)] [facility] Future Scheduled Test 2023-07-21 00:00:00 Influenza Vaccine (#1) [code = Influenza Vaccine (#1)] [facility] Future Scheduled Test 2023-07-21 00:00:00 Influenza Vaccine (#1) [code = Influenza Vaccine (#1)] [facility] Future Scheduled Test 2022-11-20 00:00:00 DEPRESSION SCREENING (12+) [code = DEPRESSION SCREENING (12+)] [facility] Future Scheduled Test 2022-11-20 00:00:00 DEPRESSION SCREENING (12+) [code = DEPRESSION SCREENING (12+)] [facility] Future Scheduled Test 2022-11-20 00:00:00 DEPRESSION SCREENING (12+) [code = DEPRESSION SCREENING (12+)] [facility] Future Scheduled Test 2022-11-20 00:00:00 DEPRESSION SCREENING (12+) [code = DEPRESSION SCREENING (12+)] [facility] Future Scheduled Test 2022-11-20 00:00:00 DEPRESSION SCREENING (12+) [code = DEPRESSION SCREENING (12+)] [facility] Future Scheduled Test 2022-11-20 00:00:00 DEPRESSION SCREENING (12+) [code = DEPRESSION SCREENING (12+)] [facility] Future Scheduled Test 2022-11-20 00:00:00 DEPRESSION SCREENING (12+) [code = DEPRESSION SCREENING (12+)] [facility] Future Scheduled Test 2022-11-20 00:00:00 DEPRESSION SCREENING (12+) [code = DEPRESSION SCREENING (12+)] [facility] Future Scheduled Test 2022-07-21 00:00:00 INFLUENZA VACCINE (#1) [code = INFLUENZA VACCINE (#1)] [facility] Future Scheduled Test 2022-07-21 00:00:00 INFLUENZA VACCINE (#1) [code = INFLUENZA VACCINE (#1)] [facility] Future Scheduled Test 2022-07-21 00:00:00 INFLUENZA VACCINE (#1) [code = INFLUENZA VACCINE (#1)] [facility] Future Scheduled Test 2022-07-21 00:00:00 INFLUENZA VACCINE (#1) [code = INFLUENZA VACCINE (#1)] [facility] Future Scheduled Test 2022-07-21 00:00:00 INFLUENZA VACCINE (#1) [code = INFLUENZA VACCINE (#1)] [facility] Future Scheduled Test 2022-07-21 00:00:00 INFLUENZA VACCINE (#1) [code = INFLUENZA VACCINE (#1)] [facility] Future Scheduled Test 2022-07-21 00:00:00 INFLUENZA VACCINE (#1) [code = INFLUENZA VACCINE (#1)] [facility] Future Scheduled Test 2022-04-16 00:00:00 Tobacco Cessation Counseling and Screening (12+) [code = Tobacco Cessation Counseling and Screening (12+)] [facility] Future Scheduled Test 2022-04-16 00:00:00 Tobacco Cessation Counseling and Screening (12+) [code = Tobacco Cessation Counseling and Screening (12+)] [facility] Future Scheduled Test 2021-11-20 00:00:00 DEPRESSION SCREENING (12+) [code = DEPRESSION SCREENING (12+)] [facility] Future Scheduled Test 2021-11-20 00:00:00 DEPRESSION SCREENING (12+) [code = DEPRESSION SCREENING (12+)] [facility] Future Scheduled Test 2021-11-20 00:00:00 DEPRESSION SCREENING (12+) [code = DEPRESSION SCREENING (12+)] [facility] Future Scheduled Test 2012 00:00:00 SHINGLES VACCINES (1 of 2) [code = SHINGLES VACCINES (1 of 2)] [facility] Future Scheduled Test 2012 00:00:00 SHINGLES VACCINES (1 of 2) [code = SHINGLES VACCINES (1 of 2)] [facility] Future Scheduled Test 2012 00:00:00 SHINGLES VACCINES (1 of 2) [code = SHINGLES VACCINES (1 of 2)] [facility] Future Scheduled Test 2012 00:00:00 SHINGLES VACCINES (1 of 2) [code = SHINGLES VACCINES (1 of 2)] [facility] Future Scheduled Test 2012 00:00:00 SHINGLES VACCINES (1 of 2) [code = SHINGLES VACCINES (1 of 2)] [facility] Future Scheduled Test 2012 00:00:00 SHINGLES VACCINES (1 of 2) [code = SHINGLES VACCINES (1 of 2)] [facility] Future Scheduled Test 2012 00:00:00 SHINGLES VACCINES (1 of 2) [code = SHINGLES VACCINES (1 of 2)] [facility] Future Scheduled Test 2012 00:00:00 SHINGLES VACCINES (1 of 2) [code = SHINGLES VACCINES (1 of 2)] [facility] Future Scheduled Test 2012 00:00:00 SHINGLES VACCINES (1 of 2) [code = SHINGLES VACCINES (1 of 2)] [facility] Future Scheduled Test 2012 00:00:00 SHINGLES VACCINES (1 of 2) [code = SHINGLES VACCINES (1 of 2)] [facility] Future Scheduled Test 2012 00:00:00 SHINGLES VACCINES (1 of 2) [code = SHINGLES VACCINES (1 of 2)] [facility] Future Scheduled Test 2012 00:00:00 SHINGLES VACCINES (1 of 2) [code = SHINGLES VACCINES (1 of 2)] [facility] Future Scheduled Test 2012 00:00:00 SHINGLES VACCINES (1 of 2) [code = SHINGLES VACCINES (1 of 2)] [facility] Future Scheduled Test 2012 00:00:00 SHINGLES VACCINES (1 of 2) [code = SHINGLES VACCINES (1 of 2)] [facility] Future Scheduled Test 2012 00:00:00 SHINGLES VACCINES (1 of 2) [code = SHINGLES VACCINES (1 of 2)] [facility] Future Scheduled Test 2012 00:00:00 SHINGLES VACCINES (1 of 2) [code = SHINGLES VACCINES (1 of 2)] [facility] Future Scheduled Test 2012 00:00:00 SHINGLES VACCINES (1 of 2) [code = SHINGLES VACCINES (1 of 2)] [facility] Future Scheduled Test 2012 00:00:00 SHINGLES VACCINES (1 of 2) [code = SHINGLES VACCINES (1 of 2)] [facility] Future Scheduled Test 2012 00:00:00 SHINGLES VACCINES (1 of 2) [code = SHINGLES VACCINES (1 of 2)] [facility] Future Scheduled Test 2007 00:00:00 Lipid panel (procedure) [code = 94713636] [facility] Future Scheduled Test 2007 00:00:00 Lipid panel (procedure) [code = 49749373] [facility] Future Scheduled Test 2007 00:00:00 Lipid panel (procedure) [code = 63400002] [facility] Future Scheduled Test 2007 00:00:00 Lipid panel (procedure) [code = 05010019] [facility] Future Scheduled Test 2007 00:00:00 Lipid panel (procedure) [code = 29415441] [facility] Future Scheduled Test 2007 00:00:00 Lipid panel (procedure) [code = 14501377] [facility] Future Scheduled Test 2007 00:00:00 Lipid panel (procedure) [code = 39197118] [facility] Future Scheduled Test 2007 00:00:00 Lipid panel (procedure) [code = 76250763] [facility] Future Scheduled Test 2007 00:00:00 Lipid panel (procedure) [code = 78497062] [facility] Future Scheduled Test 2007 00:00:00 Lipid panel (procedure) [code = 12031599] [facility] Future Scheduled Test 2007 00:00:00 Lipid panel (procedure) [code = 70598107] [facility] Future Scheduled Test 2007 00:00:00 Lipid panel (procedure) [code = 70636053] [facility] Future Scheduled Test 2007 00:00:00 Lipid panel (procedure) [code = 70771499] [facility] Future Scheduled Test 2007 00:00:00 Lipid panel (procedure) [code = 12444895] [facility] Future Scheduled Test 2007 00:00:00 Lipid panel (procedure) [code = 23183043] [facility] Future Scheduled Test 2007 00:00:00 Lipid panel (procedure) [code = 02184008] [facility] Future Scheduled Test 2007 00:00:00 Lipid panel (procedure) [code = 68884116] [facility] Future Scheduled Test 2007 00:00:00 Lipid panel (procedure) [code = 00069592] [facility] Future Scheduled Test 2007 00:00:00 Lipid panel (procedure) [code = 04303290] [facility] Future Scheduled Test 1983 00:00:00 Screening for malignant neoplasm of cervix (procedure) [code = 709521836] [facility] Future Scheduled Test 1983 00:00:00 Screening for malignant neoplasm of cervix (procedure) [code = 187658294] [facility] Future Scheduled Test 1983 00:00:00 Screening for malignant neoplasm of cervix (procedure) [code = 540014916] [facility] Future Scheduled Test 1983 00:00:00 Screening for malignant neoplasm of cervix (procedure) [code = 257444169] [facility] Future Scheduled Test 1983 00:00:00 Screening for malignant neoplasm of cervix (procedure) [code = 495756747] [facility] Future Scheduled Test 1983 00:00:00 Screening for malignant neoplasm of cervix (procedure) [code = 719095007] [facility] Future Scheduled Test 1983 00:00:00 Screening for malignant neoplasm of cervix (procedure) [code = 542514064] [facility] Future Scheduled Test 1983 00:00:00 Screening for malignant neoplasm of cervix (procedure) [code = 193180290] [facility] Future Scheduled Test 1983 00:00:00 Screening for malignant neoplasm of cervix (procedure) [code = 759968332] [facility] Future Scheduled Test 1983 00:00:00 Screening for malignant neoplasm of cervix (procedure) [code = 689632477] [facility] Future Scheduled Test 1983 00:00:00 Screening for malignant neoplasm of cervix (procedure) [code = 928731379] [facility] Future Scheduled Test 1983 00:00:00 Screening for malignant neoplasm of cervix (procedure) [code = 488002141] [facility] Future Scheduled Test 1983 00:00:00 Screening for malignant neoplasm of cervix (procedure) [code = 205821678] [facility] Future Scheduled Test 1983 00:00:00 Screening for malignant neoplasm of cervix (procedure) [code = 876763034] [facility] Future Scheduled Test 1983 00:00:00 Screening for malignant neoplasm of cervix (procedure) [code = 424503603] [facility] Future Scheduled Test 1983 00:00:00 Screening for malignant neoplasm of cervix (procedure) [code = 008344818] [facility] Future Scheduled Test 1983 00:00:00 Screening for malignant neoplasm of cervix (procedure) [code = 552873561] [facility] Future Scheduled Test 1983 00:00:00 Screening for malignant neoplasm of cervix (procedure) [code = 956033200] [facility] Future Scheduled Test 1983 00:00:00 Screening for malignant neoplasm of cervix (procedure) [code = 018090319] [facility] Future Scheduled Test 1981 00:00:00 DTAP/TDAP/TD VACCINES (1 - Tdap) [code = DTAP/TDAP/TD VACCINES (1 - Tdap)] [facility] Future Scheduled Test 1981 00:00:00 DTAP/TDAP/TD VACCINES (1 - Tdap) [code = DTAP/TDAP/TD VACCINES (1 - Tdap)] [facility] Future Scheduled Test 1981 00:00:00 DTAP/TDAP/TD VACCINES (1 - Tdap) [code = DTAP/TDAP/TD VACCINES (1 - Tdap)] [facility] Future Scheduled Test 1981 00:00:00 DTAP/TDAP/TD VACCINES (1 - Tdap) [code = DTAP/TDAP/TD VACCINES (1 - Tdap)] [facility] Future Scheduled Test 1981 00:00:00 DTAP/TDAP/TD VACCINES (1 - Tdap) [code = DTAP/TDAP/TD VACCINES (1 - Tdap)] [facility] Future Scheduled Test 1981 00:00:00 DTAP/TDAP/TD VACCINES (1 - Tdap) [code = DTAP/TDAP/TD VACCINES (1 - Tdap)] [facility] Future Scheduled Test 1981 00:00:00 DTAP/TDAP/TD VACCINES (1 - Tdap) [code = DTAP/TDAP/TD VACCINES (1 - Tdap)] [facility] Future Scheduled Test 1981 00:00:00 DTAP/TDAP/TD VACCINES (1 - Tdap) [code = DTAP/TDAP/TD VACCINES (1 - Tdap)] [facility] Future Scheduled Test 1981 00:00:00 DTAP/TDAP/TD VACCINES (1 - Tdap) [code = DTAP/TDAP/TD VACCINES (1 - Tdap)] [facility] Future Scheduled Test 1981 00:00:00 DTAP/TDAP/TD VACCINES (1 - Tdap) [code = DTAP/TDAP/TD VACCINES (1 - Tdap)] [facility] Future Scheduled Test 1981 00:00:00 DTAP/TDAP/TD VACCINES (1 - Tdap) [code = DTAP/TDAP/TD VACCINES (1 - Tdap)] [facility] Future Scheduled Test 1981 00:00:00 DTAP/TDAP/TD VACCINES (1 - Tdap) [code = DTAP/TDAP/TD VACCINES (1 - Tdap)] [facility] Future Scheduled Test 1981 00:00:00 DTAP/TDAP/TD VACCINES (1 - Tdap) [code = DTAP/TDAP/TD VACCINES (1 - Tdap)] [facility] Future Scheduled Test 1981 00:00:00 DTAP/TDAP/TD VACCINES (1 - Tdap) [code = DTAP/TDAP/TD VACCINES (1 - Tdap)] [facility] Future Scheduled Test 1981 00:00:00 DTAP/TDAP/TD VACCINES (1 - Tdap) [code = DTAP/TDAP/TD VACCINES (1 - Tdap)] [facility] Future Scheduled Test 1981 00:00:00 DTAP/TDAP/TD VACCINES (1 - Tdap) [code = DTAP/TDAP/TD VACCINES (1 - Tdap)] [facility] Future Scheduled Test 1981 00:00:00 DTAP/TDAP/TD VACCINES (1 - Tdap) [code = DTAP/TDAP/TD VACCINES (1 - Tdap)] [facility] Future Scheduled Test 1981 00:00:00 DTAP/TDAP/TD VACCINES (1 - Tdap) [code = DTAP/TDAP/TD VACCINES (1 - Tdap)] [facility] Future Scheduled Test 1981 00:00:00 DTAP/TDAP/TD VACCINES (1 - Tdap) [code = DTAP/TDAP/TD VACCINES (1 - Tdap)] [facility] Future Scheduled Test 1977 00:00:00 Human immunodeficiency virus screening (procedure) [code = 208376122] [facility] Future Scheduled Test 1977 00:00:00 Human immunodeficiency virus screening (procedure) [code = 131880226] [facility] Future Scheduled Test 1977 00:00:00 Human immunodeficiency virus screening (procedure) [code = 035032788] [facility] Future Scheduled Test 1977 00:00:00 Human immunodeficiency virus screening (procedure) [code = 677117911] [facility] Future Scheduled Test 1977 00:00:00 Human immunodeficiency virus screening (procedure) [code = 861287387] [facility] Future Scheduled Test 1977 00:00:00 Human immunodeficiency virus screening (procedure) [code = 851799644] [facility] Future Scheduled Test 1977 00:00:00 Human immunodeficiency virus screening (procedure) [code = 856206044] [facility] Scheduled Test 1974 00:00:00 Tobacco Cessation Counseling and Screening (12+) [code = Tobacco Cessation Counseling and Screening (12+)] [facility] Scheduled Test 1974 00:00:00 Tobacco Cessation Counseling and Screening (12+) [code = Tobacco Cessation Counseling and Screening (12+)] [facility] Scheduled Test 1974 00:00:00 Tobacco Cessation Counseling and Screening (12+) [code = Tobacco Cessation Counseling and Screening (12+)] [facility] Scheduled Test 1974 00:00:00 Tobacco Cessation Counseling and Screening (12+) [code = Tobacco Cessation Counseling and Screening (12+)] [facility] Scheduled Test 1974 00:00:00 Tobacco Cessation Counseling and Screening (12+) [code = Tobacco Cessation Counseling and Screening (12+)] [facility] Scheduled Test 1974 00:00:00 Tobacco Cessation Counseling and Screening (12+) [code = Tobacco Cessation Counseling and Screening (12+)] [facility] Scheduled Test 1974 00:00:00 Tobacco Cessation Counseling and Screening (12+) [code = Tobacco Cessation Counseling and Screening (12+)] [facility] Future Scheduled Test 1974 00:00:00 Tobacco Cessation Counseling and Screening (12+) [code = Tobacco Cessation Counseling and Screening (12+)] [facility] Scheduled Test 1974 00:00:00 Tobacco Cessation Counseling and Screening (12+) [code = Tobacco Cessation Counseling and Screening (12+)] [facility] Scheduled Test 1974 00:00:00 Tobacco Cessation Counseling and Screening (12+) [code = Tobacco Cessation Counseling and Screening (12+)] [facility] Scheduled Test 1974 00:00:00 Tobacco Cessation Counseling and Screening (12+) [code = Tobacco Cessation Counseling and Screening (12+)] [facility] Future Scheduled Test 1974 00:00:00 Tobacco Cessation Counseling and Screening (12+) [code = Tobacco Cessation Counseling and Screening (12+)] [facility] Future Scheduled Test 1974 00:00:00 Tobacco Cessation Counseling and Screening (12+) [code = Tobacco Cessation Counseling and Screening (12+)] [facility] Future Scheduled Test 1974 00:00:00 Tobacco Cessation Counseling and Screening (12+) [code = Tobacco Cessation Counseling and Screening (12+)] [facility] Future Scheduled Test 1974 00:00:00 Tobacco Cessation Counseling and Screening (12+) [code = Tobacco Cessation Counseling and Screening (12+)] [facility] Future Scheduled Test 1968 00:00:00 PNEUMOCOCCAL VACCINE 0-64 YRS (1 - PCV) [code = PNEUMOCOCCAL VACCINE 0-64 YRS (1 - PCV)] [facility] Future Scheduled Test 1968 00:00:00 PNEUMOCOCCAL VACCINE 0-64 YRS (1 - PCV) [code = PNEUMOCOCCAL VACCINE 0-64 YRS (1 - PCV)] [facility] Future Scheduled Test 1968 00:00:00 PNEUMOCOCCAL VACCINE 0-64 YRS (1 - PCV) [code = PNEUMOCOCCAL VACCINE 0-64 YRS (1 - PCV)] [facility] Future Scheduled Test 1968 00:00:00 PNEUMOCOCCAL VACCINE 0-64 YRS (1 - PCV) [code = PNEUMOCOCCAL VACCINE 0-64 YRS (1 - PCV)] [facility] Future Scheduled Test 1968 00:00:00 PNEUMOCOCCAL VACCINE 0-64 YRS (1 - PCV) [code = PNEUMOCOCCAL VACCINE 0-64 YRS (1 - PCV)] [facility] Future Scheduled Test 1968 00:00:00 PNEUMOCOCCAL VACCINE 0-64 YRS (1 - PCV) [code = PNEUMOCOCCAL VACCINE 0-64 YRS (1 - PCV)] [facility] Future Scheduled Test 1968 00:00:00 PNEUMOCOCCAL VACCINE 0-64 YRS (1 - PCV) [code = PNEUMOCOCCAL VACCINE 0-64 YRS (1 - PCV)] [facility] Future Scheduled Test 1968 00:00:00 PNEUMOCOCCAL VACCINE 0-64 YRS (1 - PCV) [code = PNEUMOCOCCAL VACCINE 0-64 YRS (1 - PCV)] [facility] Future Scheduled Test 1968 00:00:00 Pneumococcal Vaccine: 0-64 Years (1 - PCV) [code = Pneumococcal Vaccine: 0-64 Years (1 - PCV)] [facility] Future Scheduled Test 1968 00:00:00 PNEUMOCOCCAL VACCINE 0-64 YRS (1 - PCV) [code = PNEUMOCOCCAL VACCINE 0-64 YRS (1 - PCV)] [facility] Future Scheduled Test 1968 00:00:00 Pneumococcal Vaccine: 0-64 Years (1 - PCV) [code = Pneumococcal Vaccine: 0-64 Years (1 - PCV)] [facility] Future Scheduled Test 1968 00:00:00 Pneumococcal Vaccine: 0-64 Years (1 - PCV) [code = Pneumococcal Vaccine: 0-64 Years (1 - PCV)] [facility] Future Scheduled Test 1968 00:00:00 Pneumococcal Vaccine: 0-64 Years (1 - PCV) [code = Pneumococcal Vaccine: 0-64 Years (1 - PCV)] [facility] Future Scheduled Test 1968 00:00:00 Pneumococcal Vaccine: 0-64 Years (1 - PCV) [code = Pneumococcal Vaccine: 0-64 Years (1 - PCV)] [facility] Future Scheduled Test 1968 00:00:00 Pneumococcal Vaccine: 0-64 Years (1 - PCV) [code = Pneumococcal Vaccine: 0-64 Years (1 - PCV)] [facility] Future Scheduled Test 1968 00:00:00 PNEUMOCOCCAL VACCINE 0-64 YRS (1 - PCV) [code = PNEUMOCOCCAL VACCINE 0-64 YRS (1 - PCV)] [facility] Future Scheduled Test 1968 00:00:00 Pneumococcal Vaccine: 0-64 Years (1 - PCV) [code = Pneumococcal Vaccine: 0-64 Years (1 - PCV)] [facility] Future Scheduled Test 1968 00:00:00 Pneumococcal Vaccine: 0-64 Years (1 of 2 - PCV) [code = Pneumococcal Vaccine: 0-64 Years (1 of 2 - PCV)] [facility] Future Scheduled Test 1968 00:00:00 PNEUMOCOCCAL VACCINE 0-64 YRS (1 - PCV) [code = PNEUMOCOCCAL VACCINE 0-64 YRS (1 - PCV)] [facility] Future Scheduled Test 1962 00:00:00 COVID-19 VACCINE (#1) [code = COVID-19 VACCINE (#1)] [facility] Future Scheduled Test 1962 00:00:00 COVID-19 VACCINE (#1) [code = COVID-19 VACCINE (#1)] [facility] Future Scheduled Test 1962 00:00:00 COVID-19 VACCINE (#1) [code = COVID-19 VACCINE (#1)] [facility] Future Scheduled Test 1962 00:00:00 COVID-19 VACCINE (#1) [code = COVID-19 VACCINE (#1)] [facility] Future Scheduled Test 1962 00:00:00 COVID-19 VACCINE (#1) [code = COVID-19 VACCINE (#1)] [facility] Future Scheduled Test 1962 00:00:00 COVID-19 VACCINE (#1) [code = COVID-19 VACCINE (#1)] [facility] Future Scheduled Test 1962 00:00:00 COVID-19 VACCINE (#1) [code = COVID-19 VACCINE (#1)] [facility] Future Scheduled Test 1962 00:00:00 COVID-19 VACCINE (#1) [code = COVID-19 VACCINE (#1)] [facility] Future Scheduled Test 1962 00:00:00 COVID-19 VACCINE (#1) [code = COVID-19 VACCINE (#1)] [facility] Future Scheduled Test 1962 00:00:00 COVID-19 VACCINE (#1) [code = COVID-19 VACCINE (#1)] [facility] Future Scheduled Test 1962 00:00:00 COVID-19 VACCINE (#1) [code = COVID-19 VACCINE (#1)] [facility] Future Scheduled Test 1962 00:00:00 COVID-19 VACCINE (#1) [code = COVID-19 VACCINE (#1)] [facility] Future Scheduled Test 1962 00:00:00 COVID-19 VACCINE (#1) [code = COVID-19 VACCINE (#1)] [facility] Future Scheduled Test 1962 00:00:00 COVID-19 VACCINE (#1) [code = COVID-19 VACCINE (#1)] [facility] Future Scheduled Test 1962 00:00:00 COVID-19 VACCINE (#1) [code = COVID-19 VACCINE (#1)] [facility] Future Scheduled Test 1962 00:00:00 COVID-19 VACCINE (#1) [code = COVID-19 VACCINE (#1)] [facility] Future Scheduled Test 1962 00:00:00 COVID-19 VACCINE (#1) [code = COVID-19 VACCINE (#1)] [facility] Future Scheduled Test 1962 00:00:00 COVID-19 VACCINE (#1) [code = COVID-19 VACCINE (#1)] [facility] Future Scheduled Test 1962 00:00:00 COVID-19 VACCINE (#1) [code = COVID-19 VACCINE (#1)] [facility] Future Scheduled Test 1962 00:00:00 CT Colonography (combo) [code = CT Colonography (combo)] [facility] Future Scheduled Test 1962 00:00:00 Screening for malignant neoplasm of colon (procedure) [code = [id number]] [facility] Future Scheduled Test 1962 00:00:00 Screening for malignant neoplasm of colon (procedure) [code = [id number]] [facility] Future Scheduled Test 1962 00:00:00 Screening for malignant neoplasm of colon (procedure) [code = [id number]] [facility] Future Scheduled Test 1962 00:00:00 Screening for malignant neoplasm of colon (procedure) [code = 263978068] [facility] Future Scheduled Test 1962 00:00:00 Sigmoidoscopy [code = Sigmoidoscopy] [facility] Future Scheduled Test 1962 00:00:00 Screening for malignant neoplasm of breast (procedure) [code = [id number]] [facility] Future Scheduled Test 1962 00:00:00 CT Colonography (combo) [code = CT Colonography (combo)] [facility] Future Scheduled Test 1962 00:00:00 Screening for malignant neoplasm of colon (procedure) [code = [id number]] [facility] Future Scheduled Test 1962 00:00:00 Screening for malignant neoplasm of colon (procedure) [code = [id number]] [facility] Future Scheduled Test 1962 00:00:00 Screening for malignant neoplasm of colon (procedure) [code = 807762042] [facility] Future Scheduled Test 1962 00:00:00 Screening for malignant neoplasm of colon (procedure) [code = [id number]] [facility] Future Scheduled Test 1962 00:00:00 Sigmoidoscopy [code = Sigmoidoscopy] [facility] Future Scheduled Test 1962 00:00:00 Screening for malignant neoplasm of breast (procedure) [code = 372474058] [facility] Future Scheduled Test 1962 00:00:00 CT Colonography (combo) [code = CT Colonography (combo)] [facility] Future Scheduled Test 1962 00:00:00 Screening for malignant neoplasm of colon (procedure) [code = 956335039] [facility] Future Scheduled Test 1962 00:00:00 Screening for malignant neoplasm of colon (procedure) [code = 519716600] [facility] Future Scheduled Test 1962 00:00:00 Screening for malignant neoplasm of colon (procedure) [code = [id number]] [facility] Future Scheduled Test 1962 00:00:00 Screening for malignant neoplasm of colon (procedure) [code = 620020196] [facility] Future Scheduled Test 1962 00:00:00 Sigmoidoscopy [code = Sigmoidoscopy] [facility] Future Scheduled Test 1962 00:00:00 Screening for malignant neoplasm of breast (procedure) [code = 100441795] [facility] Future Scheduled Test 1962 00:00:00 CT Colonography (combo) [code = CT Colonography (combo)] [facility] Future Scheduled Test 1962 00:00:00 Screening for malignant neoplasm of colon (procedure) [code = 173940145] [facility] Future Scheduled Test 1962 00:00:00 Screening for malignant neoplasm of colon (procedure) [code = [id number]] [facility] Future Scheduled Test 1962 00:00:00 Screening for malignant neoplasm of colon (procedure) [code = 241047909] [facility] Future Scheduled Test 1962 00:00:00 Screening for malignant neoplasm of colon (procedure) [code = [id number]] [facility] Future Scheduled Test 1962 00:00:00 Sigmoidoscopy [code = Sigmoidoscopy] [facility] Future Scheduled Test 1962 00:00:00 Screening for malignant neoplasm of breast (procedure) [code = 921044979] [facility] Future Scheduled Test 1962 00:00:00 CT Colonography (combo) [code = CT Colonography (combo)] [facility] Future Scheduled Test 1962 00:00:00 Screening for malignant neoplasm of colon (procedure) [code = 348746381] [facility] Future Scheduled Test 1962 00:00:00 Screening for malignant neoplasm of colon (procedure) [code = 477017199] [facility] Future Scheduled Test 1962 00:00:00 Screening for malignant neoplasm of colon (procedure) [code = 776559397] [facility] Future Scheduled Test 1962 00:00:00 Screening for malignant neoplasm of colon (procedure) [code = 474688883] [facility] Future Scheduled Test 1962 00:00:00 Sigmoidoscopy [code = Sigmoidoscopy] [facility] Future Scheduled Test 1962 00:00:00 Screening for malignant neoplasm of breast (procedure) [code = 918904555] [facility] Future Scheduled Test 1962 00:00:00 CT Colonography (combo) [code = CT Colonography (combo)] [facility] Future Scheduled Test 1962 00:00:00 Screening for malignant neoplasm of colon (procedure) [code = 824306090] [facility] Future Scheduled Test 1962 00:00:00 Screening for malignant neoplasm of colon (procedure) [code = 700725416] [facility] Future Scheduled Test 1962 00:00:00 Screening for malignant neoplasm of colon (procedure) [code = 398196453] [facility] Future Scheduled Test 1962 00:00:00 Screening for malignant neoplasm of colon (procedure) [code = 791751352] [facility] Future Scheduled Test 1962 00:00:00 Sigmoidoscopy [code = Sigmoidoscopy] [facility] Future Scheduled Test 1962 00:00:00 Screening for malignant neoplasm of breast (procedure) [code = 384958395] [facility] Future Scheduled Test 1962 00:00:00 CT Colonography (combo) [code = CT Colonography (combo)] [facility] Future Scheduled Test 1962 00:00:00 Screening for malignant neoplasm of colon (procedure) [code = 309187206] [facility] Future Scheduled Test 1962 00:00:00 Screening for malignant neoplasm of colon (procedure) [code = 028205205] [facility] Future Scheduled Test 1962 00:00:00 Screening for malignant neoplasm of colon (procedure) [code = 540854422] [facility] Future Scheduled Test 1962 00:00:00 Screening for malignant neoplasm of colon (procedure) [code = 011282750] [facility] Future Scheduled Test 1962 00:00:00 Sigmoidoscopy [code = Sigmoidoscopy] [facility] Future Scheduled Test 1962 00:00:00 Screening for malignant neoplasm of breast (procedure) [code = 632454431] [facility] Future Scheduled Test 1962 00:00:00 CT Colonography (combo) [code = CT Colonography (combo)] [facility] Future Scheduled Test 1962 00:00:00 Screening for malignant neoplasm of colon (procedure) [code = 227099846] [facility] Future Scheduled Test 1962 00:00:00 Screening for malignant neoplasm of colon (procedure) [code = 990479735] [facility] Future Scheduled Test 1962 00:00:00 Screening for malignant neoplasm of colon (procedure) [code = 913594576] [facility] Future Scheduled Test 1962 00:00:00 Screening for malignant neoplasm of colon (procedure) [code = 201564194] [facility] Future Scheduled Test 1962 00:00:00 Sigmoidoscopy [code = Sigmoidoscopy] [facility] Future Scheduled Test 1962 00:00:00 Screening for malignant neoplasm of breast (procedure) [code = 310345196] [facility] Future Scheduled Test 1962 00:00:00 CT Colonography (combo) [code = CT Colonography (combo)] [facility] Future Scheduled Test 1962 00:00:00 Screening for malignant neoplasm of colon (procedure) [code = 028043687] [facility] Future Scheduled Test 1962 00:00:00 Screening for malignant neoplasm of colon (procedure) [code = 625685296] [facility] Future Scheduled Test 1962 00:00:00 Screening for malignant neoplasm of colon (procedure) [code = 308766927] [facility] Future Scheduled Test 1962 00:00:00 Screening for malignant neoplasm of colon (procedure) [code = 188616183] [facility] Future Scheduled Test 1962 00:00:00 Sigmoidoscopy [code = Sigmoidoscopy] [facility] Future Scheduled Test 1962 00:00:00 Screening for malignant neoplasm of breast (procedure) [code = 821058147] [facility] Future Scheduled Test 1962 00:00:00 CT Colonography (combo) [code = CT Colonography (combo)] [facility] Future Scheduled Test 1962 00:00:00 Screening for malignant neoplasm of colon (procedure) [code = 781433100] [facility] Future Scheduled Test 1962 00:00:00 Screening for malignant neoplasm of colon (procedure) [code = [id number]] [facility] Future Scheduled Test 1962 00:00:00 Screening for malignant neoplasm of colon (procedure) [code = 282792790] [facility] Future Scheduled Test 1962 00:00:00 Screening for malignant neoplasm of colon (procedure) [code = 096557083] [facility] Future Scheduled Test 1962 00:00:00 Sigmoidoscopy [code = Sigmoidoscopy] [facility] Future Scheduled Test 1962 00:00:00 Screening for malignant neoplasm of breast (procedure) [code = 385263322] [facility] Future Scheduled Test 1962 00:00:00 CT Colonography (combo) [code = CT Colonography (combo)] [facility] Future Scheduled Test 1962 00:00:00 Screening for malignant neoplasm of colon (procedure) [code = 432665429] [facility] Future Scheduled Test 1962 00:00:00 Screening for malignant neoplasm of colon (procedure) [code = 357996330] [facility] Future Scheduled Test 1962 00:00:00 Screening for malignant neoplasm of colon (procedure) [code = 311523913] [facility] Future Scheduled Test 1962 00:00:00 Screening for malignant neoplasm of colon (procedure) [code = 608206083] [facility] Future Scheduled Test 1962 00:00:00 Sigmoidoscopy [code = Sigmoidoscopy] [facility] Future Scheduled Test 1962 00:00:00 Screening for malignant neoplasm of breast (procedure) [code = 923768179] [facility] Future Scheduled Test 1962 00:00:00 CT Colonography (combo) [code = CT Colonography (combo)] [facility] Future Scheduled Test 1962 00:00:00 Screening for malignant neoplasm of colon (procedure) [code = [id number]] [facility] Future Scheduled Test 1962 00:00:00 Screening for malignant neoplasm of colon (procedure) [code = 786877028] [facility] Future Scheduled Test 1962 00:00:00 Screening for malignant neoplasm of colon (procedure) [code = 340535539] [facility] Future Scheduled Test 1962 00:00:00 Screening for malignant neoplasm of colon (procedure) [code = 575633298] [facility] Future Scheduled Test 1962 00:00:00 Sigmoidoscopy [code = Sigmoidoscopy] [facility] Future Scheduled Test 1962 00:00:00 Screening for malignant neoplasm of breast (procedure) [code = 041675677] [facility] Future Scheduled Test 1962 00:00:00 CT Colonography (combo) [code = CT Colonography (combo)] [facility] Future Scheduled Test 1962 00:00:00 Screening for malignant neoplasm of colon (procedure) [code = 390441474] [facility] Future Scheduled Test 1962 00:00:00 Screening for malignant neoplasm of colon (procedure) [code = 400582967] [facility] Future Scheduled Test 1962 00:00:00 Screening for malignant neoplasm of colon (procedure) [code = 059733623] [facility] Future Scheduled Test 1962 00:00:00 Screening for malignant neoplasm of breast (procedure) [code = 836622650] [facility] Future Scheduled Test 1962 00:00:00 Screening for malignant neoplasm of colon (procedure) [code = 000785710] [facility] Future Scheduled Test 1962 00:00:00 Sigmoidoscopy [code = Sigmoidoscopy] [facility] Future Scheduled Test 1962 00:00:00 CT Colonography (combo) [code = CT Colonography (combo)] [facility] Future Scheduled Test 1962 00:00:00 Screening for malignant neoplasm of colon (procedure) [code = 864590180] [facility] Future Scheduled Test 1962 00:00:00 Screening for malignant neoplasm of breast (procedure) [code = 963118473] [facility] Future Scheduled Test 1962 00:00:00 CT Colonography (combo) [code = CT Colonography (combo)] [facility] Future Scheduled Test 1962 00:00:00 Screening for malignant neoplasm of colon (procedure) [code = 448402000] [facility] Future Scheduled Test 1962 00:00:00 Screening for malignant neoplasm of colon (procedure) [code = 774677641] [facility] Future Scheduled Test 1962 00:00:00 Screening for malignant neoplasm of colon (procedure) [code = 704605519] [facility] Future Scheduled Test 1962 00:00:00 Screening for malignant neoplasm of colon (procedure) [code = 149173063] [facility] Future Scheduled Test 1962 00:00:00 Screening for malignant neoplasm of colon (procedure) [code = 172387240] [facility] Future Scheduled Test 1962 00:00:00 Sigmoidoscopy [code = Sigmoidoscopy] [facility] Future Scheduled Test 1962 00:00:00 Screening for malignant neoplasm of colon (procedure) [code = 730508843] [facility] Future Scheduled Test 1962 00:00:00 Screening for malignant neoplasm of colon (procedure) [code = 918856281] [facility] Future Scheduled Test 1962 00:00:00 Screening for malignant neoplasm of breast (procedure) [code = 806005725] [facility] Future Scheduled Test 1962 00:00:00 Sigmoidoscopy [code = Sigmoidoscopy] [facility] Future Scheduled Test 1962 00:00:00 CT Colonography (combo) [code = CT Colonography (combo)] [facility] Future Scheduled Test 1962 00:00:00 Screening for malignant neoplasm of colon (procedure) [code = 953469001] [facility] Future Scheduled Test 1962 00:00:00 Screening for malignant neoplasm of colon (procedure) [code = 673004702] [facility] Future Scheduled Test 1962 00:00:00 Screening for malignant neoplasm of colon (procedure) [code = 568384253] [facility] Future Scheduled Test 1962 00:00:00 Screening for malignant neoplasm of colon (procedure) [code = 229371710] [facility] Future Scheduled Test 1962 00:00:00 Sigmoidoscopy [code = Sigmoidoscopy] [facility] Future Scheduled Test 1962 00:00:00 Screening for malignant neoplasm of breast (procedure) [code = 805719153] [facility] Future Scheduled Test 1962 00:00:00 CT Colonography (combo) [code = CT Colonography (combo)] [facility] Future Scheduled Test 1962 00:00:00 Screening for malignant neoplasm of colon (procedure) [code = 535481373] [facility] Future Scheduled Test 1962 00:00:00 Screening for malignant neoplasm of colon (procedure) [code = 867730534] [facility] Future Scheduled Test 1962 00:00:00 Screening for malignant neoplasm of colon (procedure) [code = 244843882] [facility] Future Scheduled Test 1962 00:00:00 Screening for malignant neoplasm of colon (procedure) [code = 790385547] [facility] Future Scheduled Test 1962 00:00:00 Sigmoidoscopy [code = Sigmoidoscopy] [facility] Future Scheduled Test 1962 00:00:00 Screening for malignant neoplasm of breast (procedure) [code = 799200426] [facility] Future Scheduled Test 1962 00:00:00 CT Colonography (combo) [code = CT Colonography (combo)] [facility] Future Scheduled Test 1962 00:00:00 Screening for malignant neoplasm of colon (procedure) [code = 849751753] [facility] Future Scheduled Test 1962 00:00:00 Screening for malignant neoplasm of colon (procedure) [code = 512493412] [facility] Future Scheduled Test 1962 00:00:00 Screening for malignant neoplasm of colon (procedure) [code = 533924967] [facility] Future Scheduled Test 1962 00:00:00 Screening for malignant neoplasm of colon (procedure) [code = 649305845] [facility] Future Scheduled Test 1962 00:00:00 Sigmoidoscopy [code = Sigmoidoscopy] [facility] Future Scheduled Test 1962 00:00:00 Screening for malignant neoplasm of breast (procedure) [code = 016229299] [facility] Future Scheduled Test 1962 00:00:00 CT Colonography (combo) [code = CT Colonography (combo)] [facility] Future Scheduled Test 1962 00:00:00 Screening for malignant neoplasm of colon (procedure) [code = 171286497] [facility] Future Scheduled Test 1962 00:00:00 Screening for malignant neoplasm of colon (procedure) [code = 980270148] [facility] [facility] Future Scheduled Test 1962 00:00:00 Screening for malignant neoplasm of colon (procedure) [code = 647485438] [facility] Future Scheduled Test 1962 00:00:00 Screening for malignant neoplasm of colon (procedure) [code = 028386587] [facility] Future Scheduled Test 1962 00:00:00 Sigmoidoscopy [code = Sigmoidoscopy] [facility] Future Scheduled Test 1962 00:00:00 Screening for malignant neoplasm of breast (procedure) [code = 302294040] [facility] Goal Plan of Care Not e [code = 67311-2] Goal Plan of Care Not e [code = 13974-8] Goal Plan of Care Not e [code = 92884-4] Goal Plan of Care Not e [code = 02432-3] Goal Plan of Care Not e [code = 63657-3] Goal Plan of Care Not e [code = 78678-3] Goal Plan of Care Not e [code = 93898-1] Goal Plan of Care Not e [code = 38859-3] Goal Plan of Care Not e [code = 46771-8] Goal Plan of Care Not e [code = 59269-5] Goal Plan of Care Not e [code = 80945-8] Goal Plan of Care Not e [code = 72300-8] Goal Plan of Care Not e [code = 81529-4] Goal Plan of Care Not e [code = 10876-1] Goal Plan of Care Not e [code = 09860-3] Goal Plan of Care Not e [code = 50195-3] Goal Plan of Care Not e [code = 95483-1] Goal Plan of Care Not e [code = 31336-4] Goal Plan of Care Not e [code = 02943-0] Goal Plan of Care Not e [code = 50866-4] Goal Plan of Care Not e [code = 63997-3] Goal Plan of Care Not e [code = 33454-9] Goal Plan of Care Not e [code = 38751-9] Goal Plan of Care Not e [code = 81177-3] Goal Plan of Care Not e [code = 66574-4] Goal Plan of Care Not e [code = 61679-3] Goal Plan of Care Not e [code = 58036-7] Goal Plan of Care Not e [code = 88126-4] Goal Plan of Care Not e [code = 36476-9] Goal Plan of Care Not e [code = 79896-1] Goal Plan of Care Not e [code = 40618-8] Goal Plan of Care Not e [code = 92653-2] Goal Plan of Care Not e [code = 41069-9] Goal Plan of Care Not e [code = 99493-5] Goal Plan of Care Not e [code = 28763-1] Encounters Start Date/Time End Date/Time Encounter Type Admission Type Attending Clinicians Care Facility Care Department Encounter ID Source 2024-10-12 12:23:00 2024-10-16 14:05:00 Inpatient Emergency JOHN SINGH [facility] General Medicine [id number] [facility] 2024-10-12 12:23:00 2024-10-16 14:05:00 Hospital Encounter Tim Castillo Tope Sanchez Silva Torriani, Ronald Charly [facility] 1.840.114 350.1.13.70 8.2.7.2.686 [id number] [facility] 2024-09-23 00:00:00 2024-09-23 09:11:30 Transition of Care Fredo, Karo Kendrick Fredo Karo Kendrick SINDHU CARTWRIGHT 1.2840.114 350.1.13.10 4.2.7.2.686 [id number] [facility] 2024-09-17 13:17:00 2024-09-20 16:58:00 Outpatient X CYNDEE MARTÍNEZ [facility] [id number] [facility] 2024-09-17 13:17:00 2024-09-20 16:58:00 Hospital Encounter Mackenzie Goyal Jelani [facility] 1.2840.114 350.1.13.10 4.2.7.2.686 [id number] [facility] 2024-08-08 13:00:00 2024-08-08 13:00:00 Outpatient STEVEN ROBERTO CRAIG [facility] [id number] [facility] 2024-07-10 00:00:00 2024-07-12 08:17:48 Letter (Out) Megan Starkey [facility] 1.2.840.114 350.1.13.10 4.2.7.2.686 [id number] [facility] 2024-06-28 13:12:59 2024-06-28 13:12:59 Outpatient SFA [facility] [id number] Kamar Mcmahan 2024-06-28 00:00:00 2024-06-28 00:00:00 Outpatient Visit SFA [id number] Kamar Mcmahan 2024-06-03 00:00:00 2024-06-03 00:00:[address] [facility] [id number] [facility] 2024-05-22 10:37:00 2024-05-22 20:30:00 Hospital Encounter Estella Kohler Alok [facility] [id number] [facility] 2024-05-22 15:37:56 2024-05-22 15:37:56 Anesthesia Event Ebony Ferrera Micallia [facility] [id number] [facility] 2024-05-22 00:00:00 2024-05-22 00:00:[address] [facility] [id number] [facility] 2024-05-22 00:00:00 2024-05-22 00:00:00 Travel [facility] [id number] [facility] 2024-02-19 11:00:00 2024-02-19 11:00:00 Outpatient STEVEN ROBERTO CRAIG [facility] [id number] [facility] 2024-01-19 11:00:00 2024-01-19 13:34:59 Outpatient STEVEN ROBERTO CRAIG [facility] [id number] [facility] 2024-01-19 11:00:00 2024-01-19 13:34:59 Ancillary Visit Blanka Henning Craig L [facility] 1..840.114 350.1.13.10 4.2.7.2.686 [id number] [facility] 2024-01-19 00:00:00 2024-01-19 00:00:00 Orders Only Doctor Unassigned, Kreamer [facility] 1..840.114 350.1.13.10 4.2.7.2.686 [id number] [facility] 2024-01-10 10:41:25 2024-01-10 10:41:25 Outpatient [facility] [id number] Kamar Mcmahan 2024-01-02 15:15:00 2024-01-02 16:41:01 Outpatient STEVEN ROBERTO CRAIG [facility] [id number] [facility] 2024-01-02 15:15:00 2024-01-02 16:00:00 Ancillary Visit [facility] 1..840.114 350.1.13.10 4.2.7.2.686 [id number] [facility] 2023-12-19 13:00:00 2023-12-19 13:53:31 Outpatient STEVEN ROBERTO CRAIG [facility] [id number] [facility] 2023-12-19 13:00:00 2023-12-19 13:53:31 Ancillary Visit Nellie Newsome Craig L [facility] 1.2.840.114 350.1.13.10 4.2.7.2.686 [id number] [facility] 2023-10-31 11:27:12 2023-10-31 11:27:12 Outpatient [facility] [id number] Kamar Mcmahan 2023-10-30 11:40:45 2023-10-30 11:40:45 Outpatient [facility] [id number] Kamar Mcmahan 2023-09-13 00:00:00 2023-09-13 00:00:[address] [facility] [id number] [facility] 2023-07-11 00:00:00 2023-07-11 00:00:[address] [facility] [id number] [facility] 2023-06-15 00:00:00 2023-06-15 00:00:00 [id number] [facility] 2023-06-15 00:00:00 2023-06-15 00:00:00 [facility] [id number] [facility] 2023-06-14 11:00:00 2023-06-14 23:59:00 Hospital Encounter Mayra Healy Neal [facility] [id number] [facility] 2023-06-14 08:25:00 2023-06-14 19:20:00 Hospital Encounter Enmanuel Berrios [facility] [id number] [facility] 2023-06-14 11:00:00 2023-06-14 11:30:00 Surgery Virtual, Surgeon [facility] [id number] [facility] 2023-06-14 00:00:00 2023-06-14 00:00:00 Travel [facility] [id number] [facility] 2023-06-13 00:00:00 2023-06-13 00:00:00 Orders Only Mayra Healy [facility] [id number] [facility] 2023-06-07 09:55:20 2023-06-07 09:55:20 Outpatient [facility] [id number] Kamar Mcmahan 2023-06-06 11:32:53 2023-06-06 11:32:53 Outpatient [facility] [id number] Kamar Mcmahan 2023-06-05 00:00:00 2023-06-05 00:00:[address] [facility] [id number] [facility] 2023-05-31 11:00:00 2023-05-31 11:30:00 Surgery Virtual, Surgeon [facility] [id number] [facility] 2023-05-31 07:14:00 2023-05-31 07:14:00 Hospital Encounter Kip Molina Jennifer [facility] [id number] [facility] 2023-05-29 09:20:00 2023-05-29 12:20:20 Office Visit Pollo Wagoner [facility] [id number] [facility] 2023-05-29 09:05:00 2023-05-29 09:20:[address] [facility] [id number] [facility] 2023-05-18 10:08:03 2023-05-18 23:59:00 Hospital Encounter Pollo Wagoner [facility] [id number] [facility] 2023-05-18 09:30:00 2023-05-18 10:07:00 Hospital Encounter Pollo Wagoner [facility] [id number] [facility] 2023-05-17 13:07:32 2023-05-17 23:59:00 Hospital Encounter Pollo Wagoner [facility] [id number] [facility] 2023-05-17 13:00:00 2023-05-17 13:06:00 Hospital Encounter Pollo Wagoner [facility] [id number] [facility] 2023-05-12 09:20:00 2023-05-12 10:48:50 Office Visit Pollo Mojica [facility] [id number] [facility] 2023-05-12 10:05:00 2023-05-12 10:20:[address] [facility] [id number] [facility] 2023-05-11 09:00:00 2023-05-11 09:30:00 Surgery Virtual, Surgeon [facility] [id number] [facility] 2023-05-11 09:00:00 2023-05-11 09:00:00 Hospital Encounter Monet Gavinrolaarabella Blankenship [facility] [id number] [facility] 2023-05-11 09:00:00 2023-05-11 09:00:[address] [facility] [id number] [facility] 2023-05-04 00:00:00 2023-05-04 00:00:[address] [facility] [id number] [facility] 2023-04-28 13:00:00 2023-04-28 15:18:42 Office Visit Pollo Wagoner [facility] [id number] [facility] 2023-04-27 00:00:00 2023-04-27 00:00:00 Orders Only Elsi Gil [facility] [id number] [facility] 2023-04-26 00:00:00 2023-04-26 00:00:[address] [facility] [id number] [facility] 2023-04-25 00:00:00 2023-04-25 00:00:00 Telephone Hill, Jung Trotter [facility] [id number] [facility] 2023-04-20 00:00:00 2023-04-20 00:00:[address] [facility] [id number] [facility] 2023-04-20 00:00:00 2023-04-20 00:00:00 Orders Only Elsi Gil [facility] [id number] [facility] 2023-04-19 00:00:00 2023-04-19 00:00:00 Orders Only Mayra Healy [facility] [id number] [facility] 2023-04-12 11:00:00 2023-04-12 12:00:00 Office Visit Rusty Nguyễn [facility] [id number] [facility] 2023-04-12 00:00:00 2023-04-12 00:00:[address] [facility] [id number] [facility] 2023-04-10 00:00:00 2023-04-10 00:00:[address] [facility] [id number] [facility] 2023-04-06 00:00:00 2023-04-06 00:00:[address] [facility] [id number] [facility] 2023-04-04 10:30:00 2023-04-04 11:00:00 Office Visit Elsi Boo [facility] [id number] [facility] 2023-03-29 00:00:00 2023-03-29 00:00:00 Telephone MyronMary Jonenita Rose Marie [facility] [id number] [facility] 2023-03-28 00:00:00 2023-03-28 00:00:[address] [facility] [id number] [facility] 2023-03-24 00:00:00 2023-03-24 00:00:[address] [facility] [id number] [facility] 2023-03-21 00:00:00 2023-03-21 00:00:00 Telephone Monet, Tanrolaarabella Blankenship [facility] [id number] [facility] 2023-03-14 07:29:36 2023-03-14 23:59:00 Hospital Encounter Mayra Healy [facility] [id number] [facility] 2023-03-13 13:30:17 2023-03-13 13:30:17 Outpatient S[facility] [id number] Kamar Mcmahan 2023-02-28 17:34:06 2023-02-28 17:34:06 Outpatient SFA [facility] [id number] Kamar Ramos Marj 2023-02-07 09:50:41 2023-02-07 09:50:41 Outpatient SFA [facility] [id number] Kamar Mcmahan 2023-01-24 13:30:00 2023-01-24 14:00:00 Office Visit KASEY Monet Gavinrolaarabella Blankenship [facility] [id number] [facility] 2023-01-23 00:00:00 2023-01-23 00:00:[address] [facility] [id number] [facility] 2023-01-03 00:00:00 2023-01-03 00:00:[address] [facility] [id number] [facility] 2022-11-16 09:04:19 2022-11-16 09:04:19 Outpatient SFA [facility] [id number] Kamar Mcmahan 2022-10-28 00:00:00 2022-10-28 00:00:[address] [facility] [id number] [facility] 2022-08-19 11:07:33 2022-08-19 11:07:33 Outpatient [facility] [id number] Kamar Mcmahan 2022-07-29 00:00:00 2022-07-29 00:00:00 Outpatient Visit [id number] 2021-12-06 00:00:00 2021-12-06 00:00:00 Telephone Kayli Min [facility] [id number] [facility] 2021-11-05 00:00:00 2021-11-05 00:00:00 Telephone Kayli Min [facility] [id number] [facility] 2021-09-14 00:00:00 2021-09-14 00:00:00 Telephone Kayli Min [facility] [id number] [facility] 2021-08-10 00:00:00 2021-08-10 00:00:00 Out[facility] [id number] [facility] 2021-08-02 00:00:00 2021-08-02 00:00:00 Outpatient VAISHNAVI SANCHES [facility] [id number] [facility] 2021-06-15 00:00:00 2021-06-15 00:00:00 Outpatient [facility] [id number] [facility] 2021-04-16 00:00:00 2021-04-16 00:00:00 Outpatient [facility]NAVI [facility] [id number] [facility] Results Test Description Test Time Test Comments Results Result Co mments Source [facility] Fungal [id number] 06:48:59* Test Item Value Reference Range Interpretation Comme nts Pily auris Culture (test code = 69970-9) No Pily auris isolated [facility] [id number] 20:16:56* Test Item Value Reference Range Interpretation Comme nts ANTIBODY ID (test code = 245) Inconclusive Specimen is QNS draw 2 tubes at next collectionPerformed at [facility] Laboratory Services - [facility] Blood [address] [address] Free: [phone] No. [id number] [facility] [id number] 12:23:39EXAM: CT ABDOMEN PELVIS W CONTRAST HISTORY: 64 years-old Female; Abdominal distension TECHNIQUE: Contiguous axial imaging from the level of the lung basesthrough the iliac crests was performed with intravenous contrast. Coronaland sagittal reconstructions were obtained. COMPARISON: None FINDINGS: LO WER THORAX: The lung bases are clear. Sliding-type hiatal hernia withesophageal varices. LIVER: Cirrhosis with changes portal hypertension including splenomegaly,gastric and esophageal varices, and recanalization of umbilical vein. 2.4cm hypodense peripherally calcified lesion in liver segment 7 rem ainsindeterminate and may reflect prior infectious disease or liver mass withlocal treatment such as ablation or cryoablation. GALLBLADDER AND BILIARY TREE: Mild gallbladder wall thickening is likelydue to underlying cirrhosis. No radiopaque gallstone. No intra orextrahepatic biliary ductal dilation. SPLEEN: The spleen is normal. PANCREAS: No ductal dilation or masses. ADRENAL GLANDS: No adrenal nodule.. KIDNEYS, URETERS, AND BLADDER: ?Normal renal size, morphology, andenhancement. ?No solid masses. ?No stones or hydronephrosis. ?The bladderis adequately distended and appears unremarkable. REPRODUCTIVE ORGANS: 3.6 cm uterine subserosal fibroid with calcification.Smaller calcified fibroid isalso seen at the lower uterine segment. GI TRACT: No dilation or bowel wall thickening. The bowel loops aredistended with fluid and stool. Normal appendix. PERITONEUM AND RETROPERITONEUM: No intra-abdominal free air or fluidcollection. LYMPH NODES: No lymphadenopathy. VESSELS: The vessels appear unremarkable. BONES AND SOFT TISSUES: No suspicious osseous lesions. ?No fractures.[facility] HospitalTransthoracic echo (TTE) [id number] 19:42:07* Test Item Value Reference Range Interpretation Comme nts Height (test code = 5925554838) 65 in Weight (test code = 8679517544) 174 lbs Systolic BP (test code = 5468153658) 160 mmHg Diastolic BP (test code = 9575610950) 88 mmHg Heart Rate (test code = 2366637366) 103 bpm BSA (test code = 9362899849) 1.86 m2 Ao root diam (test code = 9853027942) 2.90 cm Aortic root (test code = 1805978737) 2.9 cm Ao root annulus (test code = 5199656424) 2.9 cm LA size (test code = 6127010555) 3.5 cm LVOT diameter (test code = 7309538465) 1.86 cm LVOT area (test code = 5354358134) 2.70 cm2 LVIDD (test code = 4009800373) 5.00 cm Left Ventricular End Diastolic Volume by Teichholz Method (test code = 3079421) 120.7 mL IVS (test code = 7527374835) 0.75 cm Interventricular Septum Diastolic Thickness by 2D (test code = 0621877) 0.75 cm LVPWD (test code = 1158135996) 0.86 cm PW (test code = 6377211696) 0.86 cm 0.6-1.1 EF(Teich) (test code = 3562187162) 70.40 % LVIDS (test code = 0734119280) 3.00 cm Left Ventricular End Systolic Volume by Teichholz Method (test code = 5241662) 35.8 mL FS (test code = 8577671726) 40 % EF - 2D (test code = 16792327) 70.40 % TR [address] (test code = 2276833168) 150.8 cm/s Triscuspid Valve Regurgitation Peak Gradient (test code = 8828087303) 9.1 mmHg Radiology Study observation (narrative) (test code = 53290-5) LAMONT (test code = LAMONT) ?Left?Ventricle: Left ventricle size is normal. Normal wall thickness. Normal wall motion. Normal systolic function with a visually estimated EF of 60 - 65%. ?Tricuspid?Valve: Trace transvalvular regurgitation. Insufficient tricuspid regurgitation jet to estimate RVSP . ?Patient was combative during this study. Patient ripped the probe from the cartographic technician hand, hence further echo images was not completed. Please order echo again to complete if clinically indicated. Left VentricleLeft ventricle size is normal. Normal wall thickness. Normal wall motion. Normal systolic function with a visually estimated EF of 60 - 65%.Right VentricleNot well visualized.Left AtriumLeft atrium size is normal.Right AtriumNot well visualized.Mitral ValveMitral valve structure is grossly normal. Trace transvalvular regurgitation.Tricusp id ValveNot well visualized. Trace transvalvular regurgitation. Insufficient tricuspid regurgitation jet to estimate RVSP .Aortic ValveNot assessed. Aortic valve opens well. Mildly calcified cusps.Pulmonic ValveNot well visualized.Ascending AortaNormal sized aortic root.PericardiumNo pericardial effusion.Study DetailsStudy quality experienced technical difficulty. A limited echocardiogram was performed using 2D, color flow Doppler and spectral Doppler. Technical difficulties due to uncooperative patient. [facility] WO [id number] 13:31:00EXAM: CT HEAD WO CONTRAST HISTORY: 64 years-old Female; Mental status change, unknown cause Memory loss . TECHNIQUE: Axial CT of the head was performed and reconstructed at 5 mmintervals. Coronal andsagittal reformatted images were generated. COMPARISON: None FINDINGS: The ventricles and sulci areprominent but within normal limits for thepatient's age. No hydrocephalus, midline shift or pathological extra-axialfluid collection is present. The basal cisterns are unremarkable. No acute intracranial hemorrhage or significant mass effect is visualized.No parenchymal attenuation abnormality is seen. The jain-white matterdifferentiation is preserved. ?Nonspecific left lenticulostriatecalcification. The mastoid air cells and paranasal air sinuses are clear. The calvariumand central skull base are unremarkable.[facility] HospitalCb with [id number] 12:23:45* Test Item Value Reference Range Interpretation Comme nts WBC (test code = 6690-2) 13.88 4.30-11.10 H RBC (test code = 789-8) 2.88 3.93-5.25 L HGB (test code = 718-7) 8.4 g/dL 11.6-15.0 L HCT (test code = 4544-3) 26.1 % 35.7-45.2 L MCV (test code = 787-2) 90.6 fL 80.6-95.5 MCH (test code = 785-6) 29.2 pg 25.9-32.8 MCHC (test code = 786-4) 32.2 g/dL 31.6-35.1 RDW-SD (test code = 69709-5) 56.8 fL 39.0-49.9 H RDW-CV (test code = 788-0) 18.0 % 12.0-15.5 H PLT (test code = 777-3) 153 166-358 L MPV (test code = 00950-4) 10.5 fL 9.5-12.9 NRBC/100 WBC (test code = 9182805011) 0.0 0.0-10.0 NRBC x10^3 (test code = 8708466380) See_Comment [Automated messa ge] The system which generated this result transmitted reference range: 10*3/?L. The reference range was not used to interpret this result as normal/abnormal. SEG % (test code = 39080-4) 52 % 33-76 LYMPH % (test code = 09045-3) 28 % 14-54 MONO % (test code = 02688-9) 20 % 0-4 H ANC (test code = 753-4) 7.22 10*3/uL 1.88-7.09 H Lab Interpretation (test code = 07198-0) Abnormal [facility] HospitalReticulocytes [id number] 11:21:40* Test Item Value Reference Range Interpretation Comme nts RETIC Count Automated (test code = 4936156450) 6.05 % 0.51-1.90 H RETIC Absolute Count (test c ode = 8624338445) 0.1718 0.0230-0.0950 H IRF % (test code = 6138694615) 26.80 % 2.10-12.60 H RETIC-HE (test code = 0224154384) 33.1 pg 28.1-35.8 Lab Interpretation (test cod e = 78623-2) Abnormal [facility] Hospital[facility] 1 [id number] 00:26:15STUDY: SINGLE FRONTAL VIEW OF THE CHEST ORDERING PHYSICIAN: MACKENZIE GOYAL DATE: ?09/17/2024 6:15 PM REASON FOR EXAM: ?decompensated cirrhosis. HS:Y. TECHNIQUE: ?Frontal view of the chest COMPARISON: None available FINDINGS: The cardiomediastinal silhouette is normal. The lungs are clear. ? The remaining osseous and soft tissue structures are unremarkable.[facility] WITH [id number] 23:36:20* Test Item Value Reference Range Interpretation Comme nts WBC (test code = 6690-2) 14.36 4.30-11.10 H RBC (test code = 789-8) 2.75 3.93-5.25 L HGB (test code = 718-7) 7.9 g/dL 11.6-15.0 L HCT (test code = 4544-3) 25.0 % 35.7-45.2 L MCV (test code = 787-2) 90.9 fL 80.6-95.5 MCH (test code = 785-6) 28.7 pg 25.9-32.8 MCHC (test code = 786-4) 31.6 g/dL 31.6-35.1 RDW-SD (test code = 41600-6) 57.0 fL 39.0-49.9 H RDW-CV (test code = 788-0) 17.8 % 12.0-15.5 H PLT (test code = 777-3) 131 166-358 L MPV (test code = 96551-9) 10.4 fL 9.5-12.9 NRBC/100 WBC (test code = 9821815435) 0.0 0.0-10.0 NRBC x10^3 (test code = 2315255597) See_Comment [Automated messa ge] The system which generated this result transmitted reference range: 10*3/?L. The reference range was not used to interpret this result as normal/abnormal. GRAN MAT (NEUT) % (test code = 770-8) 59.7 % IMM GRAN % (test code = 7696951893) 2.30 % LYMPH % (test code = 736-9) 22.8 % MONO % (test code = 5905-5) 14.8 % EOS % (test code = 713-8) 0.0 % BASO % (test code = 706-2) 0.4 % GRAN MAT x10^3(ANC) (test code = 9925974519) 8.57 10*3/uL 1.88-7.09 H IMM GRAN x10^3 (test code = 7785184526) 0.33 10*3/uL 0.00-0.06 H LYMPH x10^3 (test code = 731-0) 3.28 10*3/uL 1.32-3.29 MONO x10^3 (test code = 742-7) 2.12 10*3/uL 0.33-0.92 H EOS x10^3 (test code = 711-2) 0.03-0.39 L BASO x10^3 (test code = 704-7) 0.06 10*3/uL 0.01-0.07 POLYCHROMASIA (test code = 11381-0) 2+ See_Comment [Automated messa ge] The system which generated this result transmitted reference range: 2+. The reference range was not used to interpret this result as normal/abnormal. TOXIC CHANGES (test code = 803-7) Present A Lab Interpretation (test code = 69165-9) [facility]normal [facility] Stimulating [id number] 23:01:14 * Test Item Value Reference Range Interpretation Comme nts TSH (test code = 7373755921) 1.77 0.45-4.70 Biotin has been reported to cause a negative bias, interpret results relative to patient's use of biotin. Lab Interpretation (test code = 23382-8) Normal [facility] HospitalLactic Acid Whole [id number] 22:47:43* Test Item Value Reference Range Interpretation Comme nts LACTIC ACID (test code = 9555811445) 1.80 mmol/L 0.50-2.20 Lab Interpretation (test cod e = 45623-5) Normal [facility] HospitalETHANOL2024-10-29 22:33:39 ALCOHOL<10mg/dL09/17/2024 5:33 PM [facility]<10 Kwwrfinl82-736 Toxic>100 Depression of [employer]PERATOR>400 Fatalities ReportedMetropolitan Methodist HospitalAmmonia, [id number] 22:33:34* Test Item Value Reference Range Interpretation Comme nts AMMONIA (test code = 0872917569) 9-33 L Lab Interpretation (test cod e = 18979-2) Abnormal [facility] HospitalCOMP. METABOLIC PANEL ([id number])2024-09-17 22:31:04* Test Item Value Reference Range Interpretation Comme nts NA (test code = 1509853277) 135 mmol/L 135-145 K (test code = 0775231431) 4.3 mmol/L 3.5-5.0 CL (test code = 0715286830) 103 mmol/L 98-108 CO2 TOTAL (test code = 4716645401) 26 mmol/L 23-31 AGAP (test code = 5617320415) 6 2-16 BUN (test code = 8401480202) 18 mg/dL 7-23 GLUCOSE (test code = 6753965741) 118 mg/dL 70-110 H CREATININE (test code = 2160-0) 0.84 mg/dL 0.50-1.04 TOTAL BILI (test code = 5173708615) 2.3 mg/dL 0.1-1.1 H CALCIUM (test code = 0685205667) 8.4 mg/dL 8.6-10.6 L T PROTEIN (test code = 6487015113) 7.9 g/dL 6.3-8.2 ALBUMIN (test code = 7227812277) 3.1 g/dL 3.5-5.0 L ALK PHOS (test code = 6012177238) 107 U/L 34-122 ALTv (test code = 1742-6) 36 U/L 5-35 H AST(SGOT) (test code = 6026066271) 55 U/L 13-40 H eGFR (test code = 67182-3) 78.7 mL/min/1.73m2 CKD-EPI eGFR (2020). Assuming creatinine has been stable day-to-day for at least three months, the eGFR indicates Category G2 (60 - 89 mL/min/1.73 m2) Lab Interpretation (test code = 96972-2) Abnormal [facility] HospitalMagnesium2024-10-29 22:31:04* Test Item Value Reference Range Interpretation Comme nts MAGNESIUM (test code = 2842561487) 2.1 mg/dL 1.7-2.4 Lab Interpretation (test cod e = 21994-3) Normal [facility] HospitalPhosphorus2024-10-29 22:30:44* Test Item Value Reference Range Interpretation Comme nts PHOSPHORUS (test code = 4304628570) 3.3 mg/dL 2.5-5.0 Lab Interpretation (test cod e = 38568-5) Normal [facility] HospitalProthrombin Time / [id number] 22:29:25* Test Item Value Reference Range Interpretation Comme [facility] PROTIME PATIENT (test code = 5964-2) 23.6 10.1-12.6 H INR (test code = 6301-6) 2.0 Normal INR <1.1; Warfarin Therapeutic range 2.0 to 3.0 or 2.5 to 3.5, depending upon the indications. Lab Interpretation (test code = 20893-2) Abnormal [facility] HospitalECG 12 [id number] 20:27:06Ventricular Rate 84 BPMAtrial Rate 84 BPMP-R Interval 132 msQRS Duration 78 msQ-T Interval 370 msQTC Calculation(Bazett) 437 msP Cantrall 43 degreesR Cantrall 62 degreesT [place]rall 72 degrees Normal sinus rhythmNormal ECGNo previous ECGs availableConfirmed by Rick Westbrook ([id number]) on 05/25/2024 8:26:59 [facility]ENSITIV[facility] TROPONIN [id number] 17:11:00* Test Item Value Reference Range Interpretation Comme [facility] HIGH SENSITIVITY TROPONIN I (test code = 2987385) 4 pg/ml <14 The Alinity ci High Sensitivity Troponin-I results should be used in conjunction with other diagnostic information such as ECG, clinical observations and information, and patient symptoms to aid in the diagnosis of PR.POC-Glucose vmmcz9471-94-31 15:35:36* Test Item Value Reference Range Interpretation Comme [facility] POC-Glucose Meter (test code = 1538) 81 mg/dL 70-110 : TESTED AT [facility] [address], [address]: Counseling Services Manager/Heel Seat Sander ID = [id number] for Marlene Regalado Lab Interpretation (test code = 65971-7) Normal [facility] HospitalPOCT-GLUCOSE [id number] 15:35:36* Test Item Value Reference Range Interpretation Comme [facility] POC-GLUCOSE METER (BEAKER) (test code = 1538) 81 mg/dL 70-110 : TESTED AT [facility] [address], [address]: Counseling Services Manager/Heel Seat Sander ID = [id number] for Marlene Regalado HIGH SENSITIVITY TROPONIN [id number] 14:34:48* Test Item Value Reference Range Interpretation Comme nts HIGH SENSITIVITY TROPONIN I (test code = 3179201) 4 pg/ml <14 The Alinity ci High Sensitivity Troponin-I results should be used in conjunction with other diagnostic information such as ECG, clinical observations and information, and patient symptoms to aid in the diagnosis of PR.COMPREHENSIVE METABOLIC [id number] 12:24:15* Test Item Value Reference Range Interpretation Comme nts TOTAL PROTEIN (BEAKER) (test code = 770) 6.7 gm/dL 6.4-8.3 Specimen slightl y hemolyzed ALBUMIN (BEAKER) (test code = 1145) 2.8 g/dL 3.5-5.0 L Specimen slig htly hemolyzed ALKALINE PHOSPHATASE (BEAKER) (test code = 346) 190 U/L 40-150 H BILIRUBIN TOTAL (BEAKER) (test code = 377) 1.9 mg/dL 0.2-1.2 H Specimen slightl y hemolyzed SODIUM (BEAKER) (test code = 381) 139 meq/L 136-145 POTASSIUM (BEAKER) (test code = 379) 4.5 meq/L 3.4-5.1 Specimen sligh tly hemolyzed CHLORIDE (BEAKER) (test code = 382) 110 meq/L 98-107 H CO2 (BEAKER) (test code = 355) 18 meq/L 22-29 L BLOOD UREA NITROGEN (BEAKER) (test code = 354) 14 mg/dL 10-20 CREATININE (BEAKER) (test code = 358) 0.82 mg/dL 0.57-1.11 Specimen slightl y hemolyzed GLUCOSE RANDOM (BEAKER) (test code = 652) 71 mg/dL 70-105 CALCIUM (BEAKER) (test code = 697) 8.4 mg/dL 8.4-10.2 AST (SGOT) (BEAKER) (test code = 353) 75 U/L 5-34 H Specimen slightl y hemolyzed ALT (SGPT) (BEAKER) (test code = 347) 50 U/L <55 Specimen slightl y hemolyzed EGFR (BEAKER) (test code = 1092) 81 mL/min/1.73 sq m Interpretation of eG FR values Stage Description Result G1 Normal or high >=90 G2 Mildly decreased 60-89 G3a Mildly to moderately 45-59 G3b Moderately to severely 30-44 G4 Severly decreased 15-29 G5 Kidney failure <15Reported eGFR is based on the CKD-EPI 2020 equation that does not use a race coefficientEstimated GFR is not as accurate as Creatinine Clearance in predicting glomerular filtration rate. Estimated GFR is not applicable for dialysis patients PROTHROMBIN TIME/[id number] 12:01:30* Test Item Value Reference Range Interpretation Comme nts PROTIME (BEAKER) (test code = 759) 14.8 seconds 11.9-14.2 H INR (BEAKER) (test code = 370) 1.15 <=5.90 RECOMMENDED COUMADIN/WARFARIN INR THERAPY RANGESSTANDARD DOSE: 2.0 - 3.0 Includes: PROPHYLAXIS for venous thrombosis, systemic embolization; TREATMENT for venous thrombosis and/or pulmonary embolus.HIGH RISK: Target INR is 2.5-3.5 for patients with mechanical heart valves.CBC W/PLT COUNT & AUTO DIFFERENTIAL 2024-05-22 12:00:53* Test Item Value Reference Range Interpretation Comme nts WHITE BLOOD CELL COUNT (BEAK ER) (test code = 775) 5.2 K/ L 3.5-10.5 RED BLOOD CELL COUNT (BEAKER ) (test code = 761) 3.66 M/ L 3.93-5.22 L HEMOGLOBIN (BEAKER) (test co de = 410) 9.1 GM/DL 11.2-15.7 L HEMATOCRIT (BEAKER) (test co de = 411) 30.3 % 34.1-44.9 L MEAN CORPUSCULAR VOLUME (APRIL KER) (test code = 753) 83 fL 79-95 MEAN CORPUSCULAR HEMOGLOBIN (BEAKER) (test code = 751) 24.9 pg 25.6-32.2 L MEAN CORPUSCULAR HEMOGLOBIN CONC (BEAKER) (test code = 752) 30.0 GM/DL 32.2-35.5 L RED CELL DISTRIBUTION WIDTH (BEAKER) (test code = 412) 16.4 % 11.7-14.4 H PLATELET COUNT (BEAKER) (darlin t code = 756) 112 K/CU MM 150-450 L MEAN PLATELET VOLUME (BEAKER ) (test code = 754) 9.9 fL 9.4-12.3 NUCLEATED RED BLOOD CELLS (BEAKER) (test code = 413) 0 /100 WBC 0-0 NEUTROPHILS RELATIVE PERCENT (BEAKER) (test code = 429) 51 % LYMPHOCYTES RELATIVE PERCENT (BEAKER) (test code = 430) 34 % MONOCYTES RELATIVE PERCENT (BEAKER) (test code = 431) 11 % EOSINOPHILS RELATIVE PERCENT (BEAKER) (test code = 432) 3 % BASOPHILS RELATIVE PERCENT (BEAKER) (test code = 437) 0 % NEUTROPHILS ABSOLUTE COUNT (BEAKER) (test code = 670) 2.61 K/ L 1.56-6.13 LYMPHOCYTES ABSOLUTE COUNT (BEAKER) (test code = 414) 1.75 K/ L 1.18-3.74 MONOCYTES ABSOLUTE COUNT (BE JAZLYN) (test code = 415) 0.59 K/ L 0.24-0.36 H EOSINOPHILS ABSOLUTE COUNT (BEAKER) (test code = 416) 0.17 K/ L 0.04-0.36 BASOPHILS ABSOLUTE COUNT (BE JAZLYN) (test code = 417) 0.02 K/ L 0.01-0.08 IMMATURE GRANULOCYTES-RELATI VE PERCENT (BEAKER) (test code = 2801) 0.40 % 0.00-1.00 [id number] 00:00:00Ordered by an unspecified provider.[facility] HospitalIR EMBOLIZATION [id number] 12:41:26 [facility] : 1960 Sex: FChemoembolization. History: Hepatic dome HCC. Modality: Sonography and fluoroscopy. Sedation: Moderate sedation was administered. 1 mg of Versed and 50 mcgof fentanyl IV was used for moderate sedation monitored under mydirection. Total intra-service time of sedation was 120 minutes. Thepatient's vital signs were monitored throughout the procedure andrecorded in the patient's medical record by the nurse. Mallet Cutter: Jose Molina M.D.Can Filler: Dr. Abdalla Approach: Right common femoral artery. [...] The site was upsized toaccept a 5 Tongan vascular sheath. Right common femoral angiogram wasperformed [...] the right hepaticartery.At this point, a 2.8 Tongan microcatheter and microwire were used tointerrogate several [...] hepatic dome tumor.Once appropriate positioning was confirmed, theremainder of thedoxorubicin (approximately 50 mg) was administered. After administrationof the doxorubicin, there continue to be tumoral opacification.Therefore bland embolization was performed with a pproximately one vialof 100-300 particles. Postembolization angiography demonstrated nofurther tumoral opacification.All catheters and wires were removed. Hemostasis of the right commonfemoral arteriotomy was achieved with the Angio-Seal device. Steriledressing applied. IMPRESSION:Impression: Successful bland and chemoembolization of the hepatic dome tumor.Electronically Signed By: Jose Molina06/15/2023 12:43 CDTWorkstation Name: [id number] Dndtauzhuxfh1511-10-34 12:41:26Chemoembolization. History: Hepatic dome HCC. Modality: Sonography and fluoroscopy. Sedation: Moderate sedation was administered. 1 mg of Versed and 50 mcgof fentanyl IV was used for moderate sedation monitored under mydirection. Total intra-service time of sedation was 120 minutes. Thepatient's vital signs were monitored throughout the procedure andrecorded in the patient's medical record by the nurse. Mallet Cutter: Jose Molina M.D. Can Filler: Dr. Abdalla Approach: Right common femoral artery. Estimated blood loss: < 5 cc. Specimen: None. Technique: Informed written consent was obtained. Discussion of risks, benefits,and alternatives were made with the patient. The patient expresse dunderstanding and agreed to proceed. A universal timeout was performedprior to starting the procedure. All elements maximal sterile barriertechnique was utilized for this procedure, including utilization ofsterile scrub solution for skin prep, a large sterile sheet to cover theareas of the patientthat were not prepped, and hand hygiene, mask, headcovering, and sterile gown for performing radiologist and scrubtechnologist. Local anesthesia was administered overlying the right common femoralartery. The right common femoral artery was accessed using amicropuncture needle and ultrasound guidance. The site was upsized toaccept a 5 Tongan vascular sheath. Right common femoral angiogram wasperformed for closure purposes. A reverse curve catheter was advanced into the aorta. The superiormesenteric artery was catheterized, and DSA was performed. Thisdemonstrated no hepatic supply. Delayed angiogram demonstrated patentportal vein. Next, the same base catheter was used to select the originof the celiac artery. This demonstrated tumoral opacification in thehepatic dome, which was supplied by branches of the right hepaticartery. At this point, a 2.8 Tongan microcatheter and microwire were used tointerrogate several [...] (approximately 50 mg) was administered. After administrationof thedoxorubicin, there continue to be tumoral opacification.Therefore bland embolization was performed with approximately one vialof 100-300 particles. Postembolization angiography demonstrated nofurthertumoral opacification. All catheters and wires were removed. Hemostasis of the right commonfemoral arteriotomy was achieved with the Angio-Seal device. Steriledressing applied.[facility] Cancer HospitalHEPATIC FUNCTION [id number] 10:24:45* Test Item Value Reference Range Interpretation Comme nts TOTAL PROTEIN (BEAKER) (test code = 770) 6.9 gm/dL 6.0-8.3 Specimen sligh tly hemolyzed ALBUMIN (BEAKER) (test code = 1145) 2.9 g/dL 3.5-5.0 L Specimen slightl y hemolyzed BILIRUBIN TOTAL (BEAKER) (test code = 377) 1.4 mg/dL 0.2-1.2 H Specimen slightl y hemolyzed BILIRUBIN DIRECT (BEAKER) (test code = 706) 0.7 mg/dL 0.1-0.5 H Specimen slightl y hemolyzed ALKALINE PHOSPHATASE (BEAKER) (test code = 346) 172 U/L 40-150 H AST (SGOT) (BEAKER) (test code = 353) 103 U/L 5-34 H Specimen sligh tly hemolyzed ALT (SGPT) (BEAKER) (test code = 347) 58 U/L 6-55 H Specimen sligh tly hemolyzed Counseling Services Manager ID - MMBASIC METABOLIC [id number] 10:24:44* Test Item Value Reference Range Interpretation Comme nts SODIUM (BEAKER) (test code = 381) 143 meq/L 136-145 POTASSIUM (BEAKER) (test code = 379) 4.4 meq/L 3.5-5.1 Specimen slightl y hemolyzed CHLORIDE (BEAKER) (test code = 382) 107 meq/L 98-107 CO2 (BEAKER) (test code = 355) 29 meq/L 22-29 BLOOD UREA NITROGEN (BEAKER) (test code = 354) 12 mg/dL 7-21 CREATININE (BEAKER) (test code = 358) 0.71 mg/dL 0.57-1.25 Specimen slightl y hemolyzed GLUCOSE RANDOM (BEAKER) (test code = 652) 99 mg/dL 70-105 CALCIUM (BEAKER) (test code = 697) 8.7 mg/dL 8.4-10.2 EGFR (BEAKER) (test code = 1092) 97 mL/min/1.73 sq m Interpretation of eG FR values Stage Description Result G1 Normal or high >=90 G2 Mildly decreased 60-89 G3a Mildly to moderately 45-59 G3b Moderately to severely 30-44 G4 Severly decreased 15-29 G5 Kidney failure <15Reported eGFR is based on the CKD-EPI 2020 equation that does not use a race coefficientEstimated GFR is not as accurate as Creatinine Clearance in predicting glomerular filtration rate. Estimated GFR is not applicable for dialysis patients Counseling Services Manager ID - [id number] W/PLT COUNT & AUTO [id number] 10:23:05* Test Item Value Reference Range Interpretation Comme nts WHITE BLOOD CELL COUNT (BEAK ER) (test code = 775) 4.4 K/ L 3.5-10.5 RED BLOOD CELL COUNT (BEAKER ) (test code = 761) 3.61 M/ L 3.93-5.22 L HEMOGLOBIN (BEAKER) (test co de = 410) 10.7 GM/DL 11.2-15.7 L HEMATOCRIT (BEAKER) (test co de = 411) 33.7 % 34.1-44.9 L MEAN CORPUSCULAR VOLUME (APRIL KER) (test code = 753) 93 fL 79-95 MEAN CORPUSCULAR HEMOGLOBIN (BEAKER) (test code = 751) 29.6 pg 25.6-32.2 MEAN CORPUSCULAR HEMOGLOBIN CONC (BEAKER) (test code = 752) 31.8 GM/DL 32.2-35.5 L RED CELL DISTRIBUTION WIDTH (BEAKER) (test code = 412) 17.2 % 11.7-14.4 H PLATELET COUNT (BEAKER) (darlin t code = 756) 71 K/CU MM 150-450 L MEAN PLATELET VOLUME (BEAKER ) (test code = 754) 10.8 fL 9.4-12.3 NUCLEATED RED BLOOD CELLS (B EAKER) (test code = 413) 0 /100 WBC 0-0 NEUTROPHILS RELATIVE PERCENT (BEAKER) (test code = 429) 41 % LYMPHOCYTES RELATIVE PERCENT (BEAKER) (test code = 430) 46 % MONOCYTES RELATIVE PERCENT (BEAKER) (test code = 431) 13 % EOSINOPHILS RELATIVE PERCENT (BEAKER) (test code = 432) 0 % BASOPHILS RELATIVE PERCENT (BEAKER) (test code = 437) 1 % NEUTROPHILS ABSOLUTE COUNT (BEAKER) (test code = 670) 1.77 K/ L 1.56-6.13 LYMPHOCYTES ABSOLUTE COUNT (BEAKER) (test code = 414) 2.00 K/ L 1.18-3.74 MONOCYTES ABSOLUTE COUNT (BE JAZLYN) (test code = 415) 0.56 K/ L 0.24-0.36 H EOSINOPHILS ABSOLUTE COUNT (BEAKER) (test code = 416) 0.00 K/ L 0.04-0.36 L BASOPHILS ABSOLUTE COUNT (BE JAZLYN) (test code = 417) 0.02 K/ L 0.01-0.08 IMMATURE GRANULOCYTES-RELATI VE PERCENT (BEAKER) (test code = 2801) 0.20 % 0.00-1.00 [id number] 10:16:49* Test Item Value Reference Range Interpretation Comme nts PARTIAL THROMBOPLASTIN TIME (BEAKER) (test code = 760) 34.4 seconds 22.5-36.0 PROTHROMBIN TIME/[id number] 10:16:05* Test Item Value Reference Range Interpretation Comme nts PROTIME (BEAKER) (test code = 759) 16.9 seconds 11.9-14.2 H INR (BEAKER) (test code = 370) 1.46 <=5.90 RECOMMENDED COUMADIN/WARFARIN INR THERAPY RANGESSTANDARD DOSE: 2.0 - 3.0 Includes: PROPHYLAXIS for venous thrombosis, systemic embolization; TREATMENT for venous thrombosis and/or pulmonary embolus.HIGH RISK: Target INR is 2.5-3.5 for patients with mechanical heart valves.MRI abdomen with and without contrast 2023-05-20 15:23:50MRI of the abdomen with and without contrast Clinical History: Gastrointestinal cancer, staging Technique: Multiplanar and multisequence MR images of the abdomen areobtained before and after intravenous contrast administration. Contrastis administered to evaluate neoplasm and vasculature. Comparison: MRI dated March 14, 2023, and April 02, 2021 (performed at [facility]) Discussion: Liveris cirrhotic. A lesion at the right hepatic dome measures 4.0 x3.4 x 2.7 cm, not significant changed since the previous exam. Itdemonstrates mild T1 hyperintensity, heterogeneous enhancement and aprominent pseudocapsule. LI-RADS 5. No new liver mass is identified.Hepatic vasculature is patent. The periumbilical vein is recanalized.Main portal vein measures 16 mm in diameter. No biliary ductal dilatation. Gallbladder is unremarkable. Previouslyseen gallbladder wall edema has resolved. Spleen is b orderline enlarged and measures 12.5 cm axially. Thepancreas, and adrenal glands appear normal. There are several cysts in the kidneys, a few arehemorrhagic/proteinaceous. No hydronephrosis, or renalmass. Trace perihepatic ascites. Varices are present. There is nolymphadenopathy. Visualized bowel is unremarkable. No suspicious bonylesion.[facility] HospitalMR ABDOMEN WITH & WITHOUT IV [id number] 15:23:50 [facility] : 1960 Sex: FMRI of the abdomen with and without contrastClinical History: Gastrointestinal cancer, stagingTechnique: Multiplanar and multisequence MR images of the abdomen areobtained before and after intravenouscontrast administration. Contrastis administered to evaluate neoplasm and vasculature. Comparison: MRI dated March 14, 2023, and April 02, 2021 (performed at [facility])Discussion:Liver is cirrhotic. A lesion at the right hepatic dome measures 4.0 x3.4 x 2.7 cm, not significant changed since the previous exam. Itdemonstrates mild T1 hyperintensity, heterogeneous enhancement and aprominent pseudocapsule. LI-RADS 5. No new liver mass is identified.Hepatic vasculature is patent. The perium bilical vein is recanalized.Main portal vein measures 16 mm in diameter.No biliary ductal dilatation. Gallbladder is unremarkable. Previouslyseen gallbladder wall edema has resolved.Spleen is borderline enlarged and measures 12.5 cm axially. Thepancreas, and adrenal glands appear normal.There are several cysts in the kidneys, a few arehemorrhagic/proteinaceous. No hydronephrosis, or renal mass.Trace perihepatic ascites. Varices are present. There is nolymphadenopathy. Visualized bowel is unremarkable. No suspicious bonylesion. IMPRESSION:Impression:Stable LI-RADS 5 observation in the right hepatic lobe.Cirrhosis and portal hypertension. Trace ascites.Electronically Signed By: Kiki Morocho05/20/2023 15:25 CDTWorkstation Name: [id number] bone scan whole body 2023-05-18 15:26:19PROCEDURE: BONE SCAN, WHOLE BODY CPT CODE: 23368 INDICATION: Hepatocellular carcinoma TECHNIQUE: 22mCi of Tc-99m MDP was injected intravenously. Whole bodyand selected spot images were obtained approximately 3 hours later. Comparison: Chest CT on May 17, 2023 FINDINGS:Mildly increased uptake within the shoulders, cervical and lower lumbarspine, knees, and feet.Focus of increased activity at thethird right costochondral junction.No radiologic correlate on recent chest imaging. There is irregular mildincrease in activity in the calvarium.[facility] BONE SCAN WHOLE BODY 2023-05-18 15:26:19 [facility] : 1960 Sex: FPROCEDURE: BONE SCAN, WHOLE BODYCPT CODE: [id number]: Hepatocellular carcinomaTECHNIQUE: 22 mCi of Tc-99m MDP was injected intravenously. Whole bodyand selected [...] Signed By: Edin Quiroga05/18/2023 15:28 CDTWorkstation Name: [id number] chest with [id number] 22:48:10EXAM: CT Chest WITH intravenous contrast INDICATION: Gastrointestinal cancer, staging COMPARISON: MRI abdomen 03/14/2023 TECHNIQUE:The thorax was scanned utilizing a multidetector helical scanner fromthe lung apex through the level of the adrenal glands afteradministration of IV contrast. Coronal and sagittal reformations wereobtained. Routine protocol was performed. Dose modulation, iterative reconstruction, and/or weight basedadjustment of the mA/kV was utilized to reduce the radiation dose toaslow as reasonably achievable. FINDINGS: LINES/ TUBES: None. LUNGS AND AIRWAYS: No focal airspace c onsolidation. No suspiciouspulmonary nodules. PLEURA: No pleural effusion or pneumothorax. HEART AND MEDIASTINUM: Normal thyroid. No thoracic lymphadenopathy.Nonspecific calcified lymph node in the right axillary region. Normalheart size. No pericardial effusion. No significant aortic or coronaryar guillermina atherosclerosis. UPPER ABDOMEN: Cirrhotic liver morphology with a 4.1 cm mass in segmentVII, unchanged from prior exams. The spleen is enlarged. There areesophageal and perigastric varices. BONES: No acute osseous injury. No suspicious lytic or blastic lesions. SOFT TISSUES: Unremarkable.[facility] Cancer HospitalCT CHEST WITH IV [id number] 22:48:10 [facility] : 1960 Sex: FEXAM: CT Chest WITH intravenous contrastINDICATION: Gastrointestinal cancer, stagingCOMPARISON: MRI abdomen 03/14/2023TECHNIQUE:The thorax was scanned utilizing a multidetector helical scanner fromthelung apex through the level of the adrenal glands afteradministration of IV contrast. Coronal and sagittal reformations wereobtained. Routine protocol was performed. Dose modulation, iterative reconst ruction, and/or weight basedadjustment of the mA/kV was utilized to reduce the radiation dose to aslow as reasonably achievable. FINDINGS:LINES/ TUBES: None.LUNGS AND AIRWAYS: No focal airspace consolidation. No suspiciouspulmonary nodules. PLEURA: No pleural effusion or pneumothorax.HEART AND MEDIASTINUM: Normal thyroid. No thoracic lymphadenopathy.Nonspecific calcified lymph node in the right axillary region. Normalheart size. No pericardial effusion. No significant aortic or coronaryartery atherosclerosis.UPPER ABDOMEN: Cirrhotic liver morphology with a 4.1 cm mass in segmentVII, unchangedfrom prior exams. The spleen is enlarged. There areesophageal and perigastric varices.BONES: No acute osseous injury. No suspicious lytic or blastic lesions.SOFT TISSUES: Unremarkable.IMPRESSION:1. No evidence of metastatic disease within the chest.2. Grossly stable segment VII 4.1 cm mass, previously characterized asa LI-RADS 5 observation.3. Hepatic cirrhosis with sequela of portal hypertension. Electronically Signed By: Osmin Tucker05/17/2023 22:50 CDTWorkstation Name: [id number] FETOPROTEIN (AFP), TUMOR [id number] 12:52:38* Test Item Value Reference Range Interpretation Comme nts ALPHA-FETOPROTEIN (BEAKER) ( test code = 1094) 64.2 ng/mL <10.0 H Counseling Services Manager ID - ADMINCOMPREHENSIVE METABOLIC [id number] 11:02:22* Test Item Value Reference Range Interpretation Comme nts TOTAL PROTEIN (BEAKER) (test code = 770) 8.8 gm/dL 6.0-8.3 H Specimen slightl y hemolyzed ALBUMIN (BEAKER) (test code = 1145) 4.1 g/dL 3.5-5.0 Specimen slig htly hemolyzed ALKALINE PHOSPHATASE (BEAKER) (test code = 346) 185 U/L 40-150 H BILIRUBIN TOTAL (BEAKER) (test code = 377) 2.2 mg/dL 0.2-1.2 H Specimen slightl y hemolyzed SODIUM (BEAKER) (test code = 381) 138 meq/L 136-145 POTASSIUM (BEAKER) (test code = 379) 4.8 meq/L 3.5-5.1 Specimen sligh tly hemolyzed CHLORIDE (BEAKER) (test code = 382) 107 meq/L 98-107 CO2 (BEAKER) (test code = 355) 26 meq/L 22-29 BLOOD UREA NITROGEN (BEAKER) (test code = 354) 15 mg/dL 7-21 CREATININE (BEAKER) (test code = 358) 0.93 mg/dL 0.57-1.25 Specimen slightl y hemolyzed GLUCOSE RANDOM (BEAKER) (test code = 652) 87 mg/dL 70-105 CALCIUM (BEAKER) (test code = 697) 9.6 mg/dL 8.4-10.2 AST (SGOT) (BEAKER) (test code = 353) 105 U/L 5-34 H Specimen slightl y hemolyzed ALT (SGPT) (BEAKER) (test code = 347) 69 U/L 6-55 H Specimen slightl y hemolyzed EGFR (BEAKER) (test code = 1092) 70 mL/min/1.73 sq m Interpretation of eG FR values Stage Description Result G1 Normal or high >=90 G2 Mildly decreased 60-89 G3a Mildly to moderately 45-59 G3b Moderately to severely 30-44 G4 Severly decreased 15-29 G5 Kidney failure <15Reported eGFR is based on the CKD-EPI 2020 equation that does not use a race coefficientEstimated GFR is not as accurate as Creatinine Clearance in predicting glomerular filtration rate. Estimated GFR is not applicable for dialysis patients Specimen slightly ictericCBC W/PLT COUNT & AUTO [id number] 10:48:10 * Test Item Value Reference Range Interpretation Comme nts WHITE BLOOD CELL COUNT (BEAK ER) (test code = 775) 9.4 K/ L 3.5-10.5 RED BLOOD CELL COUNT (BEAKER ) (test code = 761) 4.06 M/ L 3.93-5.22 HEMOGLOBIN (BEAKER) (test co de = 410) 12.4 GM/DL 11.2-15.7 HEMATOCRIT (BEAKER) (test co de = 411) 39.3 % 34.1-44.9 MEAN CORPUSCULAR VOLUME (APRIL KER) (test code = 753) 97 fL 79-95 H MEAN CORPUSCULAR HEMOGLOBIN (BEAKER) (test code = 751) 30.5 pg 25.6-32.2 MEAN CORPUSCULAR HEMOGLOBIN CONC (BEAKER) (test code = 752) 31.6 GM/DL 32.2-35.5 L RED CELL DISTRIBUTION WIDTH (BEAKER) (test code = 412) 15.9 % 11.7-14.4 H PLATELET COUNT (BEAKER) (darlin t code = 756) 146 K/CU MM 150-450 L MEAN PLATELET VOLUME (BEAKER ) (test code = 754) 11.8 fL 9.4-12.3 NEUTROPHILS RELATIVE PERCENT (BEAKER) (test code = 429) 52 % LYMPHOCYTES RELATIVE PERCENT (BEAKER) (test code = 430) 33 % MONOCYTES RELATIVE PERCENT (BEAKER) (test code = 431) 14 % EOSINOPHILS RELATIVE PERCENT (BEAKER) (test code = 432) 0 % BASOPHILS RELATIVE PERCENT (BEAKER) (test code = 437) 1 % NEUTROPHILS ABSOLUTE COUNT (BEAKER) (test code = 670) 4.90 K/ L 1.56-6.13 LYMPHOCYTES ABSOLUTE COUNT (BEAKER) (test code = 414) 3.06 K/ L 1.18-3.74 MONOCYTES ABSOLUTE COUNT (BE JAZLYN) (test code = 415) 1.34 K/ L 0.24-0.36 H EOSINOPHILS ABSOLUTE COUNT (BEAKER) (test code = 416) 0.01 K/ L 0.04-0.36 L BASOPHILS ABSOLUTE COUNT (BE JAZLYN) (test code = 417) 0.05 K/ L 0.01-0.08 IMMATURE GRANULOCYTES-RELATI VE PERCENT (BEAKER) (test code = 2801) 0.30 % 0.00-1.00 ALPHA FETOPROTEIN (AFP), TUMOR [id number] 14:41:58* Test Item Value Reference Range Interpretation Comme nts ALPHA-FETOPROTEIN (BEAKER) ( test code = 1094) 45.1 ng/mL <10.0 H Counseling Services Manager ID - FSEBASIC METABOLIC [id number] 14:30:01* Test Item Value Reference Range Interpretation Comme nts SODIUM (BEAKER) (test code = 381) 141 meq/L 136-145 POTASSIUM (BEAKER) (test code = 379) 4.2 meq/L 3.5-5.1 CHLORIDE (BEAKER) (test code = 382) 106 meq/L 98-107 CO2 (BEAKER) (test code = 355) 26 meq/L 22-29 BLOOD UREA NITROGEN (BEAKER) (test code = 354) 13 mg/dL 7-21 CREATININE (BEAKER) (test code = 358) 0.81 mg/dL 0.57-1.25 GLUCOSE RANDOM (BEAKER) (test code = 652) 93 mg/dL 70-105 CALCIUM (BEAKER) (test code = 697) 9.3 mg/dL 8.4-10.2 EGFR (BEAKER) (test code = 1092) 83 mL/min/1.73 sq m Interpretation of eG FR values Stage Description Result G1 Normal or high >=90 G2 Mildly decreased 60-89 G3a Mildly to moderately 45-59 G3b Moderately to severely 30-44 G4 Severly decreased 15-29 G5 Kidney failure <15Reported eGFR is based on the CKD-EPI 2020 equation that does not use a race coefficientEstimated GFR is not as accurate as Creatinine Clearance in predicting glomerular filtration rate. Estimated GFR is not applicable for dialysis patients Counseling Services Manager ID - ABELARDO WSpecimen slightly ictericHEPATIC FUNCTION [id number] 14:30:01* Test Item Value Reference Range Interpretation Comme nts TOTAL PROTEIN (BEAKER) (test code = 770) 7.9 gm/dL 6.0-8.3 ALBUMIN (BEAKER) (test code = 1145) 3.5 g/dL 3.5-5.0 BILIRUBIN TOTAL (BEAKER) (te st code = 377) 2.2 mg/dL 0.2-1.2 H BILIRUBIN DIRECT (BEAKER) (t est code = 706) 1.2 mg/dL 0.1-0.5 H ALKALINE PHOSPHATASE (BEAKER ) (test code = 346) 246 U/L 40-150 H AST (SGOT) (BEAKER) (test co de = 353) 121 U/L 5-34 H ALT (SGPT) (BEAKER) (test co de = 347) 79 U/L 6-55 H Counseling Services Manager ID Julianna Stone slightly ictericPROTHROMBIN TIME/[id number] 14:01:11* Test Item Value Reference Range Interpretation Comme nts PROTIME (BEAKER) (test code = 759) 16.0 seconds 11.9-14.2 H INR (BEAKER) (test code = 370) 1.36 <=5.90 RECOMMENDED COUMADIN/WARFARIN INR THERAPY RANGESSTANDARD DOSE: 2.0 - 3.0 Includes: PROPHYLAXIS for venous thrombosis, systemic embolization; TREATMENT for venous thrombosis and/or pulmonary embolus.HIGH RISK: Target INR is 2.5-3.5 for patients with mechanical heart valves.CBC W/PLT COUNT & AUTO DIFFERENTIAL 2023-04-04 13:59:27* Test Item Value Reference Range Interpretation Comme nts WHITE BLOOD CELL COUNT (BEAK ER) (test code = 775) 6.9 K/ L 3.5-10.5 RED BLOOD CELL COUNT (BEAKER ) (test code = 761) 3.76 M/ L 3.93-5.22 L HEMOGLOBIN (BEAKER) (test co de = 410) 11.7 GM/DL 11.2-15.7 HEMATOCRIT (BEAKER) (test co de = 411) 36.4 % 34.1-44.9 MEAN CORPUSCULAR VOLUME (APRIL KER) (test code = 753) 97 fL 79-95 H MEAN CORPUSCULAR HEMOGLOBIN (BEAKER) (test code = 751) 31.1 pg 25.6-32.2 MEAN CORPUSCULAR HEMOGLOBIN CONC (BEAKER) (test code = 752) 32.1 GM/DL 32.2-35.5 L RED CELL DISTRIBUTION WIDTH (BEAKER) (test code = 412) 17.5 % 11.7-14.4 H PLATELET COUNT (BEAKER) (darlin t code = 756) 91 K/CU MM 150-450 L MEAN PLATELET VOLUME (BEAKER ) (test code = 754) 12.5 fL 9.4-12.3 H NUCLEATED RED BLOOD CELLS (B EAKER) (test code = 413) 0 /100 WBC 0-0 NEUTROPHILS RELATIVE PERCENT (BEAKER) (test code = 429) 48 % LYMPHOCYTES RELATIVE PERCENT (BEAKER) (test code = 430) 33 % MONOCYTES RELATIVE PERCENT (BEAKER) (test code = 431) 15 % EOSINOPHILS RELATIVE PERCENT (BEAKER) (test code = 432) 3 % BASOPHILS RELATIVE PERCENT (BEAKER) (test code = 437) 1 % NEUTROPHILS ABSOLUTE COUNT (BEAKER) (test code = 670) 3.30 K/ L 1.56-6.13 LYMPHOCYTES ABSOLUTE COUNT (BEAKER) (test code = 414) 2.31 K/ L 1.18-3.74 MONOCYTES ABSOLUTE COUNT (BE JAZLYN) (test code = 415) 1.06 K/ L 0.24-0.36 H EOSINOPHILS ABSOLUTE COUNT (BEAKER) (test code = 416) 0.17 K/ L 0.04-0.36 BASOPHILS ABSOLUTE COUNT (BE JAZLYN) (test code = 417) 0.06 K/ L 0.01-0.08 IMMATURE GRANULOCYTES-RELATI VE PERCENT (BEAKER) (test code = 2801) 0.10 % 0.00-1.00 MR, ABDOMEN, [id number] 07:23:00Referring: RAZ MANCUSODCirrhosis, liver mass- assess for HCCCirrhosis, liver mass- assess for HCCUnlisted Reason for Exam - Click Yes and Enter Reason Below->No [facility]RAION STERLING : 1960 Sex: FFINAL REPORT MRI of the abdomen with and without contrast Clinical History: Liver lesion, > 1cm, US nondiagnostic Technique: Multiplanar and multisequence MR images of the abdomen are obtained before and after intravenous contrast administration. Contrast is administered to evaluate neoplasm and vasculature. Comparison: MRI dated April 02, 2021, performed at an outside [facility] Discussion: Liver is cirrhotic. At the right hepatic dome in segment 7, there is a 3.9 x 3.3 x 2.6 cm lesion that is new, demonstrating heterogeneous enhancement in [...] not demonstrate complex features, no routine imaging f ollow-up is needed. There is a small amount of ascites. Varices are present. Visualized bowel is unremarkable. No adenopathy. No suspicious bony lesion is identified. Impression: Cirrhosis and mild splenomegaly. Small amount of ascites. There is a 3.9 x 3.3 x 2.6 cm LI-RADS 5 observation in segment7. Nonspecific gallbladder wall edema, probably related to portal hypertension. Signed: Kiki Morocho Verified Date/Time: 03/19/2023 07:23:13 ALPHA FETOPROTEIN (AFP), TUMOR [id number] 15:45:15* Test Item Value Reference Range Interpretation Comme nts ALPHA-FETOPROTEIN (BEAKER) ( test code = 1094) 33.9 ng/mL <10.0 H Counseling Services Manager ID - DBBASIC METABOLIC [id number] 15:24:28* Test Item Value Reference Range Interpretation Comme nts SODIUM (BEAKER) (test code = 381) 140 meq/L 136-145 POTASSIUM (BEAKER) (test code = 379) 3.8 meq/L 3.5-5.1 CHLORIDE (BEAKER) (test code = 382) 107 meq/L 98-107 CO2 (BEAKER) (test code = 355) 23 meq/L 22-29 BLOOD UREA NITROGEN (BEAKER) (test code = 354) 9 mg/dL 7-21 CREATININE (BEAKER) (test code = 358) 0.79 mg/dL 0.57-1.25 GLUCOSE RANDOM (BEAKER) (test code = 652) 82 mg/dL 70-105 CALCIUM (BEAKER) (test code = 697) 9.5 mg/dL 8.4-10.2 EGFR (BEAKER) (test code = 1092) 86 mL/min/1.73 sq m Interpretation of eG FR values Stage Description Result G1 Normal or high >=90 G2 Mildly decreased 60-89 G3a Mildly to moderately 45-59 G3b Moderately to severely 30-44 G4 Severly decreased 15-29 G5 Kidney failure <15Reported eGFR is based on the CKD-EPI 2020 equation that does not use a race coefficientEstimated GFR is not as accurate as Creatinine Clearance in predicting glomerular filtration rate. Estimated GFR is not applicable for dialysis patients Counseling Services Manager ID - BSHEPATIC FUNCTION [id number] 15:24:28* Test Item Value Reference Range Interpretation Comme nts TOTAL PROTEIN (BEAKER) (test code = 770) 8.6 gm/dL 6.0-8.3 H ALBUMIN (BEAKER) (test code = 1145) 3.9 g/dL 3.5-5.0 BILIRUBIN TOTAL (BEAKER) (te st code = 377) 2.0 mg/dL 0.2-1.2 H BILIRUBIN DIRECT (BEAKER) (t est code = 706) 1.0 mg/dL 0.1-0.5 H ALKALINE PHOSPHATASE (BEAKER ) (test code = 346) 171 U/L 40-150 H AST (SGOT) (BEAKER) (test co de = 353) 100 U/L 5-34 H ALT (SGPT) (BEAKER) (test co de = 347) 67 U/L 6-55 H Counseling Services Manager ID - BSCBC W/PLT COUNT & AUTO [id number] 15:14:05* Test Item Value Reference Range Interpretation Comme nts WHITE BLOOD CELL COUNT (BEAK ER) (test code = 775) 8.9 K/ L 3.5-10.5 RED BLOOD CELL COUNT (BEAKER ) (test code = 761) 3.98 M/ L 3.93-5.22 HEMOGLOBIN (BEAKER) (test co de = 410) 12.7 GM/DL 11.2-15.7 HEMATOCRIT (BEAKER) (test co de = 411) 40.0 % 34.1-44.9 MEAN CORPUSCULAR VOLUME (APRIL KER) (test code = 753) 101 fL 79-95 H MEAN CORPUSCULAR HEMOGLOBIN (BEAKER) (test code = 751) 31.9 pg 25.6-32.2 MEAN CORPUSCULAR HEMOGLOBIN CONC (BEAKER) (test code = 752) 31.8 GM/DL 32.2-35.5 L RED CELL DISTRIBUTION WIDTH (BEAKER) (test code = 412) 13.5 % 11.7-14.4 PLATELET COUNT (BEAKER) (darlin t code = 756) 115 K/CU MM 150-450 L MEAN PLATELET VOLUME (BEAKER ) (test code = 754) 11.6 fL 9.4-12.3 NUCLEATED RED BLOOD CELLS (BEAKER) (test code = 413) 0 /100 WBC 0-0 NEUTROPHILS RELATIVE PERCENT (BEAKER) (test code = 429) 46 % LYMPHOCYTES RELATIVE PERCENT (BEAKER) (test code = 430) 40 % MONOCYTES RELATIVE PERCENT (BEAKER) (test code = 431) 11 % EOSINOPHILS RELATIVE PERCENT (BEAKER) (test code = 432) 3 % BASOPHILS RELATIVE PERCENT (BEAKER) (test code = 437) 1 % NEUTROPHILS ABSOLUTE COUNT (BEAKER) (test code = 670) 4.09 K/ L 1.56-6.13 LYMPHOCYTES ABSOLUTE COUNT (BEAKER) (test code = 414) 3.58 K/ L 1.18-3.74 MONOCYTES ABSOLUTE COUNT (BE JAZLYN) (test code = 415) 0.93 K/ L 0.24-0.36 H EOSINOPHILS ABSOLUTE COUNT (BEAKER) (test code = 416) 0.22 K/ L 0.04-0.36 BASOPHILS ABSOLUTE COUNT (BE JAZLYN) (test code = 417) 0.05 K/ L 0.01-0.08 IMMATURE GRANULOCYTES-RELATI VE PERCENT (BEAKER) (test code = 2801) 0.20 % 0.00-1.00 PROTHROMBIN [id number] 15:13:04* Test Item Value Reference Range Interpretation Comme nts PROTIME (BEAKER) (test code = 759) 16.0 seconds 11.9-14.2 H INR (BEAKER) (test code = 370) 1.37 <=5.90 RECOMMENDED COUMADIN/WARFARIN INR THERAPY RANGESSTANDARD DOSE: 2.0 - 3.0 Includes: PROPHYLAXIS for venous thrombosis, systemic embolization; TREATMENT for venous thrombosis and/or pulmonary embolus.HIGH RISK: Target INR is 2.5-3.5 for patients with mechanical heart valves.COMPREHENSIVE METABOLIC PANEL 2022-07-30 08:43:11* Test Item Value Reference Range Interpretation Comme nts GLUCOSE (test code = 2217) 102 MG/DL 70-99 H BUN (test code = 8) 9 MG/DL 8-23 CREATININE (test code = 2214) 0.76 MG/DL 0.60-1.30 eGFR (2020 CKD-EPI) (test code = 28179) 90 ML/MIN/1.73 >60 CALC BUN/CREAT (test code = 2235) 12 RATIO 6-28 SODIUM (test code = 2231) 142 MEQ/L 133-146 POTASSIUM (test code = 2228) 4.3 MEQ/L 3.5-5.4 CHLORIDE (test code = 2215) 105 MEQ/L 95-107 CARBON DIOXIDE (test code = 2206) 24 MEQ/L 19-31 CALCIUM (test code = 2209) 10.1 MG/DL 8.5-10.5 PROTEIN, TOTAL (test code = 222) 8.0 G/DL 6.1-8.3 ALBUMIN (test code = 220) 4.1 G/DL 3.5-5.2 CALC GLOBULIN (test code = 2240) 3.9 G/DL 1.9-3.7 H CALC A/G RATIO (test code = 2234) 1.1 RATIO 1.0-2.6 BILIRUBIN, TOTAL (test code = 2207) 2.5 MG/DL See_Comment H [Automated me ssage] The system which generated this result transmitted reference range: <=1.2. The reference range was not used to interpret this result as normal/abnormal. ALKALINE PHOSPHATASE (test code = 2204) 163 U/L 40-136 H AST (test code = 2218) 125 U/L 9-40 H ALT (test code = 2219) 94 U/L 5-40 H LIPID [id number] 08:43:11* Test Item Value Reference Range Interpretation Comme nts CHOLESTEROL (test code = 2210) 137 MG/DL <200 TRIGLYCERIDES (test code = 2232) 98 MG/DL <150 HDL CHOLESTEROL (test code = 2220) 48 MG/DL >39 CALC LDL CHOL (test code = 2237) 71 MG/DL <100 NOTE: CALCULATED LDL IS BASED ON VIOLET-CHAMORRO METHOD WHICHINCLUDES ADJUSTABLE TRIGLYCERIDE:VLDL CHOLESTEROL RATIO.THIS FACTOR VARIES BY MEASURED TRIGLYCERIDE AND NON-HDLCHOLESTEROL CONCENTRATIONS WITH INCREASED CALCULATED LDL SEENIN HIGHER TRIGLYCERIDE OR LOWER NON-HDL SPECIMENS. FOR MOREINFORMATION, SEE CLIENT ANNOUNCEMENT AT [email or web address] [email or web address] RATIO LDL/HDL (test code = 2238) 1.48 RATIO <3.22 UNLESS OTHERW ISE INDICATED, ALL TESTING PERFORMED ATCL[facility], [facility] [address] [place] [address] UPHOLSTERY AUTO TRIMMER: MARLENE BARBOSA M.D. CLIA NUMBER [id number] [facility] [place]. [id number] CBC W/AUTO DIFF WITH [id number] 08:17:54* Test Item Value Reference Range Interpretation Comme nts WBC (test code = 1001) 7.1 K/UL 3.5-11.0 RBC (test code = 1002) 3.72 M/UL 3.80-5.40 L HEMOGLOBIN (test code = 1003) 12.9 G/DL 11.5-15.5 HEMATOCRIT (test code = 1004) 37.1 % 34.0-45.0 MCV (test code = 1005) 99.7 fL 80.0-99.0 H MCH (test code = 1006) 34.7 PG 25.0-33.0 H MCHC (test code = 1007) 34.8 G/DL 31.0-36.0 RDW (test code = 1038) 12.1 % 11.5-15.0 NEUTROPHILS (test code = 1008) 60.4 % LYMPHOCYTES (test code = 1010) 25.1 % MONOCYTES (test code = 1011) 11.1 % EOSINOPHILS (test code = 1012) 2.7 % BASOPHILS (test code = 1013) 0.6 % IMMATURE GRANULOCYTES (test code = 1036) 0.1 % NUCLEATED RBCS (test code = 1065) 0.0 /100 WBC'S See_Comment [Automated messa ge] The system which generated this result transmitted reference range: 0.0. The reference range was not used to interpret this result as normal/abnormal. PLATELET COUNT (test code = 1015) 81 K/UL 130-400 L ABSOLUTE NEUTROPHILS (test code = 1066) 4.30 K/UL 1.50-7.50 ABSOLUTE LYMPHOCYTES (test code = 1067) 1.79 K/UL 1.00-4.00 ABSOLUTE MONOCYTES (test code = 1068) 0.79 K/UL 0.20-1.00 ABSOLUTE EOSINOPHILS (test code = 1040) 0.19 K/UL 0.00-0.50 ABSOLUTE BASOPHILS (test code = 1069) 0.04 K/UL 0.00-0.20 ABS IMMATURE GRANULOCYTES (test code = 1020) 0.01 K/UL 0.00-0.10 ABS NUCLEATED RBCS (test code = 06439) 0.00 K/UL 0.00-0.11 HEMOGLOBIN [id number] 08:16:27* Test Item Value Reference Range Interpretation Comme nts HEMOGLOBIN A1c (test code = 52824) 4.4 % 4.2-5.6 HEMOGLOBIN [id number] 00:00:00* Test Item Value Reference Range Interpretation Comme nts HEMOGLOBIN A1c (test code = 67947) 4.4 % CBC W/AUTO [id number] 00:00:00* Test Item Value Reference Range Interpretation Comme nts WBC (test code = 1001) 7.1 K/UL [...] = 1013) 0.6 % IMMATURE GRANULOCYTES (test code = 1036) 0.1 % NUCLEATED RBCS (test code = 1065) 0.0 /100WBC'S PLATELET COUNT (test code = 1015) 81 K/UL ABSOLUTE NEUTROPHILS (test c ode = 1066) 4.30 K/UL ABSOLUTE LYMPHOCYTES (test c ode = 1067) 1.79 K/UL ABSOLUTE MONOCYTES (test cod e = 1068) 0.79 K/UL ABSOLUTE EOSINOPHILS (test c ode = 1040) 0.19 K/UL ABSOLUTE BASOPHILS (test cod e = 1069) 0.04 K/UL ABS IMMATURE GRANULOCYTES (t est code = 1020) 0.01 K/UL ABS NUCLEATED RBCS (test cod e = 71685) 0.00 K/UL COMPREHENSIVE METABOLIC [id number] 00:00:00* Test Item Value Reference Range Interpretation Comme nts GLUCOSE (test code = 2217) 102 MG/DL BUN (test code = 2208) 9 MG/DL CREATININE (test code = 2214) 0.76 MG/DL eGFR (2020 CKD-EPI) (test co de = 27843) 90 ML/MIN/1.73 CALC BUN/CREAT (test code = 2235) 12 RATIO SODIUM (test code = 2231) 142 MEQ/L POTASSIUM (test code = 2228) 4.3 MEQ/L CHLORIDE (test code = 2215) 105 MEQ/L CARBON DIOXIDE (test code = 2206) 24 MEQ/L CALCIUM (test code = 2209) 10.1 MG/DL PROTEIN, TOTAL (test code = 2229) 8.0 G/DL ALBUMIN (test code = 2201) 4.1 G/DL CALC GLOBULIN (test code = 2240) 3.9 G/DL CALC A/G RATIO (test code = 2234) 1.1 RATIO BILIRUBIN, TOTAL (test code = 2207) 2.5 MG/DL ALKALINE PHOSPHATASE (test code = 2204) 163 U/L AST (test code = 2218) 125 U/L ALT (test code = 2219) 94 U/L LIPID [id number] 00:00:00* Test Item Value Reference Range Interpretation Comme nts CHOLESTEROL (test code = 2210) 137 MG/DL TRIGLYCERIDES (test code = 2232) 98 MG/DL HDL CHOLESTEROL (test code = 2220) 48 MG/DL CALC LDL CHOL (test code = 2237) 71 MG/DL RISK RATIO LDL/HDL (test cod e = 2238) 1.48 RATIO CBC W/AUTO [id number] 00:00:00* Test Item Value Reference Range Interpretation Comme nts WBC (test code = 1001) 7.1 K/UL [...] = 1013) 0.6 % IMMATURE GRANULOCYTES (test code = 1036) 0.1 % NUCLEATED RBCS (test code = 1065) 0.0 /100WBC'S PLATELET COUNT (test code = 1015) 81 K/UL ABSOLUTE NEUTROPHILS (test c ode = 1066) 4.30 K/UL ABSOLUTE LYMPHOCYTES (test c ode = 1067) 1.79 K/UL ABSOLUTE MONOCYTES (test cod e = 1068) 0.79 K/UL ABSOLUTE EOSINOPHILS (test c ode = 1040) 0.19 K/UL ABSOLUTE BASOPHILS (test cod e = 1069) 0.04 K/UL ABS IMMATURE GRANULOCYTES (t est code = 1020) 0.01 K/UL ABS NUCLEATED RBCS (test cod e = 48957) 0.00 K/UL Kamar McmahanCOMPREHENSIVE METABOLIC [id number] 00:00:00* Test Item Value Reference Range Interpretation Comme nts GLUCOSE (test code = 2217) 102 MG/DL BUN (test code = 2208) 9 MG/DL CREATININE (test code = 2214) 0.76 MG/DL eGFR (2020 CKD-EPI) (test co de = 68135) 90 ML/MIN/1.73 CALC BUN/CREAT (test code = 2235) 12 RATIO SODIUM (test code = 2231) 142 MEQ/L POTASSIUM (test code = 2228) 4.3 MEQ/L CHLORIDE (test code = 2215) 105 MEQ/L CARBON DIOXIDE (test code = 2206) 24 MEQ/L CALCIUM (test code = 2209) 10.1 MG/DL PROTEIN, TOTAL (test code = 2229) 8.0 G/DL ALBUMIN (test code = 2201) 4.1 G/DL CALC GLOBULIN (test code = 2240) 3.9 G/DL CALC A/G RATIO (test code = 2234) 1.1 RATIO BILIRUBIN, TOTAL (test code = 2207) 2.5 MG/DL ALKALINE PHOSPHATASE (test code = 2204) 163 U/L AST (test code = 2218) 125 U/L ALT (test code = 2219) 94 U/L Kamar McmahanLIPID [id number] 00:00:00* Test Item Value Reference Range Interpretation Comme nts CHOLESTEROL (test code = 2210) 137 MG/DL TRIGLYCERIDES (test code = 2232) 98 MG/DL HDL CHOLESTEROL (test code = 2220) 48 MG/DL CALC LDL CHOL (test code = 2237) 71 MG/DL RISK RATIO LDL/HDL (test cod e = 2238) 1.48 RATIO Kamar McmahanHEMOGLOBIN [id number] 00:00:00* Test Item Value Reference Range Interpretation Comme nts HEMOGLOBIN A1c (test code = 18468) 4.4 % Kamar McmahanREGINAH, THIRD [id number] 03:55:19* Test Item Value Reference Range Interpretation Comme nts TSH, THIRD GENERATION (test code = 2821) 2.080 UIU/ML 0.400-4.100 FREE [id number] 03:55:19* Test Item Value Reference Range Interpretation Comme nts FREE T3 (test code = 4273) 2.5 PG/ML 2.2-4.2 FREE T4 (THYROXINE)2022-04-23 03:55:19* Test Item Value Reference Range Interpretation Comme nts FREE T4 (THYROXINE) (test code = 2823) 1.43 NG/DL 0.80-1.90 UNLESS OTHERWISE INDICATED, ALL TESTING PERFORMED ATCLINICAL PATHOLOGY [employer] [address] [place] [id number] [employer]PH[employer] TRIMMER: MARLENE BARBOSA M.D. CLIA NUMBER [id number] [facility] [place]. [id number] 00:00:00* Test Item Value Reference Range Interpretation Comme nts TSH, THIRD GENERATION (test code = 2821) 2.080 UIU/ML FREE 00:00:00* Test Item Value Reference Range Interpretation Comme nts FREE T3 (test code = 4273) 2.5 PG/ML FREE T4 (THYROXINE)2022-04-23 00:00:00* Test Item Value Reference Range Interpretation Comme nts FREE T4 (THYROXINE) (test co de = 2823) 1.43 NG/DL FREE 00:00:00* Test Item Value Reference Range Interpretation Comme nts FREE T3 (test code = 4273) 2.5 PG/ML Kamar McmahanFREE T4 (THYROXINE)2022-04-23 00:00:00* Test Item Value Reference Range Interpretation Comme nts FREE T4 (THYROXINE) (test co de = 2823) 1.43 NG/DL Kamar Ramos [id number] 00:00:00* Test Item Value Reference Range Interpretation Comme nts TSH, THIRD GENERATION (test code = 2821) 2.080 UIU/ML Kamar Ramos [employer]BASIC METABOLIC [id number] 04:23:34* Test Item Value Reference Range Interpretation Comme nts GLUCOSE (test code = 2217) 86 MG/DL 70-99 BUN (test code = 2208) 8 MG/DL 6-20 CREATININE (test code = 2214) 0.75 MG/DL 0.60-1.30 eGFR (2020 CKD-EPI) (test code = 82837) 92 ML/MIN/1.73 >60 SODIUM (test code = 2231) 139 MEQ/L 133-146 POTASSIUM (test code = 2228) 3.8 MEQ/L 3.5-5.4 CHLORIDE (test code = 2215) 103 MEQ/L 95-107 CARBON DIOXIDE (test code = 2206) 22 MEQ/L 19-31 CALCIUM (test code = 2209) 9.9 MG/DL 8.5-10.5 UNLESS OTHERWISE INDICATED, ALL TESTING PERFORMED ATCLINICAL PATHOLOGY [employer] [address] [place] [address] UPHOL[employer]ERY [employer] TRIMMER: MARLENE BARBOSA M.D. CLIA NUMBER [id number] [facility] [place]. [id number] BASIC METABOLIC [id number] 00:00:00* Test Item Value Reference Range Interpretation Comme nts GLUCOSE (test code = 2217) 86 MG/DL BUN (test code = 2208) 8 MG/DL CREATININE (test code = 2214) 0.75 MG/DL eGFR (2020 CKD-EPI) (test co de = 91633) 92 ML/MIN/1.73 SODIUM (test code = 2231) 139 MEQ/L POTASSIUM (test code = 2228) 3.8 MEQ/L CHLORIDE (test code = 2215) 103 MEQ/L CARBON DIOXIDE (test code = 2206) 22 MEQ/L CALCIUM (test code = 2209) 9.9 MG/DL BASIC METABOLIC [id number] 00:00:00* Test Item Value Reference Range Interpretation Comme nts GLUCOSE (test code = 2217) 86 MG/DL BUN (test code = 2208) 8 MG/DL CREATININE (test code = 2214) 0.75 MG/DL eGFR (2020 CKD-EPI) (test co de = 81509) 92 ML/MIN/1.73 SODIUM (test code = 2231) 139 MEQ/L POTASSIUM (test code = 2228) 3.8 MEQ/L CHLORIDE (test code = 2215) 103 MEQ/L CARBON DIOXIDE (test code = 2206) 22 MEQ/L CALCIUM (test code = 2209) 9.9 MG/DL Kamar F MarjCOMPREHENSIVE METABOLIC [id number] 00:00:00* Test Item Value Reference Range Interpretation Comme nts GLUCOSE (test code = 2217) 90 MG/DL BUN (test code = 2208) 18 MG/DL CREATININE (test code = 2214) 1.15 MG/DL eGFR AMER. (test cod e = 44623) 60 ML/MIN/1.73 eGFR NON- AMER. (test code = 50810) 52 ML/MIN/1.73 CALC BUN/CREAT (test code = 2235) 16 RATIO SODIUM (test code = 2231) 137 MEQ/L POTASSIUM (test code = 2228) 4.9 MEQ/L CHLORIDE (test code = 2215) 108 MEQ/L CARBON DIOXIDE (test code = 2206) 20 MEQ/L CALCIUM (test code = 2209) 9.7 MG/DL PROTEIN, TOTAL (test code = 2229) 7.9 G/DL ALBUMIN (test code = 2201) 3.7 G/DL CALC GLOBULIN (test code = 2240) 4.2 G/DL CALC A/G RATIO (test code = 2234) 0.9 RATIO BILIRUBIN, TOTAL (test code = 2207) 1.2 MG/DL ALKALINE PHOSPHATASE (test code = 2204) 197 U/L AST (test code = 2218) 74 U/L ALT (test code = 2219) 64 U/L COMPREHENSIVE METABOLIC [id number] 00:00:00* Test Item Value Reference Range Interpretation Comme nts GLUCOSE (test code = 2217) 90 MG/DL BUN (test code = 2208) 18 MG/DL CREATININE (test code = 2214) 1.15 MG/DL eGFR AMER. (test cod e = 56642) 60 ML/MIN/1.73 eGFR NON- AMER. (test code = 40064) 52 ML/MIN/1.73 CALC BUN/CREAT (test code = 2235) 16 RATIO SODIUM (test code = 2231) 137 MEQ/L POTASSIUM (test code = 2228) 4.9 MEQ/L CHLORIDE (test code = 2215) 108 MEQ/L CARBON DIOXIDE (test code = 2206) 20 MEQ/L CALCIUM (test code = 2209) 9.7 MG/DL PROTEIN, TOTAL (test code = 2229) 7.9 G/DL ALBUMIN (test code = 2201) 3.7 G/DL CALC GLOBULIN (test code = 2240) 4.2 G/DL CALC A/G RATIO (test code = 2234) 0.9 RATIO BILIRUBIN, TOTAL (test code = 2207) 1.2 MG/DL ALKALINE PHOSPHATASE (test code = 2204) 197 U/L AST (test code = 2218) 74 U/L ALT (test code = 2219) 64 U/L Kamar Ramos [facility] W/AUTO [id number] 00:00:00* Test Item Value Reference Range Interpretation Comme nts WBC (test code = 1001) 6.2 K/UL [...] = 1013) 0.5 % IMMATURE GRANULOCYTES (test code = 1036) 0.5 % NUCLEATED RBCS (test code = 1065) 0.0 /100WBC'S PLATELET COUNT (test code = 1015) 98 K/UL ABSOLUTE NEUTROPHILS (test c ode = 1066) 3.52 K/UL ABSOLUTE LYMPHOCYTES (test c ode = 1067) 1.80 K/UL ABSOLUTE MONOCYTES (test cod e = 1068) 0.59 K/UL ABSOLUTE EOSINOPHILS (test c ode = 1040) 0.21 K/UL ABSOLUTE BASOPHILS (test cod e = 1069) 0.03 K/UL ABS IMMATURE GRANULOCYTES (t est code = 1020) 0.03 K/UL ABS NUCLEATED RBCS (test cod e = 14341) 0.00 K/UL COMPREHENSIVE METABOLIC [id number] 00:00:00* Test Item Value Reference Range Interpretation Comme nts GLUCOSE (test code = 2217) 89 MG/DL BUN (test code = 2208) 9 MG/DL CREATININE (test code = 2214) 0.81 MG/DL eGFR AMER. (test cod e = 48384) 92 ML/MIN/1.73 eGFR NON- AMER. (test code = 60745) 79 ML/MIN/1.73 CALC BUN/CREAT (test code = 2235) 11 RATIO SODIUM (test code = 2231) 140 MEQ/L POTASSIUM (test code = 2228) 4.3 MEQ/L CHLORIDE (test code = 2215) 106 MEQ/L CARBON DIOXIDE (test code = 2206) 24 MEQ/L CALCIUM (test code = 2209) 9.5 MG/DL PROTEIN, TOTAL (test code = 2229) 7.0 G/DL ALBUMIN (test code = 2201) 3.2 G/DL CALC GLOBULIN (test code = 2240) 3.8 G/DL CALC A/G RATIO (test code = 2234) 0.8 RATIO BILIRUBIN, TOTAL (test code = 2207) 1.8 MG/DL ALKALINE PHOSPHATASE (test code = 2204) 151 U/L AST (test code = 2218) 104 U/L ALT (test code = 2219) 73 U/L COMPREHENSIVE METABOLIC [id number] 00:00:00* Test Item Value Reference Range Interpretation Comme nts GLUCOSE (test code = 2217) 89 MG/DL BUN (test code = 2208) 9 MG/DL CREATININE (test code = 2214) 0.81 MG/DL eGFR AMER. (test cod e = 37240) 92 ML/MIN/1.73 eGFR NON- AMER. (test code = 41747) 79 ML/MIN/1.73 CALC BUN/CREAT (test code = 2235) 11 RATIO SODIUM (test code = 2231) 140 MEQ/L POTASSIUM (test code = 2228) 4.3 MEQ/L CHLORIDE (test code = 2215) 106 MEQ/L CARBON DIOXIDE (test code = 2206) 24 MEQ/L CALCIUM (test code = 2209) 9.5 MG/DL PROTEIN, TOTAL (test code = 2229) 7.0 G/DL ALBUMIN (test code = 2201) 3.2 G/DL CALC GLOBULIN (test code = 2240) 3.8 G/DL CALC A/G RATIO (test code = 2234) 0.8 RATIO BILIRUBIN, TOTAL (test code = 2207) 1.8 MG/DL ALKALINE PHOSPHATASE (test code = 2204) 151 U/L AST (test code = 2218) 104 U/L ALT (test code = 2219) 73 U/L Kamar McmahanCBC W/AUTO [id number] 00:00:00* Test Item Value Reference Range Interpretation Comme nts WBC (test code = 1001) 6.2 K/UL [...] = 1013) 0.5 % IMMATURE GRANULOCYTES (test code = 1036) 0.5 % NUCLEATED RBCS (test code = 1065) 0.0 /100WBC'S PLATELET COUNT (test code = 1015) 98 K/UL ABSOLUTE NEUTROPHILS (test c ode = 1066) 3.52 K/UL ABSOLUTE LYMPHOCYTES (test c ode = 1067) 1.80 K/UL ABSOLUTE MONOCYTES (test cod e = 1068) 0.59 K/UL ABSOLUTE EOSINOPHILS (test c ode = 1040) 0.21 K/UL ABSOLUTE BASOPHILS (test cod e = 1069) 0.03 K/UL ABS IMMATURE GRANULOCYTES (t est code = 1020) 0.03 K/UL ABS NUCLEATED RBCS (test cod e = 49247) 0.00 K/UL Kamar Ramos MarjPATHOLOGIST SMEAR [id number] 00:00:00* Test Item Value Reference Range Interpretation Comme nts DIAGNOSIS: (test code = 8200) (NOTE) MICROSCOPIC DESCRIPTION: (te st code = 8210) (NOTE) PATHOLOGIST: (test code = 8250) (NOTE) CPT: (test code = 8400) 92700 WBC (test code = 1001) 8.4 K/UL [...] 0.0 % NUCLEATED RBCS (test code = 1065) 0.0 /100WBC'S PLATELET COUNT (test code = 1015) 94 K/UL ABSOLUTE NEUTROPHILS (test c ode = 1066) 5.33 K/UL ABSOLUTE LYMPHOCYTES (test c ode = 1067) 2.49 K/UL ABSOLUTE MONOCYTES (test cod e = 1068) 0.51 K/UL ABSOLUTE EOSINOPHILS (test c ode = 1040) 0.08 K/UL ABSOLUTE BASOPHILS (test cod e = 1069) 0.00 K/UL ABS NUCLEATED RBCS (test cod e = 11992) 0.00 K/UL COMMENTS (test code = 1016) (NOTE) PATHOLOGIST SMEAR [id number] 00:00:00* Test Item Value Reference Range Interpretation Comme nts DIAGNOSIS: (test code = 8200) (NOTE) MICROSCOPIC DESCRIPTION: (te st code = 8210) (NOTE) PATHOLOGIST: (test code = 8250) (NOTE) CPT: (test code = 8400) 67142 WBC (test code = 1001) 8.4 K/UL [...] 0.0 % NUCLEATED RBCS (test code = 1065) 0.0 /100WBC'S PLATELET COUNT (test code = 1015) 94 K/UL ABSOLUTE NEUTROPHILS (test c ode = 1066) 5.33 K/UL ABSOLUTE LYMPHOCYTES (test c ode = 1067) 2.49 K/UL ABSOLUTE MONOCYTES (test cod e = 1068) 0.51 K/UL ABSOLUTE EOSINOPHILS (test c ode = 1040) 0.08 K/UL ABSOLUTE BASOPHILS (test cod e = 1069) 0.00 K/UL ABS NUCLEATED RBCS (test cod e = 01348) 0.00 K/UL COMMENTS (test code = 1016) (NOTE) [facility]AUT[facility] [id number] 00:00:00* Test Item Value Reference Range Interpretation Comme nts WBC (test code = 1001) 6.9 K/UL [...] = 1013) 0.7 % IMMATURE GRANULOCYTES (test code = 1036) 0.3 % NUCLEATED RBCS (test code = 1065) 0.0 /100WBC'S PLATELET COUNT (test code = 1015) 88 K/UL ABSOLUTE NEUTROPHILS (test c ode = 1066) 3.26 K/UL ABSOLUTE LYMPHOCYTES (test c ode = 1067) 2.80 K/UL ABSOLUTE MONOCYTES (test cod e = 1068) 0.58 K/UL ABSOLUTE EOSINOPHILS (test c ode = 1040) 0.16 K/UL ABSOLUTE BASOPHILS (test cod e = 1069) 0.05 K/UL ABS IMMATURE GRANULOCYTES (t est code = 1020) 0.02 K/UL ABS NUCLEATED RBCS (test cod e = 58500) 0.00 K/UL COMPREHENSIVE METABOLIC [id number] 00:00:00* Test Item Value Reference Range Interpretation Comme nts GLUCOSE (test code = 2217) 98 MG/DL BUN (test code = 2208) 9 MG/DL CREATININE (test code = 2214) 0.72 MG/DL eGFR AMER. (test cod e = 90082) 106 ML/MIN/1.73 eGFR NON- AMER. (test code = 22633) 92 ML/MIN/1.73 CALC BUN/CREAT (test code = 2235) 13 RATIO SODIUM (test code = 2231) 144 MEQ/L POTASSIUM (test code = 2228) 5.1 MEQ/L CHLORIDE (test code = 2215) 109 MEQ/L CARBON DIOXIDE (test code = 2206) 23 MEQ/L CALCIUM (test code = 2209) 9.5 MG/DL PROTEIN, TOTAL (test code = 2229) 7.5 G/DL ALBUMIN (test code = 2201) 3.8 G/DL CALC GLOBULIN (test code = 2240) 3.7 G/DL CALC A/G RATIO (test code = 2234) 1.0 RATIO BILIRUBIN, TOTAL (test code = 2207) 1.6 MG/DL ALKALINE PHOSPHATASE (test code = 2204) 154 U/L AST (test code = 2218) 113 U/L ALT (test code = 2219) 81 U/L LIPID [id number] 00:00:00* Test Item Value Reference Range Interpretation Comme nts CHOLESTEROL (test code = 2210) 115 MG/DL TRIGLYCERIDES (test code = 2232) 96 MG/DL HDL CHOLESTEROL (test code = 2220) 41 MG/DL CALC LDL CHOL (test code = 2237) 56 MG/DL RISK RATIO LDL/HDL (test cod e = 2238) 1.37 RATIO COMPREHENSIVE METABOLIC [id number] 00:00:00* Test Item Value Reference Range Interpretation Comme nts GLUCOSE (test code = 2217) 98 MG/DL BUN (test code = 2208) 9 MG/DL CREATININE (test code = 2214) 0.72 MG/DL eGFR AMER. (test cod e = 72242) 106 ML/MIN/1.73 eGFR NON- AMER. (test code = 05323) 92 ML/MIN/1.73 CALC BUN/CREAT (test code = 2235) 13 RATIO SODIUM (test code = 2231) 144 MEQ/L POTASSIUM (test code = 2228) 5.1 MEQ/L CHLORIDE (test code = 2215) 109 MEQ/L CARBON DIOXIDE (test code = 2206) 23 MEQ/L CALCIUM (test code = 2209) 9.5 MG/DL PROTEIN, TOTAL (test code = 2229) 7.5 G/DL ALBUMIN (test code = 2201) 3.8 G/DL CALC GLOBULIN (test code = 2240) 3.7 G/DL CALC A/G RATIO (test code = 2234) 1.0 RATIO BILIRUBIN, TOTAL (test code = 2207) 1.6 MG/DL ALKALINE PHOSPHATASE (test code = 2204) 154 U/L AST (test code = 2218) 113 U/L ALT (test code = 2219) 81 U/L Kamar Ramos MarjLIPID [id number] 00:00:00* Test Item Value Reference Range Interpretation Comme nts CHOLESTEROL (test code = 2210) 115 MG/DL TRIGLYCERIDES (test code = 2232) 96 MG/DL HDL CHOLESTEROL (test code = 2220) 41 MG/DL CALC LDL CHOL (test code = 2237) 56 MG/DL RISK RATIO LDL/HDL (test cod e = 2238) 1.37 RATIO Kamar McmahanCBC W/AUTO [id number] 00:00:00* Test Item Value Reference Range Interpretation Comme nts WBC (test code = 1001) 6.9 K/UL [...] = 1013) 0.7 % IMMATURE GRANULOCYTES (test code = 1036) 0.3 % NUCLEATED RBCS (test code = 1065) 0.0 /100WBC'S PLATELET COUNT (test code = 1015) 88 K/UL ABSOLUTE NEUTROPHILS (test c ode = 1066) 3.26 K/UL ABSOLUTE LYMPHOCYTES (test c ode = 1067) 2.80 K/UL ABSOLUTE MONOCYTES (test cod e = 1068) 0.58 K/UL ABSOLUTE EOSINOPHILS (test c ode = 1040) 0.16 K/UL ABSOLUTE BASOPHILS (test cod e = 1069) 0.05 K/UL ABS IMMATURE GRANULOCYTES (t est code = 1020) 0.02 K/UL ABS NUCLEATED RBCS (test cod e = 73145) 0.00 K/UL Kamar McmahanMISCELLANEOUS LAB [id number] 10:27:00* Test Item Value Reference Range Interpretation Comme nts SCAN RESULT (test code = 6094572) See scanned [id number] 14:57:00* Test Item Value Reference Range Interpretation Comme nts FERRITIN (BEAKER) (test code = 361) 425.05 ng/mL 5.00-275.00 H Counseling Services Manager ID - JAVI CALPHA FETOPROTEIN (AFP), TUMOR [id number] 14:16:00* Test Item Value Reference Range Interpretation Comme nts ALPHA-FETOPROTEIN (BEAKER) ( test code = 1094) 38.9 ng/mL <10.0 H Counseling Services Manager ID - MARJ MHEPATITIS B CORE ANTIBODY, [id number] 14:16:00* Test Item Value Reference Range Interpretation Comme nts HEPATITIS B CORE TOTAL ANTIB BOY (BEAKER) (test code = 497) Nonreactive Nonreactive Counseling Services Manager ID - MARJ ADÁN, TIBC, % SAT. (WITHOUT FERRITIN)2021-04-16 13:52:00* Test Item Value Reference Range Interpretation Comme nts IRON (BEAKER) (test code = 547) 136.0 ug/dL 40.0-160.0 TOTAL IRON BINDING CAPACITY (BEAKER) (test code = 769) 325 ug/dL 250-450 IRON % SATURATION (2) (BEAKE R) (test code = 2590) 42 % 20-55 Counseling Services Manager ID - MARJ MCOMPREHENSIVE METABOLIC [id number] 13:50:00* Test Item Value Reference Range Interpretation Comme nts TOTAL PROTEIN (BEAKER) (test code = 770) 7.9 gm/dL 6.0-8.3 ALBUMIN (BEAKER) (test code = 1145) 3.8 g/dL 3.5-5.0 ALKALINE PHOSPHATASE (BEAKER) (test code = 346) 175 U/L 40-150 H BILIRUBIN TOTAL (BEAKER) (test code = 377) 1.9 mg/dL 0.2-1.2 H SODIUM (BEAKER) (test code = 381) 136 meq/L 136-145 POTASSIUM (BEAKER) (test code = 379) 4.8 meq/L 3.5-5.1 CHLORIDE (BEAKER) (test code = 382) 106 meq/L 98-107 CO2 (BEAKER) (test code = 355) 24 meq/L 22-29 BLOOD UREA NITROGEN (BEAKER) (test code = 354) 10 mg/dL 7-21 CREATININE (BEAKER) (test code = 358) 0.76 mg/dL 0.57-1.25 GLUCOSE RANDOM (BEAKER) (test code = 652) 88 mg/dL 70-105 CALCIUM (BEAKER) (test code = 697) 9.3 mg/dL 8.4-10.2 AST (SGOT) (BEAKER) (test code = 353) 106 U/L 5-34 H ALT (SGPT) (BEAKER) (test code = 347) 96 U/L 6-55 H EGFR (BEAKER) (test code = 1092) 94 mL/min/1.73 sq m ESTIMATED GFR IS NOT ACCURATE CREATININE CLEARANCE IN PREDICTING GLOMERULAR FILTRATION RATE. ESTIMATED GFR IS NOT APPLICABLE FOR DIALYSIS PATIENTS. Counseling Services Manager ID Julianna MCMAHAN MBILIRUBIN, [id number] 13:50:00* Test Item Value Reference Range Interpretation Comme nts BILIRUBIN DIRECT (BEAKER) (t est code = 706) 1.1 mg/dL 0.1-0.5 H Counseling Services Manager ID - MARJ MPROTHROMBIN TIME/[id number] 13:30:00* Test Item Value Reference Range Interpretation Comme nts PROTIME (BEAKER) (test code = 759) 14.9 seconds 11.9-14.2 H INR (BEAKER) (test code = 370) 1.20 See_Comment [Autom[employer]] The system which generated this result transmitted reference range: <=5.90. The reference range was not used to interpret this result as normal/abnormal. RECOMMENDED COUMADIN/WARFARIN INR THERAPY RANGESSTANDARD DOSE: 2.0 - 3.0 Includes: PROPHYLAXIS for venous thrombosis, systemic embolization; TREATMENT for venous thrombosis and/or pulmonary embolus.HIGH RISK: Target INR is 2.5-3.5 for patients with mechanical heart valves.CBC W/PLT COUNT & AUTO DIFFERENTIAL 2021-04-16 13:25:00* Test Item Value Reference Range Interpretation Comme nts WHITE BLOOD CELL COUNT (BEAK ER) (test code = 775) 8.3 K/ L 3.5-10.5 RED BLOOD CELL COUNT (BEAKER ) (test code = 761) 3.96 M/ L 3.93-5.22 HEMOGLOBIN (BEAKER) (test co de = 410) 13.1 GM/DL 11.2-15.7 HEMATOCRIT (BEAKER) (test co de = 411) 40.8 % 34.1-44.9 MEAN CORPUSCULAR VOLUME (APRIL KER) (test code = 753) 103.0 fL 79.4-94.8 H MEAN CORPUSCULAR HEMOGLOBIN (BEAKER) (test code = 751) 33.1 pg 25.6-32.2 H MEAN CORPUSCULAR HEMOGLOBIN CONC (BEAKER) (test code = 752) 32.1 GM/DL 32.2-35.5 L RED CELL DISTRIBUTION WIDTH (BEAKER) (test code = 412) 13.6 % 11.7-14.4 PLATELET COUNT (BEAKER) (darlin t code = 756) 97 K/CU MM 150-450 L MEAN PLATELET VOLUME (BEAKER ) (test code = 754) 12.8 fL 9.4-12.3 H NUCLEATED RED BLOOD CELLS (B EAKER) (test code = 413) 0 /100 WBC 0-0 NEUTROPHILS RELATIVE PERCENT (BEAKER) (test code = 429) 62 % LYMPHOCYTES RELATIVE PERCENT (BEAKER) (test code = 430) 23 % MONOCYTES RELATIVE PERCENT (BEAKER) (test code = 431) 10 % EOSINOPHILS RELATIVE PERCENT (BEAKER) (test code = 432) 4 % BASOPHILS RELATIVE PERCENT (BEAKER) (test code = 437) 1 % NEUTROPHILS ABSOLUTE COUNT (BEAKER) (test code = 670) 5.12 K/ L 1.56-6.13 LYMPHOCYTES ABSOLUTE COUNT (BEAKER) (test code = 414) 1.92 K/ L 1.18-3.74 MONOCYTES ABSOLUTE COUNT (BE JAZLYN) (test code = 415) 0.86 K/ L 0.24-0.36 H EOSINOPHILS ABSOLUTE COUNT (BEAKER) (test code = 416) 0.30 K/ L 0.04-0.36 BASOPHILS ABSOLUTE COUNT (BE JAZLYN) (test code = 417) 0.05 K/ L 0.01-0.08 IMMATURE GRANULOCYTES-RELATI VE PERCENT (BEAKER) (test code = 2801) 0 % 0-1 CBC W/AUTO [id number] 00:00:00* Test Item Value Reference Range Interpretation Comme nts WBC (test code = 1001) 10.7 K/UL [...] code = 1015) 135 K/UL COMPREHENSIVE METABOLIC [id number] 00:00:00* Test Item Value Reference Range Interpretation Comme nts GLUCOSE (test code = 2217) 95 MG/DL BUN (test code = 2208) 8 MG/DL CREATININE (test code = 2214) 0.78 MG/DL eGFR AMER. (test cod e = 91178) 97 ML/MIN/1.73 eGFR NON- AMER. (test code = 20192) 84 ML/MIN/1.73 CALC BUN/CREAT (test code = 2235) 10 RATIO SODIUM (test code = 2231) 137 MEQ/L POTASSIUM (test code = 2228) 5.2 MEQ/L CHLORIDE (test code = 2215) 104 MEQ/L CARBON DIOXIDE (test code = 2206) 22 MEQ/L CALCIUM (test code = 2209) 10.1 MG/DL PROTEIN, TOTAL (test code = 2229) 8.5 G/DL ALBUMIN (test code = 2201) 4.4 G/DL CALC GLOBULIN (test code = 2240) 4.1 G/DL CALC A/G RATIO (test code = 2234) 1.1 RATIO BILIRUBIN, TOTAL (test code = 2207) 0.9 MG/DL ALKALINE PHOSPHATASE (test code = 2204) 130 U/L AST (test code = 2218) 109 U/L ALT (test code = 2219) 88 U/L LIPID [id number] 00:00:00* Test Item Value Reference Range Interpretation Comme nts CHOLESTEROL (test code = 2210) 119 MG/DL TRIGLYCERIDES (test code = 2232) 140 MG/DL HDL CHOLESTEROL (test code = 2220) 32 MG/DL CALC LDL CHOL (test code = 2237) 65 MG/DL RISK RATIO LDL/HDL (test cod e = 2238) 2.03 RATIO COMPREHENSIVE METABOLIC [id number] 00:00:00* Test Item Value Reference Range Interpretation Comme nts GLUCOSE (test code = 2217) 95 MG/DL BUN (test code = 2208) 8 MG/DL CREATININE (test code = 2214) 0.78 MG/DL eGFR AMER. (test cod e = 06317) 97 ML/MIN/1.73 eGFR NON- AMER. (test code = 12759) 84 ML/MIN/1.73 CALC BUN/CREAT (test code = 2235) 10 RATIO SODIUM (test code = 2231) 137 MEQ/L POTASSIUM (test code = 2228) 5.2 MEQ/L CHLORIDE (test code = 2215) 104 MEQ/L CARBON DIOXIDE (test code = 2206) 22 MEQ/L CALCIUM (test code = 2209) 10.1 MG/DL PROTEIN, TOTAL (test code = 2229) 8.5 G/DL ALBUMIN (test code = 2201) 4.4 G/DL CALC GLOBULIN (test code = 2240) 4.1 G/DL CALC A/G RATIO (test code = 2234) 1.1 RATIO BILIRUBIN, TOTAL (test code = 2207) 0.9 MG/DL ALKALINE PHOSPHATASE (test code = 2204) 130 U/L AST (test code = 2218) 109 U/L ALT (test code = 2219) 88 U/L Kamar F AustinLIPID [id number] 00:00:00* Test Item Value Reference Range Interpretation Comme nts CHOLESTEROL (test code = 2210) 119 MG/DL TRIGLYCERIDES (test code = 2232) 140 MG/DL HDL CHOLESTEROL (test code = 2220) 32 MG/DL CALC LDL CHOL (test code = 2237) 65 MG/DL RISK RATIO LDL/HDL (test cod e = 2238) 2.03 RATIO [facility] W/AUTO [id number] 00:00:00* Test Item Value Reference Range Interpretation Comme nts WBC (test code = 1001) 10.7 K/UL [...] COUNT (test code = 1015) 135 K/UL Kam[facility] W/AUTO [id number] 00:00:00* Test Item Value Reference Range Interpretation Comme nts WBC (test code = 1001) 6.0 K/UL [...] (test code = 1015) 81 K/UL LIPID [id number] 00:00:00* Test Item Value Reference Range Interpretation Comme nts CHOLESTEROL (test code = 2210) 131 MG/DL TRIGLYCERIDES (test code = 2232) 108 MG/DL HDL CHOLESTEROL (test code = 2220) 28 MG/DL CALC LDL CHOL (test code = 2237) 81 MG/DL RISK RATIO LDL/HDL (test cod e = 2238) 2.91 RATIO COMPREHENSIVE METABOLIC [id number] 00:00:00* Test Item Value Reference Range Interpretation Comme nts GLUCOSE (test code = 2217) 85 MG/DL BUN (test code = 2208) 13 MG/DL CREATININE (test code = 2214) 0.78 MG/DL eGFR AMER. (test cod e = 70790) 98 ML/MIN/1.73 eGFR NON- AMER. (test code = 85368) 84 ML/MIN/1.73 CALC BUN/CREAT (test code = 2235) 17 RATIO SODIUM (test code = 2231) 143 MEQ/L POTASSIUM (test code = 2228) 4.5 MEQ/L CHLORIDE (test code = 2215) 105 MEQ/L CARBON DIOXIDE (test code = 2206) 24 MEQ/L CALCIUM (test code = 2209) 9.6 MG/DL PROTEIN, TOTAL (test code = 2229) 7.6 G/DL ALBUMIN (test code = 2201) 3.9 G/DL CALC GLOBULIN (test code = 2240) 3.7 G/DL CALC A/G RATIO (test code = 2234) 1.1 RATIO BILIRUBIN, TOTAL (test code = 2207) 0.7 MG/DL ALKALINE PHOSPHATASE (test code = 2204) 171 U/L AST (test code = 2218) 73 U/L ALT (test code = 2219) 54 U/L LIPID [id number] 00:00:00* Test Item Value Reference Range Interpretation Comme nts CHOLESTEROL (test code = 2210) 131 MG/DL TRIGLYCERIDES (test code = 2232) 108 MG/DL HDL CHOLESTEROL (test code = 2220) 28 MG/DL CALC LDL CHOL (test code = 2237) 81 MG/DL RISK RATIO LDL/HDL (test cod e = 2238) 2.91 RATIO Kamar F AustinCOMPREHENSIVE METABOLIC [id number] 00:00:00* Test Item Value Reference Range Interpretation Comme nts GLUCOSE (test code = 2217) 85 MG/DL BUN (test code = 2208) 13 MG/DL CREATININE (test code = 2214) 0.78 MG/DL eGFR AMER. (test cod e = 12861) 98 ML/MIN/1.73 eGFR NON- AMER. (test code = 04423) 84 ML/MIN/1.73 CALC BUN/CREAT (test code = 2235) 17 RATIO SODIUM (test code = 2231) 143 MEQ/L POTASSIUM (test code = 2228) 4.5 MEQ/L CHLORIDE (test code = 2215) 105 MEQ/L CARBON DIOXIDE (test code = 2206) 24 MEQ/L CALCIUM (test code = 2209) 9.6 MG/DL PROTEIN, TOTAL (test code = 2229) 7.6 G/DL ALBUMIN (test code = 2201) 3.9 G/DL CALC GLOBULIN (test code = 2240) 3.7 G/DL CALC A/G RATIO (test code = 2234) 1.1 RATIO BILIRUBIN, TOTAL (test code = 2207) 0.7 MG/DL ALKALINE PHOSPHATASE (test code = 2204) 171 U/L AST (test code = 2218) 73 U/L ALT (test code = 2219) 54 U/L Kamar McmahanConchita W/AUTO [id number] 00:00:00* Test Item Value Reference Range Interpretation Comme nts WBC (test code = 1001) 6.0 K/UL [...] COUNT (test code = 1015) 81 K/UL Kamar F AustinVAGINAL PATHOGENS DNA [id number] 00:00:00* Test Item Value Reference Range Interpretation Comme nts PILY SPECIES (test code = ) NEGATIVE G. VAGINALIS (test code = 26276) POSITIVE T. VAGINALIS (test code = 68460) NEGATIVE VAGINAL PATHOGENS DNA [id number] 00:00:00* Test Item Value Reference Range Interpretation Comme nts PILY SPECIES (test code = ) NEGATIVE G. VAGINALIS (test code = 23441) POSITIVE T. VAGINALIS (test code = 90267) NEGATIVE Kamar Ramos AustinPAP TEST, THINPREP, [id number] 00:00:00* Test Item Value Reference Range Interpretation Comme nts SOURCE: (test code = 8001) Vaginal SLIDES: (test code = 8011) 1 LMP: (test code = 8021) 2011 SPECIMEN ADEQUACY: (test code = 12063) (NOTE) INTERPRETATION: (test code = 69657) NILM/NO EPITH. ABNORMALITY;SEE BELOW MACHINE WORKER: (test code = 8101) JOHN MARIE,CT([facility]) LOCATION: (test code = 19988) (NOTE) CPT: (test code = 8140) (NOTE) HPV HIGH RISK WITH GENOTYPE, [id number] 00:00:00* Test Item Value Reference Range Interpretation Comme nts HPV HIGH RISK INTERP (test c ode = 32492) NEGATIVE HPV 16 (test code = 00124) NEGATIVE HPV 18 (test code = 55662) NEGATIVE HPV, HR, OTHER GENOTYPES (te st code = 21132) NEGATIVE HPV HIGH RISK WITH GENOTYPE, [id number] 00:00:00* Test Item Value Reference Range Interpretation Comme nts HPV HIGH RISK INTERP (test c ode = 70252) NEGATIVE HPV 16 (test code = 52167) NEGATIVE HPV 18 (test code = 11814) NEGATIVE HPV, HR, OTHER GENOTYPES (te st code = 51568) NEGATIVE Kamar McmahanPAP TEST, THINPREP, [id number] 00:00:00* Test Item Value Reference Range Interpretation Comme nts SOURCE: (test code = 8001) Vaginal SLIDES: (test code = 8011) 1 LMP: (test code = 8021) 2011 SPECIMEN ADEQUACY: (test code = 38324) (NOTE) INTERPRETATION: (test code = 93610) NILM/NO EPITH. ABNORMALITY;SEE BELOW MACHINE WORKER: (test code = 8101) JOHN MARIE,CT([facility]) LOCATION: (test code = 13437) (NOTE) CPT: (test code = 8140) (NOTE) Kamar Ramos AustinHEMOGLOBIN [id number] 00:00:00* Test Item Value Reference Range Interpretation Comme nts HEMOGLOBIN A1c (test code = 70657) 4.7 % CBC W/AUTO [id number] 00:00:00* Test Item Value Reference Range Interpretation Comme nts WBC (test code = 1001) 6.6 K/UL [...] code = 1015) 88 K/UL COMPREHENSIVE METABOLIC [id number] 00:00:00* Test Item Value Reference Range Interpretation Comme nts GLUCOSE (test code = 2217) 84 MG/DL BUN (test code = 2208) 11 MG/DL CREATININE (test code = 2214) 0.79 MG/DL eGFR AMER. (test cod e = 45357) 97 ML/MIN/1.73 eGFR NON- AMER. (test code = 72596) 84 ML/MIN/1.73 CALC BUN/CREAT (test code = 2235) 14 RATIO SODIUM (test code = 2231) 143 MEQ/L POTASSIUM (test code = 2228) 5.6 MEQ/L CHLORIDE (test code = 2215) 107 MEQ/L CARBON DIOXIDE (test code = 2206) 26 MEQ/L CALCIUM (test code = 2209) 8.9 MG/DL PROTEIN, TOTAL (test code = 2229) 7.0 G/DL ALBUMIN (test code = 2201) 3.4 G/DL CALC GLOBULIN (test code = 2240) 3.6 G/DL CALC A/G RATIO (test code = 2234) 0.9 RATIO BILIRUBIN, TOTAL (test code = 2207) 0.9 MG/DL ALKALINE PHOSPHATASE (test code = 2204) 112 U/L AST (test code = 2218) 63 U/L ALT (test code = 2219) 45 U/L LIPID [id number] 00:00:00* Test Item Value Reference Range Interpretation Comme nts CHOLESTEROL (test code = 2210) 132 MG/DL TRIGLYCERIDES (test code = 2232) 125 MG/DL HDL CHOLESTEROL (test code = 2220) 24 MG/DL CALC LDL CHOL (test code = 2237) 83 MG/DL RISK RATIO LDL/HDL (test cod e = 2238) 3.46 RATIO CBC W/AUTO [id number] 00:00:00* Test Item Value Reference Range Interpretation Comme nts WBC (test code = 1001) 6.6 K/UL [...] COUNT (test code = 1015) 88 K/UL Kamargagan McmahanCOMPREHENSIVE METABOLIC [id number] 00:00:00* Test Item Value Reference Range Interpretation Comme nts GLUCOSE (test code = 2217) 84 MG/DL BUN (test code = 2208) 11 MG/DL CREATININE (test code = 2214) 0.79 MG/DL eGFR AMER. (test cod e = 83436) 97 ML/MIN/1.73 eGFR NON- AMER. (test code = 69614) 84 ML/MIN/1.73 CALC BUN/CREAT (test code = 2235) 14 RATIO SODIUM (test code = 2231) 143 MEQ/L POTASSIUM (test code = 2228) 5.6 MEQ/L CHLORIDE (test code = 2215) 107 MEQ/L CARBON DIOXIDE (test code = 2206) 26 MEQ/L CALCIUM (test code = 2209) 8.9 MG/DL PROTEIN, TOTAL (test code = 2229) 7.0 G/DL ALBUMIN (test code = 2201) 3.4 G/DL CALC GLOBULIN (test code = 2240) 3.6 G/DL CALC A/G RATIO (test code = 2234) 0.9 RATIO BILIRUBIN, TOTAL (test code = 2207) 0.9 MG/DL ALKALINE PHOSPHATASE (test code = 220) 112 U/L AST (test code = 2218) 63 U/L ALT (test code = 2219) 45 U/L Kamar McmahanLIPID [id number] 00:00:00* Test Item Value Reference Range Interpretation Comme nts CHOLESTEROL (test code = 2210) 132 MG/DL TRIGLYCERIDES (test code = 2232) 125 MG/DL HDL CHOLESTEROL (test code = 2220) 24 MG/DL CALC LDL CHOL (test code = 2237) 83 MG/DL RISK RATIO LDL/HDL (test cod e = 2238) 3.46 RATIO Kamar McmahanHEMOGLOBIN [id number] 00:00:00* Test Item Value Reference Range Interpretation Comme nts HEMOGLOBIN A1c (test code = 30370) 4.7 % Kamar Ramos MarjHCV RNA, PCR QUANT [REFLEX]2017-12-18 00:00:00* Test Item Value Reference Range Interpretation Comme nts HCV RNA, PCR QUANT (test cod e = 4571) [id number] IU/ML HCV VIRAL LOG (test code = 76218) 6.932 LOGIU/ML HCV RNA, PCR QUANT [REFLEX]2017-12-18 00:00:00* Test Item Value Reference Range Interpretation Comme nts HCV RNA, PCR QUANT (test cod e = 4571) [id number] IU/ML HCV VIRAL LOG (test code = 34488) 6.932 LOGIU/ML Kamar Ramos MarjCBC W/AUTO [id number] 00:00:00* Test Item Value Reference Range Interpretation Comme nts WBC (test code = 1001) 7.1 K/UL [...] (test code = 1016) (NOTE) COMPREHENSIVE METABOLIC [id number] 00:00:00* Test Item Value Reference Range Interpretation Comme nts GLUCOSE (test code = 2217) 109 MG/DL BUN (test code = 2208) 14 MG/DL CREATININE (test code = 2214) 0.73 MG/DL eGFR AMER. (test cod e = 52122) 107 ML/MIN/1.73 eGFR NON- AMER. (test code = 94596) 93 ML/MIN/1.73 CALC BUN/CREAT (test code = 2235) 19 RATIO SODIUM (test code = 2231) 142 MEQ/L POTASSIUM (test code = 2228) 5.0 MEQ/L CHLORIDE (test code = 2215) 99 MEQ/L CARBON DIOXIDE (test code = 2206) 27 MEQ/L CALCIUM (test code = 2209) 9.6 MG/DL PROTEIN, TOTAL (test code = 2229) 8.0 G/DL ALBUMIN (test code = 2201) 3.8 G/DL CALC GLOBULIN (test code = 2240) 4.2 G/DL CALC A/G RATIO (test code = 2234) 0.9 RATIO BILIRUBIN, TOTAL (test code = 2207) 0.7 MG/DL ALKALINE PHOSPHATASE (test code = 2204) 163 U/L AST (test code = 2218) 85 U/L ALT (test code = 2219) 57 U/L LIPID [id number] 00:00:00* Test Item Value Reference Range Interpretation Comme nts CHOLESTEROL (test code = 2210) 153 MG/DL TRIGLYCERIDES (test code = 2232) 239 MG/DL HDL CHOLESTEROL (test code = 2220) 27 MG/DL CALC LDL CHOL (test code = 2237) 78 MG/DL RISK RATIO LDL/HDL (test cod e = 2238) 2.90 RATIO HEPATITIS C REFLEX [id number] 00:00:00* Test Item Value Reference Range Interpretation Comme nts HEPATITIS C ANTIBODY (test c ode = 4675) REACTIVE COMPREHENSIVE METABOLIC [id number] 00:00:00* Test Item Value Reference Range Interpretation Comme nts GLUCOSE (test code = 2217) 109 MG/DL BUN (test code = 2208) 14 MG/DL CREATININE (test code = 2214) 0.73 MG/DL eGFR AMER. (test cod e = 77482) 107 ML/MIN/1.73 eGFR NON- AMER. (test code = 64726) 93 ML/MIN/1.73 CALC BUN/CREAT (test code = 2235) 19 RATIO SODIUM (test code = 2231) 142 MEQ/L POTASSIUM (test code = 2228) 5.0 MEQ/L CHLORIDE (test code = 2215) 99 MEQ/L CARBON DIOXIDE (test code = 2206) 27 MEQ/L CALCIUM (test code = 2209) 9.6 MG/DL PROTEIN, TOTAL (test code = 2229) 8.0 G/DL ALBUMIN (test code = 2201) 3.8 G/DL CALC GLOBULIN (test code = 2240) 4.2 G/DL CALC A/G RATIO (test code = 2234) 0.9 RATIO BILIRUBIN, TOTAL (test code = 2207) 0.7 MG/DL ALKALINE PHOSPHATASE (test code = 2204) 163 U/L AST (test code = 2218) 85 U/L ALT (test code = 2219) 57 U/L Kamar Ramos AustinLIPID [id number] 00:00:00* Test Item Value Reference Range Interpretation Comme nts CHOLESTEROL (test code = 2210) 153 MG/DL TRIGLYCERIDES (test code = 2232) 239 MG/DL HDL CHOLESTEROL (test code = 2220) 27 MG/DL CALC LDL CHOL (test code = 2237) 78 MG/DL RISK RATIO LDL/HDL (test cod e = 2238) 2.90 RATIO Kamar McmahanHEPATITIS C REFLEX [id number] 00:00:00* Test Item Value Reference Range Interpretation Comme nts HEPATITIS C ANTIBODY (test c ode = 4675) REACTIVE Kamar McmahanCBC W/AUTO [id number] 00:00:00* Test Item Value Reference Range Interpretation Comme nts WBC (test code = 1001) 7.1 K/UL [...] K/UL COMMENTS (test code = 1016) (NOTE) Kamar McmahanCOMPREHENSIVE METABOLIC [id number] 00:00:00* Test Item Value Reference Range Interpretation Comme nts GLUCOSE (test code = 2217) 102 MG/DL BUN (test code = 2208) 17 MG/DL CREATININE (test code = 2214) 0.64 MG/DL eGFR AMER. (test cod e = 48661) 116 ML/MIN/1.73 eGFR NON- AMER. (test code = 47400) 100 ML/MIN/1.73 CALC BUN/CREAT (test code = 2235) 27 RATIO SODIUM (test code = 2231) 145 MEQ/L POTASSIUM (test code = 2228) 4.8 MEQ/L CHLORIDE (test code = 2215) 108 MEQ/L CARBON DIOXIDE (test code = 2206) 26 MEQ/L CALCIUM (test code = 2209) 9.1 MG/DL PROTEIN, TOTAL (test code = 2229) 6.6 G/DL ALBUMIN (test code = 2201) 3.5 G/DL CALC GLOBULIN (test code = 2240) 3.1 G/DL CALC A/G RATIO (test code = 2234) 1.1 RATIO BILIRUBIN, TOTAL (test code = 2207) 0.6 MG/DL ALKALINE PHOSPHATASE (test code = 2204) 177 U/L AST (test code = 2218) 78 U/L ALT (test code = 2219) 54 U/L LIPID [id number] 00:00:00* Test Item Value Reference Range Interpretation Comme nts CHOLESTEROL (test code = 2210) 126 MG/DL TRIGLYCERIDES (test code = 2232) 127 MG/DL HDL CHOLESTEROL (test code = 2220) 29 MG/DL CALC LDL CHOL (test code = 2237) 72 MG/DL RISK RATIO LDL/HDL (test cod e = 2238) 2.47 RATIO CBC W/AUTO [id number] 00:00:00* Test Item Value Reference Range Interpretation Comme nts WBC (test code = 1001) 4.7 K/UL [...] K/UL COMMENTS (test code = 1016) (NOTE) LIPID [id number] 00:00:00* Test Item Value Reference Range Interpretation Comme nts CHOLESTEROL (test code = 2210) 126 MG/DL TRIGLYCERIDES (test code = 2232) 127 MG/DL HDL CHOLESTEROL (test code = 2220) 29 MG/DL CALC LDL CHOL (test code = 2237) 72 MG/DL RISK RATIO LDL/HDL (test cod e = 2238) 2.47 RATIO Kamar McmahanCBC W/AUTO [id number] 00:00:00* Test Item Value Reference Range Interpretation Comme nts WBC (test code = 1001) 4.7 K/UL [...] K/UL COMMENTS (test code = 1016) (NOTE) Kamar Richard MarjCOMPREHENSIVE METABOLIC [id number] 00:00:00* Test Item Value Reference Range Interpretation Comme nts GLUCOSE (test code = 2217) 102 MG/DL BUN (test code = 2208) 17 MG/DL CREATININE (test code = 2214) 0.64 MG/DL eGFR AMER. (test cod e = 54505) 116 ML/MIN/1.73 eGFR NON- AMER. (test code = 80213) 100 ML/MIN/1.73 CALC BUN/CREAT (test code = 2235) 27 RATIO SODIUM (test code = 2231) 145 MEQ/L POTASSIUM (test code = 2228) 4.8 MEQ/L CHLORIDE (test code = 2215) 108 MEQ/L CARBON DIOXIDE (test code = 2206) 26 MEQ/L CALCIUM (test code = 2209) 9.1 MG/DL PROTEIN, TOTAL (test code = 2229) 6.6 G/DL ALBUMIN (test code = 2201) 3.5 G/DL CALC GLOBULIN (test code = 2240) 3.1 G/DL CALC A/G RATIO (test code = 2234) 1.1 RATIO BILIRUBIN, TOTAL (test code = 2207) 0.6 MG/DL ALKALINE PHOSPHATASE (test code = 2204) 177 U/L AST (test code = 2218) 78 U/L ALT (test code = 2219) 54 U/L Kamar Ramos MarjPATHOLOGIST SMEAR [id number] 00:00:00* Test Item Value Reference Range Interpretation Comme nts DIAGNOSIS: (test code = 8200) (NOTE) COMMENTS: (test code = 8205) (NOTE) MICROSCOPIC DESCRIPTION: (te st code = 8210) (NOTE) PATHOLOGIST: (test code = 8250) (NOTE) WBC [...] (test code = 1016) (NOTE) PATHOLOGIST SMEAR [id number] 00:00:00* Test Item Value Reference Range Interpretation Comme nts DIAGNOSIS: (test code = 8200) (NOTE) COMMENTS: (test code = 8205) (NOTE) MICROSCOPIC DESCRIPTION: (te st code = 8210) (NOTE) PATHOLOGIST: (test code = 8250) (NOTE) WBC [...] K/UL COMMENTS (test code = 1016) (NOTE) Kamar McmahanLEUKEMIA/LYMPHOMA [id number] 00:00:00* Test Item Value Reference Range Interpretation Comme nts FLOW CYTOMETRY (test code = 57167) (NOTE) PATHOLOGIST: (test code = 8250) (NOTE) DISCLAIMER (test code = 96440) (NOTE) CPT: (test code = 205440) (NOTE) NUMBER OF SITES (test code = 70848) (NOTE) LEUKEMIA/LYMPHOMA [id number] 00:00:00* Test Item Value Reference Range Interpretation Comme nts FLOW CYTOMETRY (test code = 14460) (NOTE) PATHOLOGIST: (test code = 8250) (NOTE) DISCLAIMER (test code = 61574) (NOTE) CPT: (test code = 995126) (NOTE) NUMBER OF SITES (test code = 76976) (NOTE) Kamar McmahanSEDIMENTATION [id number] 00:00:00* Test Item Value Reference Range Interpretation Comme nts SEDIMENTATION RATE (test cod e = 1017) 7 MM/HOUR SEDIMENTATION [id number] 00:00:00* Test Item Value Reference Range Interpretation Comme nts SEDIMENTATION RATE (test cod e = 1017) 7 MM/HOUR Kamar McmahanCBC W/AUTO [id number] 00:00:00* Test Item Value Reference Range Interpretation Comme nts WBC (test code = 1001) 6.2 K/UL [...] code = 1015) 103 K/UL CBC W/AUTO [id number] 00:00:00* Test Item Value Reference Range Interpretation Comme nts WBC (test code = 1001) 6.2 K/UL [...] COUNT (test code = 1015) 103 K/UL Kamargagan McmahanCBC W/AUTO [id number] 00:00:00* Test Item Value Reference Range Interpretation Comme nts WBC (test code = 1001) TEST NOT PERFORMED K/UL CBC W/AUTO [id number] 00:00:00* Test Item Value Reference Range Interpretation Comme nts WBC (test code = 1001) TEST NOT PERFORMED K/UL Kamargagan McmahanPAP TEST, THINPREP, [id number] 00:00:00* Test Item Value Reference Range Interpretation Comme nts SOURCE: (test code = 8001) A) Cervical/Endocervical SLIDES: (test code = 8011) 1 LMP: (test code = 8021) SPECIMEN ADEQUACY: (test code = 41356) (NOTE) INTERPRETATION: (test code = 64609) NO EPITHELIAL ABNORMALITY SEE BELOW MACHINE WORKER: (test code = 8101) ANAND CALHOUN(ASCP) LOCATION: (test code = 70901) (NOTE) CPT: (test code = 8140) (NOTE) HPV HIGH RISK WITH GENOTYPE, [id number] 00:00:00* Test Item Value Reference Range Interpretation Comme nts HPV HIGH RISK INTERP (test c ode = 05442) NEGATIVE HPV 16 (test code = 64696) NEGATIVE HPV 18 (test code = 84384) NEGATIVE HPV, HR, OTHER GENOTYPES (te st code = 78339) NEGATIVE PAP TEST, THINPREP, [id number] 00:00:00* Test Item Value Reference Range Interpretation Comme nts SOURCE: (test code = 8001) A) Cervical/Endocervical SLIDES: (test code = 8011) 1 LMP: (test code = 8021) SPECIMEN ADEQUACY: (test code = 79935) (NOTE) INTERPRETATION: (test code = 15854) NO EPITHELIAL ABNORMALITY SEE BELOW MACHINE WORKER: (test code = 8101) ANAND CALHOUN(ASCP) LOCATION: (test code = 05099) (NOTE) CPT: (test code = 8140) (NOTE) Kamar Ramos MarjHPV HIGH RISK WITH GENOTYPE, [id number] 00:00:00* Test Item Value Reference Range Interpretation Comme nts HPV HIGH RISK INTERP (test c ode = 01861) NEGATIVE HPV 16 (test code = 76941) NEGATIVE HPV 18 (test code = 26787) NEGATIVE HPV, HR, OTHER GENOTYPES (te st code = 95860) NEGATIVE Kamar Ramos MarjCBC W/AUTO [id number] 00:00:00* Test Item Value Reference Range Interpretation Comme nts WBC (test code = 1001) 5.1 K/UL [...] code = 1015) 107 K/UL COMPREHENSIVE METABOLIC [id number] 00:00:00* Test Item Value Reference Range Interpretation Comme nts GLUCOSE (test code = 2217) 177 MG/DL BUN (test code = 2208) 9 MG/DL CREATININE (test code = 2214) 0.86 MG/DL eGFR AMER. (test cod e = 96279) 89 ML/MIN/1.73 eGFR NON- AMER. (test code = 37410) 77 ML/MIN/1.73 CALC BUN/CREAT (test code = 2235) 10 RATIO SODIUM (test code = 2231) 137 MEQ/L POTASSIUM (test code = 2228) 4.0 MEQ/L CHLORIDE (test code = 2215) 102 MEQ/L CARBON DIOXIDE (test code = 2206) 27 MEQ/L CALCIUM (test code = 2209) 9.3 MG/DL PROTEIN, TOTAL (test code = 2229) 7.4 G/DL ALBUMIN (test code = 2201) 3.4 G/DL CALC GLOBULIN (test code = 2240) 4.0 G/DL CALC A/G RATIO (test code = 2234) 0.9 RATIO BILIRUBIN, TOTAL (test code = 2207) 1.4 MG/DL ALKALINE PHOSPHATASE (test code = 2204) 115 U/L AST (test code = 2218) 82 U/L ALT (test code = 2219) 50 U/L COMPREHENSIVE METABOLIC [id number] 00:00:00* Test Item Value Reference Range Interpretation Comme nts GLUCOSE (test code = 2217) 177 MG/DL BUN (test code = 2208) 9 MG/DL CREATININE (test code = 2214) 0.86 MG/DL eGFR AMER. (test cod e = 27371) 89 ML/MIN/1.73 eGFR NON- AMER. (test code = 66193) 77 ML/MIN/1.73 CALC BUN/CREAT (test code = 2235) 10 RATIO SODIUM (test code = 2231) 137 MEQ/L POTASSIUM (test code = 2228) 4.0 MEQ/L CHLORIDE (test code = 2215) 102 MEQ/L CARBON DIOXIDE (test code = 2206) 27 MEQ/L CALCIUM (test code = 2209) 9.3 MG/DL PROTEIN, TOTAL (test code = 2229) 7.4 G/DL ALBUMIN (test code = 2201) 3.4 G/DL CALC GLOBULIN (test code = 2240) 4.0 G/DL CALC A/G RATIO (test code = 2234) 0.9 RATIO BILIRUBIN, TOTAL (test code = 2207) 1.4 MG/DL ALKALINE PHOSPHATASE (test code = 2204) 115 U/L AST (test code = 2218) 82 U/L ALT (test code = 2219) 50 U/L Kamar McmahanCBC W/AUTO [id number] 00:00:00* Test Item Value Reference Range Interpretation Comme nts WBC (test code = 1001) 5.1 K/UL [...] EOSINOPHILS (test code = 1012) 2 % PLATELET COUNT (test code = 1015) 107 K/UL Kamar McmahanCOMPREHENSIVE METABOLIC [id number] 00:00:00* Test Item Value Reference Range Interpretation Comme nts GLUCOSE (test code = 2217) 123 MG/DL BUN (test code = 2208) 10 MG/DL CREATININE (test code = 2214) 0.74 MG/DL eGFR AMER. (test cod e = 27833) 107 ML/MIN/1.73 eGFR NON- AMER. (test code = 73077) 92 ML/MIN/1.73 CALCULATED BUN/CREAT (test code = 2235) 14 RATIO SODIUM (test code = 2231) 140 MEQ/L POTASSIUM (test code = 2228) 4.4 MEQ/L CHLORIDE (test code = 2215) 102 MEQ/L CARBON DIOXIDE (test code = 2206) 20 MEQ/L CALCIUM (test code = 2209) 9.8 MG/DL PROTEIN, TOTAL (test code = 2229) 7.7 G/DL ALBUMIN (test code = 2201) 3.7 G/DL CALCULATED GLOBULIN (test code = 2240) 4.0 G/DL CALCULATED A/G RATIO (test code = 2234) 0.9 RATIO BILIRUBIN, TOTAL (test code = 2207) 0.8 MG/DL ALKALINE PHOSPHATASE (test code = 2204) 91 U/L SGOT (AST) (test code = 2218) 59 U/L SGPT (ALT) (test code = 2219) 45 U/L LIPID [id number] 00:00:00* Test Item Value Reference Range Interpretation Comme nts CHOLESTEROL (test code = 2210) 170 MG/DL TRIGLYCERIDES (test code = 2232) 170 MG/DL HDL CHOLESTEROL (test code = 2220) 41 MG/DL CALCULATED LDL CHOL (test co de = 2237) 95 MG/DL RISK RATIO LDL/HDL (test cod e = 2238) 2.32 RATIO CBC W/AUTO [id number] 00:00:00* Test Item Value Reference Range Interpretation Comme nts WBC (test code = 1001) 5.6 K/UL [...] (test code = 1015) 116 K/UL HEMOGLOBIN [id number] 00:00:00* Test Item Value Reference Range Interpretation Comme nts HEMOGLOBIN A1c (test code = 88864) 5.3 % [id number] 00:00:00* Test Item Value Reference Range Interpretation Comme nts TSH (test code = 2821) 1.5 UIU/ML LIPID [id number] 00:00:00* Test Item Value Reference Range Interpretation Comme nts CHOLESTEROL (test code = 2210) 170 MG/DL TRIGLYCERIDES (test code = 2232) 170 MG/DL HDL CHOLESTEROL (test code = 2220) 41 MG/DL CALCULATED LDL CHOL (test co de = 2237) 95 MG/DL RISK RATIO LDL/HDL (test cod e = 2238) 2.32 RATIO Kamar McmahanCBC W/AUTO [id number] 00:00:00* Test Item Value Reference Range Interpretation Comme nts WBC (test code = 1001) 5.6 K/UL [...] MONOCYTES (test code = 1011) 11 % PLATELET COUNT (test code = 1015) 116 K/UL Kamar McmahanHEMOGLOBIN [id number] 00:00:00* Test Item Value Reference Range Interpretation Comme donny HEMOGLOBIN A1c (test code = 56842) 5.3 % Kamar [id number] 00:00:00* Test Item Value Reference Range Interpretation Comme nts TSH (test code = 2821) 1.5 UIU/ML Kamar McmahanCOMPREHENSIVE METABOLIC [id number] 00:00:00* Test Item Value Reference Range Interpretation Comme nts GLUCOSE (test code = 2217) 123 MG/DL BUN (test code = 2208) 10 MG/DL CREATININE (test code = 2214) 0.74 MG/DL eGFR AMER. (test cod e = 30601) 107 ML/MIN/1.73 eGFR NON- AMER. (test code = 82366) 92 ML/MIN/1.73 CALCULATED BUN/CREAT (test code = 2235) 14 RATIO SODIUM (test code = 2231) 140 MEQ/L POTASSIUM (test code = 2228) 4.4 MEQ/L CHLORIDE (test code = 2215) 102 MEQ/L CARBON DIOXIDE (test code = 2206) 20 MEQ/L CALCIUM (test code = 2209) 9.8 MG/DL PROTEIN, TOTAL (test code = 2229) 7.7 G/DL ALBUMIN (test code = 2201) 3.7 G/DL CALCULATED GLOBULIN (test code = 2240) 4.0 G/DL CALCULATED A/G RATIO (test code = 2234) 0.9 RATIO BILIRUBIN, TOTAL (test code = 2207) 0.8 MG/DL ALKALINE PHOSPHATASE (test code = 2204) 91 U/L SGOT (AST) (test code = 2218) 59 U/L SGPT (ALT) (test code = 2219) 45 U/L Kamar Mcmahan Consult Notes Date/Time Note Provider Source 2024-10-14 16:22:09 Spiritual Care Subjective Marion is a great storyteller that has a history of great stories. Reason For Visit Care Recipient: Patient Time spent: 30 minutes Reason for Visit: Admission request Interventions Relationship Building Interventions: Cultivated a relationship of care and support, Listened with empathy, Provided hospitality Exploration Interventions: Explored hopes, Facilitated storytelling Plan Follow-up: No follow-up warranted at this time TARY TECHNICIAN Pastoral Care [facility] 2024-10-14 13:35:46 Associated Order(s): IP CONSULT TO CASE MANAGEMENT Received CM consult, see flowsheets notes. TARY TECHNICIAN Case Management Hand T[employer] Trimmer [facility] 2024-09-18 09:04:22 Associated Order(s): CONSULT WOODS MANAGER-ADULT Spoke with pt's brother, Koffi Sterling regarding Medicaid coverage for placement. Explained that there are no rehab benefits under Medicaid, therefore she would only be potentially eligible for LTC placement under her Medicaid plan. Mr. Mcgowan has requested LTC Medicaid placement at [facility] in [place], [place]. Referral has been submitted. Will await final determination on placement. [facility]: [phone] IVON Butcher Kiln Labourer - Care Management [facility] [phone] [email or web address] - Health History and Physical Notes Date/Time Note Provider Source 2024-10-12 15:04:27 HOSPITAL MEDICINE HISTORY AND PHYSICAL NOTE Code Status No Order Chief Complaint No chief complaint on file. History Of Present Illness This is a 64-year-old female with past medical history of hepatitis C with liver cirrhosis with concomitant portal hypertension and esophageal varices, hepatocellular carcinoma; GERD, bipolar disorder, schizophrenia who presented from half-way due to inability to ambulate. Of note, she was recently admitted to [facility] from where she was discharged to the half-way but it appears the half-way was under impression that she could ambulate prior to accepting the patient. Patient states she had been wheelchair-bound due to ambulatory dysfunction and leg edema for months. On chart review, patient was admitted to [facility] and was worked up for similar symptoms and workup was unremarkable but was treated for doxycycline. Patient denies any chest pain, shortness of breath, or palpitations; no nausea, abdominal pain, diarrhea, or dysuria. Review of Systems A 14 point review of system completed and was negative except for listed above in HPI Past Medical History Hepatitis C Hepatic cirrhosis Portal hypertension Esophageal varices Hepatocellular carcinoma GERD Bipolar disorder Schizophrenia Bilateral lower extremities lymphedema Surgical History Family History Reviewed with patient, denies any Social History She has no history on file for tobacco use, alcohol use, and drug use. Allergies Patient has no known allergies. Home Medications No current facility-administered medications on file prior to encounter. No current outpatient medications on file prior to encounter. Physical Examination Last Recorded Vitals Blood pressure 128/70, pulse 70, temperature 37.1 ?C (98.7 ?F), resp. rate 20, height 1.676 m (5' 6"), weight 72.6 kg (160 lb), SpO2 98%. General: Lying comfortably in bed. No apparent distress HEENT: Normocephalic, atraumatic. Normal conjunctiva, no scleral icterus Neck: Supple, No lymphadenopathy. Heart: Normal S1, S2. Regular rate and rhythm Lungs: Good air entry bilaterally. Clear to auscultation Abdomen: Soft, nontender, nondistended. Normoactive bowel sounds Extremity: 2+ edema with bilateral lower extremities lymphedema. 2+ distal pulses Musculoskeletal: No joint swelling. Skin: warm and dry. Neuro: No focal deficit Psych: Alert and oriented x 3. Mood and affect are appropriate Pertinent Labs Pertinent Labs : Lab Results Component Value Date WBC 6.89 10/12/2024 Hgb 9.5 (L) 10/12/2024 Hct 32.1 (L) 10/12/2024 Plt Count 87 (L) 10/12/2024 Lab Results Component Value Date Sodium Lvl 141 10/12/2024 Potassium Lvl 3.4 10/12/2024 Chloride Lvl 104 10/12/2024 CO2 Lvl 31.5 (H) 10/12/2024 BUN 13 10/12/2024 Creatinine Lvl 0.92 10/12/2024 Glucose Lvl 164 (H) 10/12/2024 No results found for: "AST", "ALT", "ALKPHOS" Lab Results Component Value Date HS Troponin I 4 10/12/2024 Natriuretic Peptide B 237 (H) 10/12/2024 No components found for: "TSH;2" Pertinent Imaging XR chest 1 view Final Result 1. Yifz-ol-hletwwtylh enlarged cardiac silhouette. 2. Moderate pulmonary edema versus infiltrates, pneumonia. 3. Left lung volume loss. ELECTRONICALLY SIGNED BY TIM MERA MD ON 10/12/2024 AT 13:36. Assessment & Plan Acute pulmonary edema (CMS/HCC) (HCC) Likely due to volume overload in the setting of liver cirrhosis Patient recently had echocardiogram which showed normal LV systolic function, ejection fraction approximated at 60 to 65% Start IV Lasix Strict I's/O, daily weight Monitor renal function, replete electrolytes as needed Bilateral leg edema Chronic in the setting of below; also recently had US venous duplex of bilateral lower extremities which was negative for DVT Keep bilateral lower extremities elevated Place Herman stocking Lymphedema Lymphedema treatment in outpatient setting Hepatitis C Untreated Outpatient follow-up with clinical safety specialist for further management Liver cirrhosis (HCC) Secondary to above Resume home medications including Lasix, Lactulose Portal hypertension (CMS/HCC) (HCC) Will restart Propranolol Esophageal varices (HCC) As above Thrombocytopenia (HCC) Secondary to hepatic cirrhosis Will monitor Bipolar disorder (HCC) Resume home medication Macrocytic anemia Continue to monitor Physical debility PT/OT evaluation Activity as tolerated Fall precautions Prophylaxis apixaban - 5 MG Disposition Inpatient [facility] 2024-09-18 02:12:16 Medicine History & Physical Date of Service: 09/18/2024 Pt presents from: Home CC: Lower extremity edema History of Present Illness: Marion Sterling is a 64 year old female with past md hx including hypertension, alcohol induced cirrhosis, hepatitis C untreated, portal hypertension, varices, GERD, history of GI bleed, bipolar disorder and hepatocellular carcinoma that presents to the ED for lower extremity swelling. Patient does not wish to participate in exam per family and record she was seen at an outside hospital recently for cellulitis discharged home on oral antibiotics. Per family noticed increasing edema in both legs for the past few days and was brought to the hospital for evaluation. In the ED she was noted to be hypertensive. Labs do reveal elevated white blood cell count of 14. No fever. She is noted to be anemic with a hemoglobin of 7.9 g/dL normocytic in nature. Chemistry does reveal an elevated T. bili of 2.3 mg/dL with mildly elevated LFTs. Talk screen is negative UA is negative for white blood cells. In the ED she did receive a CT of abdomen pelvis which did show cirrhosis with related portal hypertension including splenomegaly and varices no ascites was seen. She is noted to be constipated and liver segment 7 shows peripherally calcified mass may represent granuloma versus locally treated mass. She also received a CT of the head which showed no acute intracranial abnormalities. Chest x-ray shows no acute abnormalities. Hospitalist was called for lower extremity edema On exam patient did not wish to answer my questions coherently. Per nursing staff she was yelling at them using profanity. Per nursing staff she is able to communicate when she wants was able to request sandwich and other needs when she wants to. I did discuss this with family who states that her recently passed and her mentation has declined precipitously. States she is on medication from her previous hospitalization including 2 antibiotics. There is no suspicion for homicidal or suicidal behavior but patient is refusing to participate fully in exam. ROS: Unable to obtain from patient Review of Hx/Meds: PMH: History reviewed. No pertinent past medical history. PSH: has no past surgical history on file. Family Hx: Noncontributory unless mentioned above Current Scheduled Medications Current IV Current Facility-Administered Medications: OLANZapine (ZyPREXA) tablet 5 mg, 5 mg, Oral, DAILY, Mahad Jimenez, acetaminophen (TYLENOL) tablet 650 mg, 650 mg, Oral, Q6HPRN, Cyndee Martínez MD cefTRIAXone (ROCEPHIN) 1,000 mg in water for injection, sterile 10 mL IV Push, 1,000 mg, Intravenous, Q24H ABX, Cyndee Martínez MD doxycycline hyclate (Vibramycin) capsule 100 mg, 100 mg, Oral, Q12HA2, Cyndee Martínez MD, 100 mg at 09/17/24 2243 enoxaparin (LOVENOX) injection 40 mg, 40 mg, Subcutaneous, DAILY, Cyndee Martínez MD furosemide (LASIX) injection 20 mg, 20 mg, Slow IV Push, BIDPC, Cyndee Martínez MD, 20 mg at 09/17/24 2243 HYDROcodone-acetaminophen (NORCO 5) tablet 1 tablet, 1 tablet, Oral, Q6HPRN, Cyndee Martínez MD lactulose (CEPHULAC) 10 gram/15 mL oral solution 30 mL, 30 mL, Oral, BID, Cyndee Martínez MD, 30 mL at 09/17/24 2243 morpHINE (4 mg/mL) injection 4 mg, 4 mg, Slow IV Push, Q4HPRN, Cyndee Martínez MD ondansetron (ZOFRAN (PF)) injection 4 mg, 4 mg, Slow IV Push, Q6HPRN, Cyndee Martínez MD ziprasidone (GEODON) injection 10 mg, 10 mg, Intramuscular, ONCE, Mahad Jimenez, Current Outpatient Medications: apixaban (ELIQUIS) 5 mg tablet, Take 1 tablet by mouth in the morning and 1 tablet in the evening., Disp: , Rfl: cefdinir 300 mg capsule, Take 1 capsule by mouth in the morning and 1 capsule in the evening., Disp: , Rfl: metroNIDAZOLE 500 mg tablet, Take 1 tablet by mouth every 8 (eight) hours., Disp: , Rfl: Objective: Vitals: Vitals: 09/17/24 2250 09/17/24 2300 09/18/24 0000 09/18/24 0100 BP: (!) 154/91 (!) 160/73 129/89 (!) 147/86 Pulse: 98 87 89 89 Resp: 16 16 16 16 Temp: SpO2: 100% 100% 99% 99% Weight: Height: I/O's: Intake/Output Summary (Last 24 hours) at 09/18/2024 0212 Last data filed at 09/17/2024 2250 Gross per 24 hour Intake 100 ml Output 1000 ml Net -900 ml Physical Exam: General: NAD, agitated, lying in bed comfortable, cogent speech. HEENT: anicteric, oral mucosa dry Neck: supple, no JVD, no bruits. Chest: CTA B/L, no W/R/C. Heart: RRR, S1/S2, no M/G/R Abdominal: BS normoactive, soft, ND, NT. Skin/Extremities: no rash, no cyanosis, warm and dry, + LE edema, mild right lower extremity erythema Neurological: CN II-XII grossly intact, no focal deficits. Labs: BMP:BMP NA (mmol/L) Date Value 09/17/2024 135 K (mmol/L) Date Value 09/17/2024 4.3 CALCIUM (mg/dL) Date Value 09/17/2024 8.4 (L) CL (mmol/L) Date Value 09/17/2024 103 BUN (mg/dL) Date Value 09/17/2024 18 CREATININE (mg/dL) Date Value 09/17/2024 0.84 GLUCOSE (mg/dL) Date Value 09/17/2024 118 (H) CO2 TOTAL (mmol/L) Date Value 09/17/2024 26 CBC:CBC WBC (10*3/?L) Date Value 09/17/2024 14.36 (H) RBC (10*6/?L) Date Value 09/17/2024 2.75 (L) PLT (10*3/?L) Date Value 09/17/2024 131 (L) HGB (g/dL) Date Value 09/17/2024 7.9 (L) HCT (%) Date Value 09/17/2024 25.0 (L) BMP:Hepatic Function Panel ALBUMIN (g/dL) Date Value 09/17/2024 3.1 (L) T PROTEIN (g/dL) Date Value 09/17/2024 7.9 TOTAL BILI (mg/dL) Date Value 09/17/2024 2.3 (H) ALTv (U/L) Date Value 09/17/2024 36 (H) AST(SGOT) (U/L) Date Value 09/17/2024 55 (H) ALK PHOS (U/L) Date Value 09/17/2024 107 Troponin: There are no current results on file for these tests and/or test for 1 year. I have reviewed all relevant labs Imaging: CT HEAD WO CONTRAST Result Date: 09/18/2024 EXAM: CT HEAD WO CONTRAST HISTORY: 64 years-old Female; Mental status change, unknown cause Memory loss . TECHNIQUE: Axial CT of the head was performed and reconstructed at 5 mm intervals. Coronal and sagittal reformatted images were generated. COMPARISON: None FINDINGS: The ventricles and sulci are prominent but within normal limits for the patient's age. No hydrocephalus, midline shift or pathological extra-axial fluid collection is present. The basal cisterns are unremarkable. No acute intracranial hemorrhage or significant mass effect is visualized. No parenchymal attenuation abnormality is seen. The jain-white matter differentiation is preserved. Nonspecific left lenticulostriate calcification. The mastoid air cells and paranasal air sinuses are clear. The calvarium and central skull base are unremarkable. No acute intracranial abnormality. Preliminary Report Dictated by Resident: Jossie Marmolejo MD CT ABDOMEN PELVIS W CONTRAST Result Date: 09/17/2024 EXAM: CT ABDOMEN PELVIS W CONTRAST HISTORY: 64 years-old Female; Abdominal distension TECHNIQUE: Contiguous axial imaging from the level of the lung bases through the iliac crests was performed with intravenous contrast. Coronal and sagittal reconstructions were obtained. COMPARISON: None FINDINGS: LOWER THORAX: The lung bases are clear. Sliding-type hiatal hernia with esophageal varices. LIVER: Cirrhosis with changes portal hypertension including splenomegaly, gastric and esophageal varices, and recanalization of umbilical vein. 2.4 cm hypodense peripherally calcified lesion in liver segment 7 remains indeterminate and may reflect prior infectious disease or liver mass with local treatment such as ablation or cryoablation. GALLBLADDER AND BILIARY TREE: Mild gallbladder wall thickening is likely due to underlying cirrhosis. No radiopaque gallstone. No intra or extrahepatic biliary ductal dilation. SPLEEN: The spleen is normal. PANCREAS: No ductal dilation or masses. ADRENAL GLANDS: No adrenal nodule.. KIDNEYS, URETERS, AND BLADDER: Normal renal size, morphology, and enhancement. No solid masses. No stones or hydronephrosis. The bladder is adequately distended and appears unremarkable. REPRODUCTIVE ORGANS: 3.6 cm uterine subserosal fibroid with calcification. Smaller calcified fibroid is also seen at the lower uterine segment. GI TRACT: No dilation or bowel wall thickening. The bowel loops are distended with fluid and stool. Normal appendix. PERITONEUM AND RETROPERITONEUM: No intra-abdominal free air or fluid collection. LYMPH NODES: No lymphadenopathy. VESSELS: The vessels appear unremarkable. BONES AND SOFT TISSUES: No suspicious osseous lesions. No fractures. No acute findings of abdomen. Cirrhosis with findings related to portal hypertension including splenomegaly and varices. No ascites. Bowel loops are distended with fluid and stool which likely contribute to the patient's symptoms. Liver segment 7 peripherally calcified mass may represent granuloma from prior infection or locally treated mass. Please correlate with patient's history. Preliminary Report Dictated by Resident: Jossie Marmolejo MD XR CHEST 1 VW Result Date: 09/17/2024 STUDY: SINGLE FRONTAL VIEW OF THE CHEST ORDERING PHYSICIAN: MACKENZIE VIEIRAVER DATE: 09/17/2024 6:15 PM REASON FOR EXAM: decompensated cirrhosis. HS:Y. TECHNIQUE: Frontal view of the chest COMPARISON: None available FINDINGS: The cardiomediastinal silhouette is normal. The lungs are clear. The remaining osseous and soft tissue structures are unremarkable. Normal chest. RL: [id number]. HS:Y. Assessment and plan: Principal Problem: Leg swelling Lower extremity swelling: Unclear heart failure versus cirrhosis - Follow-up cardiac echo - Started on Lasix 20 mg IV twice daily - Low-salt diet - Strict I's and O's History of cellulitis: Appears improved - Continue ceftriaxone and doxycycline Psychiatric disorder: Noted history of bipolar behavior is not consistent with this concern for possible schizophrenia -Jane now will start back on Zyprexa -Follow-up with case management in morning regarding goal of close once patient is stabilized. Patient is not suicidal or homicidal at this time History of cirrhosis: - Follow-up hep C panel/viral load - Continue on diuresis may require Aldactone will follow-up how she responds to Lasix alone Suspected history of hepatic encephalopathy: On lactulose noted ammonia on admission less than 9 - Continue lactulose Anemia: Noted history of GI bleed but no active bleeding now - Follow-up reticulocyte count and iron panel Hypertension: Poorly controlled - Start propranolol and Norvasc Goals of care: Discussed care with brother states he is her only family at this point as her has passed. States she has declined since his passing was looking for SNF on discharge discussed patient is on manage medicaid per chart unclear if that would be feasible we will follow-up what is available with social worker psychiatric in morning DVT prophylaxis: SCD (HX of GI bleed / Anemia) Advanced Care Planning ( Z71.89 ) Above assessment and plan discussed at length with patient, patient expressed full understanding. Questions and concerns addressed I spent 1 minutes discussing the advance care planning. Advanced Directive Maker: PT (Is not participating) Level of comfort: N/A Code Status: Default full code [place] SUBSTATION TECHNICIAN was verified Disposition: Admit, FU Echo, diuresis, FU social worker psychiatric in AM [facility] EM[facility]GENC[facility] PH[facility]IAN STAFF [facility] Procedure Notes Date/Time Note Provider Source 2024-09-20 10:50:30 [facility] An ultrasound guided, 20 ga. PIV was placed in the left forearm, in one attempt(s). Local anesthetic not used. Labs not obtained. Alexandre Real RN [facility]
[2024-10-28] MEDS ORDERED: NA CHLORIDE 0.9% 2,000 ML ONE (12:39)
[2024-10-28 13:15] LABS: Absolute Lymphocytes (CBC) 1.5 K/uL (0.7-4.9); Basophils % 0.6 % (0-1.3); Hematocrit 13.5 % (36.0-45.0); Lymphocytes % 20.5 % (15.3-44.8); MCH 29.4 pg (27.0-35.0); MCHC 32.1 g/dL (32.0-36.0); MCV 91.5 fL (80-100); MPV 9.1 fL (7.6-11.3); Monocytes % 13.4 % (3.3-12.3); Neutrophils % 65.5 % (41.7-73.7); Platelets 113 thou/uL (152-406); RBC Red Blood Cell Count 1.47 M/uL (3.86-4.86); Red Cell Distribution Width 18.4 % (12.1-15.2)
[2024-10-28 13:21] LABS: Hemoglobin 4.3 g/dL (12.0-15.0)
[2024-10-28] MEDS ORDERED: PANTOPRAZOLE 40 MG INJ ONE (13:31)
[2024-10-28] MEDS ORDERED: OCTREOTIDE ACETATE 100 MCG/ML ONE (13:31)
[2024-10-28 13:35] LABS: Albumin/Globulin Ratio 0.5 (1.1-1.8); Anion Gap 9.8 mEq/L (5.0-15.0); Bilirubin Total 0.9 mg/dL (0.2-1.0); Globulin 3.8 g/dL (2.3-3.5); Potassium 3.8 mEq/L (3.5-5.1); Protein, Total 5.8 g/dL (6.4-8.2)
[2024-10-28] MEDS ORDERED: PANTOPRAZOLE INJ 80 MG in NA CHLORIDE 0.9% 250 ML IV ONE (13:45)
--- NOTE | 2024-10-28 14:35 | RAD REPORT ---
EXAMINATION: ONE VIEW CHEST XR CLINICAL INDICATION: Female, 64 years old.,COUGH TECHNIQUE: Frontal chest projection is submitted. Examination is limited by patient positioning and t echnique. COMPARISON: 05/22/2024 FINDINGS: The lungs are again hypoinflated. Elevation of the left hemidiaphragm. Stable central interstitial pr ominence, with no new focal airspace opacity. No pneumothorax or sizable effusion. The heart is normal in size. Mediastinal contours are unremarkable. IMPRESSION: Stable central interstitial prominence, may relate to mild central congestion.
[2024-10-28 14:56] LABS: PT Prothrombin Time 14.9 SECONDS (9.4-12.5); PTT, Activated Partial Thromb 29.3 SECONDS (24.3-36.9); Protime INR 1.34
--- NOTE | 2024-10-28 15:43 | RAD REPORT ---
EXAM: CT Abdomen Angio, CT pelvis angio HISTORY: [facility] MAIN none LOWER GI BLEED Bed Name: 5 COMPARISON: CT abdomen and pelvis 09/10/2024 TECHNIQUE: Multiple contiguous axial images were obtained a CTA of the abdomen and pelvis with contra st per the GI bleeding protocol. Sagittal and coronal 3-D MIP reformats were performed. One or more of the following dose reduction techniques were used: Automated exposure control, adjustment of the m A and kV according to patient size, and iterative reconstruction. Unless otherwise specified, incidental findings do not require dedicated imaging follow-up. FINDINGS: LUNG BASES: No airspace opacities or effusion. Small hiatal hernia. Elevation of the left hemidiaphra gm. LIVER: Nodular contour suggesting cirrhosis. Marginally calcified right hepatic dome subcapsular 2.5 cm lesion, stable, could represent a complex cyst or sequelae of a hemangioma. Mildly prominent portal venous shunting extending along the distal recanalized umbilical vein KIDNEYS: Unremarkable. 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 Spleen is border line enlarged, measuring 12.8 cm in long axis.. PANCREAS: Unremarkable. BOWEL: Persistent wall prominence throughout segments of the colon, most notably along the hepatic fl exure and ascending colon, stable. Wall prominence of the proximal duodenum as well. Findings may relate to infectious or inflammatory enterocolitis versus portal enteropathy. No evidence of contrast extravasation throughout the bowel to suggest active GI bleeding. RETROPERITONEUM: No lymphadenopathy BONES: Degenerative changes in the spine. Mild to moderate free ascites. Numerous calcified uterine fibroids again seen. DESCENDING THORACIC AORTA: Normal caliber without evidence of dissection or aneurysmal dilatation. ABDOMINAL AORTA: Normal caliber without evidence of dissection or aneurysmal dilatation. Mild atheros clerotic calcifications. CELIAC TRUNK: Patent SMA: Patent GARRY: Patent RENAL ARTERIES: Bilateral single renal arteries without significant atherosclerotic disease IMPRESSION: Wall prominence of the colon along the splenic flexure and descending colon, fairly stable. Newly not ed wall prominence of the proximal duodenum as well. Findings may relate to infectious or inflammatory enterocolitis versus portal arthropathy. No findings to suggest active GI bleeding. Progressive free ascites, now mild to moderate. Other stable findings including findings of cirrhosis , as above.
--- NOTE | 2024-10-28 16:54 | EDPHYS ---
Physician Documentation [facility] Name: Leonila Chaudhry Age: 64 yrs Sex: Female : 1960 Arrival Date: 10/28/2024 Time: 11:46 Bed 5 Private MD: ED Physician Maryann Calvillo HPI: 10/28 13:29 This 64 yrs old Female presents to ER via EMS with complaints of Pain All Over.gb1 13:29 64-year-old female brought by EMS from home for upper and lower bright red blood GI gb1 bleeding at home today noticed by brother and the rest of the family. Patient's been more altered but she does have a history of bipolar disorder, cirrhosis of the liver, GERD, hepatitis C and hypertension. Patient is currently on Eliquis due to atrial fibrillation as well.. Historical: - Allergies: 11:55 LITHIUM DERIVITIVES; ll1 - PMHx: 11:55 Bipolar disorder; cirrhosis of liver; GERD; Hepatitis C; Hypertensive disorder; ll1 - PSHx: 11:55 section; ll1 - Immunization history:: Adult Immunizations up to date. - Infectious Disease History:: Denies. - Social history:: Smoking status: Patient denies any tobacco usage or history of. Exam: 13:29 Constitutional: This is a well developed, well nourished patient who is awake, alert, gb1 and in no acute distress. Head/Face: Normocephalic, atraumatic. Eyes: Pupils equal round and reactive to light, extra-ocular motions intact. Lids and lashes normal. Conjunctiva and sclera are non-icteric and not injected. Cornea within normal limits. Periorbital areas with no swelling, redness, or edema. Chest/axilla: Normal chest wall appearance and motion. Nontender with no deformity. No lesions are appreciated. Cardiovascular: Regular rate and rhythm with a normal S1 and S2. No gallops, murmurs, or rubs. Normal PMI, no JVD. No pulse deficits. Respiratory: Lungs have equal breath sounds bilaterally, clear to auscultation and percussion. No rales, rhonchi or wheezes noted. No increased work of breathing, no retractions or nasal flaring. Abdomen/GI: Soft, non-tender, with normal bowel sounds. No distension or tympany. No guarding or rebound. No evidence of tenderness throughout. Skin: Warm, dry with normal turgor, pale. No rashes, no lesions, and no evidence of cellulitis. Vital Signs: 11:55 BP 98 / 54; Pulse 88; Resp 18; Temp 97; Pulse Ox 100% on R/A; Weight 61.23 kg; Height 5 ll1 ft. 4 in. ; Pain 10/10; 13:44 BP 127 / 62; Pulse 88; Resp 18; Pulse Ox 100% on R/A; ll1 14:54 BP 129 / 62; Pulse 88; Pulse Ox 100% on R/A; ll1 15:40 BP 136 / 68; Pulse 89; Resp 17; Temp 96.9(TE); Pulse Ox 96% on R/A; ll1 17:30 BP 122 / 64; Pulse 93; Resp 17; Temp 96.6; Pulse Ox 96% on R/A; ll1 17:59 BP 130 / 63; Pulse 91; Resp 18; Temp 96.7; Pulse Ox 99% on R/A; Pain 0/10; ll1 11:55 Body Mass Index 23.17 (61.23 kg, 162.56 cm) ll1 11:55 Pain Scale: Adult ll1 17:59 Pain Scale: Adult ll1 MDM: 11:53 Medical Screening Exam initiated gb1 16:54 Data reviewed: vital signs, nurses notes, lab test result(s), CBC, electrolytes, gb1 radiologic studies, CT scan. ED course: 64-year-old female with chief complaint of hematemesis and hematochezia here with history of alcoholic cirrhosis with ascites. No active acute GI bleeding on the CT angiogram of the abdomen and pelvis, there is what seems to appear to be mild to moderate enterocolitis. Consider esophageal varices as well. I doubt ascending cholangitis at this time. Patient has received 1 of 3 units of packed red blood cells with a goal hemoglobin of 7. I discussed the case with Dr. Thorne the welder setter resistance machine on-call and since we do not have any medical ICU beds here at [facility] the patient was accepted at the [facility] ICU by Dr. Barillas at 1650. Patient's initial hemoglobin was 4.3. She has been on compliant with her chronic anticoagulation as well.. 10/28 13:22 Order name: Type And Screen ll1 10/28 12:28 Order name: Blood Culture Adult (2) gb1 10/28 12:28 Order name: CBC with Diff; Complete Time: 14:47 gb1 10/28 12:28 Order name: CMP; Complete Time: 14:47 gb1 10/28 12:28 Order name: Lactate w/ 2H reflex if indic.; Complete Time: 14:47 gb1 10/28 12:28 Order name: Protime (+inr); Complete Time: 15:46 gb1 10/28 12:28 Order name: Ptt, Activated; Complete Time: 15:46 gb1 10/28 12:29 Order name: [place]; Complete Time: 14:47 gb1 10/28 13:36 Order name: Ghost Lactate-NO COLLECT Timer; Complete Time: 15:46 EDMS 10/28 13:46 Order name: Packed RBC Leukored EDMS 10/28 16:18 Order name: Lactate Sepsis 2 HR Follow-up; Complete Time: 16:48 EDMS 10/28 12:28 Order name: Chest Single View XRAY; Complete Time: 14:47 gb1 10/28 13:07 Order name: CT Abdomen - Angio; Complete Time: 15:46 gb1 10/28 13:50 Order name: Pelvis Angio; Complete Time: 15:46 EDMS 10/28 12:28 Order name: Cardiac monitoring; Complete Time: 12:59 gb1 10/28 12:28 Order name: EKG - Nurse/Tech; Complete Time: 12:59 gb1 10/28 12:28 Order name: IV Saline Lock - Large Bore; Complete Time: 12:59 gb1 10/28 12:28 Order name: Labs collected and sent; Complete Time: 12:59 gb1 10/28 12:28 Order name: O2 Per Protocol; Complete Time: 12:32 gb1 10/28 12:28 Order name: O2 Sat Monitoring; Complete Time: 12:32 gb1 10/28 12:28 Order name: Vital Signs; Complete Time: 12:32 gb1 10/28 13:28 Order name: Consent for Blood Transfusion; Complete Time: 13:43 gb1 10/28 13:28 Order name: IV Saline Lock; Complete Time: 13:34 gb1 Administered Medications: 12:59 Drug: NS 0.9% IV (30 ml/kg) 30 ml/kg IV at bolus once; Sepsis Protocol; to be given as ll1 a bolus over 90 minutes Route: IV; Rate: bolus; Site: left forearm; 14:00 Follow up: Response: No adverse reaction; IV Status: Completed infusion; IV Intake: ll1 1900ml 13:30 Drug: Pantoprazole IVP 80 mg IVP once Route: IVP; Site: left antecubital; ll1 18:00 Follow up: Response: No adverse reaction 1 13:44 Drug: SandoSTATIN IV 100 mcg IV at bolus once Route: IV; Rate: bolus; Site: left ll1 antecubital; 18:00 Follow up: Response: No adverse reaction; IV Status: Completed infusion; IV Intake: 1ml ll1 14:01 Drug: Pantoprazole IV 8 mg/hr IV at 25 ml/hr continuous; (Standard dilution is 80 mg in ll1 250 mL NS) Route: IV; Rate: 25 ml/hr; Site: left antecubital; 18:00 Follow up: Response: No adverse reaction; IV Status: Infusion continued upon transfer; ll1 IV Intake: 100ml Disposition Summary: 10/28/24 16:53 Transfer Ordered Notes: Transfer Location: [place] [id number] Reason: Higher level of care gb1 Condition: Critical gb1 Problem: an acute exacerbation gb1 Symptoms: have worsened gb1 Accepting Physician: Dr. Barillas(10/28/24 18:01) ll1 Diagnosis - ACUTE BLOOD LOSS ANEMIA gb1 - Alcoholic cirrhosis of liver with ascites gb1 Forms: - Medication Reconciliation Form gb1 - SBAR form gb1 Critical care time excluding procedures: 16:54 Critical care time: Bedside Care: 100 minutes, Consultation: 45 minutes, Family gb1 Intervention: 45 minutes. Total time: 190 minutes Signatures: Dispatcher [employer] EDWilbert Field RN RN ll1 Maryann Calvillo MD MD gb1 Corrections: (The following items were deleted from the chart) 12: 12:28 BLOOD CULTURE*+BA.LAB.BRZ ordered. EDMS EDMS 12: 12:28 CBC+H.LAB.BRZ ordered. EDMS EDMS 12: 12:28 COMPREHENSIVE METABOLIC PANEL+C.LAB.BRZ ordered. EDMS EDMS 12: 12:28 LACTATE+C.LAB.BRZ ordered. EDMS EDMS 12:28 12:28 PROTIME (+INR)+COAG.LAB.BRZ ordered. EDMS EDMS 12:28 12:28 PTT, ACTIVATED+COAG.LAB.BRZ ordered. EDMS EDMS 12:28 12:28 Urinalysis+U.LAB.BRZ ordered. EDMS EDMS 12:29 12:29 Chest Single View+RAD.RAD.BRZ ordered. EDMS EDMS 12:59 12:28 Accucheck ordered. gb1 ll1 13:22 13:22 TYPE AND SCREEN+BB.LAB.BRZ ordered. EDMS EDMS 13:42 13:28 PACKED RBC LEUKORED+BB.LAB.BRZ ordered. EDMS EDMS 13:42 13:31 ABO/RH typing ordered. EDMS EDMS 13:42 13:31 Antibody Screen ordered. EDMS EDMS 18:01 16:53 Dr. Barillas gb1 ll1
--- NOTE | 2024-10-28 16:54 | ER ---
Nurse's Notes [facility] Name: Leonila Chaudhry Age: 64 yrs Sex: Female : 1960 Arrival Date: 10/28/2024 Time: 11:46 Bed 5 Private MD: Diagnosis: ACUTE BLOOD LOSS ANEMIA;Alcoholic cirrhosis of liver with ascites Presentation: 10/28 11:55 Chief complaint: Patient states: N/V with blood in vomit and stool 3 days ago. EMS ll1 states: BP 97/58, HR 86, 16 resp., 99% RA. Coronavirus screen: Client denies travel out of the [place] in the last 14 days. diarrhea, fatigue, muscle pain, nausea, vomiting. Client presents with at least one sign or symptom that may indicate coronavirus-19. Standard/surgical mask placed on the client. Ebola Screen: Patient denies travel to an Ebola-affected area in the 21 days before illness onset. Initial Sepsis Screen: Does the patient meet any 2 criteria? No. Patient's initial sepsis screen is negative. Does the patient have a suspected source of infection? No. Patient's initial sepsis screen is negative. Risk Assessment: Do you want to hurt yourself or someone else? Patient reports no desire to harm self or others. Onset of symptoms was October 26, 2024. 11:55 Method Of Arrival: EMS: [facility] 1 11:55 Acuity: ADAM 3 ll1 Triage Assessment: 11:57 General: Appears uncomfortable, Behavior is calm, cooperative, appropriate for age. ll1 Pain: Complains of pain in R abdomen Quality of pain is described as aching, crampy. Neuro: Reports weakness. GI: Reports lower abdominal pain, upper abdominal pain, cramping, rectal bleeding, bloody stool, nausea, vomiting, blood in vomit 3 days ago. Historical: - Allergies: 11:55 LITHIUM DERIVITIVES; ll1 - PMHx: 11:55 Bipolar disorder; cirrhosis of liver; GERD; Hepatitis C; Hypertensive disorder; ll1 - PSHx: 11:55 section; ll1 - Immunization history:: Adult Immunizations up to date. - Infectious Disease History:: Denies. - Social history:: Smoking status: Patient denies any tobacco usage or history of. Screenin:03 [facility] ED Fall Risk Assessment (Adult) History of falling in the last 3 months, ll1 including since admission No falls in past 3 months (0 pts) Confusion or Disorientation Yes (5 pts) Intoxicated or Sedated No (0 pts) Impaired Gait Yes (1 pt) Mobility Assist Device Used Yes (1 pt) Altered Elimination No (0 pt) Score/Fall Risk Level 0 - 2 = Low Risk Maintained a safe environment, Hourly rounding (assess needs \T\ fall precautionary measures) done. Abuse screen: Denies threats or abuse. Nutritional screening: No deficits noted. Tuberculosis screening: No symptoms or risk factors identified. Assessment: 13:03 Reassessment: No changes from previously documented assessment. Patient and/or family ll1 updated on plan of care and expected duration. Pain level reassessed. Patient is alert, oriented x 3, equal unlabored respirations, skin warm/dry/pink. 14:25 Reassessment: No changes from previously documented assessment. Patient and/or family ll1 updated on plan of care and expected duration. Pain level reassessed. Patient is alert, oriented x 3, equal unlabored respirations, skin warm/dry/pink. 14:55 Reassessment: No changes from previously documented assessment. Patient and/or family ll1 updated on plan of care and expected duration. Pain level reassessed. Patient is alert, oriented x 3, equal unlabored respirations, skin warm/dry/pink. 15:10 Reassessment: No changes from previously documented assessment. 1st unit of blood ll1 started per protocol. See transfusion record for further details. 16:20 Reassessment: No changes from previously documented assessment. Patient and/or family ll1 updated on plan of care and expected duration. Pain level reassessed. 17:30 Reassessment: No changes from previously documented assessment. 2nd unit of blood ll1 started per protocol. Vital Signs: 11:55 BP 98 / 54; Pulse 88; Resp 18; Temp 97; Pulse Ox 100% on R/A; Weight 61.23 kg; Height 5 ll1 ft. 4 in. ; Pain 10/10; 13:44 BP 127 / 62; Pulse 88; Resp 18; Pulse Ox 100% on R/A; ll1 14:54 BP 129 / 62; Pulse 88; Pulse Ox 100% on R/A; ll1 15:40 BP 136 / 68; Pulse 89; Resp 17; Temp 96.9(TE); Pulse Ox 96% on R/A; ll1 17:30 BP 122 / 64; Pulse 93; Resp 17; Temp 96.6; Pulse Ox 96% on R/A; ll1 17:59 BP 130 / 63; Pulse 91; Resp 18; Temp 96.7; Pulse Ox 99% on R/A; Pain 0/10; ll1 11:55 Body Mass Index 23.17 (61.23 kg, 162.56 cm) ll1 11:55 Pain Scale: Adult ll1 17:59 Pain Scale: Adult 1 ED Course: 11:51 Patient arrived in ED. jl7 11:52 Maryann Calvillo MD is Attending Physician. gb1 11:53 Wilbert Salomon, MALI is Primary Nurse. ll1 11:55 Arm band placed on Patient placed in an exam room, on a stretcher. ll1 11:57 Triage completed. ll1 12:16 Missed attempt(s): 22 gauge in left in right antecubital area. Bleeding controlled, ll1 band aid applied, catheter tip intact. 13:02 Initial lab(s) drawn, by ED staff, sent to lab. EKG done. ll1 13:03 Patient has correct armband on for positive identification. Bed in low position. ll1 Provided Education on: ER procedures and process. Client placed on continuous cardiac and pulse oximetry monitoring. NIBP monitoring applied. 13:03 Inserted saline lock: 20 gauge in left forearm, using aseptic technique. ,using aseptic hb technique. US GUIDED Blood collected. Flushed with 10 mL NS. 13:09 Chest Single View XRAY In Process Unspecified. EDMS 13:21 Notified ED physician of a critical lab result(s). HGB 4.3. ll1 13:27 Type And Screen Sent. ll1 13:55 CT Abdomen - Angio In Process Unspecified. EDMS 13:55 Pelvis Angio In Process Unspecified. EDMS 16:20 No provider procedures requiring assistance completed. pure wick to suction. Patient ll1 admitted, IV remains in place. 16:38 initiated transfer to [facility]. bd 17:45 pt accepted in transfer to [facility] [id number] by dr Barillas, admin approval given by ryan singh pt will be transported by ems. Administered Medications: 12:59 Drug: NS 0.9% IV (30 ml/kg) 30 ml/kg IV at bolus once; Sepsis Protocol; to be given as ll1 a bolus over 90 minutes Route: IV; Rate: bolus; Site: left forearm; 14:00 Follow up: Response: No adverse reaction; IV Status: Completed infusion; IV Intake: ll1 1900ml 13:30 Drug: Pantoprazole IVP 80 mg IVP once Route: IVP; Site: left antecubital; ll1 18:00 Follow up: Response: No adverse reaction ll1 13:44 Drug: SandoSTATIN IV 100 mcg IV at bolus once Route: IV; Rate: bolus; Site: left ll1 antecubital; 18:00 Follow up: Response: No adverse reaction; IV Status: Completed infusion; IV Intake: 1ml ll1 14:01 Drug: Pantoprazole IV 8 mg/hr IV at 25 ml/hr continuous; (Standard dilution is 80 mg in ll1 250 mL NS) Route: IV; Rate: 25 ml/hr; Site: left antecubital; 18:00 Follow up: Response: No adverse reaction; IV Status: Infusion continued upon transfer; ll1 IV Intake: 100ml Medication: 13:03 VIS not applicable for this client. ll1 Intake: 14:00 IV: 1900ml; Total: 1900ml. ll1 18:00 IV: 1ml; Total: 1901ml. ll1 18:00 IV: 100ml; Total: 2001ml. ll1 Outcome: 16:21 Condition: stable ll1 16:21 Instructed on the need for transfer, 16:53 ER care complete, transfer ordered by . gb1 17:15 Transferred by ground EMS to [facility], Transfer form completed. ll1 Note: report called MALI Tejeda at [facility] 18:01 Patient left the ED. ll1 Signatures: Dispatcher [employer] EDMS Erlinda Thompson Heather, RN RN hb Leal, Jahala, RN RN jl7 Wilbert Salomon RN RN ll1 Maryann Calvillo MD MD gb1 Corrections: (The following items were deleted from the chart) 15:57 15:03 Reassessment: No changes from previously documented assessment. 1st unit of blood ll1 started per protocol. See transfusion record for further details. ll1 17:16 16:21 Instructed on the need for admit, [place] [id number]
[2024-10-28 23:00] VITALS: BP 130/63; TEMP 96.7; O2SAT 99
--- NOTE | 2024-11-01 16:02 | EKG ---
Test Date: 2024-10-28 Test Time: 12:55:12 Plastic Joint Maker: DESTINY MEASUREMENT RESULTS: Intervals: Rate: 91 VA: QRSD: 84 QT: 376 QTc: 462 [place]: P: VA: QRS: 66 T: 58 INTERPRETIVE STATEMENTS: NORMAL SINUS RHYTHM Nonspecific T wave abnormality Abnormal ECG Compared to ECG 09/10/2024 17:05:19 Accelerated junctional rhythm now present T-wave abnormality now present Sinus rhythm no longer present Electronically Signed On 11-01-24 15:54:11 CRIMINAL ATTORNEY by Beka Hatch
== END 2024-10-28 18:01 | disposition short-term general hospital (02) ==
LOC: ER 11:46
PROC: 30233N1 Transfusion of Nonautologous Red Blood Cells into Peripheral Vein, Percutaneous Approach (ICD-10-PCS; principal; 2024-10-28)
DX: D62 Acute posthemorrhagic anemia (principal); K70.31 Alcoholic cirrhosis of liver with ascites; I10 Essential (primary) hypertension; I48.91 Unspecified atrial fibrillation; Z79.01 Long term (current) use of anticoagulants
CPT/HCPCS: 93005; 87040 ×2; 85025; 36415; 86900; 86850; 85610; 80178; 86901; 83605 ×2; 85730; 86920 ×3; 80053; 72191; 74175; 71045; 99285; 36430; Q9967; J2354; J2470 ×2; P9016 ×2; J7050; J7030

== ENCOUNTER 2024-11-13 06:42 | Emergency (ER) | payer OTHER ==
[2024-11-13] MEDS ORDERED: PANTOPRAZOLE 40 MG INJ ONE (07:47)
[2024-11-13] MEDS ORDERED: LACTULOSE 20 GM/30 ML UCUP ONE (07:48)
[2024-11-13] MEDS ORDERED: ACETAMINOPHEN 500 MG TAB ONE (07:48)
[2024-11-13] MEDS ORDERED: DIPHENHYDRAMINE 25 MG TAB/CAP ONE (07:48)
[2024-11-13] MEDS ORDERED: PANTOPRAZOLE INJ 80 MG in NA CHLORIDE 0.9% 250 ML IV SCH (08:00)
[2024-11-13] MEDS ORDERED: DIPHENHYDRAMINE 25 MG TAB/CAP PO SCH (08:30)
[2024-11-13] MEDS ORDERED: ACETAMINOPHEN 500 MG TAB PO SCH (08:30)
[2024-11-13] MEDS ORDERED: PANTOPRAZOLE 40 MG INJ IVP SCH (08:30)
[2024-11-13] MEDS ORDERED: LACTULOSE 20 GM/30 ML UCUP PO SCH (08:30)
--- NOTE | 2024-11-13 08:46 | RAD REPORT ---
EXAM: CT CHEST, ABDOMEN AND PELVIS WITHOUT CONTRAST CLINICAL INDICATION: Female, 64 years old. [facility] MAIN ABDOMINAL DISTENTION Bed Name: 18 TECHNIQUE: CT chest, abdomen and pelvis was performed, without IV contrast, as per department protoco l. Axial, sagittal and coronal reconstructions were obtained. One or more of the following dose reduction techniques were used: Automated exposure control, adjustment of the mA and/or kV according to the patient size, and/or iterative reconstruction. Unless otherwise specified, incidental findings do not require dedicated imaging follow-up. COMPARISON: 10/05/2023 and 10/28/2024 FINDINGS: The lack of intravenous contrast limits the sensitivity of this exam for evaluation of solid visceral organs, vascular structures, and retroperitoneum. Chest: LOWER NECK/CHEST WALL: Visualized thyroid gland and soft tissues are normal. LUNGS AND AIRWAYS: Airways are clear. No evidence of airspace or interstitial process apart from depe ndent subsegmental atelectatic changes more on the left. No nodules. Elevation of the left hemidiaphragm. PLEURA: Small left pleural effusion. No pneumothorax. Hemidiaphragms are normally positioned. MEDIASTINUM AND LYMPH NODES: No mediastinal mass or fluid collection. Normal size mediastinal, hilar, and axillary lymph nodes. THORACIC AORTA: Normal caliber and configuration. PULMONARY ARTERIES: Normal caliber. HEART: Unremarkable. Abdomen/Pelvis LIVER: Nodular contour again seen with relative caudate lobe hypertrophy. Progressive marginal calcif ications along an ill-defined 2.4 cm lesion at the hepatic dome, not well characterized. No other suspicious focal lesions.. GALLBLADDER/BILE DUCTS: No biliary ductal dilatation. PANCREAS: No mass, ductal dilation, or sruthi-pancreatic fluid. SPLEEN: Stable size, near upper limit of normal, 12.9 cm. No focal lesion. 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 ADRENALS: Normal; no mass. KIDNEYS AND URETERS: Normal size and contour. No hydronephrosis. GASTROINTESTINAL TRACT: Stomach is non-dilated. Small bowel has normal course and caliber. No colonic wall thickening or pericolonic inflammatory changes. PERITONEUM: No free air. Moderate free ascites.. LYMPH NODES: Small retroperitoneal and epigastric lymph nodes not exceeding 1 cm in short axis are st able. ABDOMINAL AORTA AND OTHER VESSELS: Normal caliber aorta and IVC. URINARY BLADDER: Normal contour. REPRODUCTIVE ORGANS: Calcified fibroids largest along the anterior wall on the right measuring 3.6 cm , stable. MUSCULOSKELETAL: No acute or suspicious osseous abnormality. Few healing right lower rib fractures, s table. ADDITIONAL FINDINGS: Diffuse body wall edema, progressive since the prior exam. IMPRESSION: Progressive body wall edema, with stable moderate ascites. Please correlate clinically for volume ove rload. Small left pleural effusion, also progressive since prior exam. Stable stigmata of liver cirrhosis, with spleen at the upper limit of normal in size. Stable marginal ly calcified 2.4 cm right hepatic dome lesion, could represent a hemangioma, not well characterized. Other stable findings as above.
[2024-11-13 08:55] LABS: Absolute Basophils 0.1 K/uL (0-0.5); Absolute Lymphocytes (CBC) 1.8 K/uL (0.7-4.9); Absolute Neutrophil 3.4 K/uL (1.8-8.0); Eosinophils % 0.1 % (0-4.4); Hematocrit 24.7 % (36.0-45.0); Hemoglobin 7.5 g/dL (12.0-15.0); Lymphocytes % 28.3 % (15.3-44.8); MCH 28.7 pg (27.0-35.0); MCHC 30.4 g/dL (32.0-36.0); MCV 94.4 fL (80-100); MPV 9.4 fL (7.6-11.3); Monocytes % 16.5 % (3.3-12.3); Neutrophils % 54.1 % (41.7-73.7); Nucleated Red Blood Cells % 0.1 % (0-0); Platelets 86 thou/uL (152-406); RBC Red Blood Cell Count 2.61 M/uL (3.86-4.86); Red Cell Distribution Width 18.8 % (12.1-15.2)
[2024-11-13 09:07] LABS: Albumin/Globulin Ratio 0.4 (1.1-1.8); Anion Gap 8.5 mEq/L (5.0-15.0); Bilirubin Direct 0.6 mg/dL (0-0.2); Bilirubin Indirect, Calculated 0.3 mg/dL (0.2-0.8); Bilirubin Total 0.9 mg/dL (0.2-1.0); Globulin 4.5 g/dL (2.3-3.5); Potassium 5.5 mEq/L (3.5-5.1); Protein, Total 6.5 g/dL (6.4-8.2); Troponin High Sensitivity 6.8 pg/mL (<58.9)
--- NOTE | 2024-11-13 10:33 | ER ---
Nurse's Notes [facility] Name: Leonila Chaudhry Age: 64 yrs Sex: Female : 1960 Arrival Date: 11/13/2024 Time: 06:42 Bed 18 Private MD: Diagnosis: Anemia, unspecified;Elevated Ammonia level;Unspecified cirrhosis of liver Presentation: 11/13 06:52 Chief complaint: EMS states: LOW HEMOGLOBIN. Coronavirus screen: Client denies travel kj2 out of the [place] in the last 14 days. Ebola Screen: No symptoms or risks identified at this time. Initial Sepsis Screen: Does the patient meet any 2 criteria? No. Patient's initial sepsis screen is negative. Does the patient have a suspected source of infection? No. Patient's initial sepsis screen is negative. Risk Assessment: Do you want to hurt yourself or someone else? Patient reports no desire to harm self or others. Onset of symptoms was November 13, 2024. 06:52 Method Of Arrival: EMS: [facility] kj2 06:52 Acuity: ADAM 3 kj2 Triage Assessment: 06:57 General: Appears in no apparent distress. Behavior is calm, cooperative. Pain: Denies kj2 pain. Historical: - Allergies: 06:55 LITHIUM DERIVITIVES; kj2 - Home Meds: 06:55 Amlodipine [Active]; kj2 - PMHx: 06:55 Bipolar disorder; cirrhosis of liver; GERD; Hepatitis C; Hypertensive disorder; kj2 - PSHx: 06:55 section; kj2 - Immunization history:: Adult Immunizations unknown. - Infectious Disease History:: Denies. - Social history:: Smoking status: Patient denies any tobacco usage or history of. - Family history:: not pertinent. Screenin:59 [facility] ED Fall Risk Assessment (Adult) History of falling in the last 3 months, kj2 including since admission No falls in past 3 months (0 pts) Confusion or Disorientation No (0 pts) Intoxicated or Sedated No (0 pts) Impaired Gait Yes (1 pt) Mobility Assist Device Used No (0 pt) Altered Elimination No (0 pt) Score/Fall Risk Level 0 - 2 = Low Risk Maintained a safe environment, Hourly rounding (assess needs \T\ fall precautionary measures) done. Abuse screen: Denies threats or abuse. Denies injuries from another. Nutritional screening: No deficits noted. Tuberculosis screening: No symptoms or risk factors identified. Assessment: 06:57 General: SEE TRIAGE. kj2 07:53 Reassessment: Patient appears in no apparent distress at this time. Patient and/or db family updated on plan of care and expected duration. Pain level reassessed. Patient is alert, oriented x 3, equal unlabored respirations, skin warm/dry/pink. General: Appears in no apparent distress. comfortable. Pain: Denies pain. Neuro: Level of Consciousness is awake, alert, obeys commands, Oriented to person, place, time, situation, Speech is normal. Respiratory: Airway is patent Respiratory effort is even, unlabored, Respiratory pattern is regular, symmetrical. 07:59 Reassessment: CALLED PHLEBOTOMY FOR RECOLLECT LABS DUE TO DIFFICULTY OBTAINING INITIAL db LABS. 07:59 Reassessment: PT PROVIDED SNACK. db 08:13 Reassessment: PHLEBOTOMY AT PATIENT BEDSIDE. db 08:40 Reassessment: NOTIFIED DR. BOUDREAUX LAB HAVING DIFFICULTY OBTAINING ALL LABS. db 08:53 Reassessment: Patient appears in no apparent distress at this time. Patient and/or db family updated on plan of care and expected duration. Pain level reassessed. Patient is alert, oriented x 3, equal unlabored respirations, skin warm/dry/pink. 09:06 Reassessment: CALLED [facility]. REPORT GIVEN TO KAMILAH. ASKED IF ANY db OTHER CONCERNS NOTIFIED PATIENT HEMOGLOBIN IS NOW BETTER. 10:04 Reassessment: Patient appears in no apparent distress at this time. Patient and/or db family updated on plan of care and expected duration. Pain level reassessed. Patient is alert, oriented x 3, equal unlabored respirations, skin warm/dry/pink. PT RECOLLECT LAB SENT TO LAB. 11:00 Reassessment: Patient appears in no apparent distress at this time. Patient and/or db family updated on plan of care and expected duration. Pain level reassessed. Patient is alert, oriented x 3, equal unlabored respirations, skin warm/dry/pink. REPORT CALLED TO [place] AT [facility]. [facility] WILL SET UP PATIENT TRANSPORT WITH [facility]. 11:23 Reassessment: PATIENT ASSISTED TO BEDPAN. db 11:40 Reassessment: Patient appears in no apparent distress at this time. PT ASSISTED UP IN db THE BED X 2 NURSING STAFF MEMBERS. 12:24 Reassessment: Patient appears in no apparent distress at this time. Patient and/or db family updated on plan of care and expected duration. Pain level reassessed. Patient is alert, oriented x 3, equal unlabored respirations, skin warm/dry/pink. [facility] ARRIVED FOR PATIENT TRANSPORT. REPORT HANDOFF GIVEN. Vital Signs: 06:52 BP 115 / 54; Pulse 75; Resp 18; Temp 98.1; Pulse Ox 97% on R/A; Weight 90.72 kg; Height kj2 5 ft. 4 in. ; 07:30 BP 117 / 63; Pulse 77; Resp 16; Pulse Ox 100% ; db 08:24 BP 111 / 57; Pulse 73; Resp 16; Pulse Ox 100% ; db 11:00 BP 101 / 51; Pulse 70; Resp 16; Pulse Ox 100% on R/A; db 12:24 BP 108 / 68; Pulse 76; Resp 16; Pulse Ox 100% on R/A; db 06:52 Body Mass Index 34.33 (90.72 kg, 162.56 cm) kj2 Selma Coma Score: 07:05 Eye Response: spontaneous(4). Motor Response: obeys commands(6). Verbal Response: sp4 oriented(5). Total: 15. ED Course: 06:43 Patient arrived in ED. jj6 06:47 Livier Fish, RN is Primary Nurse. kj2 06:50 Steffen Dale MD is Attending Physician. sp4 06:55 Triage completed. kj2 07:00 Patient has correct armband on for positive identification. Bed in low position. Call kj2 light in reach. Side rails up X2. Provided Education on: CALL LIGHT. 07:00 Arm band placed on Patient placed in an exam room, on a stretcher. kj2 07:02 Served as a healthcare manager during rectal exam. db 07:18 Attending Physician role handed off by Steffen Dale MD ms3 07:18 Hoang Boudreaux DO is Attending Physician. ms3 07:22 Missed attempt(s): 22 gauge in right antecubital area. Bleeding controlled, band aid db applied, catheter tip intact. 07:41 Initial lab(s) drawn, by me, sent to lab. Inserted saline lock: 22 gauge in right hand, db using aseptic technique. Blood collected. Flushed with 10 mL NS. 07:[address] via stretcher. db 07:53 CT Chest Abdomen Pelvis W/O Contrast In Process Unspecified. EDMS 07:[address] moved [address] from [address]. db 08:24 Missed attempt(s): 22 gauge in left antecubital area. Bleeding controlled, band aid db applied, catheter tip intact. 08:33 Missed attempt(s): 22 gauge in left hand. Bleeding controlled, band aid applied, db catheter tip intact. 08:49 Missed attempt(s): 20 gauge in right antecubital area. BY DR. BOUDREAUX. Bleeding db controlled, band aid applied, catheter tip intact. 09:29 Repeat lab(s) drawn. by me, sent to lab. db 10:02 Lab(s) recollected, by ED staff, sent to lab. db 10:15 EKG done. db 11:23 IV discontinued, intact, bleeding controlled, No redness/swelling at site. db 12:15 [facility] called regarding patient transport, ETA \[id number]. ty 12:24 Client placed on continuous cardiac and pulse oximetry monitoring. NIBP monitoring db applied. personnel monitor on. Pulse ox on. NIBP on. Warm blanket given. Pillow given. Administered Medications: 09:04 Discontinued: pantoprazole8 mg/hr IV at 25 ml/hr continuous; (Standard dilution is 80 db mg in 250 mL NS) 08:00 Not Given (Physician Discretion): [id number] mg PO once db 08:01 Drug: diphenhydrAMINE PO 25 mg PO once Route: PO; db 11:41 Follow up: Response: No adverse reaction db 08:03 Drug: Lactulose PO 20 grams 30 ml PO once Volume: 30 ml; Route: PO; db 11:41 Follow up: Response: No adverse reaction db 08:05 Drug: Pantoprazole IVP 80 mg IVP once Route: IVP; Site: right hand; db 11:41 Follow up: Response: No adverse reaction db 08:18 Drug: Pantoprazole IV 8 mg/hr IV at 25 ml/hr continuous; (Standard dilution is 80 mg in db 250 mL NS) Route: IV; Rate: 25 ml/hr; Site: right hand; 09:00 Follow up: Response: No adverse reaction; IV Status: Order to discontinue infusion db Medication: 07:00 VIS not applicable for this client. kj2 Outcome: 10:33 Discharge ordered by . ms3 12:24 Discharged to long term. Report called to [place]. TAKEN BY EMS [facility] db 12:24 Condition: stable 12:24 Discharge instructions given to patient, long term, Instructed on discharge instructions, follow up and referral plans. 12:27 Patient left the ED. db Signatures: Dispatcher [employer] EDMS Hoang Boudreaux DO DO ms3 Lynne Ninoj6 Anais Gutierrez, RN RN db Steffen Dale MD MD sp4 Warner De La Torre Krystal, RN RN kj2 Corrections: (The following items were deleted from the chart) 10:04 07:30 BP 117 / 63; Pulse 77bpm; Resp 16bpm; Pulse Ox 100% RA; db db
--- NOTE | 2024-11-13 10:34 | EDPHYS ---
Physician Documentation [facility] Name: Leonila Chaudhry Age: 64 yrs Sex: Female : 1960 Arrival Date: 11/13/2024 Time: 06:42 Bed 18 Private MD: ED Physician Hoang Landers HPI: 11/13 06:50 This 64 yrs old Female presents to ER via Unassigned with complaints of sp4 Abnormal Lab Results. 06:50 Patient brought in from alf with low hemoglobin.. sp4 07:05 64-year-old female with history of bipolar disorder, liver cirrhosis, GERD, hepatitis sp4 C, hypertension presents from alf with hemoglobin of 6.2 and elevated ammonia level of 160. Patient on presentation is fully lucid. Denied bloody stools, denied hematemesis.. Historical: - Allergies: 06:55 LITHIUM DERIVITIVES; kj2 - Home Meds: 06:55 Amlodipine [Active]; kj2 - PMHx: 06:55 Bipolar disorder; cirrhosis of liver; GERD; Hepatitis C; Hypertensive disorder; kj2 - PSHx: 06:55 section; kj2 - Immunization history:: Adult Immunizations unknown. - Infectious Disease History:: Denies. - Social history:: Smoking status: Patient denies any tobacco usage or history of. - Family history:: not pertinent. ROS: 07:05 Constitutional: Negative for fever, chills, and weight loss, positive for generalized sp4 weakness, positive for pallor, positive for low hemoglobin 07:05 All other systems are negative, Exam: 07:05 Constitutional: This is a well developed, well nourished patient who is awake, alert, sp4 and in no acute distress. Pale appearing and jaundiced Head/Face: Normocephalic, atraumatic. Eyes: Pupils equal round and reactive to light, extra-ocular motions intact. Lids and lashes normal. Conjunctiva and sclera are not injected. Cornea within normal limits. Periorbital areas with no swelling, redness, or edema. ENT: Nares patent. No nasal discharge, no septal abnormalities noted. Tympanic membranes are normal and external auditory canals are clear. Oropharynx with no redness, swelling, or masses, exudates, or evidence of obstruction, uvula midline. Mucous membranes moist. Neck: Trachea midline, no thyromegaly or masses palpated, and no cervical lymphadenopathy. Supple, full range of motion without nuchal rigidity, or vertebral point tenderness. Chest/axilla: Normal chest wall appearance and motion. Nontender with no deformity. No lesions are appreciated. Cardiovascular: Regular rate and rhythm with a normal S1 and S2. No gallops, murmurs, or rubs. Normal PMI, no JVD. No pulse deficits. Respiratory: Lungs have equal breath sounds bilaterally, clear to auscultation and percussion. No rales, rhonchi or wheezes noted. No increased work of breathing, no retractions or nasal flaring. Abdomen/GI: Soft, with normal bowel sounds. No distension or tympany. No guarding or rebound. No evidence of tenderness throughout. Digital rectal exam in the presence of nurse dowel maker this reveals no bleeding, no melena, no mass, no fissure, no fistula, no signs of upper or lower GI bleed. Back: No spinal tenderness. No costovertebral tenderness. Skin: Warm, dry with normal turgor. Normal color with no rashes, no lesions, and no evidence of cellulitis. MS/ Extremity: Pulses equal, no cyanosis. Neurovascular intact. Full, normal range of motion. Neuro: Awake and alert, GCS 15, oriented to person, place, time, and situation. Cranial nerves II-XII grossly intact. Motor strength 5/5 in all extremities. Sensory grossly intact. Psych: Awake, alert, with orientation to person, place and time. Behavior, mood, and affect are within normal limits 10:39 ECG was reviewed by the Attending Physician. ms3 Vital Signs: 06:52 BP 115 / 54; Pulse 75; Resp 18; Temp 98.1; Pulse Ox 97% on R/A; Weight 90.72 kg; Height kj2 5 ft. 4 in. ; 07:30 BP 117 / 63; Pulse 77; Resp 16; Pulse Ox 100% ; db 08:24 BP 111 / 57; Pulse 73; Resp 16; Pulse Ox 100% ; db 11:00 BP 101 / 51; Pulse 70; Resp 16; Pulse Ox 100% on R/A; db 12:24 BP 108 / 68; Pulse 76; Resp 16; Pulse Ox 100% on R/A; db 06:52 Body Mass Index 34.33 (90.72 kg, 162.56 cm) kj2 Smith Coma Score: 07:05 Eye Response: spontaneous(4). Motor Response: obeys commands(6). Verbal Response: sp4 oriented(5). Total: 15. MDM: 07:05 Medical Screening Exam initiated sp4 07:07 Differential Diagnosis altered mental status, sepsis, flu, Anemia of chronic disease, sp4 acute blood loss anemia.. Data reviewed: vital signs, nurses notes, EMS record, old medical records, lab test result(s), radiologic studies, CT scan. Consideration of Admission/Observation Escalation of care including admission/observation considered. Transition of care: After a detail discussion of the patient's case, care is transferred to Hoang Landers DO. 07:18 Transition of care: Care assumed from Steffen Dale MD. ED course: 64 yo female from [address] for anemia. Hgb 6.3, PRBCs ordered. Rectal exam performed by Dr Dale did not reveal bleeding. Patient pending labs and CT chest/Abdomen/Pelvis.. 10:34 I considered the following discharge prescriptions or medication management in the [facility] emergency department Medications were administered in the Emergency Department. See MAR. Independent interpretation of the following test(s) in the Emergency Department EKG: See my EKG interpretation above. Counseling: I had a detailed discussion with the patient and/or guardian regarding the historical points, exam findings, and any diagnostic results supporting the discharge/admit diagnosis, lab results, radiology results, the need for outpatient follow up, to return to the emergency department if symptoms worsen or persist or if there are any questions or concerns that arise at home. ED course: Patient's ammonia level 164 on November 11, hemoglobin level 6.3 on November 11. Patient's hemoglobin 7.5 today, ammonia level 76. Patient is alert and oriented x 4, in no apparent distress, nontoxic-appearing, speaking full sentences. Patient wishes to be discharged back to her nursing facility. Patient denies hematemesis, dark-colored stools, bloody stools. Patient remains hemodynamically stable. Discussed with patient necessity to follow-up with primary care physician in 2 to 3 days. Patient understands and agrees with plan. All questions were answered. Return precautions discussed include hematemesis, black stools, bloody stools, shortness of breath, worsening symptoms, or any other concerns.. 11/13 06:51 Order name: Basic Metabolic Panel; Complete Time: 09:12 sp4 11/13 06:51 Order name: CBC with Diff; Complete Time: 08:57 sp4 11/13 06:51 Order name: LFT's; Complete Time: 09:12 sp4 11/13 06:51 Order name: Troponin HS; Complete Time: 09:12 sp4 11/13 06:57 Order name: AMMONIA; Complete Time: 09:12 sp4 11/13 09:15 Order name: Potassium; Complete Time: 10:29 ms3 11/13 06:57 Order name: CT Chest Abdomen Pelvis W/O Contrast; Complete Time: 08:57 sp4 11/13 06:51 Order name: Cardiac monitoring; Complete Time: 10:05 sp4 11/13 06:51 Order name: EKG - Nurse/Tech; Complete Time: 10:33 sp4 11/13 06:51 Order name: IV Saline Lock; Complete Time: 10:05 sp4 11/13 06:51 Order name: Labs collected and sent; Complete Time: 10:05 sp4 11/13 06:51 Order name: O2 Per Protocol; Complete Time: 10:05 sp4 11/13 06:51 Order name: O2 Sat Monitoring; Complete Time: 10:05 sp4 11/13 07:58 Order name: Misc. Order: recollect all labs; Complete Time: 09:44 ty 11/13 09:45 Order name: Misc. Order: green top - recollect; Complete Time: 10:02 ty EC:39 Rate is 72 beats/min. Rhythm is regular. QRS [place] is Normal. [place] interval is normal. QT ms3 interval is normal. Clinical impression: Normal ECG. No change from previous ECG on October 28, 2024. Interpreted by me. Reviewed by me. Administered Medications: 09:04 Discontinued: pantoprazole8 mg/hr IV at 25 ml/hr continuous; (Standard dilution is 80 db mg in 250 mL NS) 08:00 Not Given (Physician Discretion): [id number] mg PO once db 08:01 Drug: diphenhydrAMINE PO 25 mg PO once Route: PO; db 11:41 Follow up: Response: No adverse reaction db 08:03 Drug: Lactulose PO 20 grams 30 ml PO once Volume: 30 ml; Route: PO; db 11:41 Follow up: Response: No adverse reaction db 08:05 Drug: Pantoprazole IVP 80 mg IVP once Route: IVP; Site: right hand; db 11:41 Follow up: Response: No adverse reaction db 08:18 Drug: Pantoprazole IV 8 mg/hr IV at 25 ml/hr continuous; (Standard dilution is 80 mg in db 250 mL NS) Route: IV; Rate: 25 ml/hr; Site: right hand; 09:00 Follow up: Response: No adverse reaction; IV Status: Order to discontinue infusion db Disposition Summary: 11/13/24 10:33 Discharge Ordered Notes: Location: Home ms3 Condition: Stable ms3 Diagnosis - Anemia, unspecified ms3 - Elevated Ammonia level ms3 - Unspecified cirrhosis of liver ms3 Followup: ms3 - With: Private Physician - When: 2 - 3 days - Reason: Recheck today's complaints, Re-evaluation by your physician Discharge Instructions: - Discharge Summary Sheet ms3 - Anemia ms3 Forms: - Medication Reconciliation Form ms3 - Antibiotic Education ms3 - Prescription Opioid Use ms3 - Patient Portal Instructions ms3 - Leadership Thank You Letter ms3 - SBAR form db Signatures: Dispatcher [employer] EDMS Hoang Landers DO DO ms3 Anais Gutierrez, RN RN db Steffen Dale MD MD sp4 Warner De La Torre Krystal RN RN kj2 Corrections: (The following items were deleted from the chart) 06:51 06:51 BASIC METABOLIC PANEL+C.LAB.BRZ ordered. EDMS EDMS 06:51 06:51 CBC+H.LAB.BRZ ordered. EDMS EDMS 06:51 06:51 HEPATIC FUNCTION+C.LAB.BRZ ordered. EDMS EDMS 06:51 06:51 Troponin High Sensitivity+C.LAB.BRZ ordered. EDMS EDMS 06:52 06:52 TYPE AND SCREEN+BB.LAB.BRZ ordered. EDMS EDMS 06:58 06:58 Chest Abdomen Pelvis Wo Con+CT.RAD.BRZ ordered. EDMS EDMS 06:58 06:58 AMMONIA+C.LAB.BRZ ordered. EDMS EDMS 07:09 07:08 PROTIME (+INR)+COAG.LAB.BRZ ordered. EDMS EDMS 07:09 07:08 PTT, ACTIVATED+COAG.LAB.BRZ ordered. EDMS EDMS 07:56 06:52 PACKED RBC LEUKORED+BB.LAB.BRZ ordered. EDMS EDMS 07: 06:55 ABO/RH typing ordered. EDMS EDMS :56 06:55 Antibody Screen ordered. EDMS EDMS
[2024-11-13 12:36] VITALS: TEMP 98.1
[2024-11-13 12:46] VITALS: O2SAT 100
[2024-11-13 12:54] VITALS: BP 108/68
--- NOTE | 2024-11-15 13:41 | EKG ---
Test Date: 2024-11-13 Test Time: 10:22:14 Machine Bobbin Winder: MONIK MEASUREMENT RESULTS: Intervals: Rate: 72 DE: QRSD: 82 QT: 360 QTc: 394 [place]: P: DE: QRS: 51 T: 46 INTERPRETIVE STATEMENTS: Accelerated Junctional rhythm Abnormal ECG Compared to ECG 10/28/2024 12:55:12 Accelerated junctional rhythm now present Sinus rhythm no longer present T-wave abnormality no longer present Electronically Signed On 11-15-24 13:37:09 LICENSED MIDWIFE by Jaylon Wheat
== END 2024-11-13 12:27 | disposition home or self-care (01) ==
LOC: ER 06:42
DX: D64.9 Anemia, unspecified (principal); E72.20 Disorder of urea cycle metabolism, unspecified; K74.60 Unspecified cirrhosis of liver; Z88.8 Allergy status to other drugs, medicaments and biological substances; K21.9 Gastro-esophageal reflux disease without esophagitis; I10 Essential (primary) hypertension; F31.9 Bipolar disorder, unspecified; B19.20 Unspecified viral hepatitis C without hepatic coma
CPT/HCPCS: 96365; 93005; 85025; 80048; 36415; 82140; 84132; 80076; 84484; 71250; 74176; 99285; J2470 ×2; J7050